=== PATIENT | female | born 1950 | race Caucasian/White ===

== ENCOUNTER 2016-12-06 23:50 | Emergency (ER) | payer MEDICARE, MEDICAID ==
[~2016-12-06] VITALS: Ht 165.1 cm; Wt 72.6 kg
[2016-12-07 00:18] LABS: HEMOGLOBIN 12.1 g/dL (12.2-16.2); LYMPH # 1.3 K/mm3 (0.7-4.5); LYMPH % 27.7 % (10-50.0)
--- NOTE | 2016-12-07 00:27 | Emergency Room Report ---
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 N Clinical Suspician of Infection? N Mental Status: 1 - Regular (Normal Baseline) Sepsis Risk:Low Sepsis Risk Have you (or family members/close friends) recently traveled outside the [place]? N If Yes, where/when: Have you had exposure to infectious disease within the past month? N TB? Other? Specify: Source patient, RN notes reviewed, EMS, detention records, old records Exam Limitations no limitations Cardiac Chest Pain Chest pain indicative of cardiac No Timing/Duration this evening Severity moderate ALLERGIES Coded Allergies: No Known Drug Allergies (Mild, 12/19/15) Home Medications Active Scripts Furosemide (Lasix) 20 MG PO DAILY #30 TAB Prov: 03/27/16 Na Phos,M-B/Na Phos,Di-Ba (Fleet Enema Extra) 230 ML RC PRN PRN constipation #1 Ref 1 Prov: 09/19/15 Reported Medications Potassium Chloride (Klor-Con 10) 10 MEQ PO BID #60 Donepezil HCl (Donepezil 5MG) 15 MG PO DAILY #30 TAB Metoprolol Tartrate 25 MG PO BID #60 TAB Memantine HCl 10 MG PO BID #60 Lamotrigine 50 MG PO BID #60 Gabapentin (Gabapentin 100MG) 100 MG PO BID #60 Loperamide Hcl (Loperamide) 2 MG PO Q6HP PRN STOMACH #30 Lorazepam (Lorazepam 1MG) 1 MG PO Q4HP PRN AGITATION Polyethylene Glycol 3350 (Miralax) 17 GM PO DAILYP PRN CONSTIPATION TRAMADOL HCL (Tramadol) 50 MG PO Q6HP PRN PAIN Simvastatin 10 MG PO DAILY CHOLECALCIFEROL (VITAMIN D3) (Vitamin D3) 2,000 IUNITS PO DAILY Rivaroxaban (Xarelto) 20 MG PO DAILY #30 RANITIDINE HCL (Ranitidine HCl) 150 MG PO BID #60 Metformin HCl (Metformin) 500 MG PO BID #60 Levothyroxine Sodium (Levothyroxine 0.025MG) 0.025 MG PO DAILY #30 Risperidone 1 MG PO QHS #30 TAB DILTIAZEM HCL (Diltiazem ER) 120 MG PO DAILY #30 Risperidone (Risperdal 0.25MG Tab) 0.25 MG PO BID History Medical History General CAD? No Angina: No [place]: No Hypertension? Yes Hyperlipidemia? Yes CHF? No DVT? No PE? No COPD? No Asthma? No Anemia? No GERD? No Gastric ulcers? No GI Bleed? No Hernia? No Thyroid Problems? Yes Hypothyroidism? No CVA? No Seizures? No Diabetes? Yes Insulin Dependent: No Insulin Pump: No Home FSBS? Yes Renal Insuffiency? No End Stage Renal Disease? No UTI? No Stones? No BPH? No GB Disease: No Nephritic Syndrome? No Asplenia? No Hepatitis? No Sickle Cell Disease? No Arthritis? No Migraines? No Cataracts? No Glaucoma? No MRSA? No HIV? No TB? No Anxiety? Yes Depression? Yes Cancer? No More? Yes Additional hx: AFIB, HX OF ENCEPHALOPATHY, HX OF PARANOID SXHIZOPHRENIA Immunization Hx DT/Tetanus Unknown Flu [id number] Pneumonia Refuses Surgical Hx Previous Surgery?N Social History Smoking Hx Smoker: Never Smoker Tobacco: No Type N/A Alcohol Alcohol: No Drugs none Review of Systems All Other Systems Reviewed and Negative Constitutional denies fever Eyes denies drainage ENT denies: ear discharge, epistaxis, throat pain. Respiratory denies cough, denies shortness of breath, denies wheezing Cardiovascular denies chest pain, denies palpitations, denies syncope Gastrointestinal denies abdominal pain, denies diarrhea, denies vomiting Genitourinary denies: dysuria, frequency, hesitancy, hematuria. Musculoskeletal see HPI, denies back pain, denies joint pain, denies joint swelling, denies neck pain, other Skin denies rash Psychiatric/Neurological denies anxiety, denies depressed, denies seizure Physical Exam Vital Signs Vital Signs Date Time Temp Pulse Resp B/P Pulse O2 O2 Flow FiO2 Ox Delivery Rate 12/07 0117 96 18 176/97 97 12/06 2352 98.7 104 18 140/99 97 - WBC >12,000 or <4,000 or 10% bands? 2 or more SIRS Criteria Met? B/P:176/97 MAP:112 Creatinine >2.0? UA output<0.5ml/kg/hr for 2 hrs? Platelet count >100,000? Lactate >2.0mmol/1? INR >1.2 or PTT > than 60 sec? Evidence of Organ Dysfunction? Provider documented clinical suspician of infection? N Sepsis Criteria Count: 1 Sepsis Risk: Low Sepsis Risk General Appearance no apparent distress Eye Exam - bilateral eye PERRL, bilateral eye EOMI Ear, Nose, Throat normal ENT inspection, no evid of tongue biting Neck supple, no bruit Respiratory Status No: respiratory distress. Lung Sounds bilateral: lungs clear. 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 No Results/Orders Laboratory Tests 12/07/16 0115: Urine Color YELLOW, Urine Appearance CLEAR, Urine pH 6.5, Ur Specific [place] 1.015, Urine Protein NEGATIVE, Urine Ketones NEGATIVE, Urine Blood NEGATIVE, Urine Nitrate NEGATIVE, Urine Bilirubin NEGATIVE, Urine Urobilinogen 1.0, Ur Leukocyte Esterase NEGATIVE, Urine WBC OCC, Urine Bacteria TRACE, Urine Mucus OCC, Urine Glucose NEGATIVE 12/07/16 0005: Sodium 143, Potassium 4.1, Chloride 105, Carbon Dioxide 31, BUN 20 H, Creatinine 0.8, Estimated Creat Clear 78, Estimated GFR (MDRD) 72, Glucose 104, Calcium 8.7, Total Bilirubin 0.2, AST 13 L, ALT 14, Alkaline Phosphatase 93, Creatine Kinase 27, CK-MB (CK-2) Rel Index 1.9, CK and CKMB Interp < 0.5, Troponin I 0.02, Total Protein 6.0 L, Albumin 3.3 L, Globulin 2.7, Albumin/ Globulin Ratio 1.2, WBC 4.8, RBC 4.11 L, Hgb 12.1 L, Hct 38.7, MCV 94.1, RDW 13.2, Plt Count 219, MPV 7.4, Gran % 67.5, Gran # 3.2, Lymphocytes % 27.7, Monocytes % 4.7, Eosinophils % 0.1, Basophils % 0.0 L, Lymphocytes # 1.3, Monocytes # 0.2, Eosinophils # 0.0, Basophils # 0.0, PUBS MCHC 31.3 L, MCH 29.4 Current Medication Orders Sig/Nathaniel Start time Last Medication Dose Route Stop Time Status Admin Sodium Chloride 10 ML PRN PRN 12/06 2344 AC IV 12/07 2356 Orders Procedure Date/time Status DIET-NOTHING BY MOUTH 12/07 B Active PELVIS AP ONLY 12/[address] HEAD W/O CONTRAST 12/[address] CERVICAL SPINE W/O CONT. 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 ST/Twave chgs XRAY/CT/US XRAY/CT/US 1 XRAY chest, pelvis XR interpretation by reviewed by me Xray Results no fracture seen XRAY/CT/US 2 CT head, C-spine CT interpretation by discussed w/radiologist Time results known: 0244 CT Results no fracture seen Departure Departure Time of Disposition 024 Disposition DC Home or Self Care(routine) Clinical Impression Primary Impression: Dizziness Secondary Impressions: A-fib Qualifiers: Atrial fibrillation type: chronic Qualified Code: I48.2 - Chronic atrial fibrillation Head contusion Qualifiers: Encounter type: initial encounter Contusion of head detail: unspecified part of head Qualified Code: S00.93XA - Contusion of unspecified part of head, initial encounter Condition STABLE Referrals Adrian May MD (Family) Patient Instructions How to Prevent Falls Additional Instructions resume meds and see pcp for follow up Discharge Counseling Counseled pt/family regarding diagnosis, test results, medications/RX, follow up needs ED Critical Care Critical Care No at 0252
[2016-12-07 01:00] LABS: BUN 20 mg/dL (7-18); GFR (ESTIMATED) 72 ML/MIN (59-)
[2016-12-07 01:24] LABS: URINE BILIRUBIN - DIPSTICK NEGATIVE (NEG); URINE BLOOD NEGATIVE (NEG)
[2016-12-07 03:09] VITALS: BP 176/97
--- NOTE | 2016-12-07 07:45 | RADIOLOGY REPORT PS360 ---
CHEST(2 VIEWS-NOT PORTABLE) COMPARISON: Oral upright chest 03/23/2016 HISTORY: Chest pain after a fall TECHNIQUE: PA and lateral chest FINDINGS: The lung levy are fairly well-expanded and appear clear of infiltrate. There is moderate aortic tortuosity with mild cardiomegaly but is no evidence of failure. There are calcified left hilar nodes. There are mild degenerative changes of the upper thoracic spine. IMPRESSION: Nonacute chest findings
--- NOTE | 2016-12-07 07:46 | RADIOLOGY REPORT PS360 ---
PELVIS AP ONLY COMPARISON: None HISTORY: Leg pain after a fall TECHNIQUE: AP pelvis FINDINGS: The iliac bones and pubic bones appear intact. Both hips are normally articulated with no evidence of fracture. There is mild asymmetrical joint space narrowing of the left hip joint. The SI joints and symphysis pubis appear normal. There is mild disc space narrowing and osteophytic spurring at the L4-5 level. IMPRESSION: Mild osteoarthritis left hip and degenerative disc disease L4-5, pelvis negative for acute fracture
--- NOTE | 2016-12-07 07:48 | RADIOLOGY REPORT PS360 ---
CT HEAD W/O CONTRAST COMPARISON: Noncontrast CT scan of brain 03/23/2016 HISTORY: Patient fell hitting left side of head TECHNIQUE: Multiaxial scans obtained from base skull to the vertex and were performed without IV contrast. FINDINGS: The base of the skull is normal, the mastoids are clear. The ventricular system is normal. There is no ischemic infarct or bleed and there are no extra-axial fluid collections. The sylvian fissures and cortical sulci are mildly prominent. Bony calvarium is intact. IMPRESSION: Findings of mild age-appropriate cortical atrophy no acute intracranial pathology noted, agree the [facility] report.
--- NOTE | 2016-12-07 07:50 | RADIOLOGY REPORT PS360 ---
CT CERVICAL SPINE W/O CONT COMPARISON: None HISTORY: Neck pain after a fall TECHNIQUE: Multiple axial scans of the cervical spine were obtained. Sagittal coronal reformats were evaluated as well. FINDINGS: There is normal curvature and alignment. There is mild generalized osteopenia. There is disc space narrowing and posterior and anterior osteophytic spurring at the C5-6 level. There is mild neural foraminal narrowing on the left side C5-C6 secondary to spurring of the uncinate joints. The prevertebral soft tissues are normal and the odontoid is normal. IMPRESSION: Generalized osteopenia, moderate degenerative disc disease C5-6, no acute pathology noted, agree the [facility] report
--- OUTSIDE RECORDS SUMMARY | 2016-12-14 01:29 | External Medical Summary Rpt | CCD ---
Author Author , DONNIE Organization DONNIE Address Unknown Phone [email or web address] Care Team Providers Care Assurance Sourcing Manager Name Role Phone ABOChaitanya PENALOZA TAR, Unavailable Unavailable ABOU TREMAINE TAR SUSIE MAR, SUSIE MAR Unavailable Unavailable [facility] Unavailable Unavailable MANAGEMENT, [facility] Unavailable Unavailable MANAGEMENT,, [facility], DAVID RUTH, DAVID RUTH Unavailable Unavailable [facility] Unavailable Unavailable [facility], [facility], Unavailable Unavailable [facility] RESENDIZ Unavailable Unavailable YUNIOR NICHOLSON, OLIVIA NICHOLSON Unavailable Unavailable CARLITOS BAKER, Unavailable Unavailable CARLITOS BAKER [facility] Unavailable Unavailable MEDICAL GROUP, [facility] JOSE DE JESUS ROGER Unavailable Unavailable CESIA THOMASKE BEINEKE Unavailable Unavailable BESSON, BESSON Unavailable Unavailable BHUTTA, DUKE J, Unavailable Unavailable BHUTTA, DUKE J [facility] Unavailable Unavailable ASSOC, [facility] JONES ALL, JONES ALL Unavailable Unavailable BROWN CARMINE, BROWN CARMINE Unavailable Unavailable [facility] Unavailable Unavailable SERVICE, [facility] Unavailable Unavailable SERVICE, [facility] DELILAH, ABDIAZIZ S, Unavailable Unavailable DELILAH, ABDIAZIZ S [facility] Unavailable Unavailable SPECIALIS, [facility] Unavailable Unavailable ASSOC, [facility] CHOLERA AUSTIN, CHOLERA Unavailable Unavailable [facility]USTIN [facility] Unavailable Unavailable INC, [facility], Unavailable Unavailable [facility] Unavailable Unavailable [facility], [facility] Unavailable Unavailable [facility], [facility] AGUILAR OSIEL, AGUILAR OSIEL Unavailable Unavailable BARB GRE, BARB Unavailable Unavailable GRE BARB PAT, BARB Unavailable Unavailable PAT CRAGER JAM, CRAGER Unavailable Unavailable JAM HAYDE, HAYDE Unavailable Unavailable HAYDE KENNETH, Unavailable Unavailable HAYDE KENNETH [facility] Unavailable Unavailable ASSOC, [facility] Unavailable Unavailable ASSOC, [facility] Un[facility] Unavailable [facility], [facility] Unavailable Unavailable ANKLE, [facility] SEBASTIÁN RAN, SEBASTIÁN Unavailable Unavailable RAN MAY JENNIFER, MAY JENNIFER Unavailable Unavailable HEAVEN OLVERA, Unavailable Unavailable HEAVEN OLVERA MADELINE AUSTIN, MADELINE AUSTIN Unavailable Unavailable DUKES JENNIFER, DUKES JENNIFER Unavailable Unavailable [facility] Unavailable Unavailable SPECIALI, [facility] SHABBIR RABIA, SHABBIR Unavailable Unavailable RABIA ULI SHEA, Unavailable Unavailable U[facility] SHE[facility] Unavailable Unavailable LLC, [facility] [email or web address] [facility] Unavailable Unavailable LLC, [facility] [email or web address] [facility] Unavailable Unavailable CORPORATI, [facility], [facility] Unavailable Unavailable [facility], [facility] Unavailable Unavailable [facility], [facility] AND Unavailable Unavailable [facility], [facility] Unavailable [facility]available [facility] Unavailable Unavailable TRANSPORTATION SER, [facility] LEIJA STAR, LEIJA STAR Unavailable Unavailable BEACH ELZ, BEACH Unavailable Unavailable ELZ ALEJANDRA BEACH T, Unavailable Unavailable ALEJANDRA BEACH EYAL, EYAL Unavailable Unavailable [facility] Unavailable Unavailable CORPOR[facility], [facility] GREEN MAR, GREEN MAR Unavailable Unavailable [facility], Unavailable Unavailable [facility] GRIMBALL EDW, Unavailable Unavailable [facility] KNIGHT TATUM, KNIGHT TATUM Unavailable Unavailable CARLITOS SUBRAMANIAN, Unavailable Unavailable CARLITOS SUBRAMANIAN [facility] Unavailable Unavailable INC, [facility] Unavailable Unavailable HOSPITAL P, [facility] HAY, RUSTY L, HAY, Unavailable Unavailable RUSTY L GREGORY, GREGORY Unavailable Unavailable GREGORY, GREGORY Unavailable Unavailable HILTY HOL, HILTY HOL Unavailable Unavailable [facility], Unavailable Unavailable [facility] HO[facility]LE[facility] AND, Unavailable Unavailable HOELLEIN AND OKRTNEY, KORTNEY Unavailable Unavailable KORTNEY ELISA, KORTNEY ELISA Unavailable Unavailable [facility] Unavailable Unavailable CARE LL, [facility] LOO IBR, LOO IBR Unavailable Unavailable [facility] Unavailable Unavailable EQUIPMEN, [facility] Unavailable Unavailable [facility], [facility] Unavailable Unavailable EQUIPMENT, [facility] PADILLA MACARIO, PADILLA Unavailable Unavailable MACARIO JICHA GRE, JICHA GRE Unavailable Unavailable FOUNTAIN ONEYDA, FOUNTAIN ONEYDA Unavailable Unavailable [facility] ONEYDA, [facility] ONE[facility]DA Unavailable Unavailable JOYO NOS, JOYO NOS Unavailable Unavailable JOSE, VICENTE M, Unavailable Unavailable VICENTE GARCIA M KARSNER CAR, KARSNER Unavailable Unavailable CAR CONCETTA FISTER CHRIS, Unavailable Unavailable CONCETTA FISTER CHRIS [facility], Unavailable Unavailable [facility] Unavailable Unavailable IMAGING ASS, [facility] CHIN TRENT, CHIN TRENT Unavailable Unavailable CHIN GUL, CHIN GUL Unavailable Unavailable CAMERON BAUDILIO, CAMERON BAUDILIO Unavailable Unavailable CARLOS ENRIQUE CHI, CARLOS ENRIQUE [facility] Unavailable [facility] Un[facility] Unavailable Unavailable HOLDING, [facility] Unavailable Unavailable HOLDINGS, [facility] Unavailable Unavailable HOLDINGS, [facility] Unavailable Unavailable AGENCY, [facility] Unavailable Unavailable [facility]ENCY, [facility] Unavailable Unavailable AGENCY ON AGING, [facility] Unavailable Unavailable [facility] Unavailable Unavailable [facility], [facility] Unavailable Unavailable [facility], [facility] LANGFELS SON, Unavailable Unavailable [facility] SON DAMON JR DWI, DAMON Unavailable Unavailable JR DWI [facility] Unavailable Unavailable SUPPLY, [facility] Unavailable Unavailable SUPPLY INC., [facility] WOOD MCDONALD, Unavailable Unavailable WOOD MCDONALD LUKAT HENRY, LUKAT HENRY Unavailable Unavailable LUKAT HENRY, LUKAT HENRY Unavailable Unavailable [facility] Unavailable Unavailable INC, [facility] Unavailable Unavailable SERVICES, [facility] CASTRO ROCHA, Unavailable Unavailable CASTRO ROCHA, Unavailable Unavailable RALPH JENKINS, Unavailable Unavailable RALPH ALFARO JR CLI, Unavailable Unavailable RAMEY JR CLI RAMEY JR CLI, Unavailable Unavailable [facility]Y [facility] CLI URENA STAR, URENA STAR Unavailable Unavailable URENA STAR, URENA STAR Unavailable Unavailable HARRIS DEN, Unavailable Unavailable STEVEN DEN REBEL AUSTIN, Unavailable Unavailable REBEL AVILA [address] [place] [address], Unavailable Unavailable [facility] MED[facility] FLORIN, MEDROSO Unavailable Unavailable FLORIN [facility] Unavailable Unavailable SERV ALLIGATOR SHEAR OPERATOR R, [facility] SERV ALLIGATOR SHEAR OPERATOR R [facility] Unavailable Unavailable SERV ALLIGATOR SHEAR OPERATOR R, [facility] SERV ALLIGATOR SHEAR OPERATOR R [facility] Unavailable Unavailable INC, [facility] RONALD WOLFE Unavailable Unavailable AIDEN Manuel CHRISTOPHER J [facility] Unavailable Unavailable [facility], [facility] Unavailable Unavailable [facility], [facility] Unavailable Unavailable ASSOC LABORATORY, [facility] Unavailable Unavailable ASSOCIATE, [facility] CRAFT MANAGER [facility] Unavailable Unavailable [facility]OCIATES, [facility], Unavailable Unavailable [facility] NATHALIE HOOK, Unavailable Unavailable NATHALIE HOOK JENNIFER, JOSH Unavailable Unavailable JENNIFER ASHA KWA, ASHA KWA Unavailable Unavailable [facility] Unavailable [facility] [place], [facility] [place], Unavailable Unavailable PLL[facility], [facility] Unavailable Unavailable CARE [facility], [facility] PETTEY JAM, PETTEY Unavailable Unavailable JAM [facility] Unavailable Unavailable [facility] Unavailable Unavailable [facility] & Unavailable Unavailable INTER[facility], [facility] PROUDFOOT GLE, Unavailable Unavailable [facility] QASHOU WILSON, QASHOU Unavailable Unavailable [facility] Unavailable Unavailable [facility], [facility] RASLAU FLA, RASLAU Unavailable Unavailable FLA TAVARES MAY, TAVARES MAY Unavailable Unavailable REKHRAJ, SADAF, Unavailable Unavailable REKHRAJ, SADAF KIMBLE GRE, KIMBLE Unavailable Unavailable GRE ARANA SEA, ARANA Unavailable Unavailable SEA [facility], [facility] Unavailable Unavailable LICO JENIFFER, LICO JENIFFER Unavailable Unavailable [facility] Unavailable Unavailable ENTERPRISES, [facility] ENTERPRISES HUSSEIN COR, [facility] Unavailable Unavailable Unavailable Unavailable PHYSICIA, PHYSICIA FERNANDEZ JAY JAY, FERNANDEZ JAY JAY Unavailable Unavailable FERNANDEZ, KHALED, FERNANDEZ, Unavailable Unavailable KHALED SHARAN WHITING, SHARAN Unavailable Unavailable JOHANNE WHITING, SHARAN Unavailable Unavailable CASTRO MENDEZ, Unavailable Unavailable CASTRO TSANG SCHUDHEISDov BONNER, Unavailable Unavailable SCHUDHEISZ BONNRE SCIFRES ANG, SCIFRES Unavailable Unavailable ANG SCIFRES ANG, SCIFRES Unavailable Unavailable ANG SHI RIGO, SHI Unavailable Unavailable RIGO SHANKS LYN, SHANKS Unavailable Unavailable LYN SKEENS PAUL, SKEENS Unavailable Unavailable PAUL SKEENS, MARYAM L, Unavailable Unavailable SKEENS, MARYAM L [facility], Unavailable Unavailable [facility], Unavailable Unavailable [facility], Unavailable [facility]available [facility], Unavailable Unavailable [facility] Unavailable Unavailable EQUIPME, [facility] Unavailable Unavailable EQUIPME, [facility] Unavailable Unavailable EMERGENCY PHYS, [facility] EMERGENCY PHYS [facility] Unavailable Unavailable PHYSICIAN SERVI, [facility] PHYSICIAN SERVI [facility] & Unavailable Unavailable ORTHOPAEDI, [facility], Unavailable Unavailable [facility] ALE BON, Unavailable Unavailable ALE BON SUPINSKI JENNIFER, Unavailable Unavailable SUPINSKI JENNIFER EARL STA, Unavailable Unavailable EARL STA THANNOLI, BECCA, Unavailable Unavailable THANNOLI, BECCA [facility] Unavailable Unavailable DISORDER, [facility] Unavailable Unavailable [place], [facility] [place] MEI RENATO, MEI RENATO Unavailable Unavailable [facility], Unavailable Unavailable [facility] EMS, [place] Unavailable [facility], [place] Unavailable Unavailable [facility] HOSP [facility], Unavailable Unavailable [facility] Unavailable [facility]available HOSPITAL-HOSPITALIS, [facility]PITAL[facility]OSPITAL[facility] Unavailable Unavailable HOSPITAL-HOSPITALIST, [facility] HOSPITAL-HOSPITALIST [facility] Unavailable Unavailable DEPARTM, [facility] Unavailable Unavailable DEPART, [facility] Unavailable Unavailable DEPARTMENT, [facility] DEPARTMENT [facility], Unavailable Unavailable [facility]; Unavailable Unavailable [facility], [facility]; [facility]; Unavailable Unavailable [facility], [facility]; [facility] Unavailable Unavailable [facility] [address] Unavailable Unavailable BREE IV ALL, Unavailable Unavailable BREE IV ALL VICENTA GIRON, Unavailable Unavailable VICENTA GIRON LAURA D, Unavailable Unavailable LOUIS, BEVERLY D WINKLEY JAM, WINKLEY Unavailable Unavailable JAM WOODROOF D., WOODROOF Unavailable Unavailable D. WOODY JAM, WOODY JAM Unavailable Unavailable WOODY II JAM, WOODY Unavailable Unavailable II JAM AMBERLY, CASTRO R, Unavailable Unavailable CASTRO GAMING R MORGAN MAYNOR, Unavailable Unavailable MORGAN MAYNOR KELLEY KOL, KELLEY Unavailable Unavailable KOL YANICKO JR CARLTON, Unavailable Unavailable YANICKO JR CARLTON YANICKO JR CARLTON, Unavailable Unavailable YANICKO JR CARLTON SHANDA MEN, SHANDA Unavailable Unavailable MEN ZAGUROVSKAYA MAR, Unavailable Unavailable ZAGUROVSKAYA MAR ZIOLKOWSKI RENEE, Unavailable Unavailable ZIOLKOWSKI RENEE Purpose Continuity of Care Document - 03-19-2007 through 2016 Problems Code Diagnosis DOS Provider Status B351 TINEA 08-02-2016 GREGORY UNGUIUM [id number] PAIN IN 08-02-2016 GREGORY RIGHT TOES [id number] PAIN IN 08-02-2016 GREGORY LEFT TOES E119 TYPE 2 06-03-2016 [facility]ETES MEDICAL MELLITUS SUPPLY [email or web address] WITHOUT COMPLICATIO NS I4891 UNSPECIFIED 04-19-2016 [facility] N R9431 ABNORMAL 04-19-2016 [facility] MED[facility] ELECTROCARD SERV IOGRAM [facility] M1711 UNILATERAL 04-16-2016 [facility]STE[facility]AR[facility] TIS RIGHT KNEE M1712 UNILATERAL 04-16-2016 [facility] OSTEOARTHRI [facility] TIS LEFT KNEE L40358 EFFUSION 04-16-2016 [facility] LEFT KNEE [facility] I482 CHRONIC 03-25-2016 [facility] A[facility]IAL [facility], FIBRILLATIO [facility] N R55 SYNCOPE AND 03-25-2016 [facility] COLLAPSE PHYSICIANS, [facility] Z0389 ENCOUNTER 03-25-2016 [facility] SUSPCT DZ & IMAGING ASS COND RULED OUT I959 HYPOTENSION 02-24-2016 [facility] UNSPEC[facility] ASS R51 HEADACHE 02-24-2016 [facility] R079 CHEST PAIN 12-06-2015 [facility] P R8458BP CONTUSION 12-06-2015 [place] [facility] P ENCOUNTER O294RMR FALL SAME 12-06-2015 [facility] ALFONSOL SLIP [facility] TRIP W/O HOSPITAL P SUB STRIK OBJ INIT T51723 UNS PLACE 12-06-2015 [facility] NON [facility] P [facility]ACE OF OCCUR EXT I10 ESSENTIAL 09-19-2015 [facility]IMARY [facility] HYPERTENSIO INC N K319 DISEASE OF 09-19-2015 [facility]OMACH [facility] DUODENUM INC UNSPECIFIED K5900 CONSTIPATIO 09-19-2015 [facility] N [facility] HOS[facility] UNSPECIFIED INC N390 URINARY 09-19-2015 [facility] TRACT [facility] INFECTION INC SITE NOT SPECIFIED R630 ANOREXIA 09-19-2015 [facility] R634 ABNORMAL 09-19-2015 [facility] WEIGHT LOSS MEM HOS[facility] INC N27030 PERSONAL 09-19-2015 [facility] HISTORY OF MEM HOSP NICOTINE INC DEPENDENCE R69 ILLNESS 07-06-2015 [facility] UNSPECIFIED TRANSPORTAT ION SER [id number] DSPL OBL FX 07-06-2015 [place] SHAFT LT MEDICAL FIBULA IMAGING ASS SUBSQT CLOS FX RTN [id number] OT FX 07-06-2015 [facility] UPPER & MEM HOSP LOWER UNS INC FIBULA INIT ENC CLOS FX [id number] OT FX 06-02-2015 [facility] U[facility]ER & HOME LOWER LT MEDICAL FIBULA INIT EQUIPME ENC CLOS FX [id number] DISPL 05-31-2015 [place] SPIRAL FX MEDICAL SHAFT LT IMAGING ASS FIB SUBS CLOS FX RTN [id number] OT FX 05-31-2015 [facility] UPPER & PHYSICIANS LOWER LT GROUP FIB SUBSQT CLOS RTN HEAL O52EBSE UNSPECIFIED 05-17-2015 [facility] FALL PHYSICIANS INITIAL GROUP ENCOUNTER J86509 PAIN IN 05-14-2015 [place] LEFT ANKLE MEDICAL IMAGING ASS N06653 PAIN IN 05-14-2015 [place] LEFT LOWER MEDICAL LEG IMAGING ASS C99438 PAIN IN 05-14-2015 [facility] LEFT FOOT MEDICAL IMAGING ASS M7989 OTHER 05-14-2015 [place] SPECIFIED MEDICAL SOFT TISSUE IMAGING ASS DISORDERS R600 LOCALIZED 05-14-2015 [facility] E[facility]MA [facility] SERVICE E039 HYPOTHYROID 05-08-2015 WO[facility] ISM CHOLERA DO UNSPECIFIED INC I639 CEREBRAL 05-05-2015 [place] INFARCTION MEDICAL UNSPECIFIED IMAGING ASS R4182 ALTERED 05-05-2015 [facility] MENTAL [facility]ICAL STATUS IMAGING ASS UNSPECIFIED G9340 ENCEPHALOPA 04-27-2015 [facility] UNSPECIFIED MEDICAL GROUP M179 OSTEOARTHRI 04-25-2015 [facility] TIS OF KNEE RADIOLOGY ASSOC UNSPECIFIED D69369 PAIN IN 04-25-2015 [facility] LEFT HIP RADIOLOGY ASSOC A60093 SPONDYLOSIS 04-25-2015 [facility] W/O RADIOLOGY MYELOPATH/R ASSOC ADICULOPATH Y LUMB RGN M545 LOW BACK 04-25-2015 [facility] PAIN RADIOLOGY ASSOC L62302 PAIN IN 04-25-2015 [facility] LEFT LEG HEALTH MEDICAL GROUP G9341 METABOLIC 04-23-2015 [facility] ENCEPHALOPA HEALTH THY MEDICAL GROUP I313 PERICARDIAL 04-22-2015 [facility] EFFUSION HEALTH NONINFLAMMA MEDICAL TORY GROUP I340 NONRHEUMATI 04-22-2015 [facility] C MITRAL HEALTH VALVE MEDICAL INSUFFICIEN GROUP CY I361 NONRHEUMATI 04-22-2015 [facility] C TRICUSPID HEALTH VALVE MEDICAL INSUFFICIEN GROUP CY I371 NONRHEUMATI 04-22-2015 [facility] C PULMONARY HEALTH VALVE MEDICAL INSUFFICIEN GROUP CY I6523 OCCLUSION & 04-22-2015 [facility] STENOSIS HEALTH BILATERAL MEDICAL CAROTID GROUP ARTERIES R479 UNSPECIFIED 04-21-2015 [facility] SPEECH RADIOLOGY DISTURBANCE ASSOC S R531 WEAKNESS 04-21-2015 [facility] B73838V UNS FB 04-21-2015 [facility] LARYNX RADIOLOGY CAUSING ASSOC ASPHYXIATIO N INITIAL ENC N40445 CORTICAL 03-18-2015 SCIFRES ANG AGE-RELATED CATARACT BILATERAL H5202 HYPERMETROP 03-18-2015 SCIFRES ANG IA LEFT EYE H5203 HYPERMETROP 03-18-2015 SCIFRES ANG IA BILATERAL E07683 REGULAR 03-18-2015 SCIFRES ANG ASTIGMATISM BILATERAL E559 VITAMIN D 03-17-2015 COMBINED DEFICIENCY PHYSICIANS UNSPECIFIED LA E785 HYPERLIPIDE 03-17-2015 COMBINED NAYANA PHYSICIANS UNSPECIFIED LA 4359 UNSPECIFIED 11-02-2014 [facility] TRANSIENT SERV CEREBRAL FOUNDATION ISCHEMIA 34557 OTHER 11-02-2014 [facility] ALTERATION AMBULANCE OF SERV [place]IG[place] [address] ATRIAL 10-19-2014 [facility]ICAL FIBRILLATIO SERV N FOUNDATION 52137 NONSPECIFIC 10-19-2014 [facility] ABNORMAL SERV ELECTROCARD FOUNDATION IOGRAM 04606 DIAB W/O 10-12-2014 [facility] COMP TYPE [place] II/UNS NOT LLC STATED UNCNTRL 4019 UNSPECIFIED 10-12-2014 [facility]ENTIAL [facility] N 28772 HYPERTONICI 10-12-2014 [facility] TY OF [place] BLADDER [facility] 1101 DERMATOPHYT 09-29-2014 [facility] OSIS OF FOOT & NAIL ANKLE CENT 51885 DIAB 09-29-2014 [facility] W/PERIPH FOOT & CIRC D/O ANKLE CENT TYPE II/UNS NOT UNCNTRL 7295 PAIN IN 09-29-2014 [facility] SOFT FOOT & TISSUES OF ANKLE CENT LIMB 54102 09-24-2014 [facility] TRANSIT ENTERPRISES 7840 HEADACHE 08-29-2014 EMERGENCY COVERAGE CORPORATI 78892 CHEST PAIN 08-29-2014 [facility] UNSPECIFIED HOSPITAL-HO SPITALIS 2724 OTHER AND 08-17-2014 [facility] UNSPECIFIED [place] [facility] HYPERLIPIDE NAYANA 06494 ALTERED 07-17-2014 [facility] MENTAL EMS STATUS 67253 ICI OTH&UNS 07-17-2014 [facility] NATR W/O EMS OPEN ICW UNS STATE CONSC 12387 ACUTE 06-26-2014 [facility] RESPIRATORY [facility] PHYSICIA 9721 POISN 06-26-2014 [facility] GLYCOSIDES& PHYSICIA RX SIMILAR ACTION 496 CHRONIC 06-23-2014 [facility] [place] [facility] RADIOLOGY OBSTRUCTION NEC 51815 OTHER 06-22-2014 [facility] SPECIFIED RADIOLOGY CARDIAC ASSOC DYSRHYTHMIA S 4279 UNSPECIFIED 06-22-2014 [facility] CARDIAC FIRE/EMS DYSRHYTHMIA 5180 PULMONARY 06-20-2014 [facility] COLLAPSE [facility]OLOGY ASSOC 586 UNSPECIFIED 06-19-2014 CARDIO AND RENAL ELECTRO FAILURE SPECIALIS 5119 UNSPECIFIED 06-18-2014 [facility] PLEURAL [facility] EFFUSION ASSOC 31341 DIAB W/O 06-14-2014 KAROLINE KING MENTION CLI COMP TYPE II/UNS TYPE UNCNTRL 4011 ESSENTIAL 06-14-2014 KAROLINE KING HYPERTENSIO CLI N, BENIGN 79415 SINOATRIAL 06-14-2014 [facility] DYSFUNCTION 5849 ACUTE 06-14-2014 KAROLINE KING KIDNEY CLI FAILURE UNSPECIFIED E9421 CARDIOTONIC 06-14-2014 [facility] GLYCOS[place]ES [place] [address] OTHER 06-12-2014 [facility] NONSPECIFIC RADIOLOGY ABNORMAL ASSOC FINDING OF LUNG FIELD 58543 OTHER 06-10-2014 [facility] DISEASES OF RADIOLOGY LUNG NOT ASSOC ELSEWHERE CLASSIFIED V5882 ENCOUNTER 06-10-2014 [facility] FITTING&ADJ RADIOLOGY ASSOC NON-VASCULA R CATHETER NEC 10758 METABOLIC 06-09-2014 [facility] ENCEPHALOPA [facility] THY REGIONAL HOS 4240 MITRAL 06-09-2014 [facility] DISORDERS 4241 AORTIC 06-09-2014 [facility] DISORDERS 4242 TRICUSPID 06-09-2014 [facility] DISORDERS SPEC NONRHEUMATI C 63790 ATRIAL 06-09-2014 [facility] HOS 4299 UNSPECIFIED 06-09-2014 [facility] DISEASE 77195 METHICILLIN 06-09-2014 [facility] RESISTANT UN[facility] PNEUMONIA REGIONAL D/T STAPH HOS AUREUS 22536 OTHER SHOCK 06-09-2014 [facility] MENTION OF REGIONAL TRAUMA HOS 01172 OTHER 06-09-2014 [facility] DYSPNEA AND RADIOLOGY ASSOC RESPIRATORY ABNORMALITI ES 7907 BACTEREMIA 06-09-2014 [facility] REGIONAL HOS 9778 POISONING 06-09-2014 [facility] OTHER SPEC MEDICAL DRUGS&MEDIC INAL SUBSTANCES 9779 POISONING 06-09-2014 [facility] UNSPECIFIED EMS DRUG/MEDICI NAL SUBSTANCE 9899 TOX EFF UNS 06-09-2014 [facility] NONMEDICINA L SRC E9505 LUCERO&SLF-INF 06-09-2014 [facility] LICT POISN MEDICAL UNS RX/MEDICINA L [facility] V5881 FITTING AND 06-09-2014 [facility] ADJUSTMENT RADIOLOGY OF ASSOC VASCULAR CATHETER 250 DIABETES 05-24-2014 [facility] MELLITUS [facility] AREA AGENCY 64515 ATHEROSLERO 05-14-2014 [facility] NATV ART FOOT & EXTREM ANKLE CENT W/INTERMIT CLAUDICAT 81414 MORBID 05-13-2014 [facility] OBESITY CARDIOLOGY 12643 UNSPECIFIED 05-13-2014 [facility] SLEEP CARDIOLOGY APNEA 40036 PRECORDIAL 05-13-2014 [facility] PAIN CARDIOLOGY 83751 HYPERSOMNIA 05-10-2014 THE [facility]G AND SLEEP UNSPECIFIED DISORDER 27479 OTHER SLEEP 05-10-2014 [facility] DISTURBANCE DISORDER S 4589 UNSPECIFIED 04-08-2014 [facility] HYPOTENSION REG HOSPITAL V5869 LONG-TERM 04-08-2014 [facility] (CURRENT) UNION USE OF REG OTHER HOSPITAL MEDICATIONS E9504 LUCERO&SLF-INF 04-07-2014 [facility] OTH PHYS RX&[facility]ICINA L [facility] 87247 SPASM OF 03-15-2014 EMERGENCY MUSCLE COVERAGE CORPORATI 7802 SYNCOPE AND 03-15-2014 [facility] 8242 CLOSED 03-15-2014 [facility] FRACTURE OF IMAGING & LATERAL INTERVENTI MALLEOLUS 23519 UNSPECIFIED 03-15-2014 [facility]; SPRAIN AND MONTICEL STRAIN 920 CONTUSION 03-15-2014 EMERGENCY OF FACE COVERAGE SCALP AND CORPORATI NECK EXCEPT EYE 01388 HEAD 03-15-2014 EMERGENCY INJURY, COVERAGE UNSPECIFIED CORPORATI V714 OBSERVATION 03-15-2014 [facility] FOLLOWING IMAGING & OTHER INTERVENTI ACCIDENT 26267 UNSPECIFIED 03-11-2014 [facility] INFECTION IN CCE & UNS SITE 78638 NAUSEA WITH 03-11-2014 [facility]OMIT[facility] CRAFT MANAGER 15722 VOMITING 03-11-2014 EMERGENCY ALONE COVERAGE CORPORATI 45971 CORONARY 03-02-2014 [facility] CORONARY ARTERY 24372 SHORTNESS 03-02-2014 [facility] BREATH CARDIOLOGY 7140 RHEUMATOID 02-16-2014 [place] [address] MIXED 02-16-2014 PERSONAL INCONTINENC TOUCH HOME E URGE AND CARE OF STRESS 74925 UNSPECIFIED 01-12-2014 [facility] CONSTIPATIO ASSOCIATE N 7881 DYSURIA 01-12-2014 [facility] CRAFT MANAGER 63058 OBSTRUCTIVE 01-10-2014 [facility]; [facility] 93538 HYPOXEMIA 01-10-2014 [facility]; [facility] 41895 UNSPECIFIED 12-10-2013 [facility] TINNITUS 75435 SENSORINEUR 12-10-2013 [facility] AL HEARING LOSS BILATERAL 3899 UNSPECIFIED 12-10-2013 [facility] NO[facility] HEARING AND THROAT LOSS SPECIALI 2449 UNSPECIFIED 11-21-2013 [facility] HYPOTHY[facility]ID [facility] ISM 4139 OTHER AND 11-20-2013 [facility] UNSPECIFIED SERV [facility] 4293 CARDIOMEGAL 11-20-2013 [facility] 4471 STRICTURE 11-20-2013 [facility] ARTERY SERV [facility] 40290 OTHER 11-20-2013 [facility] N PH[facility]ICIAN FATIGUE SERVI 7869 OTH 11-20-2013 [facility] SYMPTOMS SERV INVOLVING FOUNDATION RESPIRATORY SYSTEM&CHES T 58385 OTHER 11-19-2013 [facility] CONVULSIONS EMS 7011 ACQUIRED 11-10-2013 [facility] KERATODERMA FOOT & ANKLE CENT 46017 UNSPECIFIED 11-09-2013 [facility] NOSE OTALGIA AND THROAT SPECIALI 49431 UNSPECIFIED 11-09-2013 [facility] NO[facility] AND THROAT TEMPOROMAND SPECIALI IBULAR JOINT DISORDERS 69891 DIAB 10-27-2013 [facility] W/NEURO FOOT & MANIFESTS ANKLE CENT TYPE II/UNS NOT UNCNTRL V741 SCREENING 08-19-2013 [facility] EXAMINATION CONUNTY FOR HEALTH PULMONARY DEPARTM TUBERCULOSI S 7850 UNSPECIFIED 05-17-2013 [facility] RADIOLOGY TACHYCARDIA ASSOC 4254 OTHER 05-13-2013 [facility] CARDIOMYOPA HILDA 4619 ACUTE 05-01-2013 [facility] SINUSITIS, MEDICAL UNSPECIFIED ASSOCIATE 0088 INTESTINAL 04-24-2013 [facility]FECTION [facility] DUE TO OTHER ORGANISM NEC 94662 UNS 04-24-2013 [facility] GASTRITIS&G EMS ASTRODUODIT IS W/O MENTION HEMORR V5867 LONG-TERM 04-24-2013 [facility] USE OF HOSP INC INSULIN 4658 ACUTE URIS 04-03-2013 [facility] OF OTHER MEDICAL MULTIPLE ASSOCIATE SITES 85592 FEVER 04-03-2013 [facility] UNSPECIFIED CRAFT MANAGER 3804 IMPACTED 04-01-2013 [facility] CERUMEN CRAFT MANAGER 4660 ACUTE 01-01-2013 [facility] BRONCHITIS CRAFT MANAGER 2720 PURE 11-05-2012 [facility] [place] [address] UNSPECIFIED 06-24-2012 [facility] ARTHROPATHY ORTHOPAEDI , LOWER LEG 52809 OSTEOARTHRO 06-13-2012 K[facility] Kamara UNSPEC MEDICAL WHETHER ASSOCIATE GEN/LOC UNSPEC SITE 4550 INTERNAL 03-12-2012 [facility] HEMORRHOIDS HOSP INC WITHOUT MENTION COMP 23582 DIVERTICULO 03-12-2012 [facility] SIS OF HOSP INC COLON 71462 ABDOMINAL 03-12-2012 [facility] PAIN RIGHT LOWER QUADRANT 74697 ABDOMINAL 03-12-2012 [facility] ST[facility] PAIN, LEFT LOWER QUADRANT V7651 SPECIAL 03-12-2012 [facility] SCREENING HOSP INC FOR MALIGNANT NEOPLASMS COLON 38025 PAIN IN 02-18-2012 [facility] 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, 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 7810 ABNORMAL 01-30-2012 [facility] INVOLUNTARY HOSP INC MOVEMENTS V5861 LONG-TERM 12-25-2011 [facility] (CURRENT) MEDICAL USE OF ASSOC LA ANTICOAGULA NTS 7804 DIZZINESS 10-31-2011 [facility] AND MEDICAL GIDDINESS ASSOCIATE 2722 MIXED 08-30-2011 [facility] HYPERLIPIDE [facility]ARDIOLOGY NAYANA 20164 OSTEOARTHRO 08-29-2011 [facility] CALL SIS UNSPEC WHETHER GEN/LOC LOWER LEG 79484 PAIN IN 08-27-2011 [facility] JOINT, [facility] 4919 UNSPECIFIED 07-29-2011 [facility] CHRONIC MEDICAL BRONCHITIS EQUIPMENT 412 OLD 07-23-2011 [facility] MYOCARDIAL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 [address] 4 KO M 31 09 09 UG 1 0 PE MG TE R TA BL ET LO 63 03 03 00 40 14 F 16 MA Ac RA 30 -1 -2 .0 & 88 RT ti ZE 40 8- 6- 00 H 61 IN ve PA [address] 3 EZ M 31 09 09 UG 1 0 YA MG NI RE TA BL ET LO 64 12 12 00 20 20 F 16 MA Ac RA 12 -0 -1 .0 & 70 RT ti ZE 50 3- 8- 00 H 19 IN ve PA [address] 3 EZ M 61 08 08 UG 2 0 YA MG NI RE TA BL ET LO 64 11 12 00 10 3 F 16 No Ac RA 12 -2 -0 .0 & 69 t ti ZE 50 5- 4- 00 H 13 Av ve PA [address] 7 ai M 61 08 08 UG la 2 0 bl MG e TA BL ET Immunization Name Date Rout CVX Reac Dose Comm Prov Is Faci e tion ent ider Refu lity Give sed n IIV3 12-02 141 MART No WOO 5-20 NIKI ICEL VACC 08 , LO INE LASHON MEDI SPLI RE MARJ T ASSO VIRU CIAT S ES 0.5 ML DOSA GE IM USE Results Labs Lab Lab Date Result Refere Interp Status Commen Order Detail nces retati t Range on Urinalysis dipstick W Reflex Microscopic panel in Urine (12-07-2016 01:15) Bacteri TRACE O complet a 017 ed [Presen 01:15 ce] in Urine sedimen t by Light microsc opy Mucus OCC OCC complet [Presen 017 ed ce] in 01:15 Urine sedimen t by Light microsc opy Urinalysis dipstick W Reflex Microscopic panel in Urine (12-07-2016 01:15) Appeara CLEAR CLEAR complet nce of 017 ed Urine 01:15 Bilirub NEGATIV NEG complet in 017 E ed [Presen 01:15 ce] in Urine by Test strip Erythro NEGATIV NEG complet cytes 017 E ed [Presen 01:15 ce] in Urine Color YELLOW YELLOW complet of 017 ed Urine 01:15 Ketones NEGATIV NEG complet 017 E ed [Presen 01:15 ce] in Urine by Automat ed test strip Mucus NEGATIV NEG complet [Presen 017 E ed ce] in 01:15 Urine sedimen t by Light microsc opy Nitrite NEGATIV NEG complet 017 E ed [Presen 01:15 ce] in Urine by Test strip Urobili 1.0 NEG complet nogen 017 ed [Presen 01:15 ce] in Urine by Test strip Procedures Procedure DOS Code Location Performer Comment DEBRIDEME 33781 GREGORY GREGORY NT NAIL 7 ANY METHOD 6/> FOR DIAB A5512 [place] ONLY MX 7 MEDICAL MEDICAL DNSITY SUPPLY SUPPLY INSRT DIR [employer] FORMD PRFAB EA DIAB ONLY A5500 [place] FIT CSTM 7 MEDICAL MEDICAL PREP&SPL SUPPLY SUPPLY SHOE MX 9158 [email or web address] DNSITY INSRT ECG 14956 MALLY KORTNEY ROUTINE 7 MEDICAL ECG SERV W/LEAST FOUNDATIO 12 LDS N I&R ONLY RADIOLOGI 06483 RADIOLOGY MUNCI[place] C 7 EXAMINATI ASSOCIATE ON KNEE [address] [place] [address] [place] HEAD/BRAI 7 MEDICAL N W/O IMAGING CONTRAST ASS MATERIAL ECG 24351 SAUL YEAL ROUTINE 7 PHYSICIAN ECG S, PLLC W/LEAST 12 LDS I&R ONLY FINAL G9638 [place] REPORTS 7 MEDICAL W/O DOC IMAGING 1/MORE ASS DOSE REDUCTION TECH FINAL G9638 [place] REPORTS 6 MEDICAL W/O DOC IMAGING 1/MORE ASS DOSE REDUCTION TECH ECG 59520 MAY VILLALOBOS ROUTINE 6 [facility] W/LEAST P 12 LDS I&[place] [address] [place] HEAD/BRAI 6 MEDICAL N W/O IMAGING CONTRAST ASS MATERIAL RADIOLOGI 75735 [place] MARTHA C 6 MEDICAL EXAMINATI IMAGING ON CHEST ASS SINGLE VIEW FRONTAL BLD GLU A4253 PRETTY PRETTY TEST/REAG 6 HOME HOME T STRIPS MEDICAL MEDICAL HOME BLD EQUIPME EQUIPME GLU MON-50 LANCETS A4259 PRETTY PRETTY PER BOX 6 HOME HOME OF 100 MEDICAL MEDICAL EQUIPME EQUIPME ECG 40649 MAY DAMON KING ROUTINE 6 [facility] W/LEAST P 12 LDS I&R ONLY LANCETS A4259 PRETTY PRETTY PER BOX 6 HOME HOME OF 100 MEDICAL MEDICAL EQUIPME EQUIPME BLD GLU A4253 PRETTY PRETTY TEST/REAG 6 HOME HOME T STRIPS MEDICAL MEDICAL HOME BLD EQUIPME [place]QU[place] GLU MON-50 [place] [address] MAY OLVERA INFUSION 6 [facility] THERAPY/P INC INC ROPHYLAXI S /DX 1ST TO 1 HR RADEX ABD 19107 MODESTO JONES ALL COMPL 6 MEDICAL AQT ABD IMAGING W/S/E/D ASS VIEWS 1 VIEW CH RADEX 87246 MAY OLVERA ANKLE 6 [facility] COMPLETE INC INC MINIMUM 3 VIEWS RADIOLOGI 39166 MODESTO JONES ALL C 6 MEDICAL EXAMINATI IMAGING ON ANKLE ASS 2 VIEWS NONEMERG A0120 FEDERATED FEDERATED TRNSPRT: 6 MINI-BUS TRANSPORT TRANSPORT MTN ATION SER ATION SER AREA/OT SYS WALKING L4386 PRETTY OLSEN BOOT 6 HOME HOME NON-PNEUM MEDICAL MEDICAL ATIC EQUIPME EQUIPME PREFAB CUSTOM FIT CAST Q4038 [facility] SUPPLIES 6 PHYSICIAN PHYSICIAN SHORT LEG S GROUP S GROUP CAST ADULT FIBERGLAS S NONEMERG A0120 FEDERATED FEDERATED TRNSPRT: 6 MINI-BUS TRANSPORT TRANSPORT MTN ATION SER ATION SER AREA/OTH SYS RADEX 17850 MAY OLVERA ANKLE 6 [facility] MEM [facility]OS[facility] COMPLETE INC INC MINIMUM 3 VIEWS BLD GLU A4253 PRETTY PRASADRELL TEST/REAG 6 HOME HOME T STRIPS MEDICAL MEDICAL HOME BLD EQUIPME EQUIPME GLU MON-50 LANCETS A4259 PRETTYGARTH PRASADRELL PER BOX 6 HOME HOME OF 100 MEDICAL MEDICAL EQUIPME EQUIPME CLTX DSTL 80456 [facility] PETTEY FIBULAR 6 PHYSICIAN JOHANNE LINCOLN LAT S GROUP MALLS W/O MANJ RADIOLOGI 73014 [place] C 6 MEDICAL KENNETH EXAMINATI IMAGING ON TIBIA ASS & FIBULA 2 VIEWS RADEX 06521 [place] FOOT 6 MEDICAL KENNETH COMPLETE IMAGING MINIMUM 3 ASS VIEWS RADIOLOGI 60323 [place] C 6 MEDICAL KENNETH EXAMINATI IMAGING ON ANKLE ASS 2 VIEWS GROUND A0425 [facility] MILEAGE 6 AMBULANCE AMBULANCE PER SERVICE SERVICE STATUTE MILE AMBULANCE A0429 [facility] SERVICE 6 AMBULANCE AMBULANCE BLS SERVICE SERVICE EMERGENCY TRANSPORT NONEMERG A0120 FEDERATED FEDERATED TRNSPRT: 6 MINI-BUS TRANSPORT TRANSPORT [facility] SY SBSQ 47991 [place] [address] [facility] [place] CARE/DAY DO INC 25 MINUTES SBSQ 42624 [place] [address] [facility] [facility]/DAY DO INC 35 MINUTES INITIAL 39787 [place] [address] [facility] [place] [facility]/DAY DO INC 70 MINUTES RADIOLOGI 27620 [place] ALL C 6 MEDICAL EXAMINATI IMAGING ON [place] [address] [place] ALL HEAD/BRAI 6 MEDICAL N W/O IMAGING CONTRAST ASS [facility] 62847 DRUZE DELA CRUZ DISCHARGE 6 HEALTH [place] DAY MEDICAL MANAGEMEN GROUP T > 30 MIN NONEMERG A0120 FEDERATED FEDERATED TRNSPRT: 6 MINI-BUS TRANSPORT TRANSPORT [facility] SYS SBSQ 40119 [place] [address] HEALTH CARE/DAY MEDICAL 35 GROUP MINUTES DUP-SCAN 17129 DRUZE SHI XTR VEINS 6 HEALTH [facility] [place] GROUP L/LIMITED STUDY RADEX HIP 15369 [facility] 6 RADIOLOGY [facility] [place] L WITH PELVIS 2-3 VIEWS SBSQ 19122 [place] [address] HEALTH CARE/DAY MEDICAL 35 GROUP MINUTES SBSQ 24766 [place] [address] HEALTH CARE/DAY MEDICAL 25 GROUP MINUTES SBSQ [address] CARE/DAY MEDICAL 15 GROUP MINUTES INITIAL [address]253 [place] [address] HEALTH [facility] CARE/DAY MEDICAL 70 GROUP MINUTES DUPLEX 40082 BONNIE GILLIS SCAN 6 [facility] EXTRACRAN MEDICAL IAL ART GROUP COMPL BI STUDY SBSQ 75211 [place] [address] HEALTH CARE/DAY MEDICAL 35 GROUP MINUTES ECHO 46244 BONNIE GILLIS TTHRC R-T 6 [facility] 2D MEDICAL W/WOM-MOD GROUP E COMPL SPEC&COLR D ECG 15471 [facility] ROUTINE 6 EMERGENCY ECG PHYS PSC W/LEAST 12 LDS I&R ONLY CRITICAL 47818 [facility] CARE 6 EMERGENCY ILL/INJUR PHYS PSC ED PATIENT INIT 30-[address] [place] [address] [facility] HEAD/BRAI 6 RADIOLOGY RADIOLOGY N W/O ASSOC ASSOC CONTRAST MATERIAL MRI BRAIN 43728 [facility] BRAIN 6 RADIOLOGY RADIOLOGY STEM W/O ASSOC ASSOC W/CONTRAS T MATERIAL FOR DIAB A5512 [place] ONLY MX 6 MEDICAL MEDICAL DNSITY SUPPLY SUPPLY INSRT DIR 9158 [email or web address] FORMD PRFAB EA DIAB ONLY A5500 [place] FIT CSTM 6 MEDICAL MEDICAL PREP&SPL SUPPLY 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 DNSITY INSRT OPHTH 75656 SCIFRES SCIFRES MEDICAL 6 ANG ANG XM&EVAL COMPRE NEW PT 1/> VST NONEMERG A0120 FEDERATED FEDERATED TRNSPRT: 6 MINI-BUS TRANSPORT TRANSPORT MTN ATION SER ATION SER AREA/OTH SYS GENERAL 09291 COMBINED COMBINED HEALTH 6 PHYSIC[place] [address] [place] ANGIOGRAP 5 MEDICAL FLA HY HEAD SERV W/CONTRAS FOUNDAT[place] T/[place] [address] [place] ANGIOGRAP 5 MEDICAL FLA HY NECK SERV W/CONTRAS FOUNDATIO T/NONCONT N RAST AMBULANCE A0428 [facility] MER[facility] SERVICE 5 AMBULANCE AMBULANCE BLS SERV ALLIGATOR SHEAR OPERATOR SERV ALLIGATOR SHEAR OPERATOR NONEMERGE R R NCY TRANSPORT ECG 93247 [place] LICO JENIFFER ROUTINE 5 MEDICAL ECG SERV W/LEAST FOUNDATIO 12 LDS N I&R ONLY DEBRIDEME 51852 JUSTINE HARRIS NT NAIL 5 D FOOT & DEN ANY ANKLE METHOD CENT 6/> NONEMERG A0120 [facility] [employer] TRNSPRT: 5 TRANSIT MINI-BUS ENTERPRIS [facility] ES AREA/OTH SYS GROUND A0425 [facility] MILEAGE 5 EMS EMS PER STATUTE MILE ECG 38292 EMERGENCY DUKES JENNIFER ROUTINE 5 COVERAGE ECG W/LEAST CORPORATI 12 LDS I&R ONLY OBSERVATI 77214 [facility] HUSSEIN COR ON/INPATI 5 [facility] S CARE 40 MINUTES AMB A0427 [facility] SERVICE 5 EMS EMS ALS EMERGENCY TRANSPORT LEVEL 1 AMBULANCE A0429 [facility] SERVICE 5 EMS EMS BLS EMERGENCY TRANSPORT GROUND A0425 [facility] MILEAGE 5 EMS EMS PER STATUTE MILE NONEMERG A0120 [employer] [employer] TRNSPRT: 5 [facility]IT [facility] AREA/OT SYS SBSQ [address] 35 PHYSICIA MINUTES SBSQ [address] 35 PHYSICIA MINUTES SBSQ [address] 35 PHYSICIA MINUTES SBSQ [address] 35 PHYSICIA MINUTES SBSQ [address] 35 PHYSICIA MINUTES RADIOLOGI 50231 CNTRL MALLY Tyler 5 RADIOLOGY LD IV ALL EXAMINATI ON CHEST SINGLE VIEW FRONTAL RADIOLOGI 22139 IZABELA Tyler 5 JENNIFER EXAMINATI RADIOLOGY ON CHEST ASSOC SINGLE VIEW FRONTAL GROUND A0425 [facility] MILEAGE 5 FIRE/EMS FIRE/EMS PER STATUTE MILE AMB A0427 [facility]/EMS FIRE/EMS ALS EMERGENCY TRANSPORT LEVEL 1 SBSQ 27342 [facility] 5 AND [place] CARE/DAY ELECTRO 35 SPECIALIS MINUTES RADIOLOGI 04276 IZABELA BAKER YLN C 5 EXAMINATI RADIOLOGY ON CHEST ASSOC SINGLE VIEW FRONTAL SBSQ 64981 [facility] 5 AND [place] CARE/DAY ELECTRO 35 SPECIALIS MINUTES RADIOLOGI 59682 IZABELA BAKER LYN C 5 EXAMINATI RADIOLOGY ON CHEST ASSOC SINGLE VIEW FRONTAL INITIAL 44789 [facility] 5 JR CLI JR CLI CARE/DAY 30 MINUTES INITIAL 19013 [facility] 5 JR CLI JR CLI CARE/DAY 50 MINUTES SBSQ 96722 [facility] 5 HEART CARE/DAY CORPORATI 25 ON MINUTES RADIOLOGI 27331 IZABELA MORENO 5 JENNIFER EXAMINATI RADIOLOGY ON CHEST ASSOC SINGLE VIEW FRONTAL INITIAL 14609 [facility] 5 JR CLI JR CLI CARE/DAY 70 MINUTES SBSQ 59278 [facility] 5 HEART CARE/DAY CORPORATI 25 ON MINUTES SBSQ 90145 [facility] 5 HEART CARE/DAY CORPORATI 25 ON MINUTES RADIOLOGI 75422 IZABELA Tyler 5 JENNIFER EXAMINATI RADIOLOGY ON CHEST ASSOC SINGLE VIEW FRONTAL SBSQ 68484 [facility] 5 HEART CARE/DAY CORPORATI 25 ON MINUTES SBSQ 44031 [facility] 5 HEART CARE/DAY CORPORATI 25 ON MINUTES RADIOLOGI 28748 IZABELA Tyler 5 JENNIFER EXAMINATI RADIOLOGY ON [place] [address] IZABELA CORCORAN HEAD/BRAI 5 E MAYNOR N W/O RADIOLOGY CONTRAST ASSOC MATERIAL RADEX 34806 IZABELA SHEA ABDOMEN 1 5 RABIA RADIOLOGY ANTEROPOS ASSOC TERIOR VIEW RADIOLOGI 92769 [facility] JOSH C 5 JENNIFER EXAMINATI RADIOLOGY ON CHEST ASSOC SINGLE VIEW FRONTAL NONEMERGE A0100 [facility] 5 TRANSIT HEALTH TRANSPORT ENTERPRIS MANAGEMEN ATION; ES T, TAXI GROUND A0425 [facility] MILEAGE 5 [place] [address] IZABELA JOSH RETROPERI 5 JENNIFER TONEAL RADIOLOGY REAL TIME ASSOC W/IMAGE COMPLETE ECHO 98988 [facility] TTH[facility] R-T 5 HEART 2D CORPORATI W/WOM-MOD ON E COMPL SPEC&COLR D INITIAL 75242 [facility] 5 HEART CARE/DAY CORPORATI 70 ON MINUTES AMB A0431 [facility] 5 MEDICAL MEDICAL CONVNTION AIR SRVC TRANSPORT 1 [facility] A0436 [facility] PHI AIR WING AIR 5 MEDICAL MEDICAL MILEAGE PER STATUTE MILE AMB A0427 [facility] SERVICE 5 EMS EMS ALS EMERGENCY TRANSPORT LEVEL 1 [place] 3897 [facility] VENOUS 5 [place] CATHETER D D PLACEMENT REGIONAL REGIONAL WITH HOS HOS GUIDANCE CONT 9672 [facility] INVASIVE 5 [place] MECH VENT D D 96 REGIONAL REGIONAL CONSECUTI HOS HOS VE HRS/MORE INSERTION 9604 [facility] OF 5 [place] ENDOTRACH D D EAL [facility]IONAL REGIONAL HOS HOS NONEMERGE A0100 [facility] 5 TRANSIT HEALTH TRANSPORT ENTERPRIS MANAGEMEN ATION; ES T, TAXI NONEMERGE A0100 [facility] 5 TRANSIT HEALTH TRANSPORT ENTERPRIS MANAGEMEN ATION; ES T, TAXI NONEMERGE A0100 [facility] 5 TRANSIT HEALTH TRANSPORT ENTERPRIS MANAGEMEN ATION; ES T, TAXI NONEMERGE A0100 [facility] 5 TRANSIT HEALTH TRANSPORT ENTERPRIS MANAGEMEN ATION; ES T, TAXI NONEMERGE A0100 [facility] 5 TRANSIT HEALTH TRANSPORT ENTERPRIS MANAGEMEN ATION; ES T, TAXI NONEMERGE A0100 [facility] [place] 5 TRANSIT HEALTH TRANSPORT ENTERPRIS MANAGEMEN ATION; ES T, TAXI NONEMERGE A0100 [facility] 5 TRANSIT HEALTH TRANSPORT ENTERPRIS MANAGEMEN ATION; ES T, TAXI NONEMERGE A0100 [facility] 5 TRANSIT HEALTH TRANSPORT ENTERPRIS MANAGEMEN ATION; ES T, TAXI NONEMERGE A0100 [facility] 5 TRANSIT HEALTH TRANSPORT ENTERPRIS MANAGEMEN ATION; ES T, [facility] S5108 [facility] 5 [facility] D AREA D AREA CARE AGENCY AGENCY CLIENT PER 15 MIN NONEMERGE A0100 [facility] 5 TRANSIT HEALTH TRANSPORT ENTERPRIS MANAGEMEN ATION; ES T, TAXI NONEMERGE A0100 [facility] 5 TRANSIT HEALTH TRANSPORT ENTERPRIS MANAGEMEN ATION; ES T, TAXI NON-INVAS 59073 [facility] [place] TIKA 5 D FOOT & DEN PHYSIOLOG ANKLE IC STUDY CENT EXTREMITY 3 LEVLS XTRNL ECG 91512 [place] [facility] JAY JAY & 48 HR 5 CARDIOLOG RECORD Y SCAN STOR W/R&I NONEMERGE A0100 [facility] 5 TRANSIT HEALTH TRANSPORT ENTERPRIS MANAGEMEN ATION; ES T, TAXI NONEMERGE A0100 [facility] 5 TRANSIT HEALTH TRANSPORT ENTERPRIS MANAGEMEN ATION; ES T, TAXI NONEMERGE A0100 [facility] 5 TRANSIT HEALTH TRANSPORT ENTERPRIS MANAGEMEN ATION; ES T, TAXI NONEMERGE A0100 [facility] 5 TRANSIT HEALTH TRANSPORT ENTERPRIS MANAGEMEN ATION; ES T, [facility] S5108 [facility] 5 [facility] ARE[facility] D AREA CARE AGENCY AGENCY CLIENT PER 15 MIN NONEMERGE A0100 [facility] 5 TRANSIT HEALTH TRANSPORT ENTERPRIS MANAGEMEN ATION; ES T, TAXI NONEMERGE A0100 [facility] 5 TRANSIT HEALTH TRANSPORT ENTERPRIS MANAGEMEN ATION; ES T, TAXI NONEMERGE A0100 [facility] 5 TRANSIT HEALTH TRANSPORT ENTERPRIS MANAGEMEN ATION; ES T, TAXI NONEMERGE A0100 [facility] 5 TRANSIT HEALTH TRANSPORT ENTERPRIS MANAGEMEN ATION; ES T, [facility] HOME CARE S5108 [facility] TRAINING 5 [facility] AREA D AREA CARE AGENCY AGENCY CLIENT PER 15 MIN HOME CARE S5108 [facility] TRAINING 5 [facility] D AREA D AREA CARE AGENCY AGENCY CLIENT PER 15 MIN ECG 80091 [facility] ROUTINE 5 [place] ECG D REG W/LEAST HOSPITAL 12 LDS I&R ONLY ECG 40890 [facility] ROUTINE 5 JACQUIE SEA ECG EMERGENCY W/LEAST PHYS 12 LDS I&R ONLY CRITICAL 94407 [facility] CARE 5 JACQUIE SEA ILL/INJUR EMERGENCY ED PHYS PATIENT INIT 30-74 MIN GROUND A0425 [facility] MILEAGE 5 EMS EMS PER STATUTE MILE NONEMERGE A0100 [facility] 5 TRANSIT HEALTH TRANSPORT ENTERPRIS MANAGEMEN ATION; ES T, TAXI AMB A0427 [facility] SERVICE 5 EMS EMS ALS EMERGENCY TRANSPORT LEVEL 1 NONEMERGE A0100 [facility] 5 TRANSIT HEALTH TRANSPORT ENTERPRIS MANAGEMEN ATION; ES T, TAXI HOME CARE S5108 [facility] TRAINING 5 JUSTINE [facility] AREA D AREA CARE AGENCY AGENCY CLIENT PER 15 MIN NONEMERGE A0100 [facility] 5 TRANSIT HEALTH TRANSPORT ENTERPRIS MANAGEMEN ATION; ES T, TAXI NONEMERGE A0100 [facility] 5 TRANSIT HEALTH TRANSPORT ENTERPRIS MANAGEMEN ATION; ES T, TAXI NONEMERGE A0100 [facility] 5 TRANSIT HEALTH TRANSPORT ENTERPRIS MANAGEMEN ATION; ES T, TAXI NONEMERGE A0100 [facility] 5 TRANSIT HEALTH TRANSPORT ENTERPRIS MANAGEMEN ATION; ES T, TAXI NONEMERGE A0100 [facility] 5 TRANSIT HEALTH TRANSPORT ENTERPRIS MANAGEMEN ATION; ES T, TAXI NONEMERGE A0100 [facility] 5 [facility]ALTH TRANSPORT ENTERPRIS MANAGEMEN ATION; ES T, TAXI NONEMERGE A0100 [facility] 5 TRANS[facility] TRANSPORT ENTERPRIS MANAGEMEN ATION; ES T, [facility] NONEMERGE A0100 [facility] [place] [facility] TRANSPORT ENTERPRIS MANAGEMEN ATION; ES T, [facility]I DEBRIDEME 25200 JUSTINE HARRIS NT NAIL 5 D FOOT & DEN ANY ANKLE METHOD CENT 6/> NONEMERGE A0100 [facility] [place] 5 TRANSIT HEALTH TRANSPORT ENTERPRIS MANAGEMEN ATION; ES T, [facility] HOME CARE S5108 [facility] TRAINING 5 JUSTINE FLETCHER HOME D AREA D AREA CARE AGENCY AGENCY CLIENT PER 15 MIN NONEMERGE A0100 [facility] [place], [facility] 5 TRANSIT HEALTH TRANSPORT ENTERPRIS MANAGEMEN ATION; ES T, TAXI NONEMERGE A0100 [facility] [place], [facility] 5 TRANSIT HEALTH TRANSPORT ENTERPRIS MANAGEMEN ATION; ES T, TAXI ECG 69436 [facility] ROUTINE 5 CARDIOLOG ECG Y W/LEAST 12 LDS W/I&R GROUND A0425 [facility] MILEAGE 5 FIRE/EMS FIRE/EMS PER STATUTE MILE RADIOLOGI 99744 [facility] SHABBIR C 5 RABIA EXAMINATI RADIOLOGY ON CHEST ASSOC SINGLE VIEW FRONTAL AMB A0427 [facility] SERVICE 5 FIRE/EMS FIRE/EMS ALS EMERGENCY TRANSPORT LEVEL 1 AMBULANCE A0429 [facility] SERVICE 5 [place] [address] [facility] SKE[facility] HEAD/BRAI 5 IMAGING & PAUL N W/O CONTRAST INTERVENT MATERIAL I RADEX 18719 [facility] MAY JENNIFER SPINE 5 IMAGING & LUMBOSACR AL INTERVENT MINIMUM 4 I VIEWS RADIOLOGI 52732 [facility] MAY JENNIFER C 5 IMAGING & EXAMINATI ON ANKLE INTERVENT 2 VIEWS I ECG 42046 EMERGENCY EARL ROUTINE 5 COVERAGE STA ECG W/LEAST CORPORATI 12 LDS I&R ONLY GROUND A0425 [facility] MILEAGE 5 EMS EMS PER STATUTE MILE NONEMERGE A0100 [facility] [place], [facility] 5 TRANSIT HEALTH TRANSPORT ENTERPRIS MANAGEMEN ATION; ES T, [facility]I ANKLE L1902 [facility]; DARIAN/TAMMIE BROWN PREFAB OFF-THE-S HELF NONEMERGE A0100 [facility] [place] 5 TRANS[facility] HEALTH TRANSPORT ENTERPRIS MANAGEMEN ATION; ES T, TAXI THER 24967 [facility] PROPH/DX 5 HOSP [facility] NJX IV PUSH SINGLE/1S T SBST/DRUG COMPREHEN 38662 [facility] SIVE 5 HOSP [facility] METABOLIC PANEL BLOOD 57700 [facility] COUNT 5 HOSP [facility] COMPLETE AUTO&AUTO DIFRNTL WBC COLLECTIO 08008 [facility] N VENOUS 5 HOSP [facility] [place] [address] [facility] INFUSION 5 HOSP [facility] HYDRATION INITIAL 31 MIN-1 HOUR INJECTION J2405 [facility] [address] [facility] INC ONDANSETR ON HCL PER 1 MG BLD GLU A4253 [facility] TEST/REAG 5 MEDICAL MEDICAL T STRIPS HOME BLD GLU MON-50 LANCETS A4259 [facility] PER BOX 5 [facility]ICAL [facility]ICAL OF 100 NORMAL A4256 [facility] LOW AND 5 [facility]ICAL [facility]ICAL HIGH CALIBRATO R SOLUTION/ CHIPS NONEMERGE A0100 [facility] 5 [facility] TRANSPORT ENTERPRIS MANAGEMEN ATION; ES T, [facility] HOME CARE S5108 [facility] TRAINING [address] [facility] HOME D AREA D AREA CARE AGENCY AGENCY CLIENT PER 15 MIN NONEMERGE A0100 [facility] 4 [facility] TRANSPORT ENTERPRIS MANAGEMEN ATION; ES T, [facility] ECHO 58619 [facility] [place] [facility] R-T 4 CARDIOLOG 2D Y W/WOM-MOD E COMPL SPEC&COLR D NONEMERGE A0100 [facility] 4 [facility] HEALTH TRANSPORT ENTERPRIS MANAGEMEN ATION; ES T, TAXI NONEMERGE A0100 [facility] [place], [facility] 4 TRANSIT HEALTH TRANSPORT ENTERPRIS MANAGEMEN ATION; ES T, TAXI NONEMERGE A0100 [facility] 4 TRANSIT HEALTH TRANSPORT ENTERPRIS MANAGEMEN ATION; ES T, TAXI NONEMERGE A0100 [facility] 4 TRANSIT HEALTH TRANSPORT ENTERPRIS MANAGEMEN ATION; ES T, TAXI NONEMERGE A0100 [facility] 4 TRANSIT HEALTH TRANSPORT ENTERPRIS MANAGEMEN ATION; ES T, TAXI NONEMERGE A0100 [facility] 4 TR[facility] HEALTH TRANSPORT ENTERPRIS MANAGEMEN ATION; ES T, TAXI DISPBL [id number] PERSONAL PERSONAL LINER/JARED 4 TOUCH TOUCH ELD/GUARD HOME JAIL CARE /PAD/UNDG OF OF RMNT INCONT EA NONEMERGE A0100 [facility] 4 TR[facility] HEALTH TRANSPORT ENTERPRIS MANAGEMEN ATION; ES T, TAXI NONEMERGE A0100 [facility] 4 [facility] HEALTH TRANSPORT ENTERPRIS MANAGEMEN ATION; ES T, [facility] HOME [facility] S[address] AREA D AREA CARE AGENCY AGENCY CLIENT PER 15 MIN NONEMERGE A0100 [facility] 4 TR[facility] HEALTH TRANSPORT ENTERPRIS MANAGEMEN ATION; ES T, TAXI NONEMERGE A0100 [facility] 4 TRANSIT HEALTH TRANSPORT ENTERPRIS MANAGEMEN ATION; ES T, TAXI NONEMERGE A0100 [facility] 4 TRANSIT HEALTH TRANSPORT ENTERPRIS MANAGEMEN ATION; ES T, TAXI NONEMERGE A0100 [facility] 4 TRANSIT HEALTH TRANSPORT ENTERPRIS MANAGEMEN ATION; ES T, TAXI NONEMERGE A0100 [facility] 4 TRANSIT HEALTH TRANSPORT ENTERPRIS MANAGEMEN ATION; ES T, TAXI NONEMERGE A0100 [facility] [place] 4 TR[facility] HEALTH TRANSPORT ENTERPRIS MANAGEMEN ATION; ES T, [facility] S[address] AREA D AREA CARE AGENCY AGENCY CLIENT PER 15 MIN NONEMERGE A0100 [facility] [place] 4 TRANS[facility] HEALTH TRANSPORT ENTERPRIS MANAGEMEN ATION; ES T, TAXI NONEMERGE A0100 [facility] [place], [facility] 4 TRANSIT HEALTH TRANSPORT ENTERPRIS MANAGEMEN ATION; ES T, TAXI NONEMERGE A0100 [facility] [place], [facility] 4 TRANSIT HEALTH TRANSPORT ENTERPRIS MANAGEMEN ATION; ES T, TAXI NONEMERGE A0100 [facility] [place], [facility] 4 TRANSIT HEALTH TRANSPORT ENTERPRIS MANAGEMEN ATION; ES T, TAXI NONEMERGE A0100 [facility] [place], [facility] 4 TRANSIT HEALTH TRANSPORT ENTERPRIS MANAGEMEN ATION; ES T, TAXI NONEMERGE A0100 [facility] [place] 4 TRANS[facility] HEALTH TRANSPORT ENTERPRIS MANAGEMEN ATION; ES T, TAXI NONEMERGE A0100 [facility] [place], [facility] 4 TRANS[facility] HEALTH TRANSPORT ENTERPRIS MANAGEMEN ATION; ES T, TAXI RADEX 00806 [place] 4 O MEDICAL JUAN LYNNA L 2 VIEWS ASSOCIATE NONEMERGE A0100 [facility] [place], [facility] 4 TRANS[facility] HEALTH TRANSPORT ENTERPRIS MANAGEMEN ATION; ES T, [facility] S5108 [facility] 4 [place] [facility] D AREA D AREA CARE AGENCY AGENCY CLIENT PER 15 MIN NONEMERGE A0100 [facility] [place], [facility] 4 TRANS[facility] HEALTH TRANSPORT ENTERPRIS MANAGEMEN ATION; ES T, TAXI DEBRIDEME 05819 JUSTINE HARRIS NT NAIL 4 D FOOT & DEN ANY ANKLE METHOD CENT 6/> NONEMERGE A0100 [facility] [place], [facility] 4 TRANSIT HEALTH TRANSPORT ENTERPRIS MANAGEMEN ATION; ES T, TAXI NONEMERGE A0100 [facility] [place], [facility] 4 TRANSIT HEALTH TRANSPORT ENTERPRIS MANAGEMEN ATION; ES T, TAXI NONEMERGE A0100 [facility] [place], [facility] 4 TRANSIT HEALTH TRANSPORT ENTERPRIS MANAGEMEN ATION; ES T, TAXI NONEMERGE A0100 [facility] [place], [facility] 4 TRANSIT HEALTH TRANSPORT ENTERPRIS MANAGEMEN ATION; ES T, TAXI NONEMERGE A0100 [facility] [place], [facility] 4 TRANSIT HEALTH TRANSPORT ENTERPRIS MANAGEMEN ATION; ES T, TAXI O2 CONC 1 E1390 [facility] 4 [facility] MEDICAL 85%/>02 LLC; LLC; [facility] AT [facility] FLW RATE NONEMERGE A0100 [facility] 4 TRANS[facility] HEALTH TRANSPORT ENTERPRIS MANAGEMEN ATION; ES T, TAXI NONEMERGE A0100 [facility] [place] 4 TRANSIT HEALTH TRANSPORT ENTERPRIS MANAGEMEN ATION; ES T, TAXI NONEMERGE A0100 [facility] 4 TRANSIT HEALTH TRANSPORT ENTERPRIS MANAGEMEN ATION; ES T, [facility] S5108 [facility] [address] [facility] HOME D AREA D AREA CARE AGENCY AGENCY CLIENT PER 15 MIN NONEMERGE A0100 [facility] [place], [facility] 4 TRANSIT HEALTH TRANSPORT ENTERPRIS MANAGEMEN ATION; ES T, TAXI NONEMERGE A0100 [facility] [place], [facility] 4 TRANSIT HEALTH TRANSPORT ENTERPRIS MANAGEMEN ATION; ES T, TAXI NONEMERGE A0100 [facility] [place], [facility] 4 TRANSIT HEALTH TRANSPORT ENTERPRIS MANAGEMEN ATION; ES T, TAXI NONEMERGE A0100 [facility] [place], [facility] 4 TRANSIT HEALTH TRANSPORT ENTERPRIS MANAGEMEN ATION; ES T, TAXI NONEMERGE A0100 [facility] [place], [facility] 4 TRANSIT HEALTH TRANSPORT ENTERPRIS MANAGEMEN ATION; ES T, TAXI NONEMERGE A0100 [facility] [place] 4 TRANSIT HEALTH TRANSPORT ENTERPRIS MANAGEMEN ATION; ES T, TAXI NONEMERGE A0100 [facility] [place], [facility] 4 TRANSIT HEALTH TRANSPORT ENTERPRIS MANAGEMEN ATION; ES T, TAXI NONEMERGE A0100 [facility] [place], [facility] 4 TRANSIT HEALTH TRANSPORT ENTERPRIS MANAGEMEN ATION; ES T, TAXI NONEMERGE A0100 [facility] [place], [facility] 4 TRANSIT HEALTH TRANSPORT ENTERPRIS MANAGEMEN ATION; ES T, TAXI NONEMERGE A0100 [facility] [place], [facility] 4 TRANSIT HEALTH TRANSPORT ENTERPRIS MANAGEMEN ATION; ES T, TAXI NONEMERGE A0100 [facility] [place], [facility] 4 TRANSIT HEALTH TRANSPORT ENTERPRIS MANAGEMEN ATION; ES T, TAXI NONEMERGE A0100 [facility] [place], [facility] 4 TRANSIT HEALTH TRANSPORT ENTERPRIS MANAGEMEN ATION; ES T, [facility] HOME [facility]ARE S5108 [facility] TRAINING [address] [facility] HOME D AREA D AREA CARE AGENCY AGENCY CLIENT PER 15 MIN NONEMERGE A0100 [facility] 4 TR[facility] HEALTH TRANSPORT ENTERPRIS MANAGEMEN ATION; ES T, TAXI NONEMERGE A0100 [facility] [place], [facility] 4 TRANSIT HEALTH TRANSPORT ENTERPRIS MANAGEMEN ATION; ES T, TAXI NONEMERGE A0100 [facility] [place], [facility] 4 TRANSIT HEALTH TRANSPORT ENTERPRIS MANAGEMEN ATION; ES T, TAXI NONEMERGE A0100 [facility] [place], [facility] 4 TRANSIT HEALTH TRANSPORT ENTERPRIS MANAGEMEN ATION; ES T, TAXI NONEMERGE A0100 [facility] [place], [facility] 4 TRANSIT HEALTH TRANSPORT ENTERPRIS MANAGEMEN ATION; ES T, TAXI O2 CONC 1 E1390 [facility] 4 MEDICAL MEDICAL 85%/>02 LLC; [facility]; [facility]C AT [facility] FLW RATE COMPRE [id number] S[place]A FIGUEROA AUDIOMETR 4 Y THRESHOLD EVAL SP RECOGNIJ TYMPANOME 24349 S[place]A DOOLEY HENRY TRY 4 NONEMERGE A0100 [facility] [place], [facility] 4 TRANSIT HEALTH TRANSPORT ENTERPRIS MANAGEMEN ATION; ES T, TAXI NONEMERGE A0100 [facility] [place], [facility] 4 TRANSIT HEALTH TRANSPORT ENTERPRIS MANAGEMEN ATION; ES T, TAXI NONEMERGE A0100 [facility] [place], [facility] 4 TRANSIT HEALTH TRANSPORT ENTERPRIS MANAGEMEN ATION; ES T, TAXI NONEMERGE A0100 [facility] [place], [facility] 4 TRANSIT HEALTH TRANSPORT ENTERPRIS MANAGEMEN ATION; ES T, TAXI REPL LIU A4233 [facility] AR[facility] ALKALINE 4 MEDICAL MEDICAL NOT J CELL MERON BG MON OWND PT BLD GLU A4253 [facility] AR[facility] TEST/REAG 4 MEDICAL MEDICAL T STRIPS HOME BLD GLU MON-50 NORMAL A4256 [facility] AR[facility]IVA LOW AND 4 MEDICAL MEDICAL HIGH CALIBRATO R SOLUTION/ CHIPS LANCETS A4259 ARRIVA ARRIVA PER BOX 4 MEDICAL MEDICAL OF 100 SPRING-PO 10-02-201 A4258 [facility] AR[facility] WERED 4 MEDICAL METAL COATER FOR LANCET EACH NONEMERGE A0100 [facility] [place], [facility] 4 TRANSIT HEALTH TRANSPORT ENTERPRIS MANAGEMEN ATION; ES T, [facility] HOME C[facility] S5108 [facility] 4 [facility] D AREA D AREA CARE AGENCY AGENCY CLIENT PER 15 MIN NONEMERGE A0100 [facility] [place], [facility] 4 TRANSIT HEALTH TRANSPORT ENTERPRIS MANAGEMEN ATION; ES T, TAXI NONEMERGE A0100 [facility] [place], [facility] 4 TRANSIT HEALTH TRANSPORT ENTERPRIS MANAGEMEN ATION; ES T, TAXI NONEMERGE A0100 [facility] [place], [facility] 4 TRANSIT HEALTH TRANSPORT ENTERPRIS MANAGEMEN ATION; ES T, TAXI COMPREHEN 29747 [facility] SIVE 4 O MEDICAL O MEDICAL METABOLIC ASSOC LA ASSOC LA PANEL BLOOD 47618 [facility] COUNT 4 O MEDICAL O MEDICAL COMPLETE ASSOC LA ASSOC LA AUTO&AUTO DIFRNTL WBC COLLECTIO 22392 [facility] N VENOUS 4 O MEDICAL O MEDICAL BLOOD ASSOC LA ASSOC LA VENIPUNCT URE NONEMERGE A0100 [facility] [place], [facility] 4 TRANSIT HEALTH TRANSPORT ENTERPRIS MANAGEMEN ATION; ES T, TAXI NONEMERGE A0100 [facility] [place], [facility] 4 TRANSIT HEALTH TRANSPORT ENTERPRIS MANAGEMEN ATION; ES T, TAXI NONEMERGE A0100 [facility] [place], [facility] 4 TRANSIT HEALTH TRANSPORT ENTERPRIS MANAGEMEN ATION; ES T, TAXI NONEMERGE A0100 [facility] [place], [facility] 4 TRANSIT HEALTH TRANSPORT ENTERPRIS MANAGEMEN ATION; ES T, TAXI OBSERVATI 55468 MALLY MALCOMELLEIN ON CARE 4 MEDICAL AND DISCHARGE SERV FOUNDATIO MANAGEMEN N T ECG 72897 [place] CARLOS ENRIQUE CHI ROUTINE 4 MEDICAL ECG SERV W/LEAST FOUNDATIO 12 LDS N I&R ONLY RADIOLOGI 16141 [place] LAURA C 4 MEDICAL AYA MAR EXAMINATI SERV ON CHEST FOUNDATIO SINGLE N VIEW FRONTAL ECHO 94005 MALLY WOODSON [facility] R-T 4 MEDICAL ALI 2D SERV W/WOM-MOD FOUNDATIO E COMPL N SPEC&COLR D INITIAL 64426 [facility] OBSERV[facility] 4 JACQUIE ON PHYSICIAN CARE/DAY SERVI 70 MINUTES NONEMERGE A0100 [facility] [place] 4 TRANSIT HEALTH TRANSPORT ENTERPRIS MANAGEMEN ATION; ES T, TAXI GROUND A0425 [facility] MILE[facility] [address] [place] [address] PREMIER SUSIE MAR HEAD/BRAI 4 IMAGING & N W/O CONTRAST INTERVENT MATERIAL I AMB A0427 [facility] SERVICE 4 EMS EMS ALS EMERGENCY TRANSPORT LEVEL 1 DISPBL T4535 PERSONAL PERSONAL LINER/JARED 4 TOUCH TOUCH ELD/GUARD HOME JAIL CARE /PAD/UNDG OF OF RMNT INCONT EA NONEMERGE A0100 [facility] [place] 4 TRANSIT HEALTH TRANSPORT ENTERPRIS MANAGEMEN ATION; ES T, TAXI NONEMERGE A0100 [facility] [place], [facility] 4 TRANSIT HEALTH TRANSPORT ENTERPRIS MANAGEMEN ATION; ES T, [facility] HOME [facility] S5108 [facility] 4 [facility] D AREA D AREA CARE AGENCY AGENCY CLIENT PER 15 MIN NONEMERGE A0100 [facility] [place], [facility] 4 TRANSIT HEALTH TRANSPORT ENTERPRIS MANAGEMEN ATION; ES T, TAXI NONEMERGE A0100 [facility] 4 TRANSIT HEALTH TRANSPORT ENTERPRIS MANAGEMEN ATION; ES T, TAXI NONEMERGE A0100 [facility] 4 TRANSIT HEALTH TRANSPORT ENTERPRIS MANAGEMEN ATION; ES T, TAXI NONEMERGE A0100 [facility] 4 TRANSIT HEALTH TRANSPORT ENTERPRIS MANAGEMEN ATION; ES T, TAXI NONEMERGE A0100 [facility] [place] 4 TRANSIT HEALTH TRANSPORT ENTERPRIS MANAGEMEN ATION; ES T, TAXI O2 CONC 1 E1390 [facility] 4 MEDICAL MEDICAL 85%/>02 LLC; LLC; [facility] AT [facility] FLW RATE NONEMERGE A0100 [facility] [place], [facility] 4 TRANSIT HEALTH TRANSPORT ENTERPRIS MANAGEMEN ATION; ES T, TAXI NONEMERGE A0100 [facility] 4 TRANSIT HEALTH TRANSPORT ENTERPRIS MANAGEMEN ATION; ES T, TAXI NONEMERGE A0100 [facility] [place] 4 TRANSIT HEALTH TRANSPORT ENTERPRIS MANAGEMEN ATION; ES T, TAXI NONEMERGE A0100 [facility] [place] 4 TRANSIT HEALTH TRANSPORT ENTERPRIS MANAGEMEN ATION; ES T, TAXI NONEMERGE A0100 [facility] [place], [facility] 4 TRANSIT HEALTH TRANSPORT ENTERPRIS MANAGEMEN ATION; ES T, [facility] HOME CARE S5108 [facility] 4 [facility] D [facility] D AREA CARE AGENCY AGENCY CLIENT PER 15 MIN NONEMERGE A0100 [facility] [place], [facility] 4 TRANSIT HEALTH TRANSPORT ENTERPRIS MANAGEMEN ATION; ES T, TAXI NONEMERGE A0100 [facility] [place] 4 TRANSIT HEALTH TRANSPORT ENTERPRIS MANAGEMEN ATION; ES T, TAXI NONEMERGE A0100 [facility] [place] 4 TRANSIT HEALTH TRANSPORT ENTERPRIS MANAGEMEN ATION; ES T, TAXI NONEMERGE A0100 [facility] [place] 4 TRANSIT HEALTH TRANSPORT ENTERPRIS MANAGEMEN ATION; ES T, TAXI DEBRIDEME 16470 JUSTINE JADWIN NT NAIL 4 D FOOT & DEN ANY ANKLE METHOD CENT 6/> NONEMERGE A0100 [facility] [place] 4 TRANSIT HEALTH TRANSPORT ENTERPRIS MANAGEMEN ATION; ES T, TAXI NONEMERGE A0100 [facility] [place] 4 TRANSIT HEALTH TRANSPORT ENTERPRIS MANAGEMEN ATION; ES T, TAXI NONEMERGE A0100 [facility] [place], [facility] 4 TRANSIT HEALTH TRANSPORT ENTERPRIS MANAGEMEN ATION; ES T, TAXI NONEMERGE A0100 [facility] [place] 4 TRANSIT HEALTH TRANSPORT ENTERPRIS MANAGEMEN ATION; ES T, TAXI NONEMERGE A0100 [facility] [place] 4 TRANSIT HEALTH TRANSPORT ENTERPRIS MANAGEMEN ATION; ES T, TAXI NONEMERGE A0100 [facility] [place] 4 TRANSIT HEALTH TRANSPORT ENTERPRIS MANAGEMEN ATION; ES T, [facility] HOME CARE S5108 [facility] TRAINING [address] [facility] HOME D AREA D AREA CARE AGENCY AGENCY CLIENT PER 15 MIN NONEMERGE A0100 [facility] 4 TRANSIT HEALTH TRANSPORT ENTERPRIS MANAGEMEN ATION; ES T, TAXI NONEMERGE A0100 [facility] 4 TRANSIT HEALTH TRANSPORT ENTERPRIS MANAGEMEN ATION; ES T, TAXI NONEMERGE A0100 [facility] 4 TRANSIT HEALTH TRANSPORT ENTERPRIS MANAGEMEN ATION; ES T, TAXI NONEMERGE A0100 [facility] 4 TRANSIT HEALTH TRANSPORT ENTERPRIS MANAGEMEN ATION; ES T, TAXI NONEMERGE A0100 [facility] 4 TRANSIT HEALTH TRANSPORT ENTERPRIS MANAGEMEN ATION; ES T, TAXI O2 CONC 1 E1390 [facility] 4 MEDICAL MEDICAL 85%/>02 LLC; LLC; [facility] AT [facility] FLW RATE NONEMERGE A0100 [facility] 4 TRANSIT HEALTH TRANSPORT ENTERPRIS MANAGEMEN ATION; ES T, TAXI NONEMERGE A0100 [facility] 4 TRANSIT HEALTH TRANSPORT ENTERPRIS MANAGEMEN ATION; ES T, TAXI NONEMERGE A0100 [facility] 4 TRANSIT HEALTH TRANSPORT ENTERPRIS MANAGEMEN ATION; ES T, TAXI NONEMERGE A0100 [facility] 4 TRANSIT HEALTH TRANSPORT ENTERPRIS MANAGEMEN ATION; ES T, TAXI NONEMERGE A0100 [facility] 4 TRANSIT HEALTH TRANSPORT ENTERPRIS MANAGEMEN ATION; ES T, [facility] HOME CARE S5108 [facility] TRAINING 4 [facility] D AREA CARE AGENCY AGENCY CLIENT PER 15 MIN NONEMERGE A0100 [facility] 4 TRANSIT HEALTH TRANSPORT ENTERPRIS MANAGEMEN ATION; ES T, TAXI NONEMERGE A0100 [facility] 4 TRANSIT HEALTH TRANSPORT ENTERPRIS MANAGEMEN ATION; ES T, TAXI NONEMERGE A0100 [facility] 4 TRANSIT HEALTH TRANSPORT ENTERPRIS MANAGEMEN ATION; ES T, TAXI NONEMERGE A0100 [facility] 4 TRANSIT HEALTH TRANSPORT ENTERPRIS MANAGEMEN ATION; ES T, TAXI NONEMERGE A0100 [facility] 4 TRANSIT HEALTH TRANSPORT ENTERPRIS MANAGEMEN ATION; ES T, TAXI NONEMERGE A0100 [facility] 4 TRANSIT HEALTH TRANSPORT ENTERPRIS MANAGEMEN ATION; ES T, TAXI NONEMERGE A0100 [facility] 4 TRANSIT HEALTH TRANSPORT ENTERPRIS MANAGEMEN ATION; ES T, TAXI NONEMERGE A0100 [facility] 4 TRANSIT HEALTH TRANSPORT ENTERPRIS MANAGEMEN ATION; ES T, TAXI NONEMERGE A0100 [facility] 4 TRANSIT HEALTH TRANSPORT ENTERPRIS MANAGEMEN ATION; ES T, TAXI NONEMERGE A0100 [facility] 4 TRANSIT HEALTH TRANSPORT ENTERPRIS MANAGEMEN ATION; ES T, TAXI NONEMERGE A0100 [facility] [place] 4 TRANSIT HEALTH TRANSPORT ENTERPRIS MANAGEMEN ATION; ES T, [facility] HOME CARE S5108 [facility] 4 [facility] D AREA D AREA CARE AGENCY AGENCY CLIENT PER 15 MIN NONEMERGE A0100 [facility] 4 TRANSIT HEALTH TRANSPORT ENTERPRIS MANAGEMEN ATION; ES T, TAXI NONEMERGE A0100 [facility] [place] 4 TRANSIT HEALTH TRANSPORT ENTERPRIS MANAGEMEN ATION; ES T, TAXI NONEMERGE A0100 [facility] [place] 4 TRANSIT HEALTH TRANSPORT ENTERPRIS MANAGEMEN ATION; ES T, TAXI NONEMERGE A0100 [facility] [place] 4 TRANSIT HEALTH TRANSPORT ENTERPRIS MANAGEMEN ATION; ES T, TAXI NONEMERGE A0100 [facility] [place] 4 TRANSIT HEALTH TRANSPORT ENTERPRIS MANAGEMEN ATION; ES T, TAXI O2 CONC 1 E1390 [facility] 4 MEDICAL MEDICAL 85%/>02 LLC; LLC; [facility]C AT [facility] FLW RATE NONEMERGE A0100 [facility] 4 TRANSIT HEALTH TRANSPORT ENTERPRIS MANAGEMEN ATION; ES T, TAXI NONEMERGE A0100 [facility] 4 TRANSIT HEALTH TRANSPORT ENTERPRIS MANAGEMEN ATION; ES T, TAXI NONEMERGE A0100 [facility] 4 TRANSIT HEALTH TRANSPORT ENTERPRIS MANAGEMEN ATION; ES T, TAXI NONEMERGE A0100 [facility] 4 TRANSIT HEALTH TRANSPORT ENTERPRIS MANAGEMEN ATION; ES T, TAXI NONEMERGE A0100 [facility] [place] 4 TRANSIT HEALTH TRANSPORT ENTERPRIS MANAGEMEN ATION; ES T, [facility] HOME CARE S5108 [facility] 4 [facility] AREA CARE AGENCY AGENCY CLIENT PER 15 MIN DISPBL [id number] PERSONAL PERSONAL LINER/JARED 4 TOUCH TOUCH ELD/GUARD HOME JAIL CARE /PAD/UNDG OF OF RMNT INCONT EA NONEMERGE A0100 [facility] [place] 4 [facility] ENTERPRIS MANAGEMEN ATION; ES T, TAXI NONEMERGE A0100 [facility] [place], [facility] 4 [facility] TRANSPORT ENTERPRIS MANAGEMEN ATION; ES T, TAXI NONEMERGE A0100 [facility] [place], [facility] 4 TR[facility] HEALTH TRANSPORT ENTERPRIS MANAGEMEN ATION; ES T, TAXI NONEMERGE A0100 [facility] 4 [facility] TRANSPORT ENTERPRIS MANAGEMEN ATION; ES T, TAXI NONEMERGE A0100 [facility] 4 [facility] HEALTH TRANSPORT ENTERPRIS MANAGEMEN ATION; ES T, TAXI NONEMERGE A0100 [facility] 4 [facility] HEALTH TRANSPORT ENTERPRIS MANAGEMEN ATION; ES T, TAXI NONEMERGE A0100 [facility] [place], [facility] 4 TR[facility] HEALTH TRANSPORT ENTERPRIS MANAGEMEN ATION; ES T, TAXI NONEMERGE A0100 [facility] [place], [facility] 4 TRANS[facility] HEALTH TRANSPORT ENTERPRIS MANAGEMEN ATION; ES T, TAXI NONEMERGE A0100 [facility] [place], [facility] 4 TR[facility] HEALTH TRANSPORT ENTERPRIS MANAGEMEN ATION; ES T, TAXI NONEMERGE A0100 [facility] [place], [facility] 4 [facility] TRANSPORT ENTERPRIS MANAGEMEN ATION; ES T, [facility] S5108 [facility] TRA[facility] 4 [facility] AREA CARE AGENCY AGENCY CLIENT PER 15 MIN NONEMERGE A0100 [facility] 4 [facility]SP[facility] ENTERPRIS MANAGEMEN ATION; ES T, TAXI SKIN TEST [id number] [facility] SIS DEPARTM DEPARTM INTRADERM AL NONEMERGE A0100 [facility] 4 [facility] ENTERPRIS MANAGEMEN ATION; ES T, TAXI NONEMERGE A0100 [facility] 4 [facility] TRANSPORT ENTERPRIS MANAGEMEN ATION; ES T, TAXI NONEMERGE A0100 [facility] 4 [facility] TRANSPORT ENTERPRIS MANAGEMEN ATION; ES T, TAXI NONEMERGE A0100 [facility] 4 [facility] TRANSPORT ENTERPRIS MANAGEMEN ATION; ES T, TAXI NONEMERGE A0100 [facility] 4 [facility] TRANSPORT ENTERPRIS MANAGEMEN ATION; ES T, TAXI O2 CONC 1 E1390 [facility] 4 MEDICAL MEDICAL 85%/>02 LLC; LLC; CONC AT [facility] FLW RATE NONEMERGE A0100 [facility] 4 [facility]SP[facility] ENTERPRIS MANAGEMEN ATION; ES T, TAXI NONEMERGE A0100 [facility] 4 [facility] HE[facility] TRANSPORT ENTERPRIS MANAGEMEN ATION; ES T, TAXI NONEMERGE A0100 [facility] 4 [facility] TRANSPORT ENTERPRIS MANAGEMEN ATION; ES T, [facility] S5108 [facility] [address] [facility] HOME D AREA D AREA CARE AGENCY AGENCY CLIENT PER 15 MIN NONEMERGE A0100 [facility] 4 [facility]SP[facility] ENTERPRIS MANAGEMEN ATION; ES T, TAXI NONEMERGE A0100 [facility] 4 [facility] TRANSPORT ENTERPRIS MANAGEMEN ATION; ES T, TAXI NONEMERGE A0100 [facility] 4 [facility] TRANSPORT ENTERPRIS MANAGEMEN ATION; ES T, TAXI NONEMERGE A0100 [facility] 4 [facility]SP[facility] ENTERPRIS MANAGEMEN ATION; ES T, TAXI LANCETS A4259 ARRIVA ARRIVA PER BOX 4 MEDICAL MEDICAL OF 100 NORMAL A4256 ARRIVA ARRIVA LOW AND 4 MEDICAL MEDICAL HIGH CALIBRATO R SOLUTION/ CHIPS BLD GLU A4253 ARRIVA ARRIVA TEST/REAG 4 MEDICAL MEDICAL T STRIPS HOME BLD GLU MON-50 NONEMERGE A0100 [facility] [facility]ALTH TRANSPORT ENTERPRIS MANAGEMEN ATION; ES T, TAXI NONEMERGE A0100 [facility] [place] 4 [facility] TRANSPORT ENTERPRIS MANAGEMEN ATION; ES T, TAXI NONEMERGE A0100 [facility] [place], [facility] 4 [facility] HEALTH TRANSPORT ENTERPRIS MANAGEMEN ATION; ES T, TAXI NONEMERGE A0100 [facility], [place] 4 TRANS[facility] HEALTH TRANSPORT ENTERPRIS MANAGEMEN ATION; ES T, TAXI NONEMERGE A0100 [facility] [place], [facility] 4 [facility] HEALTH TRANSPORT ENTERPRIS MANAGEMEN ATION; ES T, TAXI NONEMERGE A0100 [facility] [place], [facility] 4 [facility] TRANSPORT ENTERPRIS MANAGEMEN ATION; ES T, TAXI NONEMERGE A0100 [facility] [place], [facility] 4 [facility] TRANSPORT ENTERPRIS MANAGEMEN ATION; ES T, [facility] HOME CARE S[address] [facility] D AREA CARE AGENCY AGENCY CLIENT PER 15 MIN NONEMERGE A0100 [facility] [place], [facility] 4 [facility] TRANSPORT ENTERPRIS MANAGEMEN ATION; ES T, TAXI NONEMERGE A0100 [facility] [place], [facility] 4 TRANS[facility] HEALTH TRANSPORT ENTERPRIS MANAGEMEN ATION; ES T, TAXI O2 CONC 1 E1390 [facility] 4 MEDICAL MEDICAL 85%/>02 LLC; LLC; [facility] AT [facility] FLW RATE HOME CARE S5108 Checkout10 [facility] 4 [facility] D AREA D AREA CARE AGENCY AGENCY CLIENT PER 15 MIN NONEMERGE A0100 [facility] [place] 4 [facility]ALTH TRANSPORT ENTERPRIS MANAGEMEN ATION; ES T, TAXI NONEMERGE A0100 [facility] [place] 4 TRANS[facility] HEALTH TRANSPORT ENTERPRIS MANAGEMEN ATION; ES T, TAXI NONEMERGE A0100 [facility] [place], [facility] 4 [facility] HEALTH TRANSPORT ENTERPRIS MANAGEMEN ATION; ES T, [facility] S5108 [facility] 4 [facility] AREA CARE AGENCY AGENCY CLIENT PER 15 MIN NONEMERGE A0100 [facility] [place] 4 [facility] HEALTH TRANSPORT ENTERPRIS MANAGEMEN ATION; ES T, TAXI NONEMERGE A0100 [facility] [place] 4 [facility]ANS[facility] HEALTH TRANSPORT ENTERPRIS MANAGEMEN ATION; ES T, TAXI NONEMERGE A0100 [facility] [place] 4 [facility]ANS[facility] HEALTH TRANSPORT ENTERPRIS MANAGEMEN ATION; ES T, TAXI NONEMERGE A0100 [facility] 4 [facility] TRANSPORT ENTERPRIS MANAGEMEN ATION; ES T, TAXI O2 CONC 1 E1390 [facility] 4 MEDICAL MEDICAL 85%/>02 LLC; LLC; [facility] FL[facility] RATE NONEMERGE A0100 [facility] 4 [facility] TRANSPORT ENTERPRIS MANAGEMEN ATION; ES T, TAXI NONEMERGE A0100 [facility] 4 [facility] TRANSPORT ENTERPRIS MANAGEMEN ATION; ES T, TAXI PROTHROMB 46412 [facility] IN TIME 4 O MEDICAL O MEDICAL ASSOC LA ASSOC LA NONEMERGE A0100 [facility] [place] 4 [facility] TRANSPORT ENTERPRIS MANAGEMEN ATION; ES T, TAXI NONEMERGE A0100 [facility] 4 [facility] TRANSPORT ENTERPRIS MANAGEMEN ATION; ES T, [facility] S5108 [facility] 4 [facility] AREA CARE AGENCY AGENCY CLIENT PER [address] [facility] 4 CARDIOLOG CARE/DAY Y 35 MINUTES ECG 98067 CARDIO ABOU ROUTINE 4 AND TREMAINE ECG ELECTRO TAR W/LEAST SPECIALIS 12 LDS I&R ONLY SBSQ 65771 [facility] 4 CARDIOLOG CARE/DAY Y 35 MINUTES ECG 79279 CARDIO ABOU ROUTINE 4 AND TREMAINE ECG ELECTRO TAR W/LEAST SPECIALIS 12 LDS I&R ONLY RADIOLOGI 12138 IZABELA BAKER LYN C EXAM 4 CHEST 2 RADIOLOGY VIEWS ASSOC FRONTAL&L ATERAL NONEMERGE A0100 [facility] 4 [facility] TRANSPORT ENTERPRIS MANAGEMEN ATION; ES T, TAXI NONEMERGE A0100 [facility] 4 [facility] TRANSPORT ENTERPRIS MANAGEMEN ATION; ES T, TAXI NONEMERGE A0100 [facility] [place], [facility] 4 TRANS[facility] HEALTH TRANSPORT ENTERPRIS MANAGEMEN ATION; ES T, TAXI O2 CONC 1 E1390 [facility] 4 MEDICAL MEDICAL 85%/>02 [facility]; [facility]; [facility] AT [facility] PROTHROMB 32212 [facility] IN TIME 4 O MEDICAL O MEDICAL ASSOC LA ASSOC LA NONEMERGE A0100 [facility] [place] 4 TRANS[facility] HEALTH TRANSPORT ENTERPRIS MANAGEMEN ATION; ES T, TAXI NONEMERGE A0100 [facility] [place], [facility] 4 TRANS[facility] HEALTH TRANSPORT ENTERPRIS MANAGEMEN ATION; ES T, [facility] HOME CARE S5108 [facility] TRAINING 4 [facility] D AREA D AREA CARE AGENCY AGENCY CLIENT PER 15 MIN REPL LIU A4233 ARRIVA ARRIVA ALKALINE 4 MEDICAL MEDICAL NOT J CELL MERON BG MON OWND PT PROTHROMB 48193 [facility] IN TIME 4 O MEDICAL O MEDICAL ASSOC LA ASSOC LA NONEMERGE A0100 [facility] [place] 4 TRANS[facility] HEALTH TRANSPORT ENTERPRIS MANAGEMEN ATION; ES T, TAXI SPRING-PO A4258 ARRIVA ARRIVA WERED 4 MEDICAL METAL COATER FOR LANCET EACH BLD GLU A4253 [facility]RIVA ARRIVA TEST/REAG 4 MEDICAL MEDICAL T STRIPS HOME BLD GLU MON-50 NORMAL A4256 ARRIVA ARRIVA LOW AND 4 MEDICAL MEDICAL HIGH CALIBRATO R SOLUTION/ CHIPS LANCETS A4259 ARRIVA ARRIVA PER BOX 4 MEDICAL MEDICAL OF 100 NONEMERGE A0100 [facility] 4 [facility] TRANSPORT ENTERPRIS MANAGEMEN ATION; ES T, TAXI NONEMERGE A0100 [facility] 4 TRANS[facility] HEALTH TRANSPORT ENTERPRIS MANAGEMEN ATION; ES T, TAXI NONEMERGE A0100 [facility] 4 [facility]ALTH TRANSPORT ENTERPRIS MANAGEMEN ATION; ES T, TAXI NONEMERGE A0100 [facility] 4 TRANS[facility] HEALTH TRANSPORT ENTERPRIS MANAGEMEN ATION; ES T, TAXI NONEMERGE A0100 [facility] [place] 4 [facility]ANS[facility]ALTH TRANSPORT ENTERPRIS MANAGEMEN ATION; ES T, TAXI PROTHROMB 05384 [facility] IN TIME 4 [facility]OSP INC HOSP INC COLLECTIO 15227 [facility] N VENOUS 4 HOSP [place] [address] [facility] INFUSION 4 HOSP INC HOSP INC HYDRATION INITIAL 31 MIN-1 HOUR INJECTION [id number] [place] [address] [facility] INC ONDANSETR ON HCL PER 1 MG BLOOD 30842 [facility] COUNT 4 HOSP INC HOSP INC COMPLETE AUTO&[place] [address] [facility] TROPONIN 4 HOSP INC HOSP INC QUANTITAT TIKA CREATINE 87213 [facility] KINASE MB 4 HOSP INC HOSP INC FRACTION ONLY CREATINE 38616 [facility] KINASE 4 HOSP INC HOSP INC TOTAL RADIOLOGI 38334 [facility] C 4 HOSP INC HOSP INC EXAMINATI ON CHEST SINGLE VIEW FRONTAL THROMBOPL 65653 [facility] ASTIN 4 HOSP INC HOSP INC TIME PARTIAL PLASMA/WH OLE BLOOD THER 21011 [facility] PROPH/DX 4 HOSP INC HOSP INC NJX IV PUSH SINGLE/1S T SBST/DRUG URNLS DIP 54087 [facility] 4 HOSP INC HOSP INC STICK/TAB LET RGNT AUTO W/O MICROSCOP Y ECG 26742 [facility] ROUTINE 4 HOSP INC HOSP INC ECG W/LEAST 12 LDS TRCG ONLY W/O I&R COMPREHEN 64193 [facility] SIVE 4 HOSP INC HOSP INC METABOLIC PANEL GROUND A0425 [facility] MILEAGE 4 EMS EMS PER STATUTE MILE AMBULANCE A0429 [facility] SERVICE 4 EMS EMS BLS EMERGENCY TRANSPORT NONEMERGE A0100 [facility] [place], [facility] 4 [facility] TRANSPORT ENTERPRIS MANAGEMEN ATION; ES T, TAXI NONEMERGE A0100 [facility] [place] 4 TRANS[facility] HEALTH TRANSPORT ENTERPRIS MANAGEMEN ATION; ES T, TAXI NONEMERGE A0100 [facility] [place], [facility] 4 TRANS[facility] HEALTH TRANSPORT ENTERPRIS MANAGEMEN ATION; ES T, TAXI NONEMERGE A0100 [facility] [place] 4 TRANS[facility] HEALTH TRANSPORT ENTERPRIS MANAGEMEN ATION; ES T, [facility] HOME CARE S5108 [facility] 4 [facility] AREA D AREA CARE AGENCY AGENCY CLIENT PER 15 MIN O2 CONC 1 E1390 [facility] 4 MEDICAL MEDICAL 85%/>02 LLC; LLC; CONC AT [facility] FLW RATE ECG 58548 [facility] ROUTINE 4 O MEDICAL JUAN ECG W/LEAST ASSOCIATE 12 LDS TRCG ONLY W/O I&R NONEMERGE A0100 [facility] [place] 4 TRANS[facility] HEALTH TRANSPORT ENTERPRIS MANAGEMEN ATION; ES T, TAXI NONEMERGE A0100 [facility] [place] 4 TRANS[facility] HEALTH TRANSPORT ENTERPRIS MANAGEMEN ATION; ES T, TAXI COMPREHEN 35719 [facility] SIVE 4 O MEDICAL O MEDICAL METABOLIC ASSOC LA ASSOC LA PANEL LIPID 34510 [facility] PANEL 4 O MEDICAL O MEDICAL ASSOC LA ASSOC LA COLLECTIO 33956 [facility] N VENOUS 4 O MEDICAL O MEDICAL BLOOD ASSOC LA ASSOC LA VENIPUNCT URE PROTHROMB 72610 [facility] IN TIME 4 O MEDICAL O MEDICAL ASSOC LA ASSOC LA NONEMERGE A0100 [facility] 4 [facility] TRANSPORT ENTERPRIS MANAGEMEN ATION; ES T, [facility] HOME CARE S5108 [facility] TRAINING 4 [facility] D AREA D AREA CARE AGENCY AGENCY CLIENT PER 15 MIN IAADIADOO 31029 [facility] 4 O MEDICAL O MEDICAL STREPTOCO ASSOC LA ASSOC LA CCUS GROUP A IAADIADOO 74839 [facility] 4 O MEDICAL O MEDICAL INFLUENZA ASSOC LA ASSOC LA URNLS DIP 23781 [facility] 4 O MEDICAL O MEDICAL STICK/TAB ASSOC LA ASSOC LA LET RGNT AUTO W/O MICROSCOP Y COLLECTIO 91825 [facility] N VENOUS 4 O MEDICAL O MEDICAL BLOOD ASSOC LA ASSOC LA VENIPUNCT URE BLOOD 96064 [facility] COUNT 4 O MEDICAL O MEDICAL COMPLETE ASSOC LA ASSOC LA AUTO&AUTO DIFRNTL WBC CREATININ 10081 [facility] E OTHER 4 O MEDICAL O MEDICAL SOURCE ASSOC LA ASSOC LA NONEMERGE A0100 [facility] 4 [facility] TRANSPORT ENTERPRIS MANAGEMEN ATION; ES T, TAXI NONEMERGE A0100 [facility] 4 TRANS[facility] HEALTH TRANSPORT ENTERPRIS MANAGEMEN ATION; ES T, TAXI NONEMERGE A0100 [facility] [place] 4 TRANS[facility] HEALTH TRANSPORT ENTERPRIS MANAGEMEN ATION; ES T, TAXI NONEMERGE A0100 [facility] 4 [facility] TRANSPORT ENTERPRIS MANAGEMEN ATION; ES T, [place] [address] [facility] THYROID 4 O MEDICAL O MEDICAL STIMULATI ASSOC LA ASSOC LA NG HORMONE TSH BLOOD 30952 [facility] COUNT 4 O MEDICAL O MEDICAL COMPLETE ASSOC LA ASSOC LA AUTO&AUTO DIFRNTL WBC COLLECTIO 36261 [facility] N VENOUS 4 O MEDICAL O MEDICAL BLOOD ASSOC LA ASSOC LA VENIPUNCT URE PROTHROMB 45019 [facility] IN TIME 4 O MEDICAL O MEDICAL ASSOC LA ASSOC LA COMPREHEN 83450 [facility] [place] 4 O MEDICAL O MEDICAL METABOLIC ASSOC LA ASSOC LA PANEL NONEMERGE A0100 [facility] [place], [facility] 4 [facility]ANS[facility] HE[facility] TRANSPORT ENTERPRIS MANAGEMEN ATION; ES T, TAXI NONEMERGE A0100 [facility] [place], [facility] 4 TRANSIT HEALTH TRANSPORT ENTERPRIS MANAGEMEN ATION; ES T, TAXI NONEMERGE A0100 [facility] [place], [facility] 4 TRANSIT HEALTH TRANSPORT ENTERPRIS MANAGEMEN ATION; ES T, TAXI NONEMERGE A0100 [facility] [place], [facility] 4 TRANSIT HEALTH TRANSPORT ENTERPRIS MANAGEMEN ATION; ES T, [facility] HOME CARE S5108 Checkout10 [facility] 4 [facility] Cl[facility]elyVIB[facility] AREA D AREA CARE AGENCY AGENCY CLIENT PER 15 MIN DISPBL [id number] PERSONAL PERSONAL LINER/JARED 4 TOUCH TOUCH ELD/GUARD HOME JAIL CARE /PAD/UNDG OF OF RMNT INCONT EA NONEMERGE A0100 [facility] [place], [facility] 4 [facility] TRANSPORT ENTERPRIS MANAGEMEN ATION; ES T, TAXI NONEMERGE A0100 [facility] [place], [facility] 4 TRANSIT HEALTH TRANSPORT ENTERPRIS MANAGEMEN ATION; ES T, TAXI NONEMERGE A0100 [facility] [place], [facility] 4 TRANSIT HEALTH TRANSPORT ENTERPRIS MANAGEMEN ATION; ES T, TAXI NONEMERGE A0100 [facility] [place], [facility] 4 TRANSIT HEALTH TRANSPORT ENTERPRIS MANAGEMEN ATION; ES T, TAXI O2 CONC 1 E1390 [facility] 4 MEDICAL MEDICAL 85%/>02 [facility] CONC AT [facility] FLW RATE NONEMERGE A0100 [facility] 4 [facility] TRANSPORT ENTERPRIS MANAGEMEN ATION; ES T, TAXI HOME CARE S5108 [facility] 4 [facility] Health CareWESTERN ARIZONA REGIONAL MEDICAL CENTERGigSocial [facility] AREA AREA CARE AGENCY AGENCY CLIENT PER 15 MIN NONEMERGE A0100 [facility] [place], [facility] 3 TRANS[facility] HEALTH TRANSPORT ENTERPRIS MANAGEMEN ATION; ES T, TAXI NONEMERGE A0100 [facility] [place], [facility] 3 TRANSIT HEALTH TRANSPORT ENTERPRIS MANAGEMEN ATION; ES T, TAXI NONEMERGE A0100 [facility] [place] 3 TRANSIT HEALTH TRANSPORT ENTERPRIS MANAGEMEN ATION; ES T, TAXI NONEMERGE A0100 [facility] [place] 3 TRANSIT HEALTH TRANSPORT ENTERPRIS MANAGEMEN ATION; ES T, TAXI NONEMERGE A0100 [facility] [place], [facility] 3 TRANSIT HEALTH TRANSPORT ENTERPRIS MANAGEMEN ATION; ES T, TAXI NONEMERGE A0100 [facility] [place], [facility] 3 TRANSIT HEALTH TRANSPORT ENTERPRIS MANAGEMEN ATION; ES T, TAXI NONEMERGE A0100 [facility] [place], [facility] 3 TRANSIT HEALTH TRANSPORT ENTERPRIS MANAGEMEN ATION; ES T, TAXI NONEMERGE A0100 [facility] [place], [facility] 3 TRANSIT HEALTH TRANSPORT ENTERPRIS MANAGEMEN ATION; ES T, TAXI NONEMERGE A0100 [facility] [place], [facility] 3 TRANSIT HEALTH TRANSPORT ENTERPRIS MANAGEMEN ATION; ES T, TAXI NONEMERGE A0100 [facility] [place], [facility] 3 TRANSIT HEALTH TRANSPORT ENTERPRIS MANAGEMEN ATION; ES T, [facility] HOME CARE S5108 [facility] 3 [facility] D AREA D AREA CARE AGENCY AGENCY CLIENT PER 15 MIN NONEMERGE A0100 [facility] [place], [facility] 3 TRANSIT HEALTH TRANSPORT ENTERPRIS MANAGEMEN ATION; ES T, TAXI NONEMERGE A0100 [facility] [place], [facility] 3 TRANSIT HEALTH TRANSPORT ENTERPRIS MANAGEMEN ATION; ES T, TAXI NONEMERGE A0100 [facility] [place], [facility] 3 TRANSIT HEALTH TRANSPORT ENTERPRIS MANAGEMEN ATION; ES T, TAXI NONEMERGE A0100 [facility] [place], [facility] 3 TRANSIT HEALTH TRANSPORT ENTERPRIS MANAGEMEN ATION; ES T, TAXI O2 CONC 1 E1390 [facility] 3 MEDICAL MEDICAL 85%/>02 CHIDI MURILLO CONC AT [facility] FLW RATE NONEMERGE A0100 [facility] [place], [facility] 3 TRANSIT HEALTH TRANSPORT ENTERPRIS MANAGEMEN ATION; ES T, TAXI NONEMERGE A0100 [facility] [place], [facility] 3 TRANSIT HEALTH TRANSPORT ENTERPRIS MANAGEMEN ATION; ES T, TAXI NONEMERGE A0100 [facility] [place], [facility] 3 TRANSIT HEALTH TRANSPORT ENTERPRIS MANAGEMEN ATION; ES T, TAXI NONEMERGE A0100 [facility] [place], [facility] 3 TRANSIT HEALTH TRANSPORT ENTERPRIS MANAGEMEN ATION; ES T, TAXI LANCETS A4259 ARRIVA ARRIVA PER BOX 3 MEDICAL MEDICAL OF 100 NORMAL A4256 ARRIVA ARRIVA LOW AND 3 MEDICAL MEDICAL HIGH CALIBRATO R SOLUTION/ CHIPS BLD GLU A4253 ARRIVA ARRIVA TEST/REAG 3 MEDICAL MEDICAL T STRIPS HOME BLD GLU MON-50 NONEMERGE A0100 [facility] [place], [facility] 3 TRANSIT HEALTH TRANSPORT ENTERPRIS MANAGEMEN ATION; ES T, TAXI NONEMERGE A0100 [facility] [place], [facility] 3 TRANSIT HEALTH TRANSPORT ENTERPRIS MANAGEMEN ATION; ES T, TAXI NONEMERGE A0100 [facility] [place], [facility] 3 TRANSIT HEALTH TRANSPORT ENTERPRIS MANAGEMEN ATION; ES T, TAXI NONEMERGE A0100 [facility] [place], [facility] 3 TRANSIT HEALTH TRANSPORT ENTERPRIS MANAGEMEN ATION; ES T, TAXI NONEMERGE A0100 [facility] [place], [facility] 3 TRANSIT HEALTH TRANSPORT ENTERPRIS MANAGEMEN ATION; ES T, TAXI NONEMERGE A0100 [facility] [place], [facility] 3 TRANSIT HEALTH TRANSPORT ENTERPRIS MANAGEMEN ATION; ES T, TAXI NONEMERGE A0100 [facility] [place], [facility] 3 TRANSIT HEALTH TRANSPORT ENTERPRIS MANAGEMEN ATION; ES T, TAXI NONEMERGE A0100 [facility] [place], [facility] 3 TRANSIT HEALTH TRANSPORT ENTERPRIS MANAGEMEN ATION; ES T, [facility] HOME CARE S5108 [facility] [address] [facility] HOME D AREA D AREA CARE AGENCY AGENCY CLIENT PER 15 MIN NONEMERGE A0100 [facility] [place], [facility] 3 TRANSIT HEALTH TRANSPORT ENTERPRIS MANAGEMEN ATION; ES T, TAXI NONEMERGE A0100 [facility] [place], [facility] 3 TRANSIT HEALTH TRANSPORT ENTERPRIS MANAGEMEN ATION; ES T, TAXI NONEMERGE A0100 [facility] [place], [facility] 3 TRANSIT HEALTH TRANSPORT ENTERPRIS MANAGEMEN ATION; ES T, TAXI NONEMERGE A0100 [facility] 3 TRANSIT HEALTH TRANSPORT ENTERPRIS MANAGEMEN ATION; ES T, TAXI O2 CONC 1 E1390 [facility] 3 MEDICAL MEDICAL 85%/>02 CH[facility] SOMEPROSPERET CONC AT [facility] FLW RATE NONEMERGE A0100 [facility] [place], [facility] 3 TRANSIT HEALTH TRANSPORT ENTERPRIS MANAGEMEN ATION; ES T, TAXI NONEMERGE A0100 [facility] 3 TRANSIT HEALTH TRANSPORT ENTERPRIS MANAGEMEN ATION; ES T, TAXI NONEMERGE A0100 [facility] 3 TRANSIT HEALTH TRANSPORT ENTERPRIS MANAGEMEN ATION; ES T, TAXI NONEMERGE A0100 [facility] 3 TRANSIT HEALTH TRANSPORT ENTERPRIS MANAGEMEN ATION; ES T, TAXI NONEMERGE A0100 [facility] [place] 3 TRANSIT HEALTH TRANSPORT ENTERPRIS MANAGEMEN ATION; ES T, [facility] HOME CARE S5108 [facility] 3 [facility] AREA D AREA CARE AGENCY AGENCY CLIENT PER 15 MIN PROTHROMB 82243 [facility] IN TIME 3 O MEDICAL O MEDICAL ASSOC LA ASSOC LA NONEMERGE A0100 [facility] [place], [facility] 3 TRANSIT HEALTH TRANSPORT ENTERPRIS MANAGEMEN ATION; ES T, TAXI NONEMERGE A0100 [facility] [place], [facility] 3 TRANSIT HEALTH TRANSPORT ENTERPRIS MANAGEMEN ATION; ES T, TAXI NONEMERGE A0100 [facility] [place], [facility] 3 TRANSIT HEALTH TRANSPORT ENTERPRIS MANAGEMEN ATION; ES T, TAXI NONEMERGE A0100 [facility] 3 TRANSIT HEALTH TRANSPORT ENTERPRIS MANAGEMEN ATION; ES T, TAXI NONEMERGE A0100 [facility] 3 TRANSIT HEALTH TRANSPORT ENTERPRIS MANAGEMEN ATION; ES T, TAXI NONEMERGE A0100 [facility] 3 TRANSIT HEALTH TRANSPORT ENTERPRIS MANAGEMEN ATION; ES T, TAXI NONEMERGE A0100 [facility] [place] 3 TRANSIT HEALTH TRANSPORT ENTERPRIS MANAGEMEN ATION; ES T, TAXI NONEMERGE A0100 [facility] 3 TRANSIT HEALTH TRANSPORT ENTERPRIS MANAGEMEN ATION; ES T, TAXI PROTHROMB 98801 [facility] IN TIME 3 O MEDICAL O MEDICAL ASSOC LA ASSOC LA BLOOD 83445 [facility]ES COUNT 3 O MEDICAL O MEDICAL COMPLETE ASSOC LA ASSOC LA AUTO&AUTO DIFRNTL WBC COMPREHEN 52194 [facility] SIVE 3 O MEDICAL O MEDICAL METABOLIC ASSOC LA ASSOC LA PANEL COLLECTIO 51745 LONG ALVES N VENOUS 3 O MEDICAL O MEDICAL BLOOD ASSOC LA ASSOC LA VENIPUNCT URE ALBUMIN 76251 LAB GALA LAB GALA URINE 3 DAVID DAVID MICROALBU HOLDINGS [place] [address] LONG ALVES THYROID 3 O MEDICAL O MEDICAL STIMULATI ASSOC LA ASSOC LA NG HORMONE TSH CREATININ 93570 LAB GALA LAB GALA E OTHER 3 DAVID DAVID SOURCE HOLDINGS HOLDINGS HEMOGLOBI 31670 LONG ALVES N 3 O MEDICAL O MEDICAL GLYCOSYLA ASSOC LA ASSOC LA DOTTIE A1C LIPID 09600 LONG GARAY PANEL 3 O MEDICAL O MEDICAL ASSOC LA ASSOC LA NONEMERGE A0100 [facility] 3 [facility] TRANSPORT ENTERPRIS MANAGEMEN ATION; ES T, TAXI NONEMERGE A0100 [facility] [place] 3 [facility]ANS[facility] TRANSPORT ENTERPRIS MANAGEMEN ATION; ES T, TAXI HOME CARE S5108 [facility] 3 [facility] AREA D AREA CARE AGENCY AGENCY CLIENT PER 15 MIN NONEMERGE A0100 [facility] 3 [facility] TRANSPORT ENTERPRIS MANAGEMEN ATION; ES T, TAXI NONEMERGE A0100 [facility] 3 [facility] TRANSPORT ENTERPRIS MANAGEMEN ATION; ES T, TAXI NONEMERGE A0100 [facility] [place] [facility] TRANSPORT ENTERPRIS MANAGEMEN ATION; ES T, TAXI NONEMERGE A0100 [facility] [place] [facility]ALTH TRANSPORT ENTERPRIS MANAGEMEN ATION; ES T, TAXI O2 CONC 1 [id number] [facility] 3 MEDICAL MEDICAL 85%/>02 [facility] FLW RATE NONEMERGE A0100 [facility] [place] 3 [facility] TRANSPORT ENTERPRIS MANAGEMEN ATION; ES T, TAXI NONEMERGE A0100 [facility] [place], [facility] 3 TRANS[facility] HEALTH TRANSPORT ENTERPRIS MANAGEMEN ATION; ES T, TAXI NONEMERGE A0100 [facility] [place], [facility] 3 TRANS[facility] HEALTH TRANSPORT ENTERPRIS MANAGEMEN ATION; ES T, TAXI NONEMERGE A0100 [facility] [place], [facility] 3 TRANS[facility] HEALTH TRANSPORT ENTERPRIS MANAGEMEN ATION; ES T, TAXI NONEMERGE A0100 [facility] [place], [facility] 3 TRANSIT HEALTH TRANSPORT ENTERPRIS MANAGEMEN ATION; ES T, [facility] CARE S5108 [facility] 3 [facility] ARE[facility] CARE AGENCY AGENCY CLIENT PER 15 MIN NONEMERGE A0100 [facility] [place], [facility] 3 [facility]ALTH TRANSPORT ENTERPRIS MANAGEMEN ATION; ES T, TAXI NONEMERGE A0100 [facility] [place], [facility] 3 TRANSIT HEALTH TRANSPORT ENTERPRIS MANAGEMEN ATION; ES T, TAXI NONEMERGE A0100 [facility] [place], [facility] 3 TRANSIT HEALTH TRANSPORT ENTERPRIS MANAGEMEN ATION; ES T, TAXI NONEMERGE A0100 [facility] [place], [facility] 3 TRANSIT HEALTH TRANSPORT ENTERPRIS MANAGEMEN ATION; ES T, TAXI NONEMERGE A0100 [facility] [place], [facility] 3 TRANSIT HEALTH TRANSPORT ENTERPRIS MANAGEMEN ATION; ES T, TAXI NONEMERGE A0100 [facility] [place], [facility] 3 TRANSIT HEALTH TRANSPORT ENTERPRIS MANAGEMEN ATION; ES T, TAXI NONEMERGE A0100 [facility] [place], [facility] 3 TRANSIT HEALTH TRANSPORT ENTERPRIS MANAGEMEN ATION; ES T, TAXI NONEMERGE A0100 [facility] [place], [facility] 3 [facility]SP[facility] ENTERPRIS MANAGEMEN ATION; ES T, TAXI NONEMERGE A0100 [facility] [place], [facility] 3 [facility] TRANSPORT ENTERPRIS MANAGEMEN ATION; ES T, TAXI NONEMERGE A0100 [facility] [place], [facility] 3 [facility] TRANSPORT ENTERPRIS MANAGEMEN ATION; ES T, TAXI HOME CARE S5108 [facility] TRA[facility]ING 3 [facility] AREA D AREA CARE AGENCY AGENCY CLIENT PER 15 MIN NONEMERGE A0100 [facility] 3 [facility]SP[facility] ENTERPRIS MANAGEMEN ATION; ES T, TAXI NONEMERGE A0100 [facility] 3 [facility] TRANSPORT ENTERPRIS MANAGEMEN ATION; ES T, TAXI NONEMERGE A0100 [facility] 3 [facility] TRANSPORT ENTERPRIS MANAGEMEN ATION; ES T, TAXI NONEMERGE A0100 [facility] 3 [facility] TRANSPORT ENTERPRIS MANAGEMEN ATION; ES T, TAXI MISC TX T1999 [employer] ITEMS & 3 [facility] D AREA D AREA RETAIL AGENCY AGENCY PURCHASE NOC O2 CONC 1 E1390 [facility] MEDICAL MEDICAL 85%/>02 SOMERSET SOMERSET CONC AT [facility] PRSC FLW RATE NONEMERGE A0100 [facility] 3 [facility] TRANSPORT ENTERPRIS MANAGEMEN ATION; ES T, TAXI NONEMERGE A0100 [facility] 3 [facility] TRANSPORT ENTERPRIS MANAGEMEN ATION; ES T, TAXI NONEMERGE A0100 [facility] 3 [facility] TRANSPORT ENTERPRIS MANAGEMEN ATION; ES T, TAXI COLLECTIO 04793 [facility] N VENOUS 3 O MEDICAL O MEDICAL BLOOD ASSOC LA ASSOC LA VENIPUNCT URE LIPID 11999 [facility] PANEL 3 O MEDICAL O MEDICAL ASSOC LA ASSOC LA COMPREHEN 46539 [facility] SIVE 3 O MEDICAL O MEDICAL METABOLIC ASSOC LA ASSOC LA PANEL HOME CARE S5108 [facility] TRAINING [facility] ARE[facility] D AREA CARE AGENCY AGENCY CLIENT PER 15 MIN NONEMERGE A0100 [facility] 3 [facility]SP[facility] ENTERPRIS MANAGEMEN ATION; ES T, TAXI NONEMERGE A0100 [facility] 3 [facility]SP[facility] ENTERPRIS MANAGEMEN ATION; ES T, TAXI BLD GLU A4253 [facility] ARRIVA TEST/REAG 3 MEDICAL MEDICAL T STRIPS HOME BLD GLU MON-50 LANCETS A4259 ARRIVA ARRIVA PER BOX 3 MEDICAL MEDICAL OF 100 HOME E0607 ARRIVA ARRIVA BLOOD 3 MEDICAL MEDICAL GLUCOSE MONITOR NONEMERGE A0100 [facility] [place], [facility] 3 [facility]SP[facility] ENTERPRIS MANAGEMEN ATION; ES T, TAXI NONEMERGE A0100 [facility] [place], [facility] 3 [facility] TRANSPORT ENTERPRIS MANAGEMEN ATION; ES T, TAXI NONEMERGE A0100 [facility] 3 [facility] TRANSPORT ENTERPRIS MANAGEMEN ATION; ES T, TAXI NONEMERGE A0100 [facility] [place], [facility] 3 [facility] TRANSPORT ENTERPRIS MANAGEMEN ATION; ES T, TAXI NONEMERGE A0100 [facility] [place], [facility] 3 [facility] TRANSPORT ENTERPRIS MANAGEMEN ATION; ES T, TAXI NONEMERGE A0100 [facility] [place], [facility] 3 [facility]ALTH TRANSPORT ENTERPRIS MANAGEMEN ATION; ES T, TAXI NONEMERGE A0100 [facility] [place], [facility] 3 [facility]ALTH TRANSPORT ENTERPRIS MANAGEMEN ATION; ES T, TAXI NONEMERGE A0100 [facility] [place], [facility] 3 [facility] HEALTH TRANSPORT ENTERPRIS MANAGEMEN ATION; ES T, TAXI NONEMERGE A0100 [facility] [place], [facility] 3 [facility] TRANSPORT ENTERPRIS MANAGEMEN ATION; ES T, TAXI HOME CARE S5108 [facility] 3 [facility] D AREA D AREA CARE AGENCY AGENCY CLIENT PER 15 MIN NONEMERGE A0100 [facility] [place], [facility] 3 [facility] TRANSPORT ENTERPRIS MANAGEMEN ATION; ES T, TAXI NONEMERGE A0100 [facility] [place], [facility] 3 [facility] TRANSPORT ENTERPRIS MANAGEMEN ATION; ES T, TAXI NONEMERGE A0100 [facility] [place], [facility] 3 [facility] TRANSPORT ENTERPRIS MANAGEMEN ATION; ES T, TAXI NONEMERGE A0100 [facility] [place], [facility] 3 [facility] TRANSPORT ENTERPRIS MANAGEMEN ATION; ES T, TAXI NONEMERGE A0100 [facility] [place], [facility] 3 [facility] TRANSPORT ENTERPRIS MANAGEMEN ATION; ES T, TAXI O2 CONC 1 E1390 [facility] [place] 3 MEDICAL MEDICAL 85%/>02 SOMERSET SOMERSET CONC AT [facility] FLW RATE NONEMERGE A0100 [facility] [place], [facility] 3 [facility] TRANSPORT ENTERPRIS MANAGEMEN ATION; ES T, TAXI NONEMERGE A0100 [facility] [place], [facility] 3 [facility] TRANSPORT ENTERPRIS MANAGEMEN ATION; ES T, TAXI NONEMERGE A0100 [facility] [place], [facility] 3 [facility] TRANSPORT ENTERPRIS MANAGEMEN ATION; ES T, TAXI NONEMERGE A0100 [facility] [place], [facility] 3 [facility] TRANSPORT ENTERPRIS MANAGEMEN ATION; ES T, TAXI HOME CARE S5108 [facility] [address] [facility] HOME D AREA D AREA CARE AGENCY AGENCY CLIENT PER 15 MIN NONEMERGE A0100 [facility] [place], [facility] 3 [facility] TRANSPORT ENTERPRIS MANAGEMEN ATION; ES T, TAXI NONEMERGE A0100 [facility] [place], [facility] 3 [facility] TRANSPORT ENTERPRIS MANAGEMEN ATION; ES T, TAXI NONEMERGE A0100 [facility] [place], [facility] 3 [facility] TRANSPORT ENTERPRIS MANAGEMEN ATION; ES T, TAXI NONEMERGE A0100 [facility] [place], [facility] 3 [facility] TRANSPORT ENTERPRIS MANAGEMEN ATION; ES T, TAXI NONEMERGE A0100 [facility] [place], [facility] 3 [facility] TRANSPORT ENTERPRIS MANAGEMEN ATION; ES T, TAXI PROTHROMB 52095 [facility] IN TIME 3 O MEDICAL O MEDICAL ASSOC LA ASSOC LA NONEMERGE A0100 [facility] [place], [facility] 3 [facility] TRANSPORT ENTERPRIS MANAGEMEN ATION; ES T, TAXI NONEMERGE A0100 [facility] [place], [facility] 3 [facility] TRANSPORT ENTERPRIS MANAGEMEN ATION; ES T, TAXI NONEMERGE A0100 [facility] [place], [facility] 3 [facility] TRANSPORT ENTERPRIS MANAGEMEN ATION; ES T, TAXI NONEMERGE A0100 [facility] [place], [facility] 3 [facility] TRANSPORT ENTERPRIS MANAGEMEN ATION; ES T, TAXI PROTHROMB [id number] LONG ALVES IN TIME 3 O MEDICAL O MEDICAL ASSOC LA ASSOC LA NONEMERGE A0100 [facility] 3 [facility]SP[facility] ENTERPRIS MANAGEMEN ATION; ES T, TAXI NONEMERGE A0100 [facility] [place] 3 [facility] TRANSPORT ENTERPRIS MANAGEMEN ATION; ES T, TAXI HOME CARE S5108 [facility] [address] [facility] HOME D AREA D AREA CARE AGENCY AGENCY CLIENT PER 15 MIN NONEMERGE A0100 [facility] 3 [facility]SP[facility] ENTERPRIS MANAGEMEN ATION; ES T, TAXI NONEMERGE A0100 [facility] [place], [facility] 3 [facility] TRANSPORT ENTERPRIS MANAGEMEN ATION; ES T, TAXI LIPID 41213 LONG ALVES PANEL 3 O MEDICAL O MEDICAL ASSOC LA ASSOC LA COMPREHEN 63657 [facility] O MEDICAL O MEDICAL METABOLIC ASSOC LA ASSOC LA PANEL COLLECTIO 12179 [facility] N VENOUS 3 O MEDICAL O MEDICAL BLOOD ASSOC LA ASSOC LA VENIPUNCT URE PROTHROMB 92316 [facility] LONG IN TIME 3 O MEDICAL O MEDICAL ASSOC LA ASSOC LA BLOOD 42586 [facility] COUNT 3 O MEDICAL O MEDICAL COMPLETE ASSOC LA ASSOC LA AUTO&AUTO DIFRNTL WBC HEMOGLOBI 36003 [facility] N 3 O MEDICAL O MEDICAL GLYCOSYLA ASSOC LA ASSOC LA DOTTIE A1C NONEMERGE A0100 [facility] 3 [facility] ENTERPRIS MANAGEMEN ATION; ES T, TAXI NONEMERGE A0100 [facility] 3 [facility]SPORT ENTERPRIS MANAGEMEN ATION; ES T, TAXI O2 CONC 1 E1390 [facility] [place] 3 MEDICAL MEDICAL 85%/>02 SOMERSET SOMERSET CONC AT [facility] PRS FLW RATE NONEMERGE A0100 [facility] 3 [facility] TRANSPORT ENTERPRIS MANAGEMEN ATION; ES T, TAXI NONEMERGE A0100 [facility] 3 [facility] TRANSPORT ENTERPRIS MANAGEMEN ATION; ES T, TAXI NONEMERGE A0100 [facility] 3 [facility] TRANSPORT ENTERPRIS MANAGEMEN ATION; ES T, TAXI HOME CARE S5108 [facility] 3 [facility] AREA AREA CARE AGENCY AGENCY CLIENT PER 15 MIN NONEMERGE A0100 [facility] 3 [facility] TRANSPORT ENTERPRIS MANAGEMEN ATION; ES T, TAXI NONEMERGE A0100 [facility] 3 [facility] TRANSPORT ENTERPRIS MANAGEMEN ATION; ES T, TAXI NONEMERGE A0100 [facility] 3 [facility] TRANSPORT ENTERPRIS MANAGEMEN ATION; ES T, TAXI NONEMERGE A0100 [facility] [place], [facility] 3 [facility] TRANSPORT ENTERPRIS MANAGEMEN ATION; ES T, TAXI NONEMERGE A0100 [facility] 3 [facility] TRANSPORT ENTERPRIS MANAGEMEN ATION; ES T, TAXI NONEMERGE A0100 [facility] 3 [facility] TRANSPORT ENTERPRIS MANAGEMEN ATION; ES T, TAXI NONEMERGE A0100 [facility] 3 [facility] TRANSPORT ENTERPRIS MANAGEMEN ATION; ES T, TAXI NONEMERGE A0100 [facility] [place], [facility] 3 [facility] TRANSPORT ENTERPRIS MANAGEMEN ATION; ES T, TAXI NONEMERGE A0100 [facility] 3 [facility] TRANSPORT ENTERPRIS MANAGEMEN ATION; ES T, TAXI HOME CARE S5108 [facility] 3 [facility] AREA AREA CARE AGENCY AGENCY CLIENT PER 15 MIN NONEMERGE A0100 [facility] 3 [facility]SPORT ENTERPRIS MANAGEMEN ATION; ES T, TAXI NONEMERGE A0100 [facility] [place], [facility] 3 [facility] TRANSPORT ENTERPRIS MANAGEMEN ATION; ES T, TAXI NONEMERGE A0100 [facility] [place], [facility] 3 [facility] TRANSPORT ENTERPRIS MANAGEMEN ATION; ES T, TAXI NONEMERGE A0100 [facility] [place], [facility] 3 [facility] TRANSPORT ENTERPRIS MANAGEMEN ATION; ES T, TAXI O2 CONC 1 E1390 [facility] [place] 3 MEDICAL MEDICAL 85%/>02 SOMERSET SOMERSET CONC AT [facility] FLW RATE NONEMERGE A0100 [facility] [place] 3 TR[facility] HEALTH TRANSPORT ENTERPRIS MANAGEMEN ATION; ES T, TAXI NONEMERGE A0100 [facility] [place] 3 [facility] TRANSPORT ENTERPRIS MANAGEMEN ATION; ES T, TAXI NONEMERGE A0100 [facility] [place] 3 TR[facility] HEALTH TRANSPORT ENTERPRIS MANAGEMEN ATION; ES T, TAXI NONEMERGE A0100 [facility] [place] 3 [facility] TRANSPORT ENTERPRIS MANAGEMEN ATION; ES T, TAXI HOME CARE S5108 [facility] [address] [facility] HOME D AREA D AREA CARE AGENCY AGENCY CLIENT PER 15 MIN NONEMERGE A0100 [facility] [place] 3 [facility]SPORT ENTERPRIS MANAGEMEN ATION; ES T, TAXI NONEMERGE A0100 [facility] [place] 3 [facility] TRANSPORT ENTERPRIS MANAGEMEN ATION; ES T, TAXI NONEMERGE A0100 [facility] [place] 3 [facility] TRANSPORT ENTERPRIS MANAGEMEN ATION; ES T, TAXI DISPBL [id number] PERSONAL PERSONAL LINER/JARED 3 TOUCH TOUCH ELD/GUARD HOME JAIL CARE /PAD/UNDG OF OF RMNT INCONT EA NONEMERGE A0100 [facility] [place], [facility] 3 [facility]SP[facility] ENTERPRIS MANAGEMEN ATION; ES T, TAXI NONEMERGE A0100 [facility] [place] 3 [facility] TRANSPORT ENTERPRIS MANAGEMEN ATION; ES T, TAXI NONEMERGE A0100 [facility] [place] 3 TR[facility] TRANSPORT ENTERPRIS MANAGEMEN ATION; ES T, TAXI NONEMERGE A0100 [facility] [place] 3 [facility] TRANSPORT ENTERPRIS MANAGEMEN ATION; ES T, TAXI NONEMERGE A0100 [facility] [place] 3 TR[facility] HEALTH TRANSPORT ENTERPRIS MANAGEMEN ATION; ES T, TAXI NONEMERGE A0100 [facility] 3 [facility] TRANSPORT ENTERPRIS MANAGEMEN ATION; ES T, TAXI NONEMERGE A0100 [facility] 3 [facility] TRANSPORT ENTERPRIS MANAGEMEN ATION; ES T, TAXI NONEMERGE A0100 [facility] 3 [facility] TRANSPORT ENTERPRIS MANAGEMEN ATION; ES T, TAXI NONEMERGE A0100 [facility] 3 [facility] TRANSPORT ENTERPRIS MANAGEMEN ATION; ES T, TAXI NONEMERGE A0100 [facility] 3 [facility] TRANSPORT ENTERPRIS MANAGEMEN ATION; ES T, TAXI NONEMERGE A0100 [facility] 3 [facility] TRANSPORT ENTERPRIS MANAGEMEN ATION; ES T, TAXI NONEMERGE A0100 [facility] 3 [facility] TRANSPORT ENTERPRIS MANAGEMEN ATION; ES T, TAXI O2 CONC 1 E1390 [facility] 3 MEDICAL MEDICAL 85%/>02 [facility] CONC AT [facility] FLW RATE NONEMERGE A0100 [facility] 3 [facility]SPORT ENTERPRIS MANAGEMEN ATION; ES T, TAXI NONEMERGE A0100 [facility] 3 [facility] TRANSPORT ENTERPRIS MANAGEMEN ATION; ES T, TAXI NONEMERGE A0100 [facility] [place] 3 [facility] TRANSPORT ENTERPRIS MANAGEMEN ATION; ES T, TAXI HOME CARE S5108 [facility] TRAINING 3 [facility] AREA D AREA CARE AGENCY AGENCY CLIENT PER 15 MIN NONEMERGE A0100 [facility] [place], [facility] 3 [facility]SP[facility] ENTERPRIS MANAGEMEN ATION; ES T, TAXI MISC [place] T1999 [facility] ITEMS & 3 [facility] D AREA D AREA RETAIL AGENCY AGENCY PURCHASE NOC NONEMERGE A0100 [facility] 3 [facility] TRANSPORT ENTERPRIS MANAGEMEN ATION; ES T, TAXI NONEMERGE A0100 [facility] 3 [facility] TRANSPORT ENTERPRIS MANAGEMEN ATION; ES T, TAXI NONEMERGE A0100 [facility] 3 [facility] TRANSPORT ENTERPRIS MANAGEMEN ATION; ES T, TAXI NONEMERGE A0100 [facility] 3 [facility]SP[facility] ENTERPRIS MANAGEMEN ATION; ES T, TAXI INJECTION J1040 [facility] 3 MEDICINE JENNIFER METHYLPRE & DNISOLONE ORTHOPAED ACETATE I 80 MG RADIOLOGI 91352 [facility] C EXAM 3 MEDICINE JENNIFER BOTH & KNEES ORTHOPAED STANDING I ANTEROPOS T ARTHROCEN 31272 [facility] TESIS 3 MEDICINE JENNIFER ASPIR&/IN & J MAJOR ORTHOPAED JT/BURSA I W/O US NONEMERGE A0100 [facility] 3 [facility]SP[facility] ENTERPRIS MANAGEMEN ATION; ES T, TAXI NONEMERGE A0100 [facility] [place] 3 [facility] TRANSPORT ENTERPRIS MANAGEMEN ATION; ES T, TAXI NONEMERGE A0100 [facility] [place], [facility] 3 [facility] TRANSPORT ENTERPRIS MANAGEMEN ATION; ES T, TAXI NONEMERGE A0100 [facility] [place], [facility] 3 [facility] TRANSPORT ENTERPRIS MANAGEMEN ATION; ES T, TAXI NONEMERGE A0100 [facility] [place], [facility] 3 [facility] TRANSPORT ENTERPRIS MANAGEMEN ATION; ES T, TAXI HOME CARE S5108 [facility] [address] [facility] HOME D AREA D AREA CARE AGENCY AGENCY CLIENT PER 15 MIN NONEMERGE A0100 [facility] [place], [facility] 3 [facility] TRANSPORT ENTERPRIS MANAGEMEN ATION; ES T, TAXI NONEMERGE A0100 [facility] [place], [facility] 3 [facility] TRANSPORT ENTERPRIS MANAGEMEN ATION; ES T, TAXI PROTHROMB 63883 LONG ALVES IN TIME 3 O MEDICAL O MEDICAL ASSOC LA ASSOC LA NONEMERGE A0100 [facility] [place], [facility] 3 [facility] TRANSPORT ENTERPRIS MANAGEMEN ATION; ES T, TAXI NONEMERGE A0100 [facility] [place], [facility] 3 TR[facility] TRANSPORT ENTERPRIS MANAGEMEN ATION; ES T, TAXI O2 CONC 1 E1390 [facility] 3 MEDICAL MEDICAL 85%/>02 SOMERSET S[facility]ERSET [facility] PRSC FLW RATE NONEMERGE A0100 [facility] 3 [facility] TRANSPORT ENTERPRIS MANAGEMEN ATION; ES T, TAXI NONEMERGE A0100 [facility] 3 TRANS[facility] HEALTH TRANSPORT ENTERPRIS MANAGEMEN ATION; ES T, TAXI NONEMERGE A0100 [facility] [place], [facility] 3 TRANS[facility] HEALTH TRANSPORT ENTERPRIS MANAGEMEN ATION; ES T, TAXI NONEMERGE A0100 [facility] 3 TRANS[facility] HEALTH TRANSPORT ENTERPRIS MANAGEMEN ATION; ES T, TAXI HOME CARE S5108 [facility] 3 [facility] AREA D AREA CARE AGENCY AGENCY CLIENT PER 15 MIN NONEMERGE A0100 [facility] [place], [facility] 3 [facility] TRANSPORT ENTERPRIS MANAGEMEN ATION; ES T, TAXI NONEMERGE A0100 [facility] [place], [facility] 3 TR[facility] TRANSPORT ENTERPRIS MANAGEMEN ATION; ES T, TAXI NONEMERGE A0100 [facility] 3 TRANS[facility] HEALTH TRANSPORT ENTERPRIS MANAGEMEN ATION; ES T, TAXI NONEMERGE A0100 [facility] 3 TRANS[facility] HEALTH TRANSPORT ENTERPRIS MANAGEMEN ATION; ES T, TAXI NONEMERGE A0100 [facility] 3 TRANS[facility] HEALTH TRANSPORT ENTERPRIS MANAGEMEN ATION; ES T, TAXI NONEMERGE A0100 [facility] [place], [facility] 3 TRANS[facility] HEALTH TRANSPORT ENTERPRIS MANAGEMEN ATION; ES T, TAXI NONEMERGE A0100 [facility] 3 TRANS[facility] HEALTH TRANSPORT ENTERPRIS MANAGEMEN ATION; ES T, TAXI NONEMERGE A0100 [facility] [place], [facility] 3 TRANS[facility] HEALTH TRANSPORT ENTERPRIS MANAGEMEN ATION; ES T, TAXI NONEMERGE A0100 [facility] [place], [facility] 3 TRANS[facility] HEALTH TRANSPORT ENTERPRIS MANAGEMEN ATION; ES T, TAXI HOME CARE S5108 [facility] 3 [facility] AREA D AREA CARE AGENCY AGENCY CLIENT PER 15 MIN DEBRIDEME [id number] JUSTINE HARRIS NT NAIL 3 D FOOT & DEN ANY ANKLE METHOD CENT 6/> NONEMERGE A0100 [facility] [place], [facility] 3 [facility] TRANSPORT ENTERPRIS MANAGEMEN ATION; ES T, TAXI NONEMERGE A0100 [facility] 3 TR[facility] HEALTH TRANSPORT ENTERPRIS MANAGEMEN ATION; ES T, TAXI NONEMERGE A0100 [facility] [place] 3 TRANS[facility] HE[facility] TRANSPORT ENTERPRIS MANAGEMEN ATION; ES T, TAXI PHRM Q0513 F & H F & H DISPENSIN 3 DRUG DRUG G FEE INHALATIO N RX; PER 30 DAYS ALBUTEROL J7613 F & H F & H INHAL 3 DRUG DRUG NON-CP PROD THRU DME U DOSE 1 MG O2 CONC 1 E1390 [facility] 3 MEDICAL MEDICAL 85%/>02 SOMERSET SOMERSET CONC AT [facility] PRS FLW RATE NONEMERGE A0100 [facility] [place], [facility] 3 TRANS[facility] HE[facility] TRANSPORT ENTERPRIS MANAGEMEN ATION; ES T, TAXI NONEMERGE A0100 [facility] [place], [facility] 3 TRANS[facility]ALTH TRANSPORT ENTERPRIS MANAGEMEN ATION; ES T, TAXI LIPOPROTE [id number] [facility] IN BLOOD 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 HOME D AREA D AREA CARE AGENCY AGENCY CLIENT PER 15 MIN NONEMERGE A0100 [facility], [place], [facility] 3 TRANSIT HEALTH TRANSPORT ENTERPRIS MANAGEMEN ATION; ES T, TAXI NONEMERGE A0100 [facility] [place], [facility] 3 TRANSIT HEALTH TRANSPORT ENTERPRIS MANAGEMEN ATION; ES T, TAXI NONEMERGE A0100 [facility] [place], [facility] 3 TRANSIT HEALTH TRANSPORT ENTERPRIS MANAGEMEN ATION; ES T, TAXI NONEMERGE A0100 [facility] 3 TRANSIT HEALTH TRANSPORT ENTERPRIS MANAGEMEN ATION; ES T, TAXI NONEMERGE A0100 [facility] 3 TR[facility] HEALTH TRANSPORT ENTERPRIS MANAGEMEN ATION; ES T, [facility] S5108 [facility] 3 [facility] AREA D AREA CARE AGENCY AGENCY CLIENT PER 15 MIN NONEMERGE A0100 [facility] 3 [facility] TRANSPORT ENTERPRIS MANAGEMEN ATION; ES T, T[place]I NONEMERGE A0100 [facility] TR[facility] HEALTH TRANSPORT ENTERPRIS MANAGEMEN ATION; ES T, TAXI NONEMERGE A0100 [facility] 3 [facility] HEALTH TRANSPORT ENTERPRIS MANAGEMEN ATION; ES T, TAXI NONEMERGE A0100 [facility] 3 TR[facility] HEALTH TRANSPORT ENTERPRIS MANAGEMEN ATION; ES T, TAXI O2 CONC 1 [id number] [facility] 3 MEDICAL MEDICAL 85%/>02 [place] S[facility] CONC AT [facility] FLW RATE NONEMERGE A0100 [facility] 3 [facility] HEALTH TRANSPORT ENTERPRIS MANAGEMEN ATION; ES T, TAXI NONEMERGE A0100 [facility] 3 [facility] TRANSPORT ENTERPRIS MANAGEMEN ATION; ES T, [facility] S5108 [facility] 3 [facility] AREA D AREA CARE AGENCY AGENCY CLIENT PER 15 MIN NONEMERGE A0100 [facility] 3 [facility] TRANSPORT ENTERPRIS MANAGEMEN ATION; ES T, TAXI NONEMERGE A0100 [facility] 3 [facility] HEALTH TRANSPORT ENTERPRIS MANAGEMEN ATION; ES T, TAXI NONEMERGE A0100 [facility] 3 [facility] HEALTH TRANSPORT ENTERPRIS MANAGEMEN ATION; ES T, TAXI NONEMERGE A0100 [facility] 3 [facility] TRANSPORT ENTERPRIS MANAGEMEN ATION; ES T, TAXI MISC [place] T1999 [facility] ITEMS & 3 [facility] D AREA D AREA RETAIL AGENCY AGENCY PURCHASE NOC NONEMERGE A0100 [facility] [place] 3 TRANS[facility] HEALTH TRANSPORT ENTERPRIS MANAGEMEN ATION; ES T, TAXI NONEMERGE A0100 [facility] [place] 3 TRANSIT HEALTH TRANSPORT ENTERPRIS MANAGEMEN ATION; ES T, [facility] S5108 [facility] 3 [facility] D AREA D AREA CARE AGENCY AGENCY CLIENT PER 15 MIN NONEMERGE A0100 [facility] [place] 3 TRANSIT HEALTH TRANSPORT ENTERPRIS MANAGEMEN ATION; ES T, TAXI NONEMERGE A0100 [facility] [place] 3 TRANSIT HEALTH TRANSPORT ENTERPRIS MANAGEMEN ATION; ES T, TAXI NONEMERGE A0100 [facility] [place] 3 TRANSIT HEALTH TRANSPORT ENTERPRIS MANAGEMEN ATION; ES T, TAXI PHRM Q0513 F & H F & H DISPENSIN 3 DRUG DRUG G FEE INHALATIO N RX; PER 30 DAYS ALBUTEROL J7613 F & H F & H INHAL 3 DRUG DRUG NON-CP PROD THRU DME U DOSE 1 MG NONEMERGE A0100 [facility] [place] 3 TRANSIT HEALTH TRANSPORT ENTERPRIS MANAGEMEN ATION; ES T, TAXI COLONOSCO 00115 AYANNA URENA STAR PY FLX DX 3 W/COLLJ SPEC WHEN PFRMD COLLECTIO 47910 [employer] N VENOUS 3 HOSP INC HOSP INC BLOOD VENIPUNCT URE PROTHROMB 63836 BALJIT CO BALJIT AR IN TIME 3 HOSP INC HOSP INC O2 CONC 1 E1390 [facility] [place] [facility] MEDICAL MEDICAL 85%/>02 [facility] CONC AT [employer] PRSC FLW RATE COLOREC G0121 BALJIT AR BALJIT CO CANCR 3 HOSP INC HOSP INC SCR; COLNSCPY NOT MEET HI RISK INJECTION J2250 [facility] BALJIT CO 3 HOSP INC HOSP INC MIDAZOLAM HCL PER 1 MG NONEMERGE A0100 [facility] [place] 3 TRANSIT HEALTH TRANSPORT ENTERPRIS MANAGEMEN ATION; ES T, TAXI SBSQ 54596 [facility] 3 CARDIOLOG CARE/DAY Y 25 MINUTES RADIOLOGI 04152 IZABELA CORCORAN C 3 E MAYNOR EXAMINATI RADIOLOGY ON CHEST ASSOC SINGLE VIEW FRONTAL ECG 45570 PRIETO ALBERT ROUTINE 3 EMERGENCY I RENEE ECG SERVICES W/LEAST 12 LDS I&R ONLY MYOCARDIA 39667 [facility] L SPECT 3 CARDIOLOG MULTIPLE Y STUDIES INITIAL 80306 CARMITA LEIJA STAR OBSERVATI 3 MEDICAL ON GROUP CARE/DAY [place] [address] [facility] 3 CARDIOLOG CARE/DAY Y 50 MINUTES HOME CARE S5108 Checkout10 [facility] 3 eSolar AREA D AREA CARE AGENCY AGENCY CLIENT PER 15 MIN GROUND A0425 [facility] MILEAGE 3 EMS EMS PER STATUTE MILE AMB A0427 [facility] SERVICE 3 EMS EMS ALS EMERGENCY TRANSPORT LEVEL 1 NONEMERGE A0100 [facility] 2 TRANSIT HEALTH TRANSPORT ENTERPRIS MANAGEMEN ATION; ES T, TAXI NONEMERGE A0100 [facility] 2 TRANSIT HEALTH TRANSPORT ENTERPRIS MANAGEMEN ATION; ES T, TAXI NONEMERGE A0100 [facility] 2 TRANSIT HEALTH TRANSPORT ENTERPRIS MANAGEMEN ATION; ES T, TAXI NONEMERGE A0100 [facility] 2 TRANSIT HEALTH TRANSPORT ENTERPRIS MANAGEMEN ATION; ES T, TAXI NONEMERGE A0100 [facility] 2 TRANSIT HEALTH TRANSPORT ENTERPRIS MANAGEMEN ATION; ES T, TAXI NONEMERGE A0100 [facility] 2 TRANSIT HEALTH TRANSPORT ENTERPRIS MANAGEMEN ATION; ES T, TAXI HOME CARE S5108 [employer] [facility] 2 [employer] AREA D AREA CARE AGENCY AGENCY CLIENT PER 15 MIN NONEMERGE A0100 [facility] 2 TRANSIT HEALTH TRANSPORT ENTERPRIS MANAGEMEN ATION; ES T, TAXI NONEMERGE A0100 [facility] 2 TRANSIT HEALTH TRANSPORT ENTERPRIS MANAGEMEN ATION; ES T, TAXI NONEMERGE A0100 [facility] 2 TRANSIT HEALTH TRANSPORT ENTERPRIS MANAGEMEN ATION; ES T, TAXI O2 CONC 1 E1390 [facility] 2 MEDICAL MEDICAL 85%/>02 [facility] CON[facility] AT [facility] FLW RATE NONEMERGE A0100 [facility] 2 TRANSIT HEALTH TRANSPORT ENTERPRIS MANAGEMEN ATION; ES T, TAXI NONEMERGE A0100 [facility] 2 TRANSIT HEALTH TRANSPORT ENTERPRIS MANAGEMEN ATION; ES T, TAXI NONEMERGE A0100 [facility] 2 TRANSIT HEALTH TRANSPORT ENTERPRIS MANAGEMEN ATION; ES T, TAXI HOME CARE S5108 [facility] 2 [facility] AREA D AREA CARE AGENCY AGENCY CLIENT PER 15 MIN NONEMERGE A0100 [facility] [place] 2 TRANSIT HEALTH TRANSPORT ENTERPRIS MANAGEMEN ATION; ES T, TAXI NONEMERGE A0100 [facility] 2 TRANSIT HEALTH TRANSPORT ENTERPRIS MANAGEMEN ATION; ES T, TAXI NONEMERGE A0100 [facility] 2 [facility] HEALTH TRANSPORT ENTERPRIS MANAGEMEN [place]ION; [place], [place] [address] BLA[facility] CO BALJIT CO HEAD/BRAI 2 HOSP INC HOSP INC N W/O CONTRAST MATERIAL NONEMERGE A0100 [facility] 2 TRANS[facility] HEALTH TRANSPORT ENTERPRIS MANAGEMEN ATION; ES T, TAXI COLLECTIO 29718 [facility] N VENOUS 2 O MEDICAL O MEDICAL BLOOD ASSOC LA ASSOC LA VENIPUNCT URE PROTHROMB 16179 [facility] O MEDICAL O MEDICAL ASSOC LA ASSOC LA BLOOD 09962 LONG ALVES COUNT 2 O MEDICAL O MEDICAL COMPLETE ASSOC LA ASSOC LA AUTO&AUTO DIFRNTL WBC COMPREHEN 45440 [facility] SIVE 2 O MEDICAL O MEDICAL METABOLIC ASSOC LA ASSOC LA PANEL NONEMERGE A0100 [facility] 2 TRANSIT HEALTH TRANSPORT ENTERPRIS MANAGEMEN ATION; ES T, TAXI NONEMERGE A0100 [facility] 2 TRANSIT HEALTH TRANSPORT ENTERPRIS MANAGEMEN ATION; ES T, TAXI NONEMERGE A0100 [facility] 2 TRANSIT HEALTH TRANSPORT ENTERPRIS MANAGEMEN ATION; ES T, TAXI HOME CARE S5108 [place] [address] [facility] CARE AGENCY AGENCY CLIENT PER 15 MIN NONEMERGE A0100 [facility] [place], [facility] 2 TRANSIT HEALTH TRANSPORT ENTERPRIS MANAGEMEN ATION; ES T, TAXI NONEMERGE A0100 [facility] 2 TRANSIT HEALTH TRANSPORT ENTERPRIS MANAGEMEN ATION; ES T, TAXI NONEMERGE A0100 [facility] 2 TRANSIT HEALTH TRANSPORT ENTERPRIS MANAGEMEN ATION; ES T, TAXI NONEMERGE A0100 [facility] [place], [facility] 2 TRANSIT HEALTH TRANSPORT ENTERPRIS MANAGEMEN ATION; ES T, TAXI NONEMERGE A0100 [facility] [place], [facility] 2 TRANSIT HEALTH TRANSPORT ENTERPRIS MANAGEMEN ATION; ES T, TAXI O2 CONC 1 E1390 [facility] 2 MEDICAL MEDICAL 85%/>02 [facility] CONC AT [facility] FLW RATE NONEMERGE A0100 [facility] 2 TRANSIT HEALTH TRANSPORT ENTERPRIS MANAGEMEN ATION; ES T, TAXI NONEMERGE A0100 [facility] [place], [facility] 2 TRANSIT HEALTH TRANSPORT ENTERPRIS MANAGEMEN ATION; ES T, TAXI NONEMERGE A0100 [facility] [place], [facility] 2 TRANSIT HEALTH TRANSPORT ENTERPRIS MANAGEMEN ATION; ES T, TAXI PHRM Q0513 F & H F & H DISPENSIN 2 DRUG DRUG G FEE INHALATIO N RX; PER 30 DAYS ALBUTEROL J7613 F & H F & H INHAL 2 DRUG DRUG NON-CP PROD THRU DME U DOSE 1 MG NONEMERGE A0100 [facility] [place], [facility] 2 TRANSIT HEALTH TRANSPORT ENTERPRIS MANAGEMEN ATION; ES T, TAXI NONEMERGE A0100 [facility] [place], [facility] 2 TRANSIT HEALTH TRANSPORT ENTERPRIS MANAGEMEN ATION; ES T, T[place] HOME CARE S5108 [facility] 2 [facility] AREA D AREA CARE AGENCY AGENCY CLIENT PER 15 MIN NONEMERGE A0100 [facility] 2 TRANSIT HEALTH TRANSPORT ENTERPRIS MANAGEMEN ATION; ES T, TAXI NONEMERGE A0100 [facility] [place], [facility] 2 TRANSIT HEALTH TRANSPORT ENTERPRIS MANAGEMEN ATION; ES T, TAXI NONEMERGE A0100 [facility] [place], [facility] 2 TRANSIT HEALTH TRANSPORT ENTERPRIS MANAGEMEN ATION; ES T, TAXI NONEMERGE A0100 [facility] [place], [facility] 2 TRANSIT HEALTH TRANSPORT ENTERPRIS MANAGEMEN ATION; ES T, TAXI DEBRIDEME 49491 [facility] NA[facility] 2 D FOOT & DEN ANY ANKLE METHOD CENT / NONEMERGE A0100 [facility] [place], [facility] 2 TRANSIT HEALTH TRANSPORT ENTERPRIS MANAGEMEN ATION; ES T, TAXI NONEMERGE A0100 [facility] [place], [facility] 2 TRANSIT HEALTH TRANSPORT ENTERPRIS MANAGEMEN ATION; ES T, TAXI COLLECTIO 50091 LONG ALVES N VENOUS 2 O MEDICAL O MEDICAL BLOOD ASSOC LA ASSOC LA VENIPUNCT URE PROTHROMB 22508 LONG ALVES IN TIME 2 O MEDICAL O MEDICAL ASSOC LA ASSOC LA LIPID 46773 LONG ALVES PANEL 2 O MEDICAL O MEDICAL ASSOC LA ASSOC LA COMPREHEN 62704 LONG ALVES SIVE 2 O MEDICAL O MEDICAL METABOLIC ASSOC LA ASSOC LA PANEL NONEMERGE A0100 [facility] [place], [facility] 2 TRANSIT HEALTH TRANSPORT ENTERPRIS MANAGEMEN ATION; ES T, TAXI NONEMERGE A0100 [facility] [place], [facility] 2 TRANSIT HEALTH TRANSPORT ENTERPRIS MANAGEMEN ATION; ES T, TAXI NONEMERGE A0100 [facility] [place], [facility] 2 TRANSIT HEALTH TRANSPORT ENTERPRIS MANAGEMEN ATION; ES T, TAXI NONEMERGE A0100 [facility] [place], [facility] 2 TRANSIT HEALTH TRANSPORT ENTERPRIS MANAGEMEN ATION; ES T, [place] HOME CARE S5108 [facility] 2 [facility] AREA D AREA CARE AGENCY AGENCY CLIENT PER 15 MIN NONEMERGE A0100 [facility] [place], [facility] 2 TRANSIT HEALTH TRANSPORT ENTERPRIS MANAGEMEN ATION; ES T, TAXI NONEMERGE A0100 [facility] 2 TRANSIT HEALTH TRANSPORT ENTERPRIS MANAGEMEN ATION; ES T, TAXI NONEMERGE A0100 [facility] [place], [facility] 2 TRANSIT HEALTH TRANSPORT ENTERPRIS MANAGEMEN ATION; ES T, T[place]I O2 CONC 1 E1390 [facility] [place] 2 MEDICAL MEDICAL 85%/>02 [facility] CONC AT [facility] FLW RATE PROTHROMB 15654 LONG [facility] IN TIME 2 O MEDICAL O MEDICAL ASSOC LA ASSOC LA NONEMERGE A0100 [facility] [place], [facility] 2 TRANSIT HEALTH TRANSPORT ENTERPRIS MANAGEMEN ATION; ES T, TAXI NONEMERGE A0100 [facility] [place], [facility] 2 TRANSIT HEALTH TRANSPORT ENTERPRIS MANAGEMEN ATION; ES T, TAXI NONEMERGE A0100 [facility] [place] 2 TRANSIT HEALTH TRANSPORT ENTERPRIS MANAGEMEN ATION; ES T, [place] HOME CARE S[address] AREA D AREA CARE AGENCY AGENCY CLIENT PER 15 MIN PROTHROMB 53301 [facility] IN TIME 2 O MEDICAL O MEDICAL ASSOC LA ASSOC LA NONEMERGE A0100 [facility] [place] 2 TRANSIT HEALTH TRANSPORT ENTERPRIS MANAGEMEN ATION; ES T, TAXI NONEMERGE A0100 [facility] [place], [facility] 2 TRANSIT HEALTH TRANSPORT ENTERPRIS MANAGEMEN ATION; ES T, TAXI PHRM Q0513 F & H F & H DISPENSIN 2 DRUG DRUG G FEE INHALATIO N RX; PER 30 DAYS ALBUTEROL J7613 F & H F & H INHAL 2 DRUG DRUG NON-CP PROD THRU DME U DOSE 1 MG NONEMERGE A0100 [facility] [place], [facility] 2 TRANSIT HEALTH TRANSPORT ENTERPRIS MANAGEMEN ATION; ES T, TAXI NONEMERGE A0100 [facility] [place], [facility] 2 TRANSIT HEALTH TRANSPORT ENTERPRIS MANAGEMEN ATION; ES T, TAXI NONEMERGE A0100 [facility] [place], [facility] 2 TRANSIT HEALTH TRANSPORT ENTERPRIS MANAGEMEN ATION; ES T, T[place]I NON-INVAS 60461 JOELMANNYISABEL STEVEN TIKA 2 D FOOT & DEN PHYSIOLOG ANKLE IC STUDY CENT EXTREMITY 3 LEVLS NONEMERGE A0100 [facility] 2 TRANSIT HEALTH TRANSPORT ENTERPRIS MANAGEMEN ATION; ES T, T[place]I NONEMERGE A0100 [facility] 2 TRANSIT HEALTH TRANSPORT ENTERPRIS MANAGEMEN ATION; ES T, [place] HOME CARE S5108 [facility] TRAINING 2 [facility] AGENCY AGENCY CLIENT PER 15 MIN NONEMERGE A0100 [facility] 2 TRANSIT HEALTH TRANSPORT ENTERPRIS MANAGEMEN ATION; ES T, TAXI NONEMERGE A0100 [facility] 2 TRANSIT HEALTH TRANSPORT ENTERPRIS MANAGEMEN ATION; ES T, TAXI NONEMERGE A0100 [facility] [place], [facility] 2 TRANSIT HEALTH TRANSPORT ENTERPRIS MANAGEMEN ATION; ES T, T[place]I O2 CONC 1 E1390 [facility] [place] 2 MEDICAL MEDICAL 85%/>02 [facility] CONC AT [facility] FLW RATE NONEMERGE A0100 [facility] 2 TRANSIT HEALTH TRANSPORT ENTERPRIS MANAGEMEN ATION; ES T, T[place]I NORMAL A4256 LIB[employer] LIBERTY LOW AND 2 MEDICAL MEDICAL HIGH SUPPLY SUPPLY [employer] R SOLUTION/ CHIPS LANCETS A4259 LIBERTY LIBERTY PER BOX 2 MEDICAL MEDICAL OF 100 SUPPLY SUPPLY [employer] BLD GLU A4253 LIBERTY LIBERTY TEST/REAG 2 MEDICAL MEDICAL T STRIPS SUPPLY SUPPLY HOME [employer] GLU MON-50 NONEMERGE A0100 [facility] 2 TRANS[facility] HEALTH TRANSPORT ENTERPRIS MANAGEMEN ATION; ES T, T[place]I NONEMERGE A0100 [facility] 2 TRANSIT HEALTH TRANSPORT ENTERPRIS MANAGEMEN ATION; ES T, TAXI NONEMERGE A0100 [facility] 2 TRANSIT HEALTH TRANSPORT ENTERPRIS MANAGEMEN ATION; ES T, T[place] HOME CARE S5108 [facility] TRA[facility] 2 [facility] AGENCY AGENCY CLIENT PER 15 MIN NONEMERGE A0100 [facility] 2 TRANSIT HEALTH TRANSPORT ENTERPRIS MANAGEMEN ATION; ES T, TAXI NONEMERGE A0100 [facility] 2 TRANSIT HEALTH TRANSPORT ENTERPRIS MANAGEMEN ATION; ES T, TAXI NONEMERGE A0100 [facility] [place], [facility] 2 TRANSIT HEALTH TRANSPORT ENTERPRIS MANAGEMEN ATION; ES T, TAXI NONEMERGE A0100 [facility] 2 TRANSIT HEALTH TRANSPORT ENTERPRIS MANAGEMEN ATION; ES T, TAXI NONEMERGE A0100 [facility] [place], [facility] 2 TRANSIT HEALTH TRANSPORT ENTERPRIS MANAGEMEN ATION; ES T, T[place]I PROTHROMB 16233 LONG ALVES IN TIME 2 O MEDICAL O MEDICAL ASSOC LA ASSOC LA NONEMERGE A0100 [facility] [place], [facility] 2 TRANSIT HEALTH TRANSPORT ENTERPRIS MANAGEMEN ATION; ES T, TAXI NONEMERGE A0100 [facility] [place], [facility] 2 TRANSIT HEALTH TRANSPORT ENTERPRIS MANAGEMEN ATION; ES T, TAXI NONEMERGE A0100 [facility] [place], [facility] 2 TRANSIT HEALTH TRANSPORT ENTERPRIS MANAGEMEN ATION; ES T, TAXI NONEMERGE A0100 [facility] [place], [facility] 2 TRANSIT HEALTH TRANSPORT ENTERPRIS MANAGEMEN ATION; ES T, [place] HOME CARE S[address] AREA D AREA CARE AGENCY AGENCY CLIENT PER 15 MIN PROTHROMB 96919 LONG ALVES IN TIME 2 O MEDICAL O MEDICAL ASSOC LA ASSOC LA NONEMERGE A0100 [facility] [place], [facility] 2 TRANSIT HEALTH TRANSPORT ENTERPRIS MANAGEMEN ATION; ES T, TAXI NONEMERGE A0100 [facility] [place], [facility] 2 TRANSIT HEALTH TRANSPORT ENTERPRIS MANAGEMEN ATION; ES T, TAXI NONEMERGE A0100 [facility] [place], [facility] 2 TRANSIT HEALTH TRANSPORT ENTERPRIS MANAGEMEN ATION; ES T, [place] O2 CONC 1 E1390 [facility] MEDICAL MEDICAL 85%/>02 [facility] CONC AT [facility] FLW RATE NONEMERGE A0100 [facility] [place], [facility] 2 TRANSIT HEALTH TRANSPORT ENTERPRIS MANAGEMEN ATION; ES T, TAXI NONEMERGE A0100 [facility] 2 TRANSIT HEALTH TRANSPORT ENTERPRIS MANAGEMEN ATION; ES T, TAXI NONEMERGE A0100 [facility] 2 TRANSIT HEALTH TRANSPORT ENTERPRIS MANAGEMEN ATION; ES T, [place] HOME CARE S[address] AREA CARE AGENCY AGENCY CLIENT PER 15 MIN ECG 52260 CHIDI CARDENASMAY ROUTINE 2 CARDIOLOG CARDIOLOG ECG Y Y W/LEAST 12 LDS W/I&R NONEMERGE A0100 [facility] 2 TRANS[facility] HEALTH TRANSPORT ENTERPRIS MANAGEMEN ATION; ES T, TAXI NONEMERGE A0100 [facility] 2 TRANSIT HEALTH TRANSPORT ENTERPRIS MANAGEMEN ATION; ES T, TAXI NONEMERGE A0100 [facility] 2 TRANSIT HEALTH TRANSPORT ENTERPRIS MANAGEMEN ATION; ES T, TAXI NONEMERGE A0100 [facility] 2 TRANSIT HEALTH TRANSPORT ENTERPRIS MANAGEMEN ATION; ES T, TAXI NONEMERGE A0100 [facility] 2 TRANSIT HEALTH TRANSPORT ENTERPRIS MANAGEMEN ATION; ES T, TAXI PROTHROMB 08912 [facility] IN TIME 2 O MEDICAL O MEDICAL ASSOC LA ASSOC LA NONEMERGE A0100 [facility] 2 TRANS[facility] HEALTH TRANSPORT ENTERPRIS MANAGEMEN ATION; ES T, TAXI NONEMERGE A0100 [facility] 2 TRANSIT HEALTH TRANSPORT ENTERPRIS MANAGEMEN ATION; ES T, TAXI ECHO 55859 CHIDI KIMBALLA TTHRC R-T 2 CARDIOLOG 2D Y W/WOM-MOD E COMPL SPEC&COLR D HOME CARE S5108 [facility] 2 [facility] AREA CARE AGENCY AGENCY CLIENT PER 15 MIN NONEMERGE A0100 [facility] [place], [facility] 2 TRANSIT HEALTH TRANSPORT ENTERPRIS MANAGEMEN ATION; ES T, TAXI NONEMERGE A0100 [facility] 2 TRANSIT HEALTH TRANSPORT ENTERPRIS MANAGEMEN ATION; ES T, TAXI NONEMERGE A0100 [facility] 2 TRANSIT HEALTH TRANSPORT ENTERPRIS MANAGEMEN ATION; ES T, TAXI NONEMERGE A0100 [facility] 2 TRANSIT HEALTH TRANSPORT ENTERPRIS MANAGEMEN ATION; ES T, T[place]I O2 CONC 1 E1390 [facility] [place] 2 MEDICAL MEDICAL 85%/>02 [facility] CONC AT [facility] FLW RATE NONEMERGE A0100 [facility] 2 TRANSIT HEALTH TRANSPORT ENTERPRIS MANAGEMEN ATION; ES T, TAXI NONEMERGE A0100 [facility] 2 TRANSIT HEALTH TRANSPORT ENTERPRIS MANAGEMEN ATION; ES T, [place] HOME CARE S5108 [facility] TRAINING 2 [facility] HOME D AREA D AREA CARE AGENCY AGENCY CLIENT PER 15 MIN MYOCARDIA 67510 ARGENISET FERNANDEZ JAY JAY L SPECT 2 CARDIOLOG MULTIPLE Y STUDIES INJECTION J1245 CHIDI FERNANDEZ JAY JAY 2 CARDIOLOG DIPYRIDAM Y OLE PER 10 MG TECHNETIU A9500 ARGENISSHERIDAN FERNANDEZ JAY JAY M TC-99M 2 CARDIOLOG SESTAMIBI Y DX PER STUDY DOSE NONEMERGE A0100 [facility] 2 [facility] ENTERPRIS MANAGEMEN ATION; ES T, TAXI ECG 30991 CHIDI SLATERH JAY JAY ROUTINE 2 CARDIOLOG ECG Y W/LEAST 12 LDS W/I&R INJECTION J1100 ESSIE CALL 2 DEXAMETHO SONE SODIUM PHOSPHATE 1 MG ARTHROCEN 43150 ESSIE CALL TESIS 2 ASPIR&/IN J MAJOR JT/BURSA W/O US NONEMERGE A0100 [facility] 2 [facility] TRANSPORT ENTERPRIS MANAGEMEN ATION; ES T, TAXI NONEMERGE A0100 [facility] 2 TRANSIT HEALTH TRANSPORT ENTERPRIS MANAGEMEN ATION; ES T, TAXI NONEMERGE A0100 [facility] 2 TRANS[facility] HEALTH TRANSPORT ENTERPRIS MANAGEMEN ATION; ES T, [place] [address] [facility] JT LOWER 2 RABIA EXTREM RADIOLOGY W/O ASSOC CONTRAST MATRL NONEMERGE A0100 [facility] 2 [facility] TRANSPORT ENTERPRIS MANAGEMEN ATION; ES T, TAXI NONEMERGE A0100 [facility] 2 TRANSIT HEALTH TRANSPORT ENTERPRIS MANAGEMEN ATION; ES T, TAXI NONEMERGE A0100 [facility] [place] 2 TRANSIT HEALTH TRANSPORT ENTERPRIS MANAGEMEN ATION; ES T, TAXI PROTHROMB 09711 LONG ALVES IN TIME 2 O MEDICAL O MEDICAL ASSOC LA ASSOC LA HOME CARE S5108 [facility] TRAINING 2 [facility] D AREA D AREA CARE AGENCY AGENCY CLIENT PER 15 MIN NONEMERGE A0100 [facility] 2 TRANSIT HEALTH TRANSPORT ENTERPRIS MANAGEMEN ATION; ES T, TAXI NONEMERGE A0100 [facility] 2 TRANSIT HEALTH TRANSPORT ENTERPRIS MANAGEMEN ATION; ES T, TAXI NONEMERGE A0100 [facility] 2 TRANSIT HEALTH TRANSPORT ENTERPRIS MANAGEMEN ATION; ES T, TAXI PROTHROMB 15880 LONG ALVES IN TIME 2 O MEDICAL O MEDICAL ASSOC LA ASSOC LA DISPBL T4535 PERSONAL PERSONAL LINER/JARED 2 TOUCH TOUCH ELD/GUARD HOME JAIL CARE /PAD/UNDG OF OF RMNT INCONT EA O2 CONC 1 E1390 [facility] [place] [facility] MEDICAL MEDICAL 85%/>02 [facility] CONC AT [facility] [place] [address] [facility] TROPONIN 2 [facility] QUANTITAT D D T[facility]A [facility] CREATINE 42835 [facility] KINASE 2 [facility] TOTAL D D [facility] CREATINE 21672 [facility] KINASE MB 2 [facility] FRACTION D D ONLY [facility] RADIOLOGI 44090 [facility] C 2 [facility] EXAMINATI D D ON CHEST [facility] SINGLE HOS HOS VIEW FRONTAL COLLECTIO 39353 [facility] N VENOUS 2 [facility] BLOOD D D VENIPUNCT REG[facility]AL [facility] URE HOS HOS PROTHROMB 44578 [facility] IN TIME 2 [facility] D D [facility] BLOOD 70258 [facility] COUNT 2 [facility] [place] COMPLETE D D AUTO&AUTO REGIONAL REG[facility]AL DIFRNTL HOS HOS WBC GROUND A0425 [facility] MILEAGE 2 EMS EMS PER STATUTE MILE ECG [id number] [facility] ROUTINE 2 [facility] ECG D D W/LEAST REGIONAL REGIONAL 12 LDS HOS HOS TRCG ONLY W/O I&R THER 32459 [facility] PROPH/DX 2 [facility] NJX IV D D PUSH REGIONAL REGIONAL SINGLE/1S HOS HOS T SBST/DRUG ECG 05832 [facility] ROUTINE 2 EMERGENCY KOL ECG SERVICES W/LEAST 12 LDS I&R ONLY COMPREHEN 72042 [facility] SIVE 2 [place] METABOLIC D D PANEL [facility] AMB A0427 [facility] SERVICE 2 EMS EMS ALS EMERGENCY TRANSPORT LEVEL 1 NONEMERGE A0100 [facility] NCY 2 TRANSIT HEALTH TRANSPORT ENTERPRIS MANAGEMEN ATION; ES T, TAXI PROTHROMB [id number] [facility] IN TIME 2 O MEDICAL O MEDICAL ASSOC LA ASSOC LA HOME CARE S5108 [facility] TRAINING 2 [facility] HOME D AREA D AREA CARE AGENCY AGENCY CLIENT PER 15 MIN HOME CARE S5108 [facility] TRAINING 2 [facility] HOME D AREA D AREA CARE AGENCY AGENCY CLIENT PER 15 MIN NONEMERGE A0100 [facility] NCY 2 [facility] HEALTH TRANSPORT ENTERPRIS MANAGEMEN ATION; ES T, TAXI NONEMERGE A0100 [facility] NCY 2 [facility] TRANSPORT ENTERPRIS MANAGEMEN ATION; ES T, TAXI NEBULIZER [id number] [facility] ERAZO WITH 2 MEDICAL MEDICAL COMPRESSO EQUIPMENT EQUIPMENT R GROUND A0425 [facility] MILEAGE 2 EMS EMS PER STATUTE MILE NONEMERG A0120 RURAL RURAL TRNSPRT: 2 TRANSIT TRANSIT MINI-BUS ENTERPRIS ENTERPRIS MTN ES ES AREA/OTH SYS AMBULANCE A0429 [facility] SERVICE 2 EMS EMS BLS EMERGENCY TRANSPORT STRAPPING 36512 PRIETO KIMBLE KNEE 2 EMERGENCY GRE SERVICES RADIOLOGI 08096 [facility] C EXAM 2 [facility] KNEE D D COMPLETE REGIONAL REGIONAL 4/MORE HOS HOS VIEWS RADEX 44309 [facility] FOREARM 2 2 [facility] VIEWS D D REGIONAL REGIONAL HOS HOS THROMBOPL 60460 [facility] ASTIN 2 HOSP INC HOSP INC TIME PARTIAL PLASMA/WH OLE BLOOD RADIOLOGI 08562 [facility] C 2 HOSP INC HOSP INC EXAMINATI ON CHEST SINGLE VIEW FRONTAL CREATINE 92424 [facility] KINASE MB 2 HOSP INC HOSP INC FRACTION ONLY CREATINE 78991 [facility] KINASE 2 HOSP INC HOSP INC TOTAL NATRIURET 49267 [facility] IC [facility] [place] [address] [facility] TROPONIN 2 HOSP INC HOSP INC QUANTITAT TIKA BLOOD 12361 [facility] COUNT 2 HOSP INC HOSP INC COMPLETE AUTO&AUTO DIFRNTL WBC PROTHROMB 46182 [facility] IN TIME 2 HOSP INC HOSP INC COLLECTIO 33349 [facility] N VENOUS 2 HOSP INC HOSP INC BLOOD VENIPUNCT URE GROUND A0425 [facility] MILEAGE 2 EMS EMS PER STATUTE MILE COMPREHEN 82631 [facility] SIVE 2 HOSP INC HOSP INC METABOLIC PANEL ECG 05994 [facility] ROUTINE 2 COVERAGE LYN ECG W/LEAST CORPORATI 12 LDS I&R ONLY ECG 28516 [facility] ROUTINE 2 HOSP INC HOSP INC ECG W/LEAST 12 LDS TRCG ONLY W/O I&R NONINVASI 67910 [facility] VE 2 HOSP INC HOSP INC EAR/PULSE OXIMETRY SINGLE DETER AMB [id number] [facility] SERVICE 2 EMS EMS ALS EMERGENCY TRANSPORT LEVEL 1 HOME CARE S5108 [facility] TRAINING 2 [facility] [place] D AREA D AREA CARE AGENCY AGENCY CLIENT PER 15 MIN SBSQ 85154 [facility] 2 MEDICAL CARE/DAY GROUP 15 [facility] MINUTES SBSQ 60845 [facility] 2 MEDICAL SCO CARE/DAY GROUP 15 [facility] MINUTES SBSQ 22932 [facility] 2 MEDICAL CARE/DAY GROUP 25 [facility] SBSQ 56161 [facility] 2 MEDICAL CARE/DAY GROUP 25 [facility] MINUTES ARTHROCEN 94581 MICHELLE MARTINEZ TESIS 2 JR CARL[facility] VINCENT ASPIR&/IN J MAJOR JT/BURSA W/O US RADIOLOGI 08276 IZABELA VEGA C 2 D. EXAMINATI RADIOLOGY ON KNEE ASSOC 1/2 VIEWS RADIOLOGI 00382 MICHELLE MARTINEZ C EXAM 2 JR CARLTON VINCENT KNEE COMPLETE 4/MORE VIEWS O2 CONC 1 E1390 [facility] DEL PORT 2 MEDICAL MEDICAL 85%/>02 LLC LLC [facility] FLW RATE SBSQ 74861 [facility] 2 MEDICAL SCO CARE/DAY GROUP 25 [facility] MINUTES RADIOLOGI 98222 IZABELA Tyler EXAM 2 KNEE RADIOLOGY COMPLETE ASSOC 4/MORE VIEWS INITIAL 40945 [facility] 2 MEDICAL EDW CARE/DAY [facility] 41873 LONG ALFARO C 2 O MEDICAL JUAN EXAMINATI ON KNEE ASSOCIATE 1/2 VIEWS PROTHROMB 91021 LONG ALVES IN TIME 2 O MEDICAL O MEDICAL ASSOC LA ASSOC LA NONEMERGE A0100 [facility] 2 TRANSIT HEALTH TRANSPORT ENTERPRIS MANAGEMEN ATION; ES T, TAXI NONEMERGE A0100 [facility] 2 TRANSIT HEALTH TRANSPORT ENTERPRIS MANAGEMEN ATION; ES T, TAXI PROTHROMB 66500 JARR[facility]ZEL LONG IN TIME 2 O MEDICAL O MEDICAL ASSOC LA ASSOC LA HOME CARE S5108 [facility] TRAINING 2 [facility] F[facility] HOME D AREA D AREA CARE AGENCY AGENCY CLIENT PER 15 MIN NONEMERGE A0100 [facility] 2 [facility]ANSIT HEALTH TRANSPORT ENTERPRIS MANAGEMEN ATION; ES T, TAXI SKIN TEST 41734 [facility] 2 CONUNTY CONUNTY [facility] SIS DEPARTM DEPARTM INTRADERM AL NONEMERGE A0100 [facility] 2 TRANSIT HEALTH TRANSPORT ENTERPRIS MANAGEMEN ATION; ES T, TAXI NONEMERGE A0100 [facility] TR[facility] HEALTH TRANSPORT ENTERPRIS MANAGEMEN ATION; ES T, TAXI NEBULIZER E0570 [facility] WITH 2 MEDICAL MEDICAL COMPRESSO EQUIPMENT EQUIPMENT R NONEMERGE A0100 [facility] 2 TRANSIT HEALTH TRANSPORT ENTERPRIS MANAGEMEN ATION; ES T, TAXI LIPID 95503 LONG [facility] PANEL 2 O MEDICAL O MEDICAL ASSOC LA ASSOC LA COMPREHEN 31900 [facility] O MEDICAL O MEDICAL METABOLIC ASSOC LA ASSOC LA PANEL PROTHROMB 09286 LONG ALVES IN TIME 2 O MEDICAL O MEDICAL ASSOC LA ASSOC LA BLOOD 85521 [facility] COUNT 2 O MEDICAL O MEDICAL COMPLETE ASSOC LA ASSOC LA AUTO&AUTO DIFRNTL WBC COLLECTIO 18014 [facility] N VENOUS 2 O MEDICAL O MEDICAL BLOOD ASSOC LA ASSOC LA VENIPUNCT URE HEMOGLOBI 52917 [facility] N 2 O MEDICAL O MEDICAL GLYCOSYLA ASSOC [place] [address] [facility] TH[facility] O MEDICAL O MEDICAL STIMULATI ASSOC LA ASSOC LA NG HORMONE TSH NONEMERGE A0100 [facility] 2 TRANSIT HEALTH TRANSPORT ENTERPRIS MANAGEMEN ATION; ES T, TAXI NONEMERGE A0100 [facility] 2 TRANSIT HEALTH TRANSPORT ENTERPRIS MANAGEMEN ATION; ES T, TAXI NONEMERGE A0100 [facility] 2 TRANSIT HEALTH TRANSPORT ENTERPRIS MANAGEMEN ATION; ES T, TAXI NONEMERGE A0100 [facility] 2 TRANSIT HEALTH TRANSPORT ENTERPRIS MANAGEMEN ATION; ES T, TAXI HOME CARE S5108 [facility] TRAINING 2 [facility] D AREA D AREA CARE AGENCY AGENCY CLIENT PER 15 MIN PROTHROMB 91481 [facility] IN TIME 2 O MEDICAL O MEDICAL ASSOC LA ASSOC LA NONEMERGE A0100 [facility] 2 TRANSIT HEALTH TRANSPORT ENTERPRIS MANAGEMEN ATION; ES T, TAXI NONEMERGE A0100 [facility] 2 TRANSIT HEALTH TRANSPORT ENTERPRIS MANAGEMEN ATION; ES T, TAXI O2 CONC 1 E1390 [facility] [place] 2 MEDICAL MEDICAL 85%/>02 [facility] LLC [facility] FLW RATE PROTHROMB 26774 [facility] IN TIME 2 O MEDICAL O MEDICAL ASSOC LA ASSOC LA NONEMERGE A0100 [facility] 2 TRANSIT HEALTH TRANSPORT ENTERPRIS MANAGEMEN ATION; ES T, TAXI NONEMERGE A0100 [facility] 2 TRANSIT HEALTH TRANSPORT ENTERPRIS MANAGEMEN ATION; ES T, TAXI HOME CARE S5108 [facility] 2 [facility] D AREA D AREA CARE AGENCY AGENCY CLIENT PER 15 MIN NONEMERGE A0100 [facility] 2 TRANSIT HEALTH TRANSPORT ENTERPRIS MANAGEMEN ATION; ES T, TAXI NONEMERGE A0100 [facility] 2 TRANSIT HEALTH TRANSPORT ENTERPRIS MANAGEMEN ATION; ES T, TAXI NONEMERGE A0100 [facility] 2 TRANSIT HEALTH TRANSPORT ENTERPRIS MANAGEMEN ATION; ES T, TAXI NEBULIZER E0570 [facility] WITH 2 MEDICAL MEDICAL COMPRESSO EQUIPMENT [facility]QU[facility] 57317 [place] [facility] DISCHARGE 2 MEDICAL [facility] MANAGEMEN [place] T 30 MIN/< SBSQ 22318 [facility] 2 CARDIOLOG CARE/DAY Y 25 MINUTES DUPLEX 34498 IZABELA WOOLDRIDG SCAN 2 E [facility] EXTRACRAN RADIOLOGY IAL ART ASSOC COMPL BI STUDY MRI BRAIN 03773 IZABELA SHABBIR BRAIN 2 RABIA STEM W/O RADIOLOGY CONTRAST ASSOC MATERIAL INITIAL 57022 [facility] 2 MEDICAL EDW CARE/DAY GROUP 50 [place] MINUTES MYOCARDIA 09565 [facility] L SPECT 2 CARDIOLOG MULTIPLE Y STUDIES GROUND A0425 [facility] MILEAGE 2 EMS EMS PER STATUTE MILE ECHO 30221 [facility] TTHRC R-T 2 CARDIOLOG 2D Y W/WOM-MOD E COMPL SPEC&COLR D INITIAL 99187 [facility] 2 CARDIOLOG CARE/DAY Y 70 MINUTES AMB A0427 [facility] SERVICE 2 EMS EMS ALS EMERGENCY TRANSPORT LEVEL 1 COMPREHEN 37258 [facility] SIVE 2 HOSP INC HOSP INC METABOLIC PANEL ECG 58386 EMERG[facility] SHANKS ROUTINE 2 COVERAGE LYN ECG W/LEAST CORPORATI 12 LDS I&R ONLY NONINVASI 42200 [facility] VE 2 HOSP INC HOSP INC EAR/PULSE OXIMETRY SINGLE DETER ECG 63441 [facility] ROUTINE 2 HOSP INC HOSP INC ECG W/LEAST 12 LDS TRCG ONLY W/O I&R THERAPEUT 30991 [facility] IC 2 HOSP INC HOSP INC INJECTION IV PUSH EACH NEW DRUG THER 81163 [facility] PROPH/DX 2 HOSP INC HOSP INC NJX IV PUSH SINGLE/1S T SBST/DRUG INJECTION J2270 [facility] MORPHINE 2 HOSP INC HOSP INC SULFATE UP TO 10 MG RADIOLOGI 01518 [facility] C 2 HOSP INC HOSP INC EXAMINATI ON CHEST SINGLE VIEW FRONTAL THROMBOPL 47039 [facility] ASTIN 2 HOSP INC HOSP INC TIME PARTIAL PLASMA/[place] [address] [facility] TROPONIN 2 HOSP INC HOSP INC QUANTITAT TIKA CREATINE 18024 [facility] KINASE 2 HOSP INC HOSP INC TOTAL CREATINE 37835 [facility] KINASE MB 2 HOSP INC HOSP INC FRACTION ONLY COLLECTIO 18884 [facility] N VENOUS 2 HOSP INC HOSP INC BLOOD VENIPUNCT URE BLOOD 73499 [facility] COUNT 2 HOSP INC HOSP INC COMPLETE AUTO&AUTO DIFRNTL WBC PROTHROMB 36667 [facility] IN TIME 2 HOSP INC HOSP INC NONEMERGE A0100 [facility] 2 TRANSIT HEALTH TRANSPORT ENTERPRIS MANAGEMEN ATION; ES T, TAXI NONEMERGE A0100 [facility] 2 TRANSIT HEALTH TRANSPORT ENTERPRIS MANAGEMEN ATION; ES T, TAXI NONEMERGE A0100 [facility] 2 TRANSIT HEALTH TRANSPORT ENTERPRIS MANAGEMEN ATION; ES T, TAXI HOME CARE S5108 [facility] 2 [facility] D AREA D AREA CARE AGENCY AGENCY CLIENT PER 15 MIN NONEMERGE A0100 [facility] 2 TRANSIT HEALTH TRANSPORT ENTERPRIS MANAGEMEN ATION; ES T, TAXI NONEMERGE A0100 [facility] [place] 2 TRANSIT HEALTH TRANSPORT ENTERPRIS MANAGEMEN ATION; ES T, TAXI NONEMERGE A0100 [facility] 2 TRANSIT HEALTH TRANSPORT ENTERPRIS MANAGEMEN ATION; ES T, TAXI PROTHROMB 75141 [facility] IN TIME 2 O MEDICAL O MEDICAL ASSOC LA ASSOC LA O2 CONC 1 E1390 [facility] 2 MEDICAL MEDICAL 85%/>02 [facility] FLW RATE NONEMERGE A0100 [facility] 2 TRANSIT HEALTH TRANSPORT ENTERPRIS MANAGEMEN ATION; ES T, TAXI NONEMERGE A0100 [facility] 2 TRANSIT HEALTH TRANSPORT ENTERPRIS MANAGEMEN ATION; ES T, TAXI NONEMERGE A0100 [facility] 2 TRANSIT HEALTH TRANSPORT ENTERPRIS MANAGEMEN ATION; ES T, TAXI PROTHROMB 03043 LONG ALVES IN TIME 2 O MEDICAL O MEDICAL ASSOC LA ASSOC LA NONEMERGE A0100 [facility] 2 TRANSIT HEALTH TRANSPORT ENTERPRIS MANAGEMEN ATION; ES T, TAXI NONEMERGE A0100 [facility]URAL [facility] 2 TRANSIT HEALTH TRANSPORT ENTERPRIS MANAGEMEN ATION; ES T, TAXI HOME CARE S5108 [facility] TRAINING 2 [facility] D AREA D AREA CARE AGENCY AGENCY CLIENT PER 15 MIN NONEMERGE A0100 [facility] 2 TRANSIT TRANSIT TRANSPORT ENTERPRIS ENTERPRIS ATION; ES ES TAXI NEBULIZER E0570 [facility] WITH 2 MEDICAL MEDICAL COMPRESSO EQUIPMENT EQUIPMENT R PROTHROMB 85918 [facility] IN TIME 2 O MEDICAL O MEDICAL ASSOC LA ASSOC LA NONEMERGE A0100 [facility] 2 TRANSIT TRANSIT TRANSPORT ENTERPRIS ENTERPRIS ATION; ES ES TAXI NONEMERGE A0100 [facility] 2 TRANSIT TRANSIT TRANSPORT ENTERPRIS ENTERPRIS ATION; ES ES TAXI NONEMERGE A0100 [facility] 2 TRANSIT TRANSIT TRANSPORT ENTERPRIS ENTERPRIS ATION; ES ES TAXI NONEMERGE A0100 [facility] 2 TRANSIT TRANSIT TRANSPORT ENTERPRIS ENTERPRIS ATION; ES ES TAXI SPRING-PO A4258 [facility] WERED 2 MEDICAL METAL COATER SUPPLY SUPPLY FOR LANCET EACH BLD GLU A4253 [facility] TEST/REAG 2 MEDICAL MEDICAL T STRIPS SUPPLY SUPPLY HOME BLD GLU MON-50 LANCETS A4259 [facility] PER BOX 2 MEDICAL MEDICAL OF 100 SUPPLY SUPPLY NONEMERGE A0100 [facility] 2 TRANSIT TRANSIT TRANSPORT ENTERPRIS ENTERPRIS ATION; ES ES TAXI INCONTINE T4541 PERSONAL PERSONAL NCE 2 TOUCH TOUCH PRODUCT HOME JAIL CARE DISPOSABL OF OF E UNDPAD LARGE EA DISPBL T4535 PERSONAL PERSONAL LINER/JARED 2 TOUCH TOUCH ELD/GUARD HOME JAIL CARE /PAD/UNDG OF OF RMNT INCONT EA HOME CARE S5108 [facility] TRAINING [address] [facility] HOME D AREA D AREA CARE AGENCY AGENCY CLIENT PER 15 MIN NONEMERGE A0100 [facility] 2 TRANSIT TRANSIT TRANSPORT ENTERPRIS ENTERPRIS ATION; ES ES TAXI NONEMERGE A0100 [facility] 2 TRANSIT TRANSIT TRANSPORT ENTERPRIS ENTERPRIS ATION; ES ES TAXI NONEMERGE A0100 [facility] 2 TRANSIT TRANSIT TRANSPORT ENTERPRIS ENTERPRIS ATION; ES ES TAXI O2 CONC 1 E1390 [facility] 2 MEDICAL MEDICAL 85%/>02 [facility] FLW RATE NONEMERGE A0100 [facility] 2 TRANSIT TRANSIT TRANSPORT ENTERPRIS ENTERPRIS ATION; ES ES TAXI NONEMERGE A0100 [facility] 2 TRANSIT TRANSIT TRANSPORT ENTERPRIS ENTERPRIS ATION; ES ES TAXI NONEMERGE A0100 [facility] 2 TRANSIT TRANSIT TRANSPORT ENTERPRIS ENTERPRIS ATION; ES ES TAXI HOME CARE S5108 [facility] TRAINING 2 [facility] AREA D AREA CARE AGENCY AGENCY CLIENT PER 15 MIN NONEMERGE A0100 [facility] 2 TRANSIT TRANSIT TRANSPORT ENTERPRIS ENTERPRIS ATION; ES ES TAXI NONEMERGE A0100 [facility] 2 TRANSIT TRANSIT TRANSPORT ENTERPRIS ENTERPRIS ATION; ES ES TAXI LIPID 01845 [facility] PANEL 2 O MEDICAL O MEDICAL ASSOC LA ASSOC LA COMPREHEN 90809 [facility] SIVE 2 O MEDICAL O MEDICAL METABOLIC ASSOC LA ASSOC LA PANEL HEMOGLOBI 50082 [facility] N 2 O MEDICAL O MEDICAL GLYCOSYLA ASSOC LA ASSOC LA DOTTIE A1C CREATININ 71422 LAB GALA LAB GALA E OTHER 2 AMERIC 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 [address] [facility] THYROID 2 O MEDICAL O MEDICAL STIMULATI ASSOC LA ASSOC LA NG HORMONE TSH ALBUMIN 49668 LAB GALA LAB GALA URINE 2 AMERIC AMERIC MICROALBU HOLDING HOLDING MIN QUANTIATI VE COLLECTIO 30692 [facility] N VENOUS 2 O MEDICAL O MEDICAL BLOOD ASSOC LA ASSOC LA VENIPUNCT URE PROTHROMB 77670 LONG [facility]ES IN TIME 2 O MEDICAL O MEDICAL ASSOC LA ASSOC LA BLOOD 48691 LONG [facility]ES COUNT 2 O MEDICAL O MEDICAL COMPLETE ASSOC LA ASSOC LA AUTO&AUTO DIFRNTL WBC NONEMERGE A0100 [facility] 2 TRANSIT TRANSIT TRANSPORT ENTERPRIS ENTERPRIS ATION; ES ES TAXI NONEMERGE A0100 [facility] 2 TRANSIT TRANSIT TRANSPORT ENTERPRIS ENTERPRIS ATION; ES ES TAXI NONEMERGE A0100 [facility] 2 TRANSIT TRANSIT TRANSPORT ENTERPRIS ENTERPRIS ATION; ES ES TAXI NONEMERGE A0100 [facility] 2 TRANSIT TRANSIT TRANSPORT ENTERPRIS ENTERPRIS ATION; ES ES TAXI NONEMERGE A0100 [facility] 2 TRANSIT TRANSIT TRANSPORT ENTERPRIS ENTERPRIS ATION; ES ES TAXI NONEMERGE A0100 [facility] 2 TRANSIT TRANSIT TRANSPORT ENTERPRIS ENTERPRIS ATION; ES ES TAXI HOME CARE S5108 [facility] [address] [facility] HOME D AREA D AREA CARE AGENCY AGENCY CLIENT PER 15 MIN NONEMERGE A0100 [facility] 2 TRANSIT TRANSIT TRANSPORT ENTERPRIS ENTERPRIS ATION; ES ES TAXI NONEMERGE A0100 [facility] 2 TRANSIT TRANSIT TRANSPORT ENTERPRIS ENTERPRIS ATION; ES ES TAXI O2 CONC 1 E1390 [facility] MEDICAL MEDICAL 85%/>02 [facility] FLW RATE NONEMERGE A0100 [facility] 2 TRANSIT TRANSIT TRANSPORT ENTERPRIS ENTERPRIS ATION; ES ES TAXI NONEMERGE A0100 [facility] 2 TRANSIT TRANSIT TRANSPORT ENTERPRIS ENTERPRIS ATION; ES ES TAXI NONEMERGE A0100 [facility] 2 TRANSIT TRANSIT TRANSPORT ENTERPRIS ENTERPRIS ATION; ES ES TAXI HOME CARE S5108 [facility] 2 [facility] D AREA D AREA CARE AGENCY AGENCY CLIENT PER 15 MIN NONEMERGE A0100 [facility] 1 TRANSIT HEALTH TRANSPORT ENTERPRIS MANAGEMEN ATION; ES T TAXI NONEMERGE A0100 [facility] TRANSIT HEALTH TRANSPORT ENTERPRIS MANAGEMEN ATION; ES T TAXI NONEMERGE A0100 [facility] 1 TRANSIT HEALTH TRANSPORT ENTERPRIS MANAGEMEN ATION; ES T TAXI NONEMERGE A0100 [facility] 1 TRANSIT HEALTH TRANSPORT ENTERPRIS MANAGEMEN ATION; ES T TAXI NEBULIZER E0570 [facility] WITH 1 MEDICAL MEDICAL COMPRESSO EQUIPMENT EQUIPMENT R NONEMERGE A0100 [facility] 1 TRANSIT HEALTH TRANSPORT ENTERPRIS MANAGEMEN ATION; ES T TAXI NONEMERGE A0100 [facility] 1 TRANSIT HEALTH TRANSPORT ENTERPRIS MANAGEMEN ATION; ES T TAXI NONEMERGE A0100 [facility] 1 TRANSIT HEALTH TRANSPORT ENTERPRIS MANAGEMEN ATION; ES T TAXI NONEMERGE A0100 [facility] 1 TRANSIT HEALTH TRANSPORT ENTERPRIS MANAGEMEN ATION; ES T T[facility]I HOME CARE S5108 [facility] 1 [facility] D AREA D AREA CARE AGENCY AGENCY CLIENT PER 15 MIN NONEMERGE A0100 [facility] 1 TRANSIT HEALTH TRANSPORT ENTERPRIS MANAGEMEN ATION; ES T TAXI NONEMERGE A0100 [facility] 1 TRANSIT HEALTH TRANSPORT ENTERPRIS MANAGEMEN ATION; ES T TAXI NONEMERGE A0100 [facility] 1 TRANSIT HEALTH TRANSPORT ENTERPRIS MANAGEMEN ATION; ES T TAXI NONEMERGE A0100 [facility] 1 TRANSIT HEALTH TRANSPORT ENTERPRIS MANAGEMEN ATION; ES T TAXI O2 CONC 1 E1390 [facility] MEDICAL MEDICAL 85%/>02 [facility] FLW RATE NONEMERGE A0100 [facility] 1 TRANSIT HEALTH TRANSPORT ENTERPRIS MANAGEMEN ATION; ES T TAXI NONEMERGE A0100 [facility] 1 TRANSIT HEALTH TRANSPORT ENTERPRIS MANAGEMEN ATION; ES T TAXI NONEMERGE A0100 [facility] 1 TRANSIT HEALTH TRANSPORT ENTERPRIS MANAGEMEN ATION; ES T T[facility]I HOME CARE S5108 [facility] TRAINING 1 [facility] D AREA D AREA CARE AGENCY AGENCY CLIENT PER 15 MIN NONEMERGE A0100 [facility] 1 TRANSIT HEALTH TRANSPORT ENTERPRIS MANAGEMEN ATION; ES T TAXI NONEMERGE A0100 [facility] 1 TRANSIT HEALTH TRANSPORT ENTERPRIS MANAGEMEN ATION; ES T TAXI HOME CARE S5108 [facility] TRAINING 1 [facility] D AREA D AREA CARE AGENCY AGENCY CLIENT PER 15 MIN PROTHROMB 31487 LONG ALVES IN TIME 1 O MEDICAL O MEDICAL ASSOC LA ASSOC LA REPL LIU A4235 [facility] LITHIUM 1 MEDICAL MEDICAL MED NECES SUPPLY SUPPLY MERON BG MON OWN PT EA LANCETS A4259 [facility] PER BOX 1 MEDICAL MEDICAL OF 100 SUPPLY SUPPLY NORMAL A4256 [facility] LOW AND 1 MEDICAL MEDICAL HIGH SUPPLY SUPPLY CALIBRATO R SOLUTION/ CHIPS BLD GLU A4253 [facility] TEST/REAG 1 MEDICAL MEDICAL T STRIPS SUPPLY SUPPLY HOME BLD GLU MON-50 NEBULIZER E0570 [facility] WITH 1 MEDICAL MEDICAL COMPRESSO EQUIPMENT EQUIPMENT R HOME CARE S5108 [facility] TRAINING 1 [facility] D AREA D AREA CARE AGENCY AGENCY CLIENT PER 15 MIN HOME CARE S5108 [facility] TRAINING 1 [facility] D AREA D AREA CARE AGENCY AGENCY CLIENT PER 15 MIN HOME CARE S5108 [facility] TRAINING 1 [facility] D AREA D AREA CARE AGENCY AGENCY CLIENT PER 15 MIN NONEMERGE A0100 [facility] 1 TRANSIT HEALTH TRANSPORT ENTERPRIS MANAGEMEN ATION; ES T TAXI HOME CARE S5108 [facility] TRAINING 1 [facility] D AREA D AREA CARE AGENCY AGENCY CLIENT PER 15 MIN HOME CARE S5108 [facility] TRAINING 1 [facility] D AREA D AREA CARE AGENCY AGENCY CLIENT PER 15 MIN NONEMERGE A0100 [facility] 1 TRANSIT HEALTH TRANSPORT ENTERPRIS MANAGEMEN ATION; ES T TAXI NONEMERGE A0100 [facility] 1 TRANSIT HEALTH TRANSPORT ENTERPRIS MANAGEMEN ATION; ES T TAXI HOME CARE S5108 [facility] 1 [facility] D AREA D AREA CARE AGENCY AGENCY CLIENT PER 15 MIN PR[address]HROMB [id number] [place] [address] IN TIME 1 O MEDICAL O MEDICAL ASSOC LA ASSOC LA HOME CARE S5108 [facility] 1 [facility] D AREA D AREA CARE AGENCY AGENCY CLIENT PER 15 MIN NONEMERGE A0100 [facility] 1 TRANSIT HEALTH TRANSPORT ENTERPRIS MANAGEMEN ATION; ES T TAXI NONEMERGE A0100 [facility] 1 TRANSIT HEALTH TRANSPORT ENTERPRIS MANAGEMEN ATION; ES T TAXI NONEMERGE A0100 [facility] 1 TRANSIT HEALTH TRANSPORT ENTERPRIS MANAGEMEN ATION; ES T TAXI HOME CARE S5108 [facility] 1 [facility] D AREA D AREA CARE AGENCY AGENCY CLIENT PER 15 MIN PROTHROMB 36225 [facility] IN TIME 1 O MEDICAL O MEDICAL ASSOC LA ASSOC LA HOME CARE S5108 [facility] 1 [facility] D AREA D AREA CARE AGENCY AGENCY CLIENT PER 15 MIN HOME CARE S5108 [facility] 1 [facility] D AREA D AREA CARE AGENCY AGENCY CLIENT PER 15 MIN HOME CARE S5108 [facility] 1 [facility] D AREA D AREA CARE AGENCY AGENCY CLIENT PER 15 MIN HOME CARE S5108 [facility] 1 [facility] D AREA D AREA CARE AGENCY AGENCY CLIENT PER 15 MIN HOME CARE S5108 [facility] 1 [facility] D AREA D AREA CARE AGENCY AGENCY CLIENT PER 15 MIN HOME CARE S5108 [facility] 1 [facility] D AREA D AREA CARE AGENCY AGENCY CLIENT PER 15 MIN PROTHROMB 24141 [facility] IN TIME 1 O MEDICAL O MEDICAL ASSOC LA ASSOC LA NONEMERGE A0100 [facility] 1 TRANSIT HEALTH TRANSPORT ENTERPRIS MANAGEMEN ATION; ES T TAXI HOME CARE S5108 [facility] TRA[facility] 1 [facility] D AREA D AREA CARE AGENCY AGENCY CLIENT PER 15 MIN OBSERVATI 18941 [place] MADELINE [place] ON CARE 1 MEDICAL DISCHARGE SERV FOUNDATIO MANAGEMEN T ECG 62686 MALLY SHEETS ELISA ROUTINE 1 MEDICAL ECG SERV W/LEAST FOUNDATIO 12 LDS I&R ONLY ELECTROEN 00453 MALLY CHIN GUL CEPHALOGR 1 MEDICAL AM W/REC SERV AWAKE&[place] [address] MALLY ASTUDILLO HEAD/BRAI 1 MEDICAL N W/[place] [address] IZABELA KEYIDG HEAD/BRAI 1 E MAYNOR N W/O RADIOLOGY CONTRAST ASSOC MATERIAL RADIOLOGI 56428 IZABELA LYN C 1 EXAMINATI RADIOLOGY ON CHEST ASSOC SINGLE VIEW FRONTAL INSJ TEMP 79361 [facility] NDWELLG 1 HOSP INC HOSP INC 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 SIMPLE ECG 96680 EMERGENCY ARANA ROUTINE 1 COVERAGE SEA ECG W/LEAST CORPORATI 12 LDS I&R ONLY SBSQ 71825 [facility] 1 MEDICAL CARE/DAY SERV 25 FOUNDATIO MINUTES NONINVASI 64103 [facility] VE 1 HOSP INC HOSP INC EAR/PULSE OXIMETRY SINGLE DETER INITIAL 43426 [facility] 1 MEDICAL CARE/DAY SERV 70 FOUNDATIO MINUTES MRA NECK 05885 [facility] ASHA KWA W/O 1 MEDICAL CONTRST SERV MATERIAL FOUNDATIO MRI BRAIN 91424 [facility] ASHA KWA BRAIN 1 MEDICAL STEM W/O SERV CONTRAST FOUNDATIO MATERIAL MRA HEAD 51289 MALLY ASHA KWA W/O 1 MEDICAL CONTRST SERV MATERIAL FOUNDATIO THROMBOPL 63846 [facility] ASTIN 1 HOSP INC HOSP INC TIME PARTIAL PLASMA/[place] [address] [facility] HEAD/BRAI 1 HOSP INC HOSP INC N W/O CONTRAST MATERIAL INSJ TEMP 40203 [facility] NDWELLG 1 HOSP INC HOSP INC 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 SIMPLE COLLECTIO 34449 [facility] N VENOUS 1 HOSP INC HOSP INC BLOOD VENIPUNCT URE INJECTION J1885 [facility] 1 HOSP INC HOSP INC KETOROLAC TROMETHAM INE PER 15 MG PROTHROMB 55698 [facility] IN TIME 1 HOSP INC HOSP INC BLOOD 31888 [facility] COUNT 1 HOSP INC HOSP INC COMPLETE AUTO&AUTO DIFRNTL WBC NONINVASI 27955 [facility] VE [address] [facility] HOSP INC EAR/PULSE OXIMETRY SINGLE DETER COMPREHEN 59304 [facility] SIVE 1 HOSP INC HOSP INC METABOLIC PANEL THER 34683 [facility] PROPH/DX [address] [facility] H[facility] INC NJX IV PUSH SINGLE/1S T SBST/DRUG URNLS DIP 20795 [facility] [address] [facility] HOSP INC STICK/TAB LET RGNT AUTO W/O MICROSCOP Y HOME CARE S5108 [facility] 1 [facility] D AREA D AREA CARE AGENCY AGENCY CLIENT PER 15 MIN GROUND A0425 [facility] MILEAGE 1 EMS EMS PER STATUTE MILE NONEMERGE A0100 [facility] [place] 1 TRANSIT HEALTH TRANSPORT ENTERPRIS MANAGEMEN ATION; ES T TAXI DRUG SCR [id number] [facility] NOT 1 HOSP INC HOSP INC CHROMATOG RAPHIC; ANY NUMBER PT ENC AMB [id number] [facility] SERVICE 1 EMS EMS ALS EMERGENCY TRANSPORT LEVEL 1 NONEMERGE A0100 [facility] [place] 1 TRANSIT HEALTH TRANSPORT ENTERPRIS MANAGEMEN ATION; ES T TAXI NONEMERGE A0100 [facility] [place], [facility] 1 [facility]ANS[facility] HEALTH TRANSPORT ENTERPRIS MANAGEMEN ATION; ES T TAXI NONEMERGE A0100 [facility] 1 [facility] TRANSPORT ENTERPRIS MANAGEMEN ATION; ES T TAXI HOME CARE S5108 [facility] TRAINING 1 [facility] D AREA CARE AGENCY AGENCY CLIENT PER 15 MIN HOME CARE S5108 [facility] TRAINING 1 [facility] D AREA CARE AGENCY AGENCY CLIENT PER 15 MIN HOME CARE S5108 [facility] TRAINING 1 [facility] D AREA CARE AGENCY AGENCY CLIENT PER 15 MIN HOME CARE S5108 [facility] TRAINING 1 [facility] D AREA CARE AGENCY AGENCY CLIENT PER 15 MIN PROTHROMB 28247 [facility] IN TIME 1 O MEDICAL O MEDICAL ASSOC LA ASSOC LA NONEMERGE A0100 [facility] UTY 1 [facility] TRANSPORT ENTERPRIS MANAGEMEN ATION; ES T TAXI HOME CARE S5108 [facility] TRAINING 1 [facility] D AREA D AREA CARE AGENCY AGENCY CLIENT PER 15 MIN HOME CARE S5108 [facility] TRAINING 1 [facility] D AREA D AREA CARE AGENCY AGENCY CLIENT PER 15 MIN NEBULIZER E0570 [facility]O ERAZO WITH 1 MEDICAL MEDICAL COMPRESSO EQUIPMENT EQUIPMENT R PROTHROMB 30056 [facility] IN TIME 1 O MEDICAL O MEDICAL ASSOC LA ASSOC LA HOME CARE S5108 [facility] TRAINING 1 [facility] D AREA D AREA CARE AGENCY AGENCY CLIENT PER 15 MIN NONEMERGE A0100 [facility] NCY 1 [facility]SP[facility] ENTERPRIS MANAGEMEN ATION; ES T [facility] HOME CARE S5108 [facility] TRAINING 1 [facility] D AREA D AREA CARE AGENCY AGENCY CLIENT PER 15 MIN NONEMERGE A0100 [facility] NCY 1 [facility] TRANSP[facility] ENTERPRIS MANAGEMEN ATION; ES T TAXI NONEMERGE A0100 [facility] NCY 1 [facility] TRANSPORT ENTERPRIS MANAGEMEN ATION; ES T T[facility]I HOME CARE S5108 [facility] TRAINING 1 [facility] D AREA D AREA CARE AGENCY AGENCY CLIENT PER 15 MIN NONEMERGE A0100 [facility] NCY 1 [facility] TRANSP[facility] ENTERPRIS MANAGEMEN ATION; ES T TAXI NONEMERGE A0100 [facility] NCY 1 [facility] TRANSP[facility] ENTERPRIS MANAGEMEN ATION; ES T [facility] HOME CARE S5108 [facility] TRAINING 1 [facility] AREA D AREA CARE AGENCY AGENCY CLIENT PER 15 MIN NONEMERGE A0100 [facility] UTY 1 [facility] TRANSP[facility] ENTERPRIS MANAGEMEN ATION; ES T T[facility]I HOME CARE S5108 [facility] TRAINING 1 [facility] D AREA D AREA CARE AGENCY AGENCY CLIENT PER 15 MIN NONEMERGE A0100 [facility] NCY 1 [facility] TRANSP[facility] ENTERPRIS MANAGEMEN ATION; ES T TAXI HOME CARE S5108 [facility] TRAINING 1 [facility] AREA D AREA CARE AGENCY AGENCY CLIENT PER 15 MIN HOME CARE S5108 [facility] AGENCY AGENCY CLIENT PER 15 MIN NONEMERGE A0100 [facility] NCY 1 [facility] TRANSPORT ENTERPRIS MANAGEMEN ATION; ES T TAXI NONEMERGE A0100 [facility] NCY 1 [facility] TRANSP[facility] ENTERPRIS MANAGEMEN ATION; ES T TAXI NONEMERGE A0100 [facility] UTY 1 [facility] TRANSP[facility] ENTERPRIS MANAGEMEN ATION; ES T [facility]I HOME CARE S5108 [facility] TRAINING 1 [facility] AREA D AREA CARE AGENCY AGENCY CLIENT PER 15 MIN NONEMERGE A0100 [facility] NCY 1 [facility] TRANSP[facility] ENTERPRIS MANAGEMEN ATION; ES T TAXI NONEMERGE A0100 [facility] NCY 1 [facility] TRANSP[facility] ENTERPRIS MANAGEMEN ATION; ES T [facility] HOME CARE S5108 [facility] TRAINING 1 [facility] AREA D AREA CARE AGENCY AGENCY CLIENT PER 15 MIN NONEMERGE A0100 [facility] UTY 1 [facility] TRANSPORT ENTERPRIS MANAGEMEN ATION; ES T TAXI NONEMERGE A0100 [facility] UTY 1 [facility] TRANSPORT ENTERPRIS MANAGEMEN ATION; ES T [facility]I HOME CARE S5108 [facility] TRAINING 1 [facility] AREA CARE AGENCY AGENCY CLIENT PER 15 MIN NEBULIZER E0570 CASTRO ERAZO WITH 1 MEDICAL MEDICAL COMPRESSO EQUIPMENT EQUIPMENT R NONEMERGE A0100 [facility] NCY 1 [facility]SP[facility] ENTERPRIS MANAGEMEN ATION; ES T TAXI HOME CARE S5108 [facility] TRAINING 1 [facility] AREA D AREA CARE AGENCY AGENCY CLIENT PER 15 MIN NONEMERGE A0100 [facility] NCY 1 [facility] TRANSPORT ENTERPRIS MANAGEMEN ATION; ES T TAXI NONEMERGE A0100 [facility] NCY 1 [facility] TRANSP[facility] ENTERPRIS MANAGEMEN ATION; ES T TAXI NONEMERGE A0100 [facility] NCY 1 [facility] TRANSPORT ENTERPRIS MANAGEMEN ATION; ES T TAXI HOME CARE S5108 [facility] TRAINING 1 [facility] D AREA CARE AGENCY AGENCY CLIENT PER 15 MIN CONTINUOU E0601 [facility] S 1 [facility] AIRWAY PRESSURE DEVICE HOME CARE S5108 [facility] TRAINING 1 [facility] AREA CARE AGENCY AGENCY CLIENT PER 15 MIN NONEMERGE A0100 [facility] NCY 1 [facility]SP[facility] ENTERPRIS MANAGEMEN ATION; ES T TAXI NONEMERGE A0100 [facility] NCY 1 [facility] TRANSP[facility] ENTERPRIS MANAGEMEN ATION; ES T TAXI LIPID 78465 [facility] PANEL 1 O MEDICAL O [facility] LA COMPREHEN 74779 [facility] SIVE 1 O MEDICAL O MEDICAL METABOLIC ASSOC LA ASSOC LA PANEL PROTHROMB 29591 [facility] IN TIME 1 O MEDICAL O MED[facility]OC LA BLOOD 78203 [facility] COUNT 1 O MEDICAL O MEDICAL COMPLETE ASSOC LA ASSOC LA AUTO&AUTO DIFRNTL WBC COLLECTIO 02065 [facility] N VENOUS 1 O MEDICAL O MEDICAL BLOOD ASSOC LA ASSOC LA VENIPUNCT URE HEMOGLOBI 39530 [facility] N 1 O MEDICAL O MEDICAL GLYCOSYLA ASSOC [place] [address] [facility] THYROID 1 O MEDICAL O MEDICAL STIMULATI ASSOC LA ASSOC LA NG HORMONE TSH HOME CARE S5108 [facility] TRAINING 1 [facility] D AREA D AREA CARE AGENCY AGENCY CLIENT PER 15 MIN NONEMERGE A0100 [facility] NCY 1 [facility]SP[facility] ENTERPRIS MANAGEMEN ATION; ES T TAXI MISC TX T1999 [facility] ITEMS & 1 [facility] SPL D AREA D AREA RETAIL AGENCY AGENCY PURCHASE NOC HOME CARE S5108 [facility] TRAINING 1 [facility] D AREA D AREA CARE AGENCY AGENCY CLIENT PER 15 MIN NONEMERGE A0100 [facility] NCY 1 [facility]SP[facility] ENTERPRIS MANAGEMEN ATION; ES T TAXI NONEMERGE A0100 [facility] NCY 1 [facility]SP[facility] ENTERPRIS MANAGEMEN ATION; ES T TAXI HOME CARE S5108 [facility] TRAINING 1 [facility] D AREA D AREA CARE AGENCY AGENCY CLIENT PER 15 MIN NONEMERGE A0100 [facility] NCY 1 [facility]SP[facility] ENTERPRIS MANAGEMEN ATION; ES T TAXI HOME CARE S5108 [facility] TRAINING 1 [facility] D AREA D AREA CARE AGENCY AGENCY CLIENT PER 15 MIN HOME CARE S5108 [facility] TRAINING 1 [facility] D AREA D AREA CARE AGENCY AGENCY CLIENT PER 15 MIN NONEMERGE A0100 [facility] NCY 1 [facility] TRANSPORT ENTERPRIS MANAGEMEN ATION; ES T TAXI NONEMERGE A0100 [facility] NCY 1 [facility] TRANSP[facility] ENTERPRIS MANAGEMEN ATION; ES T TAXI HOME CARE S5108 [facility] TRAINING 1 [facility] D AREA D AREA CARE AGENCY AGENCY CLIENT PER 15 MIN HOME CARE S5108 [facility] TRAINING 1 [facility] D AREA D AREA CARE AGENCY AGENCY CLIENT PER 15 MIN NONEMERGE A0100 [facility] NCY 1 [facility]SP[facility] ENTERPRIS MANAGEMEN ATION; ES T TAXI HOME CARE S5108 [facility] TRAINING 1 [facility] AREA D AREA CARE AGENCY AGENCY CLIENT PER 15 MIN HOME CARE S5108 [facility] TRAINING 1 [facility] AREA D AREA CARE AGENCY AGENCY CLIENT PER 15 MIN NONEMERGE A0100 [facility] NCY 1 [facility] TRANSPORT ENTERPRIS MANAGEMEN ATION; ES T TAXI NONEMERGE A0100 [facility] NCY 1 [facility] TRANSP[facility] ENTERPRIS MANAGEMEN ATION; ES T TAXI NEBULIZER E0570 CASTRO ERAZO WITH 1 MEDICAL MEDICAL COMPRESSO EQUIPMEN EQUIPMEN R COMPUTER- 92714 [facility] AIDED 1 HOSP INC HOSP INC DETECTION SCREENING MAMMOGRAP HY NONEMERGE A0100 [facility] NCY 1 [facility]SP[facility] ENTERPRIS MANAGEMEN ATION; ES T TAXI HOME CARE S5108 [facility] TRAINING 1 [facility] AREA D AREA CARE AGENCY AGENCY CLIENT PER 15 MIN SCREENING [id number] [facility] CO 1 HOSP INC HOSP INC MAMMOGRAP HY KARLA INCL CAD WHEN PERFORMD HOME CARE S5108 [facility] TRAINING 1 [facility] AREA D AREA CARE AGENCY AGENCY CLIENT PER 15 MIN NONEMERGE A0100 [facility] NCY 1 [facility]SPORT ENTERPRIS MANAGEMEN ATION; ES T TAXI NONEMERGE A0100 [facility] UTY 1 [facility] TRANSPORT ENTERPRIS MANAGEMEN ATION; ES T TAXI CONTINUOU E0601 [facility] S 1 MEDICAL MEDICAL POSITIVE [facility] AIRWAY PRESSURE DEVICE PROTHROMB 39102 [facility] IN TIME 1 O MEDICAL O MEDICAL ASSOC LA ASSOC LA HOME CARE S5108 [facility] TRAINING 1 [facility] D AREA D AREA CARE AGENCY AGENCY CLIENT PER 15 MIN NONEMERGE A0100 [facility] NCY 1 [facility] TRANSPORT ENTERPRIS MANAGEMEN ATION; ES T TAXI NONEMERGE A0100 [facility] NCY 1 [facility] TRANSPORT ENTERPRIS MANAGEMEN ATION; ES T TAXI HOME CARE S5108 [facility] TRAINING 1 [facility] D AREA D AREA CARE AGENCY AGENCY CLIENT PER 15 MIN NONEMERGE A0100 [facility] NCY 1 [facility] TRANSPORT ENTERPRIS MANAGEMEN ATION; ES T TAXI NONEMERGE A0100 [facility] NCY 1 [facility] TRANSPORT ENTERPRIS MANAGEMEN ATION; ES T TAXI HOME CARE S5108 [facility] TRAINING 1 [facility] D AREA D AREA CARE AGENCY AGENCY CLIENT PER 15 MIN HOME CARE S5108 [facility] TRAINING 1 [place] [facility] D AREA D AREA CARE AGENCY AGENCY CLIENT PER 15 MIN NONEMERGE A0100 [facility] NCY 1 [facility] TRANSPORT ENTERPRIS MANAGEMEN ATION; ES T TAXI NONEMERGE A0100 [facility] NCY 1 [facility] TRANSPORT ENTERPRIS MANAGEMEN ATION; ES T TAXI HOME CARE S5108 [facility] TRAINING 1 [facility] D AREA D AREA CARE AGENCY AGENCY CLIENT PER 15 MIN NONEMERGE A0100 [facility] NCY 1 [facility] TRANSPORT ENTERPRIS MANAGEMEN ATION; ES T TAXI HOME CARE S5108 [facility] TRAINING 1 [facility] D AREA D AREA CARE AGENCY AGENCY CLIENT PER 15 MIN INJECTION J2270 [facility] MORPHINE 1 [facility]OSP INC HOSP INC SULFATE UP TO 10 MG NONINVASI 18039 [facility] AR [facility] VE 1 [facility]OSP INC HOSP INC EAR/PULSE OXIMETRY SINGLE DETER PROTHROMB 81417 [facility] IN TIME 1 [facility]P INC [facility]P INC BLOOD 30943 [facility] COUNT 1 [facility]P INC HOSP INC COMPLETE AUTO&AUTO DIFRNTL WBC COLLECTIO 93356 [facility] N VENOUS 1 HOSP INC HOSP INC BLOOD VENIPUNCT URE CREATINE 58261 [facility] KINASE 1 HOSP INC HOSP INC TOTAL BASIC 04548 [facility] METABOLIC 1 HOSP INC HOSP INC PANEL CALCIUM TOTAL OBSERVATI 17603 [facility] HUSSEIN COR ON CARE 1 [facility] S MANAGEMEN T CREATINE 98593 [facility] KINASE MB 1 [place] [address] [facility] TROPONIN 1 [facility] [address] [facility] TROPONIN 1 HOSP INC HOSP INC QUANTITAT TIKA IRON 74183 [facility] BINDING 1 HOSP INC HOSP INC CAPACITY NATRIURET 84784 [facility] IC 1 [place] [address] [facility] IRON 1 HOSP INC HOSP INC CREATINE 76150 [facility] KINASE MB 1 [place] [address] [facility] THYROID 1 HOSP INC HOSP INC STIMULATI NG HORMONE TSH RADIOLOGI 75880 [facility] C 1 HOSP INC HOSP INC EXAMINATI [place] [address] [facility] THYROXINE 1 HOSP INC HOSP INC TOTAL CREATINE 91544 [facility] KINASE 1 HOSP INC HOSP INC TOTAL COLLECTIO 15464 [facility] N VENOUS 1 HOSP INC HOSP INC BLOOD VENIPUNCT URE BLOOD 61771 [facility] COUNT 1 HOSP INC HOSP INC COMPLETE AUTO&AUTO DIFRNTL WBC PROTHROMB 16817 [facility] IN TIME 1 HOSP INC HOSP INC ECG 65260 [facility] [place] ROUTINE 1 COVERAGE ELZ ECG W/LEAST CORPORATI 12 LDS I&R ONLY NONINVASI 17875 [facility] VE 1 HOSP INC HOSP INC EAR/PULSE OXIMETRY SINGLE DETER COMPREHEN 46202 [facility] SIVE 1 HOSP INC HOSP INC METABOLIC PANEL INJECTION J2270 [facility] MORPHINE 1 HOSP INC HOSP INC SULFATE UP TO 10 MG ECG 61721 [facility] ROUTINE 1 HOSP INC HOSP INC ECG W/LEAST 12 LDS TRCG ONLY W/O I&R GROUND A0425 [facility] MILEAGE 1 EMS EMS PER STATUTE MILE AMB A0427 [facility] SERVICE 1 EMS EMS ALS EMERGENCY TRANSPORT LEVEL 1 HOME CARE S5108 [facility] TRAINING 1 [facility] D AREA CARE AGENCY AGENCY CLIENT PER 15 MIN INCONTINE T4541 PERSONAL PERSONAL NCE 1 TOUCH TOUCH PRODUCT HOME JAIL CARE DISPOSABL OF OF E UNDPAD LARGE EA DISPBL T4535 PERSONAL PERSONAL LINER/JARED 1 TOUCH TOUCH ELD/GUARD HOME JAIL CARE /PAD/UNDG OF OF RMNT INCONT EA NONEMERGE A0100 [facility] 1 [facility] ENTERPRIS MANAGEMEN ATION; ES T TAXI NEBULIZER E0570 CASTRO ERAZO WITH 1 MEDICAL MEDICAL COMPRESSO EQUIPMEN EQUIPMEN R NONEMERGE A0100 [facility] NCY 1 [facility] ENTERPRIS MANAGEMEN ATION; ES T TAXI CT LUMBAR 23781 [facility] [employer] SPINE 1 D. W/O RADIOLOGY CONTRAST ASSOC MATERIAL 3D 23830 [employer] RENDERING 1 D. W/INTERP RADIOLOGY & ASSOC POSTPROCE SS SUPERVISI ON HOME CARE S5108 [facility] TRAINING [address] [facility] HOME D AREA D AREA CARE AGENCY AGENCY CLIENT PER 15 MIN HOME CARE S5108 [facility] TRAINING [address] [facility] HOME D AREA D AREA CARE AGENCY AGENCY CLIENT PER 15 MIN GROUND A0425 [facility] MILEAGE 1 EMS EMS PER STATUTE MILE AMBULANCE A0429 [facility] SERVICE 1 EMS EMS BLS EMERGENCY TRANSPORT CONTINUOU E0601 [facility] S 1 [facility] AIRWAY PRESSURE DEVICE FULL FACE A7030 [facility] MASK 1 [facility] W/POS ARWAY PRESS DEVICE EA FILTER A7038 [facility] DISPBL 1 [facility] W/POS ARWAY PRESSURE DEVICE FILTER A7039 [facility] NON 1 [facility]ICAL MEDICAL DISPBL LLC LLC USED W/POS ARWAY PRESS DEVICE NONINVASI 81768 [facility] CO VE 1 HOSP INC HOSP INC EAR/PULSE OXIMETRY SINGLE DETER FACE MASK A7031 [facility] 1 [facility] INTERFACE [facility] LLC REPLCMT FULL FACE MASK EA HUMDIFIR E0562 [facility] HEATED 1 [facility] W/POS ARWAY PRESSURE DEVICE HEADGEAR A7035 [facility] USED 1 MEDICAL MEDICAL W/POSITIV LLC LLC E AIRWAY PRESSURE DEVICE TUBING A7037 [facility] USED WITH 1 [facility] AIRWAY PRESSURE DEVICE HOME CARE S5108 [facility] TRAINING 1 [facility] D AREA CARE AGENCY AGENCY CLIENT PER 15 MIN HOME CARE S5108 [facility] TRAINING 1 [facility] D AREA D AREA CARE AGENCY AGENCY CLIENT PER 15 MIN NONEMERGE A0100 [facility] NCY 1 [facility] ENTERPRIS MANAGEMEN ATION; ES T TAXI NONEMERGE A0100 [facility] NCY 1 [facility]SP[facility] ENTERPRIS MANAGEMEN ATION; ES T TAXI NONEMERGE A0100 [facility] UTY 1 [facility]SP[facility] ENTERPRIS MANAGEMEN ATION; ES T TAXI HOME CARE S5108 [facility] TRAINING 1 [facility] HOME D AREA D AREA CARE AGENCY AGENCY CLIENT PER 15 MIN NONINVASI 09993 [facility] CO VE 1 HOSP INC HOSP INC EAR/PULSE OXIMETRY SINGLE DETER RADEX 52058 [facility] SPINE 1 HOSP INC HOSP INC LUMBOSACR AL MINIMUM 4 VIEWS NONEMERGE A0100 [facility]TY 1 [facility] ENTERPRIS MANAGEMEN ATION; ES T TAXI HOME CARE S5108 [facility] TRAINING 1 [facility] D AREA D AREA CARE AGENCY AGENCY CLIENT PER 15 MIN NONEMERGE A0100 [facility] UTY 1 [facility] ENTERPRIS MANAGEMEN ATION; ES T TAXI NONEMERGE A0100 [facility] NCY 1 [facility]SP[facility] ENTERPRIS MANAGEMEN ATION; ES T TAXI HOME CARE S5108 [facility] TRAINING 1 [facility] D AREA D AREA CARE AGENCY AGENCY CLIENT PER 15 MIN NONEMERGE A0100 [facility] NCY 1 [facility]SP[facility] ENTERPRIS MANAGEMEN ATION; ES T TAXI HOME CARE S5108 [facility] TRAINING 1 [facility] AREA CARE AGENCY AGENCY CLIENT PER 15 MIN NONINVASI 17015 [facility] VE 1 HOSP INC HOSP INC EAR/PULSE OXIMETRY SINGLE DETER ECG 21828 [facility] ROUTINE 1 HOSP INC HOSP INC ECG W/LEAST 12 LDS TRCG ONLY W/O I&R INJ J2930 [facility] METHYLPRD 1 HOSP INC HOSP INC NISOLONE SODIUM SUCCNAT TO 125 MG OBSERVATI 88310 [facility] HUSSEIN COR ON CARE 1 [facility] S MANAGEMEN T COLLECTIO 63483 [facility] N VENOUS 1 HOSP INC HOSP INC BLOOD VENIPUNCT URE PROTHROMB 48661 [facility] IN TIME 1 HOSP INC HOSP INC BLOOD 97751 [facility] COUNT 1 [facility]OSP INC HOSP INC COMPLETE AUTOMATED PROTHROMB 46488 [facility] IN TIME 1 HOSP INC HOSP INC COLLECTIO 37111 [facility] N VENOUS 1 HOSP INC HOSP INC BLOOD VENIPUNCT URE BASIC 45223 [facility] METABOLIC 1 HOSP INC HOSP INC PANEL CALCIUM TOTAL CREATINE 47728 [facility] KELLY ESTESNE CO KINASE 1 HOSP INC HOSP INC TOTAL CREATINE 88398 [facility] KINASE MB 1 [facility] [place] [address] [facility] TROPONIN 1 HOSP INC HOSP INC QUANTITAT TIKA INJECTION J2270 [facility] MORPHINE 1 HOSP INC HOSP INC SULFATE UP TO 10 MG INJ J2930 [facility] METHYLPRD 1 HOSP INC HOSP INC NISOLONE SODIUM SUCCNAT TO 125 MG NONINVASI 57581 [facility] CO VE [address] [facility] HOSP INC EAR/PULSE OXIMETRY SINGLE DETER PRESSURIZ 37610 [facility] ED/NONPRE 1 HOSP [facility] SSURIZED INHALATIO N TREATMENT INITIAL 05785 [facility] HUSSEIN COR OBSERVATI 1 HOSPITAL- ON HOSPITALI CARE/DAY S 50 MINUTES CULTURE 25765 [facility] CO BACTERIAL [address] [facility] HOSP INC BLOOD AEROBIC W/ID ISOLATES ARTERIAL 04732 [facility] PUNCTURE [address] [facility] HOSP INC WITHDRAWA L BLOOD DX NONINVASI 74482 [facility] CO VE 1 [facility] EAR/PULSE OXIMETRY SINGLE DETER THERAPEUT 03942 [facility] IC 1 HOSP [facility] INJECTION IV PUSH EACH NEW DRUG INJ J2930 [facility] CO METHYLPRD 1 [facility] NISOLONE SODIUM SUCCNAT TO 125 MG ECG 38910 [facility] BALJIT CO ROUTINE 1 [facility] ECG W/LEAST 12 LDS TRCG ONLY W/O I&R THER 62571 [facility] PROPH/DX 1 [facility] NJX IV PUSH SINGLE/1S T SBST/DRUG DEMO&/SUKHDEV 53785 [facility] L OF PT 1 [facility] UTILIZ AERSL GEN/NEB/I NHLR/[place] [address] [facility] TROPONIN [address] [facility] HOSP INC QUANTITAT TIKA CREATINE 66636 [facility] KINASE MB [address] [facility] HOSP INC FRACTION ONLY CREATINE 66814 [facility] KINASE [address] [facility] HOSP INC TOTAL BLOOD 02966 [facility] GASES ANY [address] [facility] HOSP INC COMBINATI ON PH PCO2 PO2 CO2 HCO3 THROMBOPL 42783 [facility] ASTIN [address] [facility] HOSP INC TIME PARTIAL PLASMA/WH OLE BLOOD RADIOLOGI 16798 [facility] JENNIFER C 1 IMAGING & EXAMINATI ON CHEST INTERVENT SINGLE I VIEW FRONTAL BASIC 55631 [facility] METABOLIC 1 HOSP INC HOSP INC PANEL CALCIUM TOTAL INJECTION J1885 [facility] [address] [facility] HOSP INC KETOROLAC TROMETHAM INE PER 15 MG PROTHROMB 77466 [facility] IN TIME 1 HOSP INC HOSP INC BLOOD 40863 [facility] COUNT 1 HOSP INC HOSP INC COMPLETE AUTO&AUTO DIFRNTL WBC COLLECTIO 01465 [facility] N VENOUS 1 HOSP [facility] BLOOD VENIPUNCT URE HOME CARE S5108 [employer] TRA[facility]ING 1 [facility] [employer] D AREA D AREA CARE AGENCY AGENCY CLIENT PER 15 MIN NONEMERGE A0100 [facility] UTY 1 [facility] ENTERPRIS MANAGEMEN ATION; ES T TAXI NONEMERGE A0100 [facility] NCY 1 [facility]SP[facility] ENTERPRIS MANAGEMEN ATION; ES T TAXI HOME CARE S5108 [facility] TRAINING 1 [facility] [employer] D AREA D AREA CARE AGENCY AGENCY CLIENT PER 15 MIN NONEMERGE A0100 [facility]Y 1 [facility] ENTERPRIS MANAGEMEN ATION; ES T TAXI BLD GLU A4253 [facility] LIBERTY TEST/REAG 1 MEDICAL MEDICAL T STRIPS SUPPLY SUPPLY HOME BLD GLU MON-50 LANCETS A4259 LIBERTY LIBERTY PER BOX 1 MEDICAL MEDICAL OF 100 SUPPLY SUPPLY NONEMERGE A0100 [facility] UTY 1 [facility] TRANSPORT ENTERPRIS MANAGEMEN ATION; ES T [facility] S5108 [facility] TRAIN[facility] 1 [facility] [employer] D AREA D AREA CARE AGENCY AGENCY CLIENT PER 15 MIN ALBUTEROL [id number] F&H DRUGS F&H DRUGS INHAL 1 INC INC NON-CP PROD THRU DME U DOSE 1 MG RADIOLOGI 50379 LONG Tyler EXAM 1 O MEDICAL BON CHEST 2 VIEWS ASSOCIATE FRONTAL&L ATERAL NONEMERGE A0100 [facility] NCY 1 [facility] TRANSPORT ENTERPRIS MANAGEMEN ATION; ES T TAXI PHRM Q0513 F&H DRUGS F&H DRUGS DISPENSIN 1 INC INC G FEE INHALATIO N RX; PER 30 DAYS ADMN SET A7003 CASTRO ERAZO SM VOL 1 MEDICAL MEDICAL NONFILTR EQUIPMEN EQUIPMEN PNEUMAT NEBULIZR DISPBL NEBULIZER E0570 CASTRO ERAZO WITH 1 MEDICAL MEDICAL COMPRESSO EQUIPMEN EQUIPMEN R NONEMERGE A0100 [facility] [place] [facility] TRANSPORT ENTERPRIS MANAGEMEN ATION; ES T [facility] S5108 [facility] TRAINING 1 [facility] AREA D AREA CARE AGENCY AGENCY CLIENT PER 15 MIN NONEMERGE A0100 [facility] [place] [facility] TR[facility]ALTH TRANSPORT ENTERPRIS MANAGEMEN ATION; ES T TAXI NONEMERGE A0100 [facility] [place] 1 TRANSIT HEALTH TRANSPORT ENTERPRIS MANAGEMEN ATION; ES T [facility] S5108 [facility] TRAINING 1 [facility] AREA D AREA CARE AGENCY AGENCY CLIENT PER 15 MIN NONEMERGE A0100 [facility] UTY 1 TRANS[facility] HEALTH TRANSPORT ENTERPRIS MANAGEMEN ATION; ES T TAXI NONEMERGE A0100 [facility] [place] 1 TRANS[facility] HEALTH TRANSPORT ENTERPRIS MANAGEMEN ATION; ES T [facility] S5108 [facility] TRAIN[facility] 1 [facility] ARE[facility] D AREA CARE AGENCY AGENCY CLIENT PER 15 MIN SLEEP STD 12238 OSIEL AGUILAR AGUILAR OSIEL AIRFLOW 1 MD HRT CONSULTIN RATE&O2 G SRV SAT EFFORT UNATT NONEMERGE A0100 [facility] 1 [facility] TRANSPORT ENTERPRIS MANAGEMEN ATION; ES T TAXI NONEMERGE A0100 [facility] [place] 1 TR[facility]ALTH TRANSPORT ENTERPRIS MANAGEMEN ATION; ES T [facility] S5108 [facility] TRAINING 1 [facility] ARE[facility] D AREA CARE AGENCY AGENCY CLIENT PER 15 MIN HOME CARE S5108 [facility] TRAINING 1 [facility] AREA D AREA CARE AGENCY AGENCY CLIENT PER 15 MIN NONEMERGE A0100 [facility] [place] [facility] TRANSPORT ENTERPRIS MANAGEMEN ATION; ES T TAXI NONEMERGE A0100 [facility] 1 [facility] TRANSPORT ENTERPRIS MANAGEMEN ATION; ES T [facility] S5108 [facility] AREA D AREA CARE AGENCY AGENCY CLIENT PER 15 MIN NONEMERGE A0100 [facility] 1 [facility] TRANSPORT ENTERPRIS MANAGEMEN ATION; ES T T[facility]I NONEMERGE A0100 [facility] 1 [facility] TRANSPORT ENTERPRIS MANAGEMEN ATION; ES T [facility] S5108 [facility] TRAINING 1 [facility] AREA D AREA CARE AGENCY AGENCY CLIENT PER 15 MIN DAY CARE S5100 [facility] SERVICES 1 ADULT ADULT ADULT; HEALTH HEALTH PER 15 CARE LL CARE LL MINUTES HOME CARE S5108 [facility] TRAINING 1 [facility] [facility] D AREA D AREA CARE AGENCY AGENCY CLIENT PER 15 MIN NONEMERGE A0100 [facility] 1 [facility]SP[facility] ENTERPRIS MANAGEMEN ATION; ES T TAXI NONEMERGE A0100 [facility] UTY 1 [facility]SP[facility] ENTERPRIS MANAGEMEN ATION; ES T TAXI HOME CARE S5108 [facility] TRAINING 1 [facility] HOME D AREA D AREA CARE AGENCY AGENCY CLIENT PER 15 MIN NONEMERGE A0100 [facility] UTY 1 [facility] TRANSPORT ENTERPRIS MANAGEMEN ATION; ES T TAXI HOME CARE S5108 [facility] TRAINING 1 [facility] HOME D AREA D AREA CARE AGENCY AGENCY CLIENT PER 15 MIN NONEMERGE A0100 [facility] 1 [facility] TRANSPORT ENTERPRIS MANAGEMEN ATION; ES T TAXI HOME CARE S5108 [facility] TRAINING 1 [facility] D AREA D AREA CARE AGENCY AGENCY CLIENT PER 15 MIN NONEMERGE A0100 [facility] 1 [facility] TRANSPORT ENTERPRIS MANAGEMEN ATION; ES T TAXI NONEMERGE A0100 [facility] 1 [facility] TRANSPORT ENTERPRIS MANAGEMEN ATION; ES T TAXI NONEMERGE A0100 [facility] 1 [facility] TRANSPORT ENTERPRIS MANAGEMEN ATION; ES T TAXI DIAB ONLY A5500 [facility] FIT CSTM 1 D FOOT D FOOT PREP&SPL AND ANKLE AND ANKLE SHOE MX DNSITY INSRT FOR DIAB A5512 [facility] CUM[facility] ONLY MX 1 D FOOT D FOOT DNSITY AND ANKLE AND ANKLE INSRT DIR FORMD PRFAB EA HOME CARE S5108 [facility] TRAINING 1 [facility] AREA D AREA CARE AGENCY AGENCY CLIENT PER 15 MIN HOME CARE S5108 [facility] TRAINING 1 [facility] B[facility] AREA D AREA CARE AGENCY AGENCY CLIENT PER 15 MIN NONEMERGE A0100 [facility] 1 [facility] TRANSPORT ENTERPRIS MANAGEMEN ATION; ES T TAXI NONEMERGE A0100 [facility] 1 [facility] TRANSPORT ENTERPRIS MANAGEMEN ATION; ES T TAXI HOME CARE S5108 [facility] TRAINING 1 JOELBERLAN [facility] AREA D AREA CARE AGENCY AGENCY CLIENT PER 15 MIN NONEMERGE A0100 [facility] 1 [facility] TRANSPORT ENTERPRIS MANAGEMEN ATION; ES T TAXI NONEMERGE A0100 [facility] 1 [facility] TRANSPORT ENTERPRIS MANAGEMEN ATION; ES T TAXI HOME CARE S5108 [facility] TRAINING 1 [facility] AREA D AREA CARE AGENCY AGENCY CLIENT PER 15 MIN NONEMERGE A0100 [facility] 1 [facility] TRANSPORT ENTERPRIS MANAGEMEN ATION; ES T TAXI NONEMERGE A0100 [facility] 1 [facility] TRANSPORT ENTERPRIS MANAGEMEN ATION; ES T TAXI HOME CARE S5108 [facility] TRAINING 1 [facility] AREA D AREA CARE AGENCY AGENCY CLIENT PER 15 MIN NONEMERGE A0100 [facility] 1 [facility] TRANSPORT ENTERPRIS MANAGEMEN ATION; ES T TAXI NONEMERGE A0100 [facility] 1 [facility] TRANSPORT ENTERPRIS MANAGEMEN ATION; ES T TAXI HOME CARE S5108 [facility] TRAINING 1 [facility] AREA D AREA CARE AGENCY AGENCY CLIENT PER 15 MIN HOME CARE S5108 [facility] TRAINING 1 [facility] HOME D AREA D AREA CARE AGENCY AGENCY CLIENT PER 15 MIN NONEMERGE A0100 [facility] 1 [facility] TRANSPORT ENTERPRIS MANAGEMEN ATION; ES T TAXI NONEMERGE A0100 [facility] 1 [facility] TRANSPORT ENTERPRIS MANAGEMEN ATION; ES T TAXI HOME CARE S5108 [facility] TRAINING 1 [facility] HOME D AREA D AREA CARE AGENCY AGENCY CLIENT PER 15 MIN HOME CARE S5108 [facility] TRAINING 1 [facility] HOME D AREA D AREA CARE AGENCY AGENCY CLIENT PER 15 MIN NONEMERGE A0100 [facility] 1 [facility] TRANSPORT ENTERPRIS MANAGEMEN ATION; ES T TAXI HOME CARE S5108 [facility] TRAINING 1 JOELBERLAN [facility] D AREA D AREA CARE AGENCY AGENCY CLIENT PER 15 MIN ECG 85611 [facility] ROUTINE 1 [facility] H[facility]P INC ECG W/LEAST 12 LDS TRCG ONLY W/O I&R NONINVASI 82865 [facility] VE 1 [facility]P [facility] EAR/PULSE OXIMETRY SINGLE DETER COMPREHEN 66130 [facility] AR SIVE 1 [facility]OSP INC [facility]P INC METABOLIC PANEL PROTHROMB 33296 [facility] [place] IN TIME 1 [facility]OSP INC [facility]OSP INC COLLECTIO 14018 [facility] N VENOUS 1 HOSP INC HOSP INC BLOOD VENIPUNCT URE BLOOD 94593 [facility] COUNT 1 HOSP INC HOSP INC COMPLETE AUTO&AUTO DIFRNTL WBC RADIOLOGI 59103 [place] [facility] EXAM 1 IMAGING & PAUL CHEST 2 VIEWS INTERVENT FRONTAL&L I ATERAL THROMBOPL 31291 [facility] ASTIN 1 [facility] TIME PARTIAL PLASMA/WH OLE BLOOD CREATINE 30098 [facility] KINASE 1 [facility] TOTAL CREATINE 24858 [facility] KINASE MB 1 [place] [address] [place] [facility] TROPONIN 1 HOSP INC HOSP INC QUANTITAT TIKA NONEMERGE A0100 [facility] 1 [facility] TRANSPORT ENTERPRIS MANAGEMEN ATION; ES T TAXI NONEMERGE A0100 [facility] 1 [facility] TRANSPORT ENTERPRIS MANAGEMEN ATION; ES T TAXI HOME CARE S5108 [facility] TRAINING 1 [facility] D AREA D AREA CARE AGENCY AGENCY CLIENT PER 15 MIN NONEMERGE A0100 [facility] 1 [facility] TRANSPORT ENTERPRIS MANAGEMEN ATION; ES T TAXI NONEMERGE A0100 [facility] 1 [facility] TRANSPORT ENTERPRIS MANAGEMEN ATION; ES T TAXI HOME CARE S5108 [facility] TRAINING 1 [facility] D AREA D AREA CARE AGENCY AGENCY CLIENT PER 15 MIN NONEMERGE A0100 [facility] 1 [facility] TRANSPORT ENTERPRIS MANAGEMEN ATION; ES T TAXI NONEMERGE A0100 [facility] 1 [facility] TRANSPORT ENTERPRIS MANAGEMEN ATION; ES T TAXI HOME CARE S5108 [facility] TRAINING 1 [facility] D AREA D AREA CARE AGENCY AGENCY CLIENT PER 15 MIN HOME CARE S5108 [facility] TRA[facility]ING 1 [facility] HOME D AREA D AREA CARE AGENCY AGENCY CLIENT PER 15 MIN NONEMERGE A0100 [facility] 1 [facility] TRANSPORT ENTERPRIS MANAGEMEN ATION; ES T TAXI NONEMERGE A0100 [facility] 1 [facility] TRANSPORT ENTERPRIS MANAGEMEN ATION; ES T TAXI NONEMERGE A0100 [facility] 1 [facility] TRANSPORT ENTERPRIS MANAGEMEN ATION; ES T TAXI HOME CARE S5108 [facility] TRAINING 1 [facility] D AREA D AREA CARE AGENCY AGENCY CLIENT PER 15 MIN LIPID 62585 [facility] PANEL 1 O MEDICAL O MEDICAL ASSOC LA ASSOC LA PROTHROMB 21112 [facility] IN TIME 1 O MEDICAL O MEDICAL ASSOC LA ASSOC LA COMPREHEN 73838 [facility] SIVE 1 O MEDICAL O MEDICAL MET[place] [address] [facility] THYROID 1 O MEDICAL O MEDICAL STIMULATI ASSOC LA ASSOC LA NG HORMONE TSH HEMOGLOBI 52628 [facility] N 1 O MEDICAL O MEDICAL GLYCOSYLA ASSOC LA ASSOC LA DOTTIE A1C RADEX 99375 [facility] ANGELINA SPINE 1 O MEDICAL JUAN CERVICAL 2 OR 3 ASSOCIATE VIEWS BLOOD 26758 [facility] COUNT 1 O MEDICAL O MEDICAL COMPLETE ASSOC LA ASSOC LA AUTO&AUTO DIFRNTL WBC COLLECTIO 17427 [facility] N VENOUS 1 O MEDICAL O MEDICAL BLOOD ASSOC LA ASSOC LA VENIPUNCT URE NONEMERGE A0100 [facility] 1 [facility] TRANSPORT ENTERPRIS MANAGEMEN ATION; ES T TAXI NONEMERGE A0100 [facility] TRANSPORT ENTERPRIS MANAGEMEN ATION; ES T TAXI HOME CARE S5108 [facility] TRAINING 1 [facility] HOME D AREA D AREA CARE AGENCY AGENCY CLIENT PER 15 MIN HOME CARE S5108 [facility] TRA[facility]ING 1 [facility] HOME D AREA D AREA CARE AGENCY AGENCY CLIENT PER 15 MIN NONEMERGE A0100 [facility] 1 [facility] TRANSPORT ENTERPRIS MANAGEMEN ATION; ES T TAXI HOME CARE S5108 [facility] TRAINING 1 [facility] D AREA D AREA CARE AGENCY AGENCY CLIENT PER 15 MIN NONEMERGE A0100 [facility] TRANSPORT ENTERPRIS MANAGEMEN ATION; ES T TAXI NONEMERGE A0100 [facility] 1 [facility] TRANSPORT ENTERPRIS MANAGEMEN ATION; ES T TAXI HOME CARE S5108 [facility] TRAINING 1 [facility] D AREA D AREA CARE AGENCY AGENCY CLIENT PER 15 MIN NONEMERGE A0100 [facility] 1 [facility] TRANSPORT ENTERPRIS MANAGEMEN ATION; ES T TAXI NONEMERGE A0100 [facility] TRANSPORT ENTERPRIS MANAGEMEN ATION; ES T TAXI BLD GLU A4253 [facility] TEST/REAG 1 MEDICAL MEDICAL T STRIPS SUPPLY SUPPLY HOME BLD GLU MON-50 HOME CARE S5108 [facility] TRAINING 1 [facility] HOME D AREA D AREA CARE AGENCY AGENCY CLIENT PER 15 MIN LANCETS A4259 [facility] PER BOX 1 MEDICAL MEDICAL OF 100 SUPPLY SUPPLY NORMAL A4256 [facility] LOW AND 1 MEDICAL MEDICAL HIGH SUPPLY SUPPLY CALIBRATO R SOLUTION/ CHIPS SPRING-PO A4258 [facility] WERED 1 MEDICAL METAL COATER SUPPLY SUPPLY FOR LANCET EACH DISPBL T4535 PERSONAL PERSONAL LINER/JARED 1 TOUCH TOUCH ELD/GUARD HOME JAIL CARE /PAD/UNDG OF OF RMNT INCONT EA INCONTINE T4541 PERSONAL PERSONAL NCE 1 TOUCH TOUCH PRODUCT HOME JAIL CARE DISPOSABL OF OF E UNDPAD LARGE EA NONEMERGE A0100 [facility] 1 [facility] TRANSPORT ENTERPRIS MANAGEMEN ATION; ES T TAXI NONEMERGE A0100 [facility] 1 [facility] TRANSPORT ENTERPRIS MANAGEMEN ATION; ES T TAXI HOME CARE S5108 [facility] TRAINING 1 [facility] HOME D AREA D AREA CARE AGENCY AGENCY CLIENT PER 15 MIN HOME CARE S5108 [facility] TRAINING 1 [facility] HOME D AREA D AREA CARE AGENCY AGENCY CLIENT PER 15 MIN HOME CARE S5108 [facility] TRAINING 1 [facility] HOME D AREA D AREA CARE AGENCY AGENCY CLIENT PER 15 MIN HOME CARE S5108 [facility] TRAINING 1 [facility]UM[facility] HOME D AREA D AREA CARE AGENCY AGENCY CLIENT PER 15 MIN SKIN TEST 78698 BALJIT SMILEY 1 OSIEL CARTAGENA [facility] SIS DEPARTM DEPARTM INTRADERM AL HOME CARE S5108 [facility] TRAINING 1 [place] HOME D AREA D AREA CARE AGENCY AGENCY CLIENT PER 15 MIN HOME CARE S5108 [facility] TRAINING 1 [facility] HOME D AREA D AREA CARE AGENCY AGENCY CLIENT PER 15 MIN HOME CARE S5108 [facility] TRAINING 1 C[facility] HOME D AREA D AREA CARE AGENCY AGENCY CLIENT PER 15 MIN HOME CARE S5108 [facility] TRAINING 1 [place] HOME D AREA D AREA CARE AGENCY AGENCY CLIENT PER 15 MIN HOME CARE S5108 [facility] TRAINING 1 [facility]UM[facility] HOME D AREA D AREA CARE AGENCY AGENCY CLIENT PER 15 MIN HOME CARE S5108 [facility] TRAINING 1 [facility]UM[facility] HOME D AREA D AREA CARE AGENCY AGENCY CLIENT PER 15 MIN HOME CARE S5108 [facility] TRAINING 1 CUM[facility] HOME D AREA D AREA CARE AGENCY AGENCY CLIENT PER 15 MIN HOME CARE S5108 [facility] TRAINING 1 CUM[facility] HOME D AREA D AREA CARE AGENCY AGENCY CLIENT PER 15 MIN HOME CARE S5108 [facility] TRAINING 1 [place] HOME D AREA D AREA CARE AGENCY AGENCY CLIENT PER 15 MIN PROTHROMB 32298 [facility] IN TIME 1 O MEDICAL O MEDICAL ASSOC LA ASSOC LA HOME CARE S5108 [facility] TRAINING 1 [place] HOME D AREA D AREA CARE AGENCY AGENCY CLIENT PER 15 MIN NONEMERGE A0100 [facility] TRANSPORT ENTERPRIS MANAGEMEN ATION; ES T TAXI NONEMERGE A0100 [facility] TRANSPORT ENTERPRIS MANAGEMEN ATION; ES T TAXI NONEMERGE A0100 [facility] [place] 1 [facility]ANS[facility] HEALTH TRANSPORT ENTERPRIS MANAGEMEN ATION; ES T TAXI NONEMERGE A0100 [facility] [place] 1 [facility] TRANSPORT ENTERPRIS MANAGEMEN ATION; ES T TAXI HOME CARE S5108 [facility] TRAINING 1 [place] HOME D AREA D AREA CARE AGENCY AGENCY CLIENT PER 15 MIN BLOOD 58171 [facility] CO COUNT 1 HOSP INC HOSP INC COMPLETE AUTO&AUTO DIFRNTL WBC COLLECTIO 17895 [facility] N VENOUS 1 HOSP INC H[place] [address] [facility] LIPASE [address] PELVIS 97298 [facility] 1 HOSP INC HOSP INC W/[place] [address] [facility] OL[facility] JENNIFER ABDOMEN & 1 IMAGING & PELVIS W/CONTRAS INTERVENT T I MATERIAL RADEX 05973 [facility] JENNIFER ABDOMEN 1 1 IMAGING & [place] [address] [facility] AMYLASE 1 HOSP INC HOSP INC RADEX 55262 [facility] ABDOMEN 1 HOSP INC HOSP INC COMPL W/DCBTS&/ [place] [address] [facility] ABDOMEN 1 HOSP INC HOSP INC W/CONTRAS T MATERIAL NONINVASI 38641 [facility] VE 1 HOSP INC HOSP INC EAR/PULSE OXIMETRY SINGLE DETER COMPREHEN 68444 [facility] SIVE 1 HOSP INC HOSP INC METABOLIC PANEL URNLS DIP 65911 [facility] 1 HOSP INC HOSP INC STICK/TAB LET RGNT AUTO W/O MICROSCOP Y ECG 46022 [facility] ROUTINE 1 HOSP INC HOSP INC ECG W/LEAST 12 LDS TRCG ONLY W/O I&R AMBULANCE A0429 [facility] SERVICE 1 EMS EMS BLS EMERGENCY TRANSPORT GROUND A0425 [facility] MILEAGE 1 EMS EMS PER STATUTE MILE NONEMERGE A0100 [facility] TRANSPORT ENTERPRIS MANAGEMEN ATION; ES T TAXI HOME CARE S5108 [facility] TRAINING 1 [facility] AREA D AREA CARE AGENCY AGENCY CLIENT PER 15 MIN HOME CARE S5108 [facility] 1 [facility] CARE AGENCY AGENCY CLIENT PER 15 MIN NONEMERGE A0100 [facility] 1 [facility] TRANSPORT ENTERPRIS MANAGEMEN ATION; ES T TAXI NONEMERGE A0100 [facility] TRANSPORT ENTERPRIS MANAGEMEN ATION; ES T TAXI NONEMERGE A0100 [facility] TRANSPORT ENTERPRIS MANAGEMEN ATION; ES T TAXI HOME CARE S5108 [facility] 1 [facility] HOME D AREA D AREA CARE AGENCY AGENCY CLIENT PER 15 MIN HOME CARE S5108 [facility] TRA[facility]ING 1 [place] HOME D AREA D AREA CARE AGENCY AGENCY CLIENT PER 15 MIN HOME CARE S5108 [facility] TRAINING 1 [place] HOME D AREA D AREA CARE AGENCY AGENCY CLIENT PER 15 MIN NONEMERGE A0100 [facility] 1 [facility] TRANSPORT ENTERPRIS MANAGEMEN ATION; ES T TAXI HOME CARE S5108 [facility] TRA[facility] 1 [place] HOME D AREA D AREA CARE AGENCY AGENCY CLIENT PER 15 MIN HOME CARE S5108 [facility] TRAINING 1 [place] [facility] HOME D AREA D AREA CARE AGENCY AGENCY CLIENT PER 15 MIN HOME CARE S5108 [facility] TRAINING 1 [place] HOME D AREA D AREA CARE AGENCY AGENCY CLIENT PER 15 MIN NONEMERGE A0100 [facility] 1 [facility] TRANSPORT ENTERPRIS MANAGEMEN ATION; ES T TAXI NONEMERGE A0100 [facility] 1 [facility] TRANSPORT ENTERPRIS MANAGEMEN ATION; ES T TAXI HOME CARE S5108 [facility] TRAINING 1 [place] D AREA D AREA CARE AGENCY AGENCY CLIENT PER 15 MIN NONEMERGE A0100 [facility] 1 [facility] TRANSPORT ENTERPRIS MANAGEMEN ATION; ES T TAXI NONEMERGE A0100 [facility] 1 [facility] TRANSPORT ENTERPRIS MANAGEMEN ATION; ES T TAXI HOME CARE S5108 [facility] TRAINING 1 [place] HOME D AREA D AREA CARE AGENCY AGENCY CLIENT PER 15 MIN NONEMERGE A0100 [facility] 1 [facility] TRANSPORT ENTERPRIS MANAGEMEN ATION; ES T TAXI NONEMERGE A0100 [facility] 0 [facility] TRANSPORT ENTERPRIS MANAGEMEN ATION; ES T TAXI HOME CARE S5108 [facility] 0 [facility] HOME D AREA D AREA CARE AGENCY AGENCY CLIENT PER 15 MIN LIPID 58497 [facility] PANEL 0 O MEDICAL O MEDICAL ASSOC LA ASSOC LA COLLECTIO 05693 [facility] N VENOUS 0 O MEDICAL O MEDICAL BLOOD ASSOC LA ASSOC LA VENIPUNCT URE PROTHROMB 80303 [facility] O MEDICAL O MEDICAL ASSOC LA ASSOC LA NONEMERGE A0100 [facility] 0 [facility] TRANSPORT ENTERPRIS MANAGEMEN ATION; ES T TAXI NONEMERGE A0100 [facility] 0 [facility] TRANSPORT ENTERPRIS MANAGEMEN ATION; ES T TAXI HOME CARE S5108 [facility] TRAINING 0 [facility] D AREA D AREA CARE AGENCY AGENCY CLIENT PER 15 MIN HOME CARE S5108 [facility] TRAINING 0 [facility] D AREA D AREA CARE AGENCY AGENCY CLIENT PER 15 MIN HOME CARE S5108 [facility] TRAINING 0 [facility] D AREA D AREA CARE AGENCY AGENCY CLIENT PER 15 MIN NONEMERGE A0100 [facility] 0 [facility] TRANSPORT ENTERPRIS MANAGEMEN ATION; ES T TAXI NONEMERGE A0100 [facility] 0 [facility] TRANSPORT ENTERPRIS MANAGEMEN ATION; ES T TAXI NONEMERGE A0100 [facility] 0 [facility] TRANSPORT ENTERPRIS MANAGEMEN ATION; ES T TAXI PROTHROMB 92075 [facility] O MEDICAL O MEDICAL ASSOC LA ASSOC LA BLOOD 09231 [facility] COUNT 0 O MEDICAL O MEDICAL COMPLETE ASSOC LA ASSOC LA AUTO&AUTO DIFRNTL WBC COLLECTIO 72719 [facility] N VENOUS 0 O MEDICAL O MEDICAL BLOOD ASSOC LA ASSOC LA VENIPUNCT URE HEMOGLOBI 16244 [facility] N 0 O MEDICAL O MEDICAL GLYCOSYLA ASSOC LA ASSOC LA DOTTIE A1C COMPREHEN 05313 [facility] SIVE 0 O MEDICAL O MEDICAL METABOLIC ASSOC LA ASSOC LA PANEL NONEMERGE A0100 [facility] 0 [facility] TRANSPORT ENTERPRIS MANAGEMEN ATION; ES T TAXI HOME CARE S5108 [facility] 0 [facility] D AREA D AREA CARE AGENCY AGENCY CLIENT PER 15 MIN NONEMERGE A0100 [facility] 0 [facility] TRANSPORT ENTERPRIS MANAGEMEN ATION; ES T TAXI HOME CARE S5108 [facility] 0 [facility] [place] [facility] AREA CARE AGENCY AGENCY CLIENT PER 15 MIN NONEMERGE A0100 [facility] 0 [facility] TRANSPORT ENTERPRIS MANAGEMEN ATION; ES T TAXI NONEMERGE A0100 [facility] 0 [facility] TRANSPORT ENTERPRIS MANAGEMEN ATION; ES T TAXI NONEMERGE A0100 [facility] 0 [facility] TRANSPORT ENTERPRIS MANAGEMEN ATION; ES T TAXI NONEMERGE A0100 [facility] 0 [facility] TRANSPORT ENTERPRIS MANAGEMEN ATION; ES T TAXI NONEMERGE A0100 [facility] 0 [facility] TRANSPORT ENTERPRIS MANAGEMEN ATION; ES T TAXI HOME CARE S5108 [facility] 0 [facility] [place] [facility] D AREA CARE AGENCY AGENCY CLIENT PER 15 MIN NONEMERGE A0100 [facility] 0 [facility] TRANSPORT ENTERPRIS MANAGEMEN ATION; ES T TAXI NONEMERGE A0100 [facility] 0 [facility] TRANSPORT ENTERPRIS MANAGEMEN ATION; ES T TAXI HOME CARE S5108 [facility] 0 [facility] [place] [facility] D AREA CARE AGENCY AGENCY CLIENT PER 15 MIN NONEMERGE A0100 [facility] 0 [facility] TRANSPORT ENTERPRIS MANAGEMEN ATION; ES T TAXI NONEMERGE A0100 [facility] 0 [facility] TRANSPORT ENTERPRIS MANAGEMEN ATION; ES T TAXI HOME CARE S5108 [facility] 0 [facility] AREA D AREA CARE AGENCY AGENCY CLIENT PER 15 MIN NONEMERGE A0100 [facility] 0 [facility] TRANSPORT ENTERPRIS MANAGEMEN ATION; ES T TAXI NONEMERGE A0100 [facility] 0 [facility] TRANSPORT ENTERPRIS MANAGEMEN ATION; ES T TAXI HOME CARE S5108 [facility] TRAINING 0 [facility] HOME AREA D AREA CARE AGENCY AGENCY CLIENT PER 15 MIN HOME CARE S5108 [facility] TRAINING 0 [facility] AREA D AREA CARE AGENCY AGENCY CLIENT PER 15 MIN HOME CARE S5108 [facility] TRAINING 0 [facility] AREA D AREA CARE AGENCY AGENCY CLIENT PER 15 MIN HOME CARE S5108 [facility] TRAINING 0 [facility] B[facility] AREA D AREA CARE AGENCY AGENCY CLIENT PER 15 MIN NONEMERGE A0100 [facility] 0 [facility] TRANSPORT ENTERPRIS MANAGEMEN ATION; ES T TAXI NONEMERGE A0100 [facility] 0 [facility] TRANSPORT ENTERPRIS MANAGEMEN ATION; ES T TAXI HOME CARE S5108 [facility] TRAINING 0 [facility] AREA D AREA CARE AGENCY AGENCY CLIENT PER 15 MIN INCONTINE T4541 PERSONAL PERSONAL NCE 0 TOUCH TOUCH PRODUCT HOME JAIL CARE DISPOSABL OF OF E UNDPAD LARGE EA DISPBL T4535 PERSONAL PERSONAL LINER/JARED 0 TOUCH TOUCH ELD/GUARD HOME JAIL CARE /PAD/UNDG OF OF RMNT INCONT EA NONEMERGE A0100 [facility] 0 [facility] TRANSPORT ENTERPRIS MANAGEMEN ATION; ES T TAXI NONEMERGE A0100 [facility] 0 [facility] TRANSPORT ENTERPRIS MANAGEMEN ATION; ES T TAXI HOME CARE S5108 [facility] TRAINING 0 [facility] D AREA CARE AGENCY AGENCY CLIENT PER 15 MIN HOME CARE S5108 [facility] TRAINING 0 [facility] D AREA CARE AGENCY AGENCY CLIENT PER 15 MIN NONEMERGE A0100 [facility] 0 [facility] ENTERPRIS MANAGEMEN ATION; ES T T[place]I NONEMERGE A0100 [facility] 0 [facility]SP[facility] ENTERPRIS MANAGEMEN ATION; ES T T[place]I NONEMERGE A0100 [facility] 0 [facility] ENTERPRIS MANAGEMEN ATION; ES T [facility] CARE S5108 [facility] TRAINING 0 [facility] D AREA D AREA CARE AGENCY AGENCY CLIENT PER 15 MIN HOSPITAL [id number] [facility] DISCHAR[facility] 0 D [facility] MANAGEMEN PHYSICIA T 30 MIN/< SBSQ 66966 [facility] 0 D [facility] 25 PHYSICIA MINUTES CV STRS 28350 BARB BARB TST 0 PAT PAT XERS&/OR RX CONT ECG W/O I&R NONINVASI [id number] [facility] VE 0 [facility]P INC HOSP INC EAR/PULSE OXIMETRY SINGLE DETER GROUND [id number] [facility] MILEAGE 0 EMS EMS PER STATUTE MILE OBSERVATI [id number] [facility] LANGFEL[facility] ON/INPATI 0 [facility] S CARE 55 MINUTES COLLECTIO 57431 [facility] N VENOUS 0 [facility]OSP INC [facility] INC BLOOD VENIPUNCT URE BASIC 31034 [facility] METABOLIC 0 [facility]OSP INC [facility]OSP INC PANEL CALCIUM TOTAL DUPLEX 28919 [facility] SCAN 0 [facility]OSP INC HOSP INC EXTRACRAN IAL ART COMPL BI STUDY BLOOD 87153 [facility] COUNT 0 [facility]OSP INC [facility]OSP INC COMPLETE AUTO&AUTO DIFRNTL WBC PROTHROMB 72921 [facility] IN TIME 0 HOSP INC HOSP INC CREATINE 67597 [facility] KINASE MB 0 [facility] [address] [facility] THYROID 0 HOSP INC HOSP INC STIMULATI NG HORMONE TSH CREATINE 65675 [facility] KINASE [place] [address] [facility] TROPONIN 0 HOSP INC HOSP INC QUANTITAT TIKA INITIAL 48780 [facility] 0 D [facility] 70 PHYSICIA MINUTES AMB A0427 [facility] SERVICE 0 EMS EMS ALS EMERGENCY TRANSPORT LEVEL 1 NONEMERGE A0100 [facility] 0 [facility] ENTERPRIS MANAG[place] [address] [facility] TROPONIN 0 HOSP INC HOSP INC QUANTITAT TIKA CREATINE 40260 [facility] KINASE 0 HOSP INC HOSP INC TOTAL CREATINE 75872 [facility] KINASE MB 0 HOSP INC HOSP INC FRACTION ONLY THROMBOPL 82892 [facility] ASTIN 0 HOSP INC HOSP INC TIME PARTIAL PLASMA/WH OLE BLOOD RADIOLOGI 19796 [facility] C EXAM 0 HOSP INC HOSP INC CHEST 2 VIEWS FRONTAL&[place] [address] [facility] HEAD/BRAI 0 HOSP INC HOSP INC N W/O CONTRAST MATERIAL PROTHROMB 48152 [facility] IN TIME 0 HOSP INC HOSP INC ECG 00480 EMERG[facility] MAR ROUTINE 0 COVERAGE ECG W/LEAST CORPORATI 12 LDS I&R ONLY BLOOD 62026 [facility] COUNT 0 [facility]OSP INC HOSP INC COMPLETE AUTO&AUTO DIFRNTL WBC CRITICAL 41548 [facility] MAR CARE 0 COVERAGE ILL/INJUR ED CORPORATI PATIENT INIT 30-74 MIN COLLECTIO 50299 [facility] N VENOUS 0 [facility] H[facility]P INC BLOOD VENIPUNCT URE COMPREHEN [id number] [facility] SIVE 0 HOSP INC H[facility]P INC METABOLIC PANEL NONINVASI 97523 [facility] VE 0 HOSP INC H[facility] INC EAR/PULSE OXIMETRY SINGLE DETER ECHO [id number] [facility] TTHRC R-T 0 HOSP INC [facility] 2D W/WOM-MOD E COMPL SPEC&COLR D ECG 07781 [facility] ROUTINE 0 HOSP INC HOSP INC ECG W/LEAST 12 LDS TRCG ONLY W/O I&R THER 62683 [facility] PROPH/DX 0 HOSP INC HOSP INC NJX IV PUSH SINGLE/1S T SBST/DRUG NONEMERGE A0100 [facility] TRANSPORT ENTERPRIS MANAGEMEN ATION; ES T [facility] S5108 [facility] TRAINING 0 [facility] AGENCY AGENCY CLIENT PER 15 MIN NONEMERGE A0100 [facility] 0 [facility] TRANSPORT ENTERPRIS MANAGEMEN ATION; ES T [facility] NONEMERGE A0100 [facility] 0 [facility] TRANSPORT ENTERPRIS MANAGEMEN ATION; ES T [facility] S5108 [facility] TRAINING 0 [facility] AGENCY AGENCY CLIENT PER 15 MIN HOME CARE S5108 [facility] TRAINING 0 [facility] CARE AGENCY AGENCY CLIENT PER 15 MIN NONEMERGE A0100 [facility] 0 [facility] TRANSPORT ENTERPRIS MANAGEMEN ATION; ES T [facility] NONEMERGE A0100 [facility] 0 [facility] TRANSPORT ENTERPRIS MANAGEMEN ATION; ES T [facility] NONEMERGE A0100 [facility] 0 [facility] TRANSPORT ENTERPRIS MANAGEMEN ATION; ES T [facility] S5108 [facility] TRAINING 0 [facility] AGENCY AGENCY CLIENT PER 15 MIN HOME CARE S5108 [facility] TRAINING 0 [facility] CARE AGENCY AGENCY CLIENT PER 15 MIN HOME CARE S5108 [facility] TRAINING 0 [facility]A CARE AGENCY AGENCY CLIENT PER 15 MIN HOME CARE S5108 [facility] TRAINING 0 [facility] CARE AGENCY AGENCY CLIENT PER 15 MIN NONEMERGE A0100 [facility] 0 [facility] TRANSPORT ENTERPRIS MANAGEMEN ATION; ES T [facility] NONEMERGE A0100 [facility] 0 [facility] TRANSPORT ENTERPRIS MANAGEMEN ATION; ES T [facility] NONEMERGE A0100 [facility] 0 [facility] TRANSPORT ENTERPRIS MANAGEMEN ATION; ES T [facility] S5108 [facility] TRAINING 0 [facility] AGENCY AGENCY CLIENT PER 15 MIN PROTHROMB 81041 [facility] ALVES IN TIME 0 O MEDICAL O MEDICAL ASSOC LA ASSOC LA NONEMERGE A0100 [facility] 0 [facility] TRANSPORT ENTERPRIS MANAGEMEN ATION; ES T [facility] S5108 [facility] TRAINING 0 [facility] CARE AGENCY AGENCY CLIENT PER 15 MIN NONEMERGE A0100 [facility] 0 [facility] TRANSPORT ENTERPRIS MANAGEMEN ATION; ES T [facility] NONEMERGE A0100 [facility] 0 [facility] TRANSPORT ENTERPRIS MANAGEMEN ATION; ES T [facility] S5108 [facility] TRAINING 0 [facility] CARE AGENCY AGENCY CLIENT PER 15 MIN NONEMERGE A0100 [facility] 0 [facility] TRANSPORT ENTERPRIS MANAGEMEN ATION; ES T [facility] NONEMERGE A0100 [facility] 0 [facility] TRANSPORT ENTERPRIS MANAGEMEN ATION; ES T [facility] S5108 [facility] WLILAMS TRAINING 0 [facility] CARE AGENCY AGENCY CLIENT PER 15 MIN HOME CARE S5108 [facility] TRAINING 0 [facility] CARE AGENCY AGENCY CLIENT PER 15 MIN NONEMERGE A0100 [facility] 0 [facility] TRANSPORT ENTERPRIS MANAGEMEN ATION; ES T [facility] NONEMERGE A0100 [facility] 0 [facility] TRANSPORT ENTERPRIS MANAGEMEN ATION; ES T [facility] S5108 [facility] TRAINING 0 [facility] CARE AGENCY AGENCY CLIENT PER 15 MIN NONEMERGE A0100 [facility] 0 [facility] TRANSPORT ENTERPRIS MANAGEMEN ATION; ES T [facility] NONEMERGE A0100 [facility] 0 [facility] TRANSPORT ENTERPRIS MANAGEMEN ATION; ES T [facility] S5108 [facility] TRAINING 0 [facility] CARE AGENCY AGENCY CLIENT PER 15 MIN NONEMERGE A0100 [facility] 0 [facility] TRANSPORT ENTERPRIS MANAGEMEN ATION; ES T [facility] NONEMERGE A0100 [facility] 0 [facility] TRANSPORT ENTERPRIS MANAGEMEN ATION; ES T [facility] S5108 [facility] WILL[facility] TRAINING 0 [facility] CARE AGENCY AGENCY CLIENT PER 15 MIN NONEMERGE A0100 [facility] 0 [facility] TRANSPORT ENTERPRIS MANAGEMEN ATION; ES T [facility] NONEMERGE A0100 [facility] 0 [facility] TRANSPORT ENTERPRIS MANAGEMEN ATION; ES T [facility] S5108 [facility] WILL[facility] TRAINING 0 [facility] CARE AGENCY AGENCY CLIENT PER 15 MIN NONEMERGE A0100 [facility] 0 [facility] TRANSPORT ENTERPRIS MANAGEMEN ATION; ES T [facility] NONEMERGE A0100 [facility] 0 [facility] TRANSPORT ENTERPRIS MANAGEMEN ATION; ES T [facility] NONEMERGE A0100 [facility] 0 [facility] TRANSPORT ENTERPRIS MANAGEMEN ATION; ES T [facility] S5108 [facility] TRAINING 0 [facility] CARE AGENCY AGENCY CLIENT PER 15 MIN NONEMERGE A0100 [facility] 0 [facility] TRANSPORT ENTERPRIS MANAGEMEN ATION; ES T [facility] NONEMERGE A0100 [facility] 0 [facility] TRANSPORT ENTERPRIS MANAGEMEN ATION; ES T [facility] S5108 [facility] TRAINING 0 [facility] CARE AGENCY AGENCY CLIENT PER 15 MIN HOME CARE S5108 [facility] TRAINING 0 [facility] CARE AGENCY AGENCY CLIENT PER 15 MIN NONEMERGE A0100 [facility] 0 [facility] TRANSPORT ENTERPRIS MANAGEMEN ATION; ES T [facility] S5108 [facility] TRAINING 0 [facility] CARE AGENCY AGENCY CLIENT PER 15 MIN NONEMERGE A0100 [facility] 0 [facility] TRANSPORT ENTERPRIS MANAGEMEN ATION; ES T [facility] PHYSICAL 20700 [facility] THERAPY 0 O PT SERV EVALUATIO N THERAPEUT 84646 [facility] IC PX 1/> 0 O PT SERV AREAS EACH 15 MIN EXERCISES APPL 06000 [facility] MODALITY 0 O PT SERV 1/> AREAS TRACTION MECHANICA L APPL 04755 [facility] MODALITY 0 O PT SERV 1/> AREAS ULTRASOUN D EA 15 MIN PROTHROMB 49809 LONG ALVES IN TIME 0 O MEDICAL O MEDICAL ASSOC LA ASSOC LA NONEMERGE A0100 [facility] 0 [facility] TRANSPORT ENTERPRIS MANAGEMEN ATION; ES T [facility] S5108 [facility] TRAINING 0 [facility] CARE AGENCY AGENCY CLIENT PER 15 MIN PROTHROMB [id number] [facility] IN TIME 0 HOSP INC HOSP INC COMPREHEN 86452 [facility] SIVE 0 HOSP INC HOSP INC METABOLIC PANEL URNLS DIP 65476 [facility] 0 HOSP INC HOSP INC STICK/TAB LET RGNT AUTO W/O MICROSCOP Y ECG [id number] [facility] ROUTINE 0 HOSP INC HOSP INC ECG W/LEAST 12 LDS TRCG ONLY W/O I&R AMBULANCE [id number] [facility] SERVICE 0 EMS EMS BLS EMERGENCY TRANSPORT GROUND A0425 [facility] MILEAGE 0 [place] [address] [facility] TROPONIN 0 HOSP INC HOSP INC QUANTITAT TIKA CREATINE 21254 [facility] KINASE MB 0 HOSP INC HOSP INC FRACTION ONLY RADIOLOGI 63033 [facility] C EXAM 0 HOSP INC HOSP INC CHEST 2 VIEWS FRONTAL&L ATERAL THROMBOPL 95749 [facility] ASTIN 0 HOSP INC HOSP INC TIME PARTIAL PLASMA/WH OLE BLOOD CREATINE 70665 [facility] KINASE 0 HOSP INC HOSP INC TOTAL BLOOD 89670 [facility] COUNT 0 HOSP INC HOSP INC COMPLETE AUTO&AUTO DIFRNTL WBC COLLECTIO 61275 [facility] N VENOUS 0 HOSP INC HOSP INC BLOOD VENIPUNCT URE ECG 58541 [facility] ROUTINE 0 COVERAGE ECG W/LEAST CORPORATI 12 LDS I&R ONLY NORMAL [id number] [facility] LOW AND 0 MEDICAL MEDICAL HIGH SUPPLY SUPPLY CALIBRATO R SOLUTION/ CHIPS LANCETS A4259 [facility] PER BOX 0 MEDICAL MEDICAL OF 100 SUPPLY SUPPLY BLD GLU A4253 [facility] TEST/REAG 0 MEDICAL MEDICAL T STRIPS SUPPLY SUPPLY HOME BLD GLU MON-50 SPRING-PO A4258 [facility] WERED 0 MEDICAL METAL COATER SUPPLY SUPPLY FOR LANCET EACH HOME CARE S5108 [facility] TRAINING 0 [facility] CARE AGENCY AGENCY CLIENT PER 15 MIN NONEMERGE A0100 [facility] 0 [facility] TRANSPORT ENTERPRIS MANAGEMEN ATION; ES T [facility] NONEMERGE A0100 [facility] 0 [facility] TRANSPORT ENTERPRIS MANAGEMEN ATION; ES T [facility] S5108 [facility] TRAINING 0 [facility] AREA CARE AGENCY AGENCY CLIENT PER 15 MIN NONEMERGE A0100 [facility] 0 [facility] TRANSPORT ENTERPRIS MANAGEMEN ATION; ES T [facility] NONEMERGE A0100 [facility] 0 [facility] TRANSPORT ENTERPRIS MANAGEMEN ATION; ES T [facility] S5108 [facility] TRAINING 0 [facility] AREA CARE AGENCY AGENCY CLIENT PER 15 MIN HOME CARE S5108 [facility] TRAINING 0 [facility] D AREA CARE AGENCY AGENCY CLIENT PER 15 MIN NONEMERGE A0100 [facility] 0 [facility] TRANSPORT ENTERPRIS MANAGEMEN ATION; ES T [facility] NONEMERGE A0100 [facility] 0 [facility] TRANSPORT ENTERPRIS MANAGEMEN ATION; ES T [facility] NONEMERGE A0100 [facility] 0 [facility] TRANSPORT ENTERPRIS MANAGEMEN ATION; ES T [facility] NONEMERGE A0100 [facility] 0 [facility] TRANSPORT ENTERPRIS MANAGEMEN ATION; ES T [facility] S5108 [facility] TRAINING 0 [facility] CARE AGENCY AGENCY CLIENT PER 15 MIN HOME CARE S5108 [facility] TRAINING 0 [facility] AREA CARE AGENCY AGENCY CLIENT PER 15 MIN NONEMERGE A0100 [facility] 0 [facility] TRANSPORT ENTERPRIS MANAGEMEN ATION; ES T [facility] NONEMERGE A0100 [facility] 0 [facility] TRANSPORT ENTERPRIS MANAGEMEN ATION; ES T [facility] S5108 [facility] TRAINING 0 [facility] CARE AGENCY AGENCY CLIENT PER 15 MIN NONEMERGE A0100 [facility] 0 [facility] TRANSPORT ENTERPRIS MANAGEMEN ATION; ES T [facility] S5108 [facility] TRAINING 0 [facility] CARE AGENCY ON AGENCY ON CLIENT AGING AGING PER 15 MIN HOME CARE S5108 [facility] TRAINING 0 [facility] D AREA CARE AGENCY ON AGENCY ON CLIENT AGING AGING PER 15 MIN NONEMERGE A0100 [facility] 0 [facility] TRANSPORT ENTERPRIS MANAGEMEN ATION; ES T [facility] NONEMERGE A0100 [facility] 0 [facility] TRANSPORT ENTERPRIS MANAGEMEN ATION; ES T [facility] NONEMERGE A0100 [facility] 0 [facility] TRANSPORT ENTERPRIS MANAGEMEN ATION; ES T [facility] S5108 [facility] TRAINING 0 [facility] CARE AGENCY ON AGENCY ON CLIENT AGING AGING PER 15 MIN HOME CARE S5108 [facility] TRAINING 0 [facility] D AREA CARE AGENCY ON AGENCY ON CLIENT AGING AGING PER 15 MIN NONEMERGE A0100 [facility] 0 [facility] TRANSPORT ENTERPRIS MANAGEMEN ATION; ES T [facility] NONEMERGE A0100 [facility] 0 [facility] TRANSPORT ENTERPRIS MANAGEMEN ATION; ES T [facility] S5108 [facility] TRAINING 0 [facility] [place] [facility] D AREA CARE AGENCY ON AGENCY ON CLIENT AGING AGING PER 15 MIN NONEMERGE A0100 [facility] 0 [facility] TRANSPORT ENTERPRIS MANAGEMEN ATION; ES T [facility] S5108 [facility] TRAINING 0 [facility] CARE AGENCY ON AGENCY ON CLIENT AGING AGING PER 15 MIN NONEMERGE A0100 [facility] 0 [facility] TRANSPORT ENTERPRIS MANAGEMEN ATION; ES T [facility] PROTHROMB 99430 [facility] ALVES IN TIME 0 O MEDICAL O MEDICAL ASSOC LA ASSOC LA COLLECTIO 30553 [facility] N VENOUS 0 O MEDICAL O MEDICAL BLOOD ASSOC LA ASSOC LA VENIPUNCT URE BLOOD 02177 [facility] COUNT 0 O MEDICAL O MEDICAL COMPLETE ASSOC LA ASSOC LA AUTO&AUTO DIFRNTL WBC HEMOGLOBI 52693 [facility] AL[facility] N 0 O MEDICAL O MEDICAL GLYCOSYLA ASSOC LA ASSOC LA DOTTIE A1C COMPREHEN 79169 [facility] SIVE 0 O MEDICAL O MEDICAL METABOLIC ASSOC LA ASSOC LA PANEL NONEMERGE A0100 [facility] 0 [facility] TRANSPORT ENTERPRIS MANAGEMEN ATION; ES T [facility] S5108 [facility] TRAINING 0 [facility] CARE AGENCY ON AGENCY ON CLIENT AGING AGING PER 15 MIN SEAT E0156 [facility] [facility] ATT[facility]MEN 0 DRUG #1 DRUG #1 T WALKER NONEMERGE A0100 [facility] 0 [facility] TRANSPORT ENTERPRIS MANAGEMEN ATION; ES T [facility] WALKER E0143 [facility] FOLDING 0 DRUG #1 DRUG #1 WHEELED ADJUSTABL E/FIXED HEIGHT NONEMERGE A0100 [facility] 0 [facility] TRANSPORT ENTERPRIS MANAGEMEN ATION; ES T [facility] S5108 [facility] TRAINING 0 [facility] CARE AGENCY ON AGENCY ON CLIENT AGING AGING PER 15 MIN MISC TX T1999 [facility]AMS ITEMS & 0 [facility] SPL D AREA D AREA RETAIL AGENCY ON AGENCY ON PURCHASE AGING AGING NOC NONEMERGE A0100 [facility] 0 [facility] TRANSPORT ENTERPRIS MANAGEMEN ATION; ES T [facility] NONEMERGE A0100 [facility] 0 [facility] TRANSPORT ENTERPRIS MANAGEMEN ATION; ES T [facility] NONEMERGE A0100 [facility] 0 [facility] TRANSPORT ENTERPRIS MANAGEMEN ATION; ES T [facility] S5108 [facility] TRAINING 0 [facility] AREA CARE AGENCY ON AGENCY ON CLIENT AGING AGING PER 15 MIN NONEMERGE A0100 [facility] 0 [facility] TRANSPORT ENTERPRIS MANAGEMEN ATION; ES T [facility] NONEMERGE A0100 [facility] 0 [facility] TRANSPORT ENTERPRIS MANAGEMEN ATION; ES T [facility] S5108 [facility] WILL[facility] TRAINING 0 [facility] [place] D AREA D AREA CARE AGENCY ON AGENCY ON CLIENT AGING AGING PER 15 MIN NONEMERGE A0100 [facility] 0 [facility] TRANSPORT ENTERPRIS MANAGEMEN ATION; ES T [facility] S5108 [facility] TRAINING 0 [facility] AREA CARE AGENCY ON AGENCY ON CLIENT AGING AGING PER 15 MIN HOME CARE S5108 [facility]ARE AGENCY ON AGENCY ON CLIENT AGING AGING PER 15 MIN NONEMERGE A0100 [facility] 0 [facility] TRANSPORT ENTERPRIS MANAGEMEN ATION; ES T [facility] NONEMERGE A0100 [facility] 0 [facility] TRANSPORT ENTERPRIS MANAGEMEN ATION; ES T [facility] NONEMERGE A0100 [facility] 0 [facility] TRANSPORT ENTERPRIS MANAGEMEN ATION; ES T [facility] S5108 [facility] TRAINING 0 [facility] AREA D AREA CARE AGENCY ON AGENCY ON CLIENT AGING AGING PER 15 MIN NONEMERGE A0100 [facility] 0 [facility] TRANSPORT ENTERPRIS MANAGEMEN ATION; ES T [facility] NONEMERGE A0100 [facility] 0 [facility] TRANSPORT ENTERPRIS MANAGEMEN ATION; ES T [facility] NONEMERGE A0100 [facility] 0 [facility] TRANSPORT ENTERPRIS MANAGEMEN ATION; ES T [facility] S5108 [facility] TRAINING 0 [facility]A CARE AGENCY ON AGENCY ON CLIENT AGING AGING PER 15 MIN NONEMERGE A0100 [facility] 0 [facility] TRANSPORT ENTERPRIS MANAGEMEN ATION; ES T [facility] NONEMERGE A0100 [facility] 0 [facility] TRANSPORT ENTERPRIS MANAGEMEN ATION; ES T [facility] S5108 [facility] TRAINING 0 [facility] AREA CARE AGENCY ON AGENCY ON CLIENT AGING AGING PER 15 MIN HOME CARE S5108 [facility] TRAINING 0 [facility] D AREA CARE AGENCY ON AGENCY ON CLIENT AGING AGING PER 15 MIN HOME CARE S5108 [facility] TRAINING 0 [facility] AREA CARE AGENCY ON AGENCY ON CLIENT AGING AGING PER 15 MIN AMB [id number] [facility]ICE 0 EMS EMS ALS EMERGENCY TRANSPORT LEVEL 1 NONEMERGE A0100 [facility] 0 [facility] TRANSPORT ENTERPRIS MANAGEMEN ATION; ES T [facility] ECG 37182 [facility] ROUTINE 0 [facility]P INC HOSP INC ECG W/LEAST 12 LDS TRCG ONLY W/O I&R COMPREHEN 28506 [facility] SIVE 0 [facility]P INC H[facility]P INC METABOLIC PANEL NONINVASI 51701 [facility] VE 0 [facility] INC [facility]P INC EAR/PULSE OXIMETRY SINGLE DETER PROTHROMB 97180 [facility] IN TIME 0 [facility]OSP INC HOSP INC GROUND A0425 [facility] MILEAGE 0 EMS EMS PER STATUTE MILE THROMBOPL 59707 [facility] ASTIN 0 [facility]OSP INC HOSP INC TIME PARTIAL PLASMA/WH OLE BLOOD [facility]I 30114 [facility] & PAUL EXAMINATI ON CHEST INTERVENT SINGLE I VIEW FRONTAL CREATINE 68123 [facility] KINASE MB 0 HOSP INC HOSP INC FRACTION ONLY CREATINE 67456 [facility] KINASE 0 [place] [address] [facility] TROPONIN 0 HOSP INC HOSP INC QUANTITAT TIKA BLOOD 33421 [facility] COUNT 0 HOSP INC HOSP INC COMPLETE AUTO&AUTO DIFRNTL WBC COLLECTIO 77634 [facility] N VENOUS 0 HOSP INC HOSP INC BLOOD VENIPUNCT URE RADIOLOGI 95149 [place] SKEENS C 0 IMAGING & PAUL EXAMINATI ON KNEE INTERVENT 1/2 VIEWS I RADIOLOGI 05008 [facility] C EXAM [address] [facility] HOSP INC KNEE COMPLETE 4/MORE VIEWS NONINVASI 19175 [facility] VE 0 HOSP INC HOSP INC EAR/PULSE OXIMETRY SINGLE DETER NONEMERGE A0100 [facility] 0 [facility] TRANSPORT ENTERPRIS MANAGEMEN ATION; ES T [facility] NONEMERGE A0100 [facility] 0 [facility] TRANSPORT ENTERPRIS MANAGEMEN ATION; ES T [facility] HOME CARE S5108 [facility] TRAINING 0 [facility] AREA CARE AGENCY ON AGENCY ON CLIENT AGING AGING PER 15 MIN HOME CARE S5108 [facility] TRAINING 0 [facility] D AREA CARE AGENCY ON AGENCY ON CLIENT AGING AGING PER 15 MIN NONEMERGE A0100 [facility] 0 [facility] TRANSPORT ENTERPRIS MANAGEMEN ATION; ES T [facility] HOME C[facility] S5108 [facility] TRAINING 0 [facility] D AREA CARE AGENCY ON AGENCY ON CLIENT AGING AGING PER 15 MIN NONEMERGE A0100 [facility] 0 [facility] TRANSPORT ENTERPRIS MANAGEMEN ATION; ES T [facility] NONEMERGE A0100 [facility] 0 [facility] TRANSPORT ENTERPRIS MANAGEMEN ATION; ES T [facility] HOME CARE S5108 [facility] TRAINING 0 [facility] D AREA CARE AGENCY ON AGENCY ON CLIENT AGING AGING PER 15 MIN NONEMERGE A0100 [facility] 0 [facility] TRANSPORT ENTERPRIS MANAGEMEN ATION; ES T [facility] HOME C[facility] S5108 [facility] TRAINING 0 [facility] AREA D AREA CARE AGENCY ON AGENCY ON CLIENT AGING AGING PER 15 MIN NONEMERGE A0100 [facility] 0 [facility] TRANSPORT ENTERPRIS MANAGEMEN ATION; ES T [facility] NONEMERGE A0100 [facility] 0 [facility] TRANSPORT ENTERPRIS MANAGEMEN ATION; ES T [facility] HOME CARE S5108 [facility] TRAINING 0 [facility] AREA D AREA CARE AGENCY ON AGENCY ON CLIENT AGING AGING PER 15 MIN NONEMERGE A0100 [facility] 0 [facility] TRANSPORT ENTERPRIS MANAGEMEN ATION; ES T [facility] HOME CARE S5108 [facility] TRAINING 0 [facility] AREA D AREA CARE AGENCY ON AGENCY ON CLIENT AGING AGING PER 15 MIN NONEMERGE A0100 [facility] 0 [facility] TRANSPORT ENTERPRIS MANAGEMEN ATION; ES T [facility] NONEMERGE A0100 [facility] 0 [facility] TRANSPORT ENTERPRIS MANAGEMEN ATION; ES T [facility] HOME CARE S5108 [facility] TRAINING 0 [facility] AREA D AREA CARE AGENCY ON AGENCY ON CLIENT AGING AGING PER 15 MIN NONEMERGE A0100 [facility] 0 [facility] TRANSPORT ENTERPRIS MANAGEMEN ATION; ES T [facility] NONEMERGE A0100 [facility] 0 [facility] TRANSPORT ENTERPRIS MANAGEMEN ATION; ES T [facility] HOME CARE S5108 [facility] TRAINING 0 [facility] AREA D AREA CARE AGENCY ON AGENCY ON CLIENT AGING AGING PER 15 MIN BLD GLU A4253 [facility] TEST/REAG 0 MEDICAL MEDICAL T STRIPS SUPPLY SUPPLY HOME BLD GLU MON-50 NORMAL A4256 [facility] LOW AND 0 MEDICAL MEDICAL HIGH SUPPLY SUPPLY CALIBRATO R SOLUTION/ CHIPS LANCETS A4259 [facility] PER BOX 0 MEDICAL MEDICAL OF 100 SUPPLY SUPPLY NONEMERGE A0100 [facility]Y 0 [facility] TRANSPORT ENTERPRIS MANAGEMEN ATION; ES T [facility] HOME CARE S5108 [facility] 0 [facility] ARE[facility] D AREA CARE AGENCY ON AGENCY ON CLIENT AGING AGING PER 15 MIN NONEMERGE A0100 [facility]Y 0 [facility] TRANSPORT ENTERPRIS MANAGEMEN ATION; ES T [facility] NONEMERGE A0100 [facility] 0 [facility] TRANSPORT ENTERPRIS MANAGEMEN ATION; ES T [facility] HOME C[facility] S5108 [facility] 0 [facility] ARE[facility] D AREA CARE AGENCY ON AGENCY ON CLIENT AGING AGING PER 15 MIN HOME CARE S5108 [facility] 0 [facility] D AREA CARE AGENCY ON AGENCY ON CLIENT AGING AGING PER 15 MIN NONEMERGE A0100 [facility] 0 [facility] TRANSPORT ENTERPRIS MANAGEMEN ATION; ES T TAXI NONEMERGE A0100 [facility] 0 [facility] ENTERPRIS MANAGEMEN ATION; ES T TAXI HOME CARE [id number] [facility] TRAINING 0 [facility] AREA CARE AGENCY ON AGENCY ON CLIENT AGING AGING PER 15 MIN NONEMERGE A0100 [facility] NC[facility] 0 [facility]SP[facility] ENTERPRIS MANAGEMEN ATION; ES T TAXI NONEMERGE A0100 [facility] NC[facility] 0 [facility] TRANSP[facility] ENTERPRIS MANAGEMEN ATION; ES T TAXI HOME CARE S5108 [facility] W[facility] TRAINING 0 [facility]ALL[facility] AREA CARE AGENCY ON AGENCY ON CLIENT AGING AGING PER 15 MIN HOME CARE S5108 [facility] TRAINING 0 [facility] D AREA CARE AGENCY ON AGENCY ON CLIENT AGING AGING PER 15 MIN NONEMERGE A0100 [facility] NC[facility] 0 [facility]SP[facility] ENTERPRIS MANAGEMEN ATION; ES T TAXI BLOOD [id number] [facility] COUNT 0 O MEDICAL O MEDICAL COMPLETE ASSOC 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 DIFRNTL Y Y WBC COLLECTIO 32726 [facility] N VENOUS 0 O MEDICAL O MEDICAL BLOOD ASSOC ASSOC 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 URE Y Y RADIOLOGI [id number] Jayson NEWMAN EXAM 0 IMAGING & MARYAM L CHEST 2 VIEWS INTERVENT FRONTAL&L ION PLLC ATERAL COMPREHEN 39081 LONG ALVES SIVE 0 O MEDICAL 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 Y Y PROTHROMB 64897 LONG ALVES IN TIME 0 O MEDICAL O 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 ECG 47447 WOOMASSIMO ANGELINA, ROUTINE 0 O MEDICAL YANIRE ECG W/LEAST ASSOCIATE 12 LDS S TRCG ONLY W/O I&R NONEMERGE A0100 [facility] 0 [facility]SP[facility] ENTERPRIS MANAGEMEN ATION; ES T [facility] HOME CARE S5108 WILLAMS WILLAMS TRAINING 0 [facility] AREA D AREA CARE AGENCY ON AGENCY ON CLIENT AGING AGING PER 15 MIN HOME CARE S5108 WILLAMS WILLAMS TRAINING 0 [facility] [place] [facility] D [facility] CARE AGENCY ON AGENCY ON CLIENT AGING AGING PER 15 MIN NONEMERGE A0100 [facility] 0 [facility]SP[facility] ENTERPRIS MANAGEMEN ATION; ES T TAXI NONEMERGE A0100 [facility] 0 [facility] TRANSP[facility] ENTERPRIS MANAGEMEN ATION; ES T TAXI PROTHROMB 69255 LONG ALVES IN TIME 0 O MEDICAL O 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 RADIOLOGI 53437 Jayson RIZO EXAM 0 IMAGING & HEAVEN B CHEST 2 VIEWS INTERVENT FRONTAL&L ION PLLC ATERAL NONEMERGE A0100 [facility] NCY 0 [facility] TRANSP[facility] ENTERPRIS MANAGEMEN ATION; ES T TAXI NONEMERGE A0100 [facility] 0 [facility] TRANSPORT ENTERPRIS MANAGEMEN ATION; ES T [facility] C[facility] S5108 WILLAMS WILLAMS TRAINING 0 [facility] D AREA D AREA CARE AGENCY ON AGENCY ON CLIENT AGING AGING PER 15 MIN NONEMERGE A0100 [facility] 0 [facility]SP[facility] ENTERPRIS MANAGEMEN ATION; ES T TAXI NONEMERGE A0100 [facility] 0 [facility] TRANSP[facility] ENTERPRIS MANAGEMEN ATION; ES T [facility] HOME CARE S5108 WILLAMS WILLAMS TRAINING 0 [facility] D AREA D AREA CARE AGENCY ON AGENCY ON CLIENT AGING AGING PER 15 MIN NONEMERGE A0100 [facility] ENTERPRIS MANAGEMEN ATION; ES T TAXI NONEMERGE A0100 [facility] 0 [facility] ENTERPRIS MANAGEMEN ATION; ES T TAXI NONEMERGE A0100 [facility] 0 [facility] ENTERPRIS MANAGEMEN ATION; ES T [facility] HOME CARE S5108 [facility] TRAINING 0 [facility] D AREA D AREA CARE AGENCY ON AGENCY ON CLIENT AGING AGING PER 15 MIN NONEMERGE A0100 [facility] 0 [facility] TRAN[facility] ENTERPRIS MANAGEMEN ATION; ES T TAXI NONEMERGE A0100 [facility] 0 [facility] TRAN[facility] ENTERPRIS MANAGEMEN ATION; ES T [facility] S5108 [facility] TRAINING 0 [facility] D AREA D AREA CARE AGENCY ON AGENCY ON CLIENT AGING AGING PER 15 MIN HOME CARE S5108 [facility] TRAINING 0 [facility] D AREA D AREA CARE AGENCY ON AGENCY ON CLIENT AGING AGING PER 15 MIN HOME CARE S5108 [facility] TRAINING 0 [facility] D AREA D AREA CARE AGENCY ON AGENCY ON CLIENT AGING AGING PER 15 MIN HOME CARE S5108 [facility] TRAINING 0 [facility] D AREA D AREA CARE AGENCY ON AGENCY ON CLIENT AGING AGING PER 15 MIN HOME CARE S5108 [facility] TRAINING 0 [facility] D AREA D AREA CARE AGENCY ON AGENCY ON CLIENT AGING AGING PER 15 MIN HOME CARE S5108 [facility] TRAINING 0 [facility] D AREA D AREA CARE AGENCY ON AGENCY ON CLIENT AGING AGING PER 15 MIN HOME CARE S5108 [facility] TRAINING 0 [facility] D AREA D AREA CARE AGENCY ON AGENCY ON CLIENT AGING AGING PER 15 MIN HOME CARE S5108 [facility] TRAINING 0 [facility] D AREA D AREA CARE AGENCY ON AGENCY ON CLIENT AGING AGING PER 15 MIN HOME CARE S5108 [facility] TRAINING 0 [facility] D AREA D AREA CARE AGENCY ON AGENCY ON CLIENT AGING AGING PER 15 MIN HOME CARE S5108 [facility] TRAINING 0 [facility] D AREA D AREA CARE AGENCY ON AGENCY ON CLIENT AGING AGING PER 15 MIN HOME CARE S5108 [facility] TRAINING 0 [facility] D AREA D AREA CARE AGENCY ON AGENCY ON CLIENT AGING AGING PER 15 MIN HOME CARE S5108 [facility] WARD TRAINING 0 [facility] AREA D AREA CARE AGENCY ON AGENCY ON CLIENT AGING AGING PER 15 MIN DEBRIDEME 37336 [facility]YS HOOK, NT NAIL 0 NATHALIE ZELAYA ANY METHOD / HOME CARE S5108 [facility] TRAINING 0 [facility] HOME AREA D AREA CARE AGENCY ON AGENCY ON CLIENT AGING AGING PER 15 MIN HOME CARE S5108 [facility] TRAINING 0 [facility] HOME AREA D AREA CARE AGENCY ON AGENCY ON CLIENT AGING AGING PER 15 MIN HOME CARE S5108 [facility] TRAINING 0 [facility] AREA D AREA CARE AGENCY ON AGENCY ON CLIENT AGING AGING PER 15 MIN HOME CARE S5108 [facility] TRAINING 0 [facility] HOME AREA D AREA CARE AGENCY ON AGENCY ON CLIENT AGING AGING PER 15 MIN HOME CARE S5108 [facility] TRAINING 0 [facility] HOME AREA D AREA CARE AGENCY ON AGENCY ON CLIENT AGING AGING PER 15 MIN HOME CARE S5108 [facility] TRAINING 0 [facility] HOME D AREA D AREA CARE AGENCY ON AGENCY ON CLIENT AGING AGING PER 15 MIN HOME CARE S5108 [facility] TRAINING 0 [facility] HOME D AREA D AREA CARE AGENCY ON AGENCY ON CLIENT AGING AGING PER 15 MIN HEMOGLOBI 71303 [facility] N 0 O MEDICAL O MEDICAL GLYCOSYLA ASSOC ASSOC DOTTIE A1C 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 Y Y ALBUMIN 88057 [facility] URINE 0 AMERIC AMERIC MICROALBU HOLDING HOLDING MIN QUANTIATI VE CREATININ 65591 [facility] E OTHER 0 AMERIC 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 PROTHROMB 04774 [facility] IN TIME 0 O MEDICAL O 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 BLOOD 10015 [facility] COUNT 0 O MEDICAL O MEDICAL COMPLETE ASSOC 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 DIFRNTL Y Y WBC COLLECTIO 86066 [facility] N VENOUS 0 O MEDICAL O MEDICAL BLOOD ASSOC ASSOC 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 URE Y Y COMPREHEN 23697 [facility] SIVE 0 O MEDICAL 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 Y Y LIPID 23407 [facility] PANEL 0 O MEDICAL O 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 HOME CARE S5108 [facility] TRAINING 0 [facility] HOME D AREA AREA [facility] AGENCY ON AGENCY ON CLIENT AGING AGING PER 15 MIN HOME CARE S5108 [facility] TRAINING 0 [facility] AREA [facility] AGENCY ON AGENCY ON CLIENT AGING AGING PER 15 MIN [id number] [facility] WERED 0 MEDICAL METAL COATER SUPPLY SUPPLY FOR LANCET EACH LANCETS A4259 [facility] PER BOX 0 [facility] MEDICAL OF 100 SUPPLY SUPPLY NORMAL A4256 [facility] LOW AND 0 MEDICAL MEDICAL HIGH SUPPLY SUPPLY CALIBRATO R SOLUTION/ CHIPS BLD GLU A4253 [facility]ERTY TEST/REAG 0 MEDICAL MEDICAL T STRIPS SUPPLY SUPPLY HOME BLD GLU MON-50 HOME CARE S5108 [facility] TRAINING 0 [facility] ARE[facility] AGENCY ON AGENCY ON CLIENT AGING AGING PER 15 MIN HOME CARE S5108 [facility] TRAINING 0 [facility] HOME D [facility] AGENCY ON AGENCY ON CLIENT AGING AGING PER 15 MIN HOME CARE S5108 [facility] TRAINING 0 [facility] AGENCY ON AGENCY ON CLIENT AGING AGING PER 15 MIN FOR DIAB A5513 [facility] ONLY MX 0 D FOOT D FOOT DNSITY AND ANKLE AND ANKLE INSRT CSTM MOLD CSTM EA DIAB ONLY A5500 [facility] FIT CSTM 0 D FOOT D FOOT PREP&SPL AND ANKLE AND ANKLE SHOE MX DNSITY INSRT HOME CARE S5108 [facility] TRAINING 0 [facility] D AREA D AREA CARE AGENCY ON AGENCY ON CLIENT AGING AGING PER 15 MIN URNLS DIP 27767 [facility]ES 0 O MEDICAL O MEDICAL STICK/TAB ASSOC ASSOC LET 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 AUTO W/O Y Y MICROSCOP Y CREATININ 66153 [facility] E OTHER 0 O MEDICAL O MEDICAL SOURCE ASSOC 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 HOME CARE S5108 [facility] TRAINING 0 [facility] AREA D AREA CARE AGENCY ON AGENCY ON CLIENT AGING AGING PER 15 MIN HOME CARE S5108 [facility] TRAINING 0 [facility] D AREA D AREA CARE AGENCY ON AGENCY ON CLIENT AGING AGING PER 15 MIN HOME CARE S5108 [facility] TRAINING 0 [facility] D AREA D AREA CARE AGENCY ON AGENCY ON CLIENT AGING AGING PER 15 MIN HOME CARE S5108 [facility] TRAINING 0 [facility] D AREA D AREA CARE AGENCY ON AGENCY ON CLIENT AGING AGING PER 15 MIN HOME CARE S5108 [facility] TRAINING 0 [facility] D AREA D AREA CARE AGENCY ON AGENCY ON CLIENT AGING AGING PER 15 MIN HOME CARE S5108 [facility] TRAINING 0 [facility] D AREA D AREA CARE AGENCY ON AGENCY ON CLIENT AGING AGING PER 15 MIN RADIOLOGI 47664 [facility] C EXAM 0 HOSP INC HOSP INC KNEE COMPLETE 4/MORE VIEWS RADEX 47372 [facility] SPINE 0 IMAGING & PAUL LUMBOSACR AL 2/3 INTERVENT VIEWS I RADEX 91536 [facility] RIBS 0 IMAGING & PAUL UNILATERA L 2 VIEWS INTERVENT I THROMBOPL 58296 [facility] ASTIN 0 HOSP INC HOSP INC TIME PARTIAL PLASMA/WH OLE BLOOD RADIOLOGI 74609 [facility] C 0 IMAGING & PAUL EXAMINATI ON KNEE 3 INTERVENT VIEWS I RADEX 81128 [facility] CO RIBS UNI 0 HOSP INC HOSP INC W/POSTERO AN[place] [address] [place] [address] [facility] HEAD/BRAI 0 IMAGING & PAUL N W/O CONTRAST INTERVENT MATERIAL I COLLECTIO 92384 [facility] N VENOUS 0 [facility]P [facility] BLOOD VENIPUNCT [facility] IN[facility] J1885 [facility] KETOROLAC TROMETHAM INE PER 15 MG NONINVASI 85059 [facility] VE 0 HOSP INC H[facility]P INC EAR/PULSE OXIMETRY SINGLE DETER PROTHROMB 25870 [facility] IN TIME 0 HOSP INC HOSP INC THERAPEUT 89268 [facility] IC 0 HOSP INC HOSP INC PROPHYLAC TIC/DX INJECTION SUBQ/IM GROUND A0425 [facility] MILEAGE 0 EMS EMS PER STATUTE MILE AMBULANCE A0429 [facility] SERVICE 0 EMS EMS BLS EMERGENCY TRANSPORT HOME CARE S5108 [facility] TRAINING 0 [facility] D AREA D AREA CARE AGENCY ON AGENCY ON CLIENT AGING AGING PER 15 MIN HOME CARE S5108 [facility] TRAINING 0 [facility] D AREA D AREA CARE AGENCY ON AGENCY ON CLIENT AGING AGING PER 15 MIN HOME CARE S5108 [facility] TRAINING 0 [facility] D AREA D AREA CARE AGENCY ON AGENCY ON CLIENT AGING AGING PER 15 MIN HOME CARE S5108 [facility] TRAINING 0 [facility] D AREA D AREA CARE AGENCY ON AGENCY ON CLIENT AGING AGING PER 15 MIN DEBRIDEME 72551 [facility]OOK, ABHAY NAIL 0 NATHALIE CRUZ METHOD 6/> HOME CARE S5108 [facility] TRAINING 0 [facility] D AREA D AREA CARE AGENCY ON AGENCY ON CLIENT AGING AGING PER 15 MIN HOME CARE S5108 [facility] TRAINING 0 [facility] D AREA D AREA CARE AGENCY ON AGENCY ON CLIENT AGING AGING PER 15 MIN HOME CARE S5108 [facility] TRAINING 0 [facility] D AREA D AREA CARE AGENCY ON AGENCY ON CLIENT AGING AGING PER 15 MIN HOME CARE S5108 [facility] TRAINING 0 [facility] D AREA D AREA CARE AGENCY ON AGENCY ON CLIENT AGING AGING PER 15 MIN HOME CARE S5108 [facility] TRAINING 0 [facility] HOME D [facility] D AREA CARE AGENCY ON AGENCY ON CLIENT AGING AGING PER 15 MIN HOME CARE S5108 [facility] TRAINING 0 [facility] [place] D AREA D AREA CARE AGENCY ON AGENCY ON CLIENT AGING AGING PER 15 MIN HOME CARE S5108 [facility] TRAINING 9 [facility] [place] D AREA D AREA CARE AGENCY ON AGENCY ON CLIENT AGING AGING PER 15 MIN HOME CARE S5108 [facility] TRAINING 9 [facility] [place] [facility] D AREA CARE AGENCY ON AGENCY ON CLIENT AGING AGING PER 15 MIN HOME CARE S5108 [facility] TRAINING 9 [facility] [place] [facility] D AREA CARE AGENCY ON AGENCY ON CLIENT AGING AGING PER 15 MIN HOME CARE S5108 [facility] TRAINING 9 [facility] [place] [facility] D AREA CARE AGENCY ON AGENCY ON CLIENT AGING AGING PER 15 MIN HOME CARE S5108 [facility] TRAINING 9 [facility] ARE[facility] D AREA CARE AGENCY ON AGENCY ON CLIENT AGING AGING PER 15 MIN HOME CARE S5108 [facility] TRAINING 9 [facility] D AREA CARE AGENCY ON AGENCY ON CLIENT AGING AGING PER 15 MIN HOME CARE S5108 [facility] TRAINING 9 [facility] D AREA CARE AGENCY ON AGENCY ON CLIENT AGING AGING PER 15 MIN MISC TX T1999 [facility]AMS ITEMS & 9 [facility] D AREA D AREA RETAIL AGENCY ON AGENCY ON PURCHASE AGING AGING NOC HOME CARE S5108 [facility] TRAINING 9 [facility] HOME AREA D AREA CARE AGENCY ON AGENCY ON CLIENT AGING AGING PER 15 MIN BLD GLU A4253 [facility] TEST/REAG 9 MEDICAL MEDICAL T STRIPS SUPPLY SUPPLY HOME BLD GLU MON-50 LANCETS A4259 [facility] PER BOX 9 MEDICAL MEDICAL OF 100 SUPPLY SUPPLY HOME CARE S5108 [facility] TRAINING 9 [facility] D AREA D AREA CARE AGENCY ON AGENCY ON CLIENT AGING AGING PER 15 MIN HOME CARE S5108 [facility] TRAINING 9 [facility] D AREA D AREA CARE AGENCY ON AGENCY ON CLIENT AGING AGING PER 15 MIN DETERMINA 29173 SHARAN TSANG TION 9 [facility] S5108 [facility] TRAINING 9 [facility] HOME D AREA D AREA CARE AGENCY ON AGENCY ON CLIENT AGING AGING PER 15 MIN HOME CARE S5108 [facility] TRAINING 9 [facility] HOME D AREA D AREA CARE AGENCY ON AGENCY ON CLIENT AGING AGING PER 15 MIN HOME CARE S5108 [facility] TRAINING 9 [facility] HOME D AREA D AREA CARE AGENCY ON AGENCY ON CLIENT AGING AGING PER 15 MIN HOME CARE S5108 [facility] TRAINING 9 [facility] HOME D AREA D AREA CARE AGENCY ON AGENCY ON CLIENT AGING AGING PER 15 MIN HOME CARE S5108 [facility] TRAINING 9 [facility] HOME D AREA D AREA CARE AGENCY ON AGENCY ON CLIENT AGING AGING PER 15 MIN HOME CARE S5108 [facility] TRAINING 9 [facility] HOME D AREA D AREA CARE AGENCY ON AGENCY ON CLIENT AGING AGING PER 15 MIN HOME CARE S5108 [facility] TRAINING 9 [facility] HOME D AREA D AREA CARE AGENCY ON AGENCY ON CLIENT AGING AGING PER 15 MIN HOME CARE S5108 [facility] TRAINING 9 [facility] HOME D AREA D AREA CARE AGENCY ON AGENCY ON CLIENT AGING AGING PER 15 MIN ECG 11209 [facility]NA 9 CARDIOLOG WOOD Jones ECG Y PSC W/LEAST 12 LDS W/I&R HOME CARE S5108 WILALMS WILL[facility] TRAINING 9 [facility] HOME D AREA D AREA CARE AGENCY ON AGENCY ON CLIENT AGING AGING PER 15 MIN HOME CARE S5108 [facility] TRAINING 9 [facility] HOME D AREA D AREA CARE AGENCY ON AGENCY ON CLIENT AGING AGING PER 15 MIN HOME CARE S5108 [facility] TRAINING 9 [facility] D AREA D AREA CARE AGENCY ON AGENCY ON CLIENT AGING AGING PER 15 MIN PROTHROMB 32300 [facility] IN TIME 9 O MEDICAL O 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 LIPID 61470 [facility] O MEDICAL O 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 COLLECTIO 67358 [facility] N VENOUS 9 O MEDICAL O MEDICAL BLOOD ASSOC ASSOC 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 URE Y Y COMPREHEN 78225 [facility] SIVE 9 O MEDICAL 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 Y Y HEMOGLOBI 52393 [facility] N 9 O MEDICAL O MEDICAL GLYCOSYLA ASSOC ASSOC DOTTIE A1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 [address] [facility] THYROID 9 O MEDICAL O MEDICAL STIMULATI ASSOC ASSOC NG 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 HORMONE Y Y TSH BLOOD 32831 [facility] COUNT 9 O MEDICAL O MEDICAL COMPLETE ASSOC 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 DIFRNTL Y Y WBC HOME CARE S5108 [facility] TRAINING 9 [facility] HOME D AREA D AREA CARE AGENCY ON AGENCY ON CLIENT AGING AGING PER 15 MIN HOME CARE S5108 [facility] TRAINING 9 [facility] HOME D AREA D AREA CARE AGENCY ON AGENCY ON CLIENT AGING AGING PER 15 MIN HOME CARE S5108 [facility] TRAINING 9 [facility] HOME D AREA D AREA CARE AGENCY ON AGENCY ON CLIENT AGING AGING PER 15 MIN HOME CARE S5108 [facility] TRAINING 9 [facility] D AREA D AREA CARE AGENCY ON AGENCY ON CLIENT AGING AGING PER 15 MIN HOME CARE S5108 [facility] TRAINING 9 [facility] D AREA D AREA CARE AGENCY ON AGENCY ON CLIENT AGING AGING PER 15 MIN HOME CARE S5108 [facility] WILLAMS TRAINING 9 [facility] HOME D AREA D AREA CARE AGENCY ON AGENCY ON CLIENT AGING AGING PER 15 MIN HOME CARE S5108 [facility] TRAINING 9 [facility] D AREA D AREA CARE AGENCY ON AGENCY ON CLIENT AGING AGING PER 15 MIN HOME CARE S5108 [facility] TRAINING 9 [facility] D AREA D AREA CARE AGENCY ON AGENCY ON CLIENT AGING AGING PER 15 MIN COMPREHEN 00352 [facility] SIVE 9 HOSP INC HOSP INC METABOLIC PANEL LIPID 04545 [facility] PANEL 9 HOSP INC HOSP INC HEMOGLOBI 14172 [facility] N 9 HOSP INC HOSP INC GLYCOSYLA DOTTIE A1C BLOOD 53235 [facility] COUNT 9 HOSP INC HOSP INC COMPLETE AUTO&AUTO DIFRNTL WBC PROTHROMB 64835 [facility] IN TIME 9 O MEDICAL O 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 PROTHROMB 87044 [facility] IN TIME 9 O MEDICAL O 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 ANK FT L1971 [facility] ORTHOTIC 9 D FOOT D FOOT PLSTC/OTH AND ANKLE AND ANKLE MATL W/ANK JNT PREFAB [facility] A4258 [facility] WERED 9 MEDICAL METAL COATER SUPPLY SUPPLY FOR LANCET EACH LANCETS A4259 [facility] PER BOX 9 MEDICAL MEDICAL OF 100 SUPPLY SUPPLY BLD GLU A4253 [facility] TEST/REAG 9 MEDICAL MEDICAL T STRIPS SUPPLY SUPPLY HOME BLD GLU MON-50 PROTHROMB 40954 [facility] IN TIME 9 O MEDICAL O 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 COLLECTIO 39992 [facility] N VENOUS 9 O MEDICAL O MEDICAL BLOOD ASSOC ASSOC 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 URE Y Y BLOOD 58986 [facility] COUNT 9 HOSP INC HOSP INC COMPLETE AUTO&AUTO DIFRNTL WBC COLLECTIO 65146 [facility] N VENOUS 9 HOSP INC HOSP INC BLOOD VENIPUNCT URE COMPREHEN 83308 [facility] SIVE 9 HOSP INC HOSP INC METABOLIC PANEL THROMBOPL 57788 [facility] ASTIN 9 HOSP INC HOSP INC TIME PARTIAL PLASMA/WH OLE BLOOD RADIOLOGI 11169 Jayson RIZO 9 IMAGING & HEAVEN Mckeon EXAMINATI ON CHEST INTERVENT [place] [address] [facility] TROPONIN 9 HOSP INC HOSP INC QUANTITAT TIKA CREATINE 19200 [facility] KINASE MB 9 HOSP INC HOSP INC FRACTION ONLY CREATINE 93261 [facility] KINASE 9 HOSP INC HOSP INC TOTAL PROTHROMB 81660 [facility] IN TIME 9 HOSP INC HOSP INC NONINVASI 24129 [facility] VE 9 HOSP INC HOSP INC EAR/PULSE OXIMETRY SINGLE DETER INJECTION J2060 [facility] 9 HOSP INC HOSP INC LORAZEPAM 2 MG ECG 79265 [facility] ROUTINE 9 HOSP INC HOSP INC ECG W/LEAST 12 LDS TRCG ONLY W/O I&R THER 56545 [facility] PROPH/DX 9 HOSP INC HOSP INC NJX IV PUSH SINGLE/1S T SBST/DRUG GROUND A0425 [facility] MILEAGE 9 EMS EMS PER STATUTE MILE AMB A0427 [facility] SERVICE 9 EMS EMS ALS EMERGENCY TRANSPORT LEVEL 1 COMPREHEN 89098 [facility] SIVE 9 O MEDICAL 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 Y Y PROTHROMB 16084 [facility] IN TIME 9 O MEDICAL O 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 HEMOGLOBI 68625 [facility] N 9 O MEDICAL O MEDICAL GLYCOSYLA ASSOC ASSOC DOTTIE A1C 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 Y Y COLLECTIO 87253 [facility] N VENOUS 9 O MEDICAL O MEDICAL BLOOD ASSOC ASSOC 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 URE Y Y DUP-SCAN 80001 IZABEL[facility] BAKER XTR VEINS 9 CARLITOS Cage COMPLETE RADIOLOGY ASSOC BILATERAL STUDY DUP-SCAN 22647 [facility] XTR VEINS 9 [facility] JUSTINE Jones D [facility] STUDY ECG 26200 [facility] ROUTINE 9 HOSP INC HOSP INC ECG W/LEAST 12 LDS TRCG ONLY W/O I&R GROUND A0425 [facility] MILEAGE 9 EMS EMS PER STATUTE MILE AMBULANCE A0429 [facility] SERVICE 9 EMS EMS [place] [address] [facility] TROPONIN 9 HOSP INC HOSP INC QUANTITAT TIKA CREATINE 51897 [facility] KINASE 9 HOSP INC HOSP INC TOTAL CREATINE 08698 [facility] KINASE MB 9 HOSP INC HOSP INC FRACTION ONLY RADEX 36495 [facility] SPINE 9 IMAGING & HEAVEN B CERVICAL 4 OR 5 INTERVENT VIEWS ION PLLC RADEX 90234 [facility] SPINE 9 HOSP INC HOSP INC CERVICAL [address] [place] [address] [facility] HEAD/BRAI 9 HOSP INC HOSP INC N W/O CONTRAST MATERIAL THROMBOPL 59829 [facility] ASTIN 9 HOSP INC HOSP INC TIME PARTIAL PLASMA/WH OLE BLOOD COLLECTIO 35380 [facility] N VENOUS 9 HOSP INC HOSP INC BLOOD VENIPUNCT URE PROTHROMB 28842 [facility] IN TIME 9 HOSP INC HOSP INC COMPREHEN 25395 [facility] SIVE 9 HOSP INC HOSP INC METABOLIC PANEL BLOOD 82461 [facility] COUNT 9 HOSP INC HOSP INC COMPLETE AUTOMATED COLLECTIO 29990 [facility] N VENOUS 9 O MEDICAL O MEDICAL BLOOD ASSOC ASSOC 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 URE Y Y PROTHROMB 27380 [facility] IN TIME 9 O MEDICAL O 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 DEBRIDEME 79984 [facility], NT NAIL 9 NATHALIE ZELAYA ANY METHOD 6/> BLD GLU A4253 [facility] TEST/REAG 9 MEDICAL MEDICAL T STRIPS SUPPLY SUPPLY HOME BLD GLU MON-50 LANCETS A4259 [facility] PER BOX 9 MEDICAL MEDICAL OF 100 SUPPLY SUPPLY NON-INVAS 60102 [facility] IVE 9 NATHALIE ZELAYA PHYSIOLOG IC STUDY EXTREMITY 3 LEVLS DEBRIDEME 04566 [facility] NT NAIL 9 NATHALIE ZELAYA ANY METHOD 6/> SKIN TEST 38704 DHS/CO BALJIT 9 [facility] ACCT DEPARTMEN INTRADERM T AL ADD LW L2820 [facility] EXT ORTH 9 D FOOT D FOOT SFT AND ANKLE AND ANKLE INTERFCE MOLD BELW KNEE ADD LOW L2330 [facility] EXT LACER 9 D FOOT D FOOT MOLD PT AND ANKLE AND ANKLE MDL C[employer] ORTHOTIC ONLY ANK FT L1940 [facility] ORTHOTIC 9 D FOOT D FOOT PLASTIC/O AND ANKLE AND ANKLE TH MATERIAL CUSTOM YANELI PROTHROMB 82410 [facility] IN TIME 9 O MEDICAL O 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 COLLECTIO 17611 [facility] N VENOUS 9 O MEDICAL O MEDICAL BLOOD ASSOC ASSOC 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 URE Y Y COLLECTIO 00849 [facility] N VENOUS 9 O MEDICAL O MEDICAL BLOOD ASSOC ASSOC 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 URE Y Y BLOOD 14662 [facility] COUNT 9 O MEDICAL O MEDICAL COMPLETE ASSOC 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 DIFRNTL Y Y WBC COMPREHEN 12582 [facility] SIVE 9 O MEDICAL 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 Y Y PROTHROMB 82202 [facility] IN TIME 9 O MEDICAL O 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 ECG [id number] [facility], ROUTINE 9 O MEDICAL YANIRE ECG W/LEAST ASSOCIATE 12 LDS S TRCG ONLY W/O I&R PROTHROMB 34264 [facility] O MEDICAL O 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 COLLECTIO 48863 [facility] N VENOUS 9 O MEDICAL O MEDICAL BLOOD ASSOC ASSOC 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 URE Y Y COMPREHEN 69947 [facility] SIVE 9 O MEDICAL 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 Y Y BLOOD 40455 [facility] COUNT 9 O MEDICAL O MEDICAL COMPLETE ASSOC 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 DIFRNTL Y Y WBC LANCETS A4259 [facility] PER BOX 9 MEDICAL MEDICAL OF 100 SUPPLY SUPPLY BLD GLU A4253 [facility] TEST/REAG 9 MEDICAL MEDICAL T STRIPS SUPPLY SUPPLY HOME BLD GLU MON-50 NORMAL A4256 [facility] LOW AND 9 MEDICAL MEDICAL HIGH SUPPLY SUPPLY CALIBRATO R SOLUTION/ [place] SPRING-PO A4258 [facility] WERED 9 MEDICAL METAL COATER SUPPLY SUPPLY FOR LANCET EACH DEBRIDEME 60975 A[facility] WOLFE, NT NAIL 9 ESA ESA ANY ER J ER J METHOD 6/> COLLECTIO 44589 [facility] N VENOUS 9 O MEDICAL O MEDICAL BLOOD ASSOC ASSOC 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 URE Y Y COMPREHEN 47085 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 Y Y PROTHROMB 57586 [facility] O MEDICAL O 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 LIPID 93863 [facility] PANEL 9 O MEDICAL O 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 KNEE L1810 [facility] 9 [facility] ELASTIC INC INC JOINTS PREFAB CUSTOM FIT LUMB-SACR L0631 [facility] AL ORTHOS 9 [facility] SAGIT INC INC CNTRL RIGID A&P PREFAB ANKLE L1902 [facility] ORTH 9 [facility] ANKLE INC INC GAUNT/[place] [address] ASSOCIATE DELILAH, SURG 9 D ABDIAZIZ S PATHOLOGY PATHOLOGI [facility] ROSCOPIC EXAM PROTHROMB 81375 ENRIQUE ENRIQUE IN TIME 9 CO [facility] INC ECG 49245 ENRIQUE ENRIQUE ROUTINE [address] [facility] W/LEAST INC INC 12 LDS TRCG ONLY W/O I&R INJECTION [id number] [facility] 9 [facility] HCL PER INC INC 1 MG COMPREHEN 08042 [facility] SIVE [address] [facility] PANEL INC INC HYSTEROSC 32644 [facility] OPY BX [address] [facility] UM&/POLYP INC INC C W/WO D&C BLOOD 33624 [facility] COUNT 9 [facility] AUTO&AUTO INC INC DIFRNTL WBC ANES 95611 [facility] [place], HYSTEROSC 9 ANESTHESI BEVERLY D OPY&/HYST A PC EROSALPIN GOGRAPHY W/BX INJECTION [id number] [facility] 9 [facility] [address] [facility] INC INC TROMETHAM INE PER 15 MG INJECTION J2405 [facility] 9 [facility] PER 1 MG RADIOLOGI 47612 [facility] C EXAM 9 CO AR CHEST [address] [facility] VIEWS INC INC FRONTAL&L ATERAL GONADOTRO 28859 [facility] PIN 9 [facility] INC INC QUALITATI VE CREATINE 53351 [facility] KINASE 8 O MEDICAL O MEDICAL TOTAL ASSOC 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 BLOOD 45907 [facility] COUNT 8 O MEDICAL O MEDICAL COMPLETE ASSOC 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 DIFRNTL Y Y WBC COLLECTIO 87840 [facility] N VENOUS 8 O MEDICAL O MEDICAL BLOOD ASSOC ASSOC 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 URE Y Y COMPREHEN 22570 [facility] S[facility] O MEDICAL 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 Y Y PROTHROMB 13691 [facility] IN TIME 8 O MEDICAL O 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 SCREENING 24323 [place] [facility], 8 IMAGING & MARYAM L MAMMOGRAP HY INTERVENT BILATERAL ION PLLC US PELVIC 01455 [facility], 8 IMAGING & MARYAM L NONOBSTET LUIS INTERVENT REAL-TIME ION PLLC IMAGE COMPLETE PROTHROMB 29264 [facility] IN TIME 8 O MEDICAL O 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 COLLECTIO 45845 [facility] N VENOUS 8 O MEDICAL O MEDICAL BLOOD ASSOC ASSOC 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 URE Y Y BLOOD 33670 [facility] COUNT 8 O MEDICAL O MEDICAL COMPLETE ASSOC 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 DIFRNTL Y Y WBC BASIC 73620 [facility] METABOLIC 8 O MEDICAL O MEDICAL PANEL ASSOC ASSOC CALCIUM 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 TOTAL Y Y STRAPPING 82348 AIDEN WOLFE UNNA 8 [place] [address] [facility], HEAD/BRAI 8 IMAGING & MARYAM L N W/O CONTRAST INTERVENT MATERIAL ION PLLC RADIOLOGI 34356 [facility] C 8 HOSP INC HOSP INC EXAMINATI [place] [address] [facility] TROPONIN 8 HOSP INC HOSP INC QUANTITAT TIKA CREATINE 58654 [facility] KINASE MB 8 HOSP INC HOSP INC FRACTION ONLY CREATINE 58875 [facility] KINASE 8 HOSP INC HOSP INC TOTAL BLOOD 92152 [facility] COUNT 8 HOSP INC HOSP INC COMPLETE AUTO&AUTO DIFRNTL WBC COLLECTIO 42772 [facility] N VENOUS 8 HOSP INC HOSP INC BLOOD VENIPUNCT URE COMPREHEN 04206 [facility] SIVE 8 HOSP INC HOSP INC METABOLIC PANEL ECG 92163 [facility] ROUTINE 8 HOSP INC HOSP INC ECG W/LEAST 12 LDS TRCG ONLY W/O I&R GROUND A0425 [facility] MILEAGE 8 EMS EMS PER STATUTE MILE AMB A0427 [facility] SERVICE 8 EMS EMS ALS EMERGENCY TRANSPORT LEVEL 1 GROUND A0425 [facility] MILEAGE 8 EMS EMS PER STATUTE MILE AMBULANCE A0429 [facility] SERVICE 8 EMS [place] [address] [facility], HEAD/BRAI 8 IMAGING & MARYAM L N W/O CONTRAST INTERVENT MATERIAL ION PLLC RADIOLOGI 57794 [facility], C EXAM 8 IMAGING & MARYAM L CHEST 2 VIEWS INTERVENT FRONTAL&L ION PLLC ATERAL CREATINE 50721 [facility] KINASE MB 8 HOSP [place] [address] [facility] TROPONIN 8 HOSP INC HOSP INC QUANTITAT TIKA BLOOD 20751 [facility] COUNT 8 HOSP INC HOSP INC COMPLETE AUTO&AUTO DIFRNTL WBC BASIC 73876 [facility] METABOLIC 8 HOSP INC HOSP INC PANEL CALCIUM TOTAL CREATINE 200 50129 [facility] KINASE 8 HOSP INC HOSP INC TOTAL NONINVASI 10-200 31252 [facility] VE 8 HOSP INC HOSP INC EAR/PULSE OXIMETRY SINGLE DETER COMPREHEN 10-200 04500 [facility] SIVE 8 HOSP INC HOSP INC METABOLIC PANEL NONINVASI 10--200 22933 [facility] VE 8 HOSP INC HOSP INC EAR/PULSE OXIMETRY SINGLE DETER PROTHROMB 12-28-200 90785 [facility] IN TIME 8 HOSP INC HOSP INC ECG 200 26012 [facility] ROUTINE 8 HOSP INC HOSP INC ECG W/LEAST 12 LDS TRCG ONLY W/O I&R GROUND A0425 [facility] MILEAGE 8 EMS EMS PER STATUTE MILE CREATINE 200 52432 [facility] KINASE 8 HOSP INC HOSP INC TOTAL BLOOD 200 24400 [facility] COUNT 8 HOSP INC HOSP INC COMPLETE AUTO&[place] [address] [facility] TROPONIN 8 HOSP INC HOSP INC QUANTITAT TIKA CREATINE 200 33854 [facility] KINASE MB 8 HOSP INC HOSP INC FRACTION ONLY RADIOLOGI 10-27-200 55887 Jayson NEWMAN 8 IMAGING & MARYAM Boyd EXAMINATI ON CHEST INTERVENT SINGLE ION PLLC VIEW FRONTAL AMB A0427 [facility] SERVICE 8 EMS EMS ALS EMERGENCY TRANSPORT LEVEL 1 COLLECTIO 42098 [facility] N VENOUS 8 O MEDICAL O MEDICAL BLOOD ASSOC ASSOC 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 URE Y Y IIV3 12165 [facility], VACCINE 8 O MEDICAL YANIRE SPLIT VIRUS 0.5 ASSOCIATE ML S DOSAGE IM USE ADMINISTR G0008 [facility], ATION OF 8 O MEDICAL YANIRE INFLUENZA VIRUS ASSOCIATE VACCINE S PROTHROMB 85507 [facility] IN TIME 8 O MEDICAL O 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 DEBRIDEME 21527 AIDEN WOLFE, NT NAIL 8 ESA ESA ANY ER J ER J METHOD 6/> ECG 37327 CH[facility]I FERNANDEZ, ROUTINE 8 CARDIOLOG KHALED ECG Y W/LEAST 12 LDS W/I&R CTA ABDL 69494 IZABELA BAKER, AORTA&BI 8 CARLITOS Cage ILIOFEM RADIOLOGY W/CONTRAS ASSOC T&[place] [address] [facility] ANGIOGRAP 8 [facility] JUSTINE HY LOWER D D [facility] DUPLEX 13956 IZABELA SHABBIR, SCAN 8 ULI Cage EXTRACRAN RADIOLOGY IAL ART ASSOC COMPL BI STUDY PROGRAMME 65960 Robert TURPIN STIMJ & 8 D CLINIC V[facility] Cage PACG PLLC AFTER IV DRUG NFS COMPRE 49469 VALENTINE TURPIN 8 D [facility] Cage YSIOLOGIC PLLC ARRHYTHMI A INDUCTION GROUND A0425 [facility] MILEAGE 8 EMS EMS PER STATUTE MILE LEFT 3722 [facility] HEART 8 JUSTINE FLETCHER CARDIAC D D CATHETERI [facility] CORONARY 8856 [facility] ARTERIOGR 8 [facility] APHY D D [facility] [place] 3726 [facility] STIMULATI 8 JUSTINE FLETCHER ON&RECORD D D ING [facility] ANGIOCARD 8853 [facility] IOGRAPHY 8 JUSTINE FLETCHER OF LEFT D D HEART [facility] H[facility]PITAL S AMB A0427 [facility] SERVICE 8 EMS EMS ALS EMERGENCY TRANSPORT LEVEL 1 SBSQ 35011 [facility] 8 D [facility] J 15 PHYSICIAN MINUTES S SBSQ 17367 [facility] 8 D [facility] J 15 PHYSICIAN MINUTES S L HRT 40173 JOELNO GARCIA CATHETERI 8 D [facility]INIC [facility] Cage ZATION PLL[place] [address] JUSTINE GARCIA C-CATHJ 8 D [facility]IC [facility] Cage F/SLCTV C PLLC ANGRPH I SI&R 14286 JOELNO GARCIA, F/NJX PX 8 D [facility]IC [facility] M DURING PLLC C-CATHJ VENTR&/AT R ANGRPH I SI&R 68905 JUSTINE GARCIA, F/NJX PX 8 D [facility] Cage DURING PLLC C-CATHJ PULM&/OR SELECT INJECTION 53996 JUSTINE GARCIA CARDIAC 8 D [facility]INIC V[facility] Cage CATHJ L PLLC VENTR/L ATR ANGIOGRAP H SBSQ 12505 [facility] D [facility] Cage CARE/DAY PLLC 25 MINUTES CREATINE 29124 [facility] KINASE 8 HOSP INC HOSP INC TOTAL BLOOD 10502 [facility] COUNT 8 HOSP INC HOSP INC COMPLETE AUTO&AUTO DIFRNTL WBC COLLECTIO 24789 [facility] N VENOUS 8 HOSP INC HOSP INC BLOOD VENIPUNCT URE RADIOLOGI 61847 [facility] C 8 HOSP INC HOSP INC EXAMINATI [place] [address] IZABELA ROCHA HEAD/BRAI 8 CASTRO N W/O RADIOLOGY CONTRAST ASSOC MATERIAL CREATINE 49495 [facility] KINASE MB 8 HOSP [place] [address] [facility] TROPONIN [address] [facility] HOSP INC QUANTITAT TIKA GROUND A0425 [facility] MILEAGE 8 EMS EMS PER STATUTE MILE INITIAL 41824 [facility] 8 D [facility] J 50 PHYSICIAN MINUTES S ECG 09971 [facility] ROUTINE 8 HOSP INC HOSP INC ECG W/LEAST 12 LDS TRCG ONLY W/O I&R INITIAL 42595 JUSTINE GARCIA, INPATIENT 8 D [facility]INIC V[facility]E Cage CONSULT PLLC NEW/ESTAB PT 80 MIN NONINVASI 25584 [facility] VE 8 HOSP INC HOSP INC EAR/PULSE OXIMETRY SINGLE DETER COMPREHEN 95195 [facility] SIVE [address] [facility] HOSP INC METABOLIC PANEL AMB A0427 [facility] SERVICE 8 EMS EMS ALS EMERGENCY TRANSPORT LEVEL 1 N-INVAS 16240 [facility]I FERNANDEZ PHYSIOLOG 8 CARDIOLOG KHALED IC STD Y LXTR ART COMPL BI DUP-SCAN 35860 [facility] XTR VEINS 8 HOSP INC HOSP INC UNILATERA L/LIMITED STUDY RADEX 20610 [facility] SUBRAMANIAN, ELBOW 2 8 [facility] RADEX 83486 [facility]AR[facility], HAND 8 O MEDICAL YANIRE MINIMUM 3 VIEWS ASSOCIATE S ECG 85309 CH[facility]I FERNANDEZ, ROUTINE 8 CARDIOLOG KHALED ECG Y W/LEAST 12 LDS W/I&R PROTHROMB 73087 [facility] ALVES IN TIME 8 O MEDICAL O 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 ECG 55901 BEMENTSHERIDAN FERNANDEZ, ROUTINE 8 CARDIOLOG KHALED ECG Y W/LEAST 12 LDS W/I&R BASIC 63893 [facility] METABOLIC 8 HOSP INC HOSP INC PANEL CALCIUM TOTAL COLLECTIO 44728 [facility] N VENOUS 8 HOSP INC HOSP INC BLOOD VENIPUNCT URE BLOOD 78692 [facility] COUNT 8 HOSP INC HOSP INC COMPLETE AUTO&[place] [address] [facility] TROPONIN 8 HOSP INC HOSP INC QUANTITAT TIKA CREATINE 24614 [facility] KINASE MB 8 HOSP INC HOSP INC FRACTION ONLY CREATINE 03694 [facility] KINASE 8 HOSP INC HOSP INC TOTAL CREATINE 96981 [facility] KINASE 8 HOSP INC HOSP INC TOTAL CREATINE 03658 [facility] KINASE MB 8 HOSP [place] [address] [facility] TROPONIN 8 HOSP INC HOSP INC QUANTITAT TIKA BLOOD 57889 [facility] COUNT 8 HOSP INC HOSP INC COMPLETE AUTO&AUTO DIFRNTL WBC RADIOLOGI 29307 [facility] C 8 HOSPITAL- HOSPITAL- EXAMINATI HOSPITALI HOSPITALI ON CHEST [facility] [place] COLLECTIO 86840 [facility] N VENOUS 8 HOSP INC HOSP INC BLOOD VENIPUNCT URE PROTHROMB 54367 [facility] IN TIME 8 HOSP INC HOSP INC COMPREHEN 82794 [facility] SIVE 8 HOSP INC HOSP INC METABOLIC PANEL ECG 36409 [facility] ROUTINE 8 HOSP INC HOSP INC ECG W/LEAST 12 LDS TRCG ONLY W/O I&R GROUND A0425 [facility] MILEAGE 8 EMS EMS PER STATUTE MILE AMB A0427 [facility] SERVICE 8 EMS EMS ALS EMERGENCY TRANSPORT LEVEL 1 ECG 00691 MORTE[facility] PRO, ROUTINE 8 ECG BECCA BECCA W/LEAST 12 LDS TRCG ONLY W/O I&R SKIN TEST 09827 [facility] [address] [facility] SIS BANK ACCT DEPARTMEN INTRADERM T AL ECG 79511 [facility] ROUTINE 8 CARDIOLOG CARDIOLOG ECG Y Y W/LEAST 12 LDS W/I&R ECG 69641 [facility], ROUTINE 8 CARDIOLOG KHALED ECG Y W/LEAST 12 LDS W/I&R HOSPITAL 96991 RAJ ANTHONY, DISCHARGE 8 SADAF SADAF DAY MANAGEMEN T 30 MIN/< COMPRE 28990 [facility] [place] [address] MEDICAL MEDICAL YSIOLOGIC SPEC [place]C [place] ARRHYTHMI A INDUCTION INITIAL 27895 THE [facility] [place] [address] MEDICAL MEDICAL CARE/DAY SPEC OF SPEC OF 50 [place] MINUTES INTRA-TATIANNA 99563 THE THE TRIC&/ATR MEDICAL MEDICAL IAL MAPG SPEC OF SPEC OF [place] W/CATH MA COMPRE 41205 THE THE ELECTROPH MEDICAL MEDICAL YSIOL XM SPEC OF SPEC OF W/LEFT [place] ATRIAL PACNG/REC ICAR CATH 11130 THE [address] MEDICAL ARRHYTGNI SPEC OF SPEC OF C FOC [place] SUPVENTR TCHYCAR SBSQ 08779 [facility] 8 CARDIOLOG KHALED CARE/DAY Y 25 MINUTES GROUND A0425 [facility] MILEAGE 8 FIRE/EMS FIRE/EMS PER STATUTE MILE AMB A0427 [facility] SERVICE 8 FIRE/EMS FIRE/EMS ALS EMERGENCY TRANSPORT LEVEL 1 SBSQ 28051 [facility] 8 CARDIOLOG CARDIOLOG CARE/DAY Y Y 25 MINUTES SBSQ 18464 [facility] 8 CARDIOLOG CARDIOLOG CARE/DAY Y Y 25 MINUTES SBSQ 44375 [facility] 8 CARDIOLOG CARDIOLOG CARE/DAY Y Y 25 MINUTES ANES 12819 [facility] 8 D D ELEC ANESTHESI ANESTHESI CONVERSIO A ASSOC A ASSOC N ARRHYTHMI CARDIOVER 83876 [facility] TIERRA 8 CARDIOLOG CARDIOLOG ELECTIVE Y Y ARRHYTHMI A EXTERNAL INITIAL 19338 [facility] INPATIENT 8 FAMILY FAMILY CONSULT CARE CARE NEW/ESTAB PT 55 MIN SBSQ 89432 [facility] 8 CARDIOLOG CARDIOLOG CARE/DAY Y Y 25 MINUTES SBSQ 01520 [facility] 8 CARDIOLOG CARDIOLOG CARE/DAY Y Y 25 MINUTES ANES 56213 [facility] 8 D D ELEC ANESTHESI ANESTHESI CONVERSIO A ASSOC A ASSOC N ARRHYTHMI INITIAL 80113 [facility] INPATIENT 8 CARDIOLOG CARDIOLOG CONSULT Y Y NEW/ESTAB PT 80 MIN CARDIOVER 70937 [facility] TIERRA 8 CARDIOLOG CARDIOLOG ELECTIVE Y Y ARRHYTHMI A EXTERNAL ECG 74677 [facility] ROUTINE 8 CARDIOLOG CARDIOLOG ECG Y Y W/LEAST 12 LDS W/I&R Encounters Encounter Start End Date Code Location Performer Type Date DOMICIL/R 70180 [facility] EST HOME 7 7 NEW PT VISIT MOD SEVER 30 MIN EMERGENCY 96570 [facility] DEPT 7 7 PHYSICIAN VISIT S, PLLC HIGH SEVERITY& THREAT FUN [facility]OSP[facility] MAY - 6 6 [facility] - 6 6 [facility] MAY - 6 6 [facility] DOM/R-MERON 51525 PAUL ELDER E E/M EST 5 5 [facility] SIGNIF NEW PROB 60 MINUTES EMERGENCY 23400 EMERGENCY [facility] JENNIFER DEPT 5 5 [facility] VISIT HIGH CORPORATI SEVERITY& THREAT FUN DOM/R-MERON 10603 PAUL ELDER E E/M EST 5 5 [facility] SIGNIF NEW PROB 60 MINUTES [facility] - 5 5 [facility] INPATIENT D [facility] OFFICE 50042 CH[facility]I GOYAL OUTPATIEN 5 5 CARDIOLOG T VISIT Y 25 MINUTES OFFICE 97243 [facility] OUTPATIEN 5 5 AND SLEEP Z BONNER T NEW 30 DISORDER MINUTES OFFICE 82808 [facility]PATIEN 5 5 O MEDICAL T VISIT 15 ASSOCIATE MINUTES CLINIC, [facility] 5 5 O MEDICAL HEALTH ASSOCIATE CLINIC, [facility] 5 5 O MEDICAL HEALTH ASSOCIATE OFFICE 30098 [facility]PATI[facility] 5 5 O MEDICAL T VISIT 15 ASSOCIATE MINUTES OFFICE 27536 [facility] KIMBALLA OUTPATIEN 5 5 CARDIOLOG T VISIT Y 25 MINUTES OFFICE 99330 [facility] GOYAL OUTPATIEN 5 5 CARDIOLOG T VISIT Y 25 MINUTES EMERGENCY 22652 [facility] MEDROSO DEPT 5 5 JACQUIE FLORIN VISIT EMERGENCY HIGH PHYS SEVERITY& THREAT FUNCJ EMERGENCY 99335 EMERGENCY EARL 5 [address] [facility] DEPARTMEN T VISIT CORPORATI HIGH/URGE NT SEVERITY CRITICAL [facility] ACCESS [address] [facility]PITAL EMERGENCY 25446 EMERGENCY [place] II 5 5 [facility] JAM DEPARTMEN T VISIT CORPORATI HIGH/URGE NT SEVERITY OFFICE 24971 [facility] 5 5 O MEDICAL T VISIT 15 ASSOCIATE MINUTES EMERGENCY 57376 [facility] [address] [facility] DEPARTMEN T VISIT MODERATE SEVERITY HOME PERSONAL HEALTH, 4 4 [facility] OUTPATIEN HOME CARE T OF OFFICE 12490 [facility] 4 4 O MEDICAL T VISIT 15 ASSOCIATE MINUTES CLINIC, [facility] 4 4 O MEDICAL HEALTH ASSOCIATE OFFICE 74814 [facility] OUTPATI[facility] 4 4 O MEDICAL T VISIT 15 ASSOCIATE MINUTES CLINIC, [facility] 4 4 O MEDICAL HEALTH ASSOCIATE OFFICE 65464 EAR NOSE SEBASTIÁN OUTPATIEN 4 4 AND RAN T VISIT THROAT 15 SPECIALI MINUTES OFFICE 57240 LONG BRIONESPATIEN 4 4 O MEDICAL T VISIT 15 ASSOCIATE MINUTES CLINIC, [facility] 4 4 O MEDICAL HEALTH ASSOCIATE EMERGENCY 37031 EMERGENCY [place] II 4 4 [facility] V[facility] COR[facility]ATI HIGH/URGE NT SEVERITY HOME PERSONAL HEALTH, 4 4 TOUCH OUTPATIEN HOME CARE T OF OFFICE 18099 [facility] HARRIS OUTPATIEN 4 4 D FOOT & DEN T VISIT ANKLE 15 CENT MINUTES OFFICE 89724 EAR NOSE SEBASTIÁN OUTPATIEN 4 4 AND RAN T NEW 30 THROAT MINUTES SPECIALI CLINIC, [facility] 4 4 O MEDICAL HEALTH ASSOCIATE OFFICE 12458 [facility] BRIONESPATIEN 4 4 O MEDICAL T VISIT 15 ASSOCIATE MINUTES HOME PERSONAL HEALTH, 4 4 TOUCH OUTPATIEN HOME CARE T OF OFFICE 75427 BALJIT SMILEY OUTPATIEN 4 4 CONUNTY CONUNTY T VISIT 5 HEALTH HEALTH MINUTES DEPARTM DEPARTM OFFICE 46632 [facility] 4 4 CONUNTY CONUNTY T VISIT HEALTH HEALTH 10 DEPARTM DEPARTM MINUTES OFFICE 69793 [facility] GOYAL OUTPATIEN 4 4 CARDIOLOG T VISIT Y 25 MINUTES OFFICE 56636 [facility] BRIONESPATIEN 4 4 O MEDICAL T VISIT 15 ASSOCIATE MINUTES CLINIC, [facility] 4 4 O MEDICAL HEALTH ASSOCIATE OFFICE 87990 [facility]PAT[facility] 4 4 O MEDICAL T VISIT 15 ASSOCIATE MINUTES CLINIC, [facility] 4 4 O MEDICAL HEALTH ASSOCIATE OFFICE 14986 [facility] GOYAL OUTPATIEN 4 4 CARDIOLOG T VISIT Y 15 MINUTES OFFICE 92432 [facility] 4 4 O MEDICAL T VISIT 15 ASSOCIATE MINUTES [facility] 4 O MEDICAL HEALTH ASSOCIATE EMERGENCY 80287 [facility] [address] [facility] DEPARTMEN T VISIT HIGH/URGE NT SEVERITY CRITICAL [facility] ACCESS [address] [facility] OFFICE 30449 [facility] OUTPATIEN 4 4 O MEDICAL T VISIT 15 ASSOCIATE MINUTES CLINIC, [facility] 4 4 O MEDICAL HEALTH ASSOCIATE CLINIC, [facility] 4 4 O MEDICAL HEALTH ASSOCIATE OFFICE 95945 [facility]PATI[facility] 4 4 O MEDICAL T VISIT 15 ASSOCIATE MINUTES OFFICE 90423 [facility] OUTPATIEN 4 4 O MEDICAL T VISIT 15 ASSOCIATE MINUTES CLINIC, [facility] 4 4 O MEDICAL HEALTH ASSOCIATE CLINIC, [facility] 4 4 O MEDICAL HEALTH ASSOCIATE OFFICE 85113 [facility] OUTPATIEN 4 4 O MEDICAL T VISIT 15 ASSOCIATE MINUTES HOME PERSONAL HEALTH, 4 4 TOUCH OUTPATIEN HOME CARE T OF CLINIC, [facility] 3 3 O MEDICAL HEALTH ASSOCIATE OFFICE 56283 [facility] OUTPATIEN 3 3 O MEDICAL T VISIT 15 ASSOCIATE MINUTES CLINIC, [facility] RURAL 3 3 O MEDICAL HEALTH ASSOCIATE OFFICE 85209 [facility] OUTPATIEN 3 3 O MEDICAL T VISIT 15 ASSOCIATE MINUTES OFFICE 48608 RONALDPROSPERET JIM GOYAL OUTPATIEN 3 3 CARDIOLOG T VISIT Y 15 MINUTES OFFICE 42770 [facility] OUTPATIEN 3 3 O MEDICAL T VISIT 15 ASSOCIATE MINUTES CLINIC, [facility] 3 3 O MEDICAL HEALTH ASSOCIATE HOME PERSONAL HEALTH, 3 3 TOUCH OUTPATIEN HOME CARE T OF OFFICE 51864 SPORTS SUPINSKI OUTPATIEN 3 3 MEDICINE JENNIFER T VISIT & 10 ORTHOPAED MINUTES I CLINIC, [facility] 3 3 O MEDICAL HEALTH ASSOCIATE OFFICE 85656 JARRODLL OUTPATIEN 3 3 O MEDICAL T VISIT 15 ASSOCIATE MINUTES OFFICE 85050 RONALDRSET OUTPATIEN 3 3 CARDIOLOG T VISIT Y 15 MINUTES CRITICAL [facility] ACCESS 3 3 [facility] EMERGENCY 46448 PRIETO ALBERT DEPT 3 3 EMERGENCY I RENEE VISIT SERVICES HIGH SEVERITY& THREAT FUN CLINIC, [facility] 2 2 O MEDICAL HEALTH ASSOCIATE OFFICE 83633 WOOCHEIKHLL OUTPATIEN 2 2 O MEDICAL T VISIT 15 ASSOCIATE MINUTES OFFICE 38908 AYANNA GRAVES OUTPATIEN 2 2 T NEW 45 MINUTES CRITICAL [facility] ACCESS 2 2 [facility] CL[facility], [facility] 2 2 O MEDICAL HEALTH ASSOCIATE OFFICE 86731 MONTICELL OUTPATIEN 2 2 O MEDICAL T VISIT 15 ASSOCIATE MINUTES OFFICE 84746 RONALDRSET OUTPATIEN 2 2 CARDIOLOG T VISIT Y 15 MINUTES CLINIC, [facility] 2 2 O MEDICAL HEALTH ASSOCIATE OFFICE 19774 WOOCHEIKHLL OUTPATIEN 2 2 O MEDICAL T VISIT 15 ASSOCIATE MINUTES CLINIC, [facility] 2 2 O MEDICAL HEALTH ASSOCIATE OFFICE 51787 [facility] 2 2 O MEDICAL T VISIT 15 ASSOCIATE MINUTES OFFICE 14374 [facility] O MEDICAL T VISIT 15 ASSOCIATE MINUTES CLINIC, [facility] 2 2 O MEDICAL HEALTH ASSOCIATE OFFICE 99956 CHIDI GOYAL OUTPATIEN 2 2 CARDIOLOG T VISIT Y 15 MINUTES OFFICE 33228 ARGENISET OUTPATIEN 2 2 CARDIOLOG T VISIT Y 15 MINUTES OFFICE 86121 ESSIE CALL OUTPATIEN 2 2 T VISIT 15 MINUTES [facility] - 2 2 [facility] OFFICE 35359 [facility] OUTPATIEN 2 2 O MEDICAL T VISIT 15 ASSOCIATE MINUTES CLINIC, [facility] 2 2 O MEDICAL HEALTH ASSOCIATE OFFICE 02286 ESSIE CALL OUTPATIEN 2 2 T NEW 30 MINUTES CLINIC, [facility] 2 2 O MEDICAL HEALTH ASSOCIATE [facility] O MEDICAL T VISIT 15 ASSOCIATE MINUTES HOME PERSONAL HEALTH, 2 2 TOUCH OUTPATIEN HOME CARE T OF EMERGENCY 31230 PRIETO KELLEY DEPT 2 2 EMERGENCY KOL VISIT SERVICES HIGH SEVERITY& THREAT [facility] - 2 2 [place] OUTPATIEN D T REGIONAL HOS EMERGENCY 36325 [facility] 2 2 [place] DEPARTMEN D T VISIT REGIONAL HIGH/URGE HOS NT SEVERITY CLINIC, [facility] 2 2 O MEDICAL HEALTH ASSOCIATE OFFICE 13502 [facility] OUTPATIEN 2 2 O MEDICAL T VISIT 15 ASSOCIATE MINUTES [facility] - 2 2 [place] OUTPATIEN D T REGIONAL HOS EMERGENCY 52418 [facility] 2 2 [place] DEPARTMEN D T VISIT REGIONAL HIGH/URGE HOS NT SEVERITY EMERGENCY 68318 PRIETO KIMBLE 2 2 EMERGENCY GRE DEPARTMEN SERVICES T VISIT MODERATE SEVERITY EMERGENCY 03339 EMERGENCY SHANKS DEPT 2 2 COVERAGE LYN VISIT HIGH CORPORATI SEVERITY& THREAT FUNCJ CRITICAL [place] ACCESS [address] [facility] EMERGENCY 34737 [place] [facility] 2 2 HOSP INC DEPARTMEN T VISIT HIGH/URGE NT SEVERITY CLINIC, [facility] 2 2 O MEDICAL HEALTH ASSOCIATE OFFICE 24659 [facility] BRIONESPATIEN 2 2 O MEDICAL T VISIT 15 ASSOCIATE MINUTES OFFICE 70993 BALJIT SMILEY OUTPATIEN 2 2 CONUNTY CONUNTY T VISIT 5 HEALTH HEALTH MINUTES DEPARTM DEPARTM OFFICE 74406 BALJIT BALJIT OUTPATIEN 2 2 CONUNTY CONUNTY T VISIT HEALTH HEALTH 10 DEPARTM DEPART MINUTES [facility]IC, [facility] 2 2 O MED[facility]OCIATE [facility] 2 O MEDICAL T VISIT 10 ASSOCIATE MINUTES OFFICE 19343 [facility] 2 O MEDICAL T VISIT 25 ASSOCIATE MINUTES CLINIC, [facility] 2 2 O MEDICAL HEALTH ASSOCIATE CLINIC, [facility] 2 2 O MEDICAL HEALTH ASSOCIATE OFFICE 95252 [facility] OUTPATIEN 2 2 O MEDICAL T VISIT 15 ASSOCIATE MINUTES OFFICE 84054 SHARAN TSANG OUTPATIEN 2 2 JAM JAM T VISIT 15 MINUTES EMERGENCY 37019 EMERGENCY SHANKS DEPT 2 2 COVERAGE LYN VISIT HIGH CORPORATI SEVERITY& THREAT FUNCJ EMERGENCY 41738 [facility] 2 2 HOSP INC DEPARTMEN T VISIT HIGH/URGE NT SEVERITY CRITICAL [facility] CO ACCESS 2 2 HOSP INC HOSPITAL OFFICE 88278 [facility] ANSELMOPATIEN 2 2 O MEDICAL T VISIT 15 ASSOCIATE MINUTES CLINIC, [facility] 2 2 O MEDICAL HEALTH ASSOCIATE CLINIC, [facility] 2 2 O MEDICAL HEALTH ASSOCIATE OFFICE 97692 [facility] OUTPATIEN 2 2 O MEDICAL T VISIT 15 ASSOCIATE MINUTES OFFICE 71658 [facility] OUTPATIEN 2 2 O MEDICAL T VISIT 15 ASSOCIATE MINUTES CLINIC, [facility] 2 2 O MEDICAL HEALTH ASSOCIATE HOME PERSONAL HEALTH, 2 2 TOUCH OUTPATIEN HOME CARE T OF OFFICE 41390 [facility] ANSELMOPATIEN 2 2 O MEDICAL T VISIT 15 ASSOCIATE MINUTES CLINIC, [facility] 2 2 O MEDICAL HEALTH ASSOCIATE OFFICE 87092 [facility] OUTPATIEN 2 2 O MEDICAL T VISIT 10 ASSOCIATE MINUTES CLINIC, [facility] 2 2 O MEDICAL HEALTH ASSOCIATE CLINIC, [facility] 1 1 O MEDICAL HEALTH ASSOCIATE OFFICE 42633 [facility] OUTPATIEN 1 1 O MEDICAL T VISIT 15 ASSOCIATE MINUTES OFFICE 76742 MALLY HYLTON OUTPATIEN 1 1 MEDICAL FISTER T VISIT SERV CHRIS 40 FOUNDATIO MINUTES OFFICE 75130 [facility] ALFARO OUTPATIEN 1 1 O MEDICAL JUAN T VISIT 15 ASSOCIATE MINUTES OFFICE 98650 [facility] BRIONSEPATIEN 1 1 O MEDICAL T VISIT 15 ASSOCIATE MINUTES CLINIC, [facility] 1 1 O MEDICAL HEALTH ASSOCIATE OFFICE 53446 [facility] 1 O MEDICAL T VISIT 15 ASSOCIATE MINUTES CLINIC, [facility] 1 1 O MEDICAL HEALTH ASSOCIATE OFFICE 60530 [facility] [facility] OUTPATIEN 1 1 O MEDICAL T VISIT 15 ASSOCIATE MINUTES CLINIC, [facility] 1 1 O MEDICAL HEALTH ASSOCIATE OFFICE [id number] [facility] OUTPATIEN 1 1 O MEDICAL T VISIT 15 ASSOCIATE MINUTES CLINIC, [facility] 1 1 O MEDICAL HEALTH ASSOCIATE AMBULATOR [facility] Y SURGERY 1 1 HOSP INC CENTER EMERGENCY 11050 [facility] DEPT 1 1 HOSP INC VISIT HIGH SEVERITY& THREAT FUNCJ EMERGENCY 06248 EMERGENCY ARANA 1 1 COVERAGE SEA DEPARTMEN T VISIT CORPORATI HIGH/URGE NT SEVERITY HOSPITAL UNIVERSIT - 1 1 Y INPATIENT HOSPITAL EMERGENCY 32301 EMERGENCY [facility] DEPT 1 1 COVERAGE VISIT HIGH CORPORATI SEVERITY& THREAT FUNCJ CRITICAL [facility] ACCESS [address] [facility] EMERGENCY 85083 [facility] 1 1 HOSP INC DEPARTMEN T VISIT MODERATE SEVERITY OFFICE 94662 [facility] OUTPATIEN 1 1 O MEDICAL T VISIT 15 ASSOCIATE MINUTES CLINIC, [facility] 1 1 O MEDICAL HEALTH ASSOCIATE OFFICE 71239 [facility] O MEDICAL T VISIT 15 ASSOCIATE MINUTES CLINIC, [facility] 1 1 O MEDICAL HEALTH ASSOCIATE CLINIC, [facility] 1 1 O MEDICAL HEALTH ASSOCIATE OFFICE 50585 [facility] 1 1 O MEDICAL T VISIT 15 ASSOCIATE MINUTES OFFICE 37136 [facility] 1 1 O MEDICAL T VISIT 15 ASSOCIATE MINUTES CLINIC, [facility] RURAL 1 1 O MEDICAL HEALTH ASSOCIATE CRITICAL [place] ACCESS [address] [facility] OFFICE 55716 [facility]PATI[facility] 1 1 O MEDICAL T VISIT 15 ASSOCIATE MINUTES CLINIC, [facility] 1 1 O MEDICAL HEALTH ASSOCIATE OFFICE 10435 [facility] 1 1 O MEDICAL T VISIT 15 ASSOCIATE MINUTES CLINIC, [facility] 1 1 O MEDICAL HEALTH ASSOCIATE EMERGENCY 25495 [facility] [address] [facility] DEPARTMEN T VISIT HIGH/URGE NT SEVERITY EMERGENCY 27779 [facility] [place] DEPT 1 1 COVERAGE ELZ VISIT HIGH CORPORATI SEVERITY& THREAT FUNCJ CRITICAL [facility] ACCESS [address] [facility] HOME PERSONAL HEALTH, 1 1 [facility] OUTPATIEN HOME CARE T OF OFFICE 73601 [facility] OUTPATI[facility] 1 1 O MEDICAL T VISIT 15 ASSOCIATE MINUTES CLINIC, [facility] 1 1 O MEDICAL HEALTH ASSOCIATE EMERGENCY 69762 EMERGENCY KN[place] TAT[facility] 1 1 COVERAGE DEPARTMEN T VISIT CORPORATI MODERATE SEVERITY CRITICAL [facility] ACCESS [address] [facility] EMERGENCY 38708 [facility] 1 1 HOSP INC DEPARTMEN T VISIT MODERATE SEVERITY EMERGENCY 50886 EMERGENCY [place] JAM 1 1 COVERAGE DEPARTMEN T VISIT CORPORATI HIGH/URGE NT SEVERITY CRITICAL [facility] ACCESS [address] [facility] CRITICAL [facility] ACCESS [address] [facility] EMERGENCY 45130 [facility] 1 1 HOSP INC DEPARTMEN T VISIT MODERATE SEVERITY EMERGENCY 56370 EMERGENCY KNIGHT TATUM 1 1 COVERAGE DEPARTMEN T VISIT CORPORATI HIGH/URGE NT SEVERITY CLINIC, [facility] 1 1 O MEDICAL HEALTH ASSOCIATE OFFICE 31700 [facility] OUTPATIEN 1 1 O MEDICAL T VISIT 15 ASSOCIATE MINUTES EMERGENCY 34825 EMERGENCY [facility] DEPT 1 1 COVERAGE VISIT HIGH CORPORATI SEVERITY& THREAT FUNCJ CRITICAL [facility] ACCESS [address] [facility] EMERGENCY 41467 [facility] [address] [facility] DEPARTMEN T VISIT MODERATE SEVERITY CLINIC, [facility] 1 1 O MEDICAL HEALTH ASSOCIATE OFFICE 16849 [facility] OUTPATIEN 1 1 O MEDICAL T VISIT 15 ASSOCIATE MINUTES CLINIC, [facility] 1 1 O MEDICAL HEALTH ASSOCIATE OFFICE 64121 [facility] 1 O MEDICAL T VISIT 15 ASSOCIATE MINUTES HOME PERSONAL HEALTH, 1 1 TOUCH OUTPATIEN HOME CARE T OF OFFICE 09270 [facility] 1 CONUNTY CONUNTY T VISIT 5 HEALTH HEALTH MINUTES DEPARTM DEPARTM OFFICE 36197 [facility] CONUNTY CONUNTY T VISIT HEALTH HEALTH 10 DEPARTM DEPARTM MINUTES CLINIC, [facility] 1 1 O MEDICAL HEALTH ASSOCIATE OFFICE 94335 [facility] 1 1 O MEDICAL T VISIT 15 ASSOCIATE MINUTES CRITICAL [facility] ACCESS [address] [facility] EMERGENCY 08614 EMERGENCY [place] 1 1 COVERAGE GLE DEPARTMEN T VISIT CORPORATI HIGH/URGE NT SEVERITY CLINIC, [facility] 0 0 O MEDICAL HEALTH ASSOCIATE OFFICE 17774 [facility] OUTPATIEN 0 0 O MEDICAL T VISIT 15 ASSOCIATE MINUTES OFFICE 83110 [facility] 0 0 O MEDICAL T VISIT 15 ASSOCIATE MINUTES CLINIC, [facility] RURAL 0 0 O MEDICAL HEALTH ASSOCIATE OFFICE 77438 [facility] OUTPATIEN 0 0 O MEDICAL T VISIT 15 ASSOCIATE MINUTES CLINIC, [facility] RURAL 0 0 O MEDICAL HEALTH ASSOCIATE HOME PERSONAL HEALTH, 0 0 TOUCH OUTPATIEN HOME CARE T [facility] WARD - 0 0 [facility] D REGIONAL HOS CRITICAL [facility] ACCESS [address] [facility] EMERGENCY 13507 [facility] 0 0 HOSP INC DEPARTMEN T VISIT HIGH/URGE NT SEVERITY OFFICE 09404 [facility] 0 0 O MEDICAL T VISIT 15 ASSOCIATE MINUTES CLINIC, [facility] RURAL 0 0 O MEDICAL HEALTH ASSOCIATE OFFICE 21365 [facility] OUTPATIEN 0 0 O MEDICAL T VISIT 15 ASSOCIATE MINUTES CLINIC, [facility] RURAL 0 0 O MEDICAL HEALTH ASSOCIATE EMERGENCY 30698 [facility] 0 0 HOSP INC DEPARTMEN T VISIT HIGH/URGE NT SEVERITY EMERGENCY 66388 EMERGENCY [facility] JENNIFER DEPT 0 0 COVERAGE VISIT HIGH CORPORATI SEVERITY& THREAT FUNCJ CRITICAL [facility] ACCESS [address] [facility] CLINIC, [facility] RURAL 0 0 O MEDICAL HEALTH ASSOCIATE OFFICE 77190 [facility] 0 0 O MEDICAL T VISIT 15 ASSOCIATE MINUTES CRITICAL [facility] ACCESS [address] [facility] EMERGENCY 50767 [facility] 0 0 HOSP INC DEPARTMEN T VISIT MODERATE SEVERITY EMERGENCY 42938 [facility] 0 0 HOSP INC DEPARTMEN T VISIT LIMITED/M INOR PROB CRITICAL [place] ACCESS [address] [facility] OFFICE 80027 [facility] OUTPATIEN 0 0 O MEDICAL T VISIT 15 ASSOCIATE MINUTES S CLINIC, [facility] RURAL 0 0 O MEDICAL HEALTH ASSOCIATE S OFFICE 98737 [facility] OUTPATIEN 0 0 O MEDICAL T VISIT 15 ASSOCIATE MINUTES S CLINIC, [facility] RURAL 0 0 O MEDICAL HEALTH ASSOCIATE S CLINIC, [facility] RURAL 0 0 O MEDICAL HEALTH ASSOCIATE S OFFICE 94719 [facility] T VISIT 15 ASSOCIATE MINUTES S CLINIC, [facility] 0 0 O MEDICAL HEALTH ASSOCIATE S EMERGENCY 99142 EMERGENCY [facility] 0 0 COVERAGE DEPARTMEN T VISIT CORPORATI HIGH/URGE NT SEVERITY CRITICAL [facility] ACCESS [address] [facility] EMERGENCY 32611 [place] [address] [facility] DEPARTMEN T VISIT MODERATE SEVERITY OFFICE 92863 SH[facility] TSANG OUTPATIEN 0 0 CASTRO Ibrahim T VISIT 15 MINUTES OFFICE 28157 [facility] TS[facility] OUTPATIEN 9 9 CASTRO Ibrahim T VISIT 25 MINUTES OFFICE 48444 DAVEY HANNA 9 9 CARDIOLOG WOOD Jones T VISIT Y PSC 15 MINUTES CLINIC, [facility] 9 9 O MEDICAL HEALTH ASSOCIATE S OFFICE 17482 [facility] 9 9 O MEDICAL T VISIT 15 ASSOCIATE MINUTES HOSPITAL [facility] - OTHER 9 9 HOSP INC OFFICE 02048 DAVEY WANG 9 9 O MEDICAL YANIRE T VISIT 15 ASSOCIATE MINUTES S EMERGENCY 83287 [facility] [place] 9 9 HOSP INC DEPARTMEN T VISIT HIGH/URGE NT SEVERITY EMERGENCY 24692 [facility] [place], DEPT 9 9 COVERAGE ELZER T VISIT HIGH CORPORATI SEVERITY& ON INC THREAT FUNCJ CRITICAL [facility] [place] ACCESS [address] [facility] CRITICAL [place] ACCESS [address] [facility] OFFICE 15820 DAVEY WANG 9 9 O MEDICAL YANIRE T VISIT 15 ASSOCIATE MINUTES S [facility] 9 9 O MEDICAL HEALTH ASSOCIATE S HOSPITAL [facility] - 9 9 JUSTINE BRIONESPATILAURA D T LONG [facility] CRITICAL [facility] ACCESS [address] [facility] EMERGENCY 40403 EMERGENCY [place], DEPT 9 9 COVERAGE CASTRO R VISIT HIGH CORPORATI SEVERITY& ON INC THREAT FUNJ EMERGENCY 07881 [facility] 9 9 HOSP INC DEPARTMEN T VISIT LOW/MODER SEVERITY CLINIC, [facility] 9 9 O MEDICAL HEALTH ASSOCIATE S OFFICE 03707 DAVEY WANG 9 9 O MEDICAL YANIRE T VISIT 15 ASSOCIATE MINUTES S OFFICE 79413 [facility] 9 9 NATHALIE NATHALIE T VISIT 10 MINUTES OFFICE 78215 [facility] 9 9 HEALTH CONUNTY T VISIT 5 [facility] MINUTES BANK ACCT DEPARTMEN T OFFICE 45313 [facility] 9 9 HEALTH CONUNTY T VISIT [facility] 10 BANK ACCT DEPARTMEN MINUTES T OFFICE 20939 DAVEY WANG 9 9 O MEDICAL YANIRE T VISIT 15 ASSOCIATE MINUTES S OFFICE 93349 DAVEY WANG 9 9 O MEDICAL YANIRE T VISIT 15 ASSOCIATE MINUTES S OFFICE 15143 CHIDI FERNANDEZDAVEY 9 9 CARDIOLOG THEO T VISIT Y 15 MINUTES OFFICE 87063 AIDEN WOLFE OUTPATIEN 9 9 ESAESTELA SEE T VISIT ER J ER J 10 MINUTES HOSPITAL ENRIQUE - 9 9 CO OUTPATIEN HOSPITAL T INC OFFICE 03639 LUPILLO [facility]SE[facility] OUTPATIEN 9 9 RUSTY OJEDA L T VISIT 15 MINUTES OFFICE 64835 DAVEY WANG 8 8 O MEDICAL YANIRE T VISIT 15 ASSOCIATE MINUTES HOSPITAL [facility] - OTHER [address] [facility] CRITICAL [facility] ACCESS [address] [facility] OFFICE 86258 LUPILLO WESLEY OUTPATIEN 8 8 RUSTY L RUSTY L T NEW 45 MINUTES CRITICAL [facility] ACCESS [address] [facility] OFFICE 21223 SHARAN TSANG OUTPATIEN 8 8 CASTRO Ibrahim T VISIT 25 MINUTES CRITICAL [facility] ACCESS [address] [facility] EMERGENCY 67974 [facility] [address] [facility] DEPARTMEN T VISIT MODERATE SEVERITY OFFICE 11300 DAVEY WANG 8 8 O MEDICAL YANIRE T VISIT 15 ASSOCIATE MINUTES S EMERGENCY 27231 [facility] [address] [facility] DEPARTMEN T VISIT HIGH/URGE NT SEVERITY EMERGENCY 95607 EMERGENCY [place], DEPT 8 8 MATIAS Pruitt VISIT HIGH CORPORATI SEVERITY& ON INC THREAT FUNCJ CRITICAL [facility] ACCESS [address] [facility] OFFICE 11790 DAVEY WANG 8 8 O MEDICAL YANIRE T VISIT 15 ASSOCIATE MINUTES [facility]OSPITAL [facility] - 8 8 [facility] EM[facility] 61175 [facility] DEPT 8 8 HOSP INC VISIT [facility]IGH SEVERITY& [facility] CRITICAL [facility] ACCESS [address] [facility] OFFICE 87667 [facility] 8 8 O MEDICAL T VISIT 15 ASSOCIATE MINUTES S [facility] 8 8 O MEDICAL HEALTH ASSOCIATE S [facility] 8 8 O MEDICAL HEALTH ASSOCIATE S OFFICE 67536 [facility] 8 8 O MEDICAL T VISIT 15 ASSOCIATE MINUTES S OFFICE 31894 SHARAN TSANG OUTPATIEN 8 8 CASTRO H CASTRO H T VISIT 15 MINUTES OFFICE 74163 D[facility] WANG 8 8 O MEDICAL YANIRE T VISIT 15 ASSOCIATE MINUTES S OFFICE 02724 DAVEY PERDUE 8 8 CARDIOLOG KHALED T VISIT Y 15 MINUTES OFFICE 91000 [facility] 8 8 NATHALIE ZELAYA T VISIT 10 MINUTES OFFICE 78154 DAVEY PERDUE 8 8 CARDIOLOG KHALED T VISIT Y 15 MINUTES EMERGENCY 82574 [facility] 8 8 HOSP INC DEPARTMEN T VISIT HIGH/URGE NT SEVERITY CRITICAL [facility] ACCESS [address] [facility] OFFICE 50817 DAVEY WANG 8 8 O MEDICAL YANIRE T VISIT 15 ASSOCIATE MINUTES S OFFICE 74051 [facility] OUTPATIEN 8 8 HEALTH CONUNTY T VISIT 5 [facility] MINUTES BANK ACCT DEPARTMEN T OFFICE 57820 [facility] OUTPATIEN 8 8 HEALTH CONUNTY T VISIT [facility] 10 BANK ACCT DEPARTMEN MINUTES T OFFICE 20336 DAVEY PERDUE 8 8 CARDIOLOG KHALED T VISIT Y 15 MINUTES OFFICE 04696 [facility] 8 8 NATHALIE ZELAYA T VISIT 10 MINUTES OFFICE 58365 [facility] 8 8 CARDIOLOG CARDIOLOG T VISIT Y Y 15 MINUTES
--- OUTSIDE RECORDS SUMMARY | 2016-12-14 01:29 | External Medical Summary Rpt | CCD ---
Author Author , DONNIE Organization DONNIE Address Unknown Phone [email or web address] Care Team Providers Care Dredging Inspector Name Role Phone ABOChaitanya PENALOZA TAR, Unavailable Unavailable ABOU TREMAINE TAR SUSIE MAR, SUSIE MAR Unavailable Unavailable [facility] Unavailable Unavailable MANAGEMENT, [facility] Unavailable Unavailable MANAGEMENT,, [facility], DAVID RUTH, DAVID RUTH Unavailable [facility]available [facility] Unavailable Unavailable [facility], [facility], Unavailable Unavailable [facility] RESENDIZ Unavailable Unavailable YUNIOR NICHOLSON, OLIVIA NICHOLSON Unavailable Unavailable CARLITOS BAKER, Unavailable Unavailable CARLITOS BAKER [facility] Unavailable Unavailable MED[facility] GROUP, [facility] JOSE DE JESUS ROGER Unavailable Unavailable CESIA THOMASKE BEINEKE Unavailable Unavailable BESSON, BESSON Unavailable Unavailable BHUTTA, DUKE J, Unavailable Unavailable BHUTTA, DUKE J [facility] Unavailable Unavailable [facility]OC, [facility] JONES ALL, JONES ALL Unavailable Unavailable BROWN CARMINE, [facility] Unavailable Unavailable [facility] Unavailable Unavailable SERVICE, [facility] Unavailable Unavailable SERVICE, [facility] DELILAH, ABDIAZIZ S, Unavailable Unavailable DELILAH, ABDIAZIZ S [facility] Unavailable Unavailable SPECIALIS, [facility] Unavailable Unavailable ASSOC, [facility] CHOLERA AUSTIN, CHOLERA Unavailable Unavailable [facility] Unavailable Unavailable INC, [facility] [place] [facility], Unavailable Unavailable [...] [facility] Unavailable Unavailable LLC, [facility] Unavailable Unavailable LLC, [facility] Unavailable Unavailable CORPORATI, [facility]ER[facility]OVERAGE [...] Unavailable CARLITOS SUBRAMANIAN, Unavailable Unavailable CARLITOS SUBRAMANIAN [facility] Unavailable Unavailable INC, [facility] Unavailable Unavailable HOSPITAL P, [facility] HAY, RUSTY L, HAY, Unavailable Unavailable RUSTY L GREGORY, GREGORY Unavailable Unavailable GREGORY, GREGORY Unavailable Unavailable [facility], [facility] Unavailable Unavailable [facility], Unavailable Unavailable [facility], Unavailable Unavailable [facility] AND KORTNEY, KORTNEY Unavailable Unavailable KORTNEY ELISA, KORTNEY ELISA Unavailable Unavailable [facility] Unavailable Unavailable [facility]ARE [facility], [facility] LOO IBR, LOO IBR Unavailable Unavailable [facility] Unavailable Unavailable EQUIPMEN, [facility] Unavailable Unavailable EQUIPMENT, [facility] Unavailable Unavailable EQUIPMENT, [facility] PADILLA MACARIO, PADILLA Unavailable Unavailable MACARIO JICHA GRE, JICHA GRE Unavailable Unavailable [facility] ONE[facility]DA, FOUNATIN ONEYDA Unavailable Unavailable [facility] ONE[facility], [facility] Unavailable Unavailable JOYO NOS, JOYO NOS Unavailable Unavailable JOSE, VICENTE M, Unavailable Unavailable VICENTE GARCIA M KARSNER CAR, KARSNER Unavailable Unavailable CAR CONCETTA FISTER CHRIS, Unavailable Unavailable CONCETTA FISTER CHRIS [facility], Unavailable Unavailable [facility] Unavailable Unavailable IMAGING [facility], [facility] CHIN TRENT, CHIN TRENT [...] Unavailable Unavailable HOLDINGS, [facility] Unavailable Unavailable AGENCY, [facility] Unavailable Unavailable AGENCY, [facility] Unavailable Unavailable AGENCY ON AGING, [facility] Unavailable Unavailable [facility] Unavailable Unavailable [facility], [facility] Unavailable Unavailable [facility], [facility] LANGFELS SON, Unavailable Unavailable [facility] DAMON JR DWI, DAMON Unavailable Unavailable JR DWI [facility] Unavailable Unavailable SUPPLY, [facility] Unavailable Unavailable [facility] WOOD MCDONALD, Unavailable Unavailable WOOD MCDONALD LUKAT HENRY, LUKAT HENRY Unavailable Unavailable LUKAT HENRY, LUKAT HENRY Unavailable Unavailable [facility] Unavailable Unavailable INC, [facility] Unavailable Unavailable SERVICES, [facility] CASTRO ROCHA, Unavailable Unavailable CASTRO ROCHA, Unavailable Unavailable RALPH JENKINS, Unavailable Unavailable RALPH ALFARO [facility], Unavailable Unavailable RAMEY JR CLI RAMEY JR [facility], Unavailable Unavailable [facility]AMEY [facility] CLI URENA STAR, URENA STAR Unavailable Unavailable URENA STAR, URENA STAR Unavailable Unavailable HARRIS DEN, Unavailable Unavailable STEVEN DEN REBEL AUSTIN, Unavailable Unavailable REBEL AVILA [address] [place] [address], Unavailable Unavailable [facility]U [facility] MEDROSO FLORIN, MEDROSO Unavailable Unavailable FLORIN [facility] Unavailable Unavailable SERV H[facility]PITAL RECEPTIONIST R, [facility] Unavailable Unavailable [facility] RECEPTIONIST [facility], [facility]CEPTION[facility] Unavailable Unavailable INC, [facility] RONALD WOLFE Unavailable Unavailable AIDEN Manuel CHRISTOPHER J [facility] Unavailable Unavailable [facility]OC LA, [facility] Unavailable Unavailable [facility], [facility] Unavailable Unavailable ASSOC LABORATORY, [facility] Unavailable Unavailable ASSOCIATE[facility] ROAST[facility] Unavailable Unavailable ASSOCIATES, [facility], Unavailable Unavailable [facility] NATHALIE HOOK, Unavailable Unavailable NATHALIE [...] Unavailable [facility] Unavailable Unavailable [facility], [facility] RASLAU FLA, RASLAU Unavailable Unavailable FLA TAVARES MAY, TAVARES MAY Unavailable Unavailable REKHRAJ, SADAF, Unavailable Unavailable REKHRAJ, SADAF KIMBLE GRE, KIMBLE Unavailable Unavailable GRE ARANA SEA, ARANA Unavailable Unavailable SEA [facility], [facility] Unavailable Unavailable LICO JENIFFER, LICO JENIFFER Unavailable Unavailable [facility] Unavailable Unavailable ENTERPRISES, [facility], [facility] Unavailable Unavailable [facility] Unavailable Unavailable PHYSICIA, [facility] FERNANDEZ JAY JAY, FERNANDEZ JAY JAY Unavailable Unavailable FERNANDEZ, KHALED, FERNANDEZ, Unavailable Unavailable KHALED SHARAN WHITING, SHARAN Unavailable Unavailable JOHANNE WHITING, SHARAN Unavailable Unavailable CASTRO MENDEZ, Unavailable Unavailable CASTRO TSANG SCHUDHEISDov BONNER, Unavailable Unavailable SCHUDHEISZ BONNER SCIFRES ANG, SCIFRES Unavailable Unavailable ANG SCIFRES [...] Unavailable Unavailable EQUIPME, [facility] Unavailable Unavailable EMERGENCY PHYS, [facility] EMERGENCY PHYS [facility] Unavailable Unavailable PHYSICIAN SERVI, [facility] PHYSICIAN SERVI [facility] & Unavailable Unavailable [...] [place] MEI RENATO, MEI RENATO Unavailable Unavailable [facility], Unavailable Unavailable [facility] [place] [facility] [place] Unavailable Unavailable [facility] H[facility]P [facility], Unavailable Unavailable [facility] H[facility]P [facility] Unavailable Unavailable HOSPITAL-HOSPITALIS, [facility] HOSPITAL-HOSPITALIS [facility] Unavailable Unavailable HOSPITAL-HOSPITALIST, [facility] HOSPITAL-HOSPITALIST [facility] Unavailable Unavailable DEPARTM, [facility] Unavailable Unavailable DEPART, [facility] Unavailable Unavailable DEPARTMENT, [facility] DEPARTMENT [facility], Unavailable Unavailable [facility]; Unavailable Unavailable MONTICEL, [facility]; [facility]; Unavailable Unavailable [facility]ONT[facility]EL, [facility]; [facility] Unavailable Unavailable [facility], [facility] [address] Unavailable Unavailable BREE IV ALL, [...] Provider Status B351 TINEA 08-02-2016 GREGORY UNGUIUM [id number] PAIN IN 08-02-2016 GREGORY RIGHT TOES [id number] PAIN IN 08-02-2016 GREGORY LEFT TOES E119 TYPE 2 06-03-2016 [facility]ETES MEDICAL MELLITUS SUPPLY [facility] WITHOUT COMPLICATIO NS I4891 UNSPECIFIED 04-19-2016 [facility] ATRIAL SERV FIBRILLATIO FOUNDATION N R9431 ABNORMAL 04-19-2016 [facility] MEDICAL ELECTROCARD SERV IOGRAM [facility] M1711 UNILATERAL 04-16-2016 [facility] OSTEOARTHRI [facility] TIS RIGHT KNEE M1712 UNILATERAL 04-16-2016 [facility] OSTEOARTHRI [facility] TIS LEFT KNEE [id number] EFFUSION 04-16-2016 RADI[facility] LEFT KNEE [facility] I482 CHRONIC 03-25-2016 [facility] ATRIAL PHYSICIANS, FIBRILLATIO [facility] N R55 SYNCOPE AND 03-25-2016 [facility] COLLAPSE PHYSICIANS, [facility] Z0389 ENCOUNTER 03-25-2016 [facility] MEDICAL SUSPCT DZ & IMAGING ASS COND RULED OUT I959 HYPOTENSION 02-24-2016 [facility] UNSPEC[facility] IM[facility] ASS R51 HEADACHE 02-24-2016 [facility] R079 CHEST PAIN 12-06-2015 [facility] P [id number] CONTUSION 12-06-2015 [facility] P ENCOUNTER I746MGB FALL SAME 12-06-2015 [facility] ALFONSOL SLIP [facility] TRIP W[facility]O HOSPITAL P SUB STRIK OBJ INIT H18609 UNS PLACE 12-06-2015 [facility] P PLACE OF OCCUR EXT I10 ESSENTIAL 09-19-2015 [facility] PRIMARY [facility] HYPERTENSIO INC N K319 DISEASE OF 09-19-2015 [facility] STOMACH AND [facility] DUODENUM INC UNSPECIFIED K5900 CONSTIPATIO 09-19-2015 [facility] N MEM HOS[facility] UNSPECIFIED INC N390 URINARY 09-19-2015 [facility] TRACT [facility]OS[facility] INFECTION INC SITE NOT SPECIFIED R630 ANOREXIA 09-19-2015 [facility] R634 ABNORMAL 09-19-2015 [facility] WEIGHT LOSS MEM HOS[facility] INC E79547 PERSONAL 09-19-2015 [facility] HISTORY OF MEM HOSP NICOTINE INC DEPENDENCE R69 ILLNESS 07-06-2015 [facility] UNSPECIFIED TRANSPORTAT ION SER [id number] DSPL OBL FX 07-06-2015 [place] SHAFT LT MEDICAL FIBULA IMAGING ASS SUBSQT CLOS FX RTN [id number] OT FX 07-06-2015 [facility] UPPER & MEM HOSP LOWER UNS INC FIBULA INIT ENC CLOS FX [id number] OT FX 06-02-2015 [facility] UPPER & HOME LOWER LT MEDICAL FIBULA INIT EQUIPME ENC CLOS FX [id number] DISPL 05-31-2015 [place] SPIRAL FX MEDICAL SHAFT LT IMAGING ASS FIB SUBS CLOS FX RTN [id number] OT FX 05-31-2015 [facility] LOWER LT GROUP FIB SUBSQT CLOS RTN HEAL [id number] UNSPECIFIED 05-17-2015 [facility] FALL PHYSICIANS INITIAL GROUP ENCOUNTER O92864 PAIN IN 05-14-2015 [place] LEFT ANKLE MEDICAL IMAGING ASS H74004 PAIN IN 05-14-2015 [place] LEFT LOWER MEDICAL LEG IMAGING ASS U90184 PAIN IN 05-14-2015 [place] LEFT FOOT MEDICAL IMAGING ASS M7989 OTHER 05-14-2015 [place] SPECIFIED MEDICAL SOFT TISSUE IMAGING ASS DISORDERS R600 LOCALIZED 05-14-2015 [facility] EDEMA AMB[facility]ANCE SERVICE E039 HYPOTHYROID 05-08-2015 WO[facility] ISM CHOLERA DO UNSPECIFIED INC I639 CEREBRAL 05-05-2015 [place] INFARCTION MEDICAL UNSPECIFIED IMAGING ASS R4182 ALTERED 05-05-2015 [place] MENTAL MEDICAL STATUS IMAGING ASS UNSPECIFIED G9340 ENCEPHALOPA 04-27-2015 [facility]IENTAL ORTHODOX [facility] UNSPECIFIED MEDICAL GROUP M179 OSTEOARTHRI 04-25-2015 [facility] TIS OF KNEE RADIOLOGY ASSOC UNSPECIFIED P07862 PAIN IN 04-25-2015 [facility] LEFT HIP RADIOLOGY ASSOC U43156 SPONDYLOSIS 04-25-2015 [facility] W/O RADIOLOGY MYELOPATH/R ASSOC ADICULOPATH Y LUMB RGN M545 LOW BACK 04-25-2015 [facility] PAIN RADIOLOGY ASSOC J93354 PAIN IN 04-25-2015 [facility] ORTHODOX LEFT LEG HEALTH MEDICAL GROUP G9341 METABOLIC 04-23-2015 [facility]IENT[facility] ORTHODOX ENCEPHALOPA HEALTH THY MEDICAL GROUP I313 PERICARDIAL 04-22-2015 [facility] OR[facility]ODOX EFFUSION HEALTH NONINFLAMMA MEDICAL TORY GROUP I340 NONRHEUMATI 04-22-2015 [facility]IENTAL ORTHODOX C MITRAL HEALTH VALVE MEDICAL INSUFFICIEN GROUP CY I361 NONRHEUMATI 04-22-2015 [facility]IENT[facility] ORTHODOX C TRICUSPID HEALTH VALVE MEDICAL INSUFFICIEN GROUP CY I371 NONRHEUMATI 04-22-2015 [facility] ORTHODOX C PULMONARY HEALTH VALVE MEDICAL INSUFFICIEN GROUP CY I6523 OCCLUSION & 04-22-2015 ORIENTAL ORTHODOX [facility] BILATERAL MEDICAL CAROTID GROUP ARTERIES R479 UNSPECIFIED 04-21-2015 [facility] SPEECH RADIOLOGY DISTURBANCE ASSOC S R531 WEAKNESS 04-21-2015 [facility] [id number] UNS FB 04-21-2015 [facility] LARYNX RADIOLOGY CAUSING ASSOC ASPHYXIATIO N INITIAL ENC C27972 CORTICAL 03-18-2015 SCIFRES ANG AGE-RELATED CATARACT BILATERAL H5202 HYPERMETROP 03-18-2015 SCIFRES ANG IA LEFT EYE H5203 HYPERMETROP 03-18-2015 SCIFRES ANG IA BILATERAL O06406 REGULAR 03-18-2015 SCIFRES ANG ASTIGMATISM BILATERAL E559 VITAMIN D 03-17-2015 COMBINED DEFICIENCY PHYSICIANS UNSPECIFIED [place] E785 HYPERLIPIDE 03-17-2015 COMBINED NAYANA PHYSICIANS UNSPECIFIED [place] 4359 UNSPECIFIED 11-02-2014 [facility]ICAL TRANSIENT SERV CEREBRAL FOUNDATION ISCHEMIA 13370 OTHER 11-02-2014 [facility] ALTERATION AMBULANCE OF [place] [address] ATRIAL 10-19-2014 [facility] MEDICAL FIBRILLATIO SERV N FOUNDATION 67669 NONSPECIFIC 10-19-2014 [facility] MEDICAL ABNORMAL SERV ELECTROCARD FOUNDATION IOGRAM 75462 DIAB W/O 10-12-2014 [facility] COMP TYPE [place] II/UNS NOT LLC STATED UNCNTRL 4019 UNSPECIFIED 10-12-2014 [facility] ESSENTIAL [facility] HYPERTENSIO LLC N 78370 HYPERTONICI 10-12-2014 [facility] TY OF [place] BLADDER [facility] 1101 DERMATOPHYT 09-29-2014 [facility] OSIS OF FOOT & NAIL ANKLE CENT 11963 DIAB 09-29-2014 [facility] W/PERIPH FOOT & CIRC D/O ANKLE CENT TYPE II/UNS NOT UNCNTRL 7295 PAIN IN 09-29-2014 [facility] SOFT FOOT & TISSUES OF ANKLE CENT LIMB 99426 09-24-2014 [facility] ENTERPRISES 7840 HEADACHE 08-29-2014 EMERGENCY COVERAGE CORPORATI 07982 CHEST PAIN 08-29-2014 [facility] UNSPECIFIED HOSPITAL-HO SPITALIS 2724 OTHER AND 08-17-2014 MD2U UNSPECIFIED [place] LLC HYPERLIPIDE NAYANA 55527 ALTERED 07-17-2014 [facility] MENTAL EMS STATUS 50432 ICI OTH&UNS 07-17-2014 [facility] NATR W/O EMS OPEN ICW UNS STATE CONSC 63291 ACUTE 06-26-2014 [facility] RESPIRATORY [facility] PHYSICIA 9721 POISN 06-26-2014 [facility] GLYCOSIDES& PHYSICIA RX SIMILAR ACTION 496 CHRONIC 06-23-2014 [facility] [place] [facility] RADIOLOGY OBSTRUCTION NEC 31914 OTHER 06-22-2014 [facility] SPECIFIED RADIOLOGY CARDIAC ASSOC DYSRHYTHMIA S 4279 UNSPECIFIED 06-22-2014 [facility] CARDIAC FIRE/EMS DYSRHYTHMIA 5180 PULMONARY 06-20-2014 [facility] COLLAPSE RADIOLOGY ASSOC 586 UNSPECIFIED 06-19-2014 CARDIO AND RENAL ELECTRO FAILURE SPECIALIS 5119 UNSPECIFIED 06-18-2014 [facility] PLEURAL [facility] EFFUSION ASSOC 09990 DIAB W/O 06-14-2014 KAROLINE KING MENTION CLI COMP TYPE II/UNS TYPE UNCNTRL 4011 ESSENTIAL 06-14-2014 KAROLINE KING HYPERTENSIO CLI N, BENIGN 65188 SINOATRIAL 06-14-2014 [facility] DYSFUNCTION 5849 ACUTE 06-14-2014 KAROLINE KING KIDNEY CLI FAILURE UNSPECIFIED E9421 CARDIOTONIC 06-14-2014 [facility] [place] [address] OTHER 06-12-2014 [facility] NONSPECIFIC RADIOLOGY ABNORMAL ASSOC FINDING OF LUNG FIELD 17087 OTHER 06-10-2014 [facility] DISEASES OF RADIOLOGY LUNG NOT ASSOC ELSEWHERE CLASSIFIED V5882 ENCOUNTER 06-10-2014 [facility] FITTING&ADJ RADIOLOGY ASSOC NON-VASCULA R CATHETER NEC 28926 METABOLIC 06-09-2014 [facility] ENCEPHALOPA [facility] THY [facility]IONAL HOS 4240 MITRAL 06-09-2014 [facility] DISORDERS 4241 AORTIC 06-09-2014 [facility] DISORDERS 4242 TRICUSPID 06-09-2014 [facility] DISORDERS SPEC NONRHEUMATI C 35160 ATRIAL 06-09-2014 [facility] HOS 4299 UNSPECIFIED 06-09-2014 [facility] DISEASE 24378 METHICILLIN 06-09-2014 [facility] RESISTANT [facility] PNEUMONIA REGIONAL D/T STAPH HOS AUREUS 49770 OTHER SHOCK 06-09-2014 [facility] MENTION OF REGIONAL TRAUMA HOS 31016 OTHER 06-09-2014 [facility] DYSPNEA AND RADIOLOGY ASSOC RESPIRATORY ABNORMALITI ES 7907 BACTEREMIA 06-09-2014 [facility] REGIONAL HOS 9778 POISONING 06-09-2014 [facility] OTHER SPEC MEDICAL DRUGS&MEDIC INAL SUBSTANCES 9779 POISONING 06-09-2014 [facility] UNSPECIFIED EMS DRUG/MEDICI NAL SUBSTANCE 9899 TOX EFF UNS 06-09-2014 [facility] NONMEDICINA L SRC E9505 LUCERO&SLF-INF 06-09-2014 [facility] LICT POISN MEDICAL UNS RX/MEDICINA L [facility] V5881 FITTING AND 06-09-2014 [facility] ADJUSTMENT RADIOLOGY OF ASSOC VASCULAR CATHETER 250 DIABETES 05-24-2014 [facility] MELLITUS [facility] AREA AGENCY 97625 ATHEROSLERO 05-14-2014 [facility] NATV ART FOOT & EXTREM ANKLE CENT W/INTERMIT CLAUDICAT 97651 MORBID 05-13-2014 [facility] OBESITY CARDIOLOGY 76606 UNSPECIFIED 05-13-2014 [facility] SLEEP CARDIOLOGY APNEA 96922 PRECORDIAL 05-13-2014 [facility] PAIN CARDIOLOGY 53667 HYPERSOMNIA 05-10-2014 THE LUNG AND SLEEP UNSPECIFIED DISORDER 19092 OTHER SLEEP 05-10-2014 THE LUNG AND SLEEP DISTURBANCE DISORDER S 4589 UNSPECIFIED 04-08-2014 [facility] HYPOTENSION REG HOSPITAL V5869 LONG-TERM 04-08-2014 [facility] (CURRENT) [facility] USE OF REG OTHER HOSPITAL MEDICATIONS E9504 LUCERO&SLF-INF 04-07-2014 [facility] LICT POISN N EMERGENCY OTH PHYS RX&MEDICINA L [facility] 84373 SPASM OF 03-15-2014 EMERGENCY MUSCLE COVERAGE CORPORATI 7802 SYNCOPE AND 03-15-2014 [facility] COLLAPSE EMS 8242 CLOSED 03-15-2014 [facility] FRACTURE OF IMAGING & LATERAL INTERVENTI MALLEOLUS 89819 UNSPECIFIED 03-15-2014 [facility] SITE OF MEDICAL ANKLE LLC; SPRAIN AND MONTICEL STRAIN 920 CONTUSION 03-15-2014 EMERGENCY OF FACE COVERAGE SCALP AND CORPORATI NECK EXCEPT EYE 11900 HEAD 03-15-2014 EMERGENCY INJURY, COVERAGE UNSPECIFIED CORPORATI V714 OBSERVATION 03-15-2014 [facility] FOLLOWING IMAGING & OTHER INTERVENTI ACCIDENT 21693 UNSPECIFIED 03-11-2014 [facility] MENDOZA VIRAL HOSP INC INFECTION IN CCE & UNS SITE 89821 NAUSEA WITH 03-11-2014 [place] VOMITING ROASTERMAN 75443 VOMITING 03-11-2014 EMERGENCY ALONE COVERAGE CORPORATI 38189 CORONARY 03-02-2014 [facility] ATHEROSCLER CARDIOLOGY [place] CORONARY ARTERY 76306 SHORTNESS 03-02-2014 [facility] OF BREATH CARDIOLOGY 7140 RHEUMATOID 02-16-2014 [place] [address] MIXED 02-16-2014 PERSONAL INCONTINENC TOUCH HOME E URGE AND CARE OF STRESS 79130 UNSPECIFIED 01-12-2014 [place] MEDICAL CONSTIPATIO ASSOCIATE N 7881 DYSURIA 01-12-2014 [place] ROASTERMAN 57717 OBSTRUCTIVE 01-10-2014 [facility] SLEEP MEDICAL [facility] LLC; [facility] 69334 HYPOXEMIA 01-10-2014 [facility]; [facility] 96683 UNSPECIFIED 12-10-2013 [facility] HENRY TINNITUS 74027 SENSORINEUR 12-10-2013 LUKAT HENRY AL HEARING LOSS BILATERAL 3899 UNSPECIFIED 12-10-2013 EAR NOSE HEARING AND THROAT LOSS SPECIALI 2449 UNSPECIFIED 11-21-2013 [place] [facility] HYPOTHYROID FOUNDATION ISM 4139 OTHER AND 11-20-2013 [facility] MEDICAL UNSPECIFIED SERV ANGINA FOUNDATION [place] 4293 CARDIOMEGAL 11-20-2013 [place] [facility] Y SERV [facility] 4471 STRICTURE 11-20-2013 [place] [facility] OF ARTERY SERV FOUNDATION 47835 OTHER 11-20-2013 [facility] MALAISE AND N PHYSICIAN FATIGUE SERVI 7869 OTH 11-20-2013 [place] [facility] SYMPTOMS SERV INVOLVING FOUNDATION RESPIRATORY SYSTEM&CHES T 87892 OTHER 11-19-2013 [facility] MENDOZA CONVULSIONS EMS 7011 ACQUIRED 11-10-2013 [facility] KERATODERMA FOOT & ANKLE CENT 55771 UNSPECIFIED 11-09-2013 EAR NOSE OTALGIA AND THROAT SPECIALI 88045 UNSPECIFIED 11-09-2013 EAR NOSE AND THROAT TEMPOROMAND SPECIALI IBULAR JOINT DISORDERS 35704 DIAB 10-27-2013 [facility] W/NEURO FOOT & MANIFESTS ANKLE CENT TYPE II/UNS NOT UNCNTRL V741 SCREENING 08-19-2013 [place] EXAMINATION CONUNTY FOR HEALTH PULMONARY DEPARTM TUBERCULOSI S 7850 UNSPECIFIED 05-17-2013 [facility] RADIOLOGY TACHYCARDIA ASSOC 4254 OTHER 05-13-2013 [facility] PRIMARY CARDIOLOGY CARDIOMYOPA HILDA 4619 ACUTE 05-01-2013 KATHERYN SINUSITIS, MEDICAL UNSPECIFIED ASSOCIATE 0088 INTESTINAL 04-24-2013 [facility] INFECTION HOSP INC DUE TO OTHER ORGANISM NEC 91363 UNS 04-24-2013 [facility] GASTRITIS&G EMS ASTRODUODIT IS W/O MENTION HEMORR V5867 LONG-TERM 04-24-2013 [facility] USE OF HOSP INC INSULIN 4658 ACUTE URIS 04-03-2013 KATHERYN OF OTHER MEDICAL MULTIPLE ASSOCIATE SITES 22753 FEVER 04-03-2013 KATHERYN UNSPECIFIED RO[place] 3804 IMPACTED 04-01-2013 KATHERYN CERUMEN [facility] 4660 ACUTE 01-01-2013 KATHERYN BRONCHITIS RO[facility]ERMAN 2720 PURE 11-05-2012 KATHERY[place] [address] UNSPECIFIED 06-24-2012 [facility] MEDICINE & ARTHROPATHY ORTHOPAEDI , LOWER LEG 27693 OSTEOARTHRO 06-13-2012 KATHERYN Kamara UNSPEC MEDICAL WHETHER ASSOCIATE GEN/LOC UNSPEC SITE 4550 INTERNAL 03-12-2012 [facility] HEMORRHOIDS HOSP INC WITHOUT MENTION COMP 80881 DIVERTICULO 03-12-2012 [facility] SIS OF HOSP INC COLON 93518 ABDOMINAL 03-12-2012 [facility] STAR PAIN RIGHT LOWER QUADRANT 24759 ABDOMINAL 03-12-2012 [facility] STAR PAIN, LEFT LOWER QUADRANT V7651 SPECIAL 03-12-2012 [facility] SCREENING HOSP INC FOR MALIGNANT NEOPLASMS COLON 00324 PAIN IN 02-18-2012 KATHERYN JOINT, SITE ROASTERMAN UNSPECIFIED 7810 ABNORMAL 01-30-2012 [facility] INVOLUNTARY HOSP INC MOVEMENTS V5861 LONG-TERM 12-25-2011 [facility] (CURRENT) MEDICAL USE OF ASSOC [place] ANTICOAGULA NTS 7804 DIZZINESS 10-31-2011 K[facility]N AND MEDICAL GIDDINESS ASSOCIATE 2722 MIXED 08-30-2011 [facility]PERL[facility]IOLOG[facility] NAYANA 97952 OSTEOARTHRO 08-29-2011 [facility] CALL SIS UNSPEC WHETHER GEN/LOC LOWER LEG 97510 PAIN IN 08-27-2011 [facility], [facility] 4919 UNSPECIFIED 07-29-2011 [facility] CHRONIC MEDICAL BRONCHITIS EQUIPMENT 412 OLD 07-23-2011 [facility] MYOCARDIAL [facility] 45907 EFFUSION OF 07-23-2011 [facility] JOINT [facility]OC 9130 ELB 07-23-2011 [facility] FORARM&WRST [facility] ABRASION/FR HOS ICION BURN W/O INF 9160 HIP THI 07-23-2011 [facility] LEG&ANK [facility] ABRASION/FR REGIONAL ICION BURN HOS W/O INF 9190 ABRASION/FR 07-23-2011 [facility] ICION BURN EMERGENCY OTH MX&UNS SERVICES SITE W/O INF 79814 CONTUSION 07-23-2011 [facility] OF FOREARM [facility] 72477 CONTUSION 07-23-2011 [facility] OF KNEE EMERGENCY SERVICES E8859 FALL FROM 07-23-2011 [facility] OTHER EMERGENCY SLIPPING SERVICES TRIPPING OR STUMBLING E8888 OTHER FALL 07-23-2011 [facility] EMS V1254 PERSONAL HX 07-23-2011 [facility] TIA & CI [facility] W/O REGIONAL RESIDUAL HOS DEFICITS 75343 ASTHMA, 07-21-2011 [facility] UNSPECIFIED HOSP INC , UNSPECIFIED STATUS 53077 OTHER CHEST 07-21-2011 [facility] PAIN EMS V5883 ENCOUNTER 07-21-2011 [facility] FOR HOSP INC THERAPEUTIC DRUG MONITORING 2869 OTHER AND 07-15-2011 [place] UNSPECIFIED MEDICAL GROUP COAGULATION [place] DEFECTS 45269 PRIMARY 07-12-2011 MICHELLE KING LOCALIZED [place] OSTEOARTHRO SIS LOWER LEG 4779 ALLERGIC 06-14-2011 [facility] RHINITIS MEDICAL CAUSE ASSOCIATE UNSPECIFIED 4610 ACUTE 06-07-2011 [facility] MAXILLARY MEDICAL SINUSITIS ASSOCIATE 37362 OTHER 06-04-2011 SHARAN WHITING MUCOPURULEN T CONJUNCTIVI TIS 2727 LIPIDOSES 05-28-2011 [facility] 7820 DISTURBANCE 05-28-2011 [facility] RADIOLOGY SENSATION ASSOC 1330 SCABIES 03-06-2011 KATHERYN ROASTERMAN 4378 OTHER 02-07-2011 [place] [facility] [place]-DEFINED SERV FOUNDATIO CEREBROVASC ULAR DISEASE 6829 CELLULITIS 01-30-2011 KATH[facility]N AND ABSCESS MEDICAL OF ASSOCIATE UNSPECIFIED SITE 52791 TRANSIENT 12-26-2010 [place] [facility] ALTERATION SERV OF FOUNDATIO AWARENESS 25628 OTHER 12-23-2010 [place] [facility] CONDITIONS SERV OF BRAIN FOUNDATIO 4371 OTH 12-23-2010 [place] [facility] GENERALIZED SERV ISCHEMIC FOUNDATIO CEREBROVASC ULAR DISEASE 5990 URINARY 12-23-2010 [facility] INFECTION SITE NOT SPECIFIED 436 ACUTE BUT 12-22-2010 [facility] ILL-DEFINED EMS CEREBROVASC ULAR DISEASE 45208 FACIAL 12-22-2010 [facility] WEAKNESS HOSP INC V7612 OTHER 09-26-2010 [facility] SCREENING HOSP INC MAMMOGRAM 2859 UNSPECIFIED 09-04-2010 [facility] ANEMIA HOSP INC 33479 DISPLCMT 08-23-2010 [facility] LUMBAR RADIOLOGY INTERVERT ASSOC DISC W/O MYELOPATHY 7245 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-2010 [place] BACK[facility]HE ROASTERMAN 7242 LUMBAGO 08-21-2010 [facility] HOSP INC 12767 CONTUSION 08-15-2010 [facility] OF BACK HOSP INC E8889 UNSPECIFIED 08-15-2010 [facility] FALL HOSP INC 96763 OBSTRUCTIVE 08-07-2010 [facility] CHRONIC [facility] BRONCHITIS SPITALIS WITH EXACERBATIO N 486 PNEUMONIA, 08-06-2010 EMERGENCY ORGANISM [facility] UNSPECIFIED CORPORATI 74300 WHEEZING 08-06-2010 [facility] CORPORATI 7862 COUGH 07-28-2010 [facility] & INTERVENTI 7231 CERVICALGIA 05-18-2010 [place] ROASTERMAN 5718 OTHER 03-28-2010 [facility] CHRONIC IMAGING & NONALCOHOLI INTERVENTI C LIVER DISEASE 5968 OTHER 03-28-2010 [facility] SPECIFIED IMAGING & DISORDERS INTERVENTI OF BLADDER 27315 NAUSEA 03-28-2010 [facility] ALONE EMS 58819 ABDOMINAL 03-28-2010 [facility] PAIN, HOSP INC UNSPECIFIED SITE 4111 INTERMEDIAT 12-30-2009 [facility] CORONARY [place] [facility] 44061 UNSPECIFIED 12-30-2009 [facility] CEREBRAL IMAGING & ARTERY INTERVENTI OCCLUSION W/INFARCT 05058 OTH 12-30-2009 [facility] ETAL SX SPITALIS REFERABLE LIM[place] OTH 7851 PALPITATION 12-29-2009 [facility] S HOSP INC 04190 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 [place] 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 82897 ABDOMINAL 11-06-2009 [facility] PAIN, HOSP INC GENERALIZED 490 BRONCHITIS 07-18-2009 [facility] NOT IMAGING & SPECIFIED INTERVENTIO ACUTE OR N PLLC CHRONIC 4439 UNSPECIFIED 06-02-2009 [facility] PERIPHERAL NATHALIE VASCULAR DISEASE 8449 SPRAIN&STRA 04-11-2009 [facility] IN OF HOSP INC UNSPECIFIED SITE OF KNEE&LEG 8472 LUMBAR 04-11-2009 [facility] SPRAIN AND HOSP INC STRAIN 96438 HORDEOLUM 03-08-2009 SH[facility]AN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 TAXI NONEMERGE A0100 [facility] 4 TRANS[facility] HEALTH TRANSPORT ENTERPRIS MANAGEMEN ATION; [...] 10-02-201 A4258 ARRIVA ARRIVA 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 NONEMERGE A0100 [facility] 4 TR[facility] HE[facility] TRANSPORT ENTERPRIS MANAGEMEN ATION; ES T, [facility]I HOME CARE S5108 [facility] 4 [facility] D AREA D AREA CARE AGENCY AGENCY CLIENT PER 15 MIN NONEMERGE A0100 [facility] 4 TRANS[facility] HEALTH TRANSPORT ENTERPRIS MANAGEMEN ATION; ES T, TAXI NONEMERGE A0100 [facility] 4 TRANS[facility] HEALTH TRANSPORT ENTERPRIS MANAGEMEN ATION; ES T, TAXI NONEMERGE A0100 [facility] 4 TRANS[facility] HEALTH TRANSPORT ENTERPRIS MANAGEMEN ATION; ES T, TAXI COMPREHEN 11125 [facility] SIVE 4 O MEDICAL O MEDICAL METABOLIC ASSOC LA ASSOC LA PANEL BLOOD 72054 [facility] COUNT 4 O MEDICAL O MEDICAL COMPLETE ASSOC LA ASSOC LA AUTO&AUTO DIFRNTL WBC COLLECTIO 73795 [facility] N VENOUS 4 O MEDICAL O MEDICAL BLOOD ASSOC LA ASSOC LA VENIPUNCT URE NONEMERGE A0100 [facility] 4 [facility] HE[facility] TRANSPORT ENTERPRIS MANAGEMEN ATION; ES T, TAXI NONEMERGE A0100 [facility] 4 TRANSIT HEALTH TRANSPORT ENTERPRIS MANAGEMEN ATION; ES T, TAXI NONEMERGE A0100 [facility] 4 TRANSIT HEALTH TRANSPORT ENTERPRIS MANAGEMEN ATION; ES T, TAXI NONEMERGE A0100 [facility] 4 TRANS[facility] HEALTH TRANSPORT ENTERPRIS MANAGEMEN ATION; ES T, TAXI OBSERVATI 27289 MALLY MALCOMELLEIN ON CARE 4 MEDICAL AND DISCHARGE SERV FOUNDATIO MANAGEMEN N [place] ECG [address] [place] CARLOS ENRIQUE CHI ROUTINE 4 MEDICAL ECG SERV W/LEAST FOUNDATIO 12 LDS N I&R ONLY RADIOLOGI 11811 [place] LAURA C 4 MEDICAL AYA MAR EXAMINATI SERV ON CHEST FOUNDATIO SINGLE N VIEW FRONTAL ECHO 32635 MALLY [facility] R-T 4 MEDICAL ALI 2D SERV W/WOM-MOD FOUNDATIO E COMPL N SPEC&COLR D INITIAL 78392 [facility] OBSERVATI 4 JACQUIE ON PHYSICIAN CARE/DAY SERVI 70 MINUTES NONEMERGE A0100 [facility] 4 [facility] TRANSPORT ENTERPRIS MANAGEMEN ATION; ES T, TAXI GROUND A0425 [facility] MILEAGE [address] [place] [address] PREMIER SUSIE MAR HEAD/BRAI 4 IMAGING & N W/O CONTRAST INTERVENT MATERIAL I AMB A0427 [facility] SERVICE 4 EMS EMS ALS EMERGENCY TRANSPORT LEVEL 1 DISPBL T4535 PERSONAL PERSONAL LINER/JARED 4 TOUCH TOUCH ELD/GUARD HOME SHELTER CARE /PAD/UNDG OF OF RMNT INCONT EA NONEMERGE A0100 [facility] 4 [facility] HE[facility] TRANSPORT ENTERPRIS MANAGEMEN ATION; ES T, TAXI NONEMERGE A0100 [facility] 4 TRANS[facility] HEALTH TRANSPORT ENTERPRIS MANAGEMEN ATION; ES T, T[facility]I HOME CARE S5108 [facility] 4 [facility] D AREA D AREA CARE AGENCY AGENCY CLIENT PER 15 MIN NONEMERGE A0100 [facility] 4 TRANS[facility] HEALTH TRANSPORT ENTERPRIS MANAGEMEN ATION; ES T, TAXI NONEMERGE A0100 [facility] 4 TRANSIT HEALTH TRANSPORT ENTERPRIS MANAGEMEN ATION; ES T, TAXI NONEMERGE A0100 [facility] 4 TRANSIT HEALTH TRANSPORT ENTERPRIS MANAGEMEN ATION; ES T, TAXI NONEMERGE A0100 [facility] 4 TRANSIT HEALTH TRANSPORT ENTERPRIS MANAGEMEN ATION; ES T, TAXI NONEMERGE A0100 [facility] 4 TRANSIT HEALTH TRANSPORT ENTERPRIS MANAGEMEN ATION; ES T, TAXI O2 CONC 1 E1390 [facility] 4 MEDICAL MEDICAL 85%/>02 LLC; LLC; [facility] AT [facility] FLW RATE NONEMERGE A0100 [facility] 4 TRANSIT HEALTH TRANSPORT ENTERPRIS MANAGEMEN ATION; ES T, TAXI NONEMERGE A0100 [facility] 4 TRANSIT HEALTH TRANSPORT ENTERPRIS MANAGEMEN ATION; ES T, TAXI NONEMERGE A0100 [facility] 4 TRANSIT HEALTH TRANSPORT ENTERPRIS MANAGEMEN ATION; ES T, TAXI NONEMERGE A0100 [facility] 4 TRANSIT HEALTH TRANSPORT ENTERPRIS MANAGEMEN ATION; ES T, TAXI NONEMERGE A0100 [facility] 4 TRANSIT HEALTH TRANSPORT ENTERPRIS MANAGEMEN ATION; ES T, TAXI HOME CARE S5108 [facility] 4 [facility] D AREA D AREA CARE AGENCY AGENCY CLIENT PER 15 MIN NONEMERGE A0100 [facility] 4 TRANSIT HEALTH TRANSPORT ENTERPRIS MANAGEMEN ATION; ES T, TAXI NONEMERGE A0100 [facility] 4 TRANSIT HEALTH TRANSPORT ENTERPRIS MANAGEMEN ATION; ES T, TAXI NONEMERGE A0100 [facility] 4 TRANSIT HEALTH TRANSPORT ENTERPRIS MANAGEMEN ATION; ES T, TAXI NONEMERGE A0100 [facility] 4 TRANSIT HEALTH TRANSPORT ENTERPRIS MANAGEMEN ATION; ES T, TAXI DEBRIDEME 93385 [facility] [place] NT NAIL 4 D FOOT & DEN ANY ANKLE METHOD CENT 6/> NONEMERGE A0100 [facility] 4 TRANS[facility] HEALTH TRANSPORT ENTERPRIS MANAGEMEN ATION; ES T, TAXI NONEMERGE A0100 [facility] 4 TRANSIT HEALTH TRANSPORT ENTERPRIS MANAGEMEN ATION; ES T, TAXI NONEMERGE A0100 [facility] 4 TRANSIT HEALTH TRANSPORT ENTERPRIS MANAGEMEN ATION; ES T, TAXI NONEMERGE A0100 [facility] 4 TRANSIT HEALTH TRANSPORT ENTERPRIS MANAGEMEN ATION; ES T, TAXI NONEMERGE A0100 [facility] 4 TRANSIT HEALTH TRANSPORT ENTERPRIS MANAGEMEN ATION; ES T, TAXI NONEMERGE A0100 [facility] 4 TRANSIT HEALTH TRANSPORT ENTERPRIS MANAGEMEN ATION; ES T, TAXI HOME CARE S5108 [facility] TRAINING 4 [facility]NOTE 3] HOME D AREA D AREA CARE AGENCY AGENCY CLIENT PER 15 MIN NONEMERGE A0100 [facility] 4 [facility] TRANSPORT ENTERPRIS MANAGEMEN ATION; ES T, TAXI NONEMERGE A0100 [facility] 4 TRANSIT HEALTH TRANSPORT ENTERPRIS MANAGEMEN ATION; ES T, TAXI NONEMERGE A0100 [facility] 4 TRANSIT HEALTH TRANSPORT ENTERPRIS MANAGEMEN ATION; ES T, TAXI NONEMERGE A0100 [facility] 4 TRANSIT HEALTH TRANSPORT ENTERPRIS MANAGEMEN ATION; ES T, TAXI NONEMERGE A0100 [facility] 4 TRANSIT HEALTH TRANSPORT ENTERPRIS MANAGEMEN ATION; ES T, TAXI O2 CONC 1 E1390 [facility] 4 MEDICAL MEDICAL 85%/>02 LLC; LLC; [facility] AT [facility] FLW RATE NONEMERGE A0100 [facility] 4 TRANS[facility] HEALTH TRANSPORT ENTERPRIS MANAGEMEN ATION; ES T, TAXI NONEMERGE A0100 [facility] 4 TRANSIT HEALTH TRANSPORT ENTERPRIS MANAGEMEN ATION; ES T, TAXI NONEMERGE A0100 [facility] 4 TRANSIT HEALTH TRANSPORT ENTERPRIS MANAGEMEN ATION; ES T, TAXI NONEMERGE A0100 [facility] 4 TRANSIT HEALTH TRANSPORT ENTERPRIS MANAGEMEN ATION; ES T, TAXI NONEMERGE A0100 [facility] 4 TRANSIT HEALTH TRANSPORT ENTERPRIS MANAGEMEN ATION; ES T, TAXI HOME CARE S5108 [facility] TRAINING 4 [facility]A D AREA CARE AGENCY AGENCY CLIENT PER 15 MIN NONEMERGE A0100 [facility] 4 [facility]ANS[facility] HEALTH TRANSPORT ENTERPRIS MANAGEMEN ATION; ES T, TAXI NONEMERGE A0100 [facility] 4 TRANSIT HEALTH TRANSPORT ENTERPRIS MANAGEMEN ATION; ES T, TAXI NONEMERGE A0100 [facility] 4 TRANSIT HEALTH TRANSPORT ENTERPRIS MANAGEMEN ATION; ES T, TAXI NONEMERGE A0100 [facility] 4 TRANSIT HEALTH TRANSPORT ENTERPRIS MANAGEMEN ATION; ES T, TAXI NONEMERGE A0100 [facility] 4 TRANSIT HEALTH TRANSPORT ENTERPRIS MANAGEMEN ATION; ES T, TAXI NONEMERGE A0100 [facility] 4 TRANSIT HEALTH TRANSPORT ENTERPRIS MANAGEMEN ATION; ES T, TAXI NONEMERGE A0100 [facility] 4 TRANSIT HEALTH TRANSPORT ENTERPRIS MANAGEMEN ATION; ES T, TAXI NONEMERGE A0100 [facility] 4 TRANSIT HEALTH TRANSPORT ENTERPRIS MANAGEMEN ATION; ES T, TAXI NONEMERGE A0100 [facility] 4 TRANSIT HEALTH TRANSPORT ENTERPRIS MANAGEMEN ATION; ES T, TAXI NONEMERGE A0100 [facility] 4 TRANSIT HEALTH TRANSPORT ENTERPRIS MANAGEMEN ATION; ES T, TAXI NONEMERGE A0100 [facility] 4 TRANSIT HEALTH TRANSPORT ENTERPRIS MANAGEMEN ATION; ES T, TAXI HOME CARE S5108 [facility] 4 [facility] D AREA D AREA CARE AGENCY AGENCY CLIENT PER 15 MIN NONEMERGE A0100 [facility] 4 TRANS[facility] HEALTH TRANSPORT ENTERPRIS MANAGEMEN ATION; ES T, TAXI NONEMERGE A0100 [facility] 4 TRANSIT HEALTH TRANSPORT ENTERPRIS MANAGEMEN ATION; ES T, TAXI NONEMERGE A0100 [facility] 4 TRANSIT HEALTH TRANSPORT ENTERPRIS MANAGEMEN ATION; ES T, TAXI NONEMERGE A0100 [facility] 4 TRANSIT HEALTH TRANSPORT ENTERPRIS MANAGEMEN ATION; ES T, TAXI NONEMERGE A0100 [facility] 4 TRANSIT HEALTH TRANSPORT ENTERPRIS MANAGEMEN ATION; ES T, TAXI O2 CONC 1 E1390 [facility] 4 MEDICAL MEDICAL 85%/>02 LLC; LLC; [facility] AT [facility] FLW RATE NONEMERGE A0100 [facility] 4 TRANSIT HEALTH TRANSPORT ENTERPRIS MANAGEMEN ATION; ES T, TAXI NONEMERGE A0100 [facility] 4 TRANSIT HEALTH TRANSPORT ENTERPRIS MANAGEMEN ATION; ES T, TAXI NONEMERGE A0100 [facility] 4 TRANSIT HEALTH TRANSPORT ENTERPRIS MANAGEMEN ATION; ES T, TAXI NONEMERGE A0100 [facility] 4 TRANSIT HEALTH TRANSPORT ENTERPRIS MANAGEMEN ATION; ES T, TAXI NONEMERGE A0100 [facility] 4 TRANSIT HEALTH TRANSPORT ENTERPRIS MANAGEMEN ATION; ES T, TAXI HOME CARE S5108 [facility] 4 [facility] AREA CARE AGENCY AGENCY CLIENT PER 15 MIN DISPBL T4535 PERSONAL PERSONAL LINER/JARED 4 TOUCH TOUCH ELD/GUARD HOME SHELTER CARE /PAD/UNDG OF OF RMNT INCONT EA NONEMERGE A0100 [facility] 4 [facility]ANS[facility] HE[facility] TRANSPORT ENTERPRIS MANAGEMEN ATION; ES T, TAXI NONEMERGE A0100 [facility] 4 TRANSIT HEALTH TRANSPORT ENTERPRIS MANAGEMEN ATION; ES T, TAXI NONEMERGE A0100 [facility] 4 TRANSIT HEALTH TRANSPORT ENTERPRIS MANAGEMEN ATION; ES T, TAXI NONEMERGE A0100 [facility] 4 TRANSIT HEALTH TRANSPORT ENTERPRIS MANAGEMEN ATION; ES T, TAXI NONEMERGE A0100 [facility] 4 TRANSIT HEALTH TRANSPORT ENTERPRIS MANAGEMEN ATION; ES T, TAXI NONEMERGE A0100 [facility] 4 TRANSIT HEALTH TRANSPORT ENTERPRIS MANAGEMEN ATION; ES T, TAXI NONEMERGE A0100 [facility] 4 TRANSIT HEALTH TRANSPORT ENTERPRIS MANAGEMEN ATION; ES T, TAXI NONEMERGE A0100 [facility] 4 TRANSIT HEALTH TRANSPORT ENTERPRIS MANAGEMEN ATION; ES T, TAXI NONEMERGE A0100 [facility] 4 TRANSIT HEALTH TRANSPORT ENTERPRIS MANAGEMEN ATION; ES T, TAXI NONEMERGE A0100 [facility] 4 TRANSIT HEALTH TRANSPORT ENTERPRIS MANAGEMEN ATION; ES T, TAXI HOME CARE S5108 [facility] TRAINING 4 [facility] AREA CARE AGENCY AGENCY CLIENT PER 15 MIN NONEMERGE A0100 [facility] 4 [facility] TRANSPORT ENTERPRIS MANAGEMEN ATION; ES T, TAXI SKIN TEST 15417 [facility] SIS DEPARTM DEPARTM INTRADERM AL NONEMERGE A0100 [facility] 4 [facility] TRANSPORT ENTERPRIS MANAGEMEN ATION; ES T, TAXI NONEMERGE A0100 [facility] 4 TRANSIT HEALTH TRANSPORT ENTERPRIS MANAGEMEN ATION; ES T, TAXI NONEMERGE A0100 [facility] 4 TRANSIT HEALTH TRANSPORT ENTERPRIS MANAGEMEN ATION; ES T, TAXI NONEMERGE A0100 [facility] 4 TRANSIT HEALTH TRANSPORT ENTERPRIS MANAGEMEN ATION; ES T, TAXI NONEMERGE A0100 [facility] 4 TRANSIT HEALTH TRANSPORT ENTERPRIS MANAGEMEN ATION; ES T, TAXI O2 CONC 1 E1390 [facility] 4 MEDICAL MEDICAL 85%/>02 LLC; LLC; [facility] AT [facility] FLW RATE NONEMERGE A0100 [facility] 4 TRANS[facility] HEALTH TRANSPORT ENTERPRIS MANAGEMEN ATION; ES T, TAXI NONEMERGE A0100 [facility] 4 TRANSIT HEALTH TRANSPORT ENTERPRIS MANAGEMEN ATION; ES T, TAXI NONEMERGE A0100 [facility] 4 TRANSIT HEALTH TRANSPORT ENTERPRIS MANAGEMEN ATION; ES T, TAXI HOME CARE S5108 [facility] 4 [facility]NOTE 3] HOME D AREA D AREA CARE AGENCY AGENCY CLIENT PER 15 MIN NONEMERGE A0100 [facility] 4 [facility] HE[facility] TRANSPORT ENTERPRIS MANAGEMEN ATION; ES T, TAXI NONEMERGE A0100 [facility] 4 TRANS[facility] HEALTH TRANSPORT ENTERPRIS MANAGEMEN ATION; ES T, TAXI NONEMERGE A0100 [facility] 4 TRANSIT HEALTH TRANSPORT ENTERPRIS MANAGEMEN ATION; ES T, TAXI NONEMERGE A0100 [facility] 4 TRANSIT HEALTH TRANSPORT ENTERPRIS MANAGEMEN ATION; ES T, TAXI LANCETS A4259 ARRIVA ARRIVA PER BOX 4 MEDICAL MEDICAL OF 100 NORMAL A4256 ARRIVA ARRIVA LOW AND 4 MEDICAL MEDICAL HIGH CALIBRATO R SOLUTION/ CHIPS BLD GLU A4253 ARRIVA ARRIVA TEST/REAG 4 MEDICAL MEDICAL T STRIPS HOME BLD GLU MON-50 NONEMERGE A0100 [facility] 4 [facility]ALTH TRANSPORT ENTERPRIS MANAGEMEN ATION; ES T, TAXI NONEMERGE A0100 [facility] 4 TRANSIT HEALTH TRANSPORT ENTERPRIS MANAGEMEN ATION; ES T, TAXI NONEMERGE A0100 [facility] 4 TRANSIT HEALTH TRANSPORT ENTERPRIS MANAGEMEN ATION; ES T, TAXI NONEMERGE A0100 [facility] 4 TRANSIT HEALTH TRANSPORT ENTERPRIS MANAGEMEN ATION; ES T, TAXI NONEMERGE A0100 [facility] 4 TRANSIT HEALTH TRANSPORT ENTERPRIS MANAGEMEN ATION; ES T, TAXI NONEMERGE A0100 [facility] 4 TRANSIT HEALTH TRANSPORT ENTERPRIS MANAGEMEN ATION; ES T, TAXI NONEMERGE A0100 [facility] 4 TRANSIT HEALTH TRANSPORT ENTERPRIS MANAGEMEN ATION; ES T, TAXI HOME CARE S5108 [address] [facility] AREA CARE AGENCY AGENCY CLIENT PER 15 MIN NONEMERGE A0100 [facility] 4 TRANS[facility] HEALTH TRANSPORT ENTERPRIS MANAGEMEN ATION; ES T, TAXI NONEMERGE A0100 [facility] 4 TRANSIT HEALTH TRANSPORT ENTERPRIS MANAGEMEN ATION; ES T, TAXI O2 CONC 1 E1390 [facility] 4 MEDICAL MEDICAL 85%/>02 LLC; LLC; CONC AT [facility] FLW RATE HOME CARE S5108 Talento al Aula [facility] 4 [facility] D AREA D AREA CARE AGENCY AGENCY CLIENT PER 15 MIN NONEMERGE A0100 [facility] 4 TRANSIT HEALTH TRANSPORT ENTERPRIS MANAGEMEN ATION; ES T, TAXI NONEMERGE A0100 [facility] 4 TRANSIT HEALTH TRANSPORT ENTERPRIS MANAGEMEN ATION; ES T, TAXI NONEMERGE A0100 [facility] 4 TRANSIT HEALTH TRANSPORT ENTERPRIS MANAGEMEN ATION; ES T, [facility] HOME CARE S5108 [facility] 4 [facility] AREA CARE AGENCY AGENCY CLIENT PER 15 MIN NONEMERGE A0100 [facility] 4 TRANSIT HEALTH TRANSPORT ENTERPRIS MANAGEMEN ATION; ES T, TAXI NONEMERGE A0100 [facility] 4 TRANSIT HEALTH TRANSPORT ENTERPRIS MANAGEMEN ATION; ES T, TAXI NONEMERGE A0100 [facility] 4 TRANSIT HEALTH TRANSPORT ENTERPRIS MANAGEMEN ATION; ES T, TAXI NONEMERGE A0100 [facility] 4 TRANSIT HEALTH TRANSPORT ENTERPRIS MANAGEMEN ATION; ES T, TAXI O2 CONC 1 E1390 [facility] 4 MEDICAL MEDICAL 85%/>02 LLC; LLC; CONC AT [facility] FLW RATE NONEMERGE A0100 [facility] 4 TRANSIT HEALTH TRANSPORT ENTERPRIS MANAGEMEN ATION; ES T, TAXI NONEMERGE A0100 [facility] 4 TRANSIT HEALTH TRANSPORT ENTERPRIS MANAGEMEN ATION; ES T, TAXI PROTHROMB 70341 [facility] IN TIME 4 O MEDICAL O MEDICAL ASSOC LA ASSOC LA NONEMERGE A0100 [facility] 4 TRANSIT HEALTH TRANSPORT ENTERPRIS MANAGEMEN ATION; ES T, TAXI NONEMERGE A0100 [facility] 4 TRANSIT HEALTH TRANSPORT ENTERPRIS MANAGEMEN ATION; ES T, [facility] HOME CARE S5108 [facility] 4 [facility] AREA CARE AGENCY AGENCY CLIENT PER 15 MIN SBSQ 31362 [facility] 4 CARDIOLOG CARE/DAY Y 35 MINUTES ECG 15282 CARDIO ABOU ROUTINE 4 AND TREMAINE ECG ELECTRO TAR W/LEAST SPECIALIS 12 LDS I&R ONLY SBSQ [id number] [facility] 4 CARDIOLOG CARE/DAY Y 35 MINUTES ECG 04100 CARDIO ABOU ROUTINE 4 AND TREMAINE ECG ELECTRO TAR W/LEAST SPECIALIS 12 LDS I&R ONLY RADIOLOGI 90016 [facility] C EXAM 4 CHEST 2 RADIOLOGY VIEWS ASSOC FRONTAL&L ATERAL NONEMERGE A0100 [facility] 4 TRANSIT HEALTH TRANSPORT ENTERPRIS MANAGEMEN ATION; ES T, TAXI NONEMERGE A0100 [facility] 4 TRANSIT HEALTH TRANSPORT ENTERPRIS MANAGEMEN ATION; ES T, TAXI NONEMERGE A0100 [facility] 4 [facility] TRANSPORT ENTERPRIS MANAGEMEN ATION; ES T, TAXI O2 CONC 1 E1390 [facility] 4 MEDICAL MEDICAL 85%/>02 [facility]; [facility]; CONC AT [facility] FLW RATE PROTHROMB 49492 [facility] IN TIME 4 O MEDICAL O MEDICAL ASSOC LA ASSOC LA NONEMERGE A0100 [facility] 4 [facility] HE[facility] TRANSPORT ENTERPRIS MANAGEMEN ATION; ES T, TAXI NONEMERGE A0100 [facility] 4 TRANS[facility] HEALTH TRANSPORT ENTERPRIS MANAGEMEN ATION; ES T, TAXI HOME CARE S5108 [facility] TRAINING 4 [facility] D AREA D AREA CARE AGENCY AGENCY CLIENT PER 15 MIN REPL LIU A4233 ARRIVA ARRIVA ALKALINE 4 MEDICAL MEDICAL NOT J CELL MERON BG MON OWND PT PROTHROMB 16085 [facility] IN TIME 4 O MEDICAL O MEDICAL ASSOC LA ASSOC LA NONEMERGE A0100 [facility] 4 [facility] TRANSPORT ENTERPRIS MANAGEMEN ATION; ES T, TAXI SPRING-PO A4258 ARRIVA ARRIVA 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 A4253 ARRIVA ARRIVA TEST/REAG 4 MEDICAL MEDICAL T STRIPS HOME BLD GLU MON-50 NORMAL A4256 ARRIVA ARRIVA LOW AND 4 MEDICAL MEDICAL HIGH CALIBRATO R SOLUTION/ CHIPS LANCETS A4259 ARRIVA ARRIVA PER BOX 4 MEDICAL MEDICAL OF 100 NONEMERGE A0100 [facility] 4 [facility] TRANSP[facility] ENTERPRIS MANAGEMEN ATION; ES T, TAXI NONEMERGE A0100 [facility] 4 [facility] HE[facility] TRANSPORT ENTERPRIS MANAGEMEN ATION; ES T, TAXI NONEMERGE A0100 [facility] 4 [facility] TRANSPORT ENTERPRIS MANAGEMEN ATION; ES T, TAXI NONEMERGE A0100 [facility] 4 [facility] TRANSPORT ENTERPRIS MANAGEMEN ATION; ES T, TAXI NONEMERGE A0100 [facility] 4 [facility] TRANSPORT ENTERPRIS MANAGEMEN ATION; ES T, TAXI PROTHROMB 86046 [facility] IN TIME 4 [facility] COLLECTIO 55573 [facility] N VENOUS 4 HOSP [place] [address] [facility] INFUSION 4 [facility]P INC H[facility]P INC HYDRATION INITIAL 31 MIN-1 HOUR INJECTION [id number] [place] [address] [facility] INC ONDANSETR ON HCL PER 1 MG BLOOD 10592 [facility] COUNT 4 [facility]P INC COMPLETE AUTO&[place] [address] [facility] TROPONIN 4 HOSP INC HOSP INC QUANTITAT TIKA CREATINE 44737 [facility] KINASE MB 4 HOSP INC [facility]P [facility] FRACTION ONLY CREATINE 01750 [facility] KINASE 4 HOSP INC HOSP INC TOTAL RADIOLOGI 51057 [facility] C 4 HOSP INC HOSP INC EXAMINATI ON CHEST SINGLE VIEW FRONTAL THROMBOPL 55282 [facility] ASTIN 4 HOSP INC HOSP INC TIME PARTIAL PLASMA/WH OLE BLOOD THER 02472 [facility] PROPH/DX 4 HOSP INC HOSP INC NJX IV PUSH SINGLE/1S T SBST/DRUG URNLS DIP 27176 [facility] 4 HOSP INC HOSP INC STICK/TAB LET RGNT AUTO W/O MICROSCOP Y ECG 12333 [facility] ROUTINE 4 HOSP INC HOSP INC ECG W/LEAST 12 LDS TRCG ONLY W/O I&R COMPREHEN 38008 [facility] SIVE 4 HOSP INC HOSP INC METABOLIC PANEL GROUND A0425 [facility] MILEAGE 4 EMS EMS PER STATUTE MILE AMBULANCE A0429 [facility] SERVICE 4 EMS EMS BLS EMERGENCY TRANSPORT NONEMERGE A0100 [facility] 4 [facility] TRANSPORT ENTERPRIS MANAGEMEN ATION; ES T, TAXI NONEMERGE A0100 [facility] 4 TRANS[facility] HEALTH TRANSPORT ENTERPRIS MANAGEMEN ATION; ES T, TAXI NONEMERGE A0100 [facility] 4 TRANS[facility] HEALTH TRANSPORT ENTERPRIS MANAGEMEN ATION; ES T, TAXI NONEMERGE A0100 [facility] 4 TR[facility] TRANSPORT ENTERPRIS MANAGEMEN ATION; ES T, T[facility]I HOME CARE S5108 [facility] 4 [facility] AREA D AREA CARE AGENCY AGENCY CLIENT PER 15 MIN O2 CONC 1 E1390 [facility] 4 MEDICAL MEDICAL 85%/>02 LLC; LLC; CONC AT [facility] FLW RATE ECG 77161 [facility] ROUTINE 4 O MEDICAL JUAN ECG W/LEAST ASSOCIATE 12 LDS TRCG ONLY W/O I&R NONEMERGE A0100 [facility] 4 [facility] TRANSPORT ENTERPRIS MANAGEMEN ATION; ES T, TAXI NONEMERGE A0100 [facility] 4 [facility] TRANSPORT ENTERPRIS MANAGEMEN ATION; ES T, TAXI COMPREHEN 15864 [facility] SIVE 4 O MEDICAL O MEDICAL METABOLIC ASSOC LA ASSOC LA PANEL LIPID 92850 [facility] PANEL 4 O MEDICAL O MEDICAL ASSOC LA ASSOC LA COLLECTIO 46848 [facility] N VENOUS 4 O MEDICAL O MEDICAL BLOOD ASSOC LA ASSOC LA VENIPUNCT URE PROTHROMB 48924 [facility] IN TIME 4 O MEDICAL O MEDICAL ASSOC LA ASSOC LA NONEMERGE A0100 [facility] 4 [facility] TRANSPORT ENTERPRIS MANAGEMEN ATION; ES T, TAXI HOME CARE S5108 [facility] TRAINING 4 [facility] D AREA D AREA CARE AGENCY AGENCY CLIENT PER 15 MIN IAADIADOO 02058 [facility] 4 O MEDICAL O MEDICAL STREPTOCO ASSOC LA ASSOC LA CCUS GROUP A IAADIADOO 53277 [facility] 4 O MEDICAL O MEDICAL INFLUENZA ASSOC LA ASSOC LA URNLS DIP 24115 [facility] 4 O MEDICAL O MEDICAL STICK/TAB ASSOC LA ASSOC LA LET RGNT AUTO W/O MICROSCOP Y COLLECTIO 85419 [facility] N VENOUS 4 O MEDICAL O MEDICAL BLOOD ASSOC LA ASSOC LA VENIPUNCT URE BLOOD 29036 [facility] COUNT 4 O MEDICAL O MEDICAL COMPLETE ASSOC LA ASSOC LA AUTO&AUTO DIFRNTL WBC CREATININ 93196 [facility] E OTHER 4 O MEDICAL O MEDICAL SOURCE ASSOC LA ASSOC LA NONEMERGE A0100 [facility] 4 [facility] TRANSPORT ENTERPRIS MANAGEMEN ATION; ES T, TAXI NONEMERGE A0100 [facility] 4 [facility] TRANSPORT ENTERPRIS MANAGEMEN ATION; ES T, TAXI NONEMERGE A0100 [facility] 4 TRANS[facility] HEALTH TRANSPORT ENTERPRIS MANAGEMEN ATION; ES T, TAXI NONEMERGE A0100 [facility] 4 [facility]SPORT ENTERPRIS MANAGEMEN [place]ION; ES [place], [place] [address] [facility] THYROID 4 O MEDICAL O MEDICAL STIMULATI ASSOC LA ASSOC LA NG HORMONE TSH BLOOD 63599 [facility] COUNT 4 O MEDICAL O MEDICAL COMPLETE ASSOC LA ASSOC LA AUTO&AUTO DIFRNTL WBC COLLECTIO 72154 [facility] N VENOUS 4 O MEDICAL O MEDICAL BLOOD ASSOC LA ASSOC LA VENIPUNCT URE PROTHROMB 74237 [facility] IN TIME 4 O MEDICAL O MEDICAL ASSOC LA ASSOC LA COMPREHEN 41863 [facility] 4 O MEDICAL O MEDICAL METABOLIC ASSOC LA ASSOC LA PANEL NONEMERGE A0100 [facility] 4 TRANS[facility] HEALTH TRANSPORT ENTERPRIS MANAGEMEN ATION; ES T, TAXI NONEMERGE A0100 [facility] 4 TRANS[facility] HEALTH TRANSPORT ENTERPRIS MANAGEMEN ATION; ES T, TAXI NONEMERGE A0100 [facility] 4 TRANSIT HEALTH TRANSPORT ENTERPRIS MANAGEMEN ATION; ES T, TAXI NONEMERGE A0100 [facility] 4 TRANS[facility] HEALTH TRANSPORT ENTERPRIS MANAGEMEN ATION; ES T, TAXI HOME CARE S5108 Talento al Aula [facility] 4 [facility] ARE[facility] D AREA CARE AGENCY AGENCY CLIENT PER 15 MIN DISPBL T4535 PERSONAL PERSONAL LINER/JARED 4 TOUCH TOUCH ELD/GUARD HOME SHELTER CARE /PAD/UNDG OF OF RMNT INCONT EA NONEMERGE A0100 [facility] 4 TRANS[facility] HEALTH TRANSPORT ENTERPRIS MANAGEMEN ATION; ES T, TAXI NONEMERGE A0100 [facility] 4 TRANS[facility] HEALTH TRANSPORT ENTERPRIS MANAGEMEN ATION; ES T, TAXI NONEMERGE A0100 [facility] 4 TRANSIT HEALTH TRANSPORT ENTERPRIS MANAGEMEN ATION; ES T, TAXI NONEMERGE A0100 [facility] 4 TRANS[facility] HEALTH TRANSPORT ENTERPRIS MANAGEMEN ATION; ES T, TAXI O2 CONC 1 E1390 [facility] 4 MEDICAL MEDICAL 85%/>02 [facility] CONC AT [facility] FLW RATE NONEMERGE A0100 [facility] 4 TRANS[facility] HEALTH TRANSPORT ENTERPRIS MANAGEMEN ATION; ES T, TAXI HOME CARE S5108 [facility] 4 [facility] AREA AREA CARE AGENCY AGENCY CLIENT PER 15 MIN NONEMERGE A0100 [facility] 3 TRANS[facility] HE[facility] TRANSPORT ENTERPRIS MANAGEMEN ATION; ES T, TAXI NONEMERGE A0100 [facility] 3 TRANSIT HEALTH TRANSPORT ENTERPRIS MANAGEMEN ATION; ES T, TAXI NONEMERGE A0100 [facility] 3 TRANS[facility] HEALTH TRANSPORT ENTERPRIS MANAGEMEN ATION; ES T, TAXI NONEMERGE A0100 [facility] 3 TRANS[facility] HEALTH TRANSPORT ENTERPRIS MANAGEMEN ATION; ES T, TAXI NONEMERGE A0100 [facility] 3 TRANSIT HEALTH TRANSPORT ENTERPRIS MANAGEMEN ATION; ES T, TAXI NONEMERGE A0100 [facility] 3 TRANSIT HEALTH TRANSPORT ENTERPRIS MANAGEMEN ATION; ES T, TAXI NONEMERGE A0100 [facility] 3 TRANSIT HEALTH TRANSPORT ENTERPRIS MANAGEMEN ATION; ES T, TAXI NONEMERGE A0100 [facility] 3 TRANSIT HEALTH TRANSPORT ENTERPRIS MANAGEMEN ATION; ES T, TAXI NONEMERGE A0100 [facility] 3 TRANSIT HEALTH TRANSPORT ENTERPRIS MANAGEMEN ATION; ES T, TAXI NONEMERGE A0100 [facility] 3 TRANSIT HEALTH TRANSPORT ENTERPRIS MANAGEMEN ATION; ES T, TAXI HOME CARE S5108 [facility] 3 [facility] HOME D AREA D AREA CARE AGENCY AGENCY CLIENT PER 15 MIN NONEMERGE A0100 [facility] 3 TRANS[facility] HEALTH TRANSPORT ENTERPRIS MANAGEMEN ATION; ES T, TAXI NONEMERGE A0100 [facility] 3 TRANSIT HEALTH TRANSPORT ENTERPRIS MANAGEMEN ATION; ES T, TAXI NONEMERGE A0100 [facility] 3 TRANSIT HEALTH TRANSPORT ENTERPRIS MANAGEMEN ATION; ES T, TAXI NONEMERGE A0100 [facility] 3 TRANSIT HEALTH TRANSPORT ENTERPRIS MANAGEMEN ATION; ES T, TAXI O2 CONC 1 E1390 [facility] 3 MEDICAL MEDICAL 85%/>02 [facility] MURILLO CONC AT [facility] FLW RATE NONEMERGE A0100 [facility] 3 TRANS[facility] HEALTH TRANSPORT ENTERPRIS MANAGEMEN ATION; ES T, TAXI NONEMERGE A0100 [facility] 3 TRANSIT HEALTH TRANSPORT ENTERPRIS MANAGEMEN ATION; ES T, TAXI NONEMERGE A0100 [facility] 3 TRANSIT HEALTH TRANSPORT ENTERPRIS MANAGEMEN ATION; ES T, TAXI NONEMERGE A0100 [facility] 3 TRANS[facility] HEALTH TRANSPORT ENTERPRIS MANAGEMEN ATION; ES T, TAXI LANCETS A4259 ARRIVA ARRIVA PER BOX 3 MEDICAL MEDICAL OF 100 NORMAL A4256 ARRIVA ARRIVA LOW AND 3 MEDICAL MEDICAL HIGH CALIBRATO R SOLUTION/ CHIPS BLD GLU A4253 ARRIVA ARRIVA TEST/REAG 3 MEDICAL MEDICAL T STRIPS HOME BLD GLU MON-50 NONEMERGE A0100 [facility] 3 TRANS[facility] HEALTH TRANSPORT ENTERPRIS MANAGEMEN ATION; ES T, TAXI NONEMERGE A0100 [facility] 3 TRANSIT HEALTH TRANSPORT ENTERPRIS MANAGEMEN ATION; ES T, TAXI NONEMERGE A0100 [facility] 3 TRANSIT HEALTH TRANSPORT ENTERPRIS MANAGEMEN ATION; ES T, TAXI NONEMERGE A0100 [facility] 3 TRANSIT HEALTH TRANSPORT ENTERPRIS MANAGEMEN ATION; ES T, TAXI NONEMERGE A0100 [facility] 3 TRANSIT HEALTH TRANSPORT ENTERPRIS MANAGEMEN ATION; ES T, TAXI NONEMERGE A0100 [facility] 3 TRANSIT HEALTH TRANSPORT ENTERPRIS MANAGEMEN ATION; ES T, TAXI NONEMERGE A0100 [facility] 3 TRANSIT HEALTH TRANSPORT ENTERPRIS MANAGEMEN ATION; ES T, TAXI NONEMERGE A0100 [facility] 3 TRANS[facility] HEALTH TRANSPORT ENTERPRIS MANAGEMEN ATION; ES T, T[facility]I HOME CARE S5108 [facility] 3 [facility]] HOME D AREA D AREA CARE AGENCY AGENCY CLIENT PER 15 MIN NONEMERGE A0100 [facility] 3 TR[facility] HE[facility] TRANSPORT ENTERPRIS MANAGEMEN ATION; ES T, TAXI NONEMERGE A0100 [facility] 3 TRANS[facility] HEALTH TRANSPORT ENTERPRIS MANAGEMEN ATION; ES T, TAXI NONEMERGE A0100 [facility] 3 TRANS[facility] HEALTH TRANSPORT ENTERPRIS MANAGEMEN ATION; ES T, TAXI NONEMERGE A0100 [facility] 3 [facility] TRANSPORT ENTERPRIS MANAGEMEN ATION; ES T, TAXI O2 CONC 1 E1390 [facility] 3 MEDICAL MEDICAL 85%/>02 [facility] SOMEPROSPERET CONC AT [facility] FLW RATE NONEMERGE A0100 [facility] 3 [facility] TRANSPORT ENTERPRIS MANAGEMEN ATION; ES T, TAXI NONEMERGE A0100 [facility] 3 TRANS[facility] HEALTH TRANSPORT ENTERPRIS MANAGEMEN ATION; ES T, TAXI NONEMERGE A0100 [facility] 3 [facility]ANS[facility] HEALTH TRANSPORT ENTERPRIS MANAGEMEN ATION; ES T, TAXI NONEMERGE A0100 [facility] 3 TRANS[facility] HEALTH TRANSPORT ENTERPRIS MANAGEMEN ATION; ES T, TAXI NONEMERGE A0100 [facility] 3 [facility] TRANSPORT ENTERPRIS MANAGEMEN ATION; ES T, T[facility]I HOME CARE S5108 [facility] 3 [facility] AREA D AREA CARE AGENCY AGENCY CLIENT PER 15 MIN PROTHROMB 12292 [facility] IN TIME 3 O MEDICAL O MEDICAL ASSOC LA ASSOC LA NONEMERGE A0100 [facility] 3 [facility]ANS[facility] HE[facility] TRANSPORT ENTERPRIS MANAGEMEN ATION; ES T, TAXI NONEMERGE A0100 [facility] 3 TRANS[facility] HEALTH TRANSPORT ENTERPRIS MANAGEMEN ATION; ES T, TAXI NONEMERGE A0100 [facility] 3 TRANSIT HEALTH TRANSPORT ENTERPRIS MANAGEMEN ATION; ES T, TAXI NONEMERGE A0100 [facility] 3 TRANS[facility] HEALTH TRANSPORT ENTERPRIS MANAGEMEN ATION; ES T, TAXI NONEMERGE A0100 [facility] 3 TRANS[facility] HEALTH TRANSPORT ENTERPRIS MANAGEMEN ATION; ES T, TAXI NONEMERGE A0100 [facility] 3 TRANS[facility] HE[facility] TRANSPORT ENTERPRIS MANAGEMEN ATION; ES T, TAXI NONEMERGE A0100 [facility] 3 TRANS[facility] HEALTH TRANSPORT ENTERPRIS MANAGEMEN ATION; ES T, TAXI NONEMERGE A0100 [facility] 3 [facility] TRANSPORT ENTERPRIS MANAGEMEN ATION; ES T, TAXI PROTHROMB 60595 [facility] IN TIME 3 O MEDICAL O MEDICAL ASSOC LA ASSOC LA BLOOD 88912 [facility] COUNT 3 O MEDICAL O MEDICAL COMPLETE ASSOC LA ASSOC LA AUTO&AUTO DIFRNTL WBC COMPREHEN 29607 [facility] SIVE 3 O MEDICAL O MEDICAL METABOLIC ASSOC LA ASSOC LA PANEL COLLECTIO 21119 [facility] N VENOUS 3 O MEDICAL O MEDICAL BLOOD ASSOC LA ASSOC LA VENIPUNCT URE ALBUMIN 58183 [facility] LAB GALA URINE 3 DAVID DAVID MICROALBU [place] [address] [facility] THYROID 3 O MEDICAL O MEDICAL STIMULATI ASSOC LA ASSOC LA NG HORMONE TSH CREATININ 94109 [facility] LAB GALA E OTHER 3 DAVID DAVID SOURCE [facility] HOLDINGS HEMOGLOBI 10655 [facility] N 3 O MEDICAL O MEDICAL GLYCOSYLA ASSOC LA ASSOC LA DOTTIE A1C LIPID 84351 [facility] PANEL 3 O MEDICAL O MEDICAL ASSOC LA ASSOC LA NONEMERGE A0100 [facility] 3 [facility] ENTERPRIS MANAGEMEN ATION; ES T, TAXI NONEMERGE A0100 [facility] 3 [facility] TRANSPORT ENTERPRIS MANAGEMEN ATION; ES T, TAXI HOME CARE S5108 [facility] 3 [facility] AREA D AREA CARE AGENCY AGENCY CLIENT PER 15 MIN NONEMERGE A0100 [facility] 3 [facility]SP[facility] ENTERPRIS MANAGEMEN ATION; ES T, TAXI NONEMERGE A0100 [facility] 3 [facility] TRANSPORT ENTERPRIS MANAGEMEN ATION; ES T, TAXI NONEMERGE A0100 [facility] 3 TRANS[facility] HEALTH TRANSPORT ENTERPRIS MANAGEMEN ATION; ES T, TAXI NONEMERGE A0100 [facility] 3 [facility] TRANSPORT ENTERPRIS MANAGEMEN ATION; ES T, TAXI O2 CONC 1 E1390 [facility] 3 MEDICAL MEDICAL 85%/>02 [facility] BORGES AT [facility] FLW RATE NONEMERGE A0100 [facility] 3 [facility] TRANSPORT ENTERPRIS MANAGEMEN ATION; ES T, TAXI NONEMERGE A0100 [facility] 3 TRANS[facility] HEALTH TRANSPORT ENTERPRIS MANAGEMEN ATION; ES T, TAXI NONEMERGE A0100 [facility] 3 TRANS[facility] HEALTH TRANSPORT ENTERPRIS MANAGEMEN ATION; ES T, TAXI NONEMERGE A0100 [facility] 3 TRANS[facility] HEALTH TRANSPORT ENTERPRIS MANAGEMEN ATION; ES T, TAXI NONEMERGE A0100 [facility] 3 [facility] TRANSPORT ENTERPRIS MANAGEMEN ATION; ES T, TAXI HOME CARE S5108 [facility] 3 [facility] D AREA D AREA CARE AGENCY AGENCY CLIENT PER 15 MIN NONEMERGE A0100 [facility] 3 [facility] TRANSPORT ENTERPRIS MANAGEMEN ATION; ES T, TAXI NONEMERGE A0100 [facility] 3 TRANS[facility] HEALTH TRANSPORT ENTERPRIS MANAGEMEN ATION; ES T, TAXI NONEMERGE A0100 [facility] 3 TRANS[facility] HEALTH TRANSPORT ENTERPRIS MANAGEMEN ATION; ES T, TAXI NONEMERGE A0100 [facility] 3 TRANS[facility] HEALTH TRANSPORT ENTERPRIS MANAGEMEN ATION; ES T, TAXI NONEMERGE A0100 [facility] 3 TRANS[facility] HEALTH TRANSPORT ENTERPRIS MANAGEMEN ATION; ES T, TAXI NONEMERGE A0100 [facility] 3 TRANS[facility] HEALTH TRANSPORT ENTERPRIS MANAGEMEN ATION; ES T, TAXI NONEMERGE A0100 [facility] 3 TRANS[facility] HEALTH TRANSPORT ENTERPRIS MANAGEMEN ATION; ES T, TAXI NONEMERGE A0100 [facility] 3 TRANS[facility] HE[facility] TRANSPORT ENTERPRIS MANAGEMEN ATION; ES T, TAXI NONEMERGE A0100 [facility] 3 TRANS[facility] HEALTH TRANSPORT ENTERPRIS MANAGEMEN ATION; ES T, TAXI NONEMERGE A0100 [facility] 3 [facility] TRANSPORT ENTERPRIS MANAGEMEN ATION; ES T, TAXI HOME CARE S5108 [facility] 3 [facility] AREA D AREA CARE AGENCY AGENCY CLIENT PER 15 MIN NONEMERGE A0100 [facility] 3 [facility]SP[facility] ENTERPRIS MANAGEMEN ATION; ES T, TAXI NONEMERGE A0100 [facility] 3 [facility] TRANSPORT ENTERPRIS MANAGEMEN ATION; ES T, TAXI NONEMERGE A0100 [facility] 3 [facility] TRANSPORT ENTERPRIS MANAGEMEN ATION; ES T, TAXI NONEMERGE A0100 [facility] 3 [facility] TRANSPORT ENTERPRIS MANAGEMEN ATION; ES T, TAXI MISC [place] T1999 Talento al Aula ITEMS & 3 [facility] D AREA D AREA RETAIL AGENCY AGENCY PURCHASE NOC O2 CONC 1 E1390 [facility] MEDICAL MEDICAL 85%/>02 [facility] CONC AT [facility] PRSC FLW RATE NONEMERGE A0100 [facility] 3 [facility]SP[facility] ENTERPRIS MANAGEMEN ATION; ES T, TAXI NONEMERGE A0100 [facility] 3 [facility] TRANSPORT ENTERPRIS MANAGEMEN ATION; ES T, TAXI NONEMERGE A0100 [facility] 3 [facility] TRANSP[facility] ENTERPRIS MANAGEMEN ATION; ES T, TAXI COLLECTIO 59698 [facility] N VENOUS 3 O MEDICAL O MEDICAL BLOOD ASSOC LA ASSOC LA VENIPUNCT URE LIPID 97017 [facility] PANEL 3 O MEDICAL O MEDICAL ASSOC LA ASSOC LA COMPREHEN 35422 [facility] SIVE 3 O MEDICAL O MEDICAL METABOLIC ASSOC LA ASSOC LA PANEL HOME CARE S5108 [facility] ARE[facility] D AREA CARE AGENCY AGENCY CLIENT PER 15 MIN NONEMERGE A0100 [facility] 3 [facility] TRANSPORT ENTERPRIS MANAGEMEN ATION; ES T, TAXI NONEMERGE A0100 [facility] 3 [facility] TRANSPORT ENTERPRIS MANAGEMEN ATION; ES T, TAXI BLD GLU A4253 ARRIVA ARRIVA TEST/REAG 3 MEDICAL MEDICAL T STRIPS HOME BLD GLU MON-50 LANCETS A4259 ARRIVA ARRIVA PER BOX 3 MEDICAL MEDICAL OF 100 HOME E0607 ARR[facility]A ARRIVA BLOOD 3 MEDICAL MEDICAL GLUCOSE MONITOR NONEMERGE A0100 [facility] 3 [facility] TRANSP[facility] ENTERPRIS MANAGEMEN ATION; ES T, TAXI NONEMERGE A0100 [facility] 3 TRANS[facility] HEALTH TRANSPORT ENTERPRIS MANAGEMEN ATION; ES T, TAXI NONEMERGE A0100 [facility] 3 TRANSIT HEALTH TRANSPORT ENTERPRIS MANAGEMEN ATION; ES T, TAXI NONEMERGE A0100 [facility] 3 TRANS[facility] HEALTH TRANSPORT ENTERPRIS MANAGEMEN ATION; ES T, TAXI NONEMERGE A0100 [facility] 3 TRANS[facility] HEALTH TRANSPORT ENTERPRIS MANAGEMEN ATION; ES T, TAXI NONEMERGE A0100 [facility] 3 TRANS[facility] HEALTH TRANSPORT ENTERPRIS MANAGEMEN ATION; ES T, TAXI NONEMERGE A0100 [facility] 3 TRANS[facility] HEALTH TRANSPORT ENTERPRIS MANAGEMEN ATION; ES T, TAXI NONEMERGE A0100 [facility] 3 TRANSIT HEALTH TRANSPORT ENTERPRIS MANAGEMEN ATION; ES T, TAXI NONEMERGE A0100 [facility] 3 TR[facility] TRANSPORT ENTERPRIS MANAGEMEN ATION; ES T, TAXI HOME CARE S5108 [facility] 3 [facility] D AREA D AREA CARE AGENCY AGENCY CLIENT PER 15 MIN NONEMERGE A0100 [facility] 3 [facility] TRANSPORT ENTERPRIS MANAGEMEN ATION; ES T, [facility] NONEMERGE A0100 [facility] 3 [facility] TRANSPORT ENTERPRIS MANAGEMEN ATION; ES T, [place] NONEMERGE A0100 [facility] 3 [facility] TRANSPORT ENTERPRIS MANAGEMEN ATION; ES T, [place] NONEMERGE A0100 [facility] 3 [facility] TRANSPORT ENTERPRIS MANAGEMEN ATION; ES T, [place] NONEMERGE A0100 [facility] 3 [facility] TRANSPORT ENTERPRIS MANAGEMEN ATION; ES T, [facility] O2 CONC 1 [id number] [facility] MEDICAL MEDICAL 85%/>02 [facility] AT [facility] FLW RATE NONEMERGE A0100 [facility] 3 [facility] TRANSPORT ENTERPRIS MANAGEMEN ATION; ES T, [place] NONEMERGE A0100 [facility] 3 [facility] TRANSPORT ENTERPRIS MANAGEMEN ATION; ES T, [place] NONEMERGE A0100 [facility] 3 [facility] TRANSPORT ENTERPRIS MANAGEMEN ATION; ES T, [place] NONEMERGE A0100 [facility] 3 [facility] TRANSPORT ENTERPRIS MANAGEMEN ATION; ES T, [facility] S5108 [facility] 3 [facility] [place]NOTE 3] HOME D AREA D AREA CARE AGENCY AGENCY CLIENT PER 15 MIN NONEMERGE A0100 [facility] 3 [facility] TRANSPORT ENTERPRIS MANAGEMEN ATION; ES T, [place] NONEMERGE A0100 [facility] 3 [facility] TRANSPORT ENTERPRIS MANAGEMEN ATION; ES T, [place] NONEMERGE A0100 [facility] 3 [facility] TRANSPORT ENTERPRIS MANAGEMEN ATION; ES T, [place] NONEMERGE A0100 [facility] 3 [facility] TRANSPORT ENTERPRIS MANAGEMEN ATION; ES T, [place] NONEMERGE A0100 [facility] 3 [facility] TRANSPORT ENTERPRIS MANAGEMEN ATION; ES T, [facility] PROTHROMB [id number] [facility] IN TIME 3 O MEDICAL O MEDICAL ASSOC LA ASSOC LA NONEMERGE A0100 [facility] 3 [facility] TRANSPORT ENTERPRIS MANAGEMEN ATION; ES T, [place] NONEMERGE A0100 [facility] 3 [facility] TRANSPORT ENTERPRIS MANAGEMEN ATION; ES T, [place] NONEMERGE A0100 [facility] 3 [facility] TRANSPORT ENTERPRIS MANAGEMEN ATION; ES T, [place] NONEMERGE A0100 [facility] 3 [facility] TRANSPORT ENTERPRIS MANAGEMEN ATION; ES T, [facility] PROTHROMB [id number] [facility] IN TIME 3 O MEDICAL O [facility]ICAL [facility] LA ASSOC LA NONEMERGE A0100 [facility]SP[facility] ENTERPRIS MANAGEMEN ATION; ES T, [facility] NONEMERGE A0100 [facility] 3 [facility] TRANSPORT ENTERPRIS MANAGEMEN ATION; ES T, [facility] S5108 [facility] 3 [facility] [place]NOTE 3] HOME D AREA D AREA CARE AGENCY AGENCY CLIENT PER 15 MIN NONEMERGE A0100 [facility] 3 [facility]SPORT ENTERPRIS MANAGEMEN ATION; ES T, [facility] NONEMERGE A0100 [facility] 3 [facility] TRANSPORT ENTERPRIS MANAGEMEN ATION; ES T, [facility] LIPID 13898 [facility] PANEL 3 O MEDICAL O [facility]EN [id number] [facility] O MED[facility] O MEDICAL METABOLIC ASSOC [facility] PANEL COLLECTIO 56779 [facility] VENOUS 3 O MEDICAL O MEDICAL BLOOD ASSOC LA ASSOC LA VENIPUNCT URE PROTHROMB [id number] [facility] IN TIME 3 O MEDICAL O MEDICAL [facility]OC [facility] LA BLOOD 41387 [facility] COUNT 3 O MEDICAL O MEDICAL COMPLETE ASSOC LA ASSOC LA AUTO&AUTO DIFRNTL WBC HEMOGLOBI 41900 [facility] N 3 O MEDICAL O MEDICAL GLYCOSYLA ASSOC LA ASSOC LA DOTTIE A1C NONEMERGE A0100 [facility] 3 [facility] ENTERPRIS MANAGEMEN ATION; ES T, TAXI NONEMERGE A0100 [facility] MANAGEMEN ATION; ES T, TAXI O2 CONC 1 E1390 [facility] 3 MEDICAL MEDICAL 85%/>02 [facility] CONC AT [facility] PRS FLW RATE NONEMERGE A0100 [facility] 3 [facility]PR[facility] MANAGEMEN ATION; ES T, TAXI NONEMERGE A0100 [facility] 3 [facility]TERPR[facility] MANAGEMEN ATION; ES T, TAXI NONEMERGE A0100 [facility] 3 [facility]TERPR[facility] MANAGEMEN ATION; ES T, TAXI HOME CARE S5108 [facility] 3 [facility] AREA AREA CARE AGENCY AGENCY CLIENT PER 15 MIN NONEMERGE A0100 [facility] 3 [facility]PR[facility] MANAGEMEN ATION; ES T, TAXI NONEMERGE A0100 [facility] 3 [facility]TERPR[facility] MANAGEMEN ATION; ES T, TAXI NONEMERGE A0100 [facility] 3 [facility]PR[facility] MANAGEMEN ATION; ES T, TAXI NONEMERGE A0100 [facility] 3 [facility] ENTERPRIS MANAGEMEN ATION; ES T, TAXI NONEMERGE A0100 [facility] 3 [facility] ENTERPRIS MANAGEMEN ATION; ES T, TAXI NONEMERGE A0100 [facility] 3 [facility] ENTERPR[facility] MANAGEMEN ATION; ES T, TAXI NONEMERGE A0100 [facility] 3 [facility]TERPRIS MANAGEMEN ATION; ES T, TAXI NONEMERGE A0100 [facility] 3 [facility] ENTERPRIS MANAGEMEN ATION; ES T, TAXI NONEMERGE A0100 [facility] 3 [facility]PR[facility] MANAGEMEN ATION; ES T, TAXI HOME CARE S5108 [facility] 3 [facility] AREA AREA CARE AGENCY AGENCY CLIENT PER 15 MIN NONEMERGE A0100 [facility] 3 [facility]TERPR[facility] MANAGEMEN ATION; ES T, TAXI NONEMERGE A0100 [facility] 3 [facility]TERPR[facility] MANAGEMEN ATION; ES T, TAXI NONEMERGE A0100 [facility] 3 [facility]TERPRIS MANAGEMEN ATION; ES T, TAXI NONEMERGE A0100 [facility] 3 [facility]PR[facility] MANAGEMEN ATION; ES T, TAXI O2 CONC 1 E1390 [facility] 3 MEDICAL MEDICAL 85%/>02 [facility] S[facility]ET CONC AT [facility] FLW RATE NONEMERGE A0100 [facility] 3 [facility] ENTERPRIS MANAGEMEN ATION; ES T, TAXI NONEMERGE A0100 [facility] 3 [facility]TERPRIS MANAGEMEN ATION; ES T, TAXI NONEMERGE A0100 [facility] 3 [facility]TERPRIS MANAGEMEN ATION; ES T, TAXI NONEMERGE A0100 [facility] 3 [facility]PR[facility] MANAGEMEN ATION; ES T, TAXI HOME CARE S5108 [facility] 3 [facility]NOTE [facility]] HOME D AREA D AREA CARE AGENCY AGENCY CLIENT PER 15 MIN NONEMERGE A0100 [facility] 3 [facility]PR[facility] MANAGEMEN ATION; ES T, TAXI NONEMERGE A0100 [facility] 3 [facility]PR[facility] MANAGEMEN ATION; ES T, TAXI NONEMERGE A0100 [facility] 3 [facility] MANAGEMEN ATION; ES T, TAXI DISPBL [id number] 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 LINER/JARED 3 TOUCH TOUCH ELD/GUARD HOME SHELTER CARE /PAD/UNDG OF OF RMNT INCONT EA NONEMERGE A0100 [facility] 3 [facility] MANAGEMEN ATION; ES T, TAXI NONEMERGE A0100 [facility] 3 [facility]TERPR[facility] MANAGEMEN ATION; ES T, TAXI NONEMERGE A0100 [facility] 3 [facility]TERPR[facility] MANAGEMEN ATION; ES T, TAXI NONEMERGE A0100 [facility] 3 [facility]TERPR[facility] MANAGEMEN ATION; ES T, TAXI NONEMERGE A0100 [facility] 3 [facility]TERPR[facility] MANAGEMEN ATION; ES T, TAXI NONEMERGE A0100 [facility] 3 [facility] ENTERPRIS MANAGEMEN ATION; ES T, TAXI NONEMERGE A0100 [facility] 3 [facility]TERPR[facility] MANAGEMEN ATION; ES T, TAXI NONEMERGE A0100 [facility] 3 [facility] ENTERPRIS MANAGEMEN ATION; ES T, TAXI NONEMERGE A0100 [facility] 3 [facility]TERPRIS MANAGEMEN ATION; ES T, TAXI NONEMERGE A0100 [facility] 3 [facility]TERPR[facility] MANAGEMEN ATION; ES T, TAXI NONEMERGE A0100 [facility] 3 [facility]TERPRIS MANAGEMEN ATION; ES T, TAXI NONEMERGE A0100 [facility] 3 [facility]PR[facility] MANAGEMEN ATION; ES T, TAXI O2 CONC 1 E1390 [facility] 3 MEDICAL MEDICAL 85%/>02 [facility] CONC AT [facility] FLW RATE NONEMERGE A0100 [facility] 3 [facility] MANAGEMEN ATION; ES T, TAXI NONEMERGE A0100 [facility] 3 [facility]PR[facility] MANAGEMEN ATION; ES T, TAXI NONEMERGE A0100 [facility] 3 [facility]PR[facility] MANAGEMEN ATION; ES T, TAXI HOME CARE S5108 [facility] TRAINING 3 [facility] D AREA CARE AGENCY AGENCY CLIENT PER 15 MIN NONEMERGE A0100 [facility] 3 [facility] MANAGEMEN ATION; ES T, TAXI MISC [place] T1999 [facility] ITEMS & 3 [facility] D AREA D AREA RETAIL AGENCY AGENCY PURCHASE NOC NONEMERGE A0100 [facility] 3 [facility] MANAGEMEN ATION; ES T, TAXI NONEMERGE A0100 [facility] 3 [facility]PR[facility] MANAGEMEN ATION; ES T, TAXI NONEMERGE A0100 [facility] 3 [facility] MANAGEMEN ATION; ES T, TAXI NONEMERGE A0100 [facility] MANAGEMEN ATION; ES T, TAXI INJECTION J1040 [facility] 3 MEDICINE JENNIFER METHYLPRE & DNISOLONE ORTHOPAED ACETATE I 80 MG RADIOLOGI 18907 [facility] C EXAM 3 MEDICINE JENNIFER BOTH & KNEES ORTHOPAED STANDING I ANTEROPOS T ARTHROCEN 37939 [facility] TESIS 3 MEDICINE JENNIFER ASPIR&/IN & J MAJOR ORTHOPAED JT/BURSA I W/O US NONEMERGE A0100 [facility] 3 [facility] MANAGEMEN ATION; ES T, TAXI NONEMERGE A0100 [facility] 3 [facility]PR[facility] MANAGEMEN ATION; ES T, TAXI NONEMERGE A0100 [facility] 3 [facility]PR[facility] MANAGEMEN ATION; ES T, TAXI NONEMERGE A0100 [facility] 3 [facility]PR[facility] MANAGEMEN ATION; ES T, TAXI NONEMERGE A0100 [facility] 3 [facility] MANAGEMEN ATION; ES T, TAXI HOME CARE S5108 [facility] 3 [facility]NOTE 3] HOME D AREA D AREA CARE AGENCY AGENCY CLIENT PER 15 MIN NONEMERGE A0100 [facility] 3 [facility] MANAGEMEN ATION; ES T, TAXI NONEMERGE A0100 [facility] 3 [facility] MANAGEMEN ATION; ES T, TAXI PROTHROMB 45709 LONG ALVES IN TIME 3 O MEDICAL O MEDICAL ASSOC LA ASSOC LA NONEMERGE A0100 [facility] 3 [facility]PR[facility] MANAGEMEN ATION; ES T, TAXI NONEMERGE A0100 [facility] 3 [facility] MANAGEMEN ATION; ES T, TAXI O2 CONC 1 E1390 [facility] 3 MEDICAL MEDICAL 85%/>02 [facility] S[facility] CONC AT [facility] PRSC FLW RATE NONEMERGE A0100 [facility] 3 [facility]PR[facility] MANAGEMEN ATION; ES T, TAXI NONEMERGE A0100 [facility] 3 [facility]TERPRIS MANAGEMEN ATION; ES T, TAXI NONEMERGE A0100 [facility] 3 [facility]TERPR[facility] MANAGEMEN ATION; ES T, TAXI NONEMERGE A0100 [facility] 3 [facility]PR[facility] MANAGEMEN ATION; ES T, TAXI HOME CARE S5108 [facility] 3 [facility] ARE[facility] D AREA CARE AGENCY AGENCY CLIENT PER 15 MIN NONEMERGE A0100 [facility] 3 [facility]TERPR[facility] MANAGEMEN ATION; ES T, TAXI NONEMERGE A0100 [facility] 3 [facility]TERPRIS MANAGEMEN ATION; ES T, TAXI NONEMERGE A0100 [facility] 3 [facility] ENTERPRIS MANAGEMEN ATION; ES T, TAXI NONEMERGE A0100 [facility] 3 [facility] ENTERPRIS MANAGEMEN ATION; ES T, TAXI NONEMERGE A0100 [facility] 3 [facility]TERPRIS MANAGEMEN ATION; ES T, TAXI NONEMERGE A0100 [facility] 3 [facility] ENTERPRIS MANAGEMEN ATION; ES T, TAXI NONEMERGE A0100 [facility] 3 [facility]TERPRIS MANAGEMEN ATION; ES T, TAXI NONEMERGE A0100 [facility] 3 [facility]TERPR[facility] MANAGEMEN ATION; ES T, TAXI NONEMERGE A0100 [facility] 3 [facility]TERPR[facility] MANAGEMEN ATION; ES T, TAXI HOME CARE S5108 [facility] 3 [facility] ARE[facility] D AREA CARE AGENCY AGENCY CLIENT PER 15 MIN DEBRIDEME 16336 JUSTINE HARRIS NT NAIL 3 D FOOT & DEN ANY ANKLE METHOD CENT 6/> NONEMERGE A0100 [facility] 3 [facility] MANAGEMEN ATION; ES T, TAXI NONEMERGE A0100 [facility] 3 [facility]PR[facility] MANAGEMEN ATION; ES T, TAXI NONEMERGE A0100 [facility] 3 [facility]PR[facility] MANAGEMEN ATION; [...] MEDICAL MEDICAL 85%/>02 S[facility] S[facility]ET CONC AT [facility] PRS FLW RATE NONEMERGE A0100 [facility] 3 [facility] MANAGEMEN ATION; ES T, TAXI NONEMERGE A0100 [facility] 3 [facility] MANAGEMEN ATION; ES T, TAXI LIPOPROTE 14635 [facility] IN BLOOD 3 [employer]IC [employer] NUMBERS & SUBCLASSE S COLLECTIO 33822 [facility] N VENOUS 3 O MEDICAL O MEDICAL BLOOD ASSOC LA ASSOC LA VENIPUNCT URE LIPID 21020 [facility] PANEL 3 [employer] NONEMERGE A0100 [facility] 3 [facility] MANAGEMEN ATION; ES T, TAXI NONEMERGE A0100 [facility] 3 [facility]PR[facility] MANAGEMEN ATION; ES T, TAXI HOME CARE S5108 [facility] TRAINING 3 [facility]NOTE 3] HOME D AREA D AREA CARE AGENCY AGENCY CLIENT PER 15 MIN NONEMERGE A0100 [facility] 3 [facility] MANAGEMEN ATION; ES T, TAXI NONEMERGE A0100 [facility] 3 [facility]TERPR[facility] MANAGEMEN ATION; ES T, TAXI NONEMERGE A0100 [facility] 3 [facility]TERPR[facility] MANAGEMEN ATION; ES T, TAXI NONEMERGE A0100 [facility] 3 [facility] ENTERPRIS MANAGEMEN ATION; ES T, TAXI NONEMERGE A0100 [facility] 3 [facility] ENTERPRIS MANAGEMEN ATION; ES T, TAXI HOME CARE S5108 [facility] 3 [facility] AREA D AREA CARE AGENCY AGENCY CLIENT PER 15 MIN NONEMERGE A0100 [facility] 3 [facility]PR[facility] MANAGEMEN ATION; ES T, TAXI NONEMERGE A0100 [facility] 3 [facility] ENTERPRIS MANAGEMEN ATION; ES T, TAXI NONEMERGE A0100 [facility] 3 [facility] ENTERPRIS MANAGEMEN ATION; ES T, TAXI NONEMERGE A0100 [facility] 3 [facility]TERPR[facility] MANAGEMEN ATION; ES T, TAXI O2 CONC 1 E1390 [facility] 3 MEDICAL MEDICAL 85%/>02 S[facility] S[facility]ET CONC AT [facility] FLW RATE NONEMERGE A0100 [facility] 3 [facility]TERPRIS MANAGEMEN ATION; ES T, TAXI NONEMERGE A0100 [facility] 3 [facility] ENTERPRIS MANAGEMEN ATION; ES T, TAXI HOME CARE S5108 [facility] 3 [facility] AREA D AREA CARE AGENCY AGENCY CLIENT PER 15 MIN NONEMERGE A0100 [facility] 3 [facility]TERPRIS MANAGEMEN ATION; ES T, TAXI NONEMERGE A0100 [facility] 3 [facility] ENTERPRIS MANAGEMEN ATION; ES T, TAXI NONEMERGE A0100 [facility] 3 [facility] ENTERPRIS MANAGEMEN ATION; ES T, TAXI NONEMERGE A0100 [facility] 3 [facility]PR[facility] MANAGEMEN ATION; ES T, TAXI MISC [place] T1999 [facility] ITEMS & 3 [facility] D AREA D AREA RETAIL AGENCY AGENCY PURCHASE NOC NONEMERGE A0100 [facility] 3 [facility]TERPR[facility] MANAGEMEN ATION; ES T, TAXI NONEMERGE A0100 [facility] 3 [facility]TERPRIS MANAGEMEN ATION; ES T, TAXI HOME CARE S5108 [facility] 3 [facility] D AREA D AREA CARE AGENCY AGENCY CLIENT PER 15 MIN NONEMERGE A0100 [facility] 3 [facility]TERPRIS MANAGEMEN ATION; ES T, TAXI NONEMERGE A0100 [facility] 3 [facility]TERPRIS MANAGEMEN ATION; ES T, TAXI NONEMERGE A0100 [facility] 3 [facility] MANAGEMEN ATION; ES T, TAXI PHRM Q0513 F & H F & H DISPENSIN 3 DRUG DRUG G FEE INHALATIO N RX; PER 30 DAYS ALBUTEROL J7613 F & H F & H INHAL 3 DRUG DRUG NON-CP PROD THRU DME U DOSE 1 MG NONEMERGE A0100 [facility] 3 [facility] MANAGEMEN ATION; ES T, TAXI COLONOSCO 16995 AYANNA URENA STAR PY FLX DX 3 W/COLLJ SPEC WHEN PFRMD COLLECTIO 64442 [facility] N VENOUS 3 HOSP INC HOSP INC BLOOD VENIPUNCT URE PROTHROMB 34586 [facility] BALJIT MO IN TIME 3 HOSP INC HOSP INC O2 CONC 1 E1390 [facility] 3 MEDICAL MEDICAL 85%/>02 [facility] CONC AT [employer] PRSC FLW RATE COLOREC G0121 [facility] BALJ[facility] CO CANCR 3 HOSP INC HOSP INC SCR; COLNSCPY NOT MEET HI RISK INJECTION J2250 [facility] BALJIT CO 3 HOSP INC HOSP INC MIDAZOLAM HCL PER 1 MG NONEMERGE A0100 [facility] 3 [facility] MANAGEMEN ATION; ES T, TAXI SBSQ 40566 [facility] 3 CARDIOLOG CARE/DAY Y 25 MINUTES RADIOLOGI 45391 IZABELA CORCORAN C 3 E MAYNOR EXAMINATI RADIOLOGY ON CHEST ASSOC SINGLE VIEW FRONTAL ECG 17316 PRIETO ALBERT ROUTINE 3 EMERGENCY I RENEE ECG SERVICES W/LEAST 12 LDS I&R ONLY MYOCARDIA 92531 [facility] L SPECT 3 CARDIOLOG MULTIPLE Y STUDIES INITIAL 06583 CARMITA LEIJA STAR OBSERVATI 3 MEDICAL ON GROUP CARE/DAY [place] 50 MINUTES INITIAL 40419 [facility] 3 CARDIOLOG CARE/DAY Y 50 MINUTES HOME CARE S5108 [facility] 3 [employer] AREA D AREA CARE AGENCY AGENCY CLIENT PER 15 MIN GROUND A0425 [facility] MILEAGE 3 EMS EMS PER STATUTE MILE AMB A0427 [facility] SERVICE 3 EMS EMS ALS EMERGENCY TRANSPORT LEVEL 1 NONEMERGE A0100 [facility] 2 [facility] MANAGEMEN ATION; ES T, TAXI NONEMERGE A0100 [facility] 2 [facility] ENTERPRIS MANAGEMEN ATION; ES T, TAXI NONEMERGE A0100 [facility] 2 [facility] ENTERPR[facility] MANAGEMEN ATION; ES T, TAXI NONEMERGE A0100 [facility] 2 [facility] ENTERPR[facility] MANAGEMEN ATION; ES T, TAXI NONEMERGE A0100 [facility] 2 [facility]TERPR[facility] MANAGEMEN ATION; ES T, TAXI NONEMERGE A0100 [facility] 2 [facility]TERPR[facility] MANAGEMEN ATION; ES T, TAXI HOME CARE S5108 [facility] TRAIN[facility] 2 [employer] AREA D AREA CARE AGENCY AGENCY CLIENT PER 15 MIN NONEMERGE A0100 [facility] 2 [facility]TERPR[facility] MANAGEMEN ATION; ES T, TAXI NONEMERGE A0100 [facility] 2 [facility]TERPRIS MANAGEMEN ATION; ES T, TAXI NONEMERGE A0100 [facility] 2 [facility]TERPR[facility] MANAGEMEN ATION; ES T, TAXI O2 CONC 1 E1390 [facility] 2 MEDICAL MEDICAL 85%/>02 [facility] CONC AT [facility] FLW RATE NONEMERGE A0100 [facility] 2 [facility]TERPR[facility] MANAGEMEN ATION; ES T, TAXI NONEMERGE A0100 [facility] 2 [facility] ENTERPRIS MANAGEMEN ATION; ES T, TAXI NONEMERGE A0100 [facility] 2 [facility]TERPRIS MANAGEMEN ATION; ES T, TAXI HOME CARE S5108 [facility] 2 [facility] AREA D AREA CARE AGENCY AGENCY CLIENT PER 15 MIN NONEMERGE A0100 [facility] 2 [facility]PR[facility] MANAGEMEN ATION; ES T, TAXI NONEMERGE A0100 [facility] 2 [facility] ENTERPRIS MANAGEMEN ATION; ES T, TAXI NONEMERGE A0100 [facility] 2 [facility] MANAGEMEN [place]; [place], [place] [address] [facility] HEAD/BRAI 2 HOSP INC HOSP INC N W/O CONTRAST MATERIAL NONEMERGE A0100 [facility] 2 [facility] MANAGEMEN ATION; ES T, TAXI COLLECTIO 12521 [facility] N VENOUS 2 O MEDICAL O MEDICAL BLOOD ASSOC LA ASSOC LA VENIPUNCT URE PROTHROMB 07738 [facility] O MEDICAL O MEDICAL ASSOC LA ASSOC LA BLOOD 49824 LONG ALVES COUNT 2 O MEDICAL O MEDICAL COMPLETE ASSOC LA ASSOC LA AUTO&AUTO DIFRNTL WBC COMPREHEN 24446 [facility] SIVE 2 O MEDICAL O MEDICAL METABOLIC ASSOC LA ASSOC LA PANEL NONEMERGE A0100 [facility] 2 [facility]PR[facility] MANAGEMEN ATION; ES T, TAXI NONEMERGE A0100 [facility] 2 [facility]SP[facility] ENTERPRIS MANAGEMEN ATION; ES T, TAXI NONEMERGE A0100 [facility] 2 [facility] ENTERPRIS MANAGEMEN ATION; ES T, TAXI HOME CARE S5108 [place] [address] [facility] CARE AGENCY AGENCY CLIENT PER 15 MIN NONEMERGE A0100 [facility] 2 [facility]TERPRIS MANAGEMEN ATION; ES T, TAXI NONEMERGE A0100 [facility] 2 [facility]SP[facility] ENTERPRIS MANAGEMEN ATION; ES T, TAXI NONEMERGE A0100 [facility] 2 [facility]SP[facility] ENTERPRIS MANAGEMEN ATION; ES T, TAXI NONEMERGE A0100 [facility] 2 [facility]SP[facility] ENTERPRIS MANAGEMEN ATION; ES T, TAXI NONEMERGE A0100 [facility] 2 [facility] ENTERPRIS MANAGEMEN ATION; ES T, TAXI O2 CONC 1 E1390 [facility] 2 MEDICAL MEDICAL 85%/>02 [facility] CONC AT [facility] FLW RATE NONEMERGE A0100 [facility] 2 [facility]SP[facility] ENTERPRIS MANAGEMEN ATION; ES T, TAXI NONEMERGE A0100 [facility] 2 [facility]SP[facility] ENTERPRIS MANAGEMEN ATION; ES T, TAXI NONEMERGE A0100 [facility] 2 [facility] ENTERPRIS MANAGEMEN ATION; ES T, TAXI PHRM Q0513 F & H F & H DISPENSIN 2 DRUG DRUG G FEE INHALATIO N RX; PER 30 DAYS ALBUTEROL J7613 F & H F & H INHAL 2 DRUG DRUG NON-CP PROD THRU DME U DOSE 1 MG NONEMERGE A0100 [facility] 2 [facility]PR[facility] MANAGEMEN ATION; ES T, TAXI NONEMERGE A0100 [facility] 2 [facility]SP[facility] ENTERPRIS MANAGEMEN ATION; ES T, TAXI HOME CARE S5108 [facility] 2 [facility] ARE[facility] D AREA CARE AGENCY AGENCY CLIENT PER 15 MIN NONEMERGE A0100 [facility] 2 [facility]SP[facility] ENTERPRIS MANAGEMEN ATION; ES T, TAXI NONEMERGE A0100 [facility] 2 [facility]SP[facility] ENTERPRIS MANAGEMEN ATION; ES T, T[place]I NONEMERGE A0100 [facility] 2 [facility] TRANSPORT ENTERPRIS MANAGEMEN ATION; ES T, TAXI NONEMERGE A0100 [facility] 2 [facility] TRANSPORT ENTERPRIS MANAGEMEN ATION; ES T, TAXI DEBRIDEME 11203 [facility] [place] NT NAIL 2 D FOOT & DEN ANY ANKLE METHOD CENT / NONEMERGE A0100 [facility] 2 [facility]SP[facility] ENTERPRIS MANAGEMEN ATION; ES T, TAXI NONEMERGE A0100 [facility] 2 [facility] TRANSPORT ENTERPRIS MANAGEMEN ATION; ES T, TAXI COLLECTIO 80112 [facility] N VENOUS 2 O MEDICAL O MEDICAL BLOOD ASSOC LA ASSOC LA VENIPUNCT URE PROTHROMB 76243 [facility] IN TIME 2 O MEDICAL O MEDICAL ASSOC LA ASSOC LA LIPID 34036 [facility]ES PANEL 2 O MEDICAL O MEDICAL ASSOC LA ASSOC LA COMPREHEN 64005 [facility]ES SIVE 2 O MEDICAL O MEDICAL METABOLIC ASSOC LA ASSOC LA PANEL NONEMERGE A0100 [facility] 2 [facility] TRANSP[facility] ENTERPRIS MANAGEMEN ATION; ES T, TAXI NONEMERGE A0100 [facility] 2 [facility] TRANSPORT ENTERPRIS MANAGEMEN ATION; ES T, TAXI NONEMERGE A0100 [facility] 2 [facility] TRANSPORT ENTERPRIS MANAGEMEN ATION; ES T, TAXI NONEMERGE A0100 [facility] 2 [facility] TRANSPORT ENTERPRIS MANAGEMEN ATION; ES T, T[place] HOME CARE [id number] [facility] 2 [facility] AREA D AREA CARE AGENCY AGENCY CLIENT PER 15 MIN NONEMERGE A0100 [facility] 2 TR[facility] TRANSPORT ENTERPRIS MANAGEMEN ATION; ES T, TAXI NONEMERGE A0100 [facility] 2 TRANS[facility] HEALTH TRANSPORT ENTERPRIS MANAGEMEN ATION; ES T, TAXI NONEMERGE A0100 [facility] 2 [facility] TRANSPORT ENTERPRIS MANAGEMEN ATION; ES T, TAXI O2 CONC 1 [id number] [facility] 2 MEDICAL MEDICAL 85%/>02 [facility] CONC AT [facility] FLW RATE PROTHROMB 51418 [facility] IN TIME 2 O MEDICAL O MEDICAL ASSOC LA ASSOC LA NONEMERGE A0100 [facility] 2 [facility] TRANSPORT ENTERPRIS MANAGEMEN ATION; ES T, T[place]I NONEMERGE A0100 [facility] 2 TRANS[facility] TRANSPORT ENTERPRIS MANAGEMEN ATION; ES T, TAXI NONEMERGE A0100 [facility] 2 TRANS[facility] HEALTH TRANSPORT ENTERPRIS MANAGEMEN ATION; ES T, [place] HOME CARE [id number] AREA D AREA CARE AGENCY AGENCY CLIENT PER 15 MIN PROTHROMB [id number] [facility] IN TIME 2 O MEDICAL O MEDICAL ASSOC LA ASSOC LA NONEMERGE A0100 [facility] 2 [facility] TRANSPORT ENTERPRIS MANAGEMEN ATION; ES T, TAXI NONEMERGE A0100 [facility] 2 [facility] TRANSPORT ENTERPRIS MANAGEMEN ATION; ES T, TAXI PHRM Q0513 [facility] & H F & H DISPENSIN 2 DRUG DRUG G FEE INHALATIO N RX; PER 30 DAYS ALBUTEROL [id number] F & H F & H INHAL 2 DRUG DRUG NON-CP PROD THRU DME U DOSE 1 MG NONEMERGE A0100 [facility] 2 [facility]SP[facility] ENTERPRIS MANAGEMEN ATION; ES T, TAXI NONEMERGE A0100 [facility] 2 [facility] TRANSPORT ENTERPRIS MANAGEMEN ATION; ES T, TAXI NONEMERGE A0100 [facility] 2 [facility] TRANSPORT ENTERPRIS MANAGEMEN ATION; ES T, TAXI NON-INVAS 14921 [facility]EV[facility] 2 D FOOT & DEN PHYSIOLOG ANKLE IC STUDY CENT EXTREMITY 3 LEVLS NONEMERGE A0100 [facility] 2 [facility]SP[facility] ENTERPRIS MANAGEMEN ATION; ES T, TAXI NONEMERGE A0100 [facility] 2 TRANS[facility] HE[facility] TRANSPORT ENTERPRIS MANAGEMEN ATION; ES T, [place] HOME CARE S5108 [facility] TRAINING 2 [facility] [facility]IENT PER 15 MIN NONEMERGE A0100 [facility] 2 [facility] TRANSPORT ENTERPRIS MANAGEMEN ATION; ES T, TAXI NONEMERGE A0100 [facility] TRANSPORT ENTERPRIS MANAGEMEN ATION; ES T, TAXI NONEMERGE A0100 [facility] TRANSPORT ENTERPRIS MANAGEMEN ATION; ES T, TAXI O2 CONC 1 E1390 [facility] [place] 2 MEDICAL MEDICAL 85%/>02 [facility] CONC AT [facility] FLW RATE NONEMERGE A0100 [facility] 2 [facility] HEALTH TRANSPORT ENTERPRIS MANAGEMEN ATION; ES T, TAXI NORMAL A4256 [facility] LIBERTY LOW AND 2 MEDICAL MEDICAL HIGH SUPPLY SUPPL[employer] R SOLUTION/ CHIPS LANCETS A4259 LIBERTY LIBERTY PER BOX 2 MEDICAL MEDICAL OF 100 SUPPLY SUPPLY [employer] BLD GLU A4253 [facility] LIBERTY TEST/REAG 2 MEDICAL MEDICAL T STRIPS SUPPLY SUPPLY HOME [employer] GLU MON-50 NONEMERGE A0100 [facility] 2 [facility] TRANSPORT ENTERPRIS MANAGEMEN ATION; ES T, TAXI NONEMERGE A0100 [facility] HEALTH TRANSPORT ENTERPRIS MANAGEMEN ATION; ES T, TAXI NONEMERGE A0100 [facility] 2 [facility] HEALTH TRANSPORT ENTERPRIS MANAGEMEN ATION; ES T, TAXI HOME CARE S5108 [facility] TRAINING 2 [facility] AGENCY AGENCY CLIENT PER 15 MIN NONEMERGE A0100 [facility] 2 TR[facility] HEALTH TRANSPORT ENTERPRIS MANAGEMEN ATION; ES T, TAXI NONEMERGE A0100 [facility] 2 TRANS[facility] HEALTH TRANSPORT ENTERPRIS MANAGEMEN ATION; ES T, TAXI NONEMERGE A0100 [facility] TRANS[facility] HEALTH TRANSPORT ENTERPRIS MANAGEMEN ATION; ES T, TAXI NONEMERGE A0100 [facility] 2 TRANSIT HEALTH TRANSPORT ENTERPRIS MANAGEMEN ATION; ES T, TAXI NONEMERGE A0100 [facility] TRANSPORT ENTERPRIS MANAGEMEN ATION; ES T, TAXI PROTHROMB 61459 LONG ALVES IN TIME 2 O MEDICAL O MEDICAL ASSOC LA ASSOC LA NONEMERGE A0100 [facility] TRANSPORT ENTERPRIS MANAGEMEN ATION; ES T, TAXI NONEMERGE A0100 [facility] 2 TRANS[facility] HEALTH TRANSPORT ENTERPRIS MANAGEMEN ATION; ES T, TAXI NONEMERGE A0100 [facility] 2 TRANSIT HEALTH TRANSPORT ENTERPRIS MANAGEMEN ATION; ES T, TAXI NONEMERGE A0100 [facility] 2 [facility] HEALTH TRANSPORT ENTERPRIS MANAGEMEN ATION; ES T, TAXI HOME CARE S[address] AREA D AREA CARE AGENCY AGENCY CLIENT PER 15 MIN PROTHROMB 12020 LONG ALVES IN TIME 2 O MEDICAL O MEDICAL ASSOC LA ASSOC LA NONEMERGE A0100 [facility] 2 TR[facility] HEALTH TRANSPORT ENTERPRIS MANAGEMEN ATION; ES T, TAXI NONEMERGE A0100 [facility] 2 TRANSIT HEALTH TRANSPORT ENTERPRIS MANAGEMEN ATION; ES T, TAXI NONEMERGE A0100 [facility] 2 TR[facility] HEALTH TRANSPORT ENTERPRIS MANAGEMEN ATION; ES T, TAXI O2 CONC 1 E1390 [facility] [place] 2 MEDICAL MEDICAL 85%/>02 [facility] LLC CONC AT [facility] FLW RATE NONEMERGE A0100 [facility] 2 [facility] HEALTH TRANSPORT ENTERPRIS MANAGEMEN ATION; ES T, TAXI NONEMERGE A0100 [facility] 2 TRANS[facility] HEALTH TRANSPORT ENTERPRIS MANAGEMEN ATION; ES T, TAXI NONEMERGE A0100 [facility] 2 TRANS[facility] HEALTH TRANSPORT ENTERPRIS MANAGEMEN ATION; ES T, TAXI HOME CARE S[address] AREA CARE AGENCY AGENCY CLIENT PER 15 MIN ECG 26997 CHIDI CARDENASMAY ROUTINE 2 CARDIOLOG CARDIOLOG ECG Y Y W/LEAST 12 LDS W/I&R NONEMERGE A0100 [facility] 2 [facility] TRANSPORT ENTERPRIS MANAGEMEN ATION; ES T, TAXI NONEMERGE A0100 [facility] 2 TR[facility] HEALTH TRANSPORT ENTERPRIS MANAGEMEN ATION; ES T, TAXI NONEMERGE A0100 [facility] 2 TRANS[facility] HEALTH TRANSPORT ENTERPRIS MANAGEMEN ATION; ES T, TAXI NONEMERGE A0100 [facility] 2 [facility] HEALTH TRANSPORT ENTERPRIS MANAGEMEN ATION; ES T, TAXI NONEMERGE A0100 [facility] 2 [facility] TRANSPORT ENTERPRIS MANAGEMEN ATION; ES T, TAXI PROTHROMB 92064 [facility] IN TIME 2 O MEDICAL O MEDICAL ASSOC LA ASSOC LA NONEMERGE A0100 [facility] 2 [facility] HEALTH TRANSPORT ENTERPRIS MANAGEMEN ATION; ES T, TAXI NONEMERGE A0100 [facility] 2 TRANSIT HEALTH TRANSPORT ENTERPRIS MANAGEMEN ATION; ES T, TAXI ECHO 87773 CHIDI KIMBALLA TTHRC R-T 2 CARDIOLOG 2D Y W/WOM-MOD E COMPL SPEC&COLR D HOME CARE S5108 [facility] 2 [facility] AREA CARE AGENCY AGENCY CLIENT PER 15 MIN NONEMERGE A0100 [facility] 2 TR[facility] HEALTH TRANSPORT ENTERPRIS MANAGEMEN ATION; ES T, TAXI NONEMERGE A0100 [facility] 2 TRANSIT HEALTH TRANSPORT ENTERPRIS MANAGEMEN ATION; ES T, TAXI NONEMERGE A0100 [facility] 2 TRANS[facility] HEALTH TRANSPORT ENTERPRIS MANAGEMEN ATION; ES T, TAXI NONEMERGE A0100 [facility] 2 [facility] HEALTH TRANSPORT ENTERPRIS MANAGEMEN ATION; ES T, TAXI O2 CONC 1 E1390 [facility] [place] 2 MEDICAL MEDICAL 85%/>02 [facility] CONC AT [facility] FLW RATE NONEMERGE A0100 [facility] 2 [facility]ALTH TRANSPORT ENTERPRIS MANAGEMEN ATION; ES T, TAXI NONEMERGE A0100 [facility] 2 TRANSIT HEALTH TRANSPORT ENTERPRIS MANAGEMEN ATION; ES T, TAXI HOME CARE S5108 [facility] TRAINING 2 [facility] HOME D AREA D AREA CARE AGENCY AGENCY CLIENT PER 15 MIN MYOCARDIA 14533 ARGENISET FERNANDEZ JAY JAY L SPECT 2 CARDIOLOG MULTIPLE Y STUDIES INJECTION J1245 CHIDI FERNNADEZ JAY JAY 2 CARDIOLOG DIPYRIDAM Y OLE PER 10 MG TECHNETIU A9500 ARGENISSHERIDAN FERNANDEZ JAY JAY M TC-99M 2 CARDIOLOG SESTAMIBI Y DX PER STUDY DOSE NONEMERGE A0100 [facility] 2 [facility] TRANSPORT ENTERPRIS MANAGEMEN ATION; ES T, TAXI ECG 80633 CHIDI SLATERH JAY JAY ROUTINE 2 CARDIOLOG ECG Y W/LEAST 12 LDS W/I&R INJECTION J1100 ESSIE CALL 2 DEXAMETHO SONE SODIUM PHOSPHATE 1 MG ARTHROCEN 69204 ESSIE CALL TESIS 2 ASPIR&/IN J MAJOR JT/BURSA W/O US NONEMERGE A0100 [facility] 2 [facility] TRANSPORT ENTERPRIS MANAGEMEN ATION; ES T, TAXI NONEMERGE A0100 [facility] 2 [facility]ALTH TRANSPORT ENTERPRIS MANAGEMEN ATION; ES T, TAXI NONEMERGE A0100 [facility] 2 [facility] TRANSPORT ENTERPRIS MANAGEMEN ATION; ES T, T[place] 9[address]46 [facility] SHAB[facility]IR JT LOWER 2 RABIA EXTREM RADIOLOGY W/O ASSOC CONTRAST MATRL NONEMERGE A0100 [facility] 2 [facility] TRANSPORT ENTERPRIS MANAGEMEN ATION; ES T, TAXI NONEMERGE A0100 [facility] 2 TRANSIT HEALTH TRANSPORT ENTERPRIS MANAGEMEN ATION; ES T, TAXI NONEMERGE A0100 [facility] 2 TRANSIT HEALTH TRANSPORT ENTERPRIS MANAGEMEN ATION; ES T, TAXI PROTHROMB 93406 LONG ALVES IN TIME 2 O MEDICAL O MEDICAL ASSOC LA ASSOC LA HOME CARE S5108 [facility] TRAINING 2 [facility] D AREA D AREA CARE AGENCY AGENCY CLIENT PER 15 MIN NONEMERGE A0100 [facility] 2 TRANS[facility] HEALTH TRANSPORT ENTERPRIS MANAGEMEN ATION; ES T, TAXI NONEMERGE A0100 [facility] 2 TRANSIT HEALTH TRANSPORT ENTERPRIS MANAGEMEN ATION; ES T, TAXI NONEMERGE A0100 [facility] 2 TRANSIT HEALTH TRANSPORT ENTERPRIS MANAGEMEN ATION; ES T, TAXI PROTHROMB 15027 LONG ALVES IN TIME 2 O MEDICAL O MEDICAL ASSOC LA ASSOC LA DISPBL T4535 PERSONAL PERSONAL LINER/JARED 2 TOUCH TOUCH ELD/GUARD HOME SHELTER CARE /PAD/UNDG OF OF RMNT INCONT EA O2 CONC 1 E1390 [facility] [place] 2 MEDICAL MEDICAL 85%/>02 [facility] CONC AT [facility] [place] [address] [facility] TROPONIN 2 [place] QUANTITAT D D [facility] CREATINE 08079 [facility] KINASE 2 [place] TOTAL D D [facility] CREATINE 00108 [facility] KINASE MB 2 [place] FRACTION D D ONLY [facility] RADIOLOGI 00859 [facility] C 2 [place] EXAMINATI D D ON CHEST [facility] SINGLE HOS HOS VIEW FRONTAL COLLECTIO 13945 [facility] N VENOUS 2 [place] BLOOD D D VENIPUNCT [facility] URE HOS HOS PROTHROMB 79974 [facility] IN TIME 2 [place] D D [facility] BLOOD 53915 [facility] WILLAMS COUNT 2 [place] COMPLETE D D AUTO&AUTO REG[facility]AL [facility] DIFRNTL HOS HOS WBC GROUND A0425 [facility] MILEAGE 2 EMS EMS PER STATUTE MILE ECG 99786 [facility] ROUTINE 2 [place] ECG D D W/LEAST REGIONAL REGIONAL 12 LDS HOS HOS TRCG ONLY W/O I&R THER 06145 [facility] PROPH/DX 2 [place] NJX IV D D PUSH REGIONAL REGIONAL SINGLE/1S HOS HOS T SBST/DRUG ECG 81025 PRIETO KELLEY ROUTINE 2 EMERGENCY KOL ECG SERVICES W/LEAST 12 LDS I&R ONLY COMPREHEN 26266 [facility] SIVE 2 [place] METABOLIC D D PANEL [facility] AMB A0427 [facility] SERVICE 2 EMS EMS ALS EMERGENCY TRANSPORT LEVEL 1 NONEMERGE A0100 [facility] 2 [facility] TRANSPORT ENTERPRIS MANAGEMEN ATION; ES T, TAXI PROTHROMB 81362 [facility] IN TIME 2 O MEDICAL O MEDICAL ASSOC LA ASSOC LA HOME CARE S5108 [facility] TRAINING 2 [place] HOME D AREA D AREA CARE AGENCY AGENCY CLIENT PER 15 MIN HOME CARE S5108 [facility] TRAINING 2 [place] HOME D AREA D AREA CARE AGENCY AGENCY CLIENT PER 15 MIN NONEMERGE A0100 [facility] 2 [facility]ALTH TRANSPORT ENTERPRIS MANAGEMEN ATION; ES T, TAXI NONEMERGE A0100 [facility] 2 [facility]ANS[facility]ALTH TRANSPORT ENTERPRIS MANAGEMEN ATION; ES T, TAXI NEBULIZER E0570 [facility] ERAZO WITH 2 MEDICAL MEDICAL COMPRESSO EQUIPMENT EQUIPMENT R GROUND A0425 [facility] MILEAGE 2 EMS EMS PER STATUTE MILE NONEMERG A0120 RURAL [facility]URAL TRNSPRT: 2 TRANSIT TRANSIT MINI-BUS ENTERPRIS ENTERPRIS MTN ES ES AREA/OTH SYS AMBULANCE A0429 [facility] SERVICE 2 EMS EMS BLS EMERGENCY TRANSPORT STRAPPING 24158 PRIETO KIMBLE KNEE 2 EMERGENCY GRE SERVICES RADIOLOGI 18142 [facility] C EXAM 2 [place] KNEE D D COMPLETE REGIONAL REGIONAL 4/MORE HOS HOS VIEWS RADEX 19243 [facility] FOREARM 2 2 [place] VIEWS D D REGIONAL REGIONAL HOS HOS THROMBOPL 31202 [facility] ASTIN 2 HOSP INC HOSP INC TIME PARTIAL PLASMA/WH OLE BLOOD RADIOLOGI 68350 [facility] C 2 HOSP INC HOSP INC EXAMINATI ON CHEST SINGLE VIEW FRONTAL CREATINE 22384 [facility] KINASE MB 2 HOSP INC HOSP INC FRACTION ONLY CREATINE 50024 [facility] KINASE 2 HOSP INC HOSP INC TOTAL NATRIURET 75595 [facility] IC 2 [place] [address] [facility] TROPONIN 2 HOSP INC HOSP INC QUANTITAT TIKA BLOOD 43159 [facility] COUNT 2 HOSP INC HOSP INC COMPLETE AUTO&AUTO DIFRNTL WBC PROTHROMB 05947 [facility] IN TIME 2 HOSP INC HOSP INC COLLECTIO 62521 [facility] N VENOUS 2 HOSP INC HOSP INC BLOOD VENIPUNCT URE GROUND A0425 [facility] MILEAGE 2 EMS EMS PER STATUTE MILE COMPREHEN 24297 [facility] SIVE 2 HOSP INC HOSP INC METABOLIC PANEL ECG 70480 EMERGENCY SHANKS ROUTINE 2 COVERAGE LYN ECG W/LEAST CORPORATI 12 LDS I&R ONLY ECG 93083 [facility] ROUTINE 2 HOSP INC HOSP INC ECG W/LEAST 12 LDS TRCG ONLY W/O I&R NONINVASI 35186 [facility] VE 2 HOSP INC HOSP INC EAR/PULSE OXIMETRY SINGLE DETER AMB A0427 [facility] SERVICE 2 EMS EMS ALS EMERGENCY TRANSPORT LEVEL 1 HOME CARE S5108 [facility] TRAINING 2 JUSTINE FLETCHER HANA D AREA D AREA CARE AGENCY AGENCY CLIENT PER 15 MIN SBSQ 99006 [facility] 2 MEDICAL CARE/DAY GROUP 15 [facility] MINUTES SBSQ [address]15 [facility] 2 MEDICAL SCO CARE/DAY GROUP 15 [facility] MINUTES SBSQ 80757 [facility] 2 MEDICAL [facility]ARE/DAY GROUP 25 [facility] SBSQ 30761 [facility] 2 MEDICAL CARE/DAY GROUP 25 [facility] MINUTES ARTHROCEN 81776 MICHELLE MARTINEZ TESIS 2 JR [facility] ASPIR&/IN J MAJOR JT/BURSA W/O US RADIOLOGI 18990 IZABELA VEGA C 2 D. EXAMINATI RADIOLOGY ON KNEE ASSOC 1/2 VIEWS RADIOLOGI 57052 MICHELLE MARTINEZ C EXAM 2 JR [facility] KNEE COMPLETE 4/MORE VIEWS O2 CONC 1 E1390 [facility] [place] 2 MEDICAL MEDICAL 85%/>02 LLC LLC CONC AT [facility] FLW RATE [facility]BSQ [address]16 [facility] 2 MEDICAL SCO CARE/DAY GROUP 25 [facility] MINUTES RADIOLOGI 56636 IZABELA Tyler EXAM 2 KNEE RADIOLOGY COMPLETE ASSOC 4/MORE VIEWS INITIAL 86061 [facility] 2 MEDICAL EDW CARE/DAY GROUP [facility] RADIOLOGI 30726 LONG ALFARO C 2 O MEDICAL JUAN EXAMINATI ON KNEE ASSOCIATE 1/2 VIEWS PROTHROMB 88113 LONG ALVES IN TIME 2 O MEDICAL O MEDICAL ASSOC LA ASSOC LA NONEMERGE A0100 [facility] 2 [facility] TRANSPORT ENTERPRIS MANAGEMEN ATION; ES T, TAXI NONEMERGE A0100 [facility] 2 TRANS[facility] HEALTH TRANSPORT ENTERPRIS MANAGEMEN ATION; ES T, TAXI PROTHROMB 40230 [facility] LONG IN TIME 2 O MEDICAL O MEDICAL ASSOC LA ASSOC LA HOME CARE S5108 [facility] TRAINING 2 JUSTINE FLETCHER HOME D AREA D AREA CARE AGENCY AGENCY CLIENT PER 15 MIN NONEMERGE A0100 [facility] 2 [facility] TRANSPORT ENTERPRIS MANAGEMEN ATION; ES T, TAXI SKIN TEST 27208 [facility] S[facility] 2 CONUNTY CONUNTY [facility] SIS DEPARTM DEPARTM INTRADERM AL NONEMERGE A0100 [facility] 2 [facility] HEALTH TRANSPORT ENTERPRIS MANAGEMEN ATION; ES T, TAXI NONEMERGE A0100 [facility] TRANSIT HEALTH TRANSPORT ENTERPRIS MANAGEMEN ATION; ES T, TAXI NEBULIZER E0570 [facility] ERAZO WITH 2 MEDICAL MEDICAL COMPRESSO EQUIPMENT EQUIPMENT R NONEMERGE A0100 [facility] 2 TRANSIT HEALTH TRANSPORT ENTERPRIS MANAGEMEN ATION; ES T, TAXI LIPID 73113 [facility] PANEL 2 O MEDICAL O MEDICAL ASSOC LA ASSOC LA COMPREHEN 77222 [facility] 2 O MEDICAL O MEDICAL METABOLIC ASSOC LA ASSOC LA PANEL PROTHROMB 80972 LONG ALVES IN TIME 2 O MEDICAL O MEDICAL ASSOC LA ASSOC LA BLOOD 56865 [facility] COUNT 2 O MEDICAL O MEDICAL COMPLETE ASSOC LA ASSOC LA AUTO&AUTO DIFRNTL WBC COLLECTIO 98490 [facility] N VENOUS 2 O MEDICAL O MEDICAL BLOOD ASSOC LA ASSOC LA VENIPUNCT URE HEMOGLOBI 24199 [facility] N 2 O MEDICAL O MEDICAL GLYCOSYLA ASSOC [place] [address] [facility] TH[facility]RO[facility] 2 O MEDICAL O MEDICAL STIMULATI ASSOC LA ASSOC LA NG HORMONE TSH NONEMERGE A0100 [facility] 2 [facility] TRANSPORT ENTERPRIS MANAGEMEN ATION; ES T, TAXI NONEMERGE A0100 [facility] 2 TRANSIT HEALTH TRANSPORT ENTERPRIS MANAGEMEN ATION; ES T, TAXI NONEMERGE A0100 [facility] 2 TRANSIT HEALTH TRANSPORT ENTERPRIS MANAGEMEN ATION; ES T, TAXI NONEMERGE A0100 [facility] 2 TRANSIT HEALTH TRANSPORT ENTERPRIS MANAGEMEN ATION; ES T, TAXI HOME CARE S5108 [facility] TRAINING 2 [facility] D AREA D AREA CARE AGENCY AGENCY CLIENT PER 15 MIN PROTHROMB 34068 [facility] IN TIME 2 O MEDICAL O MEDICAL ASSOC LA ASSOC LA NONEMERGE A0100 [facility] 2 TRANSIT HEALTH TRANSPORT ENTERPRIS MANAGEMEN ATION; ES T, TAXI NONEMERGE A0100 [facility] 2 TRANSIT HEALTH TRANSPORT ENTERPRIS MANAGEMEN ATION; ES T, TAXI O2 CONC 1 E1390 [facility] [place] 2 MEDICAL MEDICAL 85%/>02 [facility] CONC AT [facility] FLW RATE PROTHROMB 72075 [facility] IN TIME 2 O MEDICAL O MEDICAL ASSOC LA ASSOC LA NONEMERGE A0100 [facility] 2 TRANSIT HEALTH TRANSPORT ENTERPRIS MANAGEMEN ATION; ES T, TAXI NONEMERGE A0100 [facility] 2 TRANSIT HEALTH TRANSPORT ENTERPRIS MANAGEMEN ATION; ES T, TAXI HOME CARE S5108 [facility] 2 [facility] D AREA D AREA CARE AGENCY AGENCY CLIENT PER 15 MIN NONEMERGE A0100 [facility] 2 TRANS[facility] HEALTH TRANSPORT ENTERPRIS MANAGEMEN ATION; ES T, TAXI NONEMERGE A0100 [facility] 2 TRANSIT HEALTH TRANSPORT ENTERPRIS MANAGEMEN ATION; ES T, TAXI NONEMERGE A0100 [facility] 2 TRANSIT HEALTH TRANSPORT ENTERPRIS MANAGEMEN ATION; ES T, TAXI NEBULIZER E0570 [facility] WITH 2 MEDICAL MEDICAL COMPRESSO EQUIPMENT [facility]QU[facility]MENT [facility] 88[address] [place] [facility] DISCHARGE 2 MEDICAL [facility] MANAGEMEN [place] T 30 MIN/< SBSQ 14813 [facility] 2 CARDIOLOG CARE/DAY Y 25 MINUTES DUPLEX 12572 IZABELA WOOLDRIDG SCAN 2 E [facility] EXTRACRAN RADIOLOGY IAL ART ASSOC COMPL BI STUDY MRI BRAIN 87982 IZABELA SHABBIR BRAIN 2 RABIA STEM W/O RADIOLOGY CONTRAST ASSOC MATERIAL INITIAL 71677 [facility] 2 MEDICAL EDW CARE/DAY GROUP 50 [place] MINUTES MYOCARDIA 61762 [facility] L SPECT 2 CARDIOLOG MULTIPLE Y STUDIES GROUND A0425 [facility] MILEAGE 2 EMS EMS PER STATUTE MILE ECHO 85780 [facility] TTHRC R-T 2 CARDIOLOG 2D Y W/WOM-MOD E COMPL SPEC&COLR D INITIAL 67063 [facility] 2 CARDIOLOG CARE/DAY Y 70 MINUTES AMB A0427 [facility] SERVICE 2 EMS EMS ALS EMERGENCY TRANSPORT LEVEL 1 COMPREHEN 32087 [facility] SIVE 2 HOSP INC HOSP INC METABOLIC PANEL ECG 03394 EMERG[facility] SHANKS ROUTINE 2 COVERAGE LYN ECG W/LEAST CORPORATI 12 LDS I&R ONLY NONINVASI 56859 [facility] VE 2 HOSP INC HOSP INC EAR/PULSE OXIMETRY SINGLE DETER ECG 84196 [facility] ROUTINE 2 HOSP INC HOSP INC ECG W/LEAST 12 LDS TRCG ONLY W/O I&R THERAPEUT 78368 [facility] IC 2 HOSP INC HOSP INC INJECTION IV PUSH EACH NEW DRUG THER 94354 [facility] PROPH/DX 2 HOSP INC HOSP INC NJX IV PUSH SINGLE/1S T SBST/DRUG INJECTION J2270 [facility] MORPHINE 2 HOSP INC HOSP INC SULFATE UP TO 10 MG RADIOLOGI 21043 [facility] C 2 HOSP INC HOSP INC EXAMINATI ON CHEST SINGLE VIEW FRONTAL THROMBOPL 40541 [facility] ASTIN 2 HOSP INC HOSP INC TIME PARTIAL PLASMA/[place] [address] [facility] TROPONIN 2 HOSP INC HOSP INC QUANTITAT TIKA CREATINE 95430 [facility] KINASE 2 HOSP INC HOSP INC TOTAL CREATINE 76898 [facility] KINASE MB 2 HOSP INC HOSP INC FRACTION ONLY COLLECTIO 91271 [facility] N VENOUS 2 HOSP INC HOSP INC BLOOD VENIPUNCT URE BLOOD 59851 [facility] COUNT 2 HOSP INC HOSP INC COMPLETE AUTO&AUTO DIFRNTL WBC PROTHROMB 50938 [facility] IN TIME 2 HOSP INC HOSP INC NONEMERGE A0100 [facility] 2 TRANSIT HEALTH TRANSPORT ENTERPRIS MANAGEMEN ATION; ES T, TAXI NONEMERGE A0100 [facility] TRANSIT HEALTH TRANSPORT ENTERPRIS MANAGEMEN ATION; ES T, TAXI NONEMERGE A0100 [facility] 2 TRANSIT HEALTH TRANSPORT ENTERPRIS MANAGEMEN ATION; ES T, TAXI HOME CARE S5108 [facility] 2 [facility] D AREA D AREA CARE AGENCY AGENCY CLIENT PER 15 MIN NONEMERGE A0100 [facility] 2 TRANSIT HEALTH TRANSPORT ENTERPRIS MANAGEMEN ATION; ES T, TAXI NONEMERGE A0100 [facility] TRANSIT HEALTH TRANSPORT ENTERPRIS MANAGEMEN ATION; ES T, T[facility]I NONEMERGE A0100 [facility] 2 TRANSIT HEALTH TRANSPORT ENTERPRIS MANAGEMEN ATION; ES T, T[facility]I PROTHROMB [id number] [facility] IN TIME 2 O MEDICAL O MEDICAL ASSOC LA ASSOC LA O2 CONC 1 E1390 [facility] MEDICAL MEDICAL 85%/>[facility] [employer] [facility] CONC AT [facility] FLW RATE NONEMERGE A0100 [facility] 2 TRANSIT HEALTH TRANSPORT ENTERPRIS MANAGEMEN ATION; ES T, TAXI NONEMERGE A0100 [facility] 2 TRANSIT HEALTH TRANSPORT ENTERPRIS MANAGEMEN ATION; ES T, TAXI NONEMERGE A0100 [facility] 2 TRANSIT HEALTH TRANSPORT ENTERPRIS MANAGEMEN ATION; ES T, T[facility]I PROTHROMB 12726 [facility] IN TIME 2 O MEDICAL O MEDICAL ASSOC LA ASSOC LA NONEMERGE A0100 [facility] 2 TRANSIT HEALTH TRANSPORT ENTERPRIS MANAGEMEN ATION; ES T, TAXI NONEMERGE A0100 [facility] 2 TRANSIT HEALTH TRANSPORT ENTERPRIS MANAGEMEN ATION; ES T, [facility] S5108 [facility] TRAINING 2 [facility] D AREA D AREA CARE AGENCY AGENCY CLIENT PER 15 MIN NONEMERGE A0100 [facility] 2 TRANSIT TRANSIT TRANSPORT ENTERPRIS ENTERPRIS ATION; ES ES TAXI NEBULIZER E0570 [facility] WITH 2 MEDICAL MEDICAL COMPRESSO EQUIPMENT EQUIPMENT R PROTHROMB 12891 LONG ALVES IN TIME 2 O MEDICAL O MEDICAL ASSOC LA ASSOC LA NONEMERGE A0100 [facility] TRANSIT TRANSIT TRANSPORT ENTERPRIS ENTERPRIS ATION; ES ES TAXI NONEMERGE A0100 [facility] 2 TRANSIT TRANSIT TRANSPORT ENTERPRIS ENTERPRIS ATION; ES ES TAXI NONEMERGE A0100 [facility] 2 TRANSIT TRANSIT TRANSPORT ENTERPRIS ENTERPRIS ATION; ES ES TAXI NONEMERGE A0100 [facility]URAL [facility] 2 TRANSIT TRANSIT TRANSPORT ENTERPRIS ENTERPRIS ATION; ES ES TAXI SPRING-PO A4258 [facility] 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 SUPPLY FOR LANCET EACH BLD GLU A4253 [facility] TEST/REAG 2 MEDICAL MEDICAL T STRIPS SUPPLY SUPPLY HOME BLD GLU MON-50 LANCETS A4259 [facility] PER BOX 2 MEDICAL MEDICAL OF 100 SUPPLY SUPPLY NONEMERGE A0100 [facility] 2 TRANSIT TRANSIT TRANSPORT ENTERPRIS ENTERPRIS ATION; ES ES TAXI INCONTINE T4541 PERSONAL PERSONAL NCE 2 TOUCH TOUCH PRODUCT HOME SHELTER CARE DISPOSABL OF OF E UNDPAD LARGE EA DISPBL T4535 PERSONAL PERSONAL LINER/JARED 2 TOUCH TOUCH ELD/GUARD HOME SHELTER CARE /PAD/UNDG OF OF RMNT INCONT EA HOME CARE S5108 [facility] TRAINING 2 [facility][NOTE 3] HOME D AREA D AREA CARE AGENCY AGENCY CLIENT PER 15 MIN NONEMERGE A0100 [facility] 2 TRANSIT TRANSIT TRANSPORT ENTERPRIS ENTERPRIS ATION; ES ES TAXI NONEMERGE A0100 [facility] 2 TRANSIT TRANSIT TRANSPORT ENTERPRIS ENTERPRIS ATION; ES ES TAXI NONEMERGE A0100 [facility] 2 TRANSIT TRANSIT TRANSPORT ENTERPRIS ENTERPRIS ATION; ES ES TAXI O2 CONC 1 E1390 [facility] MEDICAL MEDICAL 85%/>[facility] [employer] CONC AT [facility] FLW RATE NONEMERGE A0100 [facility] 2 TRANSIT TRANSIT TRANSPORT ENTERPRIS ENTERPRIS ATION; ES ES TAXI NONEMERGE A0100 [facility] 2 TRANSIT TRANSIT TRANSPORT ENTERPRIS ENTERPRIS ATION; ES ES TAXI NONEMERGE A0100 [facility] 2 TRANSIT TRANSIT TRANSPORT ENTERPRIS ENTERPRIS ATION; ES ES [facility] S5108 [facility] TRAINING 2 [facility] HOME D AREA D AREA CARE AGENCY AGENCY CLIENT PER 15 MIN NONEMERGE A0100 [facility] 2 TRANSIT TRANSIT TRANSPORT ENTERPRIS ENTERPRIS ATION; ES ES TAXI NONEMERGE A0100 [facility] OKY 2 TRANSIT TRANSIT TRANSPORT ENTERPRIS ENTERPRIS ATION; ES ES TAXI LIPID 99831 [facility] PANEL 2 O MEDICAL O MEDICAL [facility]OC [facility] ASSOC LA COMPREHEN 60128 [facility] SIVE 2 O MEDICAL O MEDICAL METABOLIC ASSOC LA ASSOC LA PANEL HEMOGLOBI 49818 [facility] N 2 O MEDICAL O MEDICAL GLYCOSYLA ASSOC LA ASSOC LA DOTTIE A1C CREATININ 84525 LAB GALA LAB GALA E OTHER 2 [employer] 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 [address] [facility] THYROID 2 O MEDICAL O MEDICAL STIMULATI ASSOC LA ASSOC LA NG HORMONE TSH ALBUMIN 47519 LAB GALA LAB GALA URINE 2 AMERIC AMERIC MICROALBU HOLDING HOLDING MIN QUANTIATI VE COLLECTIO 46669 [facility]AY N VENOUS 2 O MEDICAL O MEDICAL BLOOD ASSOC LA ASSOC LA VENIPUNCT URE PROTHROMB 25114 [facility]ES IN TIME 2 O MEDICAL O MEDICAL ASSOC LA ASSOC LA BLOOD 10038 [facility] COUNT 2 O MEDICAL O MEDICAL COMPLETE ASSOC LA ASSOC LA AUTO&AUTO DIFRNTL WBC NONEMERGE A0100 [facility] OKY 2 TRANSIT TRANSIT TRANSPORT ENTERPRIS ENTERPRIS ATION; ES ES TAXI NONEMERGE A0100 [facility] OKY 2 TRANSIT TRANSIT TRANSPORT ENTERPRIS ENTERPRIS ATION; ES ES TAXI NONEMERGE A0100 [facility] OKY 2 TRANSIT TRANSIT TRANSPORT ENTERPRIS ENTERPRIS ATION; ES ES TAXI NONEMERGE A0100 [facility] OKY 2 TRANSIT TRANSIT TRANSPORT ENTERPRIS ENTERPRIS ATION; ES ES TAXI NONEMERGE A0100 [facility] OKY 2 TRANSIT TRANSIT TRANSPORT ENTERPRIS ENTERPRIS ATION; ES ES TAXI NONEMERGE A0100 [facility] OKY 2 TRANSIT TRANSIT TRANSPORT ENTERPRIS ENTERPRIS ATION; ES ES TAXI HOME CARE S5108 [facility] 2 [facility] HOME D AREA D AREA CARE AGENCY AGENCY CLIENT PER 15 MIN NONEMERGE A0100 [facility] OKY 2 TRANSIT TRANSIT TRANSPORT ENTERPRIS ENTERPRIS ATION; ES ES TAXI NONEMERGE A0100 [facility] OKY 2 TRANSIT TRANSIT TRANSPORT ENTERPRIS ENTERPRIS ATION; ES ES TAXI O2 CONC 1 E1390 [facility] MEDICAL MEDICAL 85%/>02 [facility] AT [facility] FLW RATE NONEMERGE A0100 [facility] OKY 2 TRANSIT TRANSIT TRANSPORT ENTERPRIS ENTERPRIS ATION; ES ES TAXI NONEMERGE A0100 [facility] OKY 2 TRANSIT TRANSIT TRANSPORT ENTERPRIS ENTERPRIS ATION; ES ES TAXI NONEMERGE A0100 RURAL RURAL [facility] 2 TRANSIT TRANSIT TRANSPORT ENTERPRIS ENTERPRIS ATION; ES ES TAXI HOME CARE S5108 [facility] 2 [facility] D AREA D AREA CARE AGENCY AGENCY CLIENT PER 15 MIN NONEMERGE A0100 [facility]GL[facility] OKY 1 TRANSIT HEALTH TRANSPORT ENTERPRIS MANAGEMEN ATION; ES T TAXI NONEMERGE A0100 [facility] TR[facility] HEALTH TRANSPORT ENTERPRIS MANAGEMEN ATION; ES T TAXI NONEMERGE A0100 [facility] 1 [facility] HEALTH TRANSPORT ENTERPRIS MANAGEMEN ATION; ES T TAXI NONEMERGE A0100 [facility] 1 [facility] HEALTH TRANSPORT ENTERPRIS MANAGEMEN ATION; ES T TAXI NEBULIZER E0570 [facility] ERA[facility] WITH 1 MEDICAL MEDICAL COMPRESSO EQUIPMENT EQUIPMENT R NONEMERGE A0100 [facility] 1 [facility] HEALTH TRANSPORT ENTERPRIS MANAGEMEN ATION; ES T TAXI NONEMERGE A0100 [facility] 1 [facility] HEALTH TRANSPORT ENTERPRIS MANAGEMEN ATION; ES T TAXI NONEMERGE A0100 [facility] 1 [facility]ANS[facility] HEALTH TRANSPORT ENTERPRIS MANAGEMEN ATION; ES T TAXI NONEMERGE A0100 [facility] 1 [facility] HEALTH TRANSPORT ENTERPRIS MANAGEMEN ATION; ES T [facility]I HOME CARE S5108 [facility] 1 [facility] D AREA D AREA CARE AGENCY AGENCY CLIENT PER 15 MIN NONEMERGE A0100 [facility] 1 [facility] HEALTH TRANSPORT ENTERPRIS MANAGEMEN ATION; ES T TAXI NONEMERGE A0100 [facility] OK[facility] 1 TRANSIT HEALTH TRANSPORT ENTERPRIS MANAGEMEN ATION; ES T TAXI NONEMERGE A0100 [facility] 1 TRANS[facility] HEALTH TRANSPORT ENTERPRIS MANAGEMEN ATION; ES T TAXI NONEMERGE A0100 [facility] OKY 1 TRANSIT HEALTH TRANSPORT ENTERPRIS MANAGEMEN ATION; ES T TAXI O2 CONC 1 E1390 [facility] MEDICAL MEDICAL 85%/>[facility] CONC AT [facility] FLW RATE NONEMERGE A0100 [facility] NCY 1 TRANSIT HEALTH TRANSPORT ENTERPRIS MANAGEMEN ATION; ES T TAXI NONEMERGE A0100 [facility] 1 TRANSIT HEALTH TRANSPORT ENTERPRIS MANAGEMEN ATION; ES T TAXI NONEMERGE A0100 [facility] 1 TRANSIT HEALTH TRANSPORT ENTERPRIS MANAGEMEN ATION; ES T T[facility]I HOME CARE S5108 [facility] TRAINING 1 [facility] D AREA D AREA CARE AGENCY AGENCY CLIENT PER 15 MIN NONEMERGE A0100 [facility] 1 TRANSIT HEALTH TRANSPORT ENTERPRIS MANAGEMEN ATION; ES T TAXI NONEMERGE A0100 [facility] 1 TRANSIT HEALTH TRANSPORT ENTERPRIS MANAGEMEN ATION; ES T TAXI HOME CARE S5108 [facility] TRAINING 1 [facility] D AREA D AREA CARE AGENCY AGENCY CLIENT PER 15 MIN PROTHROMB 99898 LONG ALVES IN TIME 1 O MEDICAL [...] COMPRESSO EQUIPMENT EQUIPMENT R HOME CARE S5108 [facility] TRAINING 1 [place] D AREA D AREA CARE AGENCY AGENCY CLIENT PER 15 MIN HOME CARE S5108 [facility] TRAINING 1 [place] D AREA D AREA CARE AGENCY AGENCY CLIENT PER 15 MIN HOME CARE S5108 [facility] TRAINING 1 [place] D AREA D AREA CARE AGENCY AGENCY CLIENT PER 15 MIN NONEMERGE A0100 [facility] 1 TRANSIT HEALTH TRANSPORT ENTERPRIS MANAGEMEN ATION; ES T TAXI HOME CARE S5108 [facility] TRAINING 1 [place] D AREA D AREA CARE AGENCY AGENCY CLIENT PER 15 MIN HOME CARE S5108 [facility] TRAINING 1 [place] [facility] D AREA D AREA CARE AGENCY AGENCY CLIENT PER 15 MIN NONEMERGE A0100 [facility] 1 TRANSIT HEALTH TRANSPORT ENTERPRIS MANAGEMEN ATION; ES T TAXI NONEMERGE A0100 [facility] 1 TRANSIT HEALTH TRANSPORT ENTERPRIS MANAGEMEN ATION; ES T TAXI HOME CARE S5108 [facility] TRAINING 1 [facility] D AREA D AREA CARE AGENCY AGENCY CLIENT PER 15 MIN PROTHROMB [id number] [place] [address] IN TIME 1 O MEDICAL O MEDICAL ASSOC LA ASSOC LA HOME CARE S5108 [facility] TRAINING 1 [place] D AREA D AREA CARE AGENCY AGENCY CLIENT PER 15 MIN NONEMERGE A0100 [facility] 1 TRANSIT HEALTH TRANSPORT ENTERPRIS MANAGEMEN ATION; ES T TAXI NONEMERGE A0100 [facility] TRANSIT HEALTH TRANSPORT ENTERPRIS MANAGEMEN ATION; ES T TAXI NONEMERGE A0100 [facility] 1 TRANSIT HEALTH TRANSPORT ENTERPRIS MANAGEMEN ATION; ES T TAXI HOME CARE S5108 [facility] TRAINING 1 [place] D AREA D AREA CARE AGENCY AGENCY CLIENT PER 15 MIN PROTHROMB 82750 [facility] IN TIME 1 O MEDICAL O MEDICAL [...] AGENCY AGENCY CLIENT PER 15 MIN PROTHROMB 06845 [facility] IN TIME 1 O MEDICAL O MEDICAL ASSOC LA ASSOC LA NONEMERGE A0100 [facility] 1 TRANSIT HEALTH TRANSPORT ENTERPRIS MANAGEMEN ATION; ES T TAXI HOME CARE S5108 [facility] TRAINING 1 [facility] HOME D AREA D AREA CARE AGENCY AGENCY CLIENT PER 15 MIN OBSERVATI 40910 [place] MADELINE [place] ON CARE 1 MEDICAL DISCHARGE SERV FOUNDATIO MANAGEMEN T ECG 99327 MALLY SHEETS ELISA ROUTINE 1 MEDICAL ECG SERV W/LEAST FOUNDATIO 12 LDS I&R ONLY ELECTROEN 91609 MALLY CHIN GUL CEPHALOGR 1 MEDICAL AM W/REC SERV AWAKE&[place] [address] MALLY ASTUDILLO HEAD/BRAI 1 MEDICAL N W/[place] [address] IZABELA KEYIDG HEAD/BRAI 1 E MAYNOR N W/O RADIOLOGY CONTRAST ASSOC MATERIAL RADIOLOGI 59141 IZABELA LYN C 1 EXAMINATI RADIOLOGY ON CHEST ASSOC SINGLE VIEW FRONTAL INSJ TEMP 90553 [facility] NDWELLG 1 HOSP INC HOSP INC 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 SIMPLE ECG 65930 EMERGENCY ARANA ROUTINE 1 COVERAGE SEA ECG W/LEAST CORPORATI 12 LDS I&R ONLY SBSQ 51011 [facility] 1 MEDICAL CARE/DAY SERV 25 FOUNDATIO MINUTES NONINVASI 63090 [facility] VE 1 HOSP INC HOSP INC EAR/PULSE OXIMETRY SINGLE DETER INITIAL 50713 [facility] 1 MEDICAL CARE/DAY SERV 70 FOUNDATIO MINUTES MRA NECK 51865 SD ASHA KWA W/O 1 MEDICAL CONTRST SERV MATERIAL FOUNDATIO MRI BRAIN 00845 SD ASHA KWA BRAIN 1 MEDICAL STEM W/O SERV CONTRAST FOUNDATIO MATERIAL MRA HEAD 77949 MALLY ASHA KWA W/O 1 MEDICAL CONTRST SERV MATERIAL FOUNDATIO THROMBOPL 60065 [facility] ASTIN 1 HOSP INC HOSP INC TIME PARTIAL PLASMA/[place] [address] [facility] HEAD/BRAI 1 HOSP INC HOSP INC N W/O CONTRAST MATERIAL INSJ TEMP 20024 [facility] NDWELLG 1 HOSP INC HOSP INC 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 SIMPLE COLLECTIO 81424 [facility] N VENOUS 1 HOSP INC HOSP INC BLOOD VENIPUNCT URE INJECTION J1885 [facility] 1 HOSP INC HOSP INC KETOROLAC TROMETHAM INE PER 15 MG PROTHROMB 20893 [facility] IN TIME 1 HOSP INC HOSP INC BLOOD 95363 [facility] COUNT 1 HOSP INC HOSP INC COMPLETE AUTO&AUTO DIFRNTL WBC NONINVASI 18824 [facility] VE 1 HOSP [facility] HOSP INC EAR/PULSE OXIMETRY SINGLE DETER COMPREHEN 40041 [facility] SIVE 1 HOSP INC HOSP INC METABOLIC PANEL THER 97102 [facility] PROPH/DX 1 HOSP [facility] HOSP INC NJX IV PUSH SINGLE/1S T SBST/DRUG URNLS DIP 65179 [facility] 1 HOSP [facility] HOSP INC STICK/TAB LET RGNT AUTO W/O MICROSCOP Y HOME CARE S5108 [facility] 1 [facility] D AREA D AREA CARE AGENCY AGENCY CLIENT PER 15 MIN GROUND A0425 [facility] MILEAGE 1 EMS EMS PER STATUTE MILE NONEMERGE A0100 [facility] HE[facility] TRANSPORT ENTERPRIS MANAGEMEN ATION; ES T TAXI DRUG SCR [id number] [facility] NOT 1 HOSP INC HOSP INC CHROMATOG RAPHIC; ANY NUMBER PT ENC AMB A0427 [facility] SERVICE 1 EMS EMS ALS EMERGENCY TRANSPORT LEVEL 1 NONEMERGE A0100 [facility] HEALTH TRANSPORT ENTERPRIS MANAGEMEN ATION; ES T TAXI NONEMERGE A0100 [facility] TRANS[facility] HEALTH TRANSPORT ENTERPRIS MANAGEMEN ATION; ES T TAXI NONEMERGE A0100 [facility] 1 TRANSIT HEALTH TRANSPORT ENTERPRIS MANAGEMEN ATION; ES T TAXI HOME CARE S5108 [facility] TRAINING 1 [facility] D AREA D AREA CARE AGENCY AGENCY CLIENT PER 15 MIN HOME CARE S5108 [facility] TRAINING 1 [place] [facility] D AREA D AREA CARE AGENCY AGENCY CLIENT PER 15 MIN HOME CARE S5108 [facility] TRAINING 1 [place] D AREA D AREA CARE AGENCY AGENCY CLIENT PER 15 MIN HOME CARE S5108 [facility] TRAINING 1 [place] [place] D AREA D AREA CARE AGENCY AGENCY CLIENT PER 15 MIN PROTHROMB 25490 [facility] IN TIME 1 O MEDICAL O MEDICAL ASSOC LA ASSOC LA NONEMERGE A0100 [facility] 1 TRANSIT HEALTH TRANSPORT ENTERPRIS MANAGEMEN ATION; ES T TAXI HOME CARE S5108 [facility] TRAINING 1 [place] [place] D AREA D AREA CARE AGENCY AGENCY CLIENT PER 15 MIN HOME CARE S5108 [facility] TRAINING 1 [place] [place] D AREA D AREA CARE AGENCY AGENCY CLIENT PER 15 MIN NEBULIZER E0570 CA[facility] ERAZO WITH 1 MEDICAL MEDICAL COMPRESSO EQUIPMENT EQUIPMENT R PROTHROMB 46443 [facility] IN TIME 1 O MEDICAL O MEDICAL ASSOC LA ASSOC LA HOME CARE S5108 [facility] TRAINING 1 [place] D AREA D AREA CARE AGENCY AGENCY CLIENT PER 15 MIN NONEMERGE A0100 [facility] 1 TRANSIT HEALTH TRANSPORT ENTERPRIS MANAGEMEN ATION; ES T TAXI HOME CARE S5108 [facility] TRAINING 1 [facility] D AREA D AREA CARE AGENCY AGENCY CLIENT PER 15 MIN NONEMERGE A0100 [facility] 1 TRANSIT HEALTH TRANSPORT ENTERPRIS MANAGEMEN ATION; ES T TAXI NONEMERGE A0100 [facility] 1 TRANSIT HEALTH TRANSPORT ENTERPRIS MANAGEMEN ATION; ES T TAXI HOME CARE S5108 [facility] TRAINING 1 [facility] D AREA D AREA CARE AGENCY AGENCY CLIENT PER 15 MIN NONEMERGE A0100 [facility] 1 TRANSIT HEALTH TRANSPORT ENTERPRIS MANAGEMEN ATION; ES T TAXI NONEMERGE A0100 [facility] 1 TRANSIT HEALTH TRANSPORT ENTERPRIS MANAGEMEN ATION; ES T TAXI HOME CARE S5108 [facility] TRAINING 1 [facility] AREA D AREA CARE AGENCY AGENCY CLIENT PER 15 MIN NONEMERGE A0100 [facility] 1 TRANSIT HEALTH TRANSPORT ENTERPRIS MANAGEMEN ATION; ES T TAXI HOME CARE S5108 [facility] TRAINING 1 [facility] D AREA D AREA CARE AGENCY AGENCY CLIENT PER 15 MIN NONEMERGE A0100 [facility] 1 TRANSIT HEALTH TRANSPORT ENTERPRIS MANAGEMEN ATION; ES T TAXI HOME CARE S5108 [facility] TRAINING 1 [facility] AREA D AREA CARE AGENCY AGENCY CLIENT PER 15 MIN HOME CARE S5108 [facility] TRA[facility] AREA D AREA CARE AGENCY AGENCY CLIENT PER 15 MIN NONEMERGE A0100 [facility] 1 TRANSIT HEALTH TRANSPORT ENTERPRIS MANAGEMEN ATION; ES T TAXI NONEMERGE A0100 [facility] 1 TRANSIT HEALTH TRANSPORT ENTERPRIS MANAGEMEN ATION; ES T TAXI NONEMERGE A0100 [facility] 1 TRANSIT HEALTH TRANSPORT ENTERPRIS MANAGEMEN ATION; ES T TAXI HOME CARE S5108 [facility] TRAINING 1 [facility] AREA D AREA CARE AGENCY AGENCY CLIENT PER 15 MIN NONEMERGE A0100 [facility] 1 TRANSIT HEALTH TRANSPORT ENTERPRIS MANAGEMEN ATION; ES T TAXI NONEMERGE A0100 [facility] 1 TRANSIT HEALTH TRANSPORT ENTERPRIS MANAGEMEN ATION; ES T TAXI HOME CARE S5108 [facility] TRAINING 1 [facility] AREA D AREA CARE AGENCY AGENCY CLIENT PER 15 MIN NONEMERGE A0100 [facility] 1 TRANSIT HEALTH TRANSPORT ENTERPRIS MANAGEMEN ATION; ES T TAXI NONEMERGE A0100 [facility] 1 TRANSIT HEALTH TRANSPORT ENTERPRIS MANAGEMEN ATION; ES T TAXI HOME CARE S5108 [facility] TRAINING 1 [facility] AREA AREA CARE AGENCY AGENCY CLIENT PER 15 MIN NEBULIZER E0570 CASTRO ERAZO WITH 1 MEDICAL MEDICAL COMPRESSO EQUIPMENT EQUIPMENT R NONEMERGE A0100 [facility] 1 TRANSIT HEALTH TRANSPORT ENTERPRIS MANAGEMEN ATION; ES T TAXI HOME CARE S5108 [facility] TRAINING [address] [facility] AREA D AREA CARE AGENCY AGENCY CLIENT PER 15 MIN NONEMERGE A0100 [facility] 1 TRANSIT HEALTH TRANSPORT ENTERPRIS MANAGEMEN ATION; ES T TAXI NONEMERGE A0100 [facility] 1 TRANSIT HEALTH TRANSPORT ENTERPRIS MANAGEMEN ATION; ES T TAXI NONEMERGE A0100 [facility] 1 TRANSIT HEALTH TRANSPORT ENTERPRIS MANAGEMEN ATION; ES T TAXI HOME CARE S5108 [facility] TRAINING 1 [facility] AREA D AREA CARE AGENCY AGENCY CLIENT PER 15 MIN CONTINUOU E0601 [facility] S 1 MEDICAL MEDICAL [facility] LLC AIRWAY PRESSURE DEVICE HOME CARE S5108 [facility] TRAINING 1 [facility] AREA CARE AGENCY AGENCY CLIENT PER 15 MIN NONEMERGE A0100 [facility] 1 TRANSIT HEALTH TRANSPORT ENTERPRIS MANAGEMEN ATION; ES T TAXI NONEMERGE A0100 [facility] 1 TRANSIT HEALTH TRANSPORT ENTERPRIS MANAGEMEN ATION; ES T TAXI LIPID 08026 [facility] PANEL 1 O MEDICAL O MEDICAL ASSOC LA ASSOC LA COMPREHEN 29923 [facility] SIVE 1 O MEDICAL O MEDICAL METABOLIC ASSOC LA ASSOC LA PANEL PROTHROMB 48163 [facility] IN TIME 1 O MEDICAL O MEDICAL ASSOC LA ASSOC LA BLOOD 40406 [facility] COUNT 1 O MEDICAL O MEDICAL COMPLETE ASSOC LA ASSOC LA AUTO&AUTO DIFRNTL WBC COLLECTIO 36002 [facility] N VENOUS 1 O MEDICAL O MEDICAL BLOOD ASSOC LA ASSOC LA VENIPUNCT URE HEMOGLOBI 50855 [facility] N 1 O MEDICAL O MEDICAL GLYCOSYLA ASSOC [place] [address] [facility] THYROID 1 O MEDICAL O MEDICAL STIMULATI ASSOC LA ASSOC LA NG HORMONE TSH HOME CARE S5108 [facility] TRAINING 1 [place] D AREA D AREA CARE AGENCY AGENCY CLIENT PER 15 MIN NONEMERGE A0100 [facility] 1 TRANSIT HEALTH TRANSPORT ENTERPRIS MANAGEMEN ATION; ES T TAXI MISC TX T1999 [facility] ITEMS & 1 [place] [place] S[facility] D AREA D AREA RETAIL AGENCY AGENCY PURCHASE NOC HOME CARE S5108 [facility] TRAINING 1 [place] D AREA D AREA CARE AGENCY AGENCY CLIENT PER 15 MIN NONEMERGE A0100 [facility] 1 TRANSIT HEALTH TRANSPORT ENTERPRIS MANAGEMEN ATION; ES T TAXI NONEMERGE A0100 [facility] 1 TRANSIT HEALTH TRANSPORT ENTERPRIS MANAGEMEN ATION; ES T TAXI HOME CARE S5108 [facility] TRAINING 1 [facility] D AREA D AREA CARE AGENCY AGENCY CLIENT PER 15 MIN NONEMERGE A0100 [facility] 1 TRANSIT HEALTH TRANSPORT ENTERPRIS MANAGEMEN ATION; ES T TAXI HOME CARE S5108 [facility] TRAINING 1 [place] D AREA D AREA CARE AGENCY AGENCY CLIENT PER 15 MIN HOME CARE S5108 [facility] TRAINING 1 [place] D AREA D AREA CARE AGENCY AGENCY CLIENT PER 15 MIN NONEMERGE A0100 [facility] 1 TRANSIT HEALTH TRANSPORT ENTERPRIS MANAGEMEN ATION; ES T TAXI NONEMERGE A0100 [facility] 1 TRANSIT HEALTH TRANSPORT ENTERPRIS MANAGEMEN ATION; ES T TAXI HOME CARE S5108 [facility] TRAINING 1 [place] D AREA D AREA CARE AGENCY AGENCY CLIENT PER 15 MIN HOME CARE S5108 [facility] TRAINING 1 [place] D AREA D AREA CARE AGENCY AGENCY CLIENT PER 15 MIN NONEMERGE A0100 [facility] 1 TRANSIT HEALTH TRANSPORT ENTERPRIS MANAGEMEN ATION; ES T TAXI HOME CARE S5108 [facility] TRAINING 1 [facility] AREA D AREA CARE AGENCY AGENCY CLIENT PER 15 MIN HOME CARE S5108 [facility] TRAINING 1 [facility] AREA D AREA CARE AGENCY AGENCY CLIENT PER 15 MIN NONEMERGE A0100 [facility] 1 TRANSIT HEALTH TRANSPORT ENTERPRIS MANAGEMEN ATION; ES T TAXI NONEMERGE A0100 [facility] 1 TRANSIT HEALTH TRANSPORT ENTERPRIS MANAGEMEN ATION; ES T TAXI NEBULIZER E0570 [facility] ERAZO WITH 1 MEDICAL MEDICAL COMPRESSO EQUIPMEN EQUIPMEN R COMPUTER- 07294 [facility] AIDED 1 HOSP INC HOSP INC DETECTION SCREENING MAMMOGRAP HY NONEMERGE A0100 [facility] 1 TRANSIT HEALTH TRANSPORT ENTERPRIS MANAGEMEN ATION; ES T TAXI HOME CARE S5108 [facility] TRAINING 1 [facility] AREA D AREA CARE AGENCY AGENCY CLIENT PER 15 MIN SCREENING [id number] [facility] 1 HOSP INC HOSP INC MAMMOGRAP HY KARLA INCL CAD WHEN PERFORMD HOME CARE S5108 [facility] TRAINING 1 [facility] AREA D AREA CARE AGENCY AGENCY CLIENT PER 15 MIN NONEMERGE A0100 [facility] 1 TRANSIT HEALTH TRANSPORT ENTERPRIS MANAGEMEN ATION; ES T TAXI NONEMERGE A0100 [facility] 1 TRANSIT HEALTH TRANSPORT ENTERPRIS MANAGEMEN ATION; ES T TAXI CONTINUOU E0601 [facility] S 1 MEDICAL MEDICAL POSITIVE [facility] AIRWAY PRESSURE DEVICE PROTHROMB 26442 [facility] IN TIME 1 O MEDICAL O MEDICAL ASSOC LA ASSOC LA HOME CARE S5108 [facility] TRAINING 1 [facility] D AREA D AREA CARE AGENCY AGENCY CLIENT PER 15 MIN NONEMERGE A0100 [facility] 1 TRANSIT HEALTH TRANSPORT ENTERPRIS MANAGEMEN ATION; ES T TAXI NONEMERGE A0100 [facility] 1 TRANSIT HEALTH TRANSPORT ENTERPRIS MANAGEMEN ATION; ES T TAXI HOME CARE S5108 [facility] TRAINING 1 [place] D AREA D AREA CARE AGENCY AGENCY CLIENT PER 15 MIN NONEMERGE A0100 [facility] 1 TRANSIT HEALTH TRANSPORT ENTERPRIS MANAGEMEN ATION; ES T TAXI NONEMERGE A0100 [facility] 1 TRANSIT HEALTH TRANSPORT ENTERPRIS MANAGEMEN ATION; ES T TAXI HOME CARE S5108 [facility] TRAINING 1 [place] D AREA D AREA CARE AGENCY AGENCY CLIENT PER 15 MIN HOME CARE S5108 [facility] TRAINING 1 [place] D AREA D AREA CARE AGENCY AGENCY CLIENT PER 15 MIN NONEMERGE A0100 [facility] 1 TRANSIT HEALTH TRANSPORT ENTERPRIS MANAGEMEN ATION; ES T TAXI NONEMERGE A0100 [facility] 1 TRANSIT HEALTH TRANSPORT ENTERPRIS MANAGEMEN ATION; ES T TAXI HOME CARE S5108 [facility] TRAINING 1 [facility] D AREA D AREA CARE AGENCY AGENCY CLIENT PER 15 MIN NONEMERGE A0100 [facility] ENGLISH NCY 1 [facility] ENTERPRIS MANAGEMEN ATION; ES T [facility] S5108 [facility] 1 [facility] D AREA D AREA CARE AGENCY AGENCY CLIENT PER 15 MIN INJECTION [id number] [facility] MORPHINE [facility] SULFATE UP TO 10 MG NONINVASI 01393 [facility] VE [facility] EAR/PULSE OXIMETRY SINGLE DETER PROTHROMB 35748 [facility] IN TIME 1 [facility] BLOOD 34032 [facility] COUNT 1 [facility] COMPLETE AUTO&AUTO DIFRNTL WBC COLLECTIO 83043 [facility] N VENOUS 1 [facility] BLOOD VENIPUNCT URE CREATINE 15873 [facility] KINASE 1 [facility] TOTAL BASIC 09530 [facility] METABOLIC 1 [facility] PANEL CALCIUM TOTAL OBSERVATI 90301 [facility] HUSSEIN COR ON CARE 1 [facility]- [facility]CHARGE [facility]ITAL[facility] S MANAGEMEN T CREATINE 95132 [facility] KINASE MB 1 [facility] [place] [address] [facility] TROPONIN 1 [facility] [place] [address] [facility] TROPONIN 1 HOSP INC HOSP INC QUANTITAT [place]IK[place] IRON 59396 [facility] BINDING 1 [facility] CAPACITY NATRIURET 11412 [facility] IC 1 [place] [address] [facility] IRON 1 [facility] CREATINE 28650 [facility] KINASE MB 1 [facility] [place] [address] [facility] THYROID 1 [facility] H[facility] STIMULATI NG HORMONE TSH RADIOLOGI 35952 [facility] C 1 [facility] HOSP INC EXAMINATI [place] [address] [facility] THYROXINE 1 [facility] TOTAL CREATINE 19704 [facility] KINASE 1 [facility] TOTAL COLLECTIO 29995 [facility] N VENOUS 1 [facility] BLOOD VENIPUNCT URE BLOOD 35841 [facility] COUNT 1 [facility] COMPLETE AUTO&AUTO DIFRNTL WBC PROTHROMB 46343 [facility] IN TIME 1 [facility] INC HOSP INC ECG 91446 [facility] [place] ROUTINE 1 [place] ELZ ECG W/LEAST CORPORATI 12 LDS I&R ONLY NONINVASI 36878 [facility] VE 1 [facility] EAR/PULSE OXIMETRY SINGLE DETER COMPREHEN 34439 [facility] SIVE 1 [facility] INC METABOLIC PANEL INJECTION J2270 [facility] MORPHINE 1 HOSP INC H[facility] INC SULFATE UP TO 10 MG ECG [id number] [facility] ROUTINE 1 HOSP INC HOSP INC ECG W/LEAST 12 LDS TRCG ONLY W/O I&R GROUND A0425 [facility] MILEAGE 1 EMS EMS PER STATUTE MILE AMB A0427 [facility] SERVICE 1 EMS EMS ALS EMERGENCY TRANSPORT LEVEL 1 HOME CARE S5108 [facility] TRAINING 1 [facility] AREA CARE AGENCY AGENCY CLIENT PER 15 MIN INCONTINE T4541 PERSONAL PERSONAL NCE 1 TOUCH TOUCH PRODUCT HOME SHELTER CARE DISPOSABL OF OF E UNDPAD LARGE EA DISPBL T4535 PERSONAL PERSONAL LINER/JARED 1 TOUCH TOUCH ELD/GUARD HOME SHELTER CARE /PAD/UNDG OF OF RMNT INCONT EA NONEMERGE A0100 [facility] 1 [facility] ENTERPRIS MANAGEMEN ATION; ES T TAXI NEBULIZER E0570 [facility]STRO ERAZO WITH 1 MEDICAL MEDICAL COMPRESSO EQUIPMEN EQUIPMEN R NONEMERGE A0100 [facility] NCY 1 [facility] ENTERPRIS MANAGEMEN ATION; ES T TAXI CT LUMBAR 69284 [facility] [employer] SPINE 1 D. W/O RADIOLOGY CONTRAST ASSOC MATERIAL 3D 02260 [facility] [employer] RENDERING 1 D. W/INTERP RADIOLOGY & ASSOC POSTPROCE SS SUPERVISI ON HOME CARE S5108 [facility] TRAINING 1 [facility]NOTE 3] HOME D AREA D AREA CARE AGENCY AGENCY CLIENT PER 15 MIN HOME CARE S5108 [facility] TRAINING 1 [facility]NOTE 3] HOME D AREA D AREA CARE AGENCY AGENCY CLIENT PER 15 MIN GROUND A0425 [facility] MILEAGE 1 EMS EMS PER STATUTE MILE AMBULANCE A0429 [facility] SERVICE 1 EMS EMS BLS EMERGENCY TRANSPORT [...] LLC USED W/POS ARWAY PRESS DEVICE NONINVASI 80603 [facility] CO VE 1 HOSP INC HOSP INC [...] CARE S5108 [facility] TRAINING 1 [place] Ind[facility] HOME D AREA D AREA CARE AGENCY AGENCY CLIENT PER 15 MIN HOME CARE S5108 [facility] TRAINING 1 [place] [facility] HOME D AREA D AREA CARE AGENCY AGENCY CLIENT PER 15 MIN NONEMERGE A0100 [facility] NCY 1 [facility] ENTERPRIS MANAGEMEN ATION; ES T TAXI NONEMERGE A0100 [facility] NCY 1 [facility] ENTERPRIS MANAGEMEN ATION; ES T TAXI NONEMERGE A0100 [facility] OKY 1 [facility] ENTERPRIS MANAGEMEN ATION; ES T TAXI HOME CARE S5108 [facility] TRAINING 1 [place] HOME D AREA D AREA CARE AGENCY AGENCY CLIENT PER 15 MIN NONINVASI 21687 [facility] CO VE 1 HOSP INC HOSP INC EAR/PULSE OXIMETRY SINGLE DETER RADEX 20665 [facility] SPINE 1 HOSP INC HOSP INC LUMBOSACR AL MINIMUM 4 VIEWS NONEMERGE A0100 [facility] OKY 1 [facility] ENTERPRIS MANAGEMEN ATION; ES T TAXI HOME CARE S5108 [facility] TRAINING 1 [place] [facility] HOME D AREA D AREA CARE AGENCY AGENCY CLIENT PER 15 MIN NONEMERGE A0100 [facility] OKY 1 [facility] ENTERPRIS MANAGEMEN ATION; ES T TAXI NONEMERGE A0100 [facility] NCY 1 [facility] ENTERPRIS MANAGEMEN ATION; ES T TAXI HOME CARE S5108 [facility] TRAINING 1 JOELBERISABEL [facility] HOME D AREA D AREA CARE AGENCY AGENCY CLIENT PER 15 MIN NONEMERGE A0100 [facility] ENGL[facility] NCY 1 [facility] ENTERPRIS MANAGEMEN ATION; ES T TAXI HOME CARE S5108 [facility] TRAINING 1 JOELBERISABEL [facility] HOME D AREA D AREA CARE AGENCY AGENCY CLIENT PER 15 MIN NONINVASI 92010 [facility] VE 1 [facility]P INC [facility]P INC EAR/PULSE OXIMETRY SINGLE DETER ECG 85635 [facility] ROUTINE 1 [facility] INC HOSP INC ECG W/LEAST 12 LDS TRCG ONLY W/O I&R INJ J2930 [facility] METHYLPRD 1 HOSP INC HOSP INC NISOLONE SODIUM SUCCNAT TO 125 MG OBSERVATI 80932 [facility] MENDOZA HUSSEIN COR ON CARE 1 [facility]ITAL[facility] S MANAGEMEN T COLLECTIO 10816 [facility] N VENOUS 1 HOSP INC HOSP INC BLOOD VENIPUNCT URE PROTHROMB 48553 [facility] IN TIME 1 [facility]OSP INC [facility]OSP INC BLOOD 14770 [facility] COUNT 1 [facility]P INC [facility]OSP INC COMPLETE AUTOMATED PROTHROMB 88196 [facility] IN TIME 1 [facility]P INC [facility]OSP INC COLLECTIO 34207 [facility] N VENOUS 1 [facility]OSP INC HOSP INC BLOOD VENIPUNCT URE BASIC 81551 [facility] METABOLIC 1 [facility]OSP INC [facility]OSP INC PANEL CALCIUM TOTAL CREATINE 71707 [facility] KELLY ESTESNE CO KINASE 1 HOSP INC HOSP INC TOTAL CREATINE 12306 [facility] KINASE MB 1 [facility] [place] [address] [facility] TROPONIN 1 HOSP INC HOSP INC QUANTITAT TIKA INJECTION J2270 [facility] MORPHINE 1 HOSP INC HOSP INC SULFATE UP TO 10 MG INJ J2930 [facility] METHYLPRD 1 HOSP INC HOSP INC NISOLONE SODIUM SUCCNAT TO 125 MG NONINVASI 64899 [facility] CO VE 1 HOSP [facility] HOSP INC EAR/PULSE OXIMETRY SINGLE DETER PRESSURIZ 40452 [facility] ED/NONPRE 1 HOSP [facility] SSURIZED INHALATIO N TREATMENT INITIAL 45316 [facility] HUSSEIN COR OBSERVATI 1 HOSPITAL- ON HOSPITALI CARE/DAY S 50 MINUTES CULTURE 49821 [facility] CO BACTERIAL 1 HOSP [facility] HOSP INC BLOOD AEROBIC W/ID ISOLATES ARTERIAL 43202 [facility] CO PUNCTURE 1 HOSP [facility] HOSP INC WITHDRAWA L BLOOD DX NONINVASI 22346 [facility] CO VE 1 [facility] EAR/PULSE OXIMETRY SINGLE DETER THERAPEUT 39454 [facility] IC 1 [facility] INJECTION IV PUSH EACH NEW DRUG INJ J2930 [facility] CO METHYLPRD 1 [facility] NISOLONE SODIUM SUCCNAT TO 125 MG ECG 72969 [facility] BALJIT CO ROUTINE 1 [facility] ECG W/LEAST 12 LDS TRCG ONLY W/O I&R THER 56128 [facility] CO PROPH/DX 1 [facility] NJX IV PUSH SINGLE/1S T SBST/DRUG DEMO&/SUKHDVE 97719 [facility] CO L OF PT 1 [facility] UTILIZ AERSL GEN/NEB/I NHLR/[place] [address] [facility] TROPONIN 1 HOSP [facility] HOSP INC QUANTITAT TIKA CREATINE 45247 [facility] KINASE MB 1 HOSP [facility] HOSP INC FRACTION ONLY CREATINE 40562 [facility] KINASE 1 HOSP [facility] HOSP INC TOTAL BLOOD 67362 [facility] GASES ANY 1 HOSP [facility] HOSP INC COMBINATI ON PH PCO2 PO2 CO2 HCO3 THROMBOPL 17868 [facility] ASTIN 1 HOSP [facility] HOSP INC TIME PARTIAL PLASMA/WH OLE BLOOD RADIOLOGI 68619 PREMIER MAY JENNIFER C 1 IMAGING & EXAMINATI ON CHEST INTERVENT SINGLE I VIEW FRONTAL BASIC 15272 [facility] METABOLIC 1 HOSP INC HOSP INC PANEL CALCIUM TOTAL INJECTION J1885 [facility] 1 HOSP [facility] HOSP INC KETOROLAC TROMETHAM INE PER 15 MG PROTHROMB 26934 [facility] IN TIME 1 HOSP INC HOSP INC BLOOD 27957 [facility] COUNT 1 HOSP INC HOSP INC COMPLETE AUTO&AUTO DIFRNTL WBC COLLECTIO 85108 [facility] N VENOUS 1 HOSP [facility] BLOOD VENIPUNCT URE HOME CARE S5108 [facility] TRAINING 1 [facility] Fast Asset D AREA D AREA CARE AGENCY AGENCY CLIENT PER 15 MIN NONEMERGE A0100 [facility] OKY 1 [facility] ENTERPRIS MANAGEMEN ATION; ES T TAXI NONEMERGE A0100 [facility] NCY 1 [facility] ENTERPRIS MANAGEMEN ATION; ES T TAXI HOME CARE S5108 [facility] TRAINING 1 [facility] [employer] D AREA D AREA CARE AGENCY AGENCY CLIENT PER 15 MIN NONEMERGE A0100 [facility] NCY 1 [facility] ENTERPRIS MANAGEMEN ATION; ES T TAXI BLD GLU A4253 LIBERTY LIBERTY TEST/REAG 1 MEDICAL MEDICAL T STRIPS SUPPLY SUPPLY HOME BLD GLU MON-50 LANCETS A4259 LIBERTY LIBERTY PER BOX 1 MEDICAL MEDICAL OF 100 SUPPLY SUPPLY NONEMERGE A0100 [facility] OKY 1 [facility] ENTERPRIS MANAGEMEN ATION; ES T TAXI HOME CARE S5108 [facility] TRAINING 1 [facility] [employer] D AREA D AREA CARE AGENCY AGENCY CLIENT PER 15 MIN ALBUTEROL J7613 F&H DRUGS F&H DRUGS INHAL 1 INC INC NON-CP PROD THRU DME U DOSE 1 MG RADIOLOGI 31618 LONG Tyler EXAM 1 O MEDICAL BON CHEST 2 VIEWS ASSOCIATE FRONTAL&L ATERAL NONEMERGE A0100 [facility] NCY 1 [facility] ENTERPRIS MANAGEMEN ATION; ES T TAXI PHRM Q0513 F&H DRUGS F&H DRUGS DISPENSIN 1 INC INC G FEE INHALATIO N RX; PER 30 DAYS ADMN SET A7003 CASTRO ERAZO SM VOL 1 MEDICAL MEDICAL NONFILTR EQUIPMEN EQUIPMEN PNEUMAT NEBULIZR DISPBL NEBULIZER E0570 CASTRO ERAZO WITH 1 MEDICAL MEDICAL COMPRESSO EQUIPMEN EQUIPMEN R NONEMERGE A0100 [facility] ENTERPRIS MANAGEMEN ATION; ES T TAXI HOME CARE S5108 [facility] TRAINING 1 [facility] AREA D AREA CARE AGENCY AGENCY CLIENT PER 15 MIN NONEMERGE A0100 [facility] ENTERPRIS MANAGEMEN ATION; ES T TAXI NONEMERGE A0100 [facility] ENTERPRIS MANAGEMEN ATION; ES T TAXI HOME CARE S5108 [facility] TRAINING 1 [facility] AREA D AREA CARE AGENCY AGENCY CLIENT PER 15 MIN NONEMERGE A0100 [facility] OKY 1 [facility]SP[facility] ENTERPRIS MANAGEMEN ATION; ES T TAXI NONEMERGE A0100 [facility] ENTERPRIS MANAGEMEN ATION; ES T TAXI HOME CARE S5108 [facility] TRAINING 1 [facility] AREA CARE AGENCY AGENCY CLIENT PER 15 MIN SLEEP STD 81179 OSIEL AGUILAR AGUILAR OSIEL AIRFLOW 1 MD HRT CONSULTIN RATE&O2 G SRV SAT EFFORT UNATT NONEMERGE A0100 [facility] OKY 1 [facility] ENTERPRIS MANAGEMEN ATION; ES T TAXI NONEMERGE A0100 [facility] ENTERPRIS MANAGEMEN ATION; ES T TAXI HOME CARE S5108 [facility] TRAINING 1 [facility] AREA CARE AGENCY AGENCY CLIENT PER 15 MIN HOME CARE S5108 [facility] TRAINING 1 [facility] AREA D AREA CARE AGENCY AGENCY CLIENT PER 15 MIN NONEMERGE A0100 [facility]SP[facility] ENTERPRIS MANAGEMEN ATION; ES T TAXI NONEMERGE A0100 [facility] NCY 1 [facility] ENTERPRIS MANAGEMEN ATION; ES T TAXI HOME CARE S5108 [facility] TRAINING 1 [place] [facility] HOME D AREA D AREA CARE AGENCY AGENCY CLIENT PER 15 MIN NONEMERGE A0100 [facility] OKY 1 [facility] ENTERPRIS MANAGEMEN ATION; ES T TAXI NONEMERGE A0100 [facility] OKY 1 [facility]SP[facility] ENTERPRIS MANAGEMEN ATION; ES T TAXI HOME CARE S5108 [facility] TRAINING 1 [place] [facility] HOME D AREA D AREA CARE AGENCY AGENCY CLIENT PER 15 MIN DAY CARE S5100 [facility] 1 ADULT ADULT ADULT; HEALTH HEALTH PER 15 CARE LL CARE LL MINUTES HOME CARE S5108 [facility] TRAINING 1 [place] [facility] HOME D AREA D AREA CARE AGENCY AGENCY CLIENT PER 15 MIN NONEMERGE A0100 [facility] NCY 1 [facility] ENTERPRIS MANAGEMEN ATION; ES T TAXI NONEMERGE A0100 [facility] [facility] 1 [facility] ENTERPRIS MANAGEMEN ATION; ES T TAXI HOME CARE S5108 [facility] TRAINING 1 [place] [facility] HOME D AREA D AREA CARE AGENCY AGENCY CLIENT PER 15 MIN NONEMERGE A0100 [facility] OKY 1 [facility] ENTERPRIS MANAGEMEN ATION; ES T TAXI HOME CARE S5108 [facility] TRAINING 1 [place] [facility] HOME D AREA D AREA CARE AGENCY AGENCY CLIENT PER 15 MIN NONEMERGE A0100 [facility] NCY 1 [facility] ENTERPRIS MANAGEMEN ATION; ES T TAXI HOME CARE S5108 [facility] TRAINING 1 [place] [facility] HOME D AREA D AREA CARE AGENCY AGENCY CLIENT PER 15 MIN NONEMERGE A0100 [facility] NCY 1 [facility] ENTERPRIS MANAGEMEN ATION; ES T TAXI NONEMERGE A0100 [facility] NC[facility] 1 [facility] ENTERPRIS MANAGEMEN ATION; ES T TAXI NONEMERGE A0100 [facility] 1 [facility] ENTERPRIS MANAGEMEN ATION; ES T TAXI DIAB ONLY A5500 [facility] JOEL[facility] FIT [facility] 1 D FOOT D FOOT PREP&SPL AND ANKLE AND ANKLE SHOE MX DNSITY INSRT FOR DIAB A5512 [place] ONLY MX 1 D FOOT D FOOT DNSITY AND ANKLE AND ANKLE INSRT DIR FORMD PRFAB EA HOME CARE S5108 [facility] TRAINING 1 [place] [facility] AREA D AREA CARE AGENCY AGENCY CLIENT PER 15 MIN HOME CARE S5108 [facility] TRAINING 1 [facility] [facility] AREA D AREA CARE AGENCY AGENCY CLIENT PER 15 MIN NONEMERGE A0100 [facility] NCY 1 [facility] ENTERPRIS MANAGEMEN ATION; ES T TAXI NONEMERGE A0100 [facility] NC[facility] 1 [facility] ENTERPRIS MANAGEMEN ATION; ES T TAXI HOME CARE S5108 [facility] TRAINING 1 JOELBERLAN [facility] AREA D AREA CARE AGENCY AGENCY CLIENT PER 15 MIN NONEMERGE A0100 [facility] NCY 1 [facility] ENTERPRIS MANAGEMEN ATION; ES T TAXI NONEMERGE A0100 [facility] 1 [facility] ENTERPRIS MANAGEMEN ATION; ES T TAXI HOME CARE S5108 [facility] TRAINING 1 [place] [facility] AREA D AREA CARE AGENCY AGENCY CLIENT PER 15 MIN NONEMERGE A0100 [facility] NCY 1 [facility] ENTERPRIS MANAGEMEN ATION; ES T TAXI NONEMERGE A0100 [facility] NCY 1 [facility] ENTERPRIS MANAGEMEN ATION; ES T TAXI HOME CARE S5108 [facility] TRAINING 1 [place] [facility] AREA D AREA CARE AGENCY AGENCY CLIENT PER 15 MIN NONEMERGE A0100 [facility] NCY 1 [facility] ENTERPRIS MANAGEMEN ATION; ES T TAXI NONEMERGE A0100 [facility] NC[facility] 1 [facility] ENTERPRIS MANAGEMEN ATION; ES T TAXI HOME CARE S5108 [facility] TRAINING 1 [place] [facility] AREA D AREA CARE AGENCY AGENCY CLIENT PER 15 MIN HOME CARE S5108 [facility] TRAINING 1 [place] [facility] HOME D AREA D AREA CARE AGENCY AGENCY CLIENT PER 15 MIN NONEMERGE A0100 [facility] NCY 1 [facility] ENTERPRIS MANAGEMEN ATION; ES T TAXI NONEMERGE A0100 [facility] NCY 1 [facility] ENTERPRIS MANAGEMEN ATION; ES T TAXI HOME CARE S5108 [facility] TRAINING 1 [place] [facility] HOME D AREA D AREA CARE AGENCY AGENCY CLIENT PER 15 MIN HOME CARE S5108 [facility] TRAINING 1 [place] HOME D AREA D AREA CARE AGENCY AGENCY CLIENT PER 15 MIN NONEMERGE A0100 [facility] NCY 1 [facility] ENTERPRIS MANAGEMEN ATION; ES T TAXI HOME CARE S5108 [facility] TRAINING 1 JOELBERLAN [facility] HOME D AREA D AREA CARE AGENCY AGENCY CLIENT PER 15 MIN ECG 09087 [facility] CO ROUTINE 1 HOSP INC HOSP INC ECG W/LEAST 12 LDS TRCG ONLY W/O I&R NONINVASI 83265 [facility] BALJIT CO VE 1 HOSP INC HOSP INC EAR/PULSE OXIMETRY SINGLE DETER COMPREHEN 69538 [facility] BALJIT MO SIVE 1 HOSP INC HOSP INC METABOLIC PANEL PROTHROMB 04721 [facility] MENDOZA IN TIME 1 HOSP INC HOSP INC COLLECTIO 96558 [facility] N VENOUS 1 HOSP INC HOSP INC BLOOD VENIPUNCT URE BLOOD 14697 [facility] COUNT 1 HOSP INC HOSP INC COMPLETE AUTO&AUTO DIFRNTL WBC RADIOLOGI 76707 [facility] SKEEN C EXAM 1 IMAGING & PAUL CHEST 2 VIEWS INTERVENT FRONTAL&L I ATERAL THROMBOPL 68266 [facility] ASTIN 1 HOSP INC HOSP INC TIME PARTIAL PLASMA/WH OLE BLOOD CREATINE 55997 [facility] S[facility] CO KINASE 1 HOSP INC HOSP INC TOTAL CREATINE 02941 [facility] BALJIT CO KINASE MB 1 HOSP [place] [address] [place] [facility] TROPONIN 1 HOSP INC HOSP INC QUANTITAT TIKA NONEMERGE A0100 [facility] 1 [facility] ENTERPRIS MANAGEMEN ATION; ES T TAXI NONEMERGE A0100 [facility] 1 [facility] ENTERPRIS MANAGEMEN ATION; ES T TAXI HOME CARE S5108 [facility] TRAINING 1 [place] [facility] HOME D AREA D AREA CARE AGENCY AGENCY CLIENT PER 15 MIN NONEMERGE A0100 [facility] 1 [facility] ENTERPRIS MANAGEMEN ATION; ES T TAXI NONEMERGE A0100 [facility] 1 [facility] ENTERPRIS MANAGEMEN ATION; ES T TAXI HOME CARE S5108 [facility] TRAINING 1 [place] [facility] HOME D AREA D AREA CARE AGENCY AGENCY CLIENT PER 15 MIN NONEMERGE A0100 [facility]Y 1 [facility] ENTERPRIS MANAGEMEN ATION; ES T TAXI NONEMERGE A0100 [facility] OKY 1 [facility] ENTERPRIS MANAGEMEN ATION; ES T TAXI HOME CARE S5108 [facility] TRAINING 1 [place] [facility] HOME D AREA D AREA CARE AGENCY AGENCY CLIENT PER 15 MIN HOME CARE S5108 [facility] TRAINING 1 [place] HOME D AREA D AREA CARE AGENCY AGENCY CLIENT PER 15 MIN NONEMERGE A0100 [facility] NCY 1 [facility] ENTERPRIS MANAGEMEN ATION; ES T TAXI NONEMERGE A0100 [facility] 1 [facility] ENTERPRIS MANAGEMEN ATION; ES T TAXI NONEMERGE A0100 [facility] 1 [facility]SP[facility] ENTERPRIS MANAGEMEN ATION; ES T TAXI HOME CARE S5108 [facility] TRAINING 1 [place] [facility] HOME D AREA D AREA CARE AGENCY AGENCY CLIENT PER 15 MIN LIPID 33764 [facility] PANEL 1 O MEDICAL O MEDICAL ASSOC LA ASSOC LA PROTHROMB 69397 [facility] IN TIME 1 O MEDICAL O MEDICAL ASSOC LA ASSOC LA COMPREHEN 60335 [facility] SIVE 1 O MEDICAL O MEDICAL METABOL[place] [address] [facility] THYROID 1 O MEDICAL O MEDICAL STIMULATI ASSOC LA ASSOC LA NG HORMONE TSH HEMOGLOBI 84690 [facility] N 1 O MEDICAL O MEDICAL GLYCOSYLA ASSOC LA ASSOC LA DOTTIE A1C RADEX 96338 [facility] SPINE 1 O MEDICAL JUAN CERVICAL 2 OR 3 ASSOCIATE VIEWS BLOOD 31227 [facility] COUNT 1 O MEDICAL O MEDICAL COMPLETE ASSOC LA ASSOC LA AUTO&AUTO DIFRNTL WBC COLLECTIO 19500 [facility] N VENOUS 1 O MEDICAL O MEDICAL BLOOD ASSOC LA ASSOC LA VENIPUNCT URE NONEMERGE A0100 [facility] 1 [facility] ENTERPRIS MANAGEMEN ATION; ES T TAXI NONEMERGE A0100 [facility] TRANSPORT ENTERPRIS MANAGEMEN ATION; ES T TAXI HOME CARE S5108 [facility] TRAINING 1 [place] [facility] D AREA D AREA CARE AGENCY AGENCY CLIENT PER 15 MIN HOME CARE S5108 [facility] TRAINING 1 [place] HOME D AREA D AREA CARE AGENCY AGENCY CLIENT PER 15 MIN NONEMERGE A0100 [facility] 1 [facility] ENTERPRIS MANAGEMEN ATION; ES T TAXI HOME CARE S5108 [facility] TRAINING 1 [place] [facility] HOME D AREA D AREA CARE AGENCY AGENCY CLIENT PER 15 MIN NONEMERGE A0100 [facility] TRANSP[facility] ENTERPRIS MANAGEMEN ATION; ES T TAXI NONEMERGE A0100 [facility] 1 [facility] ENTERPRIS MANAGEMEN ATION; ES T TAXI HOME CARE S5108 [facility] TRAINING 1 [place] [facility] HOME D AREA D AREA CARE AGENCY AGENCY CLIENT PER 15 MIN NONEMERGE A0100 [facility] 1 [facility] ENTERPRIS MANAGEMEN ATION; ES T TAXI NONEMERGE A0100 [facility]SP[facility] ENTERPRIS MANAGEMEN ATION; [...] SPRING-PO A4258 LIBERTY LIBERTY WERED 1 MEDICAL MACHINE PIE MAKER SUPPLY SUPPLY FOR LANCET EACH DISPBL T4535 PERSONAL PERSONAL LINER/JARED 1 TOUCH TOUCH ELD/GUARD HOME SHELTER CARE /PAD/UNDG OF OF RMNT INCONT EA INCONTINE T4541 PERSONAL PERSONAL NCE 1 TOUCH TOUCH PRODUCT HOME SHELTER CARE DISPOSABL OF OF E UNDPAD LARGE EA NONEMERGE A0100 [facility] 1 [facility] ENTERPRIS MANAGEMEN ATION; ES T TAXI NONEMERGE A0100 [facility] 1 [facility] ENTERPRIS MANAGEMEN ATION; ES T TAXI HOME CARE S5108 [facility] TRAINING 1 [place] [facility] HOME D AREA D AREA CARE AGENCY AGENCY CLIENT PER 15 MIN HOME CARE S5108 [facility] TRAINING 1 [place] HOME D AREA D AREA CARE AGENCY AGENCY CLIENT PER 15 MIN HOME CARE S5108 [facility] TRAINING 1 [place] HOME D AREA D AREA CARE AGENCY AGENCY CLIENT PER 15 MIN HOME CARE S5108 [facility] TRAINING 1 [place] HOME D AREA D AREA CARE AGENCY AGENCY CLIENT PER 15 MIN SKIN TEST [id number] BALJIT SMILEY 1 OSIEL CARTAGENA [facility] SIS DEPARTM DEPARTM INTRADERM AL HOME CARE [id number] [facility] TRAINING 1 [facility] D ARE[facility] D AREA CARE AGENCY AGENCY CLIENT PER 15 MIN HOME CARE S5108 [facility] TRAINING 1 [facility] D AREA D AREA CARE AGENCY AGENCY CLIENT PER 15 MIN HOME CARE S5108 [facility] TRAINING 1 [facility] D AREA D AREA CARE AGENCY AGENCY CLIENT PER 15 MIN HOME CARE S5108 [facility] TRAINING 1 [facility] D AREA D AREA CARE AGENCY AGENCY CLIENT PER 15 MIN HOME CARE S5108 [facility] TRAINING 1 [facility] D AREA D AREA CARE AGENCY AGENCY CLIENT PER 15 MIN HOME CARE S5108 [facility] TRAINING 1 [facility] D AREA D AREA CARE AGENCY AGENCY CLIENT PER 15 MIN HOME CARE S5108 [facility] TRAINING 1 [facility] D AREA D AREA CARE AGENCY AGENCY CLIENT PER 15 MIN HOME CARE S5108 [facility] TRAINING 1 [facility] D [facility] D AREA CARE AGENCY AGENCY CLIENT PER 15 MIN HOME CARE S5108 [facility] TRAINING 1 [facility] D [facility] D AREA CARE AGENCY AGENCY CLIENT PER 15 MIN PROTHROMB [id number] [facility] IN TIME 1 O MEDICAL O MEDICAL ASSOC LA ASSOC LA HOME CARE S5108 [facility] TRAINING 1 [facility] D AREA D AREA CARE AGENCY AGENCY CLIENT PER 15 MIN [facility]EMERGE A0100 [facility] ENTERPRIS MANAGEMEN ATION; ES T TAXI NONEMERGE A0100 [facility] TRANSP[facility] ENTERPRIS MANAGEMEN ATION; ES T TAXI NONEMERGE A0100 [facility] TRANSPORT ENTERPRIS MANAGEMEN ATION; ES T TAXI NONEMERGE A0100 [facility] 1 [facility]ANS[facility] HEALTH TRANSPORT ENTERPRIS MANAGEMEN ATION; ES T TAXI HOME CARE [id number] [facility] TRAINING 1 [facility] D AREA D AREA CARE AGENCY AGENCY CLIENT PER 15 MIN BLOOD 34410 [facility] CO COUNT 1 [facility] COMPLETE AUTO&AUTO DIFRNTL WBC COLLECTIO 13745 [facility] N VENOUS 1 [facility] [place] [address] [facility] LIPASE [address] PELVIS [id number] [facility] 1 [facility] HOSP INC W/[place] [address] [facility]ENN[facility] ABDOMEN & 1 IMAGING & PELVIS W/CONTRAS INTERVENT T I MATERIAL RADEX 17038 [facility] JENNIFER ABDOMEN 1 1 IMAGING & [place] [id number] [facility] AMYLASE 1 HOSP INC HOSP INC RADEX 69580 [facility] ABDOMEN 1 [facility]P INC H[facility]P INC COMPL W/DCBTS&/ [place] [address] [facility] ABDOMEN 1 HOSP INC HOSP INC W/CONTRAS T MATERIAL NONINVASI 93757 [facility] VE 1 HOSP INC H[facility] INC EAR/PULSE OXIMETRY SINGLE DETER COMPREHEN 93618 [facility] SIVE 1 [facility] METABOLIC PANEL URNLS DIP 74990 [facility] 1 HOSP INC H[facility]P [facility] STICK/TAB LET RGNT AUTO W/O MICROSCOP Y ECG [id number] [facility] [facility] ROUTINE 1 HOSP INC HOSP INC ECG W/LEAST 12 LDS TRCG ONLY W/O I&R AMBULANCE [id number] [facility] SERVICE 1 EMS EMS BLS EMERGENCY TRANSPORT GROUND [id number] [facility] MILEAGE 1 EMS EMS PER STATUTE MILE NONEMERGE A0100 [facility] EN[facility]PR[facility] MANAGEMEN ATION; ES T [facility] S5108 [facility] TRA[facility] 1 [facility] CARE AGENCY AGENCY CLIENT PER 15 MIN HOME CARE S5108 [facility] CARE AGENCY AGENCY CLIENT PER 15 MIN NONEMERGE A0100 [facility] 1 [facility]SP[facility] ENTERPRIS MANAGEMEN ATION; ES T [facility] NONEMERGE A0100 [facility] TRANSP[facility] ENTERPRIS MANAGEMEN ATION; ES T [facility] NONEMERGE A0100 [facility]SP[facility] ENTERPRIS MANAGEMEN ATION; ES T [facility] S5108 [facility] TRAINING 1 [facility] AGENCY AGENCY CLIENT PER 15 MIN HOME CARE S5108 [facility] TRAINING 1 [facility] CARE AGENCY AGENCY CLIENT PER 15 MIN HOME CARE S5108 [facility] TRAINING 1 [facility] CARE AGENCY AGENCY CLIENT PER 15 MIN NONEMERGE A0100 [facility] 1 [facility] TRANSP[facility] ENTERPRIS MANAGEMEN ATION; ES T [facility] S5108 [facility] TRAINING 1 [facility] CARE AGENCY AGENCY CLIENT PER 15 MIN HOME CARE S5108 [facility] TRAINING 1 [facility] AREA CARE AGENCY AGENCY CLIENT PER 15 MIN HOME CARE S5108 [facility] TRAINING 1 [facility] AREA CARE AGENCY AGENCY CLIENT PER 15 MIN NONEMERGE A0100 [facility] 1 [facility] TRANSPORT ENTERPRIS MANAGEMEN ATION; ES T [facility]I NONEMERGE A0100 [facility] 1 [facility] TRANSPORT ENTERPRIS MANAGEMEN ATION; ES T [facility] S5108 [facility] TRAINING 1 [facility] CARE AGENCY AGENCY CLIENT PER 15 MIN NONEMERGE A0100 [facility] 1 [facility]SP[facility] ENTERPRIS MANAGEMEN ATION; ES T [facility] NONEMERGE A0100 [facility] 1 [facility]SPORT ENTERPRIS MANAGEMEN ATION; ES T [facility] S5108 [facility] TRAINING 1 [facility] CARE AGENCY AGENCY CLIENT PER 15 MIN NONEMERGE A0100 [facility] 1 [facility]SPORT ENTERPRIS MANAGEMEN ATION; ES T [facility]I NONEMERGE A0100 [facility] 0 [facility] TRANSPORT ENTERPRIS MANAGEMEN ATION; ES T [facility] S5108 [facility] TRAINING 0 [facility] CARE AGENCY AGENCY CLIENT PER 15 MIN LIPID 69461 [facility] PANEL 0 O MEDICAL O MED[facility] ASSOC LA ASSOC LA COLLECTIO 74141 [facility] N VENOUS 0 O MEDICAL O MEDICAL BLOOD ASSOC LA ASSOC LA VENIPUNCT URE PROTHROMB 76299 [facility] O MEDICAL O MEDICAL ASSOC LA ASSOC LA NONEMERGE A0100 [facility] 0 [facility]SP[facility] ENTERPRIS MANAGEMEN ATION; ES T [facility] NONEMERGE A0100 [facility] 0 [facility]SP[facility] ENTERPRIS MANAGEMEN ATION; [facility] S5108 [facility] TRAINING 0 [facility] AREA CARE AGENCY AGENCY CLIENT PER 15 MIN HOME CARE S5108 [facility] TRAINING 0 [facility] D AREA CARE AGENCY AGENCY CLIENT PER 15 MIN HOME CARE S5108 [facility] TRAINING 0 [facility] D AREA CARE AGENCY AGENCY CLIENT PER 15 MIN NONEMERGE A0100 [facility] 0 [facility]SP[facility] ENTERPRIS MANAGEMEN ATION; ES T [facility]I NONEMERGE A0100 [facility] 0 [facility] TRANSPORT ENTERPRIS MANAGEMEN ATION; ES T [facility]I NONEMERGE A0100 [facility] 0 [facility]SP[facility] ENTERPRIS MANAGEMEN ATION; ES T [facility] PROTHROMB 08104 [facility] O [facility] LA BLOOD 92111 [facility] COUNT 0 O MEDICAL O MEDICAL COMPLETE ASSOC LA ASSOC LA AUTO&AUTO DIFRNTL WBC COLLECTIO 74259 [facility] N VENOUS 0 O MEDICAL O MEDICAL BLOOD ASSOC LA ASSOC LA VENIPUNCT URE HEMOGLOBI 10954 [facility] N 0 O MEDICAL O MEDICAL GLYCOSYLA ASSOC LA ASSOC LA DOTTIE A1C COMPREHEN 80730 [facility] SIVE 0 O MEDICAL O MEDICAL METABOLIC ASSOC LA ASSOC LA PANEL NONEMERGE A0100 [facility] 0 [facility]SP[facility] ENTERPRIS MANAGEMEN ATION; ES [facility] S5108 [facility] TRAINING 0 [facility] ARE[facility] CARE AGENCY AGENCY CLIENT PER 15 MIN NONEMERGE A0100 [facility] 0 [facility]SP[facility] ENTERPRIS MANAGEMEN ATION; ES T [facility] S5108 [facility] TRAINING 0 [facility] D AREA CARE AGENCY AGENCY CLIENT PER 15 MIN NONEMERGE A0100 [facility] 0 [facility]SP[facility] ENTERPRIS MANAGEMEN ATION; ES T [facility]I NONEMERGE A0100 [facility] 0 [facility]SP[facility] ENTERPRIS MANAGEMEN ATION; ES T [facility]I NONEMERGE A0100 [facility] 0 [facility] TRANSPORT ENTERPRIS MANAGEMEN ATION; ES T [facility]I NONEMERGE A0100 [facility] 0 [facility] TRANSPORT ENTERPRIS MANAGEMEN ATION; ES T TAXI NONEMERGE A0100 [facility] 0 [facility]SP[facility] ENTERPRIS MANAGEMEN ATION; [facility] S5108 [facility] TRAINING 0 [facility] D AREA CARE AGENCY AGENCY CLIENT PER 15 MIN NONEMERGE A0100 [facility] 0 [facility]SPORT ENTERPRIS MANAGEMEN ATION; ES T [facility] NONEMERGE A0100 [facility] 0 [facility]SP[facility] ENTERPRIS MANAGEMEN ATION; ES [facility] S5108 [facility] TRAINING 0 [facility]A D AREA CARE AGENCY AGENCY CLIENT PER 15 MIN NONEMERGE A0100 [facility] 0 [facility]SP[facility] ENTERPRIS MANAGEMEN ATION; ES T [facility]I NONEMERGE A0100 [facility] 0 [facility]SP[facility] ENTERPRIS MANAGEMEN ATION; ES [facility] S5108 [facility] TRAINING 0 [facility] D AREA CARE AGENCY AGENCY CLIENT PER 15 MIN NONEMERGE A0100 [facility] 0 [facility]SP[facility] ENTERPRIS MANAGEMEN ATION; ES T [facility]I NONEMERGE A0100 [facility] 0 [facility]SP[facility] ENTERPRIS MANAGEMEN ATION; ES T [facility] S5108 [facility] TRAINING 0 [facility] ARE[facility] D AREA CARE AGENCY AGENCY CLIENT PER 15 MIN HOME CARE S5108 [facility] TRAINING 0 [facility] AREA D AREA CARE AGENCY AGENCY CLIENT PER 15 MIN HOME CARE S5108 [facility] TRAINING 0 [facility] AREA D AREA CARE AGENCY AGENC[facility] CLIENT PER 15 MIN HOME CARE S5108 [facility] TRAINING 0 [facility] AREA D AREA CARE AGENCY AGENCY CLIENT PER 15 MIN NONEMERGE A0100 [facility] 0 [facility]SP[facility] ENTERPRIS MANAGEMEN ATION; ES T [facility] NONEMERGE A0100 [facility] 0 [facility] TRANSPORT ENTERPRIS MANAGEMEN ATION; [facility] S5108 [facility] TRAINING 0 [facility] AREA D AREA CARE AGENCY AGENCY CLIENT PER 15 MIN INCONTINE T4541 PERSONAL PERSONAL NCE 0 TOUCH TOUCH PRODUCT HOME SHELTER CARE DISPOSABL OF OF E UNDPAD LARGE EA DISPBL [id number] PERSONAL PERSONAL LINER/JARED 0 TOUCH TOUCH ELD/GUARD HOME SHELTER CARE /PAD/UNDG OF OF RMNT INCONT EA NONEMERGE A0100 [facility]SP[facility] ENTERPRIS MANAGEMEN ATION; ES T [facility]AXI NONEMERGE A0100 [facility] TRANSPORT ENTERPRIS MANAGEMEN ATION; ES T [facility] S5108 [facility] TRAINING 0 [facility] D AREA CARE AGENCY AGENCY CLIENT PER 15 MIN HOME CARE S5108 [facility] TRAINING 0 [facility] D AREA D AREA CARE AGENCY AGENCY CLIENT PER 15 MIN NONEMERGE A0100 [facility] 0 [facility]SPORT ENTERPRIS MANAGEMEN ATION; ES T TAXI NONEMERGE A0100 [facility] 0 [facility] TRANSPORT ENTERPRIS MANAGEMEN ATION; ES T [facility]I NONEMERGE A0100 [facility] 0 [facility]SPORT ENTERPRIS MANAGEMEN ATION; ES T [facility] S5108 [facility] TRAINING 0 [facility] D AREA D AREA CARE AGENCY AGENCY CLIENT PER 15 MIN HOSPITAL [facility] DISCHAR[facility] 0 D [facility] MANAGEMEN PHYSICIA T 30 MIN/< SBSQ 25625 [facility] 0 D [facility] 25 PHYSICIA MINUTES CV STRS 10097 BARB BARB TST 0 PAT PAT XERS&/OR RX CONT ECG W/O I&R NONINVASI 42607 [facility] VE 0 HOSP INC HOSP INC EAR/PULSE OXIMETRY SINGLE DETER GROUND A0425 [facility] MILEAGE 0 EMS EMS PER STATUTE MILE OBSERVATI 43150 [facility] LANGFELS ON/INPATI 0 [facility] S CARE 55 MINUTES COLLECTIO 83818 [facility] N VENOUS 0 HOSP INC HOSP INC BLOOD VENIPUNCT URE BASIC 49370 [facility] METABOLIC 0 HOSP INC HOSP INC PANEL CALCIUM TOTAL DUPLEX 30868 [facility] SCAN 0 HOSP INC HOSP INC EXTRACRAN IAL ART COMPL BI STUDY BLOOD 90568 [facility] COUNT 0 HOSP INC HOSP INC COMPLETE AUTO&AUTO DIFRNTL WBC PROTHROMB 52944 [facility] IN TIME 0 HOSP INC HOSP INC CREATINE 24909 [facility] KINASE MB 0 [facility] [place] [address] [facility] THYROID 0 HOSP INC HOSP INC STIMULATI NG HORMONE TSH CREATINE 97808 [facility] KINASE 0 [place] [address] [facility] TROPONIN 0 HOSP INC HOSP INC QUANTITAT TIKA INITIAL 62592 [facility] 0 D [facility] 70 PHYSICIA MINUTES AMB A0427 [facility] SERVICE 0 EMS EMS ALS EMERGENCY TRANSPORT LEVEL 1 NONEMERGE A0100 [facility] ENTERPRIS [place]NA[place]; [place] [address] [facility] TROPONIN 0 HOSP INC HOSP INC QUANTITAT TIKA CREATINE 34726 [facility] KINASE 0 HOSP INC HOSP INC TOTAL CREATINE 31510 [facility] K[place]ASE MB 0 HOSP INC HOSP INC FRACTION ONLY THROMBOPL 43627 [facility] ASTIN 0 HOSP INC HOSP INC TIME PARTIAL PLASMA/WH OLE BLOOD RADIOLOGI 88504 [facility] C EXAM 0 HOSP INC HOSP INC CHEST 2 VIEWS FRONTAL&[place] [address] [facility] HEAD/BRAI 0 HOSP INC HOSP INC N W/O CONTRAST MATERIAL PROTHROMB 09315 [facility] IN TIME 0 HOSP INC HOSP INC ECG 91934 [facility] ROUTINE 0 [facility]OVER[facility] ECG W/LEAST CORPORATI 12 LDS I&R ONLY BLOOD 79346 [facility] COUNT 0 HOSP INC HOSP INC COMPLETE AUTO&AUTO DIFRNTL WBC CRITICAL 72261 [facility] CARE 0 COVERAGE ILL/INJUR ED CORPORATI PATIENT INIT 30-74 MIN COLLECTIO 04098 [facility] N VENOUS 0 HOSP INC HOSP INC BLOOD VENIPUNCT URE COMPREHEN 00763 [facility] SIVE 0 HOSP INC HOSP INC METABOLIC PANEL NONINVASI 71546 [facility] VE 0 HOSP INC HOSP INC EAR/PULSE OXIMETRY SINGLE DETER ECHO 91410 [facility] TTHRC R-T 0 HOSP INC HOSP INC 2D W/WOM-MOD E COMPL SPEC&COLR D ECG 59549 [facility] ROUTINE 0 HOSP INC HOSP INC ECG W/LEAST 12 LDS TRCG ONLY W/O I&R THER 02607 [facility] PROPH/DX 0 HOSP INC HOSP INC NJX IV PUSH SINGLE/1S T SBST/DRUG NONEMERGE A0100 [facility] ENTERPRIS MANAGEMEN ATION; ES T [facility] S5108 [facility] TRAINING 0 [facility] D AREA CARE AGENCY AGENCY CLIENT PER 15 MIN NONEMERGE A0100 [facility] 0 [facility]SP[facility] ENTERPRIS MANAGEMEN ATION; ES T [facility] NONEMERGE A0100 [facility] 0 [facility]SP[facility] ENTERPRIS MANAGEMEN ATION; ES T [facility] S5108 [facility] TRAINING 0 [facility] D AREA CARE AGENCY AGENCY CLIENT PER 15 MIN HOME CARE S5108 [facility] TRAINING 0 [facility] D AREA CARE AGENCY AGENCY CLIENT PER 15 MIN NONEMERGE A0100 [facility] 0 [facility] ENTERPRIS MANAGEMEN ATION; ES T [facility]I NONEMERGE A0100 [facility] 0 [facility]SP[facility] ENTERPRIS MANAGEMEN ATION; ES T [facility]I NONEMERGE A0100 [facility] 0 [facility]SP[facility] ENTERPRIS MANAGEMEN ATION; ES T [facility] S5108 [facility] TRAINING 0 [facility] D AREA CARE AGENCY AGENCY CLIENT PER 15 MIN HOME CARE S5108 [facility] TRAINING 0 [facility] D AREA CARE AGENCY AGENCY CLIENT PER 15 MIN HOME CARE S5108 [facility] TRAINING 0 [facility] D AREA CARE AGENCY AGENCY CLIENT PER 15 MIN HOME CARE S5108 [facility] TRAINING 0 [facility] D AREA CARE AGENCY AGENCY CLIENT PER 15 MIN NONEMERGE A0100 [facility] 0 [facility]SP[facility] ENTERPRIS MANAGEMEN ATION; ES T [facility]I NONEMERGE A0100 [facility] 0 [facility]SP[facility] ENTERPRIS MANAGEMEN ATION; ES T [facility]I NONEMERGE A0100 [facility] 0 [facility]SP[facility] ENTERPRIS MANAGEMEN ATION; ES T [facility] S5108 [facility] TRAINING 0 [facility] AREA CARE AGENCY AGENCY CLIENT PER 15 MIN PROTHROMB 82159 [facility] IN TIME 0 O MEDICAL O MEDICAL ASSOC LA ASSOC LA NONEMERGE A0100 [facility] 0 [facility] ENTERPRIS MANAGEMEN ATION; ES T [facility] S5108 [facility] TRAINING 0 [facility] AREA CARE AGENCY AGENCY CLIENT PER 15 MIN NONEMERGE A0100 [facility] 0 [facility]SP[facility] ENTERPRIS MANAGEMEN ATION; ES T [facility]I NONEMERGE A0100 [facility] 0 [facility]SP[facility] ENTERPRIS MANAGEMEN ATION; ES T [facility] S5108 [facility] TRAINING 0 [facility] D AREA CARE AGENCY AGENCY CLIENT PER 15 MIN NONEMERGE A0100 [facility] 0 [facility]SP[facility] ENTERPRIS MANAGEMEN ATION; ES T [facility]I NONEMERGE A0100 [facility] 0 [facility]SP[facility] ENTERPRIS MANAGEMEN ATION; ES T [facility] S5108 [facility] TRAINING 0 [facility] AREA CARE AGENCY AGENCY CLIENT PER 15 MIN HOME CARE S5108 [facility] TRAINING 0 [facility] D AREA CARE AGENCY AGENCY CLIENT PER 15 MIN NONEMERGE A0100 [facility] 0 [facility] ENTERPRIS MANAGEMEN ATION; ES T [facility]I NONEMERGE A0100 [facility] 0 [facility]SP[facility] ENTERPRIS MANAGEMEN ATION; ES T [facility] S5108 [facility] TRAINING 0 [facility] D AREA CARE AGENCY AGENCY CLIENT PER 15 MIN NONEMERGE A0100 [facility] 0 [facility]SP[facility] ENTERPRIS MANAGEMEN ATION; ES T [facility]I NONEMERGE A0100 [facility] 0 [facility]SP[facility] ENTERPRIS MANAGEMEN ATION; ES T [facility] S5108 [facility] TRAINING 0 [facility] D AREA CARE AGENCY AGENCY CLIENT PER 15 MIN NONEMERGE A0100 [facility] 0 [facility]SP[facility] ENTERPRIS MANAGEMEN ATION; ES T [facility]I NONEMERGE A0100 [facility] 0 [facility]SP[facility] ENTERPRIS MANAGEMEN ATION; ES T [facility] S5108 [facility] TRAINING 0 [facility] D AREA CARE AGENCY AGENCY CLIENT PER 15 MIN NONEMERGE A0100 [facility] 0 [facility]SP[facility] ENTERPRIS MANAGEMEN ATION; ES T [facility]I NONEMERGE A0100 [facility] 0 [facility]SP[facility] ENTERPRIS MANAGEMEN ATION; ES T [facility] S5108 [facility] TRAINING 0 [facility] D AREA CARE AGENCY AGENCY CLIENT PER 15 MIN NONEMERGE A0100 [facility] 0 [facility]SP[facility] ENTERPRIS MANAGEMEN ATION; ES T TAXI NONEMERGE A0100 [facility] 0 [facility] TRANSPORT ENTERPRIS MANAGEMEN ATION; ES T TAXI NONEMERGE A0100 [facility] 0 [facility]SPORT ENTERPRIS MANAGEMEN ATION; ES T [facility] S5108 [facility] TRAINING 0 [facility] AREA CARE AGENCY AGENCY CLIENT PER 15 MIN NONEMERGE A0100 [facility] 0 [facility]SP[facility] ENTERPRIS MANAGEMEN ATION; ES T TAXI NONEMERGE A0100 [facility] 0 [facility]SP[facility] ENTERPRIS MANAGEMEN ATION; ES T [facility] S5108 [facility] TRAINING 0 [facility] D AREA CARE AGENCY AGENCY CLIENT PER 15 MIN HOME CARE S5108 [facility] TRAINING 0 [facility] D AREA CARE AGENCY AGENCY CLIENT PER 15 MIN NONEMERGE A0100 [facility] 0 [facility]SP[facility] ENTERPRIS MANAGEMEN ATION; ES T [facility] S5108 [facility] TRAINING 0 [facility] D AREA CARE AGENCY AGENCY CLIENT PER 15 MIN NONEMERGE A0100 [facility] 0 [facility] ENTERPRIS MANAGEMEN ATION; ES T [facility] PHYSICAL 07956 [facility] THERAPY 0 O PT SERV EVALUATIO N THERAPEUT 39714 [facility] IC PX 1/> 0 O PT SERV AREAS EACH 15 MIN EXERCISES APPL 61961 [facility] MODALITY 0 O PT SERV 1/> AREAS TRACTION MECHANICA L APPL 66326 [facility] MODALITY 0 O PT SERV 1/> AREAS ULTRASOUN D EA 15 MIN PROTHROMB 30145 LONG [facility]VES IN TIME 0 O MEDICAL O MEDICAL ASSOC LA ASSOC LA NONEMERGE A0100 [facility] 0 [facility] ENTERPRIS MANAGEMEN ATION; ES T [facility] S5108 [facility] TRAINING 0 [facility] D AREA CARE AGENCY AGENCY CLIENT PER 15 MIN PROTHROMB 23729 [facility] IN TIME 0 HOSP INC HOSP INC COMPREHEN 13596 [facility] SIVE 0 HOSP INC HOSP INC METABOLIC PANEL URNLS DIP 35434 [facility] 0 HOSP INC HOSP INC STICK/TAB LET RGNT AUTO W/O MICROSCOP Y ECG 63321 [facility] ROUTINE 0 HOSP INC HOSP INC ECG W/LEAST 12 LDS TRCG ONLY W/O I&R AMBULANCE A0429 [facility] SERVICE 0 EMS EMS BLS EMERGENCY TRANSPORT GROUND A0425 [facility] MILEAGE 0 EMS [place] [address] [facility] TROPONIN 0 HOSP INC HOSP INC QUANTITAT TIKA CREATINE 87309 [facility] KINASE MB 0 HOSP INC HOSP INC FRACTION ONLY RADIOLOGI 42578 [facility] C EXAM 0 HOSP INC HOSP INC CHEST 2 VIEWS FRONTAL&L ATERAL THROMBOPL 79930 [facility] ASTIN 0 HOSP INC HOSP INC TIME PARTIAL PLASMA/WH OLE BLOOD CREATINE 83891 [facility] KINASE 0 HOSP INC HOSP INC TOTAL BLOOD 08512 [facility] COUNT 0 HOSP INC HOSP INC COMPLETE AUTO&AUTO DIFRNTL WBC COLLECTIO 30683 [facility] N VENOUS 0 HOSP INC HOSP INC BLOOD VENIPUNCT URE ECG 20754 EMERG[facility] JENNIFER ROUTINE 0 COVERAGE ECG [...] SPRING-PO A4258 [facility] WERED 0 MEDICAL MACHINE PIE MAKER SUPPLY SUPPLY FOR LANCET EACH HOME CARE S5108 [facility] TRAINING 0 [facility] D AREA CARE AGENCY AGENCY CLIENT PER 15 MIN NONEMERGE A0100 [facility] 0 [facility]SP[facility] ENTERPRIS MANAGEMEN ATION; ES T [facility] NONEMERGE A0100 [facility] 0 [facility]SP[facility] ENTERPRIS MANAGEMEN ATION; ES T [facility] S5108 [facility] TRAINING 0 [facility] D AREA CARE AGENCY AGENCY CLIENT PER 15 MIN NONEMERGE A0100 [facility] 0 [facility] TRANSPORT ENTERPRIS MANAGEMEN ATION; ES T [facility]I NONEMERGE A0100 [facility] 0 [facility] TRANSPORT ENTERPRIS MANAGEMEN ATION; ES T [facility] S5108 [facility] TRAINING 0 [facility] D AREA CARE AGENCY AGENCY CLIENT PER 15 MIN HOME CARE S5108 [facility] TRAINING 0 [facility] D AREA CARE AGENCY AGENCY CLIENT PER 15 MIN NONEMERGE A0100 [facility] 0 [facility]SP[facility] ENTERPRIS MANAGEMEN ATION; ES T [facility] NONEMERGE A0100 [facility] 0 [facility] TRANSPORT ENTERPRIS MANAGEMEN ATION; ES T [facility] NONEMERGE A0100 [facility] 0 [facility] TRANSPORT ENTERPRIS MANAGEMEN ATION; ES T [place] NONEMERGE A0100 [facility] NC[facility] 0 TRANS[facility] HEALTH TRANSPORT ENTERPRIS MANAGEMEN ATION; ES T [facility] [id number] [facility] 0 [facility] D AREA CARE AGENCY AGENCY CLIENT PER 15 MIN HOME CARE S5108 WILLAMS WILLAMS TRAINING 0 [facility] D AREA CARE AGENCY AGENCY CLIENT PER 15 MIN NONEMERGE A0100 [facility] NCY 0 TRANS[facility] HEALTH TRANSPORT ENTERPRIS MANAGEMEN ATION; ES T [place] NONEMERGE A0100 [facility] EN[facility] NCY 0 TRANS[facility] HEALTH TRANSPORT ENTERPRIS MANAGEMEN ATION; ES T [facility] S5108 WILL[facility] WILLAMS TRAINING 0 [facility] D AREA CARE AGENCY AGENCY CLIENT PER 15 MIN NONEMERGE A0100 [facility] ENGL[facility] NCY 0 TRANS[facility] HEALTH TRANSPORT ENTERPRIS MANAGEMEN ATION; ES T [facility] S5108 IWLLAMS WILLAMS TRAINING 0 [facility] D AREA CARE AGENCY ON AGENCY ON CLIENT AGING AGING PER 15 MIN HOME CARE S5108 WILLAMS WILLAMS TRAINING 0 [facility] D AREA D AREA CARE AGENCY ON AGENCY ON CLIENT AGING AGING PER 15 MIN NONEMERGE A0100 [facility] NCY 0 TRANS[facility] HEALTH TRANSPORT ENTERPRIS MANAGEMEN ATION; ES T [place] NONEMERGE A0100 [facility] NCY 0 TRANS[facility] HEALTH TRANSPORT ENTERPRIS MANAGEMEN ATION; ES T [place] NONEMERGE A0100 [facility] NC[facility] 0 TRANS[facility] HEALTH TRANSPORT ENTERPRIS MANAGEMEN [...] AGING PER 15 MIN NONEMERGE A0100 [facility] NCY 0 TRANS[facility] HEALTH TRANSPORT ENTERPRIS MANAGEMEN ATION; ES T [place] NONEMERGE A0100 [facility] NCY 0 TRANS[facility] HEALTH TRANSPORT ENTERPRIS MANAGEMEN ATION; ES T [facility] S5108 WILLAMS WILLAMS TRAINING 0 [facility] HANA D AREA D AREA CARE AGENCY ON AGENCY ON CLIENT AGING AGING PER 15 MIN NONEMERGE A0100 [facility] NCY 0 TR[facility] TRANSPORT ENTERPRIS MANAGEMEN ATION; ES T [facility] S5108 WILLAMS WILLAMS TRAINING 0 [facility] D AREA CARE AGENCY ON AGENCY ON CLIENT AGING AGING PER 15 MIN NONEMERGE A0100 [facility] EN[facility] NCY 0 [facility] TRANSPORT ENTERPRIS MANAGEMEN ATION; ES T [facility] PROTHROMB [id number] LONG ALVES IN TIME 0 O MEDICAL O MEDICAL ASSOC LA ASSOC LA COLLECTIO [id number] LONG ALVES N VENOUS 0 O MEDICAL O MEDICAL BLOOD ASSOC LA ASSOC LA VENIPUNCT URE BLOOD 92332 LONG ALVES COUNT 0 O MEDICAL O MEDICAL COMPLETE ASSOC LA ASSOC LA AUTO&AUTO DIFRNTL WBC HEMOGLOBI [id number] LONG ALVES N 0 O MEDICAL O MEDICAL GLYCOSYLA ASSOC LA ASSOC LA DOTTIE A1C COMPREHEN [id number] LONG ALVES SIVE 0 O MEDICAL O MEDICAL METABOLIC ASSOC LA ASSOC LA PANEL NONEMERGE A0100 [facility] NCY 0 [facility] TRANSPORT ENTERPRIS MANAGEMEN ATION; ES T [facility] S5108 WILLAMS WILLAMS TRAINING 0 [facility] D AREA D AREA CARE AGENCY ON AGENCY ON CLIENT AGING AGING PER 15 MIN SEAT [id number] [place] ATTACHMEN 0 DRUG #1 DRUG #1 T WALKER NONEMERGE A0100 [facility] ENGL[place] NCY 0 [facility] TRANSPORT ENTERPRIS MANAGEMEN ATION; ES T [place] WALKER [id number] [place] FOLDING 0 DRUG #1 DRUG #1 WHEELED ADJUSTABL E/FIXED HEIGHT NONEMERGE A0100 [facility] EN[facility] NCY 0 [facility] TRANSPORT ENTERPRIS MANAGEMEN ATION; ES T [facility] S5108 WILLAMS WILLAMS TRAINING 0 [facility] D AREA D AREA CARE AGENCY ON AGENCY ON CLIENT AGING AGING PER 15 MIN MISC TX [id number] WILLAMS WILLAMS ITEMS & 0 [facility] SPL D AREA D AREA RETAIL AGENCY ON AGENCY ON PURCHASE AGING AGING NOC NONEMERGE A0100 [facility] EN[facility] NCY 0 [facility] ENTERPRIS MANAGEMEN ATION; ES T TAXI NONEMERGE A0100 [facility] NCY 0 [facility] ENTERPRIS MANAGEMEN ATION; ES T TAXI NONEMERGE A0100 [facility] ENGL[facility] NCY 0 [facility] ENTERPRIS MANAGEMEN ATION; ES T TAXI HOME CARE S5108 [facility] TRAINING 0 [facility] AREA D AREA CARE AGENCY ON AGENCY ON CLIENT AGING AGING PER 15 MIN NONEMERGE A0100 [facility] ENGL[facility] NCY 0 [facility] ENTERPRIS MANAGEMEN ATION; ES T TAXI NONEMERGE A0100 [facility] ENGL[facility] NCY 0 [facility] ENTERPRIS MANAGEMEN ATION; ES T [facility] HOME CARE S5108 [facility] WILLAMS TRAINING 0 [facility] D AREA D AREA CARE AGENCY ON AGENCY ON CLIENT AGING AGING PER 15 MIN NONEMERGE A0100 [place] ENGLISH NCY 0 [facility] ENTERPRIS MANAGEMEN ATION; ES T [facility] HOME CARE S5108 [facility] WILL[facility] TRAINING 0 [facility] D AREA CARE AGENCY ON AGENCY ON CLIENT AGING AGING PER 15 MIN HOME CARE S5108 [facility] TRA[facility] 0 [facility] AGENCY ON AGENCY ON CLIENT AGING AGING PER 15 MIN NONEMERGE A0100 [facility] ENGLISH NCY 0 [facility] ENTERPRIS MANAGEMEN ATION; ES T TAXI NONEMERGE A0100 [place] ENGLISH NCY 0 [facility] ENTERPRIS MANAGEMEN ATION; ES T TAXI NONEMERGE A0100 [place] ENGL[facility] NCY 0 [facility] ENTERPRIS MANAGEMEN ATION; ES T [facility] HOME CARE S5108 WILL[facility] WILLAMS TRAINING 0 [facility] AREA D AREA CARE AGENCY ON AGENCY ON CLIENT AGING AGING PER 15 MIN NONEMERGE A0100 [place] ENGLISH NCY 0 [facility] ENTERPRIS MANAGEMEN ATION; ES T TAXI NONEMERGE A0100 [place] ENGLISH NCY 0 [facility] ENTERPRIS MANAGEMEN ATION; ES T TAXI NONEMERGE A0100 [place] ENGL[facility] NCY 0 [facility] ENTERPRIS MANAGEMEN ATION; ES T [facility] HOME CARE S5108 [facility] WILLAMS TRAINING 0 [facility] AREA D AREA CARE AGENCY ON AGENCY ON CLIENT AGING AGING PER 15 MIN NONEMERGE A0100 [place] ENGLISH NCY 0 [facility] ENTERPRIS MANAGEMEN ATION; ES T TAXI NONEMERGE A0100 [place] ENGL[place] NCY 0 [facility] ENTERPRIS MANAGEMEN [...] PER 15 MIN AMB [id number] [facility] SERVICE 0 EMS EMS ALS EMERGENCY TRANSPORT LEVEL 1 NONEMERGE A0100 [place] ENGLISH NCY 0 [facility] ENTERPRIS MANAGEMEN ATION; ES T TAXI ECG 83839 [facility] ROUTINE 0 [facility] INC HOSP INC ECG W/LEAST 12 LDS TRCG ONLY W/O I&R COMPREHEN 63020 [facility] SIVE 0 [facility] INC [facility]OSP INC METABOLIC PANEL NONINVASI 86094 [facility] VE 0 [facility] EAR/PULSE OXIMETRY SINGLE DETER PROTHROMB 08481 [facility] IN TIME 0 [facility]P INC HOSP INC GROUND A0425 [facility] MILEAGE 0 EMS EMS PER STATUTE MILE THROMBOPL 68864 [facility] ASTIN 0 HOSP INC HOSP INC TIME PARTIAL PLASMA/WH OLE BLOOD RADIOLOGI 42744 [facility] & PAUL EXAMINATI ON CHEST INTERVENT SINGLE I VIEW FRONTAL CREATINE 60255 [facility] KINASE MB 0 HOSP INC HOSP INC FRACTION ONLY CREATINE 19082 [facility] KINASE 0 [place] [address] [facility] TROPONIN 0 HOSP INC HOSP INC QUANTITAT TIKA BLOOD 19665 [facility] COUNT 0 HOSP INC HOSP INC COMPLETE AUTO&AUTO DIFRNTL WBC COLLECTIO 55787 [facility] N VENOUS 0 HOSP INC HOSP INC BLOOD VENIPUNCT URE RADIOLOGI 65581 [facility] C 0 IMAGING & PAUL EXAMINATI ON KNEE INTERVENT 1/2 VIEWS I RADIOLOGI 67206 [facility] C EXAM 0 HOSP [facility] HOSP INC KNEE COMPLETE 4/MORE VIEWS NONINVASI 95388 [facility] VE 0 HOSP INC HOSP INC EAR/PULSE OXIMETRY SINGLE DETER NONEMERGE A0100 [facility] NCY 0 [facility] ENTERPRIS MANAGEMEN ATION; ES T TAXI NONEMERGE A0100 [place] ENGLISH NCY 0 [facility] ENTERPRIS MANAGEMEN [...] AGING PER 15 MIN NONEMERGE A0100 [place] ENGLISH NCY 0 [facility] ENTERPRIS MANAGEMEN ATION; ES T [facility] C[facility] S5108 WILL[facility] WILLAMS TRAINING 0 [facility] AREA D AREA CARE AGENCY ON AGENCY ON CLIENT AGING AGING PER 15 MIN NONEMERGE A0100 [place] ENGLISH NCY 0 [facility] ENTERPRIS MANAGEMEN ATION; ES T TAXI NONEMERGE A0100 [place] ENGLISH NCY 0 [facility] ENTERPRIS MANAGEMEN ATION; ES T [facility] HOME CARE S5108 [facility] WILLAMS TRAINING 0 [facility] D AREA D AREA CARE AGENCY ON AGENCY ON CLIENT AGING AGING PER 15 MIN NONEMERGE A0100 [place] ENGL[place] NCY 0 [facility] ENTERPRIS MANAGEMEN ATION; ES T T[facility]I HOME CARE S5108 WILLAMS WILLAMS TRAINING 0 [facility] AREA D AREA CARE AGENCY ON AGENCY ON CLIENT AGING AGING PER 15 MIN NONEMERGE A0100 [place] ENGLISH NCY 0 [facility] ENTERPRIS MANAGEMEN ATION; ES T TAXI NONEMERGE A0100 [place] ENGL[place] NCY 0 [facility] ENTERPRIS MANAGEMEN ATION; ES T [facility] HOME CARE S5108 [facility] TRAINING 0 [facility] AREA D AREA CARE AGENCY ON AGENCY ON CLIENT AGING AGING PER 15 MIN NONEMERGE A0100 [place] ENGLISH NCY 0 [facility] ENTERPRIS MANAGEMEN ATION; ES T [facility] HOME CARE S5108 [facility] TRAINING 0 [facility] AREA D AREA CARE AGENCY ON AGENCY ON CLIENT AGING AGING PER 15 MIN NONEMERGE A0100 [place] ENGLISH NCY 0 [facility] ENTERPRIS MANAGEMEN ATION; ES T TAXI NONEMERGE A0100 [place] ENGLISH NCY 0 [facility] ENTERPRIS MANAGEMEN ATION; ES T TAXI HOME CARE S5108 WILL[facility] WILLAMS TRAINING 0 [facility] AREA D AREA CARE AGENCY ON AGENCY ON CLIENT AGING AGING PER 15 MIN NONEMERGE A0100 [place] ENGLISH NCY 0 [facility] ENTERPRIS MANAGEMEN ATION; ES T TAXI NONEMERGE A0100 [place] NCY 0 [facility] ENTERPRIS MANAGEMEN ATION; ES T TAXI HOME CARE S5108 [facility] TRAINING 0 [facility] AREA D AREA CARE AGENCY ON AGENCY ON CLIENT AGING AGING PER 15 MIN BLD GLU A4253 [facility] TEST/REAG 0 MEDICAL MEDICAL T STRIPS SUPPLY SUPPLY HOME BLD GLU MON-50 NORMAL A4256 [facility] LOW AND 0 MEDICAL MEDICAL HIGH SUPPLY SUPPLY CALIBRATO R SOLUTION/ CHIPS LANCETS A4259 [facility] PER BOX 0 MEDICAL MEDICAL OF 100 SUPPLY SUPPLY NONEMERGE A0100 [place] ENGLISH NCY 0 [facility] ENTERPRIS MANAGEMEN ATION; ES T TAXI HOME CARE S5108 [facility] TRAINING 0 [facility] AREA D AREA CARE AGENCY ON AGENCY ON CLIENT AGING AGING PER 15 MIN NONEMERGE A0100 [place] ENGLISH NCY 0 [facility] ENTERPRIS MANAGEMEN ATION; ES T TAXI NONEMERGE A0100 [place] ENGLISH NCY 0 [facility] ENTERPRIS MANAGEMEN ATION; ES T TAXI HOME CARE S5108 [facility] TRAINING 0 [facility] AREA D AREA CARE AGENCY ON AGENCY ON CLIENT AGING AGING PER 15 MIN HOME CARE S5108 [facility] TRAINING 0 [facility] AREA D AREA CARE AGENCY ON AGENCY ON CLIENT AGING AGING PER 15 MIN NONEMERGE A0100 [place] ENGLISH NCY 0 [facility] ENTERPRIS MANAGEMEN ATION; ES T TAXI NONEMERGE A0100 [place] ENGLISH NCY 0 [facility] ENTERPRIS MANAGEMEN ATION; ES T TAXI HOME CARE S5108 [facility] TRAINING 0 [facility] AREA D AREA CARE AGENCY ON AGENCY ON CLIENT AGING AGING PER 15 MIN NONEMERGE A0100 [place] ENGLISH NCY 0 [facility] ENTERPRIS MANAGEMEN ATION; ES T TAXI NONEMERGE A0100 [place] ENGLISH NCY 0 [facility] ENTERPRIS MANAGEMEN ATION; ES T TAXI HOME CARE S5108 [facility] TRAINING 0 [facility] AREA D AREA CARE AGENCY ON AGENCY ON CLIENT AGING AGING PER 15 MIN HOME CARE S5108 [facility] TRAINING 0 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 Y PROTHROMB 42459 [facility] IN TIME 0 O MEDICAL O 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 ECG 64234 WOOMASSIMO ANGELINA, ROUTINE 0 O MEDICAL YANIRE ECG W/LEAST ASSOCIATE 12 LDS S TRCG ONLY W/O I&R NONEMERGE A0100 [facility] ENGLISH NCY 0 [facility] ENTERPRIS MANAGEMEN ATION; ES T TAXI HOME CARE S5108 WILLAMS WILLAMS TRAINING 0 Ind[facility] HOME D AREA D AREA CARE AGENCY ON AGENCY ON CLIENT AGING AGING PER 15 MIN HOME CARE S5108 [facility]AMS WILLAMS TRAINING 0 [facility]epend[facility]LAN [facility] D AREA D AREA CARE AGENCY ON AGENCY ON CLIENT AGING AGING PER 15 MIN NONEMERGE A0100 [place] ENGLISH NCY 0 [facility] ENTERPRIS MANAGEMEN ATION; ES T TAXI NONEMERGE A0100 [place] ENGLISH NCY 0 [facility] ENTERPRIS MANAGEMEN ATION; ES T TAXI PROTHROMB 98530 [facility] IN TIME 0 O MEDICAL O 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 RADIOLOGI 09427 Jayson RIZO EXAM 0 IMAGING & HEAVEN B CHEST 2 VIEWS INTERVENT FRONTAL&L ION PLLC ATERAL NONEMERGE A0100 [facility] ENGLISH NCY 0 [facility] ENTERPRIS MANAGEMEN ATION; ES T TAXI NONEMERGE A0100 [place] NCY 0 [facility]SP[facility] ENTERPRIS MANAGEMEN ATION; ES T TAXI HOME CARE S5108 [facility] WILLAMS TRAINING 0 [facility] D AREA D AREA CARE AGENCY ON AGENCY ON CLIENT AGING AGING PER 15 MIN NONEMERGE A0100 [place]GL[place] NCY 0 [facility] ENTERPRIS MANAGEMEN ATION; ES T TAXI NONEMERGE A0100 [place] NCY 0 [facility]SP[facility] ENTERPRIS MANAGEMEN ATION; ES T TAXI HOME CARE S5108 [facility] WILLAMS TRAINING 0 [facility] AREA D AREA CARE AGENCY ON AGENCY ON CLIENT AGING AGING PER 15 MIN NONEMERGE A0100 [place] ENGLISH NCY 0 [facility]SP[facility] ENTERPRIS MANAGEMEN ATION; ES T TAXI NONEMERGE A0100 [place] NCY 0 [facility]SP[facility] ENTERPRIS MANAGEMEN ATION; ES T TAXI NONEMERGE A0100 [place] [place]GL[facility] NCY 0 [facility]SP[facility] ENTERPRIS MANAGEMEN ATION; ES T TAXI HOME CARE S5108 [facility] WILLAMS TRAINING 0 [facility] AREA D AREA CARE AGENCY ON AGENCY ON CLIENT AGING AGING PER 15 MIN NONEMERGE A0100 [place] ENGLISH NCY 0 [facility]SP[facility] ENTERPRIS MANAGEMEN ATION; ES T TAXI NONEMERGE A0100 [place] ENGLISH NCY 0 [facility]SP[facility] ENTERPRIS MANAGEMEN [...] PER 15 MIN HOME CARE S5108 [facility] TRAINING 0 [facility] AREA D AREA CARE AGENCY ON AGENCY ON CLIENT AGING AGING PER 15 MIN DEBRIDEME 30086 MILADYS HOOK, NT NAIL 0 NATHALIE ZELAYA ANY METHOD / HOME CARE S5108 [facility] TRAINING 0 [facility] AREA D AREA CARE AGENCY ON AGENCY ON CLIENT AGING AGING PER 15 MIN HOME CARE S5108 [facility] TRAINING 0 [facility] AREA D AREA CARE AGENCY ON AGENCY ON CLIENT AGING AGING PER 15 MIN HOME CARE S5108 [facility] TRAINING 0 [facility] AREA D AREA CARE AGENCY ON AGENCY ON CLIENT AGING AGING PER 15 MIN HOME CARE S5108 [facility] TRAINING 0 [facility] AREA D AREA CARE AGENCY ON AGENCY ON CLIENT AGING AGING PER 15 MIN HOME CARE S5108 [facility] TRAINING 0 [facility] AREA D AREA CARE AGENCY ON AGENCY ON CLIENT AGING AGING PER 15 MIN HOME CARE S5108 [facility] TRAINING 0 [facility] D AREA D AREA CARE AGENCY ON AGENCY ON CLIENT AGING AGING PER 15 MIN HOME CARE S5108 [facility] TRAINING 0 [facility] D AREA D AREA CARE AGENCY ON AGENCY ON CLIENT AGING AGING PER 15 MIN HEMOGLOBI 39611 [facility] N 0 O MEDICAL O MEDICAL GLYCOSYLA ASSOC ASSOC DOTTIE 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 Y Y ALBUMIN 53890 [facility] URINE 0 AMERIC AMERIC MICROALBU HOLDING HOLDING MIN QUANTIATI VE CREATININ 97417 [facility] E OTHER 0 AMERIC 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 PROTHROMB 39455 [facility] IN TIME 0 O MEDICAL O 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 BLOOD 28502 [facility] COUNT 0 O MEDICAL O MEDICAL COMPLETE ASSOC 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 DIFRNTL Y Y WBC COLLECTIO 15057 [facility] N VENOUS 0 O MEDICAL O MEDICAL BLOOD ASSOC ASSOC 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 URE Y Y COMPREHEN 93438 [facility] SIVE 0 O MEDICAL 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 Y Y LIPID 60971 [facility] PANEL 0 O MEDICAL O 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 HOME CARE S5108 [facility] TRAINING 0 [place] HOME D AREA AREA [facility] AGENCY ON AGENCY ON CLIENT AGING AGING PER 15 MIN HOME CARE S5108 [facility] TRAINING 0 [place]UM[facility] [facility]UM[facility]AN [facility] AREA [facility] AGENCY ON AGENCY ON CLIENT AGING AGING PER 15 MIN A4258 [facility] WERED 0 MEDICAL MACHINE PIE MAKER SUPPLY SUPPLY FOR LANCET EACH LANCETS A4259 [facility]ERTY PER BOX 0 MEDICAL MEDICAL OF 100 SUPPLY SUPPLY NORMAL A4256 [facility] LOW AND 0 MEDICAL MEDICAL HIGH SUPPLY SUPPLY CALIBRATO R SOLUTION/ CHIPS BLD GLU A4253 [facility]ERTY TEST/REAG 0 MEDICAL MEDICAL T STRIPS SUPPLY SUPPLY HOME BLD GLU MON-50 HOME CARE S5108 [facility] TRAINING 0 [facility] AGENCY ON AGENCY ON CLIENT AGING AGING PER 15 MIN HOME CARE S5108 [facility] TRAINING 0 [facility] D [facility] ARE[facility] AGENCY ON AGENCY ON CLIENT AGING AGING PER 15 MIN HOME CARE S5108 [facility] TRAINING 0 [facility] AGENCY ON AGENCY ON CLIENT AGING [...] AGING AGING PER 15 MIN URNLS DIP 69713 [facility] 0 O MEDICAL O MEDICAL STICK/TAB ASSOC ASSOC LET 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 AUTO W/O Y Y MICROSCOP Y CREATININ 54203 [facility] E OTHER 0 O MEDICAL [...] CLIENT AGING AGING PER 15 MIN RADIOLOGI 99886 [facility] C EXAM 0 HOSP INC HOSP INC KNEE COMPLETE 4/MORE VIEWS RADEX 14928 [facility] SPINE 0 IMAGING & PAUL LUMBOSACR AL 2/3 INTERVENT VIEWS I RADEX 38617 [facility] RIBS 0 IMAGING & PAUL UNILATERA L 2 VIEWS INTERVENT I THROMBOPL 53112 [facility] ASTIN 0 HOSP INC HOSP INC TIME PARTIAL PLASMA/WH OLE BLOOD RADIOLOGI 05899 [facility] C 0 IMAGING & PAUL EXAMINATI ON KNEE 3 INTERVENT VIEWS I RADEX 84380 [facility] RIBS UNI 0 HOSP INC HOSP INC W/POSTERO AN[place] MINIM[address] [place] [address] [facility] HEAD/BRAI 0 IMAGING & PAUL N W/O CONTRAST INTERVENT MATERIAL I COLLECTIO 85450 [facility] N VENOUS 0 HOSP INC HOSP INC BLOOD VENIPUNCT URE INJECTION J1885 [facility] HOSP INC KETOROLAC TROMETHAM INE PER 15 MG NONINVASI 21778 [facility] VE 0 HOSP INC HOSP INC EAR/PULSE OXIMETRY SINGLE DETER PROTHROMB 61388 [facility] IN TIME 0 HOSP INC HOSP INC THERAPEUT 58072 [facility] IC 0 HOSP INC HOSP INC PROPHYLAC TIC/DX INJECTION SUBQ/IM GROUND A0425 [facility] MILEAGE 0 EMS EMS PER STATUTE MILE AMBULANCE A0429 [facility] SERVICE 0 EMS EMS BLS EMERGENCY TRANSPORT [...] CLIENT AGING AGING PER 15 MIN DEBRIDEME 00780 MILADYS HOOK, ABHAY NAIL 0 NATHALIE CRUZ [...] WILLAMS TRAINING 0 [facility] HOME D [facility] D AREA CARE AGENCY ON AGENCY ON CLIENT AGING AGING PER 15 MIN HOME CARE S5108 [facility] TRAINING 0 [place] [facility] D AREA D AREA CARE AGENCY ON AGENCY ON CLIENT AGING AGING PER 15 MIN HOME CARE S5108 [facility] WILLAMS TRAINING 9 [place] [facility] D AREA D AREA CARE AGENCY ON AGENCY ON CLIENT AGING AGING PER 15 MIN HOME CARE S5108 [facility] WILL[facility] TRAINING 9 [place] [facility] D AREA CARE AGENCY ON AGENCY ON CLIENT AGING AGING PER 15 MIN HOME CARE S5108 [facility]AMS WILLAMS TRAINING 9 [place] [facility] D AREA CARE AGENCY ON AGENCY ON CLIENT AGING AGING PER 15 MIN HOME CARE S5108 [facility]AMS WILLAMS TRAINING 9 [place] D [facility] D AREA CARE AGENCY ON AGENCY ON CLIENT AGING AGING PER 15 MIN HOME CARE S5108 WILLAMS WILLAMS TRAINING 9 [place] [facility] AREA D AREA CARE AGENCY ON AGENCY ON CLIENT AGING AGING PER 15 MIN HOME CARE S5108 [facility] WILLAMS TRAINING 9 [place] [facility] D AREA CARE AGENCY ON AGENCY ON CLIENT AGING AGING PER 15 MIN HOME CARE S5108 WILLAMS WILLAMS TRAINING 9 [place] [facility] D AREA CARE AGENCY ON AGENCY ON CLIENT AGING AGING PER 15 MIN MISC [place] T1999 WILLAMS WILLAMS ITEMS & 9 CUM[facility]LAN [facility]UM[facility] D AREA D AREA RETAIL AGENCY [...] CLIENT AGING AGING PER 15 MIN DETERMINA 33957 SHARAN TSANG TION 9 [facility] S5108 WILLAMS WILLAMS TRAINING 9 [...] CLIENT AGING AGING PER 15 MIN ECG 49547 SKY HANNA 9 CARDIOLOG WOOD Jones ECG Y PSC W/LEAST 12 LDS W/I&R HOME CARE S5108 WILLAMS WILLAMS TRAINING 9 [...] CLIENT AGING AGING PER 15 MIN [facility]B 76055 [facility] 9 O MEDICAL O 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 LIPID 73113 [facility] 9 O MEDICAL O 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 COLLECTIO 21552 [facility] N VENOUS 9 O MEDICAL O MEDICAL BLOOD ASSOC ASSOC 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 URE Y Y COMPREHEN 90379 [facility] SIVE 9 O MEDICAL 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 Y Y HEMOGLOBI 87305 [facility] N 9 O MEDICAL O MEDICAL GLYCOSYLA ASSOC ASSOC DOTTIE A1C 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 [address] [facility] THYROID 9 O MEDICAL O MEDICAL STIMULATI ASSOC ASSOC NG 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 HORMONE Y Y TSH BLOOD 79523 [facility] COUNT 9 O MEDICAL O MEDICAL COMPLETE [...] CLIENT AGING AGING PER 15 MIN COMPREHEN 27255 [facility] SIVE 9 HOSP INC HOSP INC METABOLIC PANEL LIPID 47133 [facility] PANEL 9 HOSP INC HOSP INC HEMOGLOBI 30986 [facility] N 9 HOSP INC HOSP INC GLYCOSYLA DOTTIE A1C BLOOD 46471 [facility] COUNT 9 HOSP INC HOSP INC COMPLETE AUTO&AUTO DIFRNTL WBC PROTHROMB 74079 [facility] IN TIME 9 O MEDICAL O 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 PROTHROMB 71552 [facility] AL[facility] IN TIME 9 O MEDICAL O 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 ANK FT L1971 [facility] 9 D FOOT D FOOT PLSTC/OTH AND ANKLE AND ANKLE MATL W/ANK JNT PREFAB [facility] A4258 [facility] WERED 9 MEDICAL MACHINE PIE MAKER SUPPLY SUPPLY FOR LANCET EACH LANCETS A4259 [facility] PER BOX 9 MEDICAL MEDICAL OF 100 SUPPLY SUPPLY BLD GLU A4253 [facility] TEST/REAG 9 MEDICAL MEDICAL T STRIPS SUPPLY SUPPLY HOME BLD GLU MON-50 PROTHROMB 75144 [facility] IN TIME 9 O MEDICAL O 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 COLLECTIO 05598 [facility] N VENOUS 9 O MEDICAL O MEDICAL BLOOD ASSOC ASSOC 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 URE Y Y BLOOD 03303 [facility] COUNT 9 HOSP INC HOSP INC COMPLETE AUTO&AUTO DIFRNTL WBC COLLECTIO 13996 [facility] N VENOUS 9 HOSP INC HOSP INC BLOOD VENIPUNCT URE COMPREHEN 14262 [facility] SIVE 9 HOSP INC HOSP INC METABOLIC PANEL THROMBOPL 44860 [facility] ASTIN 9 HOSP INC HOSP INC TIME PARTIAL PLASMA/WH OLE BLOOD RADIOLOGI 81904 Jayson RIZO 9 IMAGING & HEAVEN Mckeon EXAMINATI ON CHEST INTERVENT SING[place] [address] [facility] TROPONIN 9 HOSP INC HOSP INC QUANTITAT TIKA CREATINE 60221 [facility] KINASE MB 9 HOSP INC HOSP [facility] FRACTION ONLY CREATINE 01835 [facility] KINASE 9 HOSP INC H[facility]P [facility] TOTAL PROTHROMB 34717 [facility] IN TIME 9 HOSP INC HOSP INC NONINVASI 85137 [facility] VE 9 HOSP INC HOSP INC EAR/PULSE OXIMETRY SINGLE DETER INJECTION [id number] [facility] 9 HOSP INC HOSP INC LORAZEPAM 2 MG ECG 54863 [facility] ROUTINE 9 HOSP INC HOSP INC ECG W/LEAST 12 LDS TRCG ONLY W/O I&R THER 83249 [facility] PROPH/DX 9 HOSP INC HOSP INC NJX IV PUSH SINGLE/1S T SBST/DRUG GROUND A0425 [facility] MILEAGE 9 EMS EMS PER STATUTE MILE AMB A0427 [facility] SERVICE 9 EMS EMS ALS EMERGENCY TRANSPORT LEVEL 1 COMPREHEN [id number] [facility] SIVE 9 O MEDICAL 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 Y Y PROTHROMB 55064 [facility] IN TIME 9 O MEDICAL O 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 HEMOGLOBI 03962 [facility] N 9 O MEDICAL O MEDICAL GLYCOSYLA ASSOC ASSOC DOTTIE A1C 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 Y Y COLLECTIO 26455 [facility] N VENOUS 9 O MEDICAL O MEDICAL BLOOD ASSOC ASSOC 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 URE Y Y DUP-SCAN 75671 [facility] XTR VEINS 9 [facility] BILATERAL STUDY DUP-SCAN 03374 [facility] XTR VEINS 9 [facility] [place] JUSTINE Jones D [facility] STUDY ECG 09012 [facility] ROUTINE 9 HOSP INC HOSP INC ECG W/LEAST 12 LDS TRCG ONLY W/O I&R GROUND A0425 [facility] MILEAGE 9 EMS EMS PER STATUTE MILE AMBULANCE A0429 [facility] SERVICE 9 EMS [place] [address] [facility] TROPONIN 9 HOSP INC HOSP INC QUANTITAT TIAK CREATINE 37143 [facility] KINASE 9 HOSP INC HOSP INC TOTAL CREATINE 18273 [facility] KINASE MB 9 HOSP INC HOSP INC FRACTION ONLY RADEX 42053 [facility] SPINE 9 IMAGING & HEAVEN B CERVICAL 4 OR 5 INTERVENT VIEWS ION PLLC RADEX 13974 [facility] SPINE 9 [facility]P INC HOSP INC CERVICAL [address] [place] [address] [facility] HEAD/BRAI 9 HOSP INC HOSP INC N W/O CONTRAST MATERIAL THROMBOPL 40841 [facility] ASTIN 9 HOSP INC HOSP INC TIME PARTIAL PLASMA/WH OLE BLOOD COLLECTIO 21513 [facility] N VENOUS 9 HOSP INC HOSP INC BLOOD VENIPUNCT URE PROTHROMB 97067 [facility] IN TIME 9 HOSP INC HOSP INC COMPREHEN 88575 [facility] SIVE 9 HOSP INC HOSP INC METABOLIC PANEL BLOOD 16450 [facility] COUNT 9 HOSP INC HOSP INC COMPLETE AUTOMATED COLLECTIO 00677 [facility] N VENOUS 9 O MEDICAL O MEDICAL BLOOD ASSOC ASSOC 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 URE Y Y PROTHROMB 67184 [facility] IN TIME 9 O MEDICAL O 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 DEBRIDEME 41290 [facility], NT NAIL 9 NATHALIE ZELAYA ANY METHOD 6/> BLD GLU A4253 [facility] TEST/REAG 9 MEDICAL MEDICAL T STRIPS SUPPLY SUPPLY HOME BLD GLU MON-50 LANCETS A4259 [facility] PER BOX 9 MEDICAL MEDICAL OF 100 SUPPLY SUPPLY NON-INVAS 80642 [facility] IVE 9 NATHALIE ZELAYA PHYSIOLOG IC STUDY EXTREMITY 3 LEVLS DEBRIDEME 22520 [facility] NT NAIL 9 NATHALIE ZELAYA ANY METHOD 6/> SKIN TEST 95695 DHS/CO BALJIT 9 [facility] ACCT DEPARTMEN INTRADERM T AL ADD LW [...] AND ANKLE TH MATERIAL CUSTOM YANELI PROTHROMB 94637 [facility] IN TIME 9 O MEDICAL O 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 COLLECTIO 75475 [facility] VENOUS 9 O MEDICAL O MEDICAL BLOOD ASSOC ASSOC 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 URE Y Y COLLECTIO 76418 [facility] N VENOUS 9 O MEDICAL O MEDICAL BLOOD ASSOC ASSOC 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 URE Y Y BLOOD 67638 [facility] COUNT 9 O MEDICAL O MEDICAL COMPLETE ASSOC 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 DIFRNTL Y Y WBC COMPREHEN 38644 [facility] SIVE 9 O MEDICAL 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 Y Y PROTHROMB 79653 [facility] IN TIME 9 O MEDICAL O 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 ECG 56617 [facility], ROUTINE 9 O MEDICAL YANIRE ECG W/LEAST ASSOCIATE 12 LDS S TRCG ONLY W/O I&R PROTHROMB 83648 [facility] 9 O MEDICAL O 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 COLLECTIO 65094 [facility] N VENOUS 9 O MEDICAL O MEDICAL BLOOD ASSOC ASSOC 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 URE Y Y COMPREHEN 13548 [facility] SIVE 9 O MEDICAL 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 Y Y BLOOD 43392 [facility] COUNT 9 O MEDICAL O MEDICAL COMPLETE [...] SPRING-PO A4258 [facility] WERED 9 MEDICAL MACHINE PIE MAKER SUPPLY SUPPLY FOR LANCET EACH DEBRIDEME 51913 AIDEN WOLFE, NT NAIL 9 ESA ESA ANY ER J ER J METHOD 6/> COLLECTIO 05287 [facility] N VENOUS 9 O MEDICAL O MEDICAL BLOOD ASSOC ASSOC 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 URE Y Y COMPREHEN 22407 [facility] 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 Y Y PROTHROMB 09697 [facility] TIME 9 O MEDICAL O 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 LIPID 64021 [facility] PANEL 9 O MEDICAL O 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 KNEE L1810 [facility] ELASTIC [facility] INC JOINTS PREFAB CUSTOM FIT LUMB-SACR L0631 [facility] AL ORTHOS 9 [facility] SAGIT INC INC CNTRL RIGID A&P PREFAB ANKLE L1902 [facility] ORTH 9 [facility] ANKLE INC INC GAUNT/[place] [address] ASSOCIATE DELILAH, SURG 9 D ABDIAZIZ S PATHOLOGY PATHOLOGI [facility] ROSCOPIC EXAM PROTHROMB 66636 ENRIQUE ENRIQUE IN TIME 9 [facility] INC ECG 42840 ENRIQUE ENRIQUE ROUTINE 9 MO CO ECG [facility] W/LEAST INC INC 12 LDS TRCG ONLY W/O I&R INJECTION J2250 [facility] 9 [facility] HCL PER INC INC 1 MG COMPREHEN 74748 [facility] SIVE 9 CO MO METABOLIC [facility] PANEL INC INC HYSTEROSC 46581 [facility] OPY BX 9 CO MO ENDOMETRI [facility] UM&/POLYP INC INC C W/WO D&C BLOOD 85161 [facility] COUNT 9 [facility] AUTO&AUTO INC INC DIFRNTL WBC ANES 72113 [facility] [place], HYSTEROSC 9 ANESTHESI BEVERLY D OPY&/HYST A PC EROSALPIN GOGRAPHY W/BX INJECTION J1885 [facility] 9 [facility] KETOROLAC [facility] INC INC TROMETHAM INE PER 15 MG INJECTION J2405 [facility] 9 [facility] INC PER 1 MG RADIOLOGI 14899 [facility] C EXAM 9 CO MO CHEST 2 [facility] VIEWS INC INC FRONTAL&L ATERAL GONADOTRO 02287 [facility] PIN 9 [facility] INC INC QUALITATI VE CREATINE 07534 [facility] KINASE 8 O MEDICAL O MEDICAL TOTAL ASSOC 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 BLOOD 01197 [facility] COUNT 8 O MEDICAL O MEDICAL COMPLETE ASSOC 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 DIFRNTL Y Y WBC COLLECTIO 29033 [facility] N VENOUS 8 O MEDICAL O MEDICAL BLOOD ASSOC ASSOC 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 URE Y Y COMPREHEN 66235 [facility] O MEDICAL 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 Y Y PROTHROMB 45922 [facility] IN TIME 8 O MEDICAL O 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 SCREENING 90925 [facility], 8 IMAGING & MARYAM L MAMMOGRAP HY INTERVENT BILATERAL ION PLLC US PELVIC 46513 [facility], 8 IMAGING & MARYAM L NONOBSTET LUIS INTERVENT REAL-TIME ION PLLC IMAGE COMPLETE PROTHROMB 54856 [facility] IN TIME 8 O MEDICAL O 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 COLLECTIO 67401 [facility] N VENOUS 8 O MEDICAL O MEDICAL BLOOD ASSOC ASSOC 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 URE Y Y BLOOD 99738 [facility] COUNT 8 O MEDICAL O MEDICAL COMPLETE ASSOC 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 DIFRNTL Y Y WBC BASIC 91583 [facility] METABOLIC 8 O MEDICAL O MEDICAL PANEL ASSOC ASSOC CALCIUM 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 TOTAL Y Y STRAPPING 38510 AIDEN WOLFE UNNA [address] [place] [address] [facility], HEAD/BRAI 8 IMAGING & MARYAM L N W/O CONTRAST INTERVENT MATERIAL ION PLLC RADIOLOGI 75136 [facility] C 8 HOSP INC HOSP INC EXAMINATI [place] [address] [facility] TROPONIN 8 HOSP INC HOSP INC QUANTITAT TIKA CREATINE 56561 [facility] KINASE MB 8 HOSP INC HOSP INC FRACTION ONLY CREATINE 89012 [facility] KINASE 8 HOSP INC HOSP INC TOTAL BLOOD 57080 [facility] COUNT 8 HOSP INC HOSP INC COMPLETE AUTO&AUTO DIFRNTL WBC COLLECTIO 82922 [facility] N VENOUS 8 HOSP INC HOSP INC BLOOD VENIPUNCT URE COMPREHEN 95398 [facility] SIVE 8 HOSP INC HOSP INC METABOLIC PANEL ECG 93636 [facility] ROUTINE 8 HOSP INC HOSP INC ECG W/LEAST 12 LDS TRCG ONLY W/O I&R GROUND A0425 [facility] MILEAGE 8 EMS EMS PER STATUTE MILE AMB A0427 [facility] SERVICE 8 EMS EMS ALS EMERGENCY TRANSPORT LEVEL 1 GROUND A0425 [facility] MILEAGE 8 EMS EMS PER STATUTE MILE AMBULANCE A0429 [facility] SERVICE 8 EMS [place] [address] [facility], HEAD/BRAI 8 IMAGING & MARYAM L N W/O CONTRAST INTERVENT MATERIAL ION PLLC RADIOLOGI 79863 [facility], C EXAM 8 IMAGING & MARYAM L CHEST 2 VIEWS INTERVENT FRONTAL&L ION PLLC ATERAL CREATINE 67731 [facility] KINASE MB 8 HOSP [place] [address] [facility] TROPONIN 8 HOSP INC HOSP INC QUANTITAT TIKA BLOOD 83977 [facility] COUNT 8 HOSP INC HOSP INC COMPLETE AUTO&AUTO DIFRNTL WBC BASIC 67649 [facility] METABOLIC 8 HOSP INC HOSP INC PANEL CALCIUM TOTAL CREATINE 200 40562 [facility] KINASE 8 HOSP INC HOSP INC TOTAL NONINVASI 10-200 68482 [facility] VE 8 HOSP INC HOSP INC EAR/PULSE OXIMETRY SINGLE DETER COMPREHEN 10-200 98463 [facility] SIVE 8 HOSP INC HOSP INC METABOLIC PANEL NONINVASI 10--200 50695 [facility] VE 8 HOSP INC HOSP INC EAR/PULSE OXIMETRY SINGLE DETER PROTHROMB 12-28-200 65974 [facility] IN TIME 8 HOSP INC HOSP INC ECG 200 31127 [facility] ROUTINE 8 HOSP INC HOSP INC ECG W/LEAST 12 LDS TRCG ONLY W/O I&R GROUND A0425 [facility] MILEAGE 8 EMS EMS PER STATUTE MILE CREATINE 200 40991 [facility] KINASE 8 HOSP INC HOSP INC TOTAL BLOOD 200 38459 [facility] COUNT 8 HOSP INC HOSP INC COMPLETE AUTO&[place] [address] [facility] TROPONIN 8 HOSP INC HOSP INC QUANTITAT TIKA CREATINE 200 52058 [facility] KINASE MB 8 HOSP INC HOSP INC FRACTION ONLY RADIOLOGI 10-27-200 84555 Jayson NEWMAN 8 IMAGING & MARYAM Boyd EXAMINATI ON CHEST INTERVENT SINGLE ION PLLC VIEW FRONTAL AMB A0427 [facility] SERVICE 8 EMS EMS ALS EMERGENCY TRANSPORT LEVEL 1 COLLECTIO 00495 [facility] N VENOUS 8 O MEDICAL O MEDICAL BLOOD ASSOC ASSOC 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 URE Y Y IIV3 66427 [facility], VACCINE 8 O MEDICAL YANIRE SPLIT VIRUS 0.5 ASSOCIATE ML S DOSAGE IM USE ADMINISTR G0008 [facility], ATION OF 8 O MEDICAL YANIRE INFLUENZA VIRUS ASSOCIATE VACCINE S PROTHROMB 83781 [facility] IN TIME 8 O MEDICAL O 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 DEBRIDEME 52239 AIDEN WOLFE, NT NAIL 8 ESA ESA ANY ER J ER J METHOD 6/> ECG 12445 [facility] FERNANDEZ, ROUTINE 8 CARDIOLOG KHALED ECG Y W/LEAST 12 LDS W/I&R CTA ABDL 28323 IZABELA BAKER, AORTA&BI 8 CARLITOS Cage ILIOFEM RADIOLOGY W/CONTRAS ASSOC T&[place] [address] [facility] ANGIOGRAP 8 [facility] [place] JUSTINE HY LOWER D D EXTREMITY [facility] DUPLEX 12076 IZABELA SHABBIR, SCAN 8 ULI Cage EXTRACRAN RADIOLOGY IAL ART ASSOC COMPL BI STUDY PROGRAMME 92680 Robert TURPIN STIMJ & 8 D CLINIC VICENTE Cage PACG PLLC AFTER IV DRUG NFS COMPRE 78911 VALENTINE TURPIN 8 D CLINIC [facility] Cage YSIOLOGIC PLLC ARRHYTHMI A INDUCTION GROUND A0425 [facility] MILEAGE 8 EMS EMS PER STATUTE MILE LEFT 3722 [facility] HEART 8 JUSTINE FLETCHER CARDIAC D D CATHETERI [facility] CORONARY 8856 [facility] ARTERIOGR 8 [facility] JUSTINE APHY D D USING TWO [facility] [place] 3726 [facility] STIMULATI 8 JUSTINE FLETCHER ON&RECORD D D ING [facility] ANGIOCARD 8853 [facility] IOGRAPHY 8 JUSTINE FLETCHER OF LEFT D D HEART [facility] S AMB A0427 [facility] SERVICE 8 EMS EMS ALS EMERGENCY TRANSPORT LEVEL 1 SBSQ 60142 [facility] 8 D [facility] J 15 PHYSICIAN MINUTES S SBSQ 93118 [facility] 8 D [facility] J 15 PHYSICIAN MINUTES S L HRT [address] JOELNO GARCIA CATHETERI 8 D CLINIC VIC[facility]E Cage ZATION [place] [address] JUSTINE GARCIA C-CATHJ 8 D CLINIC VICENTE Cage F/SLCTV C PLLC ANGRPH I SI&R 16521 JOELNO GARCIA, F/NJX PX 8 D CLINIC V[facility]ENTE M DURING PLLC C-CATHJ VENTR&/AT R ANGRPH I SI&R 15324 JUSTINE GARCIA, F/NJX PX 8 D [facility]INIC [facility] Cage DURING PLLC C-CATHJ PULM&/OR SELECT INJECTION 12123 JUSTINE GARCIA CARDIAC 8 D CLINIC VICENTE Cage CATHJ L PLLC VENTR/L ATR ANGIOGRAP H SBSQ 66374 [facility] 8 D CLINIC VICENTE Cage CARE/DAY PLLC 25 MINUTES CREATINE 73479 [facility] KINASE 8 HOSP INC HOSP INC TOTAL BLOOD 54025 [facility] COUNT 8 HOSP INC HOSP INC COMPLETE AUTO&AUTO DIFRNTL WBC COLLECTIO 38775 [facility] N VENOUS 8 HOSP INC HOSP INC BLOOD VENIPUNCT URE RADIOLOGI 51140 [facility] C 8 HOSP INC HOSP INC EXAMINAT[place] [address] IZABELA ROCHA HEAD/BRAI 8 CASTRO N W/O RADIOLOGY CONTRAST ASSOC MATERIAL CREATINE 75958 [facility] KINASE MB 8 HOSP [place] [address] [facility] TROPONIN 8 HOSP [facility] HOSP INC QUANTITAT TIKA GROUND A0425 [facility] MILEAGE 8 EMS EMS PER STATUTE MILE INITIAL 74828 [facility] 8 D [facility] J 50 PHYSICIAN MINUTES S ECG 74846 [facility] ROUTINE 8 HOSP INC HOSP INC ECG W/LEAST 12 LDS TRCG ONLY W/O I&R INITIAL 52960 JUST[facility] GARCIA, INPATIENT 8 D CLINIC VICENTE Cage CONSULT PLLC NEW/ESTAB PT 80 MIN NONINVASI 39800 [facility] VE 8 HOSP INC HOSP INC EAR/PULSE OXIMETRY SINGLE DETER COMPREHEN 26613 [facility] SIVE 8 HOSP [facility] HOSP INC METABOLIC PANEL AMB A0427 [facility] SERVICE 8 EMS EMS ALS EMERGENCY TRANSPORT LEVEL 1 N-INVAS 37760 [facility] FERNANDEZ PHYSIOLOG 8 CARDIOLOG KHALED IC STD Y LXTR ART COMPL BI DUP-SCAN 25156 [facility] XTR VEINS 8 HOSP INC HOSP INC UNILATERA L/LIMITED STUDY RADEX 19905 [facility] SUBRAMANIAN, ELBOW 2 8 [facility] RADEX 22759 LONG ALFARO, HAND 8 O MEDICAL YANIRE MINIMUM 3 VIEWS ASSOCIATE S ECG 23689 [facility] FERNANDEZ, ROUTINE 8 CARDIOLOG KHALED ECG Y W/LEAST 12 LDS W/I&R PROTHROMB 04200 [facility] IN TIME 8 O MEDICAL O 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 ECG 98317 SIEPERSHERIDAN FERNANDEZ, ROUTINE 8 CARDIOLOG KHALED ECG Y W/LEAST 12 LDS W/I&R BASIC 72487 [facility] METABOLIC 8 HOSP INC HOSP INC PANEL CALCIUM TOTAL COLLECTIO 76286 [facility] N VENOUS 8 HOSP INC HOSP INC BLOOD VENIPUNCT URE BLOOD 37991 [facility] COUNT 8 HOSP INC HOSP INC COMPLETE AUTO&[place] [address] [facility] TROPONIN 8 HOSP INC HOSP INC QUANTITAT TIKA CREATINE 76231 [facility] KINASE MB 8 HOSP INC HOSP INC FRACTION ONLY CREATINE 41786 [facility] KINASE 8 HOSP INC HOSP INC TOTAL CREATINE 98833 [facility] KINASE 8 HOSP INC HOSP INC TOTAL CREATINE 29701 [facility] KINASE MB 8 HOSP [place] [address] [facility] TROPONIN 8 HOSP INC HOSP INC QUANTITAT TIKA BLOOD 87385 [facility] COUNT 8 HOSP INC HOSP INC COMPLETE AUTO&AUTO DIFRNTL WBC RADIOLOGI 13822 [facility] C 8 HOSPITAL- HOSPITAL- EXAMINATI HOSPITALI HOSPITALI ON CHEST [facility] [place] COLLECTIO 78274 [facility] N VENOUS 8 HOSP INC HOSP INC BLOOD VENIPUNCT URE PROTHROMB 18385 [facility] IN TIME 8 HOSP INC HOSP INC COMPREHEN 27088 [facility] SIVE 8 HOSP INC HOSP INC METABOLIC PANEL ECG 32752 [facility] ROUTINE 8 HOSP INC HOSP INC ECG W/LEAST 12 LDS TRCG ONLY W/O I&R GROUND A0425 [facility] MILEAGE 8 EMS EMS PER STATUTE MILE AMB A0427 [facility] SERVICE 8 EMS EMS ALS EMERGENCY TRANSPORT LEVEL 1 ECG 93754 [facility], ROUTINE 8 ECG BECCA BECCA W/LEAST 12 LDS TRCG ONLY W/O I&R SKIN TEST 14495 [facility] [address] [facility]ALTH CONUNTY TUBER[facility] SIS BANK ACCT DEPARTMEN [place]TRADERM [place] ECG 13622 [facility] ROUTINE 8 CARDIOLOG CARDIOLOG ECG Y Y W/LEAST 12 LDS W/I&R ECG 89273 [facility], ROUTINE 8 CARDIOLOG KHALED ECG Y W/LEAST 12 LDS W/I&R HOSPITAL 46151 RAJ ANTHONY, DISCHARGE 8 SADAF SADAF DAY MANAGEMEN T 30 MIN/< COMPRE 09160 [facility] [place] [address] MEDICAL MEDICAL YSIOLOGIC SPEC [place] ARRHYTHMI A INDUCTION INITIAL 02075 [facility] [place] [address] MEDICAL MEDICAL CARE/DAY SPEC OF SPEC OF 50 [place] MINUTES INTRA-TATIANNA 99479 THE THE TRIC&/ATR MEDICAL MEDICAL IAL MAPG SPEC OF SPEC OF [place] W/CATH MA COMPRE 75449 THE THE ELECTROPH MEDICAL MEDICAL YSIOL XM SPEC OF SPEC OF W/LEFT [place] ATRIAL PACNG/REC ICAR CATH 0[address]32 THE [address] MEDICAL ARRHYTGNI SPEC OF SPEC OF C FOC [place] SUPVENTR TCHYCAR SBSQ 12835 [facility] 8 CARDIOLOG KHALED CARE/DAY Y 25 MINUTES GROUND A0425 [facility] MILEAGE 8 FIRE/EMS FIRE/EMS PER STATUTE MILE AMB A0427 [facility] SERVICE 8 FIRE/EMS FIRE/EMS ALS EMERGENCY TRANSPORT LEVEL 1 SBSQ 52075 [facility] 8 CARDIOLOG CARDIOLOG CARE/DAY Y Y 25 MINUTES SBSQ 55410 [facility] 8 CARDIOLOG CARDIOLOG CARE/DAY Y Y 25 MINUTES SBSQ 44795 [facility] 8 CARDIOLOG CARDIOLOG CARE/DAY Y Y 25 MINUTES ANES 47047 [facility] 8 D D ELEC ANESTHESI ANESTHESI CONVERSIO A ASSOC A ASSOC N ARRHYTHMI CARDIOVER 72898 [facility] TIERRA 8 CARDIOLOG CARDIOLOG ELECTIVE Y Y ARRHYTHMI A EXTERNAL INITIAL 30447 [facility] INPATIENT 8 FAMILY FAMILY CONSULT CARE CARE NEW/ESTAB PT 55 MIN SBSQ 31132 [facility] 8 CARDIOLOG CARDIOLOG CARE/DAY Y Y 25 MINUTES SBSQ 30314 [facility] 8 CARDIOLOG CARDIOLOG CARE/DAY Y Y 25 MINUTES ANES 87841 [facility] S[facility] 8 D D ELEC ANESTHESI ANESTHESI CONVERSIO A ASSOC A ASSOC N ARRHYTHMI INITIAL 20402 [facility] INPATIENT 8 CARDIOLOG CARDIOLOG CONSULT Y Y NEW/ESTAB PT 80 MIN CARDIOVER 15781 [facility] TIERRA 8 CARDIOLOG CARDIOLOG ELECTIVE Y Y ARRHYTHMI A EXTERNAL ECG 67512 [facility] ROUTINE 8 CARDIOLOG CARDIOLOG ECG Y Y W/LEAST 12 LDS W/I&R Encounters Encounter Start End Date Code Location Performer Type Date DOMICIL/R 99322 [facility] EST HOME 7 7 NEW PT VISIT MOD SEVER 30 MIN EMERGENCY 97421 [facility] DEPT 7 7 PHYSICIAN VISIT S, PLLC HIGH SEVERITY& THREAT FUN [facility] MAY - 6 6 [facility] 6 [facility] DOM/R-MERON 28601 PAUL ELDER E E/M EST 5 5 [facility] SIGNIF NEW PROB 60 MINUTES EMERGENCY 40299 EMERGENCY DUKES JENNIFER DEPT 5 5 [place] VISIT HIGH CORPORATI SEVERITY& THREAT FUN DOM/R-MERON 22944 PAUL ELDER E E/M EST 5 5 [facility] SIGNIF NEW PROB 60 MINUTES [facility] - 5 5 [facility] INPATIENT D [facility] OFFICE 14604 [facility]I GOYAL OUTPATIEN 5 5 CARDIOLOG T VISIT Y 25 MINUTES OFFICE 30000 [facility] OUTPATIEN 5 5 AND SLEEP Z BONNER T NEW 30 DISORDER MINUTES OFFICE 80447 [facility] OUTPATIEN 5 5 O MEDICAL T VISIT 15 ASSOCIATE MINUTES CLINIC, [facility] 5 5 O MEDICAL HEALTH ASSOCIATE CLINIC, [facility] 5 5 O MEDICAL HEALTH ASSOCIATE OFFICE 42011 [facility] OUTPATI[facility] 5 5 O MEDICAL T VISIT 15 ASSOCIATE MINUTES OFFICE 59276 [facility] KIMBALLA OUTPATIEN 5 5 CARDIOLOG T VISIT Y 25 MINUTES OFFICE 72525 [facility] GOYAL OUTPATIEN 5 5 CARDIOLOG T VISIT Y 25 MINUTES EMERGENCY 93015 [facility] MEDROSO DEPT 5 5 JACQUIE FLORIN VISIT EMERGENCY HIGH PHYS SEVERITY& THREAT FUNCJ EMERGENCY 88378 EMERGENCY EARL [address] [place] DEPARTMEN T VISIT CORPORATI HIGH/URGE NT SEVERITY CRITICAL [facility] ACCESS 5 5 HOSP [facility] HOSPITAL EMERGENCY 19272 EMERGENCY WOODY II 5 5 [place] JAM DEPARTMEN T VISIT CORPORATI HIGH/URGE NT SEVERITY OFFICE 00989 [facility] 5 5 O MEDICAL T VISIT 15 ASSOCIATE MINUTES EMERGENCY 65816 [facility] 5 5 HOSP [facility] DEPARTMEN T VISIT MODERATE SEVERITY HOME PERSONAL HEALTH, 4 4 [facility] OUTPATIEN HOME CARE T OF OFFICE 42597 [facility]PATI[facility] 4 4 O MEDICAL T VISIT 15 ASSOCIATE MINUTES CLINIC, [facility] 4 4 O MEDICAL HEALTH ASSOCIATE OFFICE 78069 [facility] OUTPATI[facility] 4 4 O MEDICAL T VISIT 15 ASSOCIATE MINUTES CLINIC, [facility] 4 4 O MEDICAL HEALTH ASSOCIATE OFFICE 71143 EAR NOSE SEBASTIÁN OUTPATIEN 4 4 AND RAN T VISIT THROAT 15 SPECIALI MINUTES OFFICE 48721 LONG BRIONESPATIEN 4 4 O MEDICAL T VISIT 15 ASSOCIATE MINUTES CLINIC, [facility] 4 4 O MEDICAL HEALTH ASSOCIATE EMERGENCY 14949 EMERGENCY [place] II 4 4 [facility] T VISIT CORPORATI HIGH/URGE NT SEVERITY HOME PERSONAL HEALTH, 4 4 TOUCH OUTPATIEN HOME CARE T OF OFFICE 41576 JUSTINE HARRIS OUTPATIEN 4 4 D FOOT & DEN T VISIT ANKLE 15 CENT MINUTES OFFICE 47095 EAR NOSE SEBASTIÁN OUTPATIEN 4 4 AND RAN T NEW 30 THROAT MINUTES SPECIALI CLINIC, [facility] 4 4 O MEDICAL HEALTH ASSOCIATE OFFICE 87908 [facility] BRIONESPATIEN 4 4 O MEDICAL T VISIT 15 ASSOCIATE MINUTES HOME PERSONAL HEALTH, 4 4 TOUCH OUTPATIEN HOME CARE T OF OFFICE 38808 BALJIT SMILEY OUTPATIEN 4 4 CONUNTY CONUNTY T VISIT 5 HEALTH HEALTH MINUTES DEPARTM DEPARTM OFFICE 60899 [facility] OUTPATIEN 4 4 CONUNTY CONUNTY T VISIT HEALTH HEALTH 10 DEPARTM DEPARTM MINUTES OFFICE 81594 CHIDI GOYAL OUTPATIEN 4 4 CARDIOLOG T VISIT Y 25 MINUTES OFFICE 64552 [facility] BRIONESPATIEN 4 4 O MEDICAL T VISIT 15 ASSOCIATE MINUTES CLINIC, [facility] 4 4 O MEDICAL HEALTH ASSOCIATE OFFICE 59242 [facility] OUTPATIEN 4 4 O MEDICAL T VISIT 15 ASSOCIATE MINUTES CLINIC, [facility] 4 4 O MEDICAL HEALTH ASSOCIATE OFFICE 61981 CHIDI GOYAL OUTPATIEN 4 4 CARDIOLOG T VISIT Y 15 MINUTES OFFICE 65228 [facility] OUTPATIEN 4 4 O MEDICAL T VISIT 15 ASSOCIATE MINUTES CLINIC, [facility] 4 4 O MEDICAL HEALTH ASSOCIATE EMERGENCY 34292 [facility] 4 4 HOSP [facility] DEPARTMEN T VISIT HIGH/URGE NT SEVERITY CRITICAL [facility] ACCESS 4 4 HOSP [facility] HOSPITAL OFFICE 72880 [facility] OUTPATIEN 4 4 O MEDICAL T VISIT 15 ASSOCIATE MINUTES CLINIC, [facility] 4 4 O MEDICAL HEALTH ASSOCIATE CLINIC, [facility] 4 4 O MEDICAL HEALTH ASSOCIATE OFFICE 00750 [facility] OUTPATIEN 4 4 O MEDICAL T VISIT 15 ASSOCIATE MINUTES OFFICE 30212 JARRODLL OUTPATIEN 4 4 O MEDICAL T VISIT 15 ASSOCIATE MINUTES CLINIC, [facility] 4 4 O MEDICAL HEALTH ASSOCIATE CLINIC, [facility] 4 4 O MEDICAL HEALTH ASSOCIATE OFFICE 14289 [facility] OUTPATIEN 4 4 O MEDICAL T VISIT 15 ASSOCIATE MINUTES HOME PERSONAL HEALTH, 4 4 TOUCH OUTPATIEN HOME CARE T OF CLINIC, [facility] 3 3 O MEDICAL HEALTH ASSOCIATE OFFICE 56900 [facility] OUTPATIEN 3 3 O MEDICAL T VISIT 15 ASSOCIATE MINUTES CLINIC, [facility] 3 3 O MEDICAL HEALTH ASSOCIATE OFFICE 20917 [facility] OUTPATI[facility] 3 3 O MEDICAL T VISIT 15 ASSOCIATE MINUTES OFFICE 76106 RONALDPROSPERET JIM GOYAL OUTPATIEN 3 3 CARDIOLOG T VISIT Y 15 MINUTES OFFICE 49821 JARR[facility] OUTPATIEN 3 3 O MEDICAL T VISIT 15 ASSOCIATE MINUTES CLINIC, [facility] 3 3 O MEDICAL HEALTH ASSOCIATE HOME PERSONAL HEALTH, 3 3 TOUCH OUTPATIEN HOME CARE T OF OFFICE 18813 SPORTS SUPINSKI OUTPATIEN 3 3 MEDICINE JENNIFER T VISIT & 10 ORTHOPAED MINUTES I CLINIC, [facility] 3 3 O MEDICAL HEALTH ASSOCIATE OFFICE 49998 JARR[facility] OUTPATIEN 3 3 O MEDICAL T VISIT 15 ASSOCIATE MINUTES OFFICE 76604 RONALDRSET OUTPATIEN 3 3 CARDIOLOG T VISIT Y 15 MINUTES CRITICAL [facility] ACCESS 3 3 [facility] EMERGENCY 21888 PRIETO ALBERT DEPT 3 3 EMERGENCY I RENEE VISIT SERVICES HIGH SEVERITY& THREAT FUN CLINIC, [facility] 2 2 O MEDICAL HEALTH ASSOCIATE OFFICE 86721 WOOCHEIKHLL OUTPATIEN 2 2 O MEDICAL T VISIT 15 ASSOCIATE MINUTES OFFICE 60452 AYANNA GRAVES OUTPATIEN 2 2 T NEW 45 MINUTES CRITICAL [facility] ACCESS 2 2 [facility] CLINIC, [facility] 2 2 O MEDICAL HEALTH ASSOCIATE OFFICE 22902 MONTICELL OUTPATIEN 2 2 O MEDICAL T VISIT 15 ASSOCIATE MINUTES OFFICE 57513 RONALDRSET OUTPATIEN 2 2 CARDIOLOG T VISIT Y 15 MINUTES CLINIC, [facility] 2 2 O MEDICAL HEALTH ASSOCIATE OFFICE 95162 WOOCHE[facility]KHLL OUTPATIEN 2 2 O MEDICAL T VISIT 15 ASSOCIATE MINUTES CLINIC, [facility] 2 2 O MEDICAL HEALTH ASSOCIATE OFFICE 64646 [facility] 2 2 O MEDICAL T VISIT 15 ASSOCIATE MIN[facility]ES [facility] 85600 [facility] V[facility] 15 ASSOCIATE MINUTES CLIN[facility], [facility] 2 2 O MEDICAL HEALTH ASSOCIATE OFFICE 39856 CHIDI GOYAL OUTPATIEN 2 2 CARDIOLOG T VISIT Y 15 MINUTES OFFICE 33102 ARGENISET OUTPATIEN 2 2 CARDIOLOG T VISIT Y 15 MINUTES OFFICE 16341 ESSIE CALL OUTPATIEN 2 2 T VISIT 15 MINUTES [facility]OSP[facility] - 2 2 [facility] OUTPATIEN D T [facility] OFFICE 61578 [facility] 2 2 O MEDICAL T VISIT 15 ASSOCIATE MINUTES CLINIC, [facility] 2 2 O MEDICAL HEALTH ASSOCIATE OFFICE 54686 ESSIE CALL OUTPATIEN 2 2 T NEW 30 MINUTES CLINIC, [facility] 2 2 O MEDICAL HEALTH ASSOCIATE [facility] 97191 [facility] O MEDICAL T VISIT 15 ASSOCIATE MINUTES HOME PERSONAL HEALTH, 2 2 TOUCH OUTPATIEN HOME CARE T OF EMERGENCY 18733 PRIETO KELLEY DEPT 2 2 EMERGENCY KOL VISIT SERVICES HIGH SEVERITY& THREAT [facility] - 2 2 [place] OUTPATIEN D T REGIONAL HOS EMERGENCY 44099 [facility] 2 2 [place] DEPARTMEN D T VISIT REGIONAL HIGH/URGE HOS NT SEVERITY CLINIC, [facility] 2 2 O MEDICAL HEALTH ASSOCIATE OFFICE 34518 [facility] 2 2 O MEDICAL T VISIT 15 ASSOCIATE MINUTES [facility]OSP[facility] - 2 2 [place] OUTPATIEN D T REGIONAL HOS EMERGENCY 97578 [facility] 2 2 [place] DEPARTMEN D T VISIT REGIONAL HIGH/URGE HOS NT SEVERITY EMERGENCY 14751 PRIETO KIMBLE 2 2 EMERGENCY GRE DEPARTMEN SERVICES T VISIT MODERATE SEVERITY EMERGENCY 62611 EMERGENCY SHANKS DEPT 2 2 COVERAGE LYN VISIT HIGH CORPORATI SEVERITY& THREAT [facility]J [facility] [place] ACCESS 2 2 HOSP [facility]PITAL EMERGENCY 99068 [place] 2 2 HOSP INC DEPARTMEN T VISIT HIGH/URGE NT SEVERITY CLINIC, [facility] 2 2 O MEDICAL HEALTH ASSOCIATE OFFICE 60329 [facility] BRIONESPATIEN 2 2 O MEDICAL T VISIT 15 ASSOCIATE MINUTES OFFICE 35975 BALJIT SMILEY OUTPATIEN 2 2 CONUNTY CONUNTY T VISIT 5 HEALTH HEALTH MINUTES DEPARTM DEPARTM OFFICE 00120 BALJIT BALJIT OUTPATIEN 2 2 CONUNTY CONUNTY T VISIT HEALTH HEALTH 10 DEPARTM DEPART MINUTES CLINIC, [facility] 2 2 O MEDICAL HEALTH ASSOCIATE OFFICE 57356 [facility] OUTPATIEN 2 2 O MEDICAL T VISIT 10 ASSOCIATE MINUTES OFFICE 27308 [facility] OUTPATIEN 2 2 O MEDICAL T VISIT 25 ASSOCIATE MINUTES CLINIC, [facility] 2 2 O MEDICAL HEALTH ASSOCIATE CLINIC, [facility] 2 2 O MEDICAL HEALTH ASSOCIATE OFFICE 67979 [facility] OUTPATIEN 2 2 O MEDICAL T VISIT 15 ASSOCIATE MINUTES OFFICE 30867 SHARAN TSANG OUTPATIEN 2 2 JAM JAM T VISIT 15 MINUTES EMERGENCY 71879 EMERGENCY SHANKS DEPT 2 2 COVERAGE LYN VISIT HIGH CORPORATI SEVERITY& THREAT FUNCJ EMERGENCY 57040 [facility] 2 2 HOSP INC DEPARTMEN T VISIT HIGH/URGE NT SEVERITY CRITICAL [facility] ACCESS 2 2 HOSP INC HOSPITAL OFFICE 75496 [facility] ANSELMOPATIEN 2 2 O MEDICAL T VISIT 15 ASSOCIATE MINUTES CLINIC, [facility] 2 2 O MEDICAL HEALTH ASSOCIATE CLINIC, [facility] 2 2 O MEDICAL HEALTH ASSOCIATE OFFICE 58562 [facility] OUTPATIEN 2 2 O MEDICAL T VISIT 15 ASSOCIATE MINUTES OFFICE 23137 [facility] OUTPATIEN 2 2 O MEDICAL T VISIT 15 ASSOCIATE MINUTES CLINIC, [facility] 2 2 O MEDICAL HEALTH ASSOCIATE HOME PERSONAL HEALTH, 2 2 TOUCH OUTPATIEN HOME CARE T OF OFFICE 94114 [facility] ANSELMOPATIEN 2 2 O MEDICAL T VISIT 15 ASSOCIATE MINUTES CLINIC, [facility] 2 2 O MEDICAL HEALTH ASSOCIATE OFFICE 73240 [facility] OUTPATIEN 2 2 O MEDICAL T VISIT 10 ASSOCIATE MINUTES CLINIC, [facility] 2 2 O MEDICAL HEALTH ASSOCIATE CLINIC, [facility] 1 1 O MEDICAL HEALTH ASSOCIATE OFFICE 09243 [facility] OUTPATIEN 1 1 O MEDICAL T VISIT 15 ASSOCIATE MINUTES OFFICE 91786 MALLY HYLTON OUTPATIEN 1 1 MEDICAL FISTER T VISIT SERV CHRIS 40 FOUNDATIO MINUTES OFFICE 83116 LONG ALFARO OUTPATIEN 1 1 O MEDICAL JUAN T VISIT 15 ASSOCIATE MINUTES OFFICE 02214 [facility] BRIONESPATIEN 1 1 O MEDICAL T VISIT 15 ASSOCIATE MINUTES CLINIC, [facility] 1 1 O MEDICAL HEALTH ASSOCIATE OFFICE 84738 [facility] OUTPATI[facility] 1 1 O MEDICAL T VISIT 15 ASSOCIATE MINUTES CLINIC, [facility] 1 1 O MEDICAL HEALTH ASSOCIATE OFFICE 82495 [facility] 1 1 O MEDICAL T VISIT 15 ASSOCIATE MINUTES CLINIC, [facility] 1 1 O MEDICAL HEALTH ASSOCIATE OFFICE 05879 [facility] 1 1 O MEDICAL T VISIT 15 ASSOCIATE MINUTES CLINIC, [facility] 1 1 O MEDICAL HEALTH ASSOCIATE AMBULATOR [facility] Y SURGERY 1 1 HOSP INC CENTER EMERGENCY 84113 [facility] DEPT 1 1 HOSP INC VISIT HIGH SEVERITY& THREAT FUNCJ EMERGENCY 96507 EMERGENCY ARANA 1 1 COVERAGE SEA DEPARTMEN T VISIT CORPORATI HIGH/URGE NT SEVERITY HOSPITAL [facility] - 1 1 Y INPATIENT HOSPITAL EMERGENCY 92950 EMERGENCY [facility] DEPT 1 1 COVERAGE VISIT HIGH CORPORATI SEVERITY& THREAT FUNCJ CRITICAL [facility] ACCESS 1 1 HOSP [facility] HOSPITAL EMERGENCY 75203 [facility] 1 1 HOSP INC DEPARTMEN T VISIT MODERATE SEVERITY OFFICE 98139 [facility] 1 1 O MEDICAL T VISIT 15 ASSOCIATE MINUTES CLINIC, [facility] 1 1 O MED[facility] HEALTH [facility]OCIATE [facility] 73545 [facility] O MEDICAL T VISIT 15 ASSOCIATE MINUTES CLINIC, [facility] 1 1 O MEDICAL HEALTH ASSOCIATE CLINIC, [facility] 1 1 O MEDICAL HEALTH ASSOCIATE OFFICE 53939 [facility] 1 1 O MEDICAL T VISIT 15 ASSOCIATE MINUTES OFFICE 52210 WOOICELL OUTPATIEN 1 1 O MEDICAL T VISIT 15 ASSOCIATE MINUTES CLINIC, [facility] 1 1 O MEDICAL HEALTH ASSOCIATE CRITICAL [facility] [place] ACCESS 1 1 HOSP [facility] HOSPITAL OFFICE 23799 WOOICELL OUTPATIEN 1 1 O MEDICAL T VISIT 15 ASSOCIATE MINUTES CLINIC, [facility] 1 1 O MEDICAL HEALTH ASSOCIATE OFFICE 93295 WOOICELL OUTPATIEN 1 1 O MEDICAL T VISIT 15 ASSOCIATE MINUTES CLINIC, [facility] 1 1 O MEDICAL HEALTH ASSOCIATE EMERGENCY 93327 [facility] 1 1 HOSP [facility] DEPARTMEN T VISIT HIGH/URGE NT SEVERITY EMERGENCY 26935 [facility] [place] DEPT 1 1 COVERAGE ELZ VISIT HIGH CORPORATI SEVERITY& THREAT FUNCJ CRITICAL [facility] ACCESS 1 1 [facility] H[facility] HOME PERSONAL HEALTH, 1 1 TOUCH OUTPATIEN HOME CARE T OF OFFICE 07264 JARRODLL OUTPATIEN 1 1 O MEDICAL T VISIT 15 ASSOCIATE MINUTES CLINIC, [facility] 1 1 O MEDICAL HEALTH ASSOCIATE EMERGENCY 56339 EMERGENCY KNIGHT TATUM 1 1 COVERAGE DEPARTMEN T VISIT CORPORATI MODERATE SEVERITY CRITICAL [facility] ACCESS 1 1 HOSP [facility]OSPITAL EMERGENCY 60743 [facility] 1 1 HOSP INC DEPARTMEN T VISIT MODERATE SEVERITY EMERGENCY 66658 EMERGENCY [place] JAM 1 1 COVERAGE DEPARTMEN T VISIT CORPORATI HIGH/URGE NT SEVERITY CRITICAL [facility] ACCESS 1 1 HOSP [facility] CRITICAL [facility] ACCESS 1 1 HOSP [facility] HOSPITAL EMERGENCY 18137 [facility] 1 1 HOSP INC DEPARTMEN T VISIT MODERATE SEVERITY EMERGENCY 13115 EMERGENCY KNIGHT TATUM 1 1 COVERAGE DEPARTMEN T VISIT CORPORATI HIGH/URGE NT SEVERITY CLINIC, [facility] 1 1 O MEDICAL HEALTH ASSOCIATE OFFICE 37508 [facility] OUTPATIEN 1 1 O MEDICAL T VISIT 15 ASSOCIATE MINUTES EMERGENCY 09681 EMERGENCY HUSSEIN COR DEPT 1 1 COVERAGE VISIT HIGH CORPORATI SEVERITY& THREAT FUNCJ CRITICAL [facility] ACCESS 1 1 HOSP [facility] HOSPITAL EMERGENCY 44796 [facility] 1 1 HOSP [facility] DEPARTMEN T VISIT MODERATE SEVERITY CLINIC[facility] 1 1 O MEDICAL HEALTH ASSOCIATE OFFICE 41766 [facility] OUTPATIEN 1 1 O MEDICAL T VISIT 15 ASSOCIATE MINUTES CLINIC, [facility] 1 1 O MEDICAL HEALTH ASSOCIATE OFFICE 23649 [facility] OUTPATI[facility] 1 1 O MEDICAL T VISIT 15 ASSOCIATE MINUTES HOME PERSONAL HEALTH, 1 1 TOUCH OUTPATIEN HOME CARE T [facility] OFFICE 30698 [facility] CONUNTY CONUNTY T VISIT 5 HEALTH HEALTH MINUTES DEPARTM DEPARTM OFFICE 34515 [facility] CONUNTY CONUNTY T VISIT HEALTH HEALTH 10 DEPARTM DEPARTM MINUTES CLINIC, [facility] 1 1 O MEDICAL HEALTH ASSOCIATE OFFICE 78376 [facility] MONETTM[facility] OUTPATIEN 1 1 O MEDICAL T VISIT 15 ASSOCIATE MINUTES CRITICAL [facility] ACCESS 1 1 HOSP [facility] HOSPITAL EMERGENCY 52626 EMERGENCY [place] 1 1 COVERAGE GLE DEPARTMEN T VISIT CORPORATI HIGH/URGE NT SEVERITY CLINIC, [facility] 0 0 O MEDICAL HEALTH ASSOCIATE OFFICE 53593 JARRODLL OUTPATIEN 0 0 O MEDICAL T VISIT 15 ASSOCIATE MINUTES OFFICE 97474 [facility] MONETTC[facility] OUTPATIEN 0 0 O MEDICAL T VISIT 15 ASSOCIATE MINUTES CLINIC, [facility] 0 0 O MEDICAL HEALTH ASSOCIATE OFFICE 22134 [facility] OUTPATIEN 0 0 O MEDICAL T VISIT 15 ASSOCIATE MINUTES CLINIC, [facility] 0 0 O MEDICAL HEALTH ASSOCIATE HOME PERSONAL HEALTH, 0 0 TOUCH OUTPATIEN HOME CARE T [facility] TABOR - 0 0 [facility] D REGIONAL HOS CRITICAL [facility] ACCESS 0 0 HOSP [facility] HOSPITAL EMERGENCY 58431 [facility] 0 0 HOSP INC DEPARTMEN T VISIT HIGH/URGE NT SEVERITY OFFICE 02260 [facility] OUTPATIEN 0 0 O MEDICAL T VISIT 15 ASSOCIATE MINUTES CL[facility], [facility] 0 0 O MEDICAL HEALTH ASSOCIATE OFFICE 25159 [facility] OUTPATIEN 0 0 O MEDICAL T VISIT 15 ASSOCIATE MINUTES CLINIC, [facility] 0 0 O MEDICAL HEALTH ASSOCIATE EMERGENCY 55905 [facility] 0 0 HOSP INC DEPARTMEN T VISIT HIGH/URGE NT SEVERITY EMERGENCY 64892 EMERGENCY DUKES JENNIFER DEPT 0 0 COVERAGE VISIT HIGH CORPORATI SEVERITY& THREAT FUNCJ CRITICAL [facility] ACCESS 0 0 HOSP [facility] CL[facility]IC, [facility] 0 0 O MEDICAL HEALTH ASSOCIATE OFFICE 59995 [facility] OUTPATIEN 0 0 O MEDICAL T VISIT 15 ASSOCIATE MINUTES CRITICAL [facility] ACCESS 0 0 HOSP [facility]PITAL EMERGENCY 05702 [facility] 0 0 HOSP INC DEPARTMEN T VISIT MODERATE SEVERITY EMERGENCY 17868 [facility] 0 0 HOSP INC DEPARTMEN T VISIT LIMITED/M INOR PROB CRITICAL [place] [facility] ACCESS 0 0 [facility] OFFICE 87626 [facility] 0 0 O MEDICAL T VISIT 15 ASSOCIATE MINUTES S CLINIC, [facility] 0 0 O MEDICAL HEALTH ASSOCIATE S OFFICE 89072 [facility] 0 0 O MEDICAL T VISIT 15 ASSOCIATE MINUTES S CLINIC[facility] 0 0 O MEDICAL HEALTH ASSOCIATE S CL[facility], [facility] 0 0 O MEDICAL HEALTH ASSOCIATE S OFFICE [facility]01 [facility] O MEDICAL T VISIT 15 ASSOCIATE MINUTES S CLINIC, [facility] 0 0 O MEDICAL HEALTH ASSOCIATE S EMERGENCY 83187 EMERGENCY HUSSEIN COR 0 0 COVERAGE DEPARTMEN T VISIT CORPORATI HIGH/URGE NT SEVERITY CRITICAL [facility] ACCESS 0 0 HOSP [facility]OSPITAL EMERGENCY 30470 [facility] 0 0 HOSP [facility] DEPARTMEN T VISIT MODERATE SEVERITY OFFICE 33959 SHARAN TSANG OUTPATIEN 0 0 CASTRO Ibrahim T VISIT 15 MINUTES OFFICE 25997 SHARAN TSANG OUTPATIEN 9 9 CASTRO Ibrahim T VISIT 25 MINUTES OFFICE 32528 DAVEY HANNA 9 9 CARDIOLOG WOOD Jones T VISIT Y PSC 15 MINUTES CLINIC, [facility] 9 9 O MEDICAL HEALTH ASSOCIATE S OFFICE 30401 [facility] MARISCAL 9 9 O MEDICAL T VISIT 15 ASSOCIATE MINUTES HOSPITAL [facility] - OTHER 9 9 HOSP INC OFFICE 89131 DAVEY WANG 9 9 O MEDICAL YANIRE T VISIT 15 ASSOCIATE MINUTES S EMERGENCY 56642 [place] 9 9 HOSP INC DEPARTMEN T VISIT HIGH/URGE NT SEVERITY EMERGENCY 06275 EMER[facility] [place], DEPT 9 9 COVERAGE ELZER T VISIT HIGH CORPORATI SEVERITY& ON INC THREAT FUNCJ CRITICAL [facility] [place] ACCESS 9 9 HOSP [facility] CRITICAL [facility] [place] ACCESS 9 9 HOSP [facility] OFFICE 19400 DAVEY WANG 9 9 O MEDICAL YANIRE T VISIT 15 ASSOCIATE MINUTES S [facility] 9 9 O MEDICAL HEALTH ASSOCIATE S [facility] - 9 9 JUSTINE BRIONESPATILAURA D T [facility] CRITICAL [place] ACCESS 9 9 HOSP [facility]OSPITAL EMERGENCY 82323 EMERGENCY [place], DEPT 9 9 COVERAGE CASTRO R VISIT HIGH CORPORATI SEVERITY& ON INC THREAT FUNJ EMERGENCY 57264 [place] 9 9 HOSP INC DEPARTMEN T VISIT LOW/MODER SEVERITY CLINIC, [facility] 9 9 O MEDICAL HEALTH ASSOCIATE S OFFICE 55223 DAVEY WANG 9 9 O MEDICAL YANIRE T VISIT 15 ASSOCIATE MINUTES S OFFICE 29454 [facility] OUTPATIEN 9 9 NATHALIE NATHALIE T VISIT 10 MINUTES OFFICE 80513 [facility] MARISCAL 9 9 HEALTH CONUNTY T VISIT 5 [facility] MIN[facility]ES BANK ACCT DEPARTMEN T OFFICE 30533 [facility] MARISC[facility] 9 9 HEALTH CONUNTY T VISIT [facility] 10 BANK ACCT DEPARTMEN MINUTES T OFFICE 26644 DAVEY WANG 9 9 O MEDICAL YANIRE T VISIT 15 ASSOCIATE MINUTES S OFFICE 26554 DAVEY WANG 9 9 O MEDICAL YANIRE T VISIT 15 ASSOCIATE MINUTES S OFFICE 32805 CHIDI FERNANDEZDAVEY 9 9 CARDIOLOG THEO T VISIT Y 15 MINUTES OFFICE 08951 AIDEN WOLFE OUTPATIEN 9 9 ESAESTELA SEE T VISIT ER J ER J 10 MINUTES HOSPITAL ENRIQUE - 9 9 CO OUTPATIEN HOSPITAL T INC OFFICE 30175 LUPILLO WESLEY OUTPATIEN 9 9 RUSTY OJEDA L T VISIT 15 MINUTES OFFICE 84194 DAVEY WANG 8 8 O MEDICAL YANIRE T VISIT 15 ASSOCIATE MINUTES HOSPITAL [facility] - OTHER 8 8 HOSP [facility] CRITICAL [facility] ACCESS 8 8 HOSP [facility] OFFICE 70673 LUPILLO WESLEY OUTPATIEN 8 8 RUSTY L RUSTY L T NEW 45 MINUTES CRITICAL [facility] ACCESS 8 8 HOSP [facility] OFFICE 35364 SHARAN TSANG OUTPATIEN 8 8 CASTRO Ibrahim T VISIT 25 MINUTES CRITICAL [facility] ACCESS 8 8 HOSP [facility] EMERGENCY 71854 [facility] 8 8 HOSP [facility] DEPARTMEN T VISIT MODERATE SEVERITY OFFICE 58107 DAVEY WANG 8 8 O MEDICAL YANIRE T VISIT 15 ASSOCIATE MINUTES S EMERGENCY 58470 [facility] 8 8 HOSP [facility] DEPARTMEN T VISIT HIGH/URGE NT SEVERITY EMERGENCY 42009 EMERGENCY [place], DEPT 8 8 MATIAS Pruitt VISIT HIGH CORPORATI SEVERITY& ON INC THREAT FUNCJ CRITICAL [facility] ACCESS 8 8 HOSP [facility]OSPITAL OFFICE 06223 DAVEY WANG 8 8 O MEDICAL YANIRE T VISIT 15 ASSOCIATE MINUTES HOSPITAL TABOR - 8 8 [facility] EMERGENCY 90196 [facility] DEPT 8 8 HOSP INC VISIT HIGH SEVERITY& THREAT [facility] HOSPITAL TABOR - 8 8 [facility] INPATIENT [facility] CRITICAL [facility] ACCESS 8 8 HOSP [facility]OSPITAL OFFICE 46834 [facility] 8 8 O MEDICAL T VISIT 15 ASSOCIATE MINUTES S [facility] 8 8 O MEDICAL HEALTH ASSOCIATE S [facility] 8 8 O MEDICAL HEALTH ASSOCIATE S OFFICE 55847 [facility] 8 8 O MEDICAL T VISIT 15 ASSOCIATE MINUTES S OFFICE 88631 SHARAN TSANG OUTPATIEN 8 8 CASTRO H CASTRO H T VISIT 15 MINUTES OFFICE 84613 DAVEY WANG 8 8 O MEDICAL YANIRE T VISIT 15 ASSOCIATE MINUTES S OFFICE 18984 DAVEY PERDUE 8 8 CARDIOLOG KHALED T VISIT Y 15 MINUTES OFFICE 15818 [facility] 8 8 NATHALIE ZELAYA T VISIT 10 MINUTES OFFICE 08969 DAVEY PERDUE 8 8 CARDIOLOG KHALED T VISIT Y 15 MINUTES EMERGENCY 78398 [facility] 8 8 HOSP INC DEPARTMEN T VISIT HIGH/URGE NT SEVERITY CRITICAL [facility] ACCESS 8 8 HOSP [facility]OSPITAL OFFICE 60081 DAVEY WANG 8 8 O MEDICAL YANIRE T VISIT 15 ASSOCIATE MINUTES S OFFICE 62966 DHS/[facility] OUTPATIEN 8 8 HEALTH CONUNTY T VISIT 5 [facility] MINUTES BANK ACCT DEPARTMEN T OFFICE 78482 DHS/CO [facility] OUTPATIEN 8 8 HEALTH CONUNTY T VISIT [facility] 10 BANK ACCT DEPARTMEN MINUTES T OFFICE 44399 DAVEY PERDUE 8 8 CARDIOLOG KHALED T VISIT Y 15 MINUTES OFFICE 98162 [facility] 8 8 NATHALIE ZELAYA T VISIT 10 MINUTES OFFICE 38615 [facility] MARISCAL 8 8 CARDIOLOG CARDIOLOG T VISIT Y Y 15 MINUTES
--- OUTSIDE RECORDS SUMMARY | 2016-12-14 01:57 | External Medical Summary Rpt | CCD ---
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 NONEMERGE A0100 [facility] 4 TRANS[facility] HEALTH TRANSPORT ENTERPRIS MANAGEMEN ATION; ES T, TAXI NONEMERGE A0100 [facility] 4 TRANS[facility] HEALTH TRANSPORT ENTERPRIS MANAGEMEN ATION; ES T, TAXI NONEMERGE A0100 [facility] 4 TRANSIT HEALTH TRANSPORT ENTERPRIS MANAGEMEN ATION; ES T, TAXI NONEMERGE A0100 [facility] 4 TRANSIT HEALTH TRANSPORT ENTERPRIS MANAGEMEN ATION; ES T, TAXI NONEMERGE A0100 [facility] 4 TRANS[facility] HEALTH TRANSPORT ENTERPRIS MANAGEMEN ATION; ES T, TAXI NONEMERGE A0100 [facility] 4 TRANSIT HEALTH TRANSPORT ENTERPRIS MANAGEMEN ATION; ES T, TAXI NONEMERGE A0100 [facility] 4 TRANSIT HEALTH TRANSPORT ENTERPRIS MANAGEMEN ATION; ES T, TAXI NONEMERGE A0100 [facility] 4 TRANSIT HEALTH TRANSPORT ENTERPRIS MANAGEMEN ATION; ES T, TAXI NONEMERGE A0100 [facility] 4 [facility] TRANSPORT ENTERPRIS MANAGEMEN ATION; ES T, T[facility]I HOME CARE S5108 [facility] [address] [facility] AREA D AREA CARE AGENCY AGENCY CLIENT PER 15 MIN NONEMERGE A0100 [facility] 4 [facility] TRANSPORT ENTERPRIS MANAGEMEN ATION; ES T, TAXI NONEMERGE A0100 [facility] 4 TRANS[facility] HEALTH TRANSPORT ENTERPRIS MANAGEMEN ATION; ES T, TAXI NONEMERGE A0100 [facility] 4 [facility]ANS[facility] TRANSPORT ENTERPRIS MANAGEMEN ATION; ES T, TAXI NONEMERGE A0100 [facility] 4 TRANS[facility]ALTH TRANSPORT ENTERPRIS MANAGEMEN ATION; ES T, TAXI NONEMERGE A0100 [facility] 4 [facility]ALTH TRANSPORT ENTERPRIS MANAGEMEN ATION; ES T, TAXI O2 CONC 1 E1390 [facility] 4 MEDICAL MEDICAL 85%/>02 [facility]; [facility]; [facility] AT [facility] FLW RATE COMPRE 52373 [place] FIGUEROA AUDIOMETR 4 Y THRESHOLD EVAL SP RECOGNIJ TYMPANOME 01991 [place] DOOLEY HENRY TRY 4 NONEMERGE A0100 [facility] 4 [facility] TRANSPORT ENTERPRIS MANAGEMEN ATION; ES T, TAXI NONEMERGE A0100 [facility] 4 TRANS[facility] HEALTH TRANSPORT ENTERPRIS MANAGEMEN ATION; ES T, TAXI NONEMERGE A0100 [facility] 4 TRANS[facility] HEALTH TRANSPORT ENTERPRIS MANAGEMEN ATION; ES T, TAXI NONEMERGE A0100 [facility] 4 [facility]ALTH TRANSPORT ENTERPRIS MANAGEMEN ATION; ES T, TAXI BLD GLU A4253 ARRIVA ARRIVA TEST/REAG 4 MEDICAL MEDICAL T STRIPS HOME BLD GLU MON-50 NORMAL A4256 ARRIVA ARRIVA LOW AND 4 MEDICAL MEDICAL HIGH CALIBRATO R SOLUTION/ CHIPS REPL LIU A4233 ARRIVA ARRIVA ALKALINE 4 MEDICAL MEDICAL NOT J CELL MERON BG MON OWND PT LANCETS A4259 ARRIVA ARRIVA PER BOX 4 MEDICAL MEDICAL OF 100 SPRING-PO A4258 ARRIVA ARRIVA WERED 4 MEDICAL MACHINE WHITENER FOR LANCET EACH NONEMERGE A0100 [facility] 4 [facility] TRANSPORT ENTERPRIS MANAGEMEN ATION; ES T, TAXI HOME CARE S5108 [facility] TRAINING [address] [facility] D AREA D AREA CARE AGENCY AGENCY CLIENT PER 15 MIN NONEMERGE A0100 [facility] 4 [facility] TRANSPORT ENTERPRIS MANAGEMEN ATION; ES T, TAXI NONEMERGE A0100 [facility] 4 TRANS[facility] HEALTH TRANSPORT ENTERPRIS MANAGEMEN ATION; ES T, TAXI NONEMERGE A0100 [facility] 4 [facility]ALTH TRANSPORT ENTERPRIS MANAGEMEN ATION; ES T, TAXI COMPREHEN 61173 [facility] SIVE 4 O MEDICAL O MEDICAL METABOLIC ASSOC LA ASSOC LA PANEL BLOOD 53232 [facility] COUNT 4 O MEDICAL O MEDICAL COMPLETE ASSOC LA ASSOC LA AUTO&AUTO DIFRNTL WBC COLLECTIO 45801 [facility] N VENOUS 4 O MEDICAL O MEDICAL BLOOD ASSOC LA ASSOC LA VENIPUNCT URE NONEMERGE A0100 [facility] 4 TRANSIT HEALTH TRANSPORT ENTERPRIS MANAGEMEN ATION; ES T, TAXI NONEMERGE A0100 [facility] 4 TRANS[facility] HEALTH TRANSPORT ENTERPRIS MANAGEMEN ATION; ES T, TAXI NONEMERGE A0100 [facility] 4 TRANSIT HEALTH TRANSPORT ENTERPRIS MANAGEMEN ATION; ES T, TAXI NONEMERGE A0100 [facility] 4 TRANS[facility] HEALTH TRANSPORT ENTERPRIS MANAGEMEN ATION; ES T, TAXI OBSERVATI 43043 MALLY AMEZQUITA ON CARE 4 MEDICAL AND DISCHARGE SERV FOUNDATIO MANAGEMEN N T INITIAL 42330 [facility] OBSERVATI 4 JACQUIE ON PHYSICIAN CARE/DAY SERVI 70 MINUTES ECHO 89786 MALLY WOODSON TTHRC R-T 4 MEDICAL ALI 2D SERV W/WOM-MOD FOUNDATIO E COMPL N SPEC&COLR D ECG 04371 MALLY MONACO CHI ROUTINE 4 MEDICAL ECG SERV W/LEAST FOUNDATIO 12 LDS N I&R ONLY RADIOLOGI 48780 [place] [facility] C 4 MEDICAL AYA MAR EXAMINATI SERV ON CHEST [place] [address] [facility] SUSIE MAR HEAD/BRAI 4 IMAGING & N W/O CONTRAST INTERVENT MATERIAL I AMB A0427 [facility] SERVICE 4 EMS EMS ALS EMERGENCY TRANSPORT LEVEL 1 NONEMERGE A0100 [facility] 4 [facility] TRANSPORT ENTERPRIS MANAGEMEN ATION; ES T, TAXI GROUND A0425 [facility] MILEAGE 4 EMS EMS PER STATUTE MILE NONEMERGE A0100 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 4 [facility] TRANSPORT ENTERPRIS MANAGEMEN ATION; ES T, TAXI HOME CARE S5108 [facility] 4 [facility] D AREA D AREA CARE AGENCY AGENCY CLIENT PER 15 MIN NONEMERGE A0100 [facility] 4 TRANS[facility] HEALTH TRANSPORT ENTERPRIS MANAGEMEN ATION; ES T, TAXI NONEMERGE A0100 [facility] 4 TRANSIT HEALTH TRANSPORT ENTERPRIS MANAGEMEN ATION; ES T, TAXI NONEMERGE A0100 [facility] 4 TRANSIT HEALTH TRANSPORT ENTERPRIS MANAGEMEN ATION; ES T, TAXI NONEMERGE A0100 [facility] 4 TRANSIT HEALTH TRANSPORT ENTERPRIS MANAGEMEN ATION; ES T, TAXI NONEMERGE A0100 [facility] 4 TRANSIT HEALTH TRANSPORT ENTERPRIS MANAGEMEN ATION; ES T, TAXI O2 CONC 1 E1390 [facility] 4 MEDICAL MEDICAL 85%/>02 [facility]; [facility]; CONC AT [facility] FLW RATE NONEMERGE A0100 [facility] 4 TRANSIT HEALTH TRANSPORT ENTERPRIS MANAGEMEN ATION; ES T, TAXI NONEMERGE A0100 [facility] 4 TRANSIT HEALTH TRANSPORT ENTERPRIS MANAGEMEN ATION; ES T, TAXI NONEMERGE A0100 [facility] 4 TRANSIT HEALTH TRANSPORT ENTERPRIS MANAGEMEN ATION; ES T, TAXI NONEMERGE A0100 [facility] 4 TRANSIT HEALTH TRANSPORT ENTERPRIS MANAGEMEN ATION; ES T, TAXI NONEMERGE A0100 [facility] 4 TRANSIT HEALTH TRANSPORT ENTERPRIS MANAGEMEN ATION; ES T, TAXI HOME CARE S5108 [facility] 4 [facility] D AREA D AREA CARE AGENCY AGENCY CLIENT PER 15 MIN NONEMERGE A0100 [facility] 4 [facility] HEALTH TRANSPORT ENTERPRIS MANAGEMEN ATION; ES T, TAXI NONEMERGE A0100 [facility] 4 TRANSIT HEALTH TRANSPORT ENTERPRIS MANAGEMEN ATION; ES T, TAXI NONEMERGE A0100 [facility] 4 TRANSIT HEALTH TRANSPORT ENTERPRIS MANAGEMEN ATION; ES T, TAXI NONEMERGE A0100 [facility] 4 TRANSIT HEALTH TRANSPORT ENTERPRIS MANAGEMEN ATION; ES T, TAXI DEBRIDEME 56658 [facility] NAIL 4 D FOOT & DEN ANY ANKLE METHOD CENT 6/> NONEMERGE A0100 [facility] 4 [facility]ANS[facility] HEALTH TRANSPORT ENTERPRIS MANAGEMEN ATION; ES T, TAXI NONEMERGE A0100 [facility] 4 TRANSIT HEALTH TRANSPORT ENTERPRIS MANAGEMEN ATION; ES T, TAXI NONEMERGE A0100 [facility] 4 TRANSIT HEALTH TRANSPORT ENTERPRIS MANAGEMEN ATION; ES T, TAXI NONEMERGE A0100 [facility] 4 TRANSIT HEALTH TRANSPORT ENTERPRIS MANAGEMEN ATION; ES T, TAXI NONEMERGE A0100 [facility] 4 TRANSIT HEALTH TRANSPORT ENTERPRIS MANAGEMEN ATION; ES T, TAXI NONEMERGE A0100 [facility] 4 TRANS[facility] HEALTH TRANSPORT ENTERPRIS MANAGEMEN ATION; ES T, TAXI HOME CARE S5108 [facility] [address] [facility] AREA AREA CARE AGENCY AGENCY CLIENT PER 15 MIN NONEMERGE A0100 [facility] 4 TRANSIT HEALTH TRANSPORT ENTERPRIS MANAGEMEN ATION; ES T, TAXI NONEMERGE A0100 [facility] 4 TRANSIT HEALTH TRANSPORT ENTERPRIS MANAGEMEN ATION; ES T, TAXI NONEMERGE A0100 [facility] 4 TRANSIT HEALTH TRANSPORT ENTERPRIS MANAGEMEN ATION; ES T, TAXI NONEMERGE A0100 [facility] 4 TRANSIT HEALTH TRANSPORT ENTERPRIS MANAGEMEN ATION; ES T, TAXI NONEMERGE A0100 [facility] 4 TRANSIT HEALTH TRANSPORT ENTERPRIS MANAGEMEN ATION; ES T, TAXI O2 CONC 1 E1390 [facility] 4 MEDICAL MEDICAL 85%/>02 LLC; LLC; CON[facility] AT [facility] FLW RATE NONEMERGE A0100 [facility] 4 TRANS[facility] HEALTH TRANSPORT ENTERPRIS MANAGEMEN ATION; ES T, TAXI NONEMERGE A0100 [facility] 4 TRANSIT HEALTH TRANSPORT ENTERPRIS MANAGEMEN ATION; ES T, TAXI NONEMERGE A0100 [facility] 4 TRANSIT HEALTH TRANSPORT ENTERPRIS MANAGEMEN ATION; ES T, TAXI NONEMERGE A0100 [facility] 4 TRANSIT HEALTH TRANSPORT ENTERPRIS MANAGEMEN ATION; ES T, TAXI NONEMERGE A0100 [facility] 4 TRANS[facility] HEALTH TRANSPORT ENTERPRIS MANAGEMEN ATION; ES T, TAXI HOME CARE S5108 [facility] TRAINING [address] [facility] AREA AREA CARE AGENCY AGENCY CLIENT PER 15 MIN NONEMERGE A0100 [facility] 4 TRANSIT HEALTH TRANSPORT ENTERPRIS MANAGEMEN ATION; ES T, TAXI NONEMERGE A0100 [facility] 4 TRANSIT HEALTH TRANSPORT ENTERPRIS MANAGEMEN ATION; ES T, TAXI NONEMERGE A0100 [facility] 4 TRANSIT HEALTH TRANSPORT ENTERPRIS MANAGEMEN ATION; ES T, TAXI NONEMERGE A0100 [facility] 4 TRANSIT HEALTH TRANSPORT ENTERPRIS MANAGEMEN ATION; ES T, TAXI NONEMERGE A0100 [facility] 4 TRANSIT HEALTH TRANSPORT ENTERPRIS MANAGEMEN ATION; ES T, TAXI NONEMERGE A0100 [facility] 4 TRANSIT HEALTH TRANSPORT ENTERPRIS MANAGEMEN ATION; ES T, TAXI NONEMERGE A0100 [facility] 4 TRANSIT HEALTH TRANSPORT ENTERPRIS MANAGEMEN ATION; ES T, TAXI NONEMERGE A0100 [facility] 4 TRANSIT HEALTH TRANSPORT ENTERPRIS MANAGEMEN ATION; ES T, TAXI NONEMERGE A0100 [facility] 4 TRANSIT HEALTH TRANSPORT ENTERPRIS MANAGEMEN ATION; ES T, TAXI NONEMERGE A0100 [facility] 4 TRANSIT HEALTH TRANSPORT ENTERPRIS MANAGEMEN ATION; ES T, TAXI NONEMERGE A0100 [facility] 4 TRANSIT HEALTH TRANSPORT ENTERPRIS MANAGEMEN ATION; ES T, TAXI HOME CARE S5108 [facility] [address] [facility] AREA D AREA CARE AGENCY AGENCY CLIENT PER 15 MIN NONEMERGE A0100 [facility] 4 [facility] HEALTH TRANSPORT ENTERPRIS MANAGEMEN ATION; ES T, TAXI NONEMERGE A0100 [facility] 4 TRANSIT HEALTH TRANSPORT ENTERPRIS MANAGEMEN ATION; ES T, TAXI NONEMERGE A0100 [facility] 4 TRANSIT HEALTH TRANSPORT ENTERPRIS MANAGEMEN ATION; ES T, TAXI NONEMERGE A0100 [facility] 4 TRANSIT HEALTH TRANSPORT ENTERPRIS MANAGEMEN ATION; ES T, TAXI NONEMERGE A0100 [facility] 4 TRANSIT HEALTH TRANSPORT ENTERPRIS MANAGEMEN ATION; ES T, TAXI NONEMERGE A0100 [facility] 4 TRANSIT HEALTH TRANSPORT ENTERPRIS MANAGEMEN ATION; ES T, TAXI O2 CONC 1 E1390 [facility] 4 MEDICAL MEDICAL 85%/>02 LLC; LLC; [facility] FLW RATE NONEMERGE A0100 [facility] 4 TRANSIT HEALTH TRANSPORT ENTERPRIS MANAGEMEN ATION; ES T, TAXI NONEMERGE A0100 [facility] 4 TRANSIT HEALTH TRANSPORT ENTERPRIS MANAGEMEN ATION; ES T, TAXI NONEMERGE A0100 [facility] 4 TRANSIT HEALTH TRANSPORT ENTERPRIS MANAGEMEN ATION; ES T, TAXI NONEMERGE A0100 [facility] 4 TRANSIT HEALTH TRANSPORT ENTERPRIS MANAGEMEN ATION; ES T, TAXI HOME CARE S5108 [facility] 4 [facility] HOME D AREA D AREA CARE AGENCY AGENCY CLIENT PER 15 MIN NONEMERGE A0100 [facility]IAN FLY 4 TRANSIT HEALTH TRANSPORT ENTERPRIS MANAGEMEN ATION; ES T, TAXI DISPBL T4535 PERSONAL PERSONAL LINER/JARED 4 TOUCH TOUCH ELD/GUARD HOME LONGTERM CARE /PAD/UNDG OF OF RMNT INCONT EA NONEMERGE A0100 [facility] 4 TRANS[facility] HEALTH TRANSPORT ENTERPRIS MANAGEMEN ATION; ES T, TAXI NONEMERGE A0100 [facility] 4 TRANSIT HEALTH TRANSPORT ENTERPRIS MANAGEMEN ATION; ES T, TAXI NONEMERGE A0100 [facility] 4 TRANSIT HEALTH TRANSPORT ENTERPRIS MANAGEMEN ATION; ES T, TAXI NONEMERGE A0100 [facility] 4 TRANSIT HEALTH TRANSPORT ENTERPRIS MANAGEMEN ATION; ES T, TAXI NONEMERGE A0100 [facility] 4 TRANSIT HEALTH TRANSPORT ENTERPRIS MANAGEMEN ATION; ES T, TAXI NONEMERGE A0100 [facility] 4 TRANSIT HEALTH TRANSPORT ENTERPRIS MANAGEMEN ATION; ES T, TAXI NONEMERGE A0100 [facility] 4 TRANSIT HEALTH TRANSPORT ENTERPRIS MANAGEMEN ATION; ES T, TAXI NONEMERGE A0100 [facility] 4 TRANSIT HEALTH TRANSPORT ENTERPRIS MANAGEMEN ATION; ES T, TAXI NONEMERGE A0100 [facility] 4 TRANSIT HEALTH TRANSPORT ENTERPRIS MANAGEMEN ATION; ES T, TAXI HOME CARE S5108 [employer] [facility] 4 [employer] HOME D AREA D AREA CARE AGENCY AGENCY CLIENT PER 15 MIN NONEMERGE A0100 [facility] 4 [facility] TRANSPORT ENTERPRIS MANAGEMEN ATION; ES T, TAXI SKIN TEST 15204 [facility], [facility] 4 [facility] SIS DEPARTM DEPARTM INTRADERM AL NONEMERGE A0100 [facility] 4 [facility] TRANSPORT ENTERPRIS MANAGEMEN ATION; ES T, [facility] NONEMERGE A0100 [facility] 4 [facility] TRANSPORT ENTERPRIS MANAGEMEN ATION; ES T, [facility] NONEMERGE A0100 [facility] 4 TRANS[facility] HEALTH TRANSPORT ENTERPRIS MANAGEMEN ATION; ES T, [facility] NONEMERGE A0100 [facility] 4 TRANS[facility] HEALTH TRANSPORT ENTERPRIS MANAGEMEN ATION; ES T, [facility]I NONEMERGE A0100 [facility] 4 TRANSIT HEALTH TRANSPORT ENTERPRIS MANAGEMEN ATION; ES T, [facility] O2 CONC 1 E1390 [facility] 4 MEDICAL MEDICAL 85%/>02 LLC; LLC; [facility] AT [facility] FLW RATE NONEMERGE A0100 [facility] 4 TRANSIT HEALTH TRANSPORT ENTERPRIS MANAGEMEN ATION; ES T, [facility] NONEMERGE A0100 [facility] 4 TR[facility]ALTH TRANSPORT ENTERPRIS MANAGEMEN ATION; ES T, [facility] NONEMERGE A0100 [facility] 4 TRANS[facility] HEALTH TRANSPORT ENTERPRIS MANAGEMEN ATION; ES T, [facility] S5108 [employer] TRA[facility] 4 [facility] D AREA D AREA CARE AGENCY AGENCY CLIENT PER 15 MIN NONEMERGE A0100 [facility] 4 TR[facility] TRANSPORT ENTERPRIS MANAGEMEN ATION; ES T, [facility] NONEMERGE A0100 [facility] 4 TRANS[facility]ALTH TRANSPORT ENTERPRIS MANAGEMEN ATION; ES T, [facility] NONEMERGE A0100 [facility] 4 TRANS[facility]ALTH TRANSPORT ENTERPRIS MANAGEMEN ATION; ES T, [facility] NONEMERGE A0100 [facility] 4 [facility] TRANSPORT ENTERPRIS MANAGEMEN ATION; ES T, [facility] LANCETS A4259 ARRIVA ARRIVA PER BOX 4 MEDICAL MEDICAL OF 100 NORMAL A4256 ARRIVA ARRIVA LOW AND 4 MEDICAL MEDICAL HIGH CALIBRATO R SOLUTION/ CHIPS BLD GLU A4253 ARRIVA ARRIVA TEST/REAG 4 MEDICAL MEDICAL T STRIPS HOME BLD GLU MON-50 NONEMERGE A0100 [facility] 4 [facility] TRANSPORT ENTERPRIS MANAGEMEN ATION; ES T, [facility]AXI NONEMERGE A0100 [facility] TR[facility] TRANSPORT ENTERPRIS MANAGEMEN ATION; ES T, [facility]AXI NONEMERGE A0100 [facility] 4 [facility] TRANSPORT ENTERPRIS MANAGEMEN ATION; ES T, TAXI NONEMERGE A0100 [facility] 4 TR[facility] TRANSPORT ENTERPRIS MANAGEMEN ATION; ES T, TAXI NONEMERGE A0100 [facility] 4 TRANS[facility] HEALTH TRANSPORT ENTERPRIS MANAGEMEN ATION; ES T, TAXI NONEMERGE A0100 [facility] 4 TR[facility] TRANSPORT ENTERPRIS MANAGEMEN ATION; ES T, [facility]AXI NONEMERGE A0100 [facility] 4 TRANS[facility]ALTH TRANSPORT ENTERPRIS MANAGEMEN ATION; ES T, [facility] S5108 [facility] 4 [facility] D AREA D AREA CARE AGENCY AGENCY CLIENT PER 15 MIN NONEMERGE A0100 [facility] 4 [facility] TRANSPORT ENTERPRIS MANAGEMEN ATION; ES T, [facility]I NONEMERGE A0100 [facility] 4 TRANS[facility] HEALTH TRANSPORT ENTERPRIS MANAGEMEN ATION; ES T, [facility] O2 CONC 1 E1390 [facility] 4 [facility] MEDICAL 85%/>02 [facility]; LLC; CONC AT [facility] FLW RATE NONEMERGE A0100 [facility] 4 [facility] TRANSPORT ENTERPRIS MANAGEMEN ATION; ES T, [facility] S5108 [facility] 4 [facility] AREA CARE AGENCY AGENCY CLIENT PER 15 MIN NONEMERGE A0100 [facility] 4 [facility] TRANSPORT ENTERPRIS MANAGEMEN ATION; ES T, [facility]AXI NONEMERGE A0100 [facility] 4 [facility] TRANSPORT ENTERPRIS MANAGEMEN ATION; ES T, [facility] S5108 [facility] 4 [facility] AREA CARE AGENCY AGENCY CLIENT PER 15 MIN NONEMERGE A0100 [facility] 4 [facility] TRANSPORT ENTERPRIS MANAGEMEN ATION; ES T, [facility]AXI NONEMERGE A0100 [facility] 4 [facility] TRANSPORT ENTERPRIS MANAGEMEN ATION; ES T, [facility]I NONEMERGE A0100 [facility] 4 [facility] TRANSPORT ENTERPRIS MANAGEMEN ATION; ES T, TAXI NONEMERGE A0100 [facility] 4 [facility] TRANSPORT ENTERPRIS MANAGEMEN ATION; ES T, [facility] O2 CONC 1 E1390 [facility] 4 [facility]ICAL 85%/>02 [facility]; LLC; CON[facility] AT [facility] FLW RATE NONEMERGE A0100 [facility] 4 [facility] TRANSPORT ENTERPRIS MANAGEMEN ATION; ES T, [facility] NONEMERGE A0100 [facility] 4 [facility] ENTERPRIS MANAGEMEN ATION; ES T, TAXI PROTHROMB 41706 [facility] IN TIME 4 O MEDICAL O MEDICAL ASSOC LA ASSOC LA NONEMERGE A0100 [facility] 4 [facility] ENTERPRIS MANAGEMEN ATION; ES T, TAXI NONEMERGE A0100 [facility] 4 [facility] ENTERPRIS MANAGEMEN ATION; ES T, TAXI HOME CARE S5108 [facility] 4 [facility] AREA CARE AGENCY AGENCY CLIENT PER 15 MIN SBSQ 16553 [facility] 4 CARDIOLOG CARE/DAY Y 35 MINUTES ECG 21919 C[facility] ABOU ROUTINE 4 AND TREMAINE ECG ELECTRO TAR W/LEAST SPECIALIS 12 LDS I&R ONLY SBSQ 10640 [facility] 4 CARDIOLOG CARE/DAY Y 35 MINUTES RADIOLOGI 59899 [facility] C EXAM 4 CHEST 2 RADIOLOGY VIEWS ASSOC FRONTAL&L ATERAL ECG 39131 [facility] ROUTINE 4 AND TREMAINE ECG ELECTRO TAR W/LEAST SPECIALIS 12 LDS I&R ONLY NONEMERGE A0100 [facility] 4 [facility] ENTERPRIS MANAGEMEN ATION; ES T, TAXI NONEMERGE A0100 [facility] ENTERPRIS MANAGEMEN ATION; ES T, TAXI NONEMERGE A0100 [facility] 4 [facility] ENTERPRIS MANAGEMEN ATION; ES T, TAXI O2 CONC 1 E1390 [facility] 4 MEDICAL MEDICAL 85%/>02 [facility]; [facility]; CONC AT [facility] FLW RATE NONEMERGE A0100 [facility] 4 [facility] ENTERPRIS MANAGEMEN ATION; ES T, TAXI PROTHROMB 50618 [facility] IN TIME 4 O MEDICAL O MEDICAL ASSOC LA ASSOC LA NONEMERGE A0100 [facility] 4 [facility] ENTERPRIS MANAGEMEN ATION; ES T, [facility] HOME CARE S5108 [facility] [address] [facility] AREA D AREA CARE AGENCY AGENCY CLIENT PER 15 MIN NONEMERGE A0100 [facility] 4 [facility] ENTERPRIS MANAGEMEN ATION; ES T, TAXI PROTHROMB 92959 [facility] IN TIME 4 O MEDICAL O MEDICAL ASSOC LA ASSOC LA A4258 ARRIVA ARRIVA WERED 4 MEDICAL MACHINE WHITENER FOR LANCET EACH REPL LIU A4233 [facility] AR[facility]IV[facility] ALKALINE 4 MEDICAL MEDICAL NOT J CELL MERON BG MON OWND PT LANCETS A4259 [facility]A ARRIVA PER BOX 4 MEDICAL MEDICAL OF 100 BLD GLU A4253 [facility] AR[facility]IVA TEST/REAG 4 MEDICAL MEDICAL T STRIPS HOME BLD GLU MON-50 NORMAL A4256 [facility] AR[facility]IVA LOW AND 4 MEDICAL MEDICAL HIGH CALIBRATO R SOLUTION/ CHIPS NONEMERGE A0100 [facility] 4 [facility] ENTERPRIS MANAGEMEN ATION; ES T, TAXI NONEMERGE A0100 [facility] 4 [facility] ENTERPRIS MANAGEMEN ATION; ES T, TAXI NONEMERGE A0100 [facility] 4 [facility] ENTERPRIS MANAGEMEN ATION; ES T, TAXI NONEMERGE A0100 [facility] 4 [facility] ENTERPRIS MANAGEMEN ATION; ES T, TAXI NONEMERGE A0100 [facility] 4 [facility] ENTERPRIS MANAGEMEN ATION; ES T, TAXI ECG 35700 [facility] ROUTINE 4 HOSP INC HOSP INC ECG W/LEAST 12 LDS TRCG ONLY W/O I&R PROTHROMB 20369 [facility] IN TIME 4 HOSP INC HOSP INC THER 55750 [facility] PROPH/DX 4 HOSP INC HOSP INC NJX IV PUSH SINGLE/1S T SBST/DRUG CREATINE 77603 [facility] KINASE 4 HOSP INC HOSP INC TOTAL CREATINE 43854 [facility] KINASE MB 4 HOSP INC HOSP INC FRACTION ONLY BLOOD 34222 [facility] COUNT 4 HOSP INC HOSP INC COMPLETE AUTO&AUTO DIFRNTL WBC INJECTION J2405 [facility] 4 HOSP INC HOSP INC ONDANSETR ON HCL PER 1 MG COLLECTIO 42912 [facility] N VENOUS 4 HOSP INC [place] [address] [facility] TROPONIN 4 HOSP INC HOSP INC QUANTITAT TIKA COMPREHEN 01744 [facility] SIVE 4 HOSP INC HOSP INC METABOLIC PANEL GROUND A0425 [facility] MILEAGE 4 EMS EMS PER STATUTE MILE AMBULANCE A0429 [facility] SERVICE 4 EMS EMS BLS EMERGENCY TRANSPORT URNLS DIP 23732 [facility] 4 HOSP INC HOSP INC STICK/TAB LET RG[place] [address] [facility] INFUSION 4 HOSP INC HOSP INC HYDRATION INITIAL 31 MIN-1 HOUR THROMBOPL 67049 [facility] ASTIN 4 HOSP INC HOSP INC TIME PARTIAL PLASMA/WH OLE BLOOD RADIOLOGI 06394 [facility] 4 IMAGING & EXAMINATI ON CHEST INTERVENT SINGLE I VIEW FRONTAL NONEMERGE A0100 [facility] 4 [facility] ENTERPRIS MANAGEMEN ATION; ES T, TAXI NONEMERGE A0100 [facility] 4 [facility]SP[facility] ENTERPRIS MANAGEMEN ATION; ES T, TAXI NONEMERGE A0100 [facility] 4 [facility] ENTERPRIS MANAGEMEN ATION; ES T, TAXI NONEMERGE A0100 [facility] 4 [facility] ENTERPRIS MANAGEMEN ATION; ES T, T[facility] HOME CARE S5108 [facility] [address] [facility] AREA D AREA CARE AGENCY AGENCY CLIENT PER 15 MIN O2 CONC 1 E1390 [facility] MEDICAL MEDICAL 85%/>02 LLC; LLC; CONC AT [facility] PRSC FLW RATE NONEMERGE A0100 [facility] 4 [facility] ENTERPRIS MANAGEMEN ATION; ES T, TAXI ECG 96794 [facility] ROUTINE 4 O MEDICAL JUAN ECG W/LEAST ASSOCIATE 12 LDS TRCG ONLY W/O I&R NONEMERGE A0100 [facility] 4 [facility] ENTERPRIS MANAGEMEN ATION; ES T, TAXI PROTHROMB 55552 [facility] IN TIME 4 O MEDICAL O MEDICAL ASSOC LA ASSOC LA COLLECTIO 89854 [facility] N VENOUS 4 O MEDICAL O MEDICAL BLOOD ASSOC LA ASSOC LA VENIPUNCT URE LIPID 85142 [facility] PANEL 4 O MEDICAL O MEDICAL ASSOC LA ASSOC LA COMPREHEN 45606 [facility] SIVE 4 O MEDICAL O MEDICAL METABOLIC ASSOC LA ASSOC LA PANEL NONEMERGE A0100 [facility] 4 [facility] ENTERPRIS MANAGEMEN ATION; ES T, [facility] HOME CARE S5108 [facility] [address] [facility] AREA D AREA CARE AGENCY AGENCY CLIENT PER 15 MIN NONEMERGE A0100 [facility] 4 [facility] ENTERPRIS MANAGEMEN ATION; ES T, TAXI COLLECTIO 70819 [facility] N VENOUS 4 O MEDICAL O MEDICAL BLOOD ASSOC LA ASSOC LA VENIPUNCT URE BLOOD 00346 [facility] COUNT 4 O MEDICAL O MEDICAL COMPLETE ASSOC LA ASSOC LA AUTO&AUTO DIFRNTL WBC CREATININ 50937 [facility] OTHER 4 O MEDICAL O MEDICAL SOURCE ASSOC LA ASSOC LA IAADIADOO 64462 [facility] 4 O MEDICAL O MEDICAL INFLUENZA ASSOC LA ASSOC LA URNLS DIP 86910 [facility] 4 O MEDICAL O MEDICAL STICK/TAB ASSOC LA ASSOC LA LET RGNT AUTO W/O MICROSCOP Y IAADIADOO 60538 [facility] 4 O MEDICAL O MEDICAL STREPTOCO ASSOC LA ASSOC LA CCUS GROUP A NONEMERGE A0100 [facility] 4 [facility] ENTERPRIS MANAGEMEN ATION; ES T, TAXI NONEMERGE A0100 [facility] 4 [facility]SP[facility] ENTERPRIS MANAGEMEN ATION; ES T, TAXI NONEMERGE A0100 [facility] 4 [facility] ENTERPRIS MANAGEMEN ATION; ES T, TAXI PROTHROMB 86975 [facility] IN TIME 4 O MEDICAL [place] [address] LONG AL[facility]ES THYROID 4 O MEDICAL O MEDICAL STIMULATI ASSOC LA ASSOC LA NG HORMONE TSH BLOOD 33012 [facility] COUNT 4 O MEDICAL O MEDICAL COMPLETE ASSOC LA ASSOC LA AUTO&AUTO DIFRNTL WBC COLLECTIO 34614 [facility] N VENOUS 4 O MEDICAL O MEDICAL BLOOD ASSOC LA ASSOC LA VENIPUNCT URE COMPREHEN 30484 [facility] SIVE 4 O MEDICAL O MEDICAL METABOLIC ASSOC LA ASSOC LA PANEL NONEMERGE A0100 [facility] 4 [facility] ENTERPRIS MANAGEMEN ATION; ES T, TAXI NONEMERGE A0100 [facility] 4 [facility] ENTERPRIS MANAGEMEN ATION; ES T, TAXI NONEMERGE A0100 [facility] 4 [facility] ENTERPRIS MANAGEMEN ATION; ES T, TAXI NONEMERGE A0100 [facility] 4 [facility] ENTERPRIS MANAGEMEN ATION; ES T, T[facility]I HOME CARE S5108 [employer] AREA D AREA CARE AGENCY AGENCY CLIENT PER 15 MIN NONEMERGE A0100 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 4 [facility]SP[facility] ENTERPRIS MANAGEMEN ATION; ES T, TAXI NONEMERGE A0100 [facility] 4 [facility] ENTERPRIS MANAGEMEN ATION; ES T, TAXI O2 CONC 1 E1390 [facility] 4 MEDICAL MEDICAL 85%/>02 [facility] CONC AT [facility] FLW RATE NONEMERGE A0100 [facility] 4 [facility] ENTERPRIS MANAGEMEN ATION; ES T, T[facility] HOME CARE S5108 [employer] [place] [address] [facility] [facility] [employer] [facility] AREA D AREA CARE AGENCY AGENCY CLIENT PER 15 MIN NONEMERGE A0100 [facility] 3 [facility]SP[facility] ENTERPRIS MANAGEMEN ATION; ES T, TAXI NONEMERGE A0100 [facility] 3 [facility]SP[facility] ENTERPRIS MANAGEMEN ATION; ES T, TAXI NONEMERGE A0100 [facility] 3 [facility]SP[facility] ENTERPRIS MANAGEMEN ATION; ES T, TAXI NONEMERGE A0100 [facility] 3 [facility]SP[facility] ENTERPRIS MANAGEMEN ATION; ES T, TAXI NONEMERGE A0100 [facility] 3 [facility]SP[facility] ENTERPRIS MANAGEMEN ATION; ES T, TAXI NONEMERGE A0100 [facility] 3 [facility]SP[facility] ENTERPRIS MANAGEMEN ATION; ES T, TAXI NONEMERGE A0100 [facility] 3 [facility]SP[facility] ENTERPRIS MANAGEMEN ATION; ES T, TAXI NONEMERGE A0100 [facility] 3 [facility]SP[facility] ENTERPRIS MANAGEMEN ATION; ES T, TAXI NONEMERGE A0100 [facility] 3 [facility]SP[facility] ENTERPRIS MANAGEMEN ATION; ES T, TAXI NONEMERGE A0100 [facility] 3 [facility] ENTERPRIS MANAGEMEN ATION; ES T, TAXI HOME CARE S[address] AREA D AREA CARE AGENCY AGENCY CLIENT PER 15 MIN NONEMERGE A0100 [facility] 3 [facility] ENTERPRIS MANAGEMEN ATION; ES T, TAXI NONEMERGE A0100 [facility] 3 [facility]SP[facility] ENTERPRIS MANAGEMEN ATION; ES T, TAXI NONEMERGE A0100 [facility] 3 [facility]SP[facility] ENTERPRIS MANAGEMEN ATION; ES T, TAXI NONEMERGE A0100 [facility] 3 [facility]SP[facility] ENTERPRIS MANAGEMEN ATION; ES T, TAXI O2 CONC 1 E1390 [facility] 3 MEDICAL MEDICAL 85%/>02 [facility] FLW RATE NONEMERGE A0100 [facility] 3 [facility]SP[facility] ENTERPRIS MANAGEMEN ATION; ES T, TAXI NONEMERGE A0100 [facility] 3 [facility]SP[facility] ENTERPRIS MANAGEMEN ATION; ES T, TAXI NONEMERGE A0100 [facility] 3 [facility]SP[facility] ENTERPRIS MANAGEMEN ATION; ES T, TAXI NONEMERGE A0100 [facility] 3 [facility] ENTERPRIS MANAGEMEN ATION; ES T, TAXI NORMAL A4256 ARRIVA ARRIVA LOW AND 3 MEDICAL MEDICAL HIGH CALIBRATO R SOLUTION/ CHIPS BLD GLU A4253 ARRIVA ARRIVA TEST/REAG 3 MEDICAL MEDICAL T STRIPS HOME BLD GLU MON-50 LANCETS A4259 ARRIVA ARRIVA PER BOX 3 MEDICAL MEDICAL OF 100 NONEMERGE A0100 [facility] 3 [facility] ENTERPRIS MANAGEMEN ATION; ES T, TAXI NONEMERGE A0100 [facility] 3 [facility]SP[facility] ENTERPRIS MANAGEMEN ATION; ES T, TAXI NONEMERGE A0100 [facility] 3 [facility]SP[facility] ENTERPRIS MANAGEMEN ATION; ES T, TAXI NONEMERGE A0100 [facility] 3 [facility]SP[facility] ENTERPRIS MANAGEMEN ATION; ES T, TAXI NONEMERGE A0100 [facility] 3 [facility]SP[facility] ENTERPRIS MANAGEMEN ATION; ES T, TAXI NONEMERGE A0100 [facility] 3 [facility]SP[facility] ENTERPRIS MANAGEMEN ATION; ES T, TAXI NONEMERGE A0100 [facility] 3 [facility]SP[facility] ENTERPRIS MANAGEMEN ATION; ES T, TAXI NONEMERGE A0100 [facility] 3 [facility]SP[facility] ENTERPRIS MANAGEMEN ATION; ES T, TAXI HOME CARE S5108 [facility] 3 [facility] HOME D AREA D AREA CARE AGENCY AGENCY CLIENT PER 15 MIN NONEMERGE A0100 [facility] 3 [facility]SP[facility] ENTERPRIS MANAGEMEN ATION; ES T, TAXI NONEMERGE A0100 [facility] 3 [facility]SP[facility] ENTERPRIS MANAGEMEN ATION; ES T, TAXI NONEMERGE A0100 [facility] 3 [facility]SP[facility] ENTERPRIS MANAGEMEN ATION; ES T, TAXI NONEMERGE A0100 [facility] 3 [facility]SP[facility] ENTERPRIS MANAGEMEN ATION; ES T, TAXI O2 CONC 1 E1390 [facility] 3 MEDICAL MEDICAL 85%/>02 [facility] CONC AT [facility] FLW RATE NONEMERGE A0100 [facility] 3 [facility]SP[facility] ENTERPRIS MANAGEMEN ATION; ES T, TAXI NONEMERGE A0100 [facility] 3 [facility]SP[facility] ENTERPRIS MANAGEMEN ATION; ES T, TAXI NONEMERGE A0100 [facility] 3 [facility]SP[facility] ENTERPRIS MANAGEMEN ATION; ES T, TAXI NONEMERGE A0100 [facility] 3 [facility]SP[facility] ENTERPRIS MANAGEMEN ATION; ES T, TAXI NONEMERGE A0100 [facility] 3 [facility]SP[facility] ENTERPRIS MANAGEMEN ATION; ES T, TAXI HOME CARE S5108 [facility] 3 [facility] HOME D AREA D AREA CARE AGENCY AGENCY CLIENT PER 15 MIN NONEMERGE A0100 [facility] 3 [facility] ENTERPRIS MANAGEMEN ATION; ES T, TAXI PROTHROMB 19064 [facility] IN TIME 3 O MEDICAL O MEDICAL ASSOC LA ASSOC LA NONEMERGE A0100 [facility] 3 [facility] ENTERPRIS MANAGEMEN ATION; ES T, TAXI NONEMERGE A0100 [facility] 3 [facility]SP[facility] ENTERPRIS MANAGEMEN ATION; ES T, TAXI NONEMERGE A0100 [facility] 3 [facility]SP[facility] ENTERPRIS MANAGEMEN ATION; ES T, TAXI NONEMERGE A0100 [facility] 3 [facility]SP[facility] ENTERPRIS MANAGEMEN ATION; ES T, TAXI NONEMERGE A0100 [facility] 3 [facility] ENTERPRIS MANAGEMEN ATION; ES T, TAXI NONEMERGE A0100 [facility] 3 [facility]SP[facility] ENTERPRIS MANAGEMEN ATION; ES T, TAXI NONEMERGE A0100 [facility] 3 [facility]SP[facility] ENTERPRIS MANAGEMEN ATION; ES T, TAXI PROTHROMB 96143 [facility] IN TIME 3 O MEDICAL O MEDICAL ASSOC LA ASSOC LA ALBUMIN 77427 LAB GALA LAB GALA URINE 3 DAVID DAVID MICROALBU [employer] HOLDINGS MIN QUANTIATI VE COLLECTIO 55934 LONG ALVES N VENOUS 3 O MEDICAL O MEDICAL BLOOD ASSOC LA ASSOC LA VENIPUNCT URE HEMOGLOBI 80802 LONG ALVES N 3 O MEDICAL O MEDICAL GLYCOSYLA ASSOC LA ASSOC LA DOTTIE A1C BLOOD 14253 [facility] COUNT 3 O MEDICAL O MEDICAL COMPLETE ASSOC LA ASSOC LA AUTO&[place] [address] LONG ALVES THYROID 3 O MEDICAL O MEDICAL STIMULATI ASSOC LA ASSOC LA NG HORMONE TSH CREATININ 44660 LAB GALA LAB GALA E OTHER 3 [facility] [employer] HOLDINGS COMPREHEN 00515 LONG ALVES SIVE 3 O MEDICAL O MEDICAL METABOLIC ASSOC LA ASSOC LA PANEL LIPID 37294 LONG AL[facility]ES PANEL 3 O MEDICAL O MEDICAL ASSOC LA ASSOC LA NONEMERGE A0100 [facility] 3 [facility] ENTERPRIS MANAGEMEN ATION; ES T, TAXI NONEMERGE A0100 [facility] 3 [facility]SP[facility] ENTERPRIS MANAGEMEN ATION; ES T, TAXI HOME CARE S5108 [facility] 3 [facility] AREA D AREA CARE AGENCY AGENCY CLIENT PER 15 MIN NONEMERGE A0100 [facility] 3 [facility] ENTERPRIS MANAGEMEN ATION; ES T, TAXI NONEMERGE A0100 [facility] 3 [facility]SP[facility] ENTERPRIS MANAGEMEN ATION; ES T, TAXI NONEMERGE A0100 [facility] 3 TRANS[facility] TRANSPORT ENTERPRIS MANAGEMEN ATION; ES T, TAXI NONEMERGE A0100 [facility] 3 [facility]SP[facility] ENTERPRIS MANAGEMEN ATION; ES T, TAXI O2 CONC 1 E1390 [facility] 3 MEDICAL MEDICAL 85%/>02 [facility] CONC AT [facility] FLW RATE NONEMERGE A0100 [facility] 3 [facility]SP[facility] ENTERPRIS MANAGEMEN ATION; ES T, TAXI NONEMERGE A0100 [facility] 3 [facility]SP[facility] ENTERPRIS MANAGEMEN ATION; ES T, TAXI NONEMERGE A0100 [facility] 3 [facility]SP[facility] ENTERPRIS MANAGEMEN ATION; ES T, TAXI NONEMERGE A0100 [facility] 3 [facility]SP[facility] ENTERPRIS MANAGEMEN ATION; ES T, TAXI NONEMERGE A0100 [facility] 3 [facility]SP[facility] ENTERPRIS MANAGEMEN ATION; ES T, TAXI HOME CARE S5108 [facility] 3 [facility] D AREA D AREA CARE AGENCY AGENCY CLIENT PER 15 MIN NONEMERGE A0100 [facility] 3 [facility]SP[facility] ENTERPRIS MANAGEMEN ATION; ES T, TAXI NONEMERGE A0100 [facility] 3 [facility]SP[facility] ENTERPRIS MANAGEMEN ATION; ES T, TAXI NONEMERGE A0100 [facility] 3 [facility] TRANSP[facility] ENTERPRIS MANAGEMEN ATION; ES T, TAXI NONEMERGE A0100 [facility] 3 [facility]SP[facility] ENTERPRIS MANAGEMEN ATION; ES T, TAXI NONEMERGE A0100 [facility] 3 [facility] TRANSPORT ENTERPRIS MANAGEMEN ATION; ES T, TAXI NONEMERGE A0100 [facility] 3 [facility]SP[facility] ENTERPRIS MANAGEMEN ATION; ES T, TAXI NONEMERGE A0100 [facility] 3 [facility]SP[facility] ENTERPRIS MANAGEMEN ATION; ES T, TAXI NONEMERGE A0100 [facility] 3 [facility] TRANSPORT ENTERPRIS MANAGEMEN ATION; ES T, TAXI NONEMERGE A0100 [facility] 3 [facility] TRANSPORT ENTERPRIS MANAGEMEN ATION; ES T, TAXI NONEMERGE A0100 [facility]SP[facility] ENTERPRIS MANAGEMEN ATION; ES T, T[facility]I HOME CARE S5108 [facility] [employer] TRAINING [address] [facility] AREA D AREA CARE AGENCY AGENCY CLIENT PER 15 MIN NONEMERGE A0100 [facility] 3 [facility]SP[facility] ENTERPRIS MANAGEMEN ATION; ES T, TAXI NONEMERGE A0100 [facility] 3 [facility] TRANSPORT ENTERPRIS MANAGEMEN ATION; ES T, TAXI NONEMERGE A0100 [facility] 3 [facility]SP[facility] ENTERPRIS MANAGEMEN ATION; ES T, TAXI NONEMERGE A0100 [facility] ENTERPRIS MANAGEMEN ATION; ES T, TAXI MISC [place] T1999 [facility] & 3 [facility] D AREA D AREA RETAIL AGENCY AGENCY PURCHASE NOC O2 CONC 1 E1390 [facility] MEDICAL MEDICAL 85%/>02 [facility] [employer] CONC AT [facility] PRSC FLW RATE NONEMERGE A0100 [facility] 3 [facility] ENTERPRIS MANAGEMEN ATION; ES T, TAXI NONEMERGE A0100 [facility] 3 [facility]SP[facility] ENTERPRIS MANAGEMEN ATION; ES T, TAXI NONEMERGE A0100 [facility] 3 [facility] ENTERPRIS MANAGEMEN ATION; ES T, TAXI LIPID 21738 [facility] PANEL 3 O MEDICAL O MEDICAL ASSOC LA ASSOC LA COMPREHEN 50441 [facility] SIVE 3 O MEDICAL O MEDICAL METABOLIC ASSOC LA ASSOC LA PANEL COLLECTIO 55554 [facility] N VENOUS 3 O MEDICAL O MEDICAL BLOOD ASSOC LA ASSOC LA VENIPUNCT URE NONEMERGE A0100 [facility] 3 [facility] ENTERPRIS MANAGEMEN ATION; ES T, TAXI HOME CARE S5108 [facility] TRAINING 3 [facility] D AREA D AREA CARE AGENCY AGENCY CLIENT PER 15 MIN NONEMERGE A0100 [facility] 3 [facility] ENTERPRIS MANAGEMEN ATION; ES T, TAXI BLD GLU A4253 ARRIVA ARRIVA TEST/REAG 3 MEDICAL MEDICAL T STRIPS HOME BLD GLU MON-50 LANCETS A4259 ARRIVA ARRIVA PER BOX 3 MEDICAL MEDICAL OF 100 HOME E0607 ARRIVA ARRIVA BLOOD 3 MEDICAL MEDICAL GLUCOSE MONITOR NONEMERGE A0100 [facility] 3 [facility] ENTERPRIS MANAGEMEN ATION; ES T, TAXI NONEMERGE A0100 [facility]SP[facility] ENTERPRIS MANAGEMEN ATION; ES T, TAXI NONEMERGE A0100 [facility] 3 [facility] TRANSPORT ENTERPRIS MANAGEMEN ATION; ES T, TAXI NONEMERGE A0100 [facility] 3 [facility] TRANSPORT ENTERPRIS MANAGEMEN ATION; ES T, TAXI NONEMERGE A0100 [facility] 3 [facility] TRANSPORT ENTERPRIS MANAGEMEN ATION; ES T, TAXI NONEMERGE A0100 [facility] 3 [facility] TRANSPORT ENTERPRIS MANAGEMEN ATION; ES T, TAXI NONEMERGE A0100 [facility] 3 [facility] TRANSPORT ENTERPRIS MANAGEMEN ATION; ES T, TAXI NONEMERGE A0100 [facility] 3 [facility] TRANSPORT ENTERPRIS MANAGEMEN ATION; ES T, TAXI NONEMERGE A0100 [facility] 3 [facility] TRANSPORT ENTERPRIS MANAGEMEN ATION; ES T, [facility] HOME CARE [id number] [facility] 3 [facility] D AREA D AREA CARE AGENCY AGENCY CLIENT PER 15 MIN NONEMERGE A0100 [facility] TRANSPORT ENTERPRIS MANAGEMEN ATION; ES T, TAXI NONEMERGE A0100 [facility] 3 [facility] TRANSPORT ENTERPRIS MANAGEMEN ATION; ES T, TAXI NONEMERGE A0100 [facility] 3 [facility] TRANSPORT ENTERPRIS MANAGEMEN ATION; ES T, TAXI NONEMERGE A0100 [facility] 3 [facility] TRANSPORT ENTERPRIS MANAGEMEN ATION; ES T, TAXI NONEMERGE A0100 [facility] TRANSPORT ENTERPRIS MANAGEMEN ATION; ES T, TAXI O2 CONC 1 [id number] [facility] 3 MEDICAL MEDICAL 85%/>02 [place] [facility] AT [facility] FLW RATE NONEMERGE A0100 [facility] 3 [facility] TRANSPORT ENTERPRIS MANAGEMEN ATION; ES T, TAXI NONEMERGE A0100 [facility] 3 [facility] TRANSPORT ENTERPRIS MANAGEMEN ATION; ES T, TAXI NONEMERGE A0100 [facility] 3 [facility] TRANSPORT ENTERPRIS MANAGEMEN ATION; ES T, TAXI NONEMERGE A0100 [facility] 3 [facility] TRANSPORT ENTERPRIS MANAGEMEN ATION; ES T, [facility] HOME CARE S5108 [facility] D AREA D AREA CARE AGENCY AGENCY CLIENT PER 15 MIN NONEMERGE A0100 [facility] 3 [facility] TRANSPORT ENTERPRIS MANAGEMEN ATION; ES T, TAXI NONEMERGE A0100 [facility] 3 [facility] TRANSPORT ENTERPRIS MANAGEMEN ATION; ES T, TAXI NONEMERGE A0100 [facility] 3 [facility] TRANSPORT ENTERPRIS MANAGEMEN ATION; ES T, TAXI NONEMERGE A0100 [facility] 3 [facility] TRANSPORT ENTERPRIS MANAGEMEN ATION; ES T, TAXI NONEMERGE A0100 [facility] 3 [facility] TRANSPORT ENTERPRIS MANAGEMEN ATION; ES T, TAXI PROTHROMB [id number] [facility] IN TIME 3 O MEDICAL O MEDICAL ASSOC LA ASSOC LA NONEMERGE A0100 [facility] 3 [facility]SP[facility] ENTERPRIS MANAGEMEN ATION; ES T, TAXI NONEMERGE A0100 [facility] 3 [facility] TRANSPORT ENTERPRIS MANAGEMEN ATION; ES T, TAXI NONEMERGE A0100 [facility] 3 [facility] TRANSPORT ENTERPRIS MANAGEMEN ATION; ES T, TAXI NONEMERGE A0100 [facility] 3 [facility] TRANSPORT ENTERPRIS MANAGEMEN ATION; ES T, TAXI PROTHROMB [id number] [facility] TIME 3 O MEDICAL O MEDICAL ASSOC LA ASSOC LA NONEMERGE A0100 [facility] 3 TRANS[facility] TRANSPORT ENTERPRIS MANAGEMEN ATION; ES T, TAXI NONEMERGE A0100 [facility] TRANSPORT ENTERPRIS MANAGEMEN ATION; ES T, [facility] HOME CARE S5108 [facility] 3 [facility] HOME D AREA D AREA CARE AGENCY AGENCY CLIENT PER 15 MIN NONEMERGE A0100 [facility] 3 [facility] TRANSPORT ENTERPRIS MANAGEMEN ATION; ES T, TAXI NONEMERGE A0100 [facility] 3 [facility] TRANSPORT ENTERPRIS MANAGEMEN ATION; ES T, TAXI PROTHROMB [id number] [facility] IN TIME 3 O MEDICAL O MEDICAL ASSOC LA ASSOC LA HEMOGLOBI 70198 [facility] N 3 O MEDICAL O MEDICAL [facility] LA ASSOC LA DOTTIE A1C COLLECTIO 16019 [facility] N VENOUS 3 O MEDICAL O MEDICAL BLOOD ASSOC LA ASSOC LA VENIPUNCT URE BLOOD 35450 [facility] COUNT 3 O MEDICAL O MEDICAL COMPLETE ASSOC LA ASSOC LA AUTO&AUTO DIFRNTL WBC COMPREHEN 68911 [facility] SIVE 3 O MEDICAL O MEDICAL METABOLIC ASSOC LA ASSOC LA PANEL LIPID 01094 [facility] PANEL 3 O MEDICAL O MEDICAL ASSOC LA ASSOC LA NONEMERGE A0100 [facility] 3 [facility] TRANSPORT ENTERPRIS MANAGEMEN ATION; ES T, TAXI NONEMERGE A0100 [facility] 3 [facility] HE[facility] TRANSPORT ENTERPRIS MANAGEMEN ATION; ES T, TAXI O2 CONC 1 E1390 [facility] 3 MEDICAL MEDICAL 85%/>02 [facility] AT [facility] FLW RATE NONEMERGE A0100 [facility] 3 [facility] HE[facility] TRANSPORT ENTERPRIS MANAGEMEN ATION; ES T, TAXI NONEMERGE A0100 [facility] 3 TRANS[facility] HEALTH TRANSPORT ENTERPRIS MANAGEMEN ATION; ES T, TAXI NONEMERGE A0100 [facility] 3 [facility] TRANSPORT ENTERPRIS MANAGEMEN ATION; ES T, TAXI HOME CARE S5108 [facility] [address] [facility] AREA AREA CARE AGENCY AGENCY CLIENT PER 15 MIN NONEMERGE A0100 [facility] 3 [facility] TRANSPORT ENTERPRIS MANAGEMEN ATION; ES T, TAXI NONEMERGE A0100 [facility] 3 [facility] HE[facility] TRANSPORT ENTERPRIS MANAGEMEN ATION; ES T, TAXI NONEMERGE A0100 [facility] 3 TR[facility] HEALTH TRANSPORT ENTERPRIS MANAGEMEN ATION; ES T, TAXI NONEMERGE A0100 [facility] 3 [facility] HE[facility] TRANSPORT ENTERPRIS MANAGEMEN ATION; ES T, TAXI NONEMERGE A0100 [facility] 3 TR[facility] HEALTH TRANSPORT ENTERPRIS MANAGEMEN ATION; ES T, TAXI NONEMERGE A0100 [facility] 3 TR[facility] HEALTH TRANSPORT ENTERPRIS MANAGEMEN ATION; ES T, TAXI NONEMERGE A0100 [facility] 3 TR[facility] HEALTH TRANSPORT ENTERPRIS MANAGEMEN ATION; ES T, TAXI NONEMERGE A0100 [facility] 3 TRANS[facility] HEALTH TRANSPORT ENTERPRIS MANAGEMEN ATION; ES T, TAXI NONEMERGE A0100 [facility] 3 [facility] HEALTH TRANSPORT ENTERPRIS MANAGEMEN ATION; ES T, T[facility]I HOME CARE S5108 [facility] [address] [facility] AREA AREA CARE AGENCY AGENCY CLIENT PER 15 MIN NONEMERGE A0100 [facility] 3 [facility] TRANSPORT ENTERPRIS MANAGEMEN ATION; ES T, TAXI NONEMERGE A0100 [facility] 3 TR[facility] HEALTH TRANSPORT ENTERPRIS MANAGEMEN ATION; ES T, TAXI NONEMERGE A0100 [facility] 3 TR[facility] HEALTH TRANSPORT ENTERPRIS MANAGEMEN ATION; ES T, TAXI NONEMERGE A0100 [facility] 3 [facility] TRANSPORT ENTERPRIS MANAGEMEN ATION; ES T, TAXI O2 CONC 1 E1390 [facility] 3 MEDICAL MEDICAL 85%/>02 [facility] [facility] [facility] AT [facility] FLW RATE NONEMERGE A0100 [facility] 3 [facility] TRANSPORT ENTERPRIS MANAGEMEN ATION; ES T, TAXI NONEMERGE A0100 [facility] 3 [facility] HEALTH TRANSPORT ENTERPRIS MANAGEMEN ATION; ES T, TAXI NONEMERGE A0100 [facility] 3 TR[facility] HEALTH TRANSPORT ENTERPRIS MANAGEMEN ATION; ES T, TAXI NONEMERGE A0100 [facility] 3 [facility] TRANSPORT ENTERPRIS MANAGEMEN ATION; ES T, TAXI HOME CARE S5108 [facility] 3 [facility] AREA D AREA CARE AGENCY AGENCY CLIENT PER 15 MIN NONEMERGE A0100 [facility] 3 [facility] TRANSPORT ENTERPRIS MANAGEMEN ATION; ES T, TAXI NONEMERGE A0100 [facility] 3 TR[facility] HEALTH TRANSPORT ENTERPRIS MANAGEMEN ATION; ES T, TAXI NONEMERGE A0100 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 3 TR[facility] HEALTH TRANSPORT ENTERPRIS MANAGEMEN ATION; ES T, TAXI NONEMERGE A0100 [facility] 3 TR[facility] HEALTH TRANSPORT ENTERPRIS MANAGEMEN ATION; ES T, TAXI NONEMERGE A0100 [facility] 3 TRANS[facility] HEALTH TRANSPORT ENTERPRIS MANAGEMEN ATION; ES T, TAXI NONEMERGE A0100 [facility] 3 TRANSIT HEALTH TRANSPORT ENTERPRIS MANAGEMEN ATION; ES T, TAXI NONEMERGE A0100 [facility] 3 TRANSIT HEALTH TRANSPORT ENTERPRIS MANAGEMEN ATION; ES T, TAXI NONEMERGE A0100 [facility] 3 TRANS[facility] HEALTH TRANSPORT ENTERPRIS MANAGEMEN ATION; ES T, TAXI NONEMERGE A0100 [facility] 3 TRANSIT HEALTH TRANSPORT ENTERPRIS MANAGEMEN ATION; ES T, TAXI NONEMERGE A0100 [facility] 3 TRANSIT HEALTH TRANSPORT ENTERPRIS MANAGEMEN ATION; ES T, TAXI NONEMERGE A0100 [facility] 3 TRANS[facility] HEALTH TRANSPORT ENTERPRIS MANAGEMEN ATION; ES T, TAXI NONEMERGE A0100 [facility] 3 TRANS[facility] HEALTH TRANSPORT ENTERPRIS MANAGEMEN ATION; ES T, TAXI O2 CONC 1 E1390 [facility] 3 MEDICAL MEDICAL 85%/>02 [facility] AT [facility] FLW RATE NONEMERGE A0100 [facility] 3 TR[facility] HEALTH TRANSPORT ENTERPRIS MANAGEMEN ATION; ES T, TAXI NONEMERGE A0100 [facility] 3 TRANS[facility] HEALTH TRANSPORT ENTERPRIS MANAGEMEN ATION; ES T, TAXI NONEMERGE A0100 [facility] 3 TR[facility] HEALTH TRANSPORT ENTERPRIS MANAGEMEN ATION; ES T, T[facility]I HOME CARE S5108 [facility] 3 [facility] HOME D AREA D AREA CARE AGENCY AGENCY CLIENT PER 15 MIN NONEMERGE A0100 [facility] 3 [facility] TRANSPORT ENTERPRIS MANAGEMEN ATION; ES T, TAXI MISC [place] T1999 [facility] IT[facility] & 3 [facility] C[facility] SPL D AREA D AREA RETAIL AGENCY AGENCY PURCHASE NOC NONEMERGE A0100 [facility] 3 [facility] TRANSPORT ENTERPRIS MANAGEMEN ATION; ES T, TAXI NONEMERGE A0100 [facility] 3 TRANS[facility] HEALTH TRANSPORT ENTERPRIS MANAGEMEN ATION; ES T, TAXI NONEMERGE A0100 [facility] 3 TRANSIT HEALTH TRANSPORT ENTERPRIS MANAGEMEN ATION; ES T, TAXI NONEMERGE A0100 [facility] 3 TRANS[facility] HEALTH TRANSPORT ENTERPRIS MANAGEMEN ATION; ES T, TAXI RADIOLOGI 18037 [facility] C EXAM 3 MEDICINE JENNIFER BOTH & KNEES ORTHOPAED STANDING I ANTEROPOS T INJECTION J1040 [facility] 3 MEDICINE JENNIFER METHYLPRE & DNISOLONE ORTHOPAED ACETATE I 80 MG ARTHROCEN 01988 [facility] TESIS 3 MEDICINE JENNIFER ASPIR&/IN & J MAJOR ORTHOPAED JT/BURSA I W/O US NONEMERGE A0100 [facility] 3 [facility] TRANSPORT ENTERPRIS MANAGEMEN ATION; ES T, TAXI NONEMERGE A0100 [facility] 3 TRANS[facility] HEALTH TRANSPORT ENTERPRIS MANAGEMEN ATION; ES T, TAXI NONEMERGE A0100 [facility] 3 TRANS[facility] HEALTH TRANSPORT ENTERPRIS MANAGEMEN ATION; ES T, TAXI NONEMERGE A0100 [facility] 3 TRANS[facility] HEALTH TRANSPORT ENTERPRIS MANAGEMEN ATION; ES T, TAXI NONEMERGE A0100 [facility] 3 [facility] TRANSPORT ENTERPRIS MANAGEMEN ATION; ES T, TAXI HOME CARE S5108 [facility] 3 [facility] HOME D AREA D AREA CARE AGENCY AGENCY CLIENT PER 15 MIN NONEMERGE A0100 [facility] 3 [facility] HEALTH TRANSPORT ENTERPRIS MANAGEMEN ATION; ES T, TAXI NONEMERGE A0100 [facility] 3 TR[facility] HEALTH TRANSPORT ENTERPRIS MANAGEMEN ATION; ES T, TAXI PROTHROMB 98757 [facility] IN TIME 3 O MEDICAL O MEDICAL ASSOC LA ASSOC LA NONEMERGE A0100 [facility] 3 TRANS[facility] HEALTH TRANSPORT ENTERPRIS MANAGEMEN ATION; ES T, TAXI NONEMERGE A0100 [facility] 3 TRANS[facility] HEALTH TRANSPORT ENTERPRIS MANAGEMEN ATION; ES T, TAXI O2 CONC 1 E1390 [facility] 3 MEDICAL MEDICAL 85%/>02 [facility] [facility] CONC AT [facility] FLW RATE NONEMERGE A0100 [facility] 3 TRANS[facility] HEALTH TRANSPORT ENTERPRIS MANAGEMEN ATION; ES T, TAXI NONEMERGE A0100 [facility] 3 TRANS[facility] HEALTH TRANSPORT ENTERPRIS MANAGEMEN ATION; ES T, TAXI NONEMERGE A0100 [facility] 3 TR[facility] HEALTH TRANSPORT ENTERPRIS MANAGEMEN ATION; ES T, TAXI HOME CARE S5108 [employer] [facility] 3 [facility] AREA D AREA CARE AGENCY AGENCY CLIENT PER 15 MIN NONEMERGE A0100 [facility] 3 TR[facility] HEALTH TRANSPORT ENTERPRIS MANAGEMEN ATION; ES T, TAXI NONEMERGE A0100 [facility] 3 TRANS[facility] HEALTH TRANSPORT ENTERPRIS MANAGEMEN ATION; ES T, TAXI NONEMERGE A0100 [facility] 3 TRANSIT HEALTH TRANSPORT ENTERPRIS MANAGEMEN ATION; ES T, TAXI NONEMERGE A0100 [facility] 3 TRANSIT HEALTH TRANSPORT ENTERPRIS MANAGEMEN ATION; ES T, TAXI NONEMERGE A0100 [facility] 3 TRANSIT HEALTH TRANSPORT ENTERPRIS MANAGEMEN ATION; ES T, TAXI NONEMERGE A0100 [facility] 3 TRANSIT HEALTH TRANSPORT ENTERPRIS MANAGEMEN ATION; ES T, TAXI NONEMERGE A0100 [facility] 3 TRANSIT HEALTH TRANSPORT ENTERPRIS MANAGEMEN ATION; ES T, TAXI NONEMERGE A0100 [facility] 3 TRANSIT HEALTH TRANSPORT ENTERPRIS MANAGEMEN ATION; ES T, TAXI NONEMERGE A0100 [facility] 3 TRANSIT HEALTH TRANSPORT ENTERPRIS MANAGEMEN ATION; ES T, TAXI NONEMERGE A0100 [facility] 3 TRANSIT HEALTH TRANSPORT ENTERPRIS MANAGEMEN ATION; ES T, TAXI HOME CARE S5108 [facility] 3 [facility] D AREA D AREA CARE AGENCY AGENCY CLIENT PER 15 MIN NONEMERGE A0100 [facility] 3 [facility] HEALTH TRANSPORT ENTERPRIS MANAGEMEN ATION; ES T, TAXI DEBRIDEME 70499 [facility] NT NAIL 3 D FOOT & DEN ANY ANKLE METHOD CENT 6/> NONEMERGE A0100 [facility] 3 [facility] TRANSPORT ENTERPRIS MANAGEMEN ATION; ES T, TAXI NONEMERGE A0100 [facility] 3 TR[facility] HE[facility] TRANSPORT ENTERPRIS MANAGEMEN ATION; ES T, TAXI ALBUTEROL J7613 [facility] INHAL 3 DRUG DRUG NON-CP PROD THRU DME U DOSE 1 MG PHRM Q0513 [facility] DISPENSIN 3 DRUG DRUG G FEE INHALATIO N RX; PER 30 DAYS O2 CONC 1 E1390 [facility] 3 MEDICAL MEDICAL 85%/>02 [place] CONC AT [facility] PRSC FLW RATE NONEMERGE A0100 [facility] 3 TRANS[facility] HEALTH TRANSPORT ENTERPRIS MANAGEMEN ATION; ES T, TAXI NONEMERGE A0100 [facility] 3 TRANS[facility] HEALTH TRANSPORT ENTERPRIS MANAGEMEN ATION; ES T, TAXI LIPOPROTE 78416 [facility] IN BLOOD 3 [employer] NUMBERS & SUBCLASSE S LIPID 23011 [facility] PANEL 3 [employer] COLLECTIO 97678 [facility] N VENOUS 3 O MEDICAL O MEDICAL BLOOD ASSOC LA ASSOC LA VENIPUNCT URE NONEMERGE A0100 [facility] 3 [facility] TRANSPORT ENTERPRIS MANAGEMEN ATION; ES T, TAXI NONEMERGE A0100 [facility] 3 TRANS[facility] HEALTH TRANSPORT ENTERPRIS MANAGEMEN ATION; ES T, TAXI HOME CARE S5108 [facility] 3 [facility] D AREA D AREA CARE AGENCY AGENCY CLIENT PER 15 MIN NONEMERGE A0100 [facility] 3 [facility] TRANSPORT ENTERPRIS MANAGEMEN ATION; ES T, TAXI NONEMERGE A0100 [facility] 3 TRANS[facility] HEALTH TRANSPORT ENTERPRIS MANAGEMEN ATION; ES T, TAXI NONEMERGE A0100 [facility] 3 TRANS[facility] HEALTH TRANSPORT ENTERPRIS MANAGEMEN ATION; ES T, TAXI NONEMERGE A0100 [facility] 3 TRANS[facility] HEALTH TRANSPORT ENTERPRIS MANAGEMEN ATION; ES T, TAXI NONEMERGE A0100 [facility] 3 TR[facility] HE[facility] TRANSPORT ENTERPRIS MANAGEMEN ATION; ES T, TAXI HOME CARE S5108 [facility] 3 [facility] D AREA D AREA CARE AGENCY AGENCY CLIENT PER 15 MIN NONEMERGE A0100 [facility] 3 [facility] TRANSPORT ENTERPRIS MANAGEMEN ATION; ES T, TAXI NONEMERGE A0100 [facility] 3 TRANS[facility] HEALTH TRANSPORT ENTERPRIS MANAGEMEN ATION; ES T, TAXI NONEMERGE A0100 [facility] 3 TRANS[facility] HEALTH TRANSPORT ENTERPRIS MANAGEMEN ATION; ES T, TAXI NONEMERGE A0100 [facility] 3 TRANS[facility] HEALTH TRANSPORT ENTERPRIS MANAGEMEN ATION; ES T, TAXI O2 CONC 1 E1390 [facility] 3 MEDICAL MEDICAL 85%/>02 [facility] CONC AT [facility] FLW RATE NONEMERGE A0100 [facility] 3 TRANS[facility] HEALTH TRANSPORT ENTERPRIS MANAGEMEN ATION; ES T, TAXI NONEMERGE A0100 [facility] 3 TR[facility] HEALTH TRANSPORT ENTERPRIS MANAGEMEN ATION; ES T, TAXI HOME CARE S5108 [facility] 3 [facility] D AREA D AREA CARE AGENCY AGENCY CLIENT PER 15 MIN NONEMERGE A0100 [facility] 3 [facility] HE[facility] TRANSPORT ENTERPRIS MANAGEMEN ATION; ES T, TAXI NONEMERGE A0100 [facility] 3 TRANS[facility] HEALTH TRANSPORT ENTERPRIS MANAGEMEN ATION; ES T, TAXI NONEMERGE A0100 [facility] 3 TRANS[facility] HEALTH TRANSPORT ENTERPRIS MANAGEMEN ATION; ES T, TAXI NONEMERGE A0100 [facility] 3 TRANS[facility] HEALTH TRANSPORT ENTERPRIS MANAGEMEN ATION; ES T, TAXI MISC [place] T1999 [facility] ITEMS & 3 [facility] SPL D AREA D AREA RETAIL AGENCY AGENCY PURCHASE NOC NONEMERGE A0100 [facility] 3 [facility] HE[facility] TRANSPORT ENTERPRIS MANAGEMEN ATION; ES T, TAXI NONEMERGE A0100 [facility] 3 TRANS[facility] HEALTH TRANSPORT ENTERPRIS MANAGEMEN ATION; ES T, TAXI HOME CARE S5108 [facility] TRAIN[facility] [address] [facility] AREA D AREA CARE AGENCY AGENCY CLIENT PER 15 MIN NONEMERGE A0100 [facility] 3 [facility] TRANSPORT ENTERPRIS MANAGEMEN ATION; ES T, TAXI NONEMERGE A0100 [facility] 3 [facility] TRANSPORT ENTERPRIS MANAGEMEN ATION; ES T, TAXI NONEMERGE A0100 [facility] 3 [facility] TRANSPORT ENTERPRIS MANAGEMEN ATION; ES T, TAXI ALBUTEROL J7613 F & H F & H INHAL 3 DRUG DRUG NON-CP PROD THRU DME U DOSE 1 MG PHRM Q0513 F & H F & H DISPENSIN 3 DRUG DRUG G FEE INHALATIO N RX; PER 30 DAYS NONEMERGE A0100 [facility] 3 [facility] TRANSPORT ENTERPRIS MANAGEMEN ATION; ES T, TAXI COLONOSCO 78980 AYANNA URENA STAR PY FLX DX 3 W/COLLJ SPEC WHEN PFRMD INJECTION J2250 [facility] BALJIT CO 3 HOSP INC HOSP INC MIDAZOLAM HCL PER 1 MG COLLECTIO 25171 [facility] N VENOUS 3 HOSP INC HOSP INC BLOOD VENIPUNCT URE PROTHROMB 32993 [facility] IN TIME 3 HOSP INC HOSP INC O2 CONC 1 E1390 [facility] 3 MEDICAL MEDICAL 85%/>02 [address] CONC [facility] PRSC FLW RATE COLOREC G0121 [facility] CANCR 3 HOSP INC HOSP INC SCR; COLNSCPY NOT MEET HI RISK NONEMERGE A0100 [facility] 3 [facility] TRANSPORT ENTERPRIS MANAGEMEN ATION; ES T, TAXI SBSQ 24005 [facility] 3 CARDIOLOG CARE/DAY Y 25 MINUTES INITIAL 28539 CARMITA LEIJA STAR OBSERVATI 3 MEDICAL ON GROUP CARE/DAY [place] 50 MINUTES INITIAL 32610 [facility] 3 CARDIOLOG CARE/DAY Y 50 MINUTES MYOCARDIA 27393 [facility] SPECT 3 CARDIOLOG MULTIPLE Y STUDIES ECG 11972 PRIETO ALBERT ROUTINE 3 EMERGENCY I RENEE ECG SERVICES W/LEAST 12 LDS I&R ONLY RADIOLOGI 35829 [facility] C 3 E MAYNOR EXAMINATI RADIOLOGY ON CHEST ASSOC SINGLE VIEW FRONTAL AMB A0427 [facility] SERVICE 3 EMS EMS ALS EMERGENCY TRANSPORT LEVEL 1 HOME CARE S5108 [employer] [facility] 3 [place] AREA D AREA CARE AGENCY AGENCY CLIENT PER 15 MIN GROUND A0425 [facility] MILEAGE 3 EMS EMS PER STATUTE MILE NONEMERGE A0100 [facility] 2 [facility] TRANSPORT ENTERPRIS MANAGEMEN ATION; ES T, TAXI NONEMERGE A0100 [facility] 2 [facility] TRANSPORT ENTERPRIS MANAGEMEN ATION; ES T, TAXI NONEMERGE A0100 [facility] 2 [facility] TRANSPORT ENTERPRIS MANAGEMEN ATION; ES T, TAXI NONEMERGE A0100 [facility] 2 [facility] TRANSPORT ENTERPRIS MANAGEMEN ATION; ES T, TAXI NONEMERGE A0100 [facility] 2 [facility] TRANSPORT ENTERPRIS MANAGEMEN ATION; ES T, TAXI NONEMERGE A0100 [facility] 2 [facility] TRANSPORT ENTERPRIS MANAGEMEN ATION; ES T, TAXI HOME CARE S5108 [employer] TRAIN[facility] 2 [facility] AREA D AREA CARE AGENCY AGENCY CLIENT PER 15 MIN NONEMERGE A0100 [facility] 2 [facility] TRANSPORT ENTERPRIS MANAGEMEN ATION; ES T, TAXI NONEMERGE A0100 [facility] 2 [facility] HE[facility] TRANSPORT ENTERPRIS MANAGEMEN ATION; ES T, TAXI NONEMERGE A0100 [facility] 2 [facility] TRANSPORT ENTERPRIS MANAGEMEN ATION; ES T, TAXI O2 CONC 1 E1390 [facility] 2 MEDICAL MEDICAL 85%/>02 [facility] CONC AT [facility] FLW RATE NONEMERGE A0100 [facility] 2 [facility] TRANSPORT ENTERPRIS MANAGEMEN ATION; ES T, TAXI NONEMERGE A0100 [facility] 2 [facility] HE[facility] TRANSPORT ENTERPRIS MANAGEMEN ATION; ES T, TAXI NONEMERGE A0100 [facility] 2 [facility] TRANSPORT ENTERPRIS MANAGEMEN ATION; ES T, TAXI HOME CARE S5108 [facility] [address] [facility] AREA D AREA CARE AGENCY AGENCY CLIENT PER 15 MIN NONEMERGE A0100 [facility] 2 [facility] TRANSPORT ENTERPRIS MANAGEMEN ATION; ES T, TAXI NONEMERGE A0100 [facility] 2 [facility] TRANSPORT ENTERPRIS MANAGEMEN ATION; ES T, TAXI NONEMERGE A0100 [facility] 2 [facility]SP[facility] ENTERPRIS MANAGEMEN [place]ION; [place], [place] [address] [facility] SKEENS HEAD/BRAI 2 IMAGING & PAUL N W/O CONTRAST INTERVENT MATERIAL I NONEMERGE A0100 [facility] 2 [facility] TRANSP[facility] ENTERPRIS MANAGEMEN ATION; ES T, TAXI COMPREHEN 00425 [facility] SIVE 2 O MEDICAL O MEDICAL METABOLIC ASSOC LA ASSOC LA PANEL PROTHROMB 60397 [facility] IN TIME 2 O MEDICAL O MEDICAL ASSOC LA ASSOC LA COLLECTIO 76863 [facility] N VENOUS 2 O MEDICAL O MEDICAL BLOOD ASSOC LA ASSOC LA VENIPUNCT URE BLOOD 74496 [facility] COUNT 2 O MEDICAL O MEDICAL COMPLETE ASSOC LA ASSOC LA AUTO&AUTO DIFRNTL WBC NONEMERGE A0100 [facility] 2 [facility] TRANSPORT ENTERPRIS MANAGEMEN ATION; ES T, TAXI NONEMERGE A0100 [facility] 2 [facility] TRANSPORT ENTERPRIS MANAGEMEN ATION; ES T, TAXI NONEMERGE A0100 [facility] 2 [facility] TRANSPORT ENTERPRIS MANAGEMEN ATION; ES T, TAXI HOME CARE S5108 [facility] 2 [facility] HOME D AREA D AREA CARE AGENCY AGENCY CLIENT PER 15 MIN NONEMERGE A0100 [facility] 2 [facility] TRANSPORT ENTERPRIS MANAGEMEN ATION; ES T, TAXI NONEMERGE A0100 [facility] 2 [facility] TRANSPORT ENTERPRIS MANAGEMEN ATION; ES T, TAXI NONEMERGE A0100 [facility] 2 [facility] TRANSPORT ENTERPRIS MANAGEMEN ATION; ES T, TAXI NONEMERGE A0100 [facility] 2 TRANS[facility] HEALTH TRANSPORT ENTERPRIS MANAGEMEN ATION; ES T, TAXI NONEMERGE A0100 [facility] 2 TRANS[facility] HEALTH TRANSPORT ENTERPRIS MANAGEMEN ATION; ES T, TAXI O2 CONC 1 E1390 [facility] 2 MEDICAL MEDICAL 85%/>02 [facility] CONC AT [facility] FLW RATE NONEMERGE A0100 [facility] 2 [facility] TRANSPORT ENTERPRIS MANAGEMEN ATION; ES T, TAXI NONEMERGE A0100 [facility] 2 [facility] TRANSPORT ENTERPRIS MANAGEMEN ATION; ES T, TAXI NONEMERGE A0100 [facility] 2 [facility] TRANSPORT ENTERPRIS MANAGEMEN ATION; ES T, TAXI ALBUTEROL J7613 F & H F & H INHAL 2 DRUG DRUG NON-CP PROD THRU DME U DOSE 1 MG PHRM Q0513 F & H F & H DISPENSIN 2 DRUG DRUG G FEE INHALATIO N RX; PER 30 DAYS NONEMERGE A0100 [facility] 2 [facility] TRANSPORT ENTERPRIS MANAGEMEN ATION; ES T, TAXI NONEMERGE A0100 [facility] 2 [facility] TRANSPORT ENTERPRIS MANAGEMEN ATION; ES T, [facility] C[facility] [id number] [facility] 2 [facility] D AREA D AREA CARE AGENCY AGENCY CLIENT PER 15 MIN NONEMERGE A0100 [facility] TRANSPORT ENTERPRIS MANAGEMEN ATION; ES T, [facility] NONEMERGE A0100 [facility] TRANS[facility] HEALTH TRANSPORT ENTERPRIS MANAGEMEN ATION; ES T, TAXI NONEMERGE A0100 [facility] 2 TRANSIT HEALTH TRANSPORT ENTERPRIS MANAGEMEN ATION; ES T, TAXI NONEMERGE A0100 [facility] 2 TRANS[facility] HEALTH TRANSPORT ENTERPRIS MANAGEMEN ATION; ES T, TAXI DEBRIDEME [id number] [facility] NT NAIL 2 D FOOT & DEN ANY ANKLE METHOD CENT 6/> NONEMERGE A0100 [facility] TR[facility] TRANSPORT ENTERPRIS MANAGEMEN ATION; ES T, TAXI NONEMERGE A0100 [facility] TRANS[facility] HE[facility] TRANSPORT ENTERPRIS MANAGEMEN ATION; ES T, T[facility]I COLLECTIO [id number] [facility] N VENOUS 2 O MEDICAL O MEDICAL BLOOD ASSOC LA ASSOC LA VENIPUNCT URE PROTHROMB [id number] [facility] IN TIME 2 O MEDICAL O MEDICAL ASSOC LA ASSOC LA COMPREHEN [id number] [facility] SIVE 2 O MEDICAL O MEDICAL METABOLIC ASSOC LA ASSOC LA PANEL LIPID 12446 [facility] PANEL 2 O MEDICAL O MEDICAL ASSOC LA ASSOC LA NONEMERGE A0100 [facility] TRANS[facility] HE[facility] TRANSPORT ENTERPRIS MANAGEMEN ATION; ES T, TAXI NONEMERGE A0100 [facility] 2 TRANSIT HEALTH TRANSPORT ENTERPRIS MANAGEMEN ATION; ES T, TAXI NONEMERGE A0100 [facility] 2 TRANS[facility] HEALTH TRANSPORT ENTERPRIS MANAGEMEN ATION; ES T, TAXI NONEMERGE A0100 [facility] 2 TRANS[facility] TRANSPORT ENTERPRIS MANAGEMEN ATION; ES T, [facility] [id number] AREA CARE AGENCY AGENCY CLIENT PER 15 MIN NONEMERGE A0100 [facility] 2 TR[facility] TRANSPORT ENTERPRIS MANAGEMEN ATION; ES T, TAXI NONEMERGE A0100 [facility] 2 TRANS[facility] HEALTH TRANSPORT ENTERPRIS MANAGEMEN ATION; ES T, TAXI NONEMERGE A0100 [facility] 2 TRANS[facility] HEALTH TRANSPORT ENTERPRIS MANAGEMEN ATION; ES T, [facility] O2 CONC 1 [id number] [facility] 2 MEDICAL MEDICAL 85%/>02 [facility] CONC AT [facility] FLW RATE NONEMERGE A0100 [facility] 2 TRANS[facility] TRANSPORT ENTERPRIS MANAGEMEN ATION; ES T, T[facility]I PROTHROMB [id number] [facility] 2 O MEDICAL O MEDICAL ASSOC LA ASSOC LA NONEMERGE A0100 [facility] 2 TRANS[facility] TRANSPORT ENTERPRIS MANAGEMEN ATION; ES T, T[facility]I NONEMERGE A0100 [facility] 2 TR[facility] TRANSPORT ENTERPRIS MANAGEMEN ATION; ES T, [facility] [id number] AREA CARE AGENCY AGENCY CLIENT PER 15 MIN NONEMERGE A0100 [facility] TRANSPORT ENTERPRIS MANAGEMEN ATION; ES T, T[facility]I PROTHROMB [id number] [facility] IN TIME 2 O MEDICAL O MEDICAL ASSOC LA ASSOC LA ALBUTEROL J7613 F & H F & H INHAL 2 DRUG DRUG NON-CP PROD THRU DME U DOSE 1 MG PHRM Q0513 F & H F & H DISPENSIN 2 DRUG DRUG G FEE INHALATIO N RX; PER 30 DAYS NONEMERGE A0100 [facility] 2 [facility] TRANSPORT ENTERPRIS MANAGEMEN ATION; ES T, TAXI NONEMERGE A0100 [facility] 2 TRANSIT HEALTH TRANSPORT ENTERPRIS MANAGEMEN ATION; ES T, TAXI NONEMERGE A0100 [facility] 2 TR[facility] TRANSPORT ENTERPRIS MANAGEMEN ATION; ES T, TAXI NONEMERGE A0100 [facility] TR[facility] TRANSPORT ENTERPRIS MANAGEMEN ATION; ES T, [facility] NON-INVAS [id number] [facility] TIKA 2 D FOOT & DEN PHYSIOLOG ANKLE IC STUDY CENT EXTREMITY 3 LEVLS NONEMERGE A0100 [facility] 2 [facility] TRANSPORT ENTERPRIS MANAGEMEN ATION; ES T, TAXI NONEMERGE A0100 [facility] 2 TR[facility] TRANSPORT ENTERPRIS MANAGEMEN ATION; ES T, [facility] S5108 [facility] 2 [facility] HOME D AREA D AREA CARE AGENCY AGENCY CLIENT PER 15 MIN NONEMERGE A0100 [facility] TRANSPORT ENTERPRIS MANAGEMEN ATION; ES T, TAXI NONEMERGE A0100 [facility] TRANSPORT ENTERPRIS MANAGEMEN ATION; ES T, TAXI NONEMERGE A0100 [facility] 2 TRANSIT HEALTH TRANSPORT ENTERPRIS MANAGEMEN ATION; ES T, TAXI O2 CONC 1 E1390 [facility] [place] 2 MEDICAL MEDICAL 85%/>02 [facility] CONC AT [facility] FLW RATE NONEMERGE A0100 [facility] 2 TRANSIT HEALTH TRANSPORT ENTERPRIS MANAGEMEN ATION; ES T, TAXI LANCETS A4259 LIBERTY LIBERTY PER BOX 2 MEDICAL MEDICAL OF 100 SUPPLY SUPPLY INC. INC. NORMAL A4256 LIBERTY LIBERTY LOW AND 2 MEDICAL MEDICAL HIGH SUPPLY SUPPLY [employer]. INC. R SOLUTION/ CHIPS BLD GLU A4253 LIBERTY LIBERTY TEST/REAG 2 MEDICAL MEDICAL T STRIPS SUPPLY SUPPLY HOME [employer] INC. GLU MON-50 NONEMERGE A0100 [facility] 2 TRANSIT HEALTH TRANSPORT ENTERPRIS MANAGEMEN ATION; ES T, TAXI NONEMERGE A0100 [facility] 2 TRANSIT HEALTH TRANSPORT ENTERPRIS MANAGEMEN ATION; ES T, TAXI NONEMERGE A0100 [facility] 2 TRANSIT HEALTH TRANSPORT ENTERPRIS MANAGEMEN ATION; ES T, TAXI HOME CARE S5108 [facility] [address] [facility] AREA AREA CARE AGENCY AGENCY CLIENT PER 15 MIN NONEMERGE A0100 [facility] 2 TRANSIT HEALTH TRANSPORT ENTERPRIS MANAGEMEN ATION; ES T, TAXI NONEMERGE A0100 [facility] 2 TRANSIT HEALTH TRANSPORT ENTERPRIS MANAGEMEN ATION; ES T, TAXI NONEMERGE A0100 [facility] 2 TRANSIT HEALTH TRANSPORT ENTERPRIS MANAGEMEN ATION; ES T, TAXI NONEMERGE A0100 [facility] 2 TRANSIT HEALTH TRANSPORT ENTERPRIS MANAGEMEN ATION; ES T, TAXI NONEMERGE A0100 [facility] 2 TRANSIT HEALTH TRANSPORT ENTERPRIS MANAGEMEN ATION; ES T, TAXI PROTHROMB 50520 LONG ALVES IN TIME 2 O MEDICAL O MEDICAL ASSOC LA ASSOC LA NONEMERGE A0100 [facility] 2 TRANSIT HEALTH TRANSPORT ENTERPRIS MANAGEMEN ATION; ES T, TAXI NONEMERGE A0100 [facility] 2 TRANSIT HEALTH TRANSPORT ENTERPRIS MANAGEMEN ATION; ES T, TAXI NONEMERGE A0100 [facility] 2 TRANSIT HEALTH TRANSPORT ENTERPRIS MANAGEMEN ATION; ES T, TAXI NONEMERGE A0100 [facility] TRANS[facility] HEALTH TRANSPORT ENTERPRIS MANAGEMEN ATION; ES T, TAXI HOME CARE S5108 [facility] 2 [facility] AREA CARE AGENCY AGENCY CLIENT PER 15 MIN NONEMERGE A0100 [facility] 2 TRANSIT HEALTH TRANSPORT ENTERPRIS MANAGEMEN ATION; ES T, TAXI PROTHROMB 92796 LONG [facility] IN TIME 2 O MEDICAL O MEDICAL ASSOC LA ASSOC LA NONEMERGE A0100 [facility] 2 TRANSIT HEALTH TRANSPORT ENTERPRIS MANAGEMEN ATION; ES T, TAXI NONEMERGE A0100 [facility] 2 TRANSIT HEALTH TRANSPORT ENTERPRIS MANAGEMEN ATION; ES T, TAXI O2 CONC 1 E1390 [facility] 2 MEDICAL MEDICAL 85%/>02 LLC LLC CONC AT [facility] FLW RATE NONEMERGE A0100 [facility] 2 TRANSIT HEALTH TRANSPORT ENTERPRIS MANAGEMEN ATION; ES T, TAXI NONEMERGE A0100 [facility] 2 TRANSIT HEALTH TRANSPORT ENTERPRIS MANAGEMEN ATION; ES T, TAXI NONEMERGE A0100 [facility] 2 TRANSIT HEALTH TRANSPORT ENTERPRIS MANAGEMEN ATION; ES T, TAXI HOME CARE S5108 [employer] [facility] [address] Global [employer] D AREA D AREA CARE AGENCY AGENCY CLIENT PER 15 MIN NONEMERGE A0100 [facility] 2 TRANS[facility] HEALTH TRANSPORT ENTERPRIS MANAGEMEN ATION; ES T, TAXI ECG 99201 CHIDI MURILLO ROUTINE 2 CARDIOLOG CARDIOLOG ECG Y Y W/LEAST 12 LDS W/I&R NONEMERGE A0100 [facility] 2 TRANS[facility] HEALTH TRANSPORT ENTERPRIS MANAGEMEN ATION; ES T, TAXI NONEMERGE A0100 [facility] 2 TRANSIT HEALTH TRANSPORT ENTERPRIS MANAGEMEN ATION; ES T, TAXI NONEMERGE A0100 [facility] 2 TRANSIT HEALTH TRANSPORT ENTERPRIS MANAGEMEN ATION; ES T, TAXI NONEMERGE A0100 [facility] TRANSIT HEALTH TRANSPORT ENTERPRIS MANAGEMEN ATION; ES T, TAXI PROTHROMB 26772 [facility] TIME 2 O MEDICAL O MEDICAL ASSOC LA ASSOC LA NONEMERGE A0100 [facility] 2 TRANSIT HEALTH TRANSPORT ENTERPRIS MANAGEMEN ATION; ES T, TAXI NONEMERGE A0100 [facility] 2 TRANSIT HEALTH TRANSPORT ENTERPRIS MANAGEMEN ATION; ES T, TAXI HOME CARE S5108 [employer] TRAINING [address] [facility] [employer] D AREA D AREA CARE AGENCY AGENCY CLIENT PER 15 MIN ECHO 87397 [facility] R-T 2 CARDIOLOG 2D Y W/WOM-MOD E COMPL SPEC&COLR D NONEMERGE A0100 [facility] 2 TRANSIT HEALTH TRANSPORT ENTERPRIS MANAGEMEN ATION; ES T, TAXI NONEMERGE A0100 [facility] 2 TRANSIT HEALTH TRANSPORT ENTERPRIS MANAGEMEN ATION; ES T, TAXI NONEMERGE A0100 [facility] 2 TRANSIT HEALTH TRANSPORT ENTERPRIS MANAGEMEN ATION; ES T, TAXI NONEMERGE A0100 [facility] 2 TRANSIT HEALTH TRANSPORT ENTERPRIS MANAGEMEN ATION; ES T, TAXI O2 CONC 1 E1390 [facility] [place] 2 MEDICAL MEDICAL 85%/>02 [facility] CONC AT [facility] FLW RATE NONEMERGE A0100 [facility] 2 TRANSIT HEALTH TRANSPORT ENTERPRIS MANAGEMEN ATION; ES T, TAXI NONEMERGE A0100 [facility] 2 TRANSIT HEALTH TRANSPORT ENTERPRIS MANAGEMEN ATION; ES T, TAXI HOME CARE S5108 [facility] TRAINING 2 [facility] D AREA D AREA CARE AGENCY AGENCY CLIENT PER 15 MIN INJECTION J1245 SEWANEEET FERNANDEZ JAY JAY 2 CARDIOLOG DIPYRIDAM Y OLE PER 10 MG MYOCARDIA 46706 SEWANEEET FERNANDEZ JAY JAY L SPECT 2 CARDIOLOG MULTIPLE Y STUDIES TECHNETIU A9500 ARGENISSHERIDAN FERNANDEZ JAY JAY M TC-99M 2 CARDIOLOG SESTAMIBI Y DX PER STUDY DOSE ECG 65507 CHIDI KIMBALLA ROUTINE 2 CARDIOLOG ECG Y W/LEAST 12 LDS W/I&R NONEMERGE A0100 [facility] 2 TRANSIT HEALTH TRANSPORT ENTERPRIS MANAGEMEN ATION; ES T, TAXI NONEMERGE A0100 [facility] 2 TRANSIT HEALTH TRANSPORT ENTERPRIS MANAGEMEN ATION; ES T, TAXI INJECTION J1100 ESSIE CALL 2 DEXAMETHO SONE SODIUM PHOSPHATE 1 MG ARTHROCEN 94533 ESSIE CALL TESIS 2 ASPIR&/IN J MAJOR JT/BURSA W/O US NONEMERGE A0100 [facility] 2 TRANSIT HEALTH TRANSPORT ENTERPRIS MANAGEMEN ATION; ES T, TAXI NONEMERGE A0100 [facility] 2 TRANS[facility] HEALTH TRANSPORT ENTERPRIS MANAGEMEN ATION; ES T, TAXI MRI ANY 60539 [facility] JT LOWER 2 CUMBERLAN CUMBERLAN EXTREM D D W/O REGIONAL REGIONAL CONTRAST HOS HOS MATRL NONEMERGE A0100 [facility] 2 TRANSIT HEALTH TRANSPORT ENTERPRIS MANAGEMEN ATION; ES T, TAXI NONEMERGE A0100 [facility] 2 TRANSIT HEALTH TRANSPORT ENTERPRIS MANAGEMEN ATION; ES T, TAXI NONEMERGE A0100 [facility] 2 TRANSIT HEALTH TRANSPORT ENTERPRIS MANAGEMEN ATION; ES T, TAXI PROTHROMB 17717 [facility] IN TIME 2 O MEDICAL O MEDICAL ASSOC LA ASSOC LA HOME CARE S5108 [facility] TRAINING 2 [facility] HOME D AREA D AREA CARE AGENCY AGENCY CLIENT PER 15 MIN NONEMERGE A0100 [facility] 2 TRANSIT HEALTH TRANSPORT ENTERPRIS MANAGEMEN ATION; ES T, TAXI NONEMERGE A0100 [facility] 2 TRANSIT HEALTH TRANSPORT ENTERPRIS MANAGEMEN ATION; ES T, TAXI NONEMERGE A0100 [facility] 2 TRANSIT HEALTH TRANSPORT ENTERPRIS MANAGEMEN ATION; ES T, TAXI PROTHROMB 52669 [facility] IN TIME 2 O MEDICAL O MEDICAL ASSOC LA ASSOC LA DISPBL T4535 PERSONAL PERSONAL LINER/JARED 2 TOUCH TOUCH ELD/GUARD HOME LONGTERM CARE /PAD/UNDG OF OF RMNT INCONT EA O2 CONC 1 E1390 [facility] 2 MEDICAL MEDICAL 85%/>02 [facility] CONC AT [facility] FLW RATE ECG 51443 [facility] ROUTINE 2 [facility] ECG D D W/LEAST REGIONAL REGIONAL 12 LDS HOS HOS TRCG ONLY W/O I&R PROTHROMB 86211 [facility] IN TIME 2 CUMBERLAN CUMBERLAN D D REGIONAL REGIONAL HOS HOS THER 72540 [facility] PROPH/DX 2 CUMBERLAN CUMBERLAN NJX IV D D PUSH REGIONAL REGIONAL SINGLE/1S HOS HOS T SBST/DRUG CREATINE 71573 [facility] KINASE 2 CUM[facility]AN CUM[facility] TOTAL D D REGIONAL [facility] CREATINE 55808 [facility] KINASE MB 2 CUM[facility]AN CUM[facility]AN FRACTION D D ONLY [facility] BLOOD 21210 [facility] COUNT 2 [facility]UM[facility]UM[facility] COMPLETE D D AUTO&AUTO REGIONAL REGIONAL DIFRNTL HOS HOS WBC COLLECTIO 03168 [facility] N VENOUS 2 CUMBERLAN CUMBERLAN BLOOD D D VENIPUNCT [place] [address] [facility] TROPONIN 2 [facility]UM[facility]AN CUM[facility] QUANTITAT D D TIKA [facility] COMPREHEN 03840 [facility] SIVE 2 CUMBER[facility]AN [facility]UM[facility] METABOLIC D D PANEL [facility]AL REG[facility]AL HOS HOS GROUND A0425 [facility] MILEAGE 2 EMS EMS PER STATUTE MILE ECG 18076 PRIETO KELLEY ROUTINE 2 EMERGENCY KOL ECG SERVICES W/LEAST 12 LDS I&R ONLY RADIOLOGI 60384 [facility] C 2 CUMBERLAN CUMBERLAN EXAMINATI D D ON CHEST REGIONAL REGIONAL SINGLE HOS HOS VIEW FRONTAL AMB A0427 [facility] SERVICE 2 EMS EMS ALS EMERGENCY TRANSPORT LEVEL 1 NONEMERGE A0100 [facility] 2 TRANSIT HEALTH TRANSPORT ENTERPRIS MANAGEMEN ATION; ES T, TAXI PROTHROMB 63967 [facility] IN TIME 2 O MEDICAL O MEDICAL ASSOC LA ASSOC LA HOME CARE S5108 [facility] TRAINING 2 [facility] HOME D AREA D AREA CARE AGENCY AGENCY CLIENT PER 15 MIN HOME CARE S5108 [facility] TRAINING 2 [facility] HOME D AREA D AREA CARE AGENCY AGENCY CLIENT PER 15 MIN NONEMERGE A0100 [facility] 2 TRANSIT HEALTH TRANSPORT ENTERPRIS MANAGEMEN ATION; ES T, TAXI NONEMERGE A0100 [facility] TRANSIT HEALTH TRANSPORT ENTERPRIS MANAGEMEN ATION; ES T, TAXI NEBULIZER E0570 CASTRO ERAZO WITH 2 MEDICAL MEDICAL COMPRESSO EQUIPMENT EQUIPMENT R RADEX 66263 [facility] FOREARM 2 2 CUMBERLAN CUMBER[place]AN VIEWS D D REGIONAL REGIONAL HOS HOS RADIOLOGI 29197 [facility] EXAM 2 CUMBERLAN CUMBERLAN KNEE D D COMPLETE REGIONAL REGIONAL 4/MORE HOS HOS VIEWS STRAPPING 42057 PRIETO KIMBLE KNEE 2 EMERGENCY GRE SERVICES GROUND A0425 [facility] MILEAGE 2 EMS EMS PER STATUTE MILE NONEMERG A0120 [facility] TRNSPRT: 2 TRANSIT TRANSIT MINI-BUS [employer] ENTERPRIS MNN ES AREA/OTH SYS AMBULANCE A0429 [facility] SERVICE 2 EMS EMS BLS EMERGENCY TRANSPORT GROUND A0425 [facility] MILEAGE 2 EMS EMS PER STATUTE MILE COMPREHEN 59132 [facility] SIVE 2 HOSP INC HOSP INC METABOLIC PANEL NONINVASI 01586 [facility] VE 2 HOSP INC HOSP INC EAR/PULSE OXIMETRY SINGLE DETER ECG 71967 EMERGENCY SHANKS ROUTINE 2 COVERAGE LYN ECG W/LEAST CORPORATI 12 LDS I&R ONLY ECG 58678 [facility] ROUTINE 2 HOSP INC HOSP INC ECG W/LEAST 12 LDS TRCG ONLY W/O I&R PROTHROMB 52805 [facility] IN TIME 2 HOSP INC HOSP INC CREATINE 12467 [facility] KINASE 2 HOSP INC HOSP INC TOTAL BLOOD 65532 [facility] COUNT 2 HOSP INC HOSP INC COMPLETE AUTO&AUTO DIFRNTL WBC CREATINE 69434 [facility] KINASE MB 2 H[place] [address] [facility] TROPONIN 2 HOSP INC HOSP INC QUANTITAT TIKA COLLECTIO 90944 [facility] N VENOUS 2 HOSP INC HOSP INC BLOOD VENIPUNCT URE NATRIURET 45551 [facility] IC 2 HOSP INC HOSP INC PEPTIDE AMB A0427 [facility] SERVICE 2 EMS EMS ALS EMERGENCY TRANSPORT LEVEL 1 RADIOLOGI 64039 [facility] C 2 HOSP INC HOSP INC EXAMINATI ON CHEST SINGLE VIEW FRONTAL THROMBOPL 20572 [facility] ASTIN 2 HOSP INC HOSP INC TIME PARTIAL PLASMA/WH OLE BLOOD HOME CARE S5108 [facility] TRAINING 2 [facility] D AREA D AREA CARE AGENCY AGENCY CLIENT PER 15 MIN SBSQ 97600 [facility] 2 MEDICAL CARE/DAY GROUP 15 [facility] MINUTES SBSQ 78007 [place] [address] MEDICAL SCO CARE/DAY GROUP 15 [facility] SBSQ 76692 [facility] MEDICAL CARE/DAY GROUP 25 [facility] SBSQ 13342 [facility] 2 MEDICAL CARE/DAY GROUP 25 [facility] MINUTES ARTHROCEN 69449 MICHELLE MARTINEZ TESIS 2 JR [facility] ASPIR&/IN J MAJOR JT/BURSA W/O RADIOLOGI 62933 MICHELLE MARTINEZ C EXAM 2 JR [facility] KNEE COMPLETE 4/MORE VIEWS RADIOLOGI 28789 IZABELA VEGA C 2 D. EXAMINATI RADIOLOGY ON KNEE ASSOC 1/2 VIEWS O2 CONC 1 E1390 [facility] 2 MEDICAL MEDICAL 85%/>02 [facility] CONC AT [facility] FLW RATE SBSQ 22747 [facility] 2 MEDICAL SCO CARE/[facility] GROUP [facility] 29713 [facility] 2 MEDICAL EDW CARE/[facility] GROUP 50 [facility] RADIOLOGI 76425 IZABELA Tyler EXAM 2 KNEE RADIOLOGY COMPLETE ASSOC 4/MORE VIEWS PROTHROMB 94846 LONG ALVES IN TIME 2 O MEDICAL O MEDICAL ASSOC LA ASSOC LA RADIOLOGI 40700 LONG ALFARO C 2 O MEDICAL JUAN EXAMINATI ON KNEE ASSOCIATE 1/2 VIEWS NONEMERGE A0100 [facility] 2 TRANSIT HEALTH TRANSPORT ENTERPRIS MANAGEMEN ATION; ES T, TAXI NONEMERGE A0100 [facility] 2 TRANSIT HEALTH TRANSPORT ENTERPRIS MANAGEMEN ATION; ES T, TAXI PROTHROMB 98360 LONG [facility]VES IN TIME 2 O MEDICAL O MEDICAL ASSOC LA ASSOC LA SKIN TEST 86013 [facility]JIT SMI[facility] 2 [facility] S[facility] DE[facility]PARTM INTRADERM AL NONEMERGE A0100 [facility] 2 TRANSIT HEALTH TRANSPORT ENTERPRIS MANAGEMEN ATION; ES T, TAXI HOME CARE S5108 [facility] TRAINING [address] [facility] HOME D AREA D AREA CARE AGENCY AGENCY CLIENT PER 15 MIN NONEMERGE A0100 [facility] TRANSIT HEALTH TRANSPORT ENTERPRIS MANAGEMEN ATION; ES T, TAXI NONEMERGE A0100 [facility] 2 TRANSIT HEALTH TRANSPORT ENTERPRIS MANAGEMEN ATION; ES T, TAXI NEBULIZER E0570 CASTRO ERAZO WITH 2 MEDICAL MEDICAL COMPRESSO EQUIPMENT EQUIPMENT R BLOOD 55152 [facility] COUNT 2 O MEDICAL O MEDICAL COMPLETE ASSOC LA ASSOC LA AUTO&[place] [address] [facility] THYROID 2 O MEDICAL O MEDICAL STIMULATI ASSOC LA ASSOC LA NG HORMONE TSH COLLECTIO 19631 [facility] N VENOUS 2 O MEDICAL O MEDICAL BLOOD ASSOC LA ASSOC LA VENIPUNCT URE HEMOGLOBI 41147 LONG [facility]AY N 2 O MEDICAL O MEDICAL GLYCOSYLA ASSOC LA ASSOC LA DOTTIE A1C PROTHROMB 06881 LONG ALVES IN TIME 2 O MEDICAL O MEDICAL ASSOC LA ASSOC LA COMPREHEN 61998 [facility] SIVE 2 O MEDICAL O MEDICAL METABOLIC ASSOC LA ASSOC LA PANEL LIPID 72526 LONG ALVES PANEL 2 O MEDICAL O MEDICAL ASSOC LA ASSOC LA NONEMERGE A0100 [facility] 2 TRANSIT HEALTH TRANSPORT ENTERPRIS MANAGEMEN ATION; ES T, TAXI NONEMERGE A0100 [facility] 2 TRANSIT HEALTH TRANSPORT ENTERPRIS MANAGEMEN ATION; ES T, TAXI NONEMERGE A0100 [facility] TRANSIT HEALTH TRANSPORT ENTERPRIS MANAGEMEN ATION; ES T, TAXI NONEMERGE A0100 [facility] 2 TRANSIT HEALTH TRANSPORT ENTERPRIS MANAGEMEN ATION; ES T, TAXI NONEMERGE A0100 [facility] TRANSIT HEALTH TRANSPORT ENTERPRIS MANAGEMEN ATION; ES T, TAXI HOME CARE S5108 [facility] 2 [facility] [facility] Pay-Me[facility] D AREA D AREA CARE AGENCY AGENCY CLIENT PER 15 MIN NONEMERGE A0100 [facility] TRANSIT HEALTH TRANSPORT ENTERPRIS MANAGEMEN ATION; ES T, TAXI PROTHROMB 27433 LONG AL[facility]ES IN TIME 2 O MEDICAL O MEDICAL ASSOC LA ASSOC LA NONEMERGE A0100 [facility] TRANSIT HEALTH TRANSPORT ENTERPRIS MANAGEMEN ATION; ES T, TAXI O2 CONC 1 E1390 [facility] 2 MEDICAL MEDICAL 85%/>02 [facility] CONC AT [facility] FLW RATE NONEMERGE A0100 [facility] TRANSIT HEALTH TRANSPORT ENTERPRIS MANAGEMEN ATION; ES T, TAXI PROTHROMB 53469 LONG [facility] IN TIME 2 O MEDICAL O MEDICAL ASSOC LA ASSOC LA NONEMERGE A0100 [facility] 2 TRANSIT HEALTH TRANSPORT ENTERPRIS MANAGEMEN ATION; ES T, TAXI HOME CARE S5108 [facility] TRAINING 2 [facility] [employer] [place] D AREA D AREA CARE AGENCY AGENCY CLIENT PER 15 MIN NONEMERGE A0100 [facility] 2 TRANSIT HEALTH TRANSPORT ENTERPRIS MANAGEMEN ATION; ES T, TAXI NONEMERGE A0100 [facility] TRANSIT HEALTH TRANSPORT ENTERPRIS MANAGEMEN ATION; ES T, TAXI NONEMERGE A0100 [facility] TRANSIT HEALTH TRANSPORT ENTERPRIS MANAGEMEN ATION; ES T, [facility] [address] [place] [facility] DISCHARGE 2 MEDICAL [facility] DAY GROUP MANAGEMEN [place] T 30 MIN/< NEBULIZER E0570 CASTRO ERAZO WITH 2 MEDICAL MEDICAL COMPRESSO EQUIPMENT EQUIPMENT R SBSQ 26595 [facility] 2 CARDIOLOG CARE/DAY Y 25 MINUTES GROUND A0425 [facility] MILEAGE 2 EMS EMS PER STATUTE MILE INITIAL 21081 [facility] 2 MEDICAL EDW CARE/DAY GROUP 50 [place] MINUTES MYOCARDIA 63336 [facility] L SPECT 2 CARDIOLOG MULTIPLE Y STUDIES DUPLEX 34586 [facility] WOOLDRIDG SCAN 2 E MAYNOR EXTRACRAN RADIOLOGY IAL ART ASSOC COMPL BI STUDY ECHO 67867 [facility] TTHRC R-T 2 CARDIOLOG 2D Y W/WOM-MOD E COMPL SPEC&COLR D INITIAL 02525 [facility] 2 CARDIOLOG CARE/DAY Y 70 MINUTES AMB A0427 [facility] SERVICE 2 EMS EMS ALS EMERGENCY TRANSPORT LEVEL 1 MRI BRAIN 52478 [facility] SHABBIR BRAIN 2 RABIA STEM W/O RADIOLOGY CONTRAST ASSOC MATERIAL THROMBOPL 71214 [facility] ASTIN 2 HOSP INC HOSP INC TIME PARTIAL PLASMA/WH OLE BLOOD RADIOLOGI 21693 [facility] C 2 HOSP INC HOSP INC EXAMINATI ON CHEST SINGLE VIEW FRONTAL THERAPEUT 88770 [facility] IC 2 HOSP INC HOSP INC INJECTION IV PUSH EACH NEW DRUG INJECTION J2270 [facility] MORPHINE 2 HOSP INC HOSP INC SULFATE UP TO 10 [place] [address] [facility] TROPONIN 2 HOSP INC HOSP INC QUANTITAT TIKA COLLECTIO 23762 [facility] N VENOUS 2 HOSP INC HOSP INC BLOOD VENIPUNCT URE BLOOD 96281 [facility] COUNT 2 HOSP INC HOSP INC COMPLETE AUTO&AUTO DIFRNTL WBC CREATINE 83049 [facility] KINASE MB 2 HOSP INC HOSP INC FRACTION ONLY PROTHROMB 46888 [facility] IN TIME 2 HOSP INC HOSP INC THER 75139 [facility] PROPH/DX 2 HOSP INC HOSP INC NJX IV PUSH SINGLE/1S T SBST/DRUG CREATINE 16958 [facility] KINASE 2 HOSP INC HOSP INC TOTAL ECG 16792 [facility] ROUTINE 2 HOSP INC HOSP INC ECG W/LEAST 12 LDS TRCG ONLY W/O I&R ECG 54113 EMERGENCY SHANKS ROUTINE 2 COVERAGE LYN ECG W/LEAST CORPORATI 12 LDS I&R ONLY NONINVASI 44116 [facility] VE 2 HOSP INC HOSP INC EAR/PULSE OXIMETRY SINGLE DETER COMPREHEN 87924 [facility] SIVE 2 HOSP INC HOSP INC METABOLIC PANEL NONEMERGE A0100 [facility] 2 TRANSIT HEALTH TRANSPORT ENTERPRIS MANAGEMEN ATION; ES T, TAXI NONEMERGE A0100 [facility] 2 TRANSIT HEALTH TRANSPORT ENTERPRIS MANAGEMEN ATION; ES T, TAXI NONEMERGE A0100 [facility] TRANSIT HEALTH TRANSPORT ENTERPRIS MANAGEMEN ATION; ES T, TAXI HOME CARE S[address] AREA D AREA CARE AGENCY AGENCY CLIENT PER 15 MIN NONEMERGE A0100 [facility] 2 TRANSIT HEALTH TRANSPORT ENTERPRIS MANAGEMEN ATION; ES T, TAXI NONEMERGE A0100 [facility] 2 TRANSIT HEALTH TRANSPORT ENTERPRIS MANAGEMEN ATION; ES T, TAXI NONEMERGE A0100 [facility] TRANSIT HEALTH TRANSPORT ENTERPRIS MANAGEMEN ATION; ES T, TAXI PROTHROMB 61358 LONG ALVES IN TIME 2 O MEDICAL O MEDICAL ASSOC LA ASSOC LA NONEMERGE A0100 [facility] 2 TRANSIT HEALTH TRANSPORT ENTERPRIS MANAGEMEN ATION; ES T, TAXI O2 CONC 1 E1390 [facility] 2 MEDICAL MEDICAL 85%/>02 [facility] CONC AT [facility] FLW RATE NONEMERGE A0100 [facility] 2 TRANSIT HEALTH TRANSPORT ENTERPRIS MANAGEMEN ATION; ES T, TAXI NONEMERGE A0100 [facility] 2 TRANSIT HEALTH TRANSPORT ENTERPRIS MANAGEMEN ATION; ES T, TAXI PROTHROMB 31308 [facility] IN TIME 2 O MEDICAL O MEDICAL ASSOC LA ASSOC LA NONEMERGE A0100 [facility] 2 TRANSIT HEALTH TRANSPORT ENTERPRIS MANAGEMEN ATION; ES T, TAXI NONEMERGE A0100 [facility] 2 TRANSIT HEALTH TRANSPORT ENTERPRIS MANAGEMEN ATION; ES T, TAXI HOME CARE S5108 [facility] 2 [facility] D AREA D AREA CARE AGENCY AGENCY CLIENT PER 15 MIN NONEMERGE A0100 [facility] 2 TRANSIT TRANSIT TRANSPORT ENTERPRIS ENTERPRIS ATION; ES ES TAXI PROTHROMB 99990 [facility] IN TIME 2 O MEDICAL O MEDICAL ASSOC LA ASSOC LA NEBULIZER E0570 [facility] WITH 2 MEDICAL MEDICAL COMPRESSO EQUIPMENT EQUIPMENT R NONEMERGE A0100 [facility] 2 TRANSIT TRANSIT TRANSPORT ENTERPRIS ENTERPRIS ATION; ES ES TAXI NONEMERGE A0100 [facility]URAL [facility] 2 TRANSIT TRANSIT TRANSPORT ENTERPRIS ENTERPRIS ATION; ES ES TAXI NONEMERGE A0100 [facility] 2 TRANSIT TRANSIT TRANSPORT ENTERPRIS ENTERPRIS ATION; ES ES TAXI NONEMERGE A0100 [facility] 2 TRANSIT TRANSIT TRANSPORT ENTERPRIS ENTERPRIS ATION; ES ES TAXI SPRING-PO A4258 [facility] WERED 2 MEDICAL MACHINE WHITENER SUPPLY SUPPLY FOR LANCET EACH LANCETS A4259 [facility] PER BOX 2 MEDICAL MEDICAL OF 100 SUPPLY SUPPLY BLD GLU A4253 [facility] TEST/REAG 2 MEDICAL MEDICAL T STRIPS SUPPLY SUPPLY HOME BLD GLU MON-50 DISPBL [id number] PERSONAL PERSONAL LINER/JARED 2 TOUCH TOUCH ELD/GUARD HOME LONGTERM CARE /PAD/UNDG OF OF RMNT INCONT EA NONEMERGE A0100 [facility] 2 TRANSIT TRANSIT TRANSPORT ENTERPRIS ENTERPRIS ATION; ES ES TAXI INCONTINE T4541 PERSONAL PERSONAL NCE 2 TOUCH TOUCH PRODUCT HOME LONGTERM CARE DISPOSABL OF OF E UNDPAD LARGE EA HOME CARE S5108 [facility] AREA AREA CARE AGENCY AGENCY CLIENT PER 15 MIN NONEMERGE A0100 [facility] 2 TRANSIT TRANSIT TRANSPORT ENTERPRIS ENTERPRIS ATION; ES ES TAXI NONEMERGE A0100 [facility] 2 TRANSIT TRANSIT TRANSPORT ENTERPRIS ENTERPRIS ATION; ES ES TAXI NONEMERGE A0100 [facility] 2 TRANSIT TRANSIT TRANSPORT ENTERPRIS ENTERPRIS ATION; ES ES TAXI O2 CONC 1 E1390 [facility] MEDICAL MEDICAL 85%/>02 [facility] CONC AT [facility] FLW RATE NONEMERGE A0100 [facility] 2 TRANSIT TRANSIT TRANSPORT ENTERPRIS ENTERPRIS ATION; ES ES TAXI NONEMERGE A0100 [facility] 2 TRANSIT TRANSIT TRANSPORT ENTERPRIS ENTERPRIS ATION; ES ES TAXI NONEMERGE A0100 [facility] 2 TRANSIT TRANSIT TRANSPORT ENTERPRIS ENTERPRIS ATION; ES ES TAXI HOME CARE S5108 [facility] [address] [facility] D AREA CARE AGENCY AGENCY CLIENT PER 15 MIN NONEMERGE A0100 [facility] 2 TRANSIT TRANSIT TRANSPORT ENTERPRIS ENTERPRIS ATION; ES ES TAXI NONEMERGE A0100 [facility] 2 TRANSIT TRANSIT TRANSPORT ENTERPRIS ENTERPRIS ATION; ES ES TAXI PROTHROMB 58168 [facility] IN TIME 2 O MEDICAL O MEDICAL ASSOC LA ASSOC LA ALBUMIN 10692 [facility] URINE 2 [employer] MIN QUANTIATI VE CREATININ 76292 [facility] G[facility] E OTHER 2 [employer] 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 [address] [facility] THYROID 2 O MEDICAL O MEDICAL STIMULATI ASSOC LA ASSOC LA NG HORMONE TSH BLOOD 03986 [facility] COUNT 2 O MEDICAL O MEDICAL COMPLETE ASSOC LA ASSOC LA AUTO&AUTO DIFRNTL WBC COLLECTIO 78875 [facility] N VENOUS 2 O MEDICAL O MEDICAL BLOOD ASSOC LA ASSOC LA VENIPUNCT URE HEMOGLOBI 71943 [facility] N 2 O MEDICAL O MEDICAL GLYCOSYLA ASSOC LA ASSOC LA DOTTIE A1C COMPREHEN 01097 [facility] SIVE 2 O MEDICAL O MEDICAL METABOLIC ASSOC LA ASSOC LA PANEL LIPID 39460 [facility] PANEL 2 O MEDICAL O MEDICAL ASSOC LA ASSOC LA NONEMERGE A0100 [facility] 2 TRANSIT TRANSIT TRANSPORT ENTERPRIS ENTERPRIS ATION; ES ES TAXI NONEMERGE A0100 [facility] 2 TRANSIT TRANSIT TRANSPORT ENTERPRIS ENTERPRIS ATION; ES ES TAXI NONEMERGE A0100 [facility] 2 TRANSIT TRANSIT TRANSPORT ENTERPRIS ENTERPRIS ATION; ES ES TAXI NONEMERGE A0100 [facility] 2 TRANSIT TRANSIT TRANSPORT ENTERPRIS ENTERPRIS ATION; ES ES TAXI NONEMERGE A0100 [facility] 2 TRANSIT TRANSIT TRANSPORT ENTERPRIS ENTERPRIS ATION; ES ES TAXI NONEMERGE A0100 [facility] 2 TRANSIT TRANSIT TRANSPORT ENTERPRIS ENTERPRIS ATION; ES ES [facility] HOME CARE S5108 [facility] 2 [facility] HOME D AREA D AREA CARE AGENCY AGENCY CLIENT PER 15 MIN NONEMERGE A0100 [facility] 2 TRANSIT TRANSIT TRANSPORT ENTERPRIS ENTERPRIS ATION; ES ES TAXI NONEMERGE A0100 [facility] 2 TRANSIT TRANSIT TRANSPORT ENTERPRIS ENTERPRIS ATION; ES ES [facility]I O2 CONC 1 E1390 [facility] MEDICAL MEDICAL 85%/>[facility] CONC AT [facility] FLW RATE NONEMERGE A0100 [facility] 2 TRANSIT TRANSIT TRANSPORT ENTERPRIS ENTERPRIS ATION; ES ES TAXI NONEMERGE A0100 [facility] 2 TRANSIT TRANSIT TRANSPORT ENTERPRIS ENTERPRIS ATION; ES ES TAXI NONEMERGE A0100 [facility] TRANSIT TRANSPORT ENTERPRIS ENTERPRIS ATION; ES ES [facility] HOME CARE S5108 [facility] [address] [facility] AREA D AREA CARE AGENCY AGENCY CLIENT PER 15 MIN NONEMERGE A0100 [facility] 1 TRANSIT HEALTH TRANSPORT ENTERPRIS MANAGEMEN ATION; ES T TAXI NONEMERGE A0100 [facility] 1 TRANSIT HEALTH TRANSPORT ENTERPRIS MANAGEMEN ATION; ES T TAXI NONEMERGE A0100 [facility] 1 TRANSIT HEALTH TRANSPORT ENTERPRIS MANAGEMEN ATION; ES T TAXI NONEMERGE A0100 [facility] HEALTH TRANSPORT ENTERPRIS MANAGEMEN ATION; ES T TAXI NEBULIZER E0570 [facility] WITH 1 MEDICAL MEDICAL COMPRESSO EQUIPMENT EQUIPMENT R NONEMERGE A0100 [facility] 1 TRANSIT HEALTH TRANSPORT ENTERPRIS MANAGEMEN ATION; ES T TAXI NONEMERGE A0100 [facility] 1 TRANSIT HEALTH TRANSPORT ENTERPRIS MANAGEMEN ATION; ES T TAXI NONEMERGE A0100 [facility] 1 TRANSIT HEALTH TRANSPORT ENTERPRIS MANAGEMEN ATION; ES T TAXI NONEMERGE A0100 [facility] TRANSIT HEALTH TRANSPORT ENTERPRIS MANAGEMEN ATION; ES T [facility] HOME CARE S5108 [facility] [address] [facility] AREA AREA CARE AGENCY AGENCY CLIENT PER 15 MIN NONEMERGE A0100 [facility] 1 TRANSIT HEALTH TRANSPORT ENTERPRIS MANAGEMEN ATION; ES T TAXI NONEMERGE A0100 [facility] 1 TRANSIT HEALTH TRANSPORT ENTERPRIS MANAGEMEN ATION; ES T TAXI NONEMERGE A0100 [facility] 1 TRANSIT HEALTH TRANSPORT ENTERPRIS MANAGEMEN ATION; ES T TAXI NONEMERGE A0100 [facility] 1 TRANSIT HEALTH TRANSPORT ENTERPRIS MANAGEMEN ATION; ES T TAXI O2 CONC 1 E1390 [facility] MEDICAL MEDICAL 85%/>[facility] [employer] [facility] CONC AT [facility] FLW RATE NONEMERGE A0100 [facility] 1 TRANSIT HEALTH TRANSPORT ENTERPRIS MANAGEMEN ATION; ES T TAXI NONEMERGE A0100 [facility] 1 TRANSIT HEALTH TRANSPORT ENTERPRIS MANAGEMEN ATION; ES T TAXI NONEMERGE A0100 [facility] 1 TRANSIT HEALTH TRANSPORT ENTERPRIS MANAGEMEN ATION; ES T [facility] HOME CARE S5108 [facility] 1 [facility] D AREA D AREA CARE AGENCY AGENCY CLIENT PER 15 MIN NONEMERGE A0100 [facility] 1 TRANSIT HEALTH TRANSPORT ENTERPRIS MANAGEMEN ATION; ES T TAXI NONEMERGE A0100 [facility] 1 TRANSIT HEALTH TRANSPORT ENTERPRIS MANAGEMEN ATION; ES T [facility] HOME CARE S5108 [facility] TRA[facility] 1 [facility] D AREA D AREA CARE AGENCY AGENCY CLIENT PER 15 MIN PROTHROMB 83579 [facility] IN TIME 1 O MEDICAL O MEDICAL ASSOC LA ASSOC LA REPL LIU A4235 [facility] LITHIUM 1 MEDICAL MEDICAL MED NECES SUPPLY SUPPLY MERON BG MON OWN PT EA BLD GLU A4253 [facility] TEST/REAG 1 MEDICAL MEDICAL T STRIPS SUPPLY SUPPLY HOME BLD GLU MON-50 NORMAL A4256 [facility] LOW AND 1 MEDICAL MEDICAL HIGH SUPPLY SUPPLY CALIBRATO R SOLUTION/ CHIPS LANCETS A4259 [facility] PER BOX 1 MEDICAL MEDICAL OF 100 SUPPLY SUPPLY NEBULIZER E0570 [facility] ERA[facility] WITH 1 MEDICAL MEDICAL COMPRESSO EQUIPMENT EQUIPMENT R HOME CARE S5108 [facility] TRA[facility] 1 [facility] HOME D AREA D AREA CARE AGENCY AGENCY CLIENT PER 15 MIN HOME CARE S5108 [facility] TRA[facility] 1 [facility] D AREA D AREA CARE AGENCY AGENCY CLIENT PER 15 MIN HOME CARE S5108 [facility] TRA[facility] 1 [facility] D AREA D AREA CARE AGENCY AGENCY CLIENT PER 15 MIN NONEMERGE A0100 [facility] 1 TRANSIT HEALTH TRANSPORT ENTERPRIS MANAGEMEN ATION; ES T [facility] HOME CARE S5108 [facility] 1 [facility] D AREA D AREA CARE AGENCY AGENCY CLIENT PER 15 MIN HOME CARE S5108 [facility] 1 [facility] D AREA D AREA CARE AGENCY AGENCY CLIENT PER 15 MIN NONEMERGE A0100 [facility] 1 TRANSIT HEALTH TRANSPORT ENTERPRIS MANAGEMEN ATION; ES T TAXI NONEMERGE A0100 [facility] 1 TRANSIT HEALTH TRANSPORT ENTERPRIS MANAGEMEN ATION; ES T [facility] HOME CARE S5108 [facility] 1 [facility] D AREA D AREA CARE AGENCY AGENCY CLIENT PER 15 MIN PROTHROMB 63728 [facility] IN TIME 1 O MEDICAL O MEDICAL ASSOC LA ASSOC LA HOME CARE S5108 [facility] 1 [facility] D AREA D AREA CARE AGENCY AGENCY CLIENT PER 15 MIN NONEMERGE A0100 [facility] 1 TRANSIT HEALTH TRANSPORT ENTERPRIS MANAGEMEN ATION; ES T TAXI NONEMERGE A0100 [facility] 1 TRANSIT HEALTH TRANSPORT ENTERPRIS MANAGEMEN ATION; ES T TAXI NONEMERGE A0100 [facility] 1 TRANSIT HEALTH TRANSPORT ENTERPRIS MANAGEMEN ATION; ES T [facility] HOME CARE S5108 [facility] 1 [facility] D AREA D AREA CARE AGENCY AGENCY CLIENT PER 15 MIN PROTHROMB [id number] [place] [address] IN TIME 1 O MEDICAL O MEDICAL [...] CLIENT PER 15 MIN HOME CARE S5108 [facility] [address] [facility] D AREA CARE AGENCY AGENCY CLIENT PER 15 MIN HOME CARE S5108 [facility] TRAIN[facility] 1 [facility] HOME D AREA D AREA CARE AGENCY AGENCY CLIENT PER 15 MIN NONEMERGE A0100 [facility] 1 TRANSIT HEALTH TRANSPORT ENTERPRIS MANAGEMEN ATION; ES T TAXI PROTHROMB 25199 [facility] IN TIME 1 O MEDICAL O MEDICAL ASSOC LA ASSOC LA HOME CARE S5108 [facility] TRA[facility] D AREA CARE AGENCY AGENCY CLIENT PER 15 MIN OBSERVATI 27051 MALLY MADELINE [place] CARE 1 MEDICAL DISCHARGE SERV FOUNDATIO MANAGEMEN T ECG 52166 MALLY SHETES ELISA ROUTINE 1 MEDICAL ECG SERV W/LEAST FOUNDATIO 12 LDS I&R ONLY ELECTROEN 58703 MALLY GIUSEPPE GUL CEPHALOGR 1 MEDICAL AM W/REC SERV AWAKE&[place] [address] AMLLY BARNES BAUDILIO HEAD/BRAI 1 MEDICAL N W/[place] [address] IZABELA WOOLDRIDG HEAD/BRAI 1 E MAYNOR N W/O RADIOLOGY CONTRAST ASSOC MATERIAL RADIOLOGI 76897 IZABELA LYN C 1 EXAMINATI RADIOLOGY ON CHEST ASSOC SINGLE VIEW FRONTAL ECG 05398 EMERGENCY ARANA ROUTINE 1 COVERAGE SEA ECG W/LEAST CORPORATI 12 LDS I&R ONLY NONINVASI 95341 [facility] VE 1 HOSP INC HOSP INC EAR/PULSE OXIMETRY SINGLE DETER INSJ TEMP 51440 [facility] NDWELLG 1 HOSP INC HOSP INC 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 SBSQ 97444 [facility] 1 MEDICAL CARE/DAY SERV 25 FOUNDATIO MINUTES INITIAL 81087 [facility] 1 MEDICAL CARE/DAY SERV 70 FOUNDATIO MINUTES MRA HEAD 96404 [place] ASHA KWA W/O 1 MEDICAL CONTRST SERV MATERIAL FOUNDATIO MRA NECK 12031 [place] ASHA KWA W/O 1 MEDICAL CONTRST SERV MATERIAL FOUNDATIO MRI BRAIN 23175 MALLY RENEE BRAIN 1 MEDICAL STEM W/[place] [address] [facility] HEAD/BRAI 1 HOSP INC HOSP INC N W/O CONTRAST MATERIAL DRUG SCR [id number] [facility] NOT 1 HOSP INC HOSP INC CHROMATOG RAPHIC; ANY NUMBER PT ENC AMB [id number] [facility] SERVICE 1 EMS EMS ALS EMERGENCY TRANSPORT LEVEL 1 INJECTION [id number] [facility] 1 HOSP INC HOSP INC KETOROLAC TROMETHAM INE PER 15 MG THROMBOPL 52876 [facility] ASTIN 1 HOSP INC HOSP INC TIME PARTIAL PLASMA/WH OLE BLOOD NONEMERGE A0100 [facility] 1 TRANSIT HEALTH TRANSPORT ENTERPRIS MANAGEMEN ATION; ES T [facility] HOME CARE S5108 [facility] 1 [facility] D AREA D AREA CARE AGENCY AGENCY CLIENT PER 15 MIN BLOOD 41693 [facility] COUNT 1 HOSP INC HOSP INC COMPLETE AUTO&AUTO DIFRNTL WBC COLLECTIO 57695 [facility] N VENOUS 1 HOSP INC HOSP INC BLOOD VENIPUNCT URE PROTHROMB 22776 [facility] IN TIME 1 HOSP INC HOSP INC THER 94317 [facility] PROPH/DX 1 HOSP INC HOSP INC NJX IV PUSH SINGLE/1S T SBST/DRUG GROUND A0425 [facility] MILEAGE 1 EMS EMS PER STATUTE MILE INSJ TEMP 71996 [facility] NDWELLG 1 HOSP INC HOSP INC 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 SIMPLE COMPREHEN 96045 [facility] SIVE 1 HOSP INC HOSP INC METABOLIC PANEL URNLS DIP 34698 [facility] 1 HOSP INC HOSP INC STICK/TAB LET RGNT AUTO W/O MICROSCOP Y NONINVASI 66687 [facility] VE 1 HOSP INC HOSP INC EAR/PULSE OXIMETRY SINGLE DETER NONEMERGE A0100 [facility] 1 TRANSIT HEALTH TRANSPORT ENTERPRIS MANAGEMEN ATION; ES T TAXI NONEMERGE A0100 [facility] 1 TRANSIT HEALTH TRANSPORT ENTERPRIS MANAGEMEN ATION; ES T TAXI NONEMERGE A0100 [facility] 1 TRANSIT HEALTH TRANSPORT ENTERPRIS MANAGEMEN [...] CLIENT PER 15 MIN NONEMERGE A0100 [facility] 1 TRANSIT HEALTH TRANSPORT ENTERPRIS MANAGEMEN ATION; ES T TAXI PROTHROMB 32671 [facility] IN TIME 1 O MEDICAL O [...] MEDICAL MEDICAL COMPRESSO EQUIPMENT EQUIPMENT R PROTHROMB 15882 [facility] IN TIME 1 O MEDICAL O MEDICAL ASSOC LA ASSOC LA HOME CARE S5108 [facility] 1 [facility] D AREA D AREA CARE AGENCY AGENCY CLIENT PER 15 MIN NONEMERGE A0100 [facility] 1 TRANSIT HEALTH TRANSPORT ENTERPRIS MANAGEMEN ATION; ES T [facility]I HOME CARE S5108 [facility] 1 [facility] D AREA D AREA CARE AGENCY AGENCY CLIENT PER 15 MIN NONEMERGE A0100 [facility] 1 TRANSIT HEALTH TRANSPORT ENTERPRIS MANAGEMEN ATION; ES T TAXI NONEMERGE A0100 [facility] 1 TRANSIT HEALTH TRANSPORT ENTERPRIS MANAGEMEN ATION; ES T [facility] HOME CARE S5108 [facility] 1 [facility] D AREA D AREA CARE AGENCY AGENCY CLIENT PER 15 MIN NONEMERGE A0100 [facility] 1 TRANSIT HEALTH TRANSPORT ENTERPRIS MANAGEMEN ATION; ES T TAXI NONEMERGE A0100 [facility] 1 TRANSIT HEALTH TRANSPORT ENTERPRIS MANAGEMEN ATION; ES T [facility]I HOME CARE S5108 [facility] 1 [facility] D AREA D AREA CARE AGENCY AGENCY CLIENT PER 15 MIN NONEMERGE A0100 [facility] 1 TRANSIT HEALTH TRANSPORT ENTERPRIS MANAGEMEN ATION; ES T [facility]I HOME CARE S5108 [facility] 1 [facility] D AREA D AREA CARE AGENCY AGENCY CLIENT PER 15 MIN NONEMERGE A0100 [facility] 1 TRANSIT HEALTH TRANSPORT ENTERPRIS MANAGEMEN ATION; ES T [facility] HOME CARE S5108 [facility] 1 [facility] D AREA D AREA CARE AGENCY AGENCY CLIENT PER 15 MIN HOME CARE S5108 [facility] 1 [facility] D AREA D AREA CARE AGENCY AGENCY CLIENT PER 15 MIN NONEMERGE A0100 [facility] 1 TRANSIT HEALTH TRANSPORT ENTERPRIS MANAGEMEN ATION; ES T TAXI NONEMERGE A0100 [facility] 1 TRANSIT HEALTH TRANSPORT ENTERPRIS MANAGEMEN ATION; ES T TAXI NONEMERGE A0100 [facility] TRANSIT HEALTH TRANSPORT ENTERPRIS MANAGEMEN ATION; ES T [facility] HOME CARE S5108 [facility] 1 [facility] D AREA D AREA CARE AGENCY AGENCY CLIENT PER 15 MIN NONEMERGE A0100 [facility] 1 TRANSIT HEALTH TRANSPORT ENTERPRIS MANAGEMEN ATION; ES T TAXI NONEMERGE A0100 [facility] 1 TRANSIT HEALTH TRANSPORT ENTERPRIS MANAGEMEN ATION; ES T [facility] HOME CARE S5108 [facility] 1 [facility] D AREA D AREA CARE AGENCY AGENCY CLIENT PER 15 MIN NONEMERGE A0100 [facility] 1 TRANSIT HEALTH TRANSPORT ENTERPRIS MANAGEMEN ATION; ES T TAXI NONEMERGE A0100 [facility] 1 TRANSIT HEALTH TRANSPORT ENTERPRIS MANAGEMEN ATION; ES T [facility]I HOME CARE S5108 [facility] AREA D AREA CARE AGENCY AGENCY CLIENT PER 15 MIN NEBULIZER E0570 [facility] ERAZO WITH 1 MEDICAL MEDICAL COMPRESSO EQUIPMENT EQUIPMENT R HOME CARE S5108 [facility] TRA[facility] ARE[facility] D AREA CARE AGENCY AGENCY CLIENT PER 15 MIN NONEMERGE A0100 [facility] 1 TRANSIT HEALTH TRANSPORT ENTERPRIS MANAGEMEN ATION; ES T TAXI NONEMERGE A0100 [facility] 1 TRANSIT HEALTH TRANSPORT ENTERPRIS MANAGEMEN ATION; ES T TAXI NONEMERGE A0100 [facility] 1 TRANSIT HEALTH TRANSPORT ENTERPRIS MANAGEMEN ATION; ES T TAXI NONEMERGE A0100 [facility] 1 TRANSIT HEALTH TRANSPORT ENTERPRIS MANAGEMEN ATION; ES T [facility]I HOME CARE S5108 [facility] TRA[facility] AREA D AREA CARE AGENCY AGENCY CLIENT PER 15 MIN CONTINUOU E0601 [facility] 1 MEDICAL [facility] AIRWAY PRESSURE DEVICE HOME CARE S5108 [facility] AREA D AREA CARE AGENCY AGENCY CLIENT PER 15 MIN NONEMERGE A0100 [facility] 1 TRANSIT HEALTH TRANSPORT ENTERPRIS MANAGEMEN ATION; ES T TAXI NONEMERGE A0100 [facility] 1 TRANSIT HEALTH TRANSPORT ENTERPRIS MANAGEMEN ATION; ES T TAXI LIPID 79090 [facility] PANEL 1 O MEDICAL O MEDICAL ASSOC LA ASSOC LA COMPREHEN 61625 [facility] SIVE 1 O MEDICAL O MEDICAL METABOLIC ASSOC LA ASSOC LA PANEL BLOOD 23701 [facility] COUNT 1 O MEDICAL O MEDICAL COMPLETE ASSOC LA ASSOC LA AUTO&[place] [address] [facility] THYROID 1 O MEDICAL O MEDICAL STIMULATI ASSOC LA ASSOC LA NG HORMONE TSH HEMOGLOBI 86210 [facility] N 1 O MEDICAL O MEDICAL GLYCOSYLA ASSOC LA ASSOC LA DOTTIE A1C COLLECTIO 36228 [facility] N VENOUS 1 O MEDICAL O MEDICAL BLOOD ASSOC LA ASSOC LA VENIPUNCT URE PROTHROMB 41166 [facility] IN TIME 1 O MEDICAL O MEDICAL ASSOC LA ASSOC LA NONEMERGE A0100 [facility] 1 TRANSIT HEALTH TRANSPORT ENTERPRIS MANAGEMEN ATION; ES T TAXI HOME CARE S5108 [facility] 1 [facility] D AREA D AREA CARE AGENCY AGENCY CLIENT PER 15 MIN MISC TX T1999 [facility] & 1 [facility] SPL D AREA D AREA RETAIL AGENCY AGENCY PURCHASE NOC HOME CARE S5108 [facility] 1 [facility] D AREA D AREA CARE AGENCY AGENCY CLIENT PER 15 MIN NONEMERGE A0100 [facility] 1 TRANSIT HEALTH TRANSPORT ENTERPRIS MANAGEMEN ATION; ES T TAXI NONEMERGE A0100 [facility] 1 TRANSIT HEALTH TRANSPORT ENTERPRIS MANAGEMEN ATION; ES T [facility]AXI HOME CARE S5108 [facility] 1 [facility] D AREA D AREA CARE AGENCY AGENCY CLIENT PER 15 MIN NONEMERGE A0100 [facility] 1 TRANSIT HEALTH TRANSPORT ENTERPRIS MANAGEMEN ATION; ES T TAXI HOME CARE S5108 [facility] 1 [facility] D AREA D AREA CARE AGENCY AGENCY CLIENT PER 15 MIN HOME CARE S5108 [facility] 1 [facility] D AREA D AREA CARE AGENCY AGENCY CLIENT PER 15 MIN NONEMERGE A0100 [facility] 1 TRANSIT HEALTH TRANSPORT ENTERPRIS MANAGEMEN ATION; ES T TAXI NONEMERGE A0100 [facility] 1 TRANSIT HEALTH TRANSPORT ENTERPRIS MANAGEMEN ATION; ES T TAXI HOME CARE S5108 [facility] TRAIN[facility] 1 [facility] D AREA D AREA CARE AGENCY AGENCY CLIENT PER 15 MIN HOME CARE S5108 [facility] 1 [facility] D AREA D AREA CARE AGENCY AGENCY CLIENT PER 15 MIN NONEMERGE A0100 [facility] 1 TRANSIT HEALTH TRANSPORT ENTERPRIS MANAGEMEN ATION; ES T TAXI HOME CARE S5108 [facility] TRAINING 1 [facility] D AREA D AREA CARE AGENCY AGENCY CLIENT PER 15 MIN HOME CARE S5108 [facility] 1 [facility] D AREA D AREA CARE AGENCY AGENCY CLIENT PER 15 MIN NONEMERGE A0100 [facility] 1 TRANSIT HEALTH TRANSPORT ENTERPRIS MANAGEMEN ATION; ES T TAXI NONEMERGE A0100 [facility] 1 TRANSIT HEALTH TRANSPORT ENTERPRIS MANAGEMEN ATION; ES T TAXI NEBULIZER E0570 [facility] WITH 1 MEDICAL MEDICAL COMPRESSO EQUIPMEN EQUIPMEN R SCREENING G0202 [facility] CO 1 HOSP INC HOSP INC MAMMOGRAP HY KARLA INCL CAD WHEN PERFORMD COMPUTER 92487 [facility] CO AIDED 1 HOSP INC HOSP INC DETECTION SCREENING MAMMOGRAP HY NONEMERGE A0100 [facility] 1 TRANSIT HEALTH TRANSPORT ENTERPRIS MANAGEMEN ATION; ES T TAXI HOME CARE S5108 [facility] TRAINING 1 [facility] AREA D AREA CARE AGENCY AGENCY CLIENT PER 15 MIN HOME CARE S5108 [facility] 1 [facility] D AREA D AREA CARE AGENCY AGENCY CLIENT PER 15 MIN NONEMERGE A0100 [facility] 1 TRANSIT HEALTH TRANSPORT ENTERPRIS MANAGEMEN ATION; ES T TAXI NONEMERGE A0100 [facility] 1 TRANSIT HEALTH TRANSPORT ENTERPRIS MANAGEMEN ATION; ES T TAXI CONTINUOU E0601 [facility] 1 [facility] AIRWAY PRESSURE DEVICE PROTHROMB 58725 [facility] IN TIME 1 O MEDICAL O MEDICAL ASSOC LA ASSOC LA NONEMERGE A0100 [facility] 1 TRANSIT HEALTH TRANSPORT ENTERPRIS MANAGEMEN ATION; ES T [facility]I HOME CARE S5108 [facility] 1 [facility] D AREA D AREA CARE AGENCY AGENCY CLIENT PER 15 MIN HOME CARE S5108 [facility] 1 [facility] D AREA D AREA CARE AGENCY AGENCY CLIENT PER 15 MIN NONEMERGE A0100 [facility] 1 TRANSIT HEALTH TRANSPORT ENTERPRIS MANAGEMEN ATION; ES T TAXI NONEMERGE A0100 [facility] 1 TRANSIT HEALTH TRANSPORT ENTERPRIS MANAGEMEN ATION; ES T TAXI NONEMERGE A0100 [facility] 1 TRANSIT HEALTH TRANSPORT ENTERPRIS MANAGEMEN ATION; ES T TAXI HOME CARE S5108 [facility] 1 [facility] D AREA D AREA CARE AGENCY AGENCY CLIENT PER 15 MIN HOME CARE S5108 [facility] 1 [facility] D AREA D AREA CARE AGENCY AGENCY CLIENT PER 15 MIN NONEMERGE A0100 [facility] 1 TRANSIT HEALTH TRANSPORT ENTERPRIS MANAGEMEN ATION; ES T TAXI NONEMERGE A0100 [facility] 1 TRANSIT HEALTH TRANSPORT ENTERPRIS MANAGEMEN ATION; ES T [facility] HOME CARE S5108 [facility] 1 [facility] D AREA D AREA CARE AGENCY AGENCY CLIENT PER 15 MIN NONEMERGE A0100 [facility] 1 TRANSIT HEALTH TRANSPORT ENTERPRIS MANAGEMEN ATION; ES T [facility]AXI HOME CARE S5108 [facility] 1 [facility] D AREA D AREA CARE AGENCY AGENCY CLIENT PER 15 MIN PROTHROMB 89161 [facility] TIME 1 HOSP INC HOSP INC CREATINE 46795 [facility] KINASE 1 HOSP INC HOSP INC TOTAL CREATINE 31501 [facility] K[facility] MB 1 HOSP INC HOSP INC FRACTION ONLY BLOOD 72446 [facility] COUNT 1 HOSP INC HOSP INC COMPLETE AUTO&[place] [address] [facility] TROPONIN 1 HOSP INC HOSP INC QUANTITAT TIKA COLLECTIO 29686 [facility] N VENOUS 1 HOSP INC HOSP INC BLOOD VENIPUNCT URE INJECTION J2270 [facility] MORPHINE 1 HOSP INC HOSP INC SULFATE UP TO 10 MG NONINVASI 55776 [facility] VE 1 HOSP INC HOSP INC EAR/PULSE OXIMETRY SINGLE DETER BASIC 79904 [facility] METABOLIC 1 HOSP INC HOSP INC PANEL CALCIUM TOTAL OBSERVATI 25965 [facility] HUSSEIN COR ON CARE 1 HOSPITAL- DISCHARGE HOSPITALI S MANAGEMEN T GROUND A0425 [facility] MILEAGE 1 EMS EMS PER STATUTE MILE COMPREHEN [id number] [facility] SIVE 1 [facility] HOSP INC METABOLIC PANEL NONINVASI 91548 [facility] VE 1 [facility] H[facility] EAR/PULSE OXIMETRY SINGLE DETER ECG 38489 [facility]INE 1 [facility] ELZ ECG W/LEAST CORPORATI 12 LDS I&R ONLY INJECTION [id number] [facility] MORPHINE 1 [facility]P INC [facility] SULFATE UP TO 10 MG COLLECTIO 49122 [facility] N VENOUS 1 [facility] INC [facility] BLOOD VENIPUNCT URE IRON 11867 [facility] BINDING 1 [facility] CAPACITY NATRIURET 16256 [facility] IC [facility] [place] [address] [facility] TROPONIN 1 [facility] QUANTITAT TIKA BLOOD 29263 [facility] COUNT 1 [facility] COMPLETE AUTO&[place] [address] [facility] IRON [place] [address] [facility] THYROID 1 HOSP [facility] HOSP INC STIMULATI NG HORMONE TSH CREATINE 18183 [facility] KINASE MB 1 [facility] FRACTION ONLY CREATINE 61605 [facility] KINASE 1 [facility] TOTAL PROTHROMB 09971 [facility] IN TIME 1 [facility]P INC HOSP INC ECG [id number] [facility] ROUTINE 1 [facility] INC H[facility]P INC ECG W/LEAST 12 LDS TRCG ONLY W/O I&[place] [address] [facility] THYROXINE 1 [facility]P [facility] TOTAL RADIOLOGI 43847 [facility] C 1 [facility] H[facility]P INC EXAMINATI ON CHEST SINGLE VIEW FRONTAL AMB A0427 [facility] SERVICE 1 EMS EMS ALS EMERGENCY TRANSPORT LEVEL 1 HOME CARE S5108 [facility] TRA[facility]ING 1 [facility] D AREA D AREA CARE AGENCY AGENCY CLIENT PER 15 MIN DISPBL T4535 PERSONAL PERSONAL LINER/JARED 1 TOUCH TOUCH ELD/GUARD HOME LONGTERM CARE /PAD/UNDG OF OF RMNT INCONT EA INCONTINE T4541 PERSONAL PERSONAL NCE 1 TOUCH TOUCH PRODUCT HOME LONGTERM CARE DISPOSABL OF OF E UNDPAD LARGE EA NONEMERGE A0100 [facility] NCY 1 [facility] TRANSP[facility] ENTERPRIS MANAGEMEN ATION; ES T TAXI NEBULIZER E0570 [facility] WITH 1 MEDICAL MEDICAL COMPRESSO EQUIPMEN EQUIPMEN R 3D 58212 [employer] R[facility]ERING 1 D. W/INTERP RADIOLOGY & ASSOC POSTPROCE SS SUPERVISI ON CT LUMBAR 69137 [facility] SPINE 1 D. W/O RADIOLOGY CONTRAST ASSOC MATERIAL NONEMERGE A0100 [facility] NCY 1 [facility] TRANSP[facility] ENTERPRIS MANAGEMEN ATION; ES T TAXI HOME CARE S5108 [facility] TRA[facility] 1 [facility] HOME D AREA D AREA CARE AGENCY AGENCY CLIENT PER 15 MIN HOME CARE S5108 [facility] 1 [facility] HOME D AREA D AREA CARE AGENCY AGENCY CLIENT PER 15 MIN FACE MASK A7031 [facility] REPLCMT FULL FACE MASK EA HUMDIFIR E0562 [facility] HEATED 1 [facility] W/POS ARWAY PRESSURE DEVICE CONTINUOU E0601 [facility] S 1 [facility] AIRWAY PRESSURE DEVICE FULL FACE A7030 [facility] MASK 1 [facility] W/POS ARWAY PRESS DEVICE EA FILTER A7038 [facility] DISPBL 1 [facility] W/POS ARWAY PRESSURE DEVICE FILTER A7039 [facility] NON 1 [facility] USED W/POS ARWAY PRESS DEVICE NONINVASI 55325 [facility] VE 1 HOSP INC HOSP INC EAR/PULSE OXIMETRY SINGLE DETER TUBING A7037 [facility] USED WITH 1 [facility] AIRWAY PRESSURE DEVICE GROUND A0425 [facility] MILEAGE 1 EMS EMS PER STATUTE MILE AMBULANCE A0429 [facility] SERVICE 1 EMS EMS BLS EMERGENCY TRANSPORT HEADGEAR A7035 [facility] USED 1 MEDICAL MEDICAL W/POS[employer] [facility] LLC E AIRWAY PRESSURE DEVICE HOME CARE S5108 [facility] TRAINING 1 [facility]UM[facility] HOME D AREA D AREA CARE AGENCY AGENCY CLIENT PER 15 MIN HOME CARE S5108 [facility] TRAINING 1 [facility]UM[facility] HOME D AREA D AREA CARE AGENCY AGENCY CLIENT PER 15 MIN NONEMERGE A0100 [facility] 1 [facility] TRANSPORT ENTERPRIS MANAGEMEN ATION; ES T TAXI NONEMERGE A0100 [facility] 1 [facility] TRANSPORT ENTERPRIS MANAGEMEN ATION; ES T TAXI NONEMERGE A0100 [facility] FLY 1 [facility] TRANSPORT ENTERPRIS MANAGEMEN ATION; ES T TAXI HOME CARE S5108 [facility] TRAINING 1 [facility]UM[facility] HOME D AREA D AREA CARE AGENCY AGENCY CLIENT PER 15 MIN NONINVASI 01607 [facility] VE 1 HOSP INC HOSP INC EAR/PULSE OXIMETRY SINGLE DETER RADEX 07104 [facility] SPINE 1 HOSP INC HOSP INC LUMBOSACR AL MINIMUM 4 VIEWS NONEMERGE A0100 [facility] FLY 1 [facility] TRANSPORT ENTERPRIS MANAGEMEN ATION; ES T TAXI HOME CARE S5108 [facility] TRAINING 1 JOELBERISABEL MALDONADOBERLAN HOME D AREA D AREA CARE AGENCY AGENCY CLIENT PER 15 MIN NONEMERGE A0100 [facility] 1 [facility] TRANSPORT ENTERPRIS MANAGEMEN ATION; ES T TAXI NONEMERGE A0100 [facility]Y 1 [facility] TRANSPORT ENTERPRIS MANAGEMEN ATION; ES T TAXI HOME CARE S5108 [facility]ARE AGENCY AGENCY CLIENT PER 15 MIN NONEMERGE A0100 [facility] NCY 1 [facility] TRANSPORT ENTERPRIS MANAGEMEN ATION; ES T TAXI HOME CARE S5108 [facility] AREA CARE AGENCY AGENCY CLIENT PER 15 MIN NONINVASI 03487 [facility] VE 1 HOSP INC HOSP INC EAR/PULSE OXIMETRY SINGLE DETER OBSERVATI 14509 [facility] HUSSEIN COR ON CARE 1 [facility]OSPITAL- DISCHARGE [facility]PITAL[facility] S MANAGEMEN T COLLECTIO 27316 [facility] N VENOUS 1 HOSP INC HOSP INC BLOOD VENIPUNCT URE INJ J2930 [facility] METHYLPRD 1 HOSP INC HOSP INC NISOLONE SODIUM SUCCNAT TO 125 MG ECG 95331 [facility] ROUTINE 1 HOSP INC HOSP INC ECG W/LEAST 12 LDS TRCG ONLY W/O I&R PROTHROMB 28358 [facility] IN TIME 1 HOSP INC HOSP INC PROTHROMB 55385 [facility] IN TIME 1 [facility]OSP INC HOSP INC CREATINE 27568 [facility] KINASE 1 HOSP INC HOSP INC TOTAL BLOOD 12503 [facility] COUNT 1 HOSP INC HOSP INC COMPLETE AUTOMATED INJ J2930 [facility] METHYLPRD 1 HOSP INC HOSP INC NISOLONE SODIUM SUCCNAT TO 125 MG INJECTION J2270 [facility] MORPHINE 1 HOSP INC HOSP INC SULFATE UP TO 10 MG COLLECTIO 11348 [facility] N VENOUS 1 HOSP INC HOSP INC BLOOD VENIPUNCT URE CREATINE 56985 [facility] KINASE MB 1 HOSP [place] [address] [facility] TROPONIN 1 HOSP INC HOSP INC QUANTITAT TIKA BASIC 34421 [facility] METABOLIC 1 HOSP [facility] HOSP INC PANEL CALCIUM TOTAL INITIAL 75984 [facility] HUSSEIN COR OBSERVATI 1 HOSPITAL- ON HOSPITALI CARE/DAY S 50 MINUTES NONINVASI 07712 [facility] VE 1 HOSP INC HOSP INC EAR/PULSE OXIMETRY SINGLE DETER PRESSURIZ 99889 [facility] ED/NONPRE 1 HOSP [facility] HOSP INC SSURIZED INHALATIO N TREATMENT CULTURE 97819 [facility] BACTERIAL 1 HOSP [facility] HOSP INC BLOOD AEROBIC W/ID ISOLATES BASIC 95022 [facility] METABOLIC 1 HOSP [facility] [place] [place] [address] [facility] TROPONIN 1 HOSP [facility] HOSP INC QUANTITAT TIKA CREATINE 33618 [facility] KINASE MB 1 HOSP [facility] HOSP INC FRACTION ONLY BLOOD 76733 [facility] COUNT 1 HOSP [facility] HOSP INC COMPLETE AUTO&AUTO DIFRNTL WBC COLLECTIO 67642 [facility] N VENOUS 1 HOSP [facility] HOSP INC BLOOD VENIPUNCT URE NONINVASI 26894 [facility] VE 1 HOSP [facility] HOSP INC EAR/PULSE OXIMETRY SINGLE DETER THERAPEUT 01277 [facility] IC 1 HOSP [facility] HOSP INC INJECTION IV PUSH EACH NEW DRUG INJ J2930 [facility] METHYLPRD 1 HOSP [facility] HOSP INC NISOLONE SODIUM SUCCNAT TO 125 MG ARTERIAL 05498 [facility] PUNCTURE 1 HOSP [facility] HOSP INC WITHDRAWA L BLOOD DX BLOOD 14780 [facility] GASES ANY 1 HOSP [facility] HOSP INC COMBINATI ON PH PCO2 PO2 CO2 HCO3 ECG 67376 [facility] ROUTINE 1 HOSP [facility] HOSP INC ECG W/LEAST 12 LDS TRCG ONLY W/O I&R DEMO&/SUKHDEV 92509 [facility] L OF PT 1 HOSP INC HOSP INC UTILIZ AERSL GEN/NEB/I NHLR/IP THER 67530 [facility] PROPH/DX 1 HOSP INC HOSP INC NJX IV PUSH SINGLE/1S T SBST/DRUG CREATINE 20918 [facility] KINASE 1 HOSP INC HOSP INC TOTAL PROTHROMB 28644 [facility] IN TIME 1 HOSP INC HOSP INC RADIOLOGI 80312 [facility] OLVERA JENNIFER C 1 IMAGING & EXAMINATI ON CHEST INTERVENT SINGLE I VIEW FRONTAL INJECTION J1885 [facility] 1 HOSP INC HOSP INC KETOROLAC TROMETHAM INE PER 15 MG THROMBOPL 45301 [facility] ASTIN 1 HOSP INC HOSP INC TIME PARTIAL PLASMA/WH OLE BLOOD HOME CARE S5108 [facility] TRAINING 1 YoubooxBERLAN YoubooxBERLAN HOME D AREA D AREA CARE AGENCY AGENCY CLIENT PER 15 MIN NONEMERGE A0100 [facility] NCY 1 [facility] TRANSPORT ENTERPRIS MANAGEMEN ATION; ES T TAXI NONEMERGE A0100 [facility] FLY 1 [facility] TRANSPORT ENTERPRIS MANAGEMEN ATION; ES T TAXI HOME CARE S5108 [facility] TRAINING 1 YoubooxBERLAN YoubooxBERLAN HOME D AREA D AREA CARE AGENCY AGENCY CLIENT PER 15 MIN NONEMERGE A0100 [facility] FLY 1 [facility] TRANSPORT ENTERPRIS MANAGEMEN ATION; ES T TAXI BLD GLU A4253 [facility] TEST/REAG 1 MEDICAL MEDICAL T STRIPS SUPPLY SUPPLY HOME BLD GLU MON-50 LANCETS A4259 [facility] PER BOX 1 MEDICAL MEDICAL OF 100 SUPPLY SUPPLY NONEMERGE A0100 [facility] FLY 1 [facility] TRANSPORT ENTERPRIS MANAGEMEN ATION; ES T TAXI HOME CARE S5108 [facility] TRAINING 1 YoubooxBERLAN Pay-MeLAN HOME D AREA D AREA CARE AGENCY AGENCY CLIENT PER 15 MIN NONEMERGE A0100 [facility] TRANSPORT ENTERPRIS MANAGEMEN ATION; ES T TAXI PHRM Q0513 F&[facility] DRUGS F&H DRUGS DISPENSIN 1 INC INC G FEE INHALATIO N RX; PER 30 DAYS RADIOLOGI 39368 [facility] SKEENS C EXAM 1 IMAGING & PAUL CHEST 2 VIEWS INTERVENT FRONTAL&L I ATERAL ALBUTEROL J7613 F&H DRUGS F&H DRUGS INHAL 1 INC INC NON-CP PROD THRU DME U DOSE 1 MG NEBULIZER E0570 [facility]STRO ERAZO WITH 1 MEDICAL MEDICAL COMPRESSO EQUIPMEN EQUIPMEN R ADMN SET A7003 CASRTO ERAZO SM VOL 1 MEDICAL MEDICAL NONFILTR EQUIPMEN EQUIPMEN PNEUMAT NEBULIZR DISPBL NONEMERGE A0100 [facility] TRANSPORT ENTERPRIS MANAGEMEN ATION; ES T TAXI HOME CARE S5108 [facility] TRA[facility]ING [address] [facility] Hang w/ D AREA D AREA CARE AGENCY AGENCY CLIENT PER 15 MIN NONEMERGE A0100 [facility] TRANSPORT ENTERPRIS MANAGEMEN ATION; ES T TAXI NONEMERGE A0100 [facility] TRANSPORT ENTERPRIS MANAGEMEN ATION; ES T TAXI HOME CARE S5108 [facility] TRAINING 1 [place] D AREA D AREA CARE AGENCY AGENCY CLIENT PER 15 MIN NONEMERGE A0100 [facility] TRANSPORT ENTERPRIS MANAGEMEN ATION; ES T TAXI NONEMERGE A0100 [facility] TRANSP[facility] ENTERPRIS MANAGEMEN ATION; ES T TAXI HOME CARE S5108 [facility] TRAINING 1 Acorio D AREA D AREA CARE AGENCY AGENCY CLIENT PER 15 MIN SLEEP STD 88123 OSIEL AGUILAR AGUILAR OSIEL AIRFLOW 1 MD HRT CONSULTIN RATE&O2 G SRV SAT EFFORT UNATT NONEMERGE A0100 [facility] TRANSPORT ENTERPRIS MANAGEMEN ATION; ES T TAXI NONEMERGE A0100 [facility] TRANSPORT ENTERPRIS MANAGEMEN ATION; ES T TAXI HOME CARE S5108 [facility] TRAINING 1 Pay-MeLAN JOELBERLAN HOME D AREA D AREA CARE AGENCY AGENCY CLIENT PER 15 MIN HOME CARE S5108 [facility] 1 JOELBERLAN JOELBERLAN HOME D AREA D AREA CARE AGENCY AGENCY CLIENT PER 15 MIN NONEMERGE A0100 [facility] 1 [facility] TRANSPORT ENTERPRIS MANAGEMEN ATION; ES T TAXI NONEMERGE A0100 [facility] 1 [facility] TRANSPORT ENTERPRIS MANAGEMEN ATION; ES T TAXI HOME CARE S5108 [facility] TRAINING 1 JOELBERLAN JOEL[facility]LAN HOME D AREA D AREA CARE AGENCY AGENCY CLIENT PER 15 MIN NONEMERGE A0100 [facility] 1 [facility] TRANSPORT ENTERPRIS MANAGEMEN ATION; ES T TAXI NONEMERGE A0100 [facility] 1 [facility] TRANSPORT ENTERPRIS MANAGEMEN ATION; ES T TAXI HOME CARE S5108 [facility] TRAINING 1 JOELBERISABEL MALDONADOBERLAN HOME D AREA D AREA CARE AGENCY AGENCY CLIENT PER 15 MIN DAY CARE S5100 [facility] 1 ADULT ADULT ADULT; HEALTH HEALTH PER 15 CARE LL CARE LL MINUTES HOME CARE S5108 [facility] TRAINING 1 JOELBERLAN JOELBERLAN HOME D AREA D AREA CARE AGENCY AGENCY CLIENT PER 15 MIN NONEMERGE A0100 [facility] 1 [facility] TRANSPORT ENTERPRIS MANAGEMEN ATION; ES T TAXI NONEMERGE A0100 [facility] 1 [facility] TRANSPORT ENTERPRIS MANAGEMEN ATION; ES T TAXI HOME CARE S5108 [facility] TRAINING 1 JOELBERLAN JOELBERLAN HOME D AREA D AREA CARE AGENCY AGENCY CLIENT PER 15 MIN NONEMERGE A0100 [facility] 1 [facility] TRANSPORT ENTERPRIS MANAGEMEN ATION; ES T TAXI HOME CARE S5108 [facility] TRAINING 1 CUMBERLAN JOELBERLAN HOME D AREA D AREA CARE AGENCY AGENCY CLIENT PER 15 MIN HOME CARE S5108 [facility] 1 CUMBERLAN C[facility] HOME D AREA D AREA CARE AGENCY AGENCY CLIENT PER 15 MIN NONEMERGE A0100 [facility] 1 [facility] TRANSPORT ENTERPRIS MANAGEMEN ATION; ES T TAXI NONEMERGE A0100 [facility] 1 [facility] TRANSPORT ENTERPRIS MANAGEMEN ATION; ES T TAXI NONEMERGE A0100 [facility] 1 [facility] TRANSPORT ENTERPRIS MANAGEMEN ATION; ES T TAXI NONEMERGE A0100 [facility] 1 [facility] TRANSPORT ENTERPRIS MANAGEMEN ATION; ES T TAXI DIAB ONLY A5500 [facility] FIT CSTM 1 D FOOT D FOOT PREP&SPL AND ANKLE AND ANKLE SHOE MX DNSITY INSRT HOME CARE S5108 [facility] TRA[facility] 1 CUMBERLAN C[facility] HOME D AREA D AREA CARE AGENCY AGENCY CLIENT PER 15 MIN FOR DIAB A5512 [facility]UM[facility]AN CUMBERLAN ONLY MX 1 D FOOT D FOOT DNSITY AND ANKLE AND ANKLE INSRT DIR FORMD PRFAB EA HOME CARE S5108 [facility] TRA[facility]ING 1 CUM[facility]LAN [facility] HOME D AREA D AREA CARE AGENCY AGENCY CLIENT PER 15 MIN NONEMERGE A0100 [facility] 1 [facility] TRANSPORT ENTERPRIS MANAGEMEN ATION; ES T TAXI NONEMERGE A0100 [facility] 1 [facility] TRANSPORT ENTERPRIS MANAGEMEN ATION; ES T TAXI HOME CARE S5108 [facility] TRAINING 1 CUM[facility]LAN C[facility] HOME D AREA D AREA CARE AGENCY AGENCY CLIENT PER 15 MIN NONEMERGE A0100 [facility] FLY 1 [facility] TRANSPORT ENTERPRIS MANAGEMEN ATION; ES T TAXI NONEMERGE A0100 [facility] 1 [facility] TRANSPORT ENTERPRIS MANAGEMEN ATION; ES T TAXI HOME CARE S5108 [facility] TRAIN[facility] 1 CUM[facility]LAN C[facility] HOME D AREA D AREA CARE AGENCY AGENCY CLIENT PER 15 MIN NONEMERGE A0100 [facility] 1 [facility] TRANSPORT ENTERPRIS MANAGEMEN ATION; ES T TAXI NONEMERGE A0100 [facility] 1 [facility] TRANSPORT ENTERPRIS MANAGEMEN ATION; ES T TAXI HOME CARE S5108 [facility] TRAINING 1 CUM[facility]LAN C[facility] HOME D AREA D AREA CARE AGENCY AGENCY CLIENT PER 15 MIN NONEMERGE A0100 [facility] 1 [facility] TRANSPORT ENTERPRIS MANAGEMEN ATION; ES T TAXI NONEMERGE A0100 [facility] 1 [facility] TRANSPORT ENTERPRIS MANAGEMEN ATION; ES T TAXI HOME CARE S5108 [facility] TRAINING 1 CUMBERLAN [facility] HOME D AREA D AREA CARE AGENCY AGENCY CLIENT PER 15 MIN HOME CARE S5108 [facility] TRAINING 1 CUM[facility]LAN C[facility] HOME D AREA D AREA CARE AGENCY AGENCY CLIENT PER 15 MIN NONEMERGE A0100 [facility] 1 [facility] TRANSPORT ENTERPRIS MANAGEMEN ATION; ES T TAXI NONEMERGE A0100 [facility] 1 [facility] TRANSPORT ENTERPRIS MANAGEMEN ATION; ES T TAXI HOME CARE S5108 [facility] TRAINING 1 CUMBERLAN [facility] HOME D AREA D AREA CARE AGENCY AGENCY CLIENT PER 15 MIN HOME CARE S5108 [facility] TRAINING 1 CUMBERLAN C[facility] HOME D AREA D AREA CARE AGENCY AGENCY CLIENT PER 15 MIN NONEMERGE A0100 [facility] 1 [facility] TRANSPORT ENTERPRIS MANAGEMEN ATION; ES T TAXI HOME CARE S5108 [facility] TRAINING 1 CUMBERLAN [facility] HOME D AREA D AREA CARE AGENCY AGENCY CLIENT PER 15 MIN THROMBOPL 50679 [facility] ASTIN 1 HOSP INC HOSP INC TIME PARTIAL PLASMA/WH OLE BLOOD NONEMERGE A0100 [facility] 1 [facility] TRANSPORT ENTERPRIS MANAGEMEN ATION; ES T TAXI COMPREHEN 79239 [facility] SIVE 1 HOSP INC HOSP INC METABOLIC PANEL RADIOLOGI 37702 [facility] C EXAM 1 HOSP INC HOSP INC CHEST 2 VIEWS FRONTAL&L ATERAL NONINVASI 12309 [facility] CO VE 1 HOSP INC HOSP INC EAR/PULSE OXIMETRY SINGLE DETER BLOOD 52076 [facility] COUNT 1 HOSP INC HOSP INC COMPLETE AUTO&AUTO DIFRNTL WBC CREATINE 84530 [facility] KINASE MB 1 H[place] [address] [facility] TROPONIN 1 HOSP INC HOSP INC QUANTITAT TIKA COLLECTIO 19042 [facility] N VENOUS 1 HOSP INC HOSP INC BLOOD VENIPUNCT URE PROTHROMB 14032 [facility] IN TIME 1 HOSP INC HOSP INC CREATINE 51286 [facility] KINASE 1 HOSP INC HOSP INC TOTAL ECG 67615 [facility] ROUTINE 1 HOSP INC HOSP INC ECG W/LEAST 12 LDS TRCG ONLY W/O I&R NONEMERGE A0100 [facility] 1 [facility] TRANSPORT ENTERPRIS MANAGEMEN ATION; ES T TAXI HOME CARE S5108 [facility] TRA[facility] 1 [facility] D AREA D AREA CARE AGENCY AGENCY CLIENT PER 15 MIN NONEMERGE A0100 [facility] 1 [facility] TRANSPORT ENTERPRIS MANAGEMEN ATION; ES T TAXI NONEMERGE A0100 [facility] 1 [facility] TRANSPORT ENTERPRIS MANAGEMEN ATION; ES T TAXI HOME CARE S5108 [facility] TRA[facility] 1 [facility] D AREA CARE AGENCY AGENCY CLIENT PER 15 MIN NONEMERGE A0100 [facility] 1 [facility] TRANSPORT ENTERPRIS MANAGEMEN ATION; ES T TAXI NONEMERGE A0100 [facility] TRANSPORT ENTERPRIS MANAGEMEN ATION; ES T TAXI HOME CARE S5108 [facility] TRA[facility] [address] [facility] AREA D AREA CARE AGENCY AGENCY CLIENT PER 15 MIN HOME CARE S5108 [facility] [address] [facility] AREA D AREA CARE AGENCY AGENCY CLIENT PER 15 MIN NONEMERGE A0100 [facility] 1 [facility] TRANSPORT ENTERPRIS MANAGEMEN ATION; ES T TAXI NONEMERGE A0100 [facility] 1 [facility] TRANSPORT ENTERPRIS MANAGEMEN ATION; ES T TAXI NONEMERGE A0100 [facility] 1 [facility] TRANSPORT ENTERPRIS MANAGEMEN ATION; ES T TAXI RADEX 85686 [facility] SPINE 1 O MEDICAL JUAN CERVICAL 2 OR 3 [facility] HOME CARE S5108 [facility] TRA[facility]ING 1 JOELBERLAN JOELBERLAN HOME D AREA D AREA CARE AGENCY AGENCY CLIENT PER 15 MIN BLOOD 93746 [facility] COUNT 1 O MEDICAL O MEDICAL COMPLETE ASSOC LA ASSOC LA AUTO&AUTO DIFRNTL WBC PROTHROMB 51754 [facility] 1 O MEDICAL O MEDICAL ASSOC LA ASSOC LA COLLECTIO 65087 [facility] N VENOUS 1 O MEDICAL O MEDICAL BLOOD ASSOC LA ASSOC LA VENIPUNCT URE HEMOGLOBI 81893 [facility] N 1 O MEDICAL O MEDICAL GLYCOSYLA ASSOC [place] [address] [facility] THYROID 1 O MEDICAL O MEDICAL STIMULATI ASSOC LA ASSOC LA NG HORMONE TSH COMPREHEN 83381 [facility] SIVE 1 O MEDICAL O MEDICAL METABOLIC ASSOC LA ASSOC LA PANEL LIPID 37646 [facility] PANEL 1 O MEDICAL O MEDICAL ASSOC LA ASSOC LA NONEMERGE A0100 [facility] 1 [facility] TRANSPORT ENTERPRIS MANAGEMEN ATION; ES T TAXI NONEMERGE A0100 [facility] 1 [facility] TRANSPORT ENTERPRIS MANAGEMEN ATION; ES T TAXI HOME CARE S5108 [facility] [address] [facility] D AREA D AREA CARE AGENCY AGENCY CLIENT PER 15 MIN HOME CARE S5108 [facility] TRA[facility] 1 YoubooxBERLAN YoubooxBERLAN HOME D AREA D AREA CARE AGENCY AGENCY CLIENT PER 15 MIN NONEMERGE A0100 [facility] 1 [facility] TRANSPORT ENTERPRIS MANAGEMEN ATION; ES T TAXI HOME CARE S5108 [facility] TRAINING 1 CUM[facility]LAN You[facility] HOME D AREA D AREA CARE AGENCY AGENCY CLIENT PER 15 MIN NONEMERGE A0100 [facility] 1 [facility] TRANSPORT ENTERPRIS MANAGEMEN ATION; ES T TAXI NONEMERGE A0100 [facility] 1 [facility] TRANSPORT ENTERPRIS MANAGEMEN ATION; ES T TAXI HOME CARE S5108 [facility] 1 CUM[facility]AN [facility] D AREA D AREA CARE AGENCY AGENCY CLIENT PER 15 MIN NONEMERGE A0100 [facility] 1 [facility] TRANSPORT ENTERPRIS MANAGEMEN ATION; ES T TAXI NONEMERGE A0100 [facility] 1 [facility] TRANSPORT ENTERPRIS MANAGEMEN ATION; ES T TAXI HOME CARE S5108 [facility] 1 CUMBERLAN [facility] HOME D AREA D AREA CARE AGENCY AGENCY CLIENT PER 15 MIN BLD GLU A4253 [facility]ERTY TEST/REAG 1 MEDICAL MEDICAL T STRIPS SUPPLY SUPPLY HOME BLD GLU MON-50 NORMAL A4256 [facility] LOW AND 1 MEDICAL MEDICAL HIGH SUPPLY SUPPLY CALIBRATO R SOLUTION/ CHIPS LANCETS A4259 [facility]ERTY PER BOX 1 MEDICAL MEDICAL OF 100 SUPPLY SUPPLY DISPBL T4535 PERSONAL PERSONAL LINER/JARED 1 TOUCH TOUCH ELD/GUARD HOME LONGTERM CARE /PAD/UNDG OF OF RMNT INCONT EA SPRING-PO A4258 [facility] LIBERTY WERED 1 MEDICAL MACHINE WHITENER SUPPLY SUPPLY FOR LANCET EACH INCONTINE T4541 PERSONAL PERSONAL NCE 1 TOUCH TOUCH PRODUCT HOME LONGTERM CARE DISPOSABL OF OF E UNDPAD LARGE EA NONEMERGE A0100 [facility] 1 [facility] TRANSPORT ENTERPRIS MANAGEMEN ATION; ES T TAXI NONEMERGE A0100 [facility] 1 [facility] TRANSPORT ENTERPRIS MANAGEMEN ATION; ES T TAXI HOME CARE S5108 [facility] 1 CUM[facility]AN [facility] HOME D AREA D AREA CARE AGENCY AGENCY CLIENT PER 15 MIN HOME CARE S5108 [facility] 1 CUMBERLAN CUM[facility] HOME D AREA D AREA CARE AGENCY AGENCY CLIENT PER 15 MIN HOME CARE S5108 [facility] 1 CUMBERLAN C[facility] HOME D AREA D AREA CARE AGENCY AGENCY CLIENT PER 15 MIN HOME CARE S5108 [facility] 1 CUMBERLAN C[facility] HOME D AREA D AREA CARE AGENCY AGENCY CLIENT PER 15 MIN SKIN TEST 11152 [facility] SIS DEPARTM DEPARTM INTRADERM AL HOME CARE S5108 [facility] 1 [...] AGENCY AGENCY CLIENT PER 15 MIN PROTHROMB 83172 [facility] IN TIME 1 O MEDICAL O MEDICAL ASSOC LA ASSOC LA HOME CARE S5108 [facility] 1 [facility] HOME D AREA D AREA CARE AGENCY AGENCY CLIENT PER 15 MIN NONEMERGE A0100 [facility] TRANSP[facility] ENTERPRIS MANAGEMEN ATION; ES T TAXI NONEMERGE A0100 [facility] 1 TRANSIT HEALTH TRANSPORT ENTERPRIS MANAGEMEN ATION; ES T TAXI NONEMERGE A0100 [facility] 1 TRANSIT HEALTH TRANSPORT ENTERPRIS MANAGEMEN ATION; ES T TAXI NONEMERGE A0100 [facility] 1 TRANSIT HEALTH TRANSPORT ENTERPRIS MANAGEMEN ATION; ES T TAXI HOME CARE S5108 [facility] ARE[facility] D AREA CARE AGENCY AGENCY CLIENT PER 15 [place] [address] [facility] LIPASE 1 [facility]P INC HOSP INC BLOOD 64194 [facility] COUNT 1 [facility] H[facility]P INC COMPLETE AUTO&AUTO DIFRNTL WBC RADEX 43637 [facility] ABDOMEN 1 1 IMAGING & ANTEROPOS INTERVENT TERIOR I VIEW RADEX 35455 [facility] ABDOMEN 1 HOSP INC HOSP INC COMPL W/DCBTS&/ [place] [address] [facility] ABDOMEN 1 HOSP INC HOSP INC W/CONTRAS T MATERIAL ECG 64015 [facility] ROUTINE 1 [facility]P INC HOSP INC ECG W/LEAST 12 LDS TRCG ONLY W/O I&[place] [address] [facility] AMYLASE 1 [facility]P INC HOSP INC COLLECTIO 41814 [facility] N VENOUS 1 HOSP INC HOSP INC BLOOD VENIPUNCT URE COMPREHEN 83553 [facility] SIVE 1 HOSP INC HOSP INC METABOLIC PANEL URNLS DIP 43132 [facility] 1 [facility]OSP INC HOSP INC STICK/TAB LET RGNT AUTO W/O MICROSCOP Y NONINVASI 75420 [facility] VE 1 HOSP INC HOSP INC EAR/PULSE OXIMETRY SINGLE DETER CT PELVIS 87046 [facility] 1 HOSP INC HOSP INC W/[place] [address] [facility] JENNIFER ABDOMEN & 1 IMAGING & PELVIS W/CONTRAS INTERVENT T I MATERIAL AMBULANCE [id number] [facility] SERVICE 1 EMS EMS BLS EMERGENCY TRANSPORT GROUND A0425 [facility] MILEAGE 1 EMS EMS PER STATUTE MILE NONEMERGE A0100 [facility] TRANSPORT ENTERPRIS MANAGEMEN ATION; ES T [facility] S5108 [facility] 1 [facility] D AREA D AREA CARE AGENCY AGENCY CLIENT PER 15 MIN HOME CARE S5108 [facility] [employer] HOME D AREA D AREA CARE AGENCY AGENCY CLIENT PER 15 MIN NONEMERGE A0100 [facility] 1 [facility] TRANSPORT ENTERPRIS MANAGEMEN ATION; ES T TAXI NONEMERGE A0100 [facility] 1 TRANS[facility] HEALTH TRANSPORT ENTERPRIS MANAGEMEN ATION; ES T TAXI NONEMERGE A0100 [facility] 1 TRANS[facility] HEALTH TRANSPORT ENTERPRIS MANAGEMEN ATION; [...] CLIENT PER 15 MIN NONEMERGE A0100 [facility] 1 TRANS[facility] HEALTH TRANSPORT ENTERPRIS MANAGEMEN ATION; [...] CLIENT PER 15 MIN NONEMERGE A0100 [facility] 1 [facility] TRANSPORT ENTERPRIS MANAGEMEN ATION; ES T TAXI NONEMERGE A0100 [facility] 1 [facility] TRANSPORT ENTERPRIS MANAGEMEN ATION; ES T [facility] S5108 [facility] 1 [facility] D AREA D AREA CARE AGENCY AGENCY CLIENT PER 15 MIN NONEMERGE A0100 [facility] 1 [facility] TRANSPORT ENTERPRIS MANAGEMEN ATION; ES T TAXI NONEMERGE A0100 [facility] 1 TRANS[facility]ALTH TRANSPORT ENTERPRIS MANAGEMEN ATION; ES T [facility] S5108 [facility] 1 [facility] D AREA D AREA CARE AGENCY AGENCY CLIENT PER 15 MIN NONEMERGE A0100 [facility] 1 [facility] TRANSPORT ENTERPRIS MANAGEMEN ATION; ES T TAXI NONEMERGE A0100 [facility] 0 [facility]ANS[facility]ALTH TRANSPORT ENTERPRIS MANAGEMEN ATION; ES T [facility] S5108 [facility] [address] [facility] YoubooxBERLAN HOME D AREA D AREA CARE AGENCY AGENCY CLIENT PER 15 MIN LIPID 01718 [facility] PANEL 0 O MEDICAL O MEDICAL ASSOC LA ASSOC LA COLLECTIO 94428 [facility] N VENOUS 0 O MEDICAL O MEDICAL BLOOD ASSOC LA ASSOC LA VENIPUNCT URE PROTHROMB [id number] [facility] IN TIME 0 O MEDICAL O MEDICAL ASSOC LA ASSOC LA NONEMERGE A0100 [facility] 0 [facility]SP[facility] ENTERPRIS MANAGEMEN ATION; ES T TAXI NONEMERGE A0100 [facility] 0 [facility] TRANSPORT ENTERPRIS MANAGEMEN ATION; ES T TAXI HOME CARE S5108 [facility] TRA[facility] 0 [facility] [place] [facility] D AREA CARE AGENCY AGENCY CLIENT PER 15 MIN HOME CARE S5108 [facility] TRA[facility] 0 [facility] [place] D AREA D AREA CARE AGENCY AGENCY CLIENT PER 15 MIN HOME CARE S5108 [facility] TRA[facility]ING 0 [facility] AREA D AREA CARE AGENCY AGENCY CLIENT PER 15 MIN NONEMERGE A0100 [facility] NCY 0 [facility] TRANSPORT ENTERPRIS MANAGEMEN ATION; ES T TAXI NONEMERGE A0100 [facility] 0 [facility] TRANSPORT ENTERPRIS MANAGEMEN ATION; ES T TAXI NONEMERGE A0100 [facility] 0 [facility] TRANSPORT ENTERPRIS MANAGEMEN ATION; ES T TAXI PROTHROMB 25928 [facility] IN TIME 0 O MEDICAL O [facility] ASS[facility]OC LA BLOOD 13814 [facility] COUNT 0 O MEDICAL O MEDICAL COMPLETE ASSOC LA ASSOC LA AUTO&AUTO DIFRNTL WBC COLLECTIO 06368 [facility] N VENOUS 0 O MEDICAL O MEDICAL BLOOD ASSOC LA ASSOC LA VENIPUNCT URE HEMOGLOBI 15382 [facility] N 0 O MEDICAL O MEDICAL GLYCOSYLA ASSOC LA ASSOC LA DOTTIE A1C COMPREHEN 53706 LONG ALVES SIVE 0 O MEDICAL O MEDICAL METABOLIC ASSOC LA ASSOC LA PANEL NONEMERGE A0100 [facility]Y 0 [facility] TRANSP[facility] ENTERPRIS MANAGEMEN ATION; ES T [facility] HOME CARE S5108 [facility] 0 [facility] D AREA D AREA CARE AGENCY AGENCY CLIENT PER 15 MIN NONEMERGE A0100 [facility]Y 0 [facility] TRANSPORT ENTERPRIS MANAGEMEN ATION; ES T [facility] HOME CARE S5108 [facility] 0 [facility] D AREA D AREA CARE AGENCY AGENCY CLIENT PER 15 MIN NONEMERGE A0100 [facility] NCY 0 [facility] TRANSPORT ENTERPRIS MANAGEMEN ATION; ES T TAXI NONEMERGE A0100 [facility] 0 [facility] TRANSPORT ENTERPRIS MANAGEMEN ATION; ES T TAXI NONEMERGE A0100 [facility] NCY 0 [facility] TRANSPORT ENTERPRIS MANAGEMEN ATION; ES T TAXI NONEMERGE A0100 [facility] NCY 0 [facility] TRANSPORT ENTERPRIS MANAGEMEN ATION; ES T TAXI NONEMERGE A0100 [facility] 0 [facility] TRANSPORT ENTERPRIS MANAGEMEN ATION; ES T [facility] HOME CARE S5108 [facility] 0 [facility] D AREA D AREA CARE AGENCY AGENCY CLIENT PER 15 MIN NONEMERGE A0100 [facility] NC[facility] 0 [facility] TRANSPORT ENTERPRIS MANAGEMEN ATION; ES T TAXI NONEMERGE A0100 [facility] 0 [facility] TRANSPORT ENTERPRIS MANAGEMEN ATION; ES T [facility] HOME CARE S5108 [facility] 0 [facility] D AREA D AREA CARE AGENCY AGENCY CLIENT PER 15 MIN NONEMERGE A0100 [facility] NC[facility] 0 [facility] TRANSPORT ENTERPRIS MANAGEMEN ATION; ES T TAXI NONEMERGE A0100 [facility] 0 [facility] TRANSPORT ENTERPRIS MANAGEMEN ATION; ES T [facility] HOME CARE S5108 [facility] 0 [facility] D AREA D AREA CARE AGENCY AGENCY CLIENT PER 15 MIN NONEMERGE A0100 [facility] NCY 0 [facility] TRANSPORT ENTERPRIS MANAGEMEN ATION; ES T TAXI NONEMERGE A0100 [facility] NC[facility] 0 [facility] TRANSPORT ENTERPRIS MANAGEMEN ATION; ES T [facility] HOME CARE S5108 [facility] 0 [facility] ARE[facility] D AREA CARE AGENCY AGENCY CLIENT PER 15 MIN HOME CARE S5108 [facility] 0 [facility] ARE[facility] D AREA CARE AGENCY AGENCY CLIENT PER 15 MIN HOME CARE S5108 [facility] 0 [facility] ARE[facility] D AREA CARE AGENCY AGENCY CLIENT PER 15 MIN HOME CARE S5108 [facility] 0 [facility] AREA D AREA CARE AGENCY AGENCY CLIENT PER 15 MIN NONEMERGE A0100 [facility] NCY 0 [facility] TRANSPORT ENTERPRIS MANAGEMEN ATION; ES T TAXI NONEMERGE A0100 [facility] NC[facility] 0 [facility] TRANSPORT ENTERPRIS MANAGEMEN ATION; ES T [facility] HOME CARE S5108 [facility] 0 [facility] D AREA D AREA CARE AGENCY AGENCY CLIENT PER 15 MIN DISPBL [id number] PERSONAL PERSONAL LINER/JARED 0 TOUCH TOUCH ELD/GUARD HOME LONGTERM CARE /PAD/UNDG OF OF RMNT INCONT EA INCONTINE T4541 PERSONAL PERSONAL NCE 0 TOUCH TOUCH PRODUCT HOME LONGTERM CARE DISPOSABL OF OF E UNDPAD LARGE EA NONEMERGE A0100 [facility] NCY 0 [facility] TRANSPORT ENTERPRIS MANAGEMEN ATION; ES T TAXI NONEMERGE A0100 [facility] NCY 0 [facility] TRANSPORT ENTERPRIS MANAGEMEN ATION; ES T T[facility]I HOME CARE S5108 [facility] 0 [facility]A D AREA CARE AGENCY AGENCY CLIENT PER 15 MIN HOME CARE S5108 [facility] 0 [facility] D AREA D AREA CARE AGENCY AGENCY CLIENT PER 15 MIN NONEMERGE A0100 [facility] NCY 0 [facility] TRANSPORT ENTERPRIS MANAGEMEN ATION; ES T TAXI NONEMERGE A0100 [facility] NCY 0 [facility] TRANSPORT ENTERPRIS MANAGEMEN ATION; ES T TAXI NONEMERGE A0100 [facility] NCY 0 [facility] TRANSPORT ENTERPRIS MANAGEMEN ATION; ES T [facility] HOME CARE S5108 [facility] TRA[facility] 0 [facility] D AREA D AREA CARE AGENCY AGENCY CLIENT PER 15 MIN HOSPITAL 10303 [facility] DISCHARGE 0 D [facility] MANAGEMEN PHYSICIA T 30 MIN/< CV STRS 57013 BARB DAY TST 0 PAT PAT XERS&/OR RX CONT ECG W/O I&R SBSQ 75463 [facility] 0 D [facility] 25 PHYSICIA MINUTES OBSERVATI 75556 [facility] JESSFEMOISES ON/INPATI 0 [facility] S CARE 55 MINUTES GROUND A0425 [facility] MILEAGE 0 EMS EMS PER STATUTE MILE BASIC 57113 [facility] METABOLIC 0 HOSP INC HOSP INC PANEL CALCIUM TOTAL NONINVASI 35336 [facility] VE 0 HOSP [facility] HOSP INC EAR/PULSE OXIMETRY SINGLE DETER DUPLEX 69724 ISLIP TERRACE JENNIFER SCAN 0 IMAGING & EXTRACRAN IAL ART INTERVENT COMPL BI I STUDY BLOOD 20285 [facility] BALJIT CO COUNT 0 HOSP INC HOSP INC COMPLETE AUTO&AUTO DIFRNTL WBC PROTHROMB 37422 [facility] IN TIME 0 HOSP INC HOSP INC CREATINE 68631 [facility] KINASE 0 HOSP [facility] HOSP INC TOTAL INITIAL 15879 [facility] 0 D [facility] 70 PHYSICIA MINUTES COLLECTIO 94247 [facility] N VENOUS 0 HOSP INC [place] [address] [facility] THYROID 0 HOSP INC HOSP [place] [address] [facility] TROPONIN 0 HOSP INC HOSP INC QUANTITAT TIKA CREATINE 94092 [facility] KINASE MB 0 HOSP INC HOSP INC FRACTION ONLY AMB A0427 [facility] SERVICE 0 EMS EMS [place] [address] [facility] HEAD/BRAI 0 HOSP INC HOSP INC N W/O CONTRAST MATERIAL THROMBOPL 89283 [facility] ASTIN 0 HOSP INC HOSP INC TIME PARTIAL PLASMA/WH OLE BLOOD NONEMERGE A0100 [facility] 0 [facility]SP[facility] ENTERPRIS MANAGEMEN ATION; ES T TAXI CREATINE 02585 [facility] KINASE MB 0 HOSP [place] [address] [facility] TROPONIN 0 HOSP INC HOSP INC QUANTITAT TIKA COLLECTIO 42179 [facility] N VENOUS 0 HOSP INC HOSP INC BLOOD VENIPUNCT URE CREATINE 62347 [facility] KINASE 0 HOSP INC HOSP INC TOTAL THER 37736 [facility] PROPH/DX 0 HOSP INC HOSP INC NJX IV PUSH SINGLE/1S T SBST/DRUG PROTHROMB 79331 [facility] IN TIME 0 HOSP INC HOSP INC BLOOD 17696 [facility] COUNT 0 HOSP INC HOSP INC COMPLETE AUTO&AUTO DIFRNTL WBC ECG 10654 [facility] ROUTINE 0 HOSP INC HOSP INC ECG W/LEAST 12 LDS TRCG ONLY W/O I&R NONINVASI 78500 [facility] VE 0 HOSP INC HOSP INC EAR/PULSE OXIMETRY SINGLE DETER ECG 44695 [facility] ROUTINE 0 COVERAGE ECG W/LEAST CORPORATI 12 LDS I&R ONLY ECHO 85602 [facility] TTHRC R-T 0 HOSP INC HOSP INC 2D W/WOM-MOD E COMPL SPEC&COLR D COMPREHEN 46721 [facility] SIVE 0 HOSP INC HOSP INC METABOLIC PANEL RADIOLOGI 75582 [facility] C EXAM 0 HOSP INC HOSP INC CHEST 2 VIEWS FRONTAL&L ATERAL CRITICAL 20300 [facility] CARE 0 COVERAGE ILL/INJUR ED CORPORATI PATIENT INIT 30-74 MIN NONEMERGE A0100 [facility] 0 [facility] TRANSPORT ENTERPRIS MANAGEMEN ATION; ES T [facility] HOME CARE S5108 [facility] 0 [facility] D AREA D AREA CARE AGENCY AGENCY CLIENT PER 15 MIN NONEMERGE A0100 [facility] NC[facility] 0 [facility] TRANSPORT ENTERPRIS MANAGEMEN ATION; ES T TAXI NONEMERGE A0100 [facility] NCY 0 [facility] TRANSPORT ENTERPRIS MANAGEMEN ATION; ES T TAXI HOME CARE S5108 [facility] 0 [facility] D AREA D AREA CARE AGENCY AGENCY CLIENT PER 15 MIN HOME CARE S5108 [facility] 0 [facility] D AREA D AREA CARE AGENCY AGENCY CLIENT PER 15 MIN NONEMERGE A0100 [facility] NCY 0 [facility] TRANSPORT ENTERPRIS MANAGEMEN ATION; ES T TAXI NONEMERGE A0100 [facility] NCY 0 [facility] TRANSPORT ENTERPRIS MANAGEMEN ATION; ES T TAXI NONEMERGE A0100 [facility] 0 [facility] TRANSPORT ENTERPRIS MANAGEMEN [...] CLIENT PER 15 MIN NONEMERGE A0100 [facility] NC[facility] 0 [facility] TRANSPORT ENTERPRIS MANAGEMEN ATION; ES T TAXI NONEMERGE A0100 [facility] NC[facility] 0 [facility] TRANSPORT ENTERPRIS MANAGEMEN ATION; ES T TAXI NONEMERGE A0100 [facility] NC[facility] 0 [facility] TRANSPORT ENTERPRIS MANAGEMEN ATION; ES T T[facility]I HOME CARE S5108 [facility] 0 [facility] AREA D AREA CARE AGENCY AGENCY CLIENT PER 15 MIN PROTHROMB 30846 [facility] IN TIME 0 O MEDICAL O MEDICAL ASSOC LA ASSOC LA NONEMERGE A0100 [facility] NCY 0 [facility] TRANSPORT ENTERPRIS MANAGEMEN ATION; ES T TAXI HOME CARE S5108 [facility] 0 [facility] [place] D AREA D AREA CARE AGENCY AGENCY CLIENT PER 15 MIN NONEMERGE A0100 [facility] NCY 0 [facility] TRANSPORT ENTERPRIS MANAGEMEN ATION; ES T TAXI NONEMERGE A0100 [facility] NCY 0 [facility] TRANSPORT ENTERPRIS MANAGEMEN ATION; ES T TAXI HOME CARE S5108 [facility] TRA[facility] 0 [facility] AREA D AREA CARE AGENCY AGENCY CLIENT PER 15 MIN NONEMERGE A0100 [facility] NCY 0 [facility] TRANSPORT ENTERPRIS MANAGEMEN ATION; ES T TAXI NONEMERGE A0100 [facility] NC[facility] 0 [facility] TRANSPORT ENTERPRIS MANAGEMEN ATION; ES T TAXI HOME CARE S5108 [facility] 0 [facility] [place] D AREA D AREA CARE AGENCY AGENCY CLIENT PER 15 MIN HOME CARE S5108 [facility] AREA D AREA CARE AGENCY AGENCY CLIENT PER 15 MIN NONEMERGE A0100 [facility] NCY 0 [facility] TRANSPORT ENTERPRIS MANAGEMEN ATION; ES T TAXI NONEMERGE A0100 [facility] NCY 0 [facility] TRANSPORT ENTERPRIS MANAGEMEN ATION; ES T TAXI HOME CARE S5108 [facility] 0 [facility] AREA D AREA CARE AGENCY AGENCY CLIENT PER 15 MIN NONEMERGE A0100 [facility] NCY 0 [facility] TRANSPORT ENTERPRIS MANAGEMEN ATION; ES T TAXI NONEMERGE A0100 [facility] NC[facility] 0 [facility] TRANSPORT ENTERPRIS MANAGEMEN ATION; ES T TAXI HOME CARE S5108 [facility] 0 [facility] D AREA D AREA CARE AGENCY AGENCY CLIENT PER 15 MIN NONEMERGE A0100 [facility] NCY 0 [facility] TRANSPORT ENTERPRIS MANAGEMEN ATION; ES T TAXI NONEMERGE A0100 [facility] NC[facility] 0 [facility] TRANSPORT ENTERPRIS MANAGEMEN ATION; ES T TAXI HOME CARE S5108 [facility] 0 [facility] D AREA D AREA CARE AGENCY AGENCY CLIENT PER 15 MIN NONEMERGE A0100 [facility] NCY 0 [facility] TRANSPORT ENTERPRIS MANAGEMEN ATION; ES T TAXI NONEMERGE A0100 [facility] 0 [facility] TRANSPORT ENTERPRIS MANAGEMEN ATION; ES T TAXI HOME CARE S5108 [facility] 0 [facility] D AREA D AREA CARE AGENCY AGENCY CLIENT PER 15 MIN NONEMERGE A0100 [facility] NC[facility] 0 [facility] TRANSPORT ENTERPRIS MANAGEMEN ATION; ES T TAXI NONEMERGE A0100 [facility] NC[facility] 0 [facility] TRANSPORT ENTERPRIS MANAGEMEN ATION; ES T TAXI NONEMERGE A0100 [facility] NC[facility] 0 [facility] TRANSPORT ENTERPRIS MANAGEMEN ATION; ES T [facility]I HOME CARE S5108 [facility] 0 [facility] AREA D AREA CARE AGENCY AGENCY CLIENT PER 15 MIN NONEMERGE A0100 [facility] NC[facility] 0 [facility] TRANSPORT ENTERPRIS MANAGEMEN ATION; ES T TAXI NONEMERGE A0100 [facility] NC[facility] 0 [facility] TRANSPORT ENTERPRIS MANAGEMEN ATION; ES T T[facility]I HOME CARE S5108 [facility] 0 [facility] AREA D AREA CARE AGENCY AGENCY CLIENT PER 15 MIN HOME CARE S5108 [facility] 0 [facility] D AREA D AREA CARE AGENCY AGENCY CLIENT PER 15 MIN NONEMERGE A0100 [facility] NCY 0 [facility] TRANSPORT ENTERPRIS MANAGEMEN ATION; ES T TAXI HOME CARE S5108 [facility] 0 [facility]A D AREA CARE AGENCY AGENCY CLIENT PER 15 MIN NONEMERGE A0100 [facility] 0 [facility] TRANSPORT ENTERPRIS MANAGEMEN ATION; ES T TAXI APPL 05177 [facility] CARMINE MODALITY 0 O PT SERV 1/> AREAS ULTRASOUN D EA 15 MIN PHYSICAL 03896 [facility] THERAPY 0 O PT SERV EVALUATIO N THERAPEUT 50281 [facility] IC PX 1/> 0 O PT SERV AREAS EACH 15 MIN EXERCISES APPL 76865 [facility] MODALITY 0 O PT SERV 1/> AREAS TRACTION MECHANICA L PROTHROMB 71114 [facility] IN TIME 0 O MEDICAL O MEDICAL ASSOC LA ASSOC LA NONEMERGE A0100 [facility] NCY 0 [facility] TRANSPORT ENTERPRIS MANAGEMEN ATION; ES T TAXI HOME CARE S5108 [facility] 0 [facility] D AREA CARE AGENCY AGENCY CLIENT PER 15 MIN THROMBOPL 23417 [facility] ASTIN 0 HOSP INC HOSP INC TIME PARTIAL PLASMA/WH OLE BLOOD PROTHROMB 48351 [facility] IN TIME 0 HOSP INC HOSP INC CREATINE 99047 [facility] KINASE 0 HOSP INC HOSP INC TOTAL ECG 73559 [facility] ROUTINE 0 HOSP INC HOSP INC ECG W/LEAST 12 LDS TRCG ONLY W/O I&R BLOOD 82968 [facility] COUNT 0 HOSP INC HOSP INC COMPLETE AUTO&AUTO DIFRNTL WBC COLLECTIO 25078 [facility] N VENOUS 0 HOSP INC [place] [address] [facility] TROPONIN 0 HOSP INC HOSP INC QUANTITAT TIKA CREATINE 84514 [facility] KINASE MB 0 HOSP INC HOSP INC FRACTION ONLY ECG 04233 [facility] ROUTINE 0 COVERAGE ECG W/LEAST CORPORATI 12 LDS I&R ONLY RADIOLOGI 87027 [facility] C EXAM 0 HOSP INC HOSP INC CHEST 2 VIEWS FRONTAL&L ATERAL URNLS DIP 74066 [facility] 0 HOSP INC HOSP INC STICK/TAB LET RGNT AUTO W/O MICROSCOP Y COMPREHEN 10114 [facility] SIVE 0 HOSP INC HOSP INC METABOLIC PANEL AMBULANCE A0429 [facility] SERVICE 0 EMS EMS BLS EMERGENCY TRANSPORT GROUND A0425 [facility] MILEAGE 0 EMS EMS PER STATUTE MILE BLD GLU A4253 [facility] TEST/REAG 0 MEDICAL MEDICAL T STRIPS SUPPLY SUPPLY HOME BLD GLU MON-50 NORMAL A4256 [facility] LOW AND 0 MEDICAL MEDICAL HIGH SUPPLY SUPPLY CALIBRATO R SOLUTION/ CHIPS LANCETS A4259 [facility] PER BOX 0 MEDICAL MEDICAL OF 100 SUPPLY SUPPLY [facility] A4258 [facility] WERED 0 MEDICAL MACHINE WHITENER SUPPLY SUPPLY FOR LANCET EACH NONEMERGE A0100 [facility] 0 [facility]SP[facility] ENTERPRIS MANAGEMEN ATION; ES T TAXI HOME CARE S5108 [facility] 0 [facility] AREA D AREA CARE AGENCY AGENCY CLIENT PER 15 MIN HOME CARE S5108 [facility] 0 [facility] D AREA D AREA CARE AGENCY AGENCY CLIENT PER 15 MIN NONEMERGE A0100 [facility] 0 [facility] TRANSPORT ENTERPRIS MANAGEMEN ATION; ES T TAXI NONEMERGE A0100 [facility] 0 [facility] TRANSPORT ENTERPRIS MANAGEMEN ATION; ES T TAXI NONEMERGE A0100 [facility] 0 [facility] TRANSPORT ENTERPRIS MANAGEMEN ATION; ES T [facility]I HOME CARE S5108 [facility] 0 [facility] AREA D AREA CARE AGENCY AGENCY CLIENT PER 15 MIN HOME CARE S5108 [facility] 0 [facility] D AREA D AREA CARE AGENCY AGENCY CLIENT PER 15 MIN NONEMERGE A0100 [facility] 0 [facility] TRANSPORT ENTERPRIS MANAGEMEN ATION; ES T TAXI NONEMERGE A0100 [facility] 0 [facility] TRANSPORT ENTERPRIS MANAGEMEN ATION; ES T TAXI NONEMERGE A0100 [facility] 0 [facility] TRANSPORT ENTERPRIS MANAGEMEN ATION; ES T TAXI NONEMERGE A0100 [facility] 0 [facility] TRANSPORT ENTERPRIS MANAGEMEN ATION; ES T TAXI HOME CARE S5108 [facility] 0 [facility] D AREA CARE AGENCY AGENCY CLIENT PER 15 MIN HOME CARE S5108 [facility] 0 [facility] AREA D AREA CARE AGENCY AGENCY CLIENT PER 15 MIN NONEMERGE A0100 [facility] 0 [facility] TRANSPORT ENTERPRIS MANAGEMEN ATION; ES T TAXI NONEMERGE A0100 [facility] 0 [facility] TRANSPORT ENTERPRIS MANAGEMEN ATION; ES T T[facility]I HOME CARE S5108 [facility] 0 [facility] D AREA CARE AGENCY AGENCY CLIENT PER 15 MIN NONEMERGE A0100 [facility] 0 [facility] TRANSPORT ENTERPRIS MANAGEMEN [...] AGING PER 15 MIN NONEMERGE A0100 [facility] 0 [facility] TRANSPORT ENTERPRIS MANAGEMEN ATION; ES T TAXI NONEMERGE A0100 [facility] 0 [facility] TRANSPORT ENTERPRIS MANAGEMEN ATION; ES T TAXI NONEMERGE A0100 [facility] 0 [facility] TRANSPORT ENTERPRIS MANAGEMEN [...] AGING PER 15 MIN NONEMERGE A0100 [facility] 0 [facility] TRANSPORT ENTERPRIS MANAGEMEN ATION; ES T TAXI NONEMERGE A0100 [facility] 0 [facility] TRANSPORT ENTERPRIS MANAGEMEN ATION; ES T TAXI HOME CARE S5108 [facility] [address] [facility] AGENCY ON AGENCY ON CLIENT AGING AGING PER 15 MIN NONEMERGE A0100 [facility] 0 [facility] TRANSPORT ENTERPRIS MANAGEMEN ATION; ES T TAXI HOME CARE S5108 [facility] [address] [facility] AGENCY ON AGENCY ON CLIENT AGING AGING PER 15 MIN NONEMERGE A0100 [facility] 0 [facility] TRANSPORT ENTERPRIS MANAGEMEN ATION; ES T TAXI COLLECTIO 11642 [facility] N VENOUS 0 O MEDICAL O MEDICAL BLOOD ASSOC LA ASSOC LA VENIPUNCT URE HEMOGLOBI 18887 [facility] N 0 O MEDICAL O MEDICAL GLYCOSYLA ASSOC LA ASSOC LA DOTTIE A1C BLOOD 43959 [facility] COUNT 0 O MEDICAL O MEDICAL COMPLETE ASSOC LA ASSOC LA AUTO&AUTO DIFRNTL WBC PROTHROMB 41708 [facility] IN TIME 0 O MEDICAL O MEDICAL ASSOC LA ASSOC LA COMPREHEN 08662 [facility] SIVE 0 O MEDICAL O MEDICAL METABOLIC ASSOC LA ASSOC LA PANEL NONEMERGE A0100 [facility] 0 [facility] TRANSPORT ENTERPRIS MANAGEMEN ATION; ES T [facility] HOME C[facility] S5108 [facility] [address] [facility] AGENCY ON AGENCY ON CLIENT AGING AGING PER 15 MIN NONEMERGE A0100 [facility] 0 [facility] TRANSPORT ENTERPRIS MANAGEMEN ATION; ES T TAXI WALKER E0143 [facility] 0 DRUG #1 DRUG #1 WHEELED ADJUSTABL E/FIXED HEIGHT SEAT E0156 [facility] 0 DRUG #1 DRUG #1 T WALKER NONEMERGE A0100 [facility] 0 [facility] TRANSP[facility] ENTERPRIS MANAGEMEN ATION; ES T [facility] HOME CARE S5108 [facility] 0 [facility] CARE AGENCY ON AGENCY ON CLIENT AGING AGING PER 15 MIN NONEMERGE A0100 [facility] 0 [facility] TRANSPORT ENTERPRIS MANAGEMEN ATION; ES T TAXI MISC TX T1999 [facility] & 0 [facility] D AREA D AREA RETAIL AGENCY ON AGENCY ON PURCHASE AGING AGING NOC NONEMERGE A0100 [facility] 0 [facility] TRANSPORT ENTERPRIS MANAGEMEN ATION; ES T TAXI NONEMERGE A0100 [facility] 0 [facility] TRANSPORT ENTERPRIS MANAGEMEN ATION; ES T [facility] HOME C[facility] S5108 [facility] 0 [facility] D AREA CARE AGENCY ON AGENCY ON CLIENT AGING AGING PER 15 MIN NONEMERGE A0100 [facility] 0 [facility] TRANSPORT ENTERPRIS MANAGEMEN ATION; ES T [facility]I NONEMERGE A0100 [facility] 0 [facility] TRANSPORT ENTERPRIS MANAGEMEN ATION; ES T [facility] S5108 [facility] TRAIN[facility] 0 [facility] D AREA CARE AGENCY ON AGENCY ON CLIENT AGING AGING PER 15 MIN NONEMERGE A0100 [facility] 0 [facility] TRANSPORT ENTERPRIS MANAGEMEN [...] AGING PER 15 MIN NONEMERGE A0100 [facility] 0 [facility] TRANSPORT ENTERPRIS MANAGEMEN ATION; ES T TAXI NONEMERGE A0100 [facility] 0 [facility] TRANSPORT ENTERPRIS MANAGEMEN ATION; ES T TAXI NONEMERGE A0100 [facility] 0 [facility] TRANSPORT ENTERPRIS MANAGEMEN ATION; ES T [facility] S5108 [facility] TRAIN[facility] 0 [facility] D [facility]A D AREA CARE AGENCY ON AGENCY ON CLIENT AGING AGING PER 15 MIN NONEMERGE A0100 [facility] 0 [facility] TRANSPORT ENTERPRIS MANAGEMEN ATION; ES T TAXI NONEMERGE A0100 [facility] 0 [facility] TRANSPORT ENTERPRIS MANAGEMEN ATION; ES T TAXI NONEMERGE A0100 [facility] 0 [facility] TRANSPORT ENTERPRIS MANAGEMEN ATION; ES T [facility] S5108 [facility] 0 [facility] D AREA D AREA CARE AGENCY ON AGENCY ON CLIENT AGING AGING PER 15 MIN NONEMERGE A0100 [facility] 0 [facility] TRANSPORT ENTERPRIS MANAGEMEN ATION; ES T TAXI NONEMERGE A0100 [facility] 0 [facility] TRANSPORT ENTERPRIS MANAGEMEN [...] CLIENT AGING AGING PER 15 MIN PROTHROMB [id number] [facility] IN TIME 0 [facility] H[facility] NONEMERGE A0100 [facility] 0 [facility] TRANSPORT ENTERPRIS MANAGEMEN ATION; ES T TAXI THROMBOPL 21997 [facility] ASTIN 0 [facility] INC HOSP INC TIME PARTIAL PLASMA/WH OLE BLOOD RADIOLOGI 11314 [facility] C 0 IMAGING & PAUL EXAMINATI ON CHEST INTERVENT SINGLE I VIEW FRONTAL AMB [id number] [facility] SERVICE 0 EMS EMS ALS EMERGENCY TRANSPORT LEVEL 1 CREATINE 99246 [facility] MB 0 [facility] [place] [address] [facility] [place] [facility]OPONIN 0 [facility] HOSP INC QUANTITAT TIKA COLLECTIO 20634 [facility] N VENOUS 0 HOSP INC [facility] BLOOD VENIPUNCT URE CREATINE 27548 [facility] KINASE 0 HOSP INC HOSP INC TOTAL BLOOD 32159 [facility] COUNT 0 HOSP INC HOSP INC COMPLETE AUTO&AUTO DIFRNTL WBC ECG 53741 [facility] ROUTINE 0 HOSP INC HOSP INC ECG W/LEAST 12 LDS TRCG ONLY W/O I&R NONINVASI 59136 [facility] VE 0 HOSP INC HOSP INC EAR/PULSE OXIMETRY SINGLE DETER COMPREHEN 60084 [facility] SIVE 0 HOSP [facility] HOSP INC METABOLIC PANEL GROUND A0425 [facility] MILEAGE 0 EMS EMS PER STATUTE MILE NONEMERGE A0100 [facility] 0 [facility] TRANSPORT ENTERPRIS MANAGEMEN ATION; ES T [facility] RADIOLOGI 04025 [facility] C EXAM 0 HOSP [facility] H[facility] INC KNEE COMPLETE 4/MORE VIEWS NONINVASI 58036 [facility] VE 0 HOSP INC HOSP INC EAR/PULSE OXIMETRY SINGLE DETER RADIOLOGI 60423 [facility] C 0 IMAGING & PAUL EXAMINATI ON KNEE INTERVENT 1/2 VIEWS I NONEMERGE A0100 [facility] 0 [facility] TRANSPORT ENTERPRIS MANAGEMEN [...] AGING PER 15 MIN NONEMERGE A0100 [facility] 0 [facility] TRANSPORT ENTERPRIS MANAGEMEN ATION; ES T [facility] S5108 [facility] TRAINING 0 [facility] AREA CARE AGENCY ON AGENCY ON CLIENT AGING AGING PER 15 MIN NONEMERGE A0100 [facility] NCY 0 [facility] TRANSPORT ENTERPRIS MANAGEMEN ATION; ES T TAXI NONEMERGE A0100 [facility] NCY 0 [facility] TRANSPORT ENTERPRIS MANAGEMEN ATION; ES T TAXI HOME CARE S5108 [facility] AGENCY ON AGENCY ON CLIENT AGING AGING PER 15 MIN NONEMERGE A0100 [facility] NCY 0 [facility] TRANSPORT ENTERPRIS MANAGEMEN ATION; ES T [facility]I HOME CARE S5108 [facility] WILL[facility] [place] [facility] D AREA CARE AGENCY ON AGENCY ON CLIENT AGING AGING PER 15 MIN NONEMERGE A0100 [facility] NCY 0 [facility] TRANSPORT ENTERPRIS MANAGEMEN ATION; ES T TAXI NONEMERGE A0100 [facility] NCY 0 [facility] TRANSPORT ENTERPRIS MANAGEMEN ATION; ES T T[facility]I HOME CARE S5108 [facility] TRA[facility]ING 0 [facility]ARE AGENCY ON AGENCY ON CLIENT AGING AGING PER 15 MIN NONEMERGE A0100 [facility] NCY 0 [facility] TRANSPORT ENTERPRIS MANAGEMEN ATION; ES T T[facility]I HOME CARE S5108 [facility] TRAINING 0 [facility] [place] D [facility]A D AREA CARE AGENCY ON AGENCY ON CLIENT AGING AGING PER 15 MIN NONEMERGE A0100 [facility] NCY 0 [facility] TRANSPORT ENTERPRIS MANAGEMEN ATION; ES T TAXI NONEMERGE A0100 [facility] NCY 0 [facility] TRANSPORT ENTERPRIS MANAGEMEN ATION; ES T TAXI HOME CARE S5108 [facility] TRAINING 0 [facility] [place] [facility]A D AREA CARE AGENCY ON AGENCY ON CLIENT AGING AGING PER 15 MIN NONEMERGE A0100 [facility] NCY 0 [facility] TRANSPORT ENTERPRIS MANAGEMEN ATION; ES T TAXI NONEMERGE A0100 [facility] NCY 0 [facility] TRANSPORT ENTERPRIS MANAGEMEN ATION; ES T [facility] CARE S5108 [facility] WILLAMS TRAINING 0 [facility] CARE AGENCY ON AGENCY ON CLIENT AGING AGING PER 15 MIN NORMAL A4256 [facility]ERTY LOW AND 0 MEDICAL MEDICAL HIGH SUPPLY SUPPLY CALIBRATO R SOLUTION/ CHIPS BLD GLU A4253 LIBERTY LIBERTY TEST/REAG 0 MEDICAL MEDICAL T STRIPS SUPPLY SUPPLY HOME BLD GLU MON-50 LANCETS A4259 LIBERTY LIBERTY PER BOX 0 MEDICAL MEDICAL OF 100 SUPPLY SUPPLY NONEMERGE A0100 [facility] NCY 0 [facility] TRANSPORT ENTERPRIS MANAGEMEN ATION; ES T [facility]I HOME CARE S5108 WILLAMS WILLAMS TRAINING 0 [facility] D AREA D AREA CARE AGENCY ON AGENCY ON CLIENT AGING AGING PER 15 MIN NONEMERGE A0100 [facility] NCY 0 [facility] TRANSPORT ENTERPRIS MANAGEMEN ATION; ES T TAXI NONEMERGE A0100 [facility] NCY 0 [facility] TRANSPORT ENTERPRIS MANAGEMEN ATION; ES T [facility]I HOME CARE S5108 WILLAMS WILLAMS TRAINING 0 [facility] D AREA D AREA CARE AGENCY ON AGENCY ON CLIENT AGING AGING PER 15 MIN HOME CARE S5108 WILLAMS WILLAMS TRAINING 0 [facility] D AREA D AREA CARE AGENCY ON AGENCY ON CLIENT AGING AGING PER 15 MIN NONEMERGE A0100 [facility] NCY 0 [facility] TRANSPORT ENTERPRIS MANAGEMEN ATION; ES T TAXI NONEMERGE A0100 [facility] NCY 0 [facility] TRANSPORT ENTERPRIS MANAGEMEN ATION; ES T [facility] HOME CARE S5108 WILLAMS WILLAMS TRAINING 0 [facility] D AREA CARE AGENCY ON AGENCY ON CLIENT AGING AGING PER 15 MIN NONEMERGE A0100 [facility] NCY 0 [facility] TRANSPORT ENTERPRIS MANAGEMEN ATION; ES T TAXI NONEMERGE A0100 [facility] NCY 0 [facility] TRANSPORT ENTERPRIS MANAGEMEN ATION; ES T [facility]I HOME CARE S5108 WILLAMS WILLAMS TRAINING 0 [facility] D [facility]A D AREA CARE AGENCY ON AGENCY ON CLIENT AGING AGING PER 15 MIN HOME CARE S5108 WILLAMS WILLAMS TRAINING 0 [facility] D AREA D AREA CARE AGENCY ON AGENCY ON CLIENT AGING AGING PER 15 MIN PROTHROMB 07009 [facility] O 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 A0100 [facility] NCY 0 [facility] TRANSPORT ENTERPRIS MANAGEMEN ATION; ES T TAXI COMPREHEN 91539 LONG [facility] SIVE 0 O MEDICAL 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 Y Y RADIOLOGI 78219 RIMMAJayson SPARKS EXAM 0 IMAGING & MARYAM L CHEST 2 VIEWS INTERVENT FRONTAL&L ION PLLC ATERAL ECG 88015 JARRODITZEL ANGELINA, ROUTINE 0 O MEDICAL YANIRE ECG W/LEAST ASSOCIATE 12 LDS S TRCG ONLY W/O I&R BLOOD 99754 LONG ALVES COUNT 0 O MEDICAL O MEDICAL COMPLETE ASSOC 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 DIFRNTL Y Y WBC COLLECTIO 38772 LONG AL[facility]ES N VENOUS 0 O MEDICAL O MEDICAL BLOOD ASSOC ASSOC 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 URE Y Y NONEMERGE A0100 [facility] NCY 0 [facility] TRANSPORT ENTERPRIS MANAGEMEN ATION; ES T T[facility]I HOME CARE S5108 [facility] WILLAMS [facility] HOME AREA D AREA CARE AGENCY ON AGENCY ON CLIENT AGING AGING PER 15 MIN HOME CARE S5108 WILLAMS WILLAMS TRAINING 0 [facility] D AREA CARE AGENCY ON AGENCY ON CLIENT AGING AGING PER 15 MIN NONEMERGE A0100 [facility] NCY 0 [facility] TRANSPORT ENTERPRIS MANAGEMEN ATION; ES T TAXI NONEMERGE A0100 [facility] NCY 0 [facility] TRANSPORT ENTERPRIS MANAGEMEN ATION; ES T TAXI PROTHROMB 32287 LONG ALVES IN TIME 0 O MEDICAL O 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 RADIOLOGI 88992 RIMMAJANA OLVERA C EXAM 0 IMAGING & HEAVEN B CHEST 2 VIEWS INTERVENT FRONTAL&L ION PLLC ATERAL NONEMERGE A0100 [facility] NCY 0 [facility] TRANSPORT ENTERPRIS MANAGEMEN ATION; ES T TAXI NONEMERGE A0100 [facility] NCY 0 [facility] TRANSPORT ENTERPRIS MANAGEMEN ATION; ES T T[facility]I HOME CARE S5108 WILLAMS WILLAMS TRAINING 0 [facility]ARE AGENCY ON AGENCY ON CLIENT AGING AGING PER 15 MIN NONEMERGE A0100 [facility] ARM[facility]IAN NCY 0 [facility] TRANSPORT ENTERPRIS MANAGEMEN ATION; ES T TAXI NONEMERGE A0100 [facility] NCY 0 [facility] TRANSPORT ENTERPRIS MANAGEMEN ATION; ES T T[facility]I HOME CARE S5108 WILLAMS WILLAMS TRAINING 0 [facility] D AREA CARE AGENCY ON AGENCY ON CLIENT AGING AGING PER 15 MIN NONEMERGE A0100 [facility] ARM[facility]IAN NCY 0 [facility] TRANSPORT ENTERPRIS MANAGEMEN ATION; ES T TAXI NONEMERGE A0100 [facility] NCY 0 [facility] TRANSPORT ENTERPRIS MANAGEMEN ATION; ES T TAXI NONEMERGE A0100 [facility] NCY 0 [facility] TRANSPORT ENTERPRIS MANAGEMEN ATION; ES T TAXI HOME CARE S5108 WILLAMS WILLAMS TRAINING 0 [facility]A D AREA CARE AGENCY ON AGENCY ON CLIENT AGING AGING PER 15 MIN NONEMERGE A0100 [facility] NCY 0 [facility] TRANSPORT ENTERPRIS MANAGEMEN ATION; ES T TAXI NONEMERGE A0100 [facility] NCY 0 [facility] TRANSPORT ENTERPRIS MANAGEMEN [...] CLIENT AGING AGING PER 15 MIN DEBRIDEME 11367 MILADYS HOOK, ABHAY NAIL 0 NATHALIE CRUZ [...] CLIENT AGING AGING PER 15 MIN PROTHROMB 35534 [facility] 0 O MEDICAL O 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 CREATININ 92083 LAB GALA LAB GALA E OTHER 0 AMERIC 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 COLLECTIO 85566 [facility] N VENOUS 0 O MEDICAL O MEDICAL BLOOD ASSOC ASSOC 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 URE Y Y HEMOGLOBI 92163 [facility] N 0 O MEDICAL O MEDICAL GLYCOSYLA ASSOC ASSOC DOTTIE A1C 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 Y Y BLOOD 41717 [facility] COUNT 0 O MEDICAL O MEDICAL COMPLETE ASSOC 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 DIFRNTL Y Y WBC ALBUMIN 35057 LAB GALA LAB GALA URINE 0 AMERIC AMERIC MICROALBU HOLDING HOLDING MIN QUANTIATI VE COMPREHEN 59857 [facility] SIVE 0 O MEDICAL 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 Y Y LIPID 38778 [facility] PANEL 0 O MEDICAL O 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 HOME CARE S5108 [facility] TRAINING 0 [facility] D AREA D AREA CARE AGENCY ON AGENCY ON CLIENT AGING AGING PER 15 MIN HOME CARE S5108 [facility] TRAINING 0 [facility] AREA CARE AGENCY ON AGENCY ON CLIENT AGING AGING PER 15 MIN BLD GLU A4253 LIBERTY LIBERTY TEST/REAG 0 MEDICAL MEDICAL T STRIPS SUPPLY SUPPLY HOME BLD GLU MON-50 NORMAL A4256 LIBERTY LIBERTY LOW AND 0 MEDICAL MEDICAL HIGH SUPPLY SUPPLY CALIBRATO R SOLUTION/ CHIPS LANCETS A4259 LIBERTY LIBERTY PER BOX 0 MEDICAL MEDICAL OF 100 SUPPLY SUPPLY [facility] A4258 LIBERTY LIBERTY WERED 0 MEDICAL MACHINE WHITENER SUPPLY SUPPLY FOR LANCET EACH HOME CARE S5108 WILLAMS WILLAMS TRAINING 0 [facility] AREA AREA CARE AGENCY ON AGENCY ON CLIENT AGING AGING PER 15 MIN HOME CARE S5108 WILLAMS WILLAMS TRAINING 0 [facility] D AREA D AREA CARE AGENCY ON AGENCY ON CLIENT AGING AGING PER 15 MIN HOME CARE S5108 WILLAMS WILLAMS TRAINING 0 [place] [place] D AREA AREA [facility] AGENCY ON AGENCY ON CLIENT AGING AGING PER 15 MIN DIAB ONLY A5500 [facility] FIT CSTM 0 D FOOT D FOOT PREP&SPL AND ANKLE AND ANKLE SHOE MX DNSITY INSRT FOR DIAB A5513 [facility] ONLY MX 0 D FOOT D FOOT DNSITY AND ANKLE AND ANKLE INSRT CSTM MOLD CSTM EA HOME CARE S5108 WILLAMS WILLAMS TRAINING 0 [facility] D AREA D AREA CARE AGENCY ON AGENCY ON CLIENT AGING AGING PER 15 MIN CREATININ 54739 [facility] E OTHER 0 O MEDICAL O MEDICAL SOURCE ASSOC 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 URNLS DIP 13033 [facility] 0 O MEDICAL O MEDICAL STICK/TAB ASSOC ASSOC LET 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 AUTO W/O Y Y MICROSCOP Y HOME CARE S5108 WILLAMS DEERFIELD TRAINING 0 [facility] D AREA D AREA CARE AGENCY ON AGENCY ON CLIENT AGING AGING PER 15 MIN HOME CARE S5108 [facility] TRAINING 0 [facility] AREA CARE AGENCY ON AGENCY ON CLIENT AGING AGING PER 15 MIN HOME CARE S5108 WILLAMS DEERFIELD TRAINING 0 [facility] AREA CARE AGENCY ON AGENCY ON CLIENT AGING AGING PER 15 MIN HOME CARE S5108 WILLAMS WILLAMS TRAINING 0 [facility] AREA CARE AGENCY ON AGENCY ON CLIENT AGING AGING PER 15 MIN HOME CARE S5108 [facility] TRAINING 0 [facility] AREA CARE AGENCY ON AGENCY ON CLIENT AGING AGING PER 15 MIN HOME CARE S5108 [facility] TRAINING 0 [facility] D AREA D AREA CARE AGENCY ON AGENCY ON CLIENT AGING [place] [address] [place] [address] [facility] HEAD/BRAI 0 IMAGING & PAUL N W/O CONTRAST INTERVENT MATERIAL I RADEX 94772 [facility] RIBS UNI 0 HOSP INC HOSP INC W/POSTERO ANT CH MINIMUM 3 VIEWS RADIOLOGI 75236 [facility] C 0 IMAGING & PAUL EXAMINATI ON KNEE 3 INTERVENT VIEWS I THROMBOPL 72607 [facility] ASTIN 0 HOSP INC HOSP INC TIME PARTIAL PLASMA/WH OLE BLOOD INJECTION J1885 [facility] HOSP INC KETOROLAC TROMETHAM INE PER 15 MG PROTHROMB 05382 [facility] IN TIME 0 HOSP INC HOSP INC NONINVASI 55506 [facility] VE 0 HOSP INC HOSP INC EAR/PULSE OXIMETRY SINGLE DETER RADIOLOGI 14432 [facility] C EXAM 0 HOSP INC HOSP INC KNEE COMPLETE 4/MORE VIEWS RADEX 47854 [facility] SPINE 0 IMAGING & PAUL LUMBOSACR AL 2/3 INTERVENT VIEWS I RADEX 51963 [facility] RIBS 0 IMAGING & PAUL UNILATERA L 2 VIEWS INTERVENT I GROUND A0425 [facility] MILEAGE 0 EMS EMS PER STATUTE MILE AMBULANCE A0429 [facility] SERVICE 0 EMS EMS BLS EMERGENCY TRANSPORT COLLECTIO 62879 [facility] N VENOUS 0 HOSP [facility] INC BLOOD VENIPUNCT URE THERAPEUT 09456 [facility] IC 0 HOSP INC HOSP INC PROPHYLAC TIC/DX INJECTION SUBQ/IM HOME CARE S5108 [facility] TRAINING 0 [facility] HOME D AREA [...] CLIENT AGING AGING PER 15 MIN DEBRIDEME 40273 MILADYS HOOK, ABHAY NAIL 0 NATHALIE ZELAYA ANY METHOD 6/> HOME CARE S5108 WILLAMS WILLAMS [...] ON CLIENT AGING AGING PER 15 MIN MIS [place] T1999 WILLAMS WILLAMS ITEMS & 9 [facility] SPL D AREA D AREA [...] CLIENT AGING AGING PER 15 MIN DETERMINA 11509 SHARAN TSANG TION 9 [facility] HOME CARE S5108 WILLAMS WILLAMS TRAINING 9 [...] CLIENT AGING AGING PER 15 MIN ECG 59949 SKY HANNA 9 CARDIOLOG WOOD Jones ECG [...] CLIENT AGING AGING PER 15 MIN PROTHROMB 79881 [facility] IN TIME 9 O MEDICAL O 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 [address] [facility] THYROID 9 O MEDICAL O MEDICAL STIMULATI ASSOC ASSOC NG 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 HORMONE Y Y TSH BLOOD 20537 [facility] COUNT 9 O MEDICAL O MEDICAL COMPLETE ASSOC 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 DIFRNTL Y Y WBC COLLECTIO 52037 [facility] N VENOUS 9 O MEDICAL O MEDICAL BLOOD ASSOC ASSOC 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 URE Y Y HEMOGLOBI 70115 [facility] N 9 O MEDICAL O MEDICAL GLYCOSYLA ASSOC ASSOC DOTTIE A1C 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 Y Y LIPID 27054 [facility] PANEL 9 O MEDICAL O 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 COMPREHEN 60704 [facility] SIVE 9 O MEDICAL 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 Y Y HOME CARE S5108 WILLAMS WILLAMS TRAINING 9 [...] HOME CARE S5108 WILLAMS WILLAMS TRAINING 9 [facility] HOME D [facility] D [facility] AGENCY ON AGENCY ON CLIENT AGING AGING PER 15 MIN HOME CARE S5108 WILLAMS WILLAMS TRAINING 9 [facility] HOME D AREA D [facility] CARE AGENCY ON AGENCY ON CLIENT AGING AGING PER 15 MIN COMPREHEN 07500 [facility] SIVE 9 HOSP INC HOSP INC METABOLIC PANEL LIPID 23742 [facility] PANEL 9 HOSP INC HOSP INC HEMOGLOBI 90859 [facility] N 9 HOSP INC HOSP INC GLYCOSYLA DOTTIE A1C BLOOD 41226 [facility] COUNT 9 HOSP INC HOSP INC COMPLETE AUTO&AUTO DIFRNTL WBC PROTHROMB 92481 LONG [facility] IN TIME 9 O MEDICAL O 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 PROTHROMB 07243 LONG [facility] IN TIME 9 O MEDICAL O 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 ANK FT L1971 [facility] ORTHOTIC 9 D FOOT D FOOT PLSTC/OTH AND ANKLE AND ANKLE MATL W/ANK JNT [facility] A4258 LIBERTY LIBERTY WERED 9 MEDICAL MACHINE WHITENER SUPPLY SUPPLY FOR LANCET EACH BLD GLU A4253 LIBERTY LIBERTY TEST/REAG 9 MEDICAL MEDICAL T STRIPS SUPPLY SUPPLY HOME BLD GLU MON-50 LANCETS A4259 LIBERTY LIBERTY PER BOX 9 MEDICAL MEDICAL OF 100 SUPPLY SUPPLY COLLECTIO 47104 JARRODITZEL WOOMASSIMO N VENOUS 9 O MEDICAL O MEDICAL BLOOD ASSOC ASSOC 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 URE Y Y PROTHROMB 42441 [facility] IN TIME 9 O MEDICAL O 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 PROTHROMB 84442 [facility] IN TIME 9 HOSP INC HOSP INC THROMBOPL 54374 [facility] ASTIN 9 HOSP INC HOSP INC TIME PARTIAL PLASMA/WH OLE BLOOD RADIOLOGI 86410 [facility] C 9 HOSP INC HOSP INC EXAMINATI ON CHEST SINGLE VIEW FRONTAL AMB A0427 [facility] SERVICE 9 EMS EMS ALS EMERGENCY TRANSPORT LEVEL 1 COLLECTIO 84930 [facility] N VENOUS 9 HOSP INC [place] [address] [facility] TROPONIN 9 HOSP INC HOSP INC QUANTITAT TIKA INJECTION J2060 [facility] 9 HOSP INC HOSP INC LORAZEPAM 2 MG CREATINE 54718 [facility] KINASE MB 9 HOSP INC HOSP INC FRACTION ONLY BLOOD 45725 [facility] COUNT 9 HOSP INC HOSP INC COMPLETE AUTO&AUTO DIFRNTL WBC THER 14294 [facility] PROPH/DX 9 HOSP INC HOSP INC NJX IV PUSH SINGLE/1S T SBST/DRUG CREATINE 15977 [facility] KINASE 9 HOSP INC HOSP INC TOTAL ECG 49406 [facility] ROUTINE 9 HOSP INC HOSP INC ECG W/LEAST 12 LDS TRCG ONLY W/O I&R COMPREHEN 90135 [facility] SIVE 9 HOSP INC HOSP INC METABOLIC PANEL NONINVASI 84207 [facility] VE 9 HOSP INC HOSP INC EAR/PULSE OXIMETRY SINGLE DETER GROUND A0425 [facility] MILEAGE 9 EMS EMS PER STATUTE MILE COMPREHEN 53264 [facility] SIVE 9 O MEDICAL 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 Y Y HEMOGLOBI 93078 [facility] N 9 O MEDICAL O MEDICAL GLYCOSYLA ASSOC ASSOC DOTTIE A1C 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 Y Y COLLECTIO 91946 [facility] N VENOUS 9 O MEDICAL O MEDICAL BLOOD ASSOC ASSOC 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 URE Y Y PROTHROMB 07895 [facility] IN TIME 9 O MEDICAL O 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 DUP-SCAN 00844 [facility]NN[facility] VEINS 9 CARLITOS aCge COMPLETE RADIOLOGY ASSOC BILATERAL STUDY DUP-SCAN 10544 [facility] XTR VEINS 9 [facility] JUSTINE D D [facility] L[facility] HOSPITAL STUDY BLOOD 52809 [facility] COUNT 9 HOSP INC HOSP INC COMPLETE AUTOMATED ECG 09577 [facility] ROUTINE 9 HOSP INC HOSP INC ECG W/LEAST 12 LDS TRCG ONLY W/O I&R RADEX 85092 [facility] SPINE 9 HOSP INC HOSP INC CERVICAL 6 OR MORE VIEWS CREATINE 13376 [facility] KINASE 9 HOSP INC HOSP INC TOTAL COLLECTIO 00850 [facility] N VENOUS 9 HOSP [facility] [place] [address] [facility] TROPONIN 9 HOSP INC HOSP INC QUANTITAT TIKA CREATINE 86804 [facility] KINASE MB 9 HOSP INC HOSP INC FRACTION ONLY COMPREHEN 86884 [facility] SIVE 9 HOSP INC HOSP INC METABOLIC PANEL RADEX 19829 [facility] SPINE 9 IMAGING & HEAVEN B CERVICAL 4 OR 5 INTERVENT VIEWS ION PLLC GROUND A0425 [facility] MILEAGE 9 EMS EMS PER STATUTE MILE AMBULANCE A0429 [facility] SERVICE 9 EMS EMS BLS EMERGENCY TRANSPORT THROMBOPL 32731 [facility] ASTIN 9 HOSP INC HOSP INC TIME PARTIAL PLASMA/[place] [address] [facility] HEAD/BRAI 9 HOSP [facility] HOSP INC N W/O CONTRAST MATERIAL PROTHROMB 09831 [facility] IN TIME 9 HOSP INC HOSP INC PROTHROMB 61081 [facility] IN TIME 9 O MEDICAL O 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 COLLECTIO 77308 [facility] N VENOUS 9 O MEDICAL O MEDICAL BLOOD ASSOC ASSOC 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 URE Y Y DEBRIDEME 66233 MILADYS HOOK, NT NAIL 9 NATHALIE ZELAYA ANY METHOD 6/> BLD GLU A4253 LIBERTY LIBERTY TEST/REAG 9 MEDICAL MEDICAL T STRIPS SUPPLY SUPPLY HOME BLD GLU MON-50 LANCETS A4259 LIBERTY LIBERTY PER BOX 9 MEDICAL MEDICAL OF 100 SUPPLY SUPPLY NON-INVAS 91015 [facility] IVE 9 NATHALIE ZELAYA PHYSIOLOG IC STUDY EXTREMITY 3 LEVLS DEBRIDEME 84260 MILADYS HOOK, NT NAIL 9 NATHALIE ZELAYA ANY METHOD 6/> SKIN TEST 24173 [facility] [place] 9 [facility] ACCT DEPARTMEN INTRADERM T AL ANK FT L1940 [facility] ORTHOTIC 9 D FOOT D FOOT PLASTIC/O AND ANKLE AND ANKLE TH MATERIAL CUSTOM YANELI ADD LW L2820 [facility] EXT ORTH 9 D FOOT D FOOT SFT AND ANKLE AND ANKLE INTERFCE MOLD BELW KNEE ADD LOW L2330 [facility] EXT LACER 9 D FOOT D FOOT MOLD PT AND ANKLE AND ANKLE MDL CSTM ORTHOTIC ONLY COLLECTIO 77317 [facility] N VENOUS 9 O MEDICAL O MEDICAL BLOOD ASSOC ASSOC 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 URE Y Y PROTHROMB 39841 [facility] IN TIME 9 O MEDICAL O 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 COLLECTIO 16175 [facility] N VENOUS 9 O MEDICAL O MEDICAL BLOOD ASSOC ASSOC 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 URE Y Y BLOOD 61143 [facility] COUNT 9 O MEDICAL O MEDICAL COMPLETE ASSOC 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 DIFRNTL Y Y WBC PROTHROMB 91111 [facility] IN TIME 9 O MEDICAL O 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 COMPREHEN 61255 [facility] SIVE 9 O MEDICAL 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 Y Y ECG 43008 SK[facility] WANG 9 O MEDICAL YANIRE ECG W/LEAST ASSOCIATE 12 LDS S TRCG ONLY W/O I&R PROTHROMB 01004 [facility] IN TIME 9 O MEDICAL O 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 BLOOD 13089 [facility] COUNT 9 O MEDICAL O MEDICAL COMPLETE ASSOC 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 DIFRNTL Y Y WBC COLLECTIO 42916 [facility] N VENOUS 9 O MEDICAL O MEDICAL BLOOD ASSOC ASSOC 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 URE Y Y COMPREHEN 59534 [facility] SIVE 9 O MEDICAL 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 Y Y NORMAL A4256 [facility] LOW AND 9 MEDICAL MEDICAL HIGH SUPPLY SUPPLY CALIBRATO R SOLUTION/ CHIPS BLD GLU A4253 [facility] LIBERTY TEST/REAG 9 MEDICAL MEDICAL T STRIPS SUPPLY SUPPLY HOME BLD GLU MON-50 LANCETS A4259 [facility] LIBERTY PER BOX 9 MEDICAL MEDICAL OF 100 SUPPLY SUPPLY A4258 LIB[facility] LIBERTY WERED 9 MEDICAL MACHINE WHITENER SUPPLY SUPPLY FOR LANCET EACH DEBRIDEME 94389 WOLFE, WOLFE, NT NAIL 9 ESA ESA ANY ER J ER J METHOD 6/> COLLECTIO 13586 LONG ALVES N VENOUS 9 O MEDICAL O MEDICAL BLOOD ASSOC ASSOC 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 URE Y Y PROTHROMB 76868 LONG ALVES IN TIME 9 O MEDICAL O 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 LIPID 32602 LONG GARAY PANEL 9 O MEDICAL O 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 COMPREHEN 82371 [facility] SIVE 9 O MEDICAL 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 Y Y LUMB-SACR L0631 LYNNCTARAN BRIGGS AL ORTHOS 9 MEDOxxy MEDOxxy SAGIT INC INC CNTRL RIGID A&P PREFAB KNEE L1810 LYNNCORE LYNNCORE ORTHOSIS 9 MEDGROUP MEDOxxy ELASTIC INC INC JOINTS PREFAB CUSTOM FIT ANKLE L1902 LYNNCORE LYNNCORE ORTH 9 [facility]Ox[facility] MED[facility] ANKLE INC INC GAUNT/SIM PREFAB OFF-THE-S HELF HYSTEROSC 33957 ENRIQUE ENRIQUE OPY BX 9 CO CO ENDOMETRI [facility] UM&/POLYP INC INC C W/WO D&C INJECTION J2250 ENRIQUE ENRIQUE 9 [facility] MIDAZOLAM [facility] HCL PER INC INC 1 MG INJECTION J2405 ENRIQUE ENRIQUE 9 [facility] PER 1 MG BLOOD 24505 ENRIQUE ENRIQUE COUNT 9 CO CO COMPLETE [facility] AUTO&AUTO INC INC DIFRNTL WBC GONADOTRO 27120 ENRIQUE ENRIQUE PIN 9 CO CO CHORIONIC [facility] INC INC QUALITATI VE PROTHROMB 28250 ENRIQUE ENRIQUE IN TIME 9 [facility] INC ECG 88881 ENRIQUE ENRIQUE ROUTINE 9 [facility] ECG [facility] W/LEAST INC INC 12 LDS TRCG ONLY W/O I&R COMPREHEN 11834 ENRIQUE ENRIQUE SIVE 9 CO NV METABOLIC [facility] PANEL INC INC RADIOLOGI 47539 ENRIQUE ENRIQUE C EXAM 9 [place] CHEST 2 [facility] VIEWS INC INC FRONTAL&L ATERAL ANES 24400 [facility] [place], HYSTEROSC 9 ANESTHESI BEVERLY Robert OPY&/HYST A PC EROSALPIN GOGRAPHY W/[place] [address] ASSOCIATE DELILAH, SURG 9 D ABDIAZIZ Kamara PATHOLOGY PATHOLOGI [facility] ROSCOPIC EXAM INJECTION J1885 ENRIQUE ENRIQUE 9 [facility] KETOROLAC [facility] INC INC TROMETHAM INE PER 15 MG PROTHROMB 97329 LONG ALVES IN TIME 8 O MEDICAL O 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 COMPREHEN 64251 LONG ALEVS SIVE 8 O MEDICAL 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 Y Y BLOOD 86083 LONG ALVES COUNT 8 O MEDICAL O MEDICAL COMPLETE ASSOC 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 DIFRNTL Y Y WBC CREATINE 56810 LONG ALVES KINASE 8 O MEDICAL O MEDICAL TOTAL ASSOC 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 COLLECTIO 36292 [facility] N VENOUS 8 O MEDICAL O MEDICAL BLOOD ASSOC ASSOC 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 URE Y Y SCREENING 12380 [facility], 8 IMAGING & MARYAM L MAMMOGRAP HY INTERVENT BILATERAL ION PLLC US PELVIC 99663 [facility] [employer], 8 IMAGING & MARYAM L NONOBSTET LUIS INTERVENT REAL-TIME ION PLLC IMAGE COMPLETE BASIC 17997 [facility] METABOLIC 8 O MEDICAL O MEDICAL PANEL ASSOC ASSOC CALCIUM 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 TOTAL Y Y COLLECTIO 01795 [facility] N VENOUS 8 O MEDICAL O MEDICAL BLOOD ASSOC ASSOC 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 URE Y Y BLOOD 23670 [facility] COUNT 8 O MEDICAL O MEDICAL COMPLETE ASSOC 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 DIFRNTL Y Y WBC PROTHROMB 33047 [facility] IN TIME 8 O MEDICAL O 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 STRAPPING 05310 AIDEN WOLFE UNNA 8 [place] [address] PREMIER SKEENS, HEAD/BRAI 8 IMAGING & MARYAM L N W/O CONTRAST INTERVENT MATERIAL ION PLLC AMB A0427 [facility] SERVICE 8 EMS EMS ALS EMERGENCY TRANSPORT LEVEL 1 RADIOLOGI 07425 [facility] C 8 HOSP INC HOSP INC EXAMINATI [place] [address] [facility] TROPONIN 8 HOSP INC HOSP INC QUANTITAT TIKA CREATINE 43933 [facility] KINASE MB 8 HOSP INC HOSP INC FRACTION ONLY COLLECTIO 17340 [facility] N VENOUS 8 HOSP INC HOSP INC BLOOD VENIPUNCT URE BLOOD 12834 [facility] COUNT 8 HOSP INC HOSP INC COMPLETE AUTO&AUTO DIFRNTL WBC ECG 09741 [facility] ROUTINE 8 HOSP INC HOSP INC ECG W/LEAST 12 LDS TRCG ONLY W/O I&R CREATINE 89401 [facility] KINASE 8 HOSP INC HOSP INC TOTAL GROUND A0425 [facility] MILEAGE 8 EMS EMS PER STATUTE MILE COMPREHEN 33014 [facility] SIVE 8 HOSP INC HOSP INC METABOLIC PANEL RADIOLOGI 45465 [facility], C EXAM 8 IMAGING & MARYAM L CHEST 2 VIEWS INTERVENT FRONTAL&L ION PLLC ATERAL GROUND A0425 [facility] MILEAGE 8 EMS EMS PER STATUTE MILE AMBULANCE A0429 [facility] SERVICE 8 EMS [place] [address] PREMIER SKEENS, HEAD/BRAI 8 IMAGING & MARYAM L N W/O CONTRAST INTERVENT MATERIAL ION PLLC BASIC 51175 [facility] METABOLIC 8 HOSP INC HOSP INC PANEL CALCIUM TOTAL NONINVASI 50844 [facility] VE 8 HOSP INC HOSP INC EAR/PULSE OXIMETRY SINGLE DETER CREATINE 200 64795 [facility] KINASE 8 HOSP INC HOSP INC TOTAL BLOOD 200 76920 [facility] COUNT 8 HOSP INC HOSP INC COMPLETE AUTO&AUTO DIFRNTL WBC CREATINE 10-200 41894 [facility] KINASE MB 8 HOSP INC HOSP INC FRACTION ONLY [place] 12-29-200 34012 [facility] TROPONIN 8 HOSP INC HOSP INC QUANTITAT [place] OF 10-200 24716 [facility] TROPONIN 8 HOSP INC HOSP INC QUANTITAT TIKA CREATINE 10--200 82865 [facility] KINASE MB 8 HOSP INC HOSP INC FRACTION ONLY BLOOD --200 51468 [facility] COUNT 8 HOSP INC HOSP INC COMPLETE AUTO&AUTO DIFRNTL WBC ECG 12-28-200 88084 [facility] ROUTINE 8 HOSP INC HOSP INC ECG W/LEAST 12 LDS TRCG ONLY W/O I&R CREATINE 10-200 85329 [facility] KINASE 8 HOSP INC HOSP INC TOTAL NONINVASI 200 65320 [facility] VE 8 HOSP INC HOSP INC EAR/PULSE OXIMETRY SINGLE DETER COMPREHEN 89876 [facility] SIVE 8 HOSP INC HOSP INC METABOLIC PANEL GROUND A0425 [facility] MILEAGE 8 EMS EMS PER STATUTE MILE AMB A0427 [facility] SERVICE 8 EMS EMS ALS EMERGENCY TRANSPORT LEVEL 1 RADIOLOGI 15777 Jayson NEWMAN 8 CAMACHO & MARYAM Boyd EXAMINATI ON CHEST INTERVENT SINGLE ION PLLC VIEW FRONTAL PROTHROMB 11187 [facility] IN TIME 8 HOSP INC HOSP INC ADMINISTR G0008 LONG ALFARO, ATION OF 8 O MEDICAL YANIRE INFLUENZA VIRUS ASSOCIATE VACCINE S IIV3 24962 [facility], VACCINE 8 O MEDICAL YANIRE SPLIT VIRUS 0.5 ASSOCIATE ML S DOSAGE IM USE PROTHROMB 87373 [facility] IN TIME 8 O MEDICAL O 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 COLLECTIO 01651 [facility] N VENOUS 8 O MEDICAL O MEDICAL BLOOD ASSOC ASSOC 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 URE Y Y DEBRIDEME 86766 WOLFE, WOLFE, NT NAIL 8 ESA SEE ANY ER J ER J METHOD 6/> ECG 98458 SKY PERDUE 8 CARDIOLOG KHALED ECG Y W/LEAST 12 LDS W/I&R CTA ABDL 67144 IZABELA BAKER, AORTA&BI 8 CARLITOS Cage ILIOFEM RADIOLOGY W/CONTRAS ASSOC T&POSTP DUPLEX 79401 IZABELA AREVALOERLY, SCAN 8 ULI Cage EXTRACRAN RADIOLOGY [place] [address] [facility] ANGIOGRAP 8 JUSTINE ROWLEY [facility] PROGRAMME 77727 Robert TURPIN STIMJ & 8 D CLINIC VICENTE Cage PACG PLLC AFTER IV DRUG NFS GROUND A0425 [facility] MILEAGE 8 EMS EMS PER STATUTE MILE COMPRE 29435 VALENTINE TURPIN 8 D CLINIC VICENTE Cage YSIOLOGIC PLLC ARRHYTHMI A INDUCTION SBSQ 53502 [facility] 8 D [facility] J 15 PHYSICIAN MINUTES S AMB A0427 [facility] SERVICE 8 EMS EMS ALS EMERGENCY TRANSPORT LEVEL 1 CARD EP 3726 [facility] STIMULATI 8 [facility] ON&RECORD D D ING [facility] ANGIOCARD 8853 [facility] IOGRAPHY 8 [facility] OF LEFT D D HEART [facility] S LEFT 3722 [facility] HEART 8 [facility] CARDIAC D D CATHETERI [facility] CORONARY 8856 [facility] ARTERIOGR 8 [facility] APHY D D USING [facility] CATHETERS INJECTION 40755 [facility] GARCIA CARDIAC 8 D CLINIC VICENTE M CATHJ L PLLC VENTR/L ATR ANGIOGRAP H SBSQ 63644 [facility] 8 D [facility] J 15 PHYSICIAN MINUTES S SBSQ 45153 [facility] 8 D CLINIC VICENTE M CARE/DAY PLLC 25 MINUTES L HRT 78115 JUSTINE GARCIA CATHETERI 8 D CLINIC [facility] M ZATION [place] [address] JUSTINE GARCIA, C-CATHJ 8 D CLINIC VICENTE Niles F/SLCTV C PLLC ANGRPH I SI&R 52712 JUSTINE GARCIA, F/NJX PX 8 D CLINIC VICENTE M DURING PLLC C-CATHJ VENTR&/AT R ANGRPH I SI&R 20726 JUSTINE GARCIA, F/NJX PX 8 D CLINIC VICENTE M DURING PLLC C-CATHJ PULM&/OR SELECT NONINVASI 88983 [facility] VE 8 HOSP INC HOSP INC EAR/PULSE OXIMETRY SINGLE DETER COMPREHEN 40037 [facility] SIVE 8 HOSP INC HOSP INC METABOLIC PANEL INITIAL 05366 [facility] JOSE, INPATIENT 8 D CLINIC VICENTE M CONSULT PLLC NEW/ESTAB PT 80 MIN GROUND A0425 [facility] MILEAGE 8 EMS EMS PER STATUTE MILE INITIAL 11779 [facility] J 50 PHYSICIAN MINUTES S COLLECTIO 68799 [facility] N VENOUS 8 HOSP [facility] HOSP [facility] [place] [address] [facility] TROPONIN 8 HOSP [facility] HOSP INC QUANTITAT TIKA CREATINE 63019 [facility] KINASE MB 8 HOSP [facility] INC FRACTION ONLY ECG 42975 [facility] ROUTINE 8 HOSP [facility] INC ECG W/LEAST 12 LDS TRCG ONLY W/O I&R BLOOD 34477 [facility] COUNT 8 HOSP [facility] HOSP INC COMPLETE AUTO&AUTO DIFRNTL WBC CREATINE 70270 [facility] KINASE 8 HOSP [facility] HOSP INC TOTAL AMB A0427 [facility] SERVICE 8 EMS EMS ALS [place] [address] IZABELA ROCHA, HEAD/BRAI 8 CASTRO N W/O RADIOLOGY CONTRAST ASSOC MATERIAL RADIOLOGI 89333 [facility] C 8 HOSP [facility] HOSP INC EXAMINATI ON CHEST SINGLE VIEW FRONTAL N-INVAS 24366 [facility] FERNANDEZ PHYSIOLOG 8 CARDIOLOG KHALED IC STD Y LXTR ART COMPL BI DUP-SCAN 95970 [facility] XTR VEINS 8 HOSP [facility] INC UNILATERA L/LIMITED STUDY RADEX 96482 [facility] MARILYNN, HAND 8 [facility] [address] RADEX 73725 [facility] MARILYNN ELBOW 2 8 [facility] ECG 40022 [facility]I FERNANDEZ, ROUTINE 8 CARDIOLOG KHALED ECG Y W/LEAST 12 LDS W/I&R PROTHROMB 22349 [facility] IN TIME 8 O MEDICAL O 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 ECG 31398 SOMEMAY FERNANDEZ, ROUTINE 8 CARDIOLOG KHALED ECG Y W/LEAST 12 LDS W/I&R BLOOD 75763 [facility] COUNT 8 HOSP INC HOSP INC COMPLETE AUTO&AUTO DIFRNTL WBC CREATINE 05649 [facility] KINASE 8 HOSP INC HOSP INC TOTAL COLLECTIO 54575 [facility] N VENOUS 8 HOSP INC HOSP INC BLOOD VENIPUNCT URE CREATINE 14586 [facility] KINASE MB 8 HOSP [place] [address] [facility] TROPONIN 8 HOSP INC HOSP INC QUANTITAT TIKA BASIC 01475 [facility] METABOLIC 8 HOSP INC HOSP INC PANEL CALCIUM TOTAL GROUND A0425 [facility] MILEAGE 8 EMS EMS PER STATUTE MILE COMPREHEN 81649 [facility] SIVE 8 HOSP [place] [address] [facility] TROPONIN 8 HOSP INC HOSP INC QUANTITAT TIKA COLLECTIO 07470 [facility] N VENOUS 8 HOSP INC HOSP INC BLOOD VENIPUNCT URE CREATINE 21197 [facility] KINASE MB 8 HOSP INC HOSP INC FRACTION ONLY CREATINE 99253 [facility] KINASE 8 HOSP INC HOSP INC TOTAL BLOOD 99613 [facility] COUNT 8 HOSP INC HOSP INC COMPLETE AUTO&AUTO DIFRNTL WBC ECG 42830 [facility] ROUTINE 8 HOSP INC HOSP INC ECG W/LEAST 12 LDS TRCG ONLY W/O I&R PROTHROMB 61853 [facility] IN TIME 8 HOSP INC HOSP INC RADIOLOGI 28436 [facility] C 8 HOSP INC HOSP INC EXAMINATI ON CHEST SINGLE VIEW FRONTAL AMB A0427 [facility] SERVICE 8 EMS EMS ALS EMERGENCY TRANSPORT LEVEL 1 ECG 90821 MORTE[facility] PRO, ROUTINE 8 ECG BECCA BECCA W/LEAST 12 LDS TRCG ONLY W/O I&R SKIN TEST 68258 [facility] [address] ACCT DEPARTMEN [place] ECG [address] [facility] ROUTINE 8 CARDIOLOG CARDIOLOG ECG Y Y W/LEAST 12 LDS W/I&R ECG 86305 [facility], ROUTINE 8 CARDIOLOG KHALED ECG Y W/LEAST 12 LDS W/I&R HOSPITAL 71651 RAJ ANTHONY, DISCHARGE 8 SADAF SADAF DAY MANAGEMEN T 30 MIN/< COMPRE 03332 THE THE ELECTROPH 8 MEDICAL MEDICAL YSIOLOGIC SPEC [place] ARRHYTHMI A INDUCTION COMPRE 98239 THE THE ELECTROPH MEDICAL MEDICAL YSIOL XM SPEC OF SPEC OF W/LEFT [place] ATRIAL PACNG/REC ICAR CATH 50750 [facility] ARRHYTGNI SPEC OF SPEC OF C FOC [place] SUPVENTR TCHYCAR INITIAL 37031 THE [facility] 8 MEDICAL MEDICAL CARE/DAY SPEC OF SPEC OF 50 [place] MINUTES INTRA-TATIANNA 27389 THE THE TRIC&/ATR MEDICAL MEDICAL IAL MAPG SPEC OF SPEC OF [place] W/CATH MA AMB A0427 [facility] SERVICE 8 FIRE/EMS FIRE/EMS ALS EMERGENCY TRANSPORT LEVEL [address] [facility] MILEAGE 8 FIRE/EMS FIRE/EMS PER STATUTE MILE SBSQ 60599 [facility] 8 CARDIOLOG CARDIOLOG CARE/DAY Y Y 25 MINUTES SBSQ 55113 [facility] 8 CARDIOLOG KHALED CARE/DAY Y 25 MINUTES SBSQ 98995 [place] [address] CARDIOLOG CARDIOLOG CARE/DAY Y Y 25 MINUTES SBSQ 32406 [place] [address] CARDIOLOG CARDIOLOG CARE/DAY Y Y 25 MINUTES CARDIOVER 20487 [facility] TIERRA 8 CARDIOLOG CARDIOLOG ELECTIVE Y Y ARRHYTHMI A EXTERNAL ANES 24409 [facility] INTEG SYS 8 D D ELEC ANESTHESI ANESTHESI CONVERSIO A ASSOC A ASSOC N ARRHYTHMI SBSQ 24535 [facility] 8 CARDIOLOG CARDIOLOG CARE/DAY Y Y 25 MINUTES INITIAL 47118 [facility] INPATIENT 8 FAMILY FAMILY CONSULT CARE CARE NEW/ESTAB PT 55 MIN SBSQ 12715 [facility] 8 CARDIOLOG CARDIOLOG CARE/DAY Y Y [address]ES [address] [facility] INPATIENT 8 CARDIOLOG CARDIOLOG CONSULT Y Y NEW/ESTAB PT 80 MIN CARDIOVER 94530 [facility] 8 CARDIOLOG CARDIOLOG ELECTIVE Y Y ARRHYTHMI A EXTERNAL ANES 30869 [facility] CUMBERLAN INTEG SYS 8 D D ELEC ANESTHESI ANESTHESI CONVERSIO A ASSOC A ASSOC N ARRHYTHMI ECG [address]40 [facility] ROUTINE 8 CARDIOLOG CARDIOLOG ECG Y Y W/LEAST 12 LDS W/I&R Encounters Encounter Start End Date Code Location Performer Type Date DOMICIL/R 72273 [facility] EST HOME 7 7 NEW PT VISIT MOD SEVER 30 MIN EMERGENCY 18836 SAUL MARIEY DEPT 7 7 PHYSICIAN VISIT S, PLL HIGH SEVERITY& THREAT [facility] - 6 6 [facility] MAY - 6 6 [facility] - [facility] 6 [facility] DOM/R-MERON 25594 PAUL Jhonson E/M EST 5 5 [facility] SIGNIF NEW PROB 60 MINUTES EMERGENCY 69327 EMERGENCY [facility] JENNIFER DEPT 5 5 COVERAGE VISIT HIGH CORPORATI SEVERITY& THREAT FUN DOM/R-MERON 28503 PAUL Johnson E/M EST 5 5 [facility] [facility] SIGNIF NEW PROB 60 MINUTES [facility] D [facility] HOS OFFICE 77816 CH[facility]I GOYAL OUTPATIEN 5 5 CARDIOLOG T VISIT Y 25 MINUTES OFFICE 92703 [facility] OUTPATIEN 5 5 AND SLEEP Z BONNER T NEW 30 DISORDER MINUTES OFFICE 01216 [facility] OUTPATIEN 5 5 O MEDICAL T VISIT 15 ASSOCIATE MINUTES CLINIC, [facility] 5 5 O MEDICAL HEALTH ASSOCIATE OFFICE 65869 [facility] 5 5 O MEDICAL T VISIT 15 ASSOCIATE MINUTES CLINIC, [facility] 5 5 O MEDICAL HEALTH ASSOCIATE OFFICE 39348 [facility] GOYAL OUTPATIEN 5 5 CARDIOLOG T VISIT Y 25 MINUTES OFFICE 44086 [facility] GOYAL OUTPATIEN 5 5 CARDIOLOG T VISIT Y 25 MINUTES EMERGENCY 74409 [facility] MEDROSO DEPT 5 5 JACQUIE FLORIN VISIT EMERGENCY HIGH PHYS SEVERITY& THREAT FUNCJ EMERGENCY 90562 EMERGENCY EARL 5 5 [facility] STA DEPARTMEN T VISIT CORPORATI HIGH/URGE NT SEVERITY EMERGENCY 84902 EMERGENCY WOODY II 5 5 COVERAGE JAM DEPARTMEN T VISIT CORPORATI HIGH/URGE NT SEVERITY EMERGENCY 80790 [facility] 5 5 HOSP INC DEPARTMEN T VISIT MODERATE SEVERITY OFFICE 43735 [facility] 5 5 O MEDICAL T VISIT 15 ASSOCIATE MINUTES CRITICAL [facility] ACCESS 5 5 HOSP INC HOSPITAL HOME PERSONAL HEALTH, 4 4 TOUCH OUTPATIEN HOME CARE T OF CLINIC, [facility] 4 4 O MEDICAL HEALTH ASSOCIATE OFFICE 84934 [facility] OUTPATI[facility] 4 4 O MEDICAL T VISIT 15 ASSOCIATE MINUTES OFFICE 65778 [facility] 4 4 O MEDICAL T VISIT 15 ASSOCIATE MINUTES CLINIC, [facility] 4 4 O MEDICAL HEALTH ASSOCIATE OFFICE 54801 EAR NOSE SEBASTIÁN OUTPATIEN 4 4 AND RAN T VISIT THROAT 15 SPECIALI MINUTES CLINIC, [facility] 4 4 O MEDICAL HEALTH ASSOCIATE OFFICE 41984 [facility] 4 4 O MEDICAL T VISIT 15 ASSOCIATE MINUTES EMERGENCY 48901 EMERGENCY WOOD II 4 4 COVERAGE JAM DEPARTMEN T VISIT CORPORATI HIGH/URGE NT SEVERITY HOME PERSONAL HEALTH, 4 4 TOUCH OUTPATIEN HOME CARE T OF OFFICE 97466 LARRYISABEL HARRIS OUTPATIEN 4 4 D FOOT & DEN T VISIT ANKLE 15 CENT MINUTES OFFICE 44430 EAR NOSE SEBASTIÁN OUTPATIEN 4 4 AND RAN T NEW 30 THROAT MINUTES SPECIALI CLINIC, [facility] 4 4 O MEDICAL HEALTH ASSOCIATE OFFICE 39852 [facility] 4 4 O MEDICAL T VISIT 15 ASSOCIATE MINUTES HOME PERSONAL HEALTH, 4 4 TOUCH OUTPATIEN HOME CARE T OF OFFICE 53799 BALJIT SMILEY OUTPATIEN 4 4 CONUNTY CONUNTY T VISIT 5 HEALTH HEALTH MINUTES DEPARTM DEPARTM OFFICE 62512 BALJIT SMILEY OUTPATIEN 4 4 CONUNTY CONUNTY T VISIT HEALTH HEALTH 10 DEPARTM DEPARTM MINUTES OFFICE 17738 CHIDI FERNANDEZ JAY JAY OUTPATIEN 4 4 CARDIOLOG T VISIT Y 25 MINUTES CLINIC, [facility] 4 4 O MEDICAL HEALTH ASSOCIATE OFFICE 19143 JARRODLL OUTPATIEN 4 4 O MEDICAL T VISIT 15 ASSOCIATE MINUTES CLINIC, [facility]URAL 4 4 O MEDICAL HEALTH ASSOCIATE OFFICE 18184 WOOICELL OUTPATIEN 4 4 O MEDICAL T VISIT 15 ASSOCIATE MINUTES OFFICE 06552 [facility] GOYAL OUTPATIEN 4 4 CARDIOLOG T VISIT Y 15 MINUTES OFFICE 27904 JARRODLL OUTPATIEN 4 4 O MEDICAL T VISIT 15 ASSOCIATE MINUTES CLINIC, [facility] RURAL 4 4 O MEDICAL HEALTH ASSOCIATE EMERGENCY 16637 [facility] 4 4 HOSP [facility] DEPARTMEN T VISIT HIGH/URGE NT SEVERITY CRITICAL [facility] ACCESS 4 4 HOSP [facility] HOSPITAL CLINIC, [facility] RURAL 4 4 O MEDICAL HEALTH ASSOCIATE OFFICE 43841 JARRODLL OUTPATIEN 4 4 O MEDICAL T VISIT 15 ASSOCIATE MINUTES OFFICE 13679 JARRODLL OUTPATIEN 4 4 O MEDICAL T VISIT 15 ASSOCIATE MINUTES CLINIC, [facility] RURAL 4 4 O MEDICAL HEALTH ASSOCIATE CLINIC, [facility]URAL 4 4 O MEDICAL HEALTH ASSOCIATE OFFICE 75080 JARRODLL OUTPATIEN 4 4 O MEDICAL T VISIT 15 ASSOCIATE MINUTES OFFICE 54601 JARRODLL OUTPATIEN 4 4 O MEDICAL T VISIT 15 ASSOCIATE MINUTES CLINIC, [facility] RURAL 4 4 O MEDICAL HEALTH ASSOCIATE HOME PERSONAL HEALTH, 4 4 TOUCH OUTPATIEN HOME CARE T OF [facility], [facility] 3 3 O MEDICAL HEALTH ASSOCIATE OFFICE 26317 [facility] OUTPATIEN 3 3 O MEDICAL T VISIT 15 ASSOCIATE MINUTES CLINIC, [facility] 3 3 O MEDICAL HEALTH ASSOCIATE OFFICE 87715 [facility] 3 3 O MEDICAL T VISIT 15 ASSOCIATE MINUTES OFFICE 50104 [facility] GOYAL OUTPATIEN 3 3 CARDIOLOG T VISIT Y 15 MINUTES OFFICE 03441 WOOMASSIMO OUTPATIEN 3 3 O MEDICAL T VISIT 15 ASSOCIATE MINUTES CLINIC, [facility] 3 3 O MEDICAL HEALTH ASSOCIATE HOME PERSONAL HEALTH, 3 3 TOUCH OUTPATIEN HOME CARE T OF OFFICE 57711 SPORTS SUPINSKI OUTPATIEN 3 3 MEDICINE JENNIFER T VISIT & 10 ORTHOPAED MINUTES I CLINIC, [facility] 3 3 O MEDICAL HEALTH ASSOCIATE OFFICE 13930 [facility] 3 3 O MEDICAL T VISIT 15 ASSOCIATE MINUTES OFFICE 36812 ARGENISSHERIDAN OUTPATIEN 3 3 CARDIOLOG T VISIT Y 15 MINUTES CRITICAL [facility] ACCESS 3 3 [facility] 14342 PRIETO ALBERT DEPT 3 3 EMERGENCY I RENEE VISIT SERVICES HIGH SEVERITY& THREAT FUNJ OFFICE 28993 [facility] ANSELMOPATIEN 2 2 O MEDICAL T VISIT 15 ASSOCIATE MINUTES CLINIC, [facility] 2 2 O MEDICAL HEALTH ASSOCIATE OFFICE 41606 URENA STAR URENA STAR OUTPATIEN 2 2 T NEW 45 MINUTES CRITICAL [facility] ACCESS 2 2 [facility] 2 2 O MEDICAL HEALTH ASSOCIATE OFFICE 27476 LONG ANSELMOPATIEN 2 2 O MEDICAL T VISIT 15 ASSOCIATE MINUTES OFFICE 19138 [facility] OUTPATIEN 2 2 CARDIOLOG T VISIT Y 15 MINUTES OFFICE 75040 [facility] OUTPATIEN 2 2 O MEDICAL T VISIT 15 ASSOCIATE MINUTES CLINIC, [facility] RURAL 2 2 O MEDICAL HEALTH ASSOCIATE OFFICE 71751 [facility] OUTPATIEN 2 2 O MEDICAL T VISIT 15 ASSOCIATE MINUTES CLINIC, [facility] 2 2 O MEDICAL HEALTH ASSOCIATE OFFICE 18912 [facility] OUTPATIEN 2 2 O MEDICAL T VISIT 15 ASSOCIATE MINUTES CLINIC, [facility] 2 2 O MEDICAL HEALTH ASSOCIATE OFFICE 66654 [facility]I GOYAL OUTPATIEN 2 2 CARDIOLOG T VISIT Y [address] [facility] 2 2 CARDIOLOG T VISIT Y 15 MINUTES OFFICE 32397 ESSIE CALL OUTPATIEN 2 2 T VISIT 15 MINUTES [facility] - 2 2 CUMBERLAN OUTPATIEN D T [facility] CLINIC, [facility] 2 2 O MEDICAL HEALTH ASSOCIATE OFFICE 00760 [facility] OUTPATIEN 2 2 O MEDICAL T VISIT 15 ASSOCIATE MINUTES OFFICE 46482 ESSIE CALL OUTPATIEN 2 2 T NEW 30 MINUTES OFFICE 58322 [facility] OUTPATIEN 2 2 O MEDICAL T VISIT 15 ASSOCIATE MINUTES CLINIC, [facility] 2 2 O MEDICAL HEALTH ASSOCIATE HOME PERSONAL HEALTH, 2 2 TOUCH OUTPATIEN HOME CARE T OF EMERGENCY 33255 PRIETO KELLEY DEPT 2 2 EMERGENCY KOL VISIT SERVICES HIGH SEVERITY& THREAT [facility] - 2 2 CUMBERLAN OUTPATIEN D T REGIONAL HOS EMERGENCY 70808 [facility] 2 2 [facility] DEPARTMEN D T VISIT REGIONAL HIGH/URGE HOS NT SEVERITY OFFICE 56967 [facility] 2 2 O MEDICAL T VISIT 15 ASSOCIATE MINUTES CLINIC, [facility] 2 2 O MEDICAL HEALTH ASSOCIATE EMERGENCY 18235 PRIETO KIMBLE 2 2 EMERGENCY GRE DEPARTMEN SERVICES T VISIT MODERATE SEVERITY [facility] - 2 2 [facility] OUTPATIEN D T REGIONAL HOS EMERGENCY 24055 [facility] 2 2 [facility] DEPARTMEN D T VISIT REGIONAL HIGH/URGE HOS NT SEVERITY EMERGENCY 27272 [place] 2 2 HOSP INC DEPARTMEN T VISIT HIGH/URGE NT SEVERITY CRITICAL [facility] ACCESS 2 2 HOSP INC HOSPITAL EMERGENCY 32548 EMERGENCY [facility] DEPT 2 2 COVERAGE LYN VISIT HIGH CORPORATI SEVERITY& THREAT FUNCJ CLINIC, [facility] 2 2 O MEDICAL HEALTH ASSOCIATE OFFICE 84297 [facility] O MEDICAL T VISIT 15 ASSOCIATE MINUTES OFFICE 38972 BALJIT SMILEY OUTPATIEN 2 2 CONUNTY CONUNTY T VISIT 5 HEALTH HEALTH MINUTES DEPARTM DEPARTM OFFICE 17946 BALJIT SMILEY OUTPATIEN 2 2 CONUNTY CONUNTY T VISIT HEALTH HEALTH 10 DEPARTM DEPARTM MINUTES CLINIC, [facility] 2 2 O MEDICAL HEALTH ASSOCIATE OFFICE 02820 [facility] 2 O MEDICAL T VISIT 10 ASSOCIATE MINUTES OFFICE 58092 [facility] 2 O MEDICAL T VISIT 25 ASSOCIATE MINUTES CLINIC, [facility] 2 2 O MEDICAL HEALTH ASSOCIATE CLINIC, [facility] 2 2 O MEDICAL HEALTH ASSOCIATE OFFICE 25719 MONTICELL OUTPATIEN 2 2 O MEDICAL T VISIT 15 ASSOCIATE MINUTES OFFICE 47362 SHARAN TSANG OUTPATIEN 2 2 JAM JAM T VISIT 15 MINUTES EMERGENCY 94401 EMERGENCY [facility] DEPT 2 2 COVERAGE LYN VISIT HIGH CORPORATI SEVERITY& THREAT FUNCJ EMERGENCY 66327 [facility] 2 2 HOSP INC DEPARTMEN T VISIT HIGH/URGE NT SEVERITY CRITICAL [facility] CO ACCESS 2 2 [facility] CL[facility], [facility] 2 2 O MEDICAL HEALTH ASSOCIATE OFFICE 65526 JARRODLL OUTPATIEN 2 2 O MEDICAL T VISIT 15 ASSOCIATE MINUTES CLINIC, [facility] 2 2 O MEDICAL HEALTH ASSOCIATE OFFICE 31730 [facility] OUTPATIEN 2 2 O MEDICAL T VISIT 15 ASSOCIATE MINUTES OFFICE 76031 [facility] OUTPATIEN 2 2 O MEDICAL T VISIT 15 ASSOCIATE MINUTES CLINIC, [facility] 2 2 O MEDICAL HEALTH ASSOCIATE HOME PERSONAL HEALTH, 2 2 TOUCH OUTPATIEN HOME CARE T OF CLINIC, [facility] 2 2 O MEDICAL HEALTH ASSOCIATE OFFICE 50321 [facility] 2 O MEDICAL T VISIT 15 ASSOCIATE MINUTES OFFICE 44293 JARRODLL OUTPATIEN 2 2 O MEDICAL T VISIT 10 ASSOCIATE MINUTES CLINIC, [facility] 2 2 O MEDICAL HEALTH ASSOCIATE OFFICE 39008 WOOICELL OUTPATIEN 1 1 O MEDICAL T VISIT 15 ASSOCIATE MINUTES CLINIC, [facility] 1 1 O MEDICAL HEALTH ASSOCIATE OFFICE 13600 MALLY HYLTON OUTPATIEN 1 1 MEDICAL FISTER T VISIT SERV CHRIS 40 FOUNDATIO MINUTES OFFICE 80007 [facility] OUTPATIEN 1 1 O MEDICAL JUAN T VISIT 15 ASSOCIATE MINUTES [facility] 1 O MEDICAL HEALTH ASSOCIATE OFFICE 61426 [facility] 1 1 O MEDICAL T VISIT 15 ASSOCIATE MINUTES CLINIC, [facility] 1 1 O MEDICAL HEALTH ASSOCIATE OFFICE 23579 [facility] 1 1 O MEDICAL T VISIT 15 ASSOCIATE MINUTES OFFICE 55774 [facility] 1 1 O MEDICAL T VISIT 15 ASSOCIATE MINUTES CLINIC, [facility] 1 1 O MEDICAL HEALTH ASSOCIATE OFFICE 30296 [facility] 1 1 O MEDICAL T VISIT 15 ASSOCIATE MINUTES CLINIC, [facility] 1 1 O MEDICAL HEALTH ASSOCIATE EMERGENCY 68745 [place] [facility] DEPT 1 1 HOSP INC VISIT HIGH SEVERITY& THREAT FUNCJ AMBULATOR [facility] Y SURGERY 1 1 HOSP [facility] CENTER EMERGENCY 83641 EMERGENCY ARANA 1 1 [facility] SEA DEPARTMEN T VISIT CORPORATI HIGH/URGE NT SEVERITY HOSPITAL [facility] - 1 1 Y INPATIENT HOSPITAL EMERGENCY 16479 [facility] 1 1 COVERAGE VISIT HIGH CORPORATI SEVERITY& THREAT FUNCJ CRITICAL [facility] ACCESS 1 1 HOSP [facility] H[facility]PITAL EMERGENCY 91275 [facility] 1 1 HOSP INC DEPARTMEN T VISIT MODERATE SEVERITY OFFICE 51163 [facility] ANSELMOPATIEN 1 1 O MEDICAL T VISIT 15 ASSOCIATE MINUTES CLINIC, [facility] 1 1 O MEDICAL HEALTH ASSOCIATE OFFICE 77671 JARRODITZEL ANSELMOPATIEN 1 1 O MEDICAL T VISIT 15 ASSOCIATE MINUTES CLINIC, [facility] 1 1 O MEDICAL HEALTH ASSOCIATE CLINIC, [facility] 1 1 O MEDICAL HEALTH ASSOCIATE OFFICE 53288 WOOICELL OUTPATIEN 1 1 O MEDICAL T VISIT 15 ASSOCIATE MINUTES CLINIC, [facility] 1 1 O MEDICAL HEALTH ASSOCIATE OFFICE 69848 WOO[facility]LL OUTPATIEN 1 1 O MEDICAL T VISIT 15 ASSOCIATE MINUTES CRITICAL [place] ACCESS 1 1 [facility]P [facility] OFFICE 75051 WOOICELL OUTPATIEN 1 1 O MEDICAL T VISIT 15 ASSOCIATE MINUTES CLINIC, [facility] 1 1 O MEDICAL HEALTH ASSOCIATE OFFICE 04594 WOOICELL OUTPATIEN 1 1 O MEDICAL T VISIT 15 ASSOCIATE MINUTES CLINIC, [facility] 1 1 O MEDICAL HEALTH ASSOCIATE EMERGENCY 32392 [place] 1 1 HOSP [facility] DEPARTMEN T VISIT HIGH/URGE NT SEVERITY EMERGENCY 81599 EMERGENCY [place] DEPT 1 1 COVERAGE ELZ VISIT HIGH CORPORATI SEVERITY& THREAT FUNCJ CRITICAL [facility] ACCESS 1 1 [facility] HOME PERSONAL HEALTH, 1 1 TOUCH OUTPATIEN HOME CARE T OF CLINIC, [facility] 1 1 O MEDICAL HEALTH ASSOCIATE OFFICE 53582 WOOICELL OUTPATIEN 1 1 O MEDICAL T VISIT 15 ASSOCIATE MINUTES EMERGENCY 26118 EMERGENCY KNIGHT TATUM 1 1 COVERAGE DEPARTMEN T VISIT CORPORATI MODERATE SEVERITY CRITICAL [place] ACCESS 1 1 HOSP [facility] CRITICAL [place] ACCESS 1 1 HOSP [facility] EMERGENCY 32768 [facility] 1 1 HOSP INC DEPARTMEN T VISIT MODERATE SEVERITY EMERGENCY 53327 EMERGENCY WO[place] JAM 1 1 COVERAGE DEPARTMEN T VISIT CORPORATI HIGH/URGE NT SEVERITY CR[facility]ICAL [place] ACCESS 1 1 [facility]P [facility] EMERGENCY 20568 EMERGENCY KNIGHT TATUM 1 1 COVERAGE DEPARTMEN T VISIT CORPORATI HIGH/URGE NT SEVERITY EMERGENCY 98289 [place] 1 1 HOSP INC DEPARTMEN T VISIT MODERATE SEVERITY OFFICE 35759 LONG OUTPATIEN 1 1 O MEDICAL T VISIT 15 ASSOCIATE MINUTES CLINIC, [facility] RURAL 1 1 O MEDICAL HEALTH ASSOCIATE CRITICAL [facility] ACCESS 1 1 HOSP [facility] EMERGENCY 46497 [place] 1 1 HOSP [facility] DEPARTMEN T VISIT MODERATE SEVERITY EMERGENCY 32654 EMERGENCY [place] COR DEPT 1 1 COVERAGE VISIT HIGH CORPORATI SEVERITY& THREAT FUNCJ OFFICE 36615 [facility] OUTPATIEN 1 1 O MEDICAL T VISIT 15 ASSOCIATE MINUTES CLINIC, [facility] 1 1 O MEDICAL HEALTH ASSOCIATE OFFICE 03373 [place] OUTPATIEN 1 1 O MEDICAL T VISIT 15 ASSOCIATE MINUTES CLINIC, [facility] 1 1 O MEDICAL HEALTH ASSOCIATE HOME PERSONAL HEALTH, 1 1 TOUCH OUTPATIEN HOME CARE T OF OFFICE 10564 BALJIT SMILEY OUTPATIEN 1 1 CONUNTY CONUNTY T VISIT 5 HEALTH HEALTH MINUTES DEPARTM DEPARTM OFFICE 03657 BALJIT SMILEY OUTPATIEN 1 1 CONUNTY CONUNTY T VISIT HEALTH HEALTH 10 DEPARTM DEPART MINUTES CLINIC, [facility] 1 1 O MEDICAL HEALTH ASSOCIATE OFFICE 26542 [place] OUTPATIEN 1 1 O MEDICAL T VISIT 15 ASSOCIATE MINUTES CRITICAL [facility] ACCESS 1 1 HOSP [facility] EMERGENCY 75123 EMERGENCY PROUDFOOT 1 1 COVERAGE GLE DEPARTMEN T VISIT CORPORATI HIGH/URGE NT SEVERITY OFFICE 15892 [place] OUTPATIEN 0 0 O MEDICAL T VISIT 15 ASSOCIATE MINUTES [facility] O MEDICAL HEALTH ASSOCIATE CLINIC, [facility] RURAL 0 0 O MEDICAL HEALTH ASSOCIATE OFFICE 99669 [place] OUTPATIEN 0 0 O MEDICAL T VISIT 15 ASSOCIATE MINUTES CLINIC, [facility] RURAL 0 0 O MEDICAL HEALTH ASSOCIATE OFFICE 57926 [place] OUTPATIEN 0 0 O MEDICAL T VISIT 15 ASSOCIATE MINUTES HOME PERSONAL HEALTH, 0 0 TOUCH OUTPATIEN HOME CARE T [facility] WILL[facility] - [address] [facility] EMERGENCY 57980 [place] 0 0 HOSP INC DEPARTMEN T VISIT HIGH/URGE NT SEVERITY CRITICAL [facility] ACCESS 0 0 [facility] CLINIC, [facility] RURAL 0 0 O MEDICAL HEALTH ASSOCIATE OFFICE 55028 [place] OUTPATIEN 0 0 O MEDICAL T VISIT 15 ASSOCIATE MINUTES OFFICE 74182 [facility] 0 O MEDICAL T VISIT 15 ASSOCIATE MINUTES CLINIC, [facility] RURAL 0 0 O MEDICAL HEALTH ASSOCIATE EMERGENCY 59579 [place] 0 0 HOSP INC DEPARTMEN T VISIT HIGH/URGE NT SEVERITY CRITICAL [place] ACCESS 0 0 HOSP [facility] EMERGENCY 28847 EMERGENCY DUKES JENNIFER DEPT 0 0 COVERAGE VISIT HIGH CORPORATI SEVERITY& THREAT [facility] CLINIC, [facility] RURAL 0 0 O MEDICAL HEALTH ASSOCIATE OFFICE 81529 [facility] 0 0 O MEDICAL T VISIT 15 ASSOCIATE MINUTES CRITICAL [facility] ACCESS 0 0 HOSP INC HOSPITAL EMERGENCY 96777 [place] 0 0 HOSP INC DEPARTMEN T VISIT MODERATE SEVERITY CRITICAL [place] ACCESS 0 0 HOSP INC HOSPITAL EMERGENCY 98671 [place] 0 0 HOSP INC DEPARTMEN T VISIT LIMITED/M INOR PROB CLINIC, [facility] RURAL 0 0 O MEDICAL HEALTH ASSOCIATE S OFFICE 05426 [facility] 0 O MEDICAL T VISIT 15 ASSOCIATE MINUTES S CLINIC, [facility] RURAL 0 0 O MEDICAL HEALTH ASSOCIATE S OFFICE 73043 [facility] 0 0 O MEDICAL T VISIT 15 ASSOCIATE MINUTES S CLINIC, [facility] RURAL 0 0 O MEDICAL HEALTH ASSOCIATE S OFFICE 11110 [facility] O MEDICAL T VISIT 15 ASSOCIATE MINUTES S CLINIC, [facility] RURAL 0 0 O MEDICAL HEALTH ASSOCIATE S EMERGENCY 40196 EMERGENCY [place] COR 0 0 COVERAGE DEPARTMEN T VISIT CORPORATI HIGH/URGE NT SEVERITY CR[facility]ICAL [facility] ACCESS 0 0 HOSP [facility] EMERGENCY 96246 [place] 0 0 HOSP INC DEPARTMEN T VISIT MODERATE SEVERITY OFFICE 90840 SHARAN TSANG OUTPATIEN 0 0 CASTRO Ibrahim T VISIT 15 MINUTES OFFICE 16735 SHARAN TSANG OUTPATIEN 9 9 CASTRO Ibrahim T VISIT 25 MINUTES OFFICE 85067 DAVEY HANNA 9 9 CARDIOLOG WOOD Jones T VISIT Y PSC 15 MINUTES OFFICE 74212 LONG MARISCAL 9 9 O MEDICAL T VISIT 15 ASSOCIATE MINUTES CLINIC, [facility] 9 9 O MEDICAL HEALTH ASSOCIATE HOSPITAL [place] [facility] - OTHER 9 9 HOSP INC OFFICE 18022 DAVEY WANG 9 9 O MEDICAL YANIRE T VISIT 15 ASSOCIATE MINUTES S CRITICAL [facility] ACCESS 9 9 HOSP [facility] EMERGENCY 52370 EMERGENCY [place], DEPT 9 9 COVERAGE ELZER T VISIT HIGH CORPORATI SEVERITY& ON INC THREAT FUN EMERGENCY 21655 [facility] 9 9 HOSP [facility] DEPARTMEN T VISIT HIGH/URGE NT SEVERITY CRITICAL [facility] ACCESS 9 9 [facility] 9 9 O MEDICAL HEALTH ASSOCIATE S OFFICE 72517 DAVEY WANG 9 9 O MEDICAL YANIRE T VISIT 15 ASSOCIATE [facility] - 9 9 [facility] CRITICAL [facility] ACCESS 9 9 HOSP [facility] EMERGENCY 60658 [facility]ERGENCY [place], DEPT 9 9 COVERAGE CASTRO R VISIT HIGH CORPORATI SEVERITY& ON INC THREAT FUN EMERGENCY 41458 [facility] 9 9 HOSP INC DEPARTMEN T VISIT LOW/MODER SEVERITY OFFICE 84882 DAVEY WANG 9 9 O MEDICAL YANIRE T VISIT 15 ASSOCIATE MINUTES CLINIC, [facility] 9 9 O MEDICAL HEALTH ASSOCIATE S OFFICE 41628 MILAYDS HOOK OUTPATIEN 9 9 NATHALIE ZELAYA T VISIT 10 MINUTES OFFICE 31615 DHS/CO [facility] MARISCAL 9 9 HEALTH CONUNTY T VISIT [facility] BANK ACCT DEPARTMEN T OFFICE 17578 DHS/CO BALJIT MARISCAL 9 9 HEALTH CONUNTY T VISIT [facility] 10 [facility] ACCT DEPARTMEN MINUTES T OFFICE 57963 DAVEY WANG 9 9 O MEDICAL YANIRE T VISIT 15 ASSOCIATE MINUTES S OFFICE 22292 DAVEY WANG 9 9 O MEDICAL YANIRE T VISIT 15 ASSOCIATE MINUTES S OFFICE 44998 DAVEY PERDUE 9 9 CARDIOLOG JIGARALED T VISIT Y 15 MINUTES OFFICE 85580 AIDEN WOLFE OUTPATIEN 9 9 ESA SEE T VISIT ER J ER J 10 MINUTES [facility]OSP[facility] 08772 LUPILLO WESLEY OUTPATIEN 9 9 RUSTY Boyd T VISIT 15 MINUTES HOSPITAL [place] - OTHER 8 8 HOSP [facility] OFFICE 82777 DAVEY WANG 8 8 O MEDICAL YANIRE T VISIT 15 ASSOCIATE MINUTES S CRITICAL [facility] ACCESS 8 8 HOSP [facility] OFFICE 89351 LUPILLO WESLEY OUTPATIEN 8 8 RUSTY OJEDA L T NEW 45 MINUTES CRITICAL [facility] ACCESS 8 8 HOSP [facility] OFFICE 45486 SHARAN TSANG OUTPATIEN 8 8 CASTRO Ibrahim T VISIT 25 MINUTES EMERGENCY 92390 [facility] 8 8 HOSP [facility] DEPARTMEN T VISIT MODERATE SEVERITY CRITICAL [facility] ACCESS 8 8 HOSP [facility] OFFICE 50578 DAVEY WANG 8 8 O MEDICAL YANIRE T VISIT 15 ASSOCIATE MINUTES S CRITICAL [facility] ACCESS 8 8 HOSP [facility] EMERGENCY 05217 EMERGENCY [place], DEPT 8 8 COVERAGE CASTRO R VISIT HIGH CORPORATI SEVERITY& ON INC THREAT [facility] EMERGENCY 50292 [facility] 8 8 HOSP INC DEPARTMEN T VISIT HIGH/URGE NT SEVERITY OFFICE 33232 DAVEY WANG 8 8 O MEDICAL YANIRE T VISIT 15 ASSOCIATE MINUTES HOSPITAL [place] - 8 8 [facility] EMERGENCY 89777 [facility] DEPT 8 8 HOSP INC VISIT HIGH SEVERITY& THREAT [facility] H[facility]PITAL [place] - 8 8 [facility] CRITICAL [facility] ACCESS 8 8 HOSP [facility] CLINIC, [facility] 8 8 O MEDICAL HEALTH ASSOCIATE S OFFICE 87673 [facility] 8 8 O MEDICAL T VISIT 15 ASSOCIATE MINUTES S CLINIC, [facility] 8 8 O MEDICAL HEALTH ASSOCIATE S OFFICE 31815 [facility] 8 8 O MEDICAL T VISIT 15 ASSOCIATE MINUTES S OFFICE 10262 SHARAN TSANG OUTPATIEN 8 8 CASTRO H CASTRO H T VISIT 15 MINUTES OFFICE 23104 DAVEY WANG 8 8 O MEDICAL YANIRE T VISIT 15 ASSOCIATE MINUTES S OFFICE 04518 DAVEY EPRDUE 8 8 CARDIOLOG KHALED T VISIT Y 15 MINUTES OFFICE 28970 [facility] OUTPATIEN 8 8 NATHALIE ZELAYA T VISIT 10 MINUTES OFFICE 27999 DAVEY PERDUE 8 8 CARDIOLOG KHALED T VISIT Y 15 MINUTES EMERGENCY 70422 [facility] 8 8 HOSP INC DEPARTMEN T VISIT HIGH/URGE NT SEVERITY CRITICAL [facility] ACCESS 8 8 HOSP INC HOSPITAL OFFICE 99199 DAVEY WANG 8 8 O MEDICAL YANIRE T VISIT 15 ASSOCIATE MINUTES S OFFICE 48756 DHS/CO BALJIT MARISCAL 8 8 HEALTH CONUNTY T VISIT 5 [facility] MINUTES BANK ACCT DEPARTMEN T OFFICE 42095 DHS/CO BALJIT MARISCAL 8 8 HEALTH CONUNTY T VISIT [facility] 10 BANK ACCT DEPARTMEN MINUTES T OFFICE 53890 DAVEY PERDUE 8 8 CARDIOLOG KHALED T VISIT Y 15 MINUTES OFFICE 66718 [facility] OUTPATIEN 8 8 NATHALIE ZELAYA T VISIT 10 MINUTES OFFICE 22658 CHIDI MARISCAL 8 8 CARDIOLOG CARDIOLOG T VISIT Y Y 15 MINUTES
--- OUTSIDE RECORDS SUMMARY | 2016-12-14 01:57 | External Medical Summary Rpt | CCD ---
Author Author , DONNIE Organization DONNIE Address Unknown Phone [email or web address] Care Team Providers Care Server Engineer Name Role Phone JIMI PENALOZA TAR, Unavailable Unavailable ABOU TREMAINE TAR SUSIE MAR, SUSIE MAR Unavailable Unavailable [facility] Unavailable Unavailable MANAGEMENT, [facility] Unavailable Unavailable MANAGEMENT,, [facility], DAVID RUTH, DAVID RUTH Unavailable Unavailable [facility] Unavailable Unavailable [facility], [facility], Unavailable Unavailable [facility] CHINTAN RESENDIZ Unavailable Unavailable YUNIOR NICHOLSON, OLIVIA LYN Unavailable Unavailable CARLITOS BAKER, Unavailable Unavailable CARLITOS BAKER [facility] Unavailable Unavailable MEDICAL GROUP, [facility] JOSE DE JESUS ROGER Unavailable Unavailable CESIA BEINEKE, BEINEKE Unavailable Unavailable BEINEKE CARLTON BEINEKE Unavailable Unavailable CARLTON BESSON, BESSON Unavailable Unavailable BHUTTA, DUKE J, Unavailable Unavailable BHUTTA, DUKE J [facility] Unavailable Unavailable ASSOC, [facility] JONES ALL, JONES ALL Unavailable Unavailable BROWN CARMINE, BROWN CARMINE Unavailable Unavailable [facility] Unavailable Unavailable SERVICE, [facility] Unavailable Unavailable SERVICE, [facility] DELILAH, ABDIAZIZ S, Unavailable Unavailable DEILLAH, ABDIAZIZ S [facility] Unavailable Unavailable SPECIALIS, [facility] Unavailable Unavailable ASSOC, [facility] CHOLERA AUSTIN, CHOLERA Unavailable Unavailable [facility] Unavailable Unavailable INC, [facility] [place] [facility], Unavailable Unavailable [...] [facility] Unavailable Unavailable ANKLE, [facility] AN[facility]LE SEBASTIÁN RAN, SEBASTIÁN [...] [facility] Unavailable Unavailable LLC, [employer] MEDICAL [facility]PPL[facility] [employer] [facility] Unavailable Unavailable LLC, [employer] MEDICAL SUPPL[employer] [facility]OVER[facility] Unavailable Unavailable CORPORATI, EMERGENCY COVERAGE [...] Unavailable CARLITOS SUBRAMANIAN, Unavailable Unavailable CARLITOS SUBRAMANIAN [facility] Unavailable Unavailable INC, [facility] Unavailable Unavailable HOSPITAL P, [facility] HAY, RUSTY L, HAY, Unavailable Unavailable RUSTY L GREGORY, GREGORY Unavailable Unavailable GREGORY, GREGORY Unavailable Unavailable HILTY HOL, HILTY HOL Unavailable Unavailable [facility], Unavailable Unavailable [facility] HOELLEIN AND, Unavailable Unavailable HOELLEIN AND KORTNEY, KORTNEY Unavailable Unavailable KORTNEY ELISA, KORTNEY ELISA Unavailable Unavailable [facility] Unavailable Unavailable CARE [facility], [facility] LOO IBR, LOO [...] FISTER CHRIS, Unavailable Unavailable CONCETTA FISTER CHRIS [facility], Unavailable Unavailable [facility] Unavailable Unavailable IMAGING ASS, [facility] CHIN TRENT, CHIN TRENT [...] Unavailable Unavailable HOLDINGS, [facility] Unavailable Unavailable AGENCY, [facility] Unavailable Unavailable AGENCY[facility] Unavailable Unavailable AGENCY ON AGING, [facility] ON [facility] Unavailable Unavailable HOSPITAL, [facility] Unavailable [facility]available [facility], [facility] Unavailable Unavailable [facility], [facility] LANGFELS SON, Unavailable Unavailable LANGFE SON DAMON JR DWI, DAMON Unavailable Unavailable JR DWI [facility] Unavailable Unavailable SUPPLY, [facility] Unavailable Unavailable SUPPLY INC., [employer] WOOD MCDONALD, Unavailable Unavailable WOOD MCDONALD LUKAT HENRY, LUKAT HENRY Unavailable Unavailable LUKAT HENRY, LUKAT HENRY Unavailable Unavailable [facility] Unavailable Unavailable INC, [facility] Unavailable Unavailable SERVICES, [facility] CASTRO ROCHA, Unavailable Unavailable CASTRO ROCHA, Unavailable Unavailable RALPH JENKINS, Unavailable Unavailable RALPH ALFARO JR CLI, Unavailable Unavailable [facility]OLINE KING CLI RAMEY JR CLI, Unavailable Unavailable RAMEY JR CLI URENA STAR, URENA STAR Unavailable Unavailable URENA STAR, URENA STAR Unavailable Unavailable HARRIS DEN, Unavailable Unavailable STEVEN WHALEY AUSTIN, Unavailable Unavailable REBEL AVLIA [address] [place] [address], Unavailable Unavailable MD2Chaitanya [facility] MED[facility] FLORIN, MEDROSO Unavailable Unavailable FLORIN [facility]available Unavailable SERV NUT STEAMER R, [facility] Unavailable Unavailable SERV NUT STEAMER R, [facility] WOOD CHOLER[facility] DO Unavailable Unavailable INC, [facility] RONALD WOLFE Unavailable Unavailable AIDEN Manuel CHRISTOPHER J [facility] Unavailable Unavailable [facility]OC LA, [facility] Unavailable Unavailable [facility]OC LA, [facility] Unavailable [facility]available ASSOC LABORATORY, [facility] Unavailable Unavailable ASSOCIATE, [facility] Unavailable Unavailable ASSOCIATES, [facility], Unavailable Unavailable [facility] NATHALIE HOOK, Unavailable Unavailable NATHALIE [...] Unavailable [facility] Unavailable [facility]available [facility], [facility] RASLAU FLA, RASLAU Unavailable Unavailable FLA TAVARES MAY, TAVARES MAY Unavailable Unavailable REKHRAJ, SADAF, Unavailable Unavailable REKHRAJ, SADAF KIMBLE GRE, KIMBLE Unavailable Unavailable GRE ARANA SEA, ARANA Unavailable Unavailable SEA [facility], [facility] Unavailable Unavailable LICO JENIFFER, LICO JENIFFER Unavailable Unavailable [facility] Unavailable Unavailable ENTERPRISES, [facility] EN[facility]PR[facility]ES [facility], [facility] Unavailable Unavailable [facility] Unavailable Unavailable PHYSICIA, [facility] FERNANDEZ JAY JAY, FERNANDEZ JAY [...] Unavailable Unavailable EQUIPME, [facility] Unavailable Unavailable EMERGENCY PHYS, [facility] EMERGENCY PHYS [facility] Unavailable Unavailable PHYSICIAN SERVI, [facility] PHYSICIAN SERVI SPORTS MEDICINE & [...] [place] MEI RENATO, MEI RENATO Unavailable Unavailable [facility], Unavailable Unavailable [facility], [place] [facility] [facility], [place] Unavailable [facility]available [facility] H[facility], Unavailable Unavailable [facility] HOSP [facility], [facility] Unavailable Unavailable HOSPITAL-HOSPITALIS, [facility] H[facility]PITAL[facility]PITAL[facility] Unavailable [facility]available DEPARTM, [facility] Unavailable Unavailable DEPARTM, [facility] Unavailable Unavailable DEPARTMENT, [facility] DEPARTMENT [facility], Unavailable Unavailable [facility]; Unavailable Unavailable Margherita InventionsICE, [facility]; [facility]; Unavailable Unavailable MONTICEL, [facility]; [facility] Unavailable Unavailable [facility], [facility] [address] Unavailable Unavailable BREE [...] Provider Status B351 TINEA 08-02-2016 GREGORY UNGUIUM [id number] PAIN IN 08-02-2016 GREGORY RIGHT TOES [id number] PAIN IN 08-02-2016 GREGORY LEFT TOES E119 TYPE 2 06-03-2016 [employer] DIABETES MEDICAL MELLITUS SUPPLY [employer] WITHOUT COMPLICATIO NS I4891 UNSPECIFIED 04-19-2016 [facility] ATRIAL SERV FIBRILLATIO [facility] N R9431 ABNORMAL 04-19-2016 [facility] MEDICAL ELECTROCARD SERV IOGRAM [facility] M1711 UNILATERAL 04-16-2016 [facility] OSTE[facility] TIS RIGHT KNEE M1712 UNILATERAL 04-16-2016 [facility] O[facility]ARTHRI [facility] TIS LEFT KNEE [id number] EFFUSION 04-16-2016 [facility] LEFT KNEE [facility] I482 CHRONIC 03-25-2016 [facility] ATRIAL PHYSICIANS, FIBRILLATIO [facility] N R55 SYNCOPE AND 03-25-2016 [facility] COLLAPSE PHYSICIANS, [facility] Z0389 ENCOUNTER 03-25-2016 PSYCHI[facility]RIC MEDICAL SUSPCT DZ & IMAGING ASS COND RULED OUT I959 HYPOTENSION 02-24-2016 [facility]ING ASS R51 HEADACHE 02-24-2016 [facility] R079 CHEST PAIN 12-06-2015 [facility] UNSPECIFIED [facility] P [id number] CONTUSION 12-06-2015 [facility] INITIAL [facility]OSPITAL P ENCOUNTER E867RGR FALL SAME 12-06-2015 [facility] LEVL [facility] TR[facility] W/O HOSPITAL P SUB STRIK OBJ INIT Q83715 UNS PLACE 12-06-2015 [facility] UNS NON [facility] P PLACE OF OCCUR EXT I10 ESSENTIAL 09-19-2015 [facility] PRIMARY MEM HOSP HYPERTENSIO INC N K319 DISEASE OF 09-19-2015 [facility] STOMACH AND MEM HOSP DUODENUM INC UNSPECIFIED K5900 CONSTIPATIO 09-19-2015 [facility] N MEM HOSP UNSPECIFIED INC N390 URINARY 09-19-2015 [facility] TRACT MEM HOS[facility] INFECTION INC SITE NOT SPECIFIED R630 ANOREXIA 09-19-2015 [facility] R634 ABNORMAL 09-19-2015 [facility] WEIGHT LOSS MEM HOSP INC M68700 PERSONAL 09-19-2015 [facility] HISTORY OF MEM HOSP NICOTINE INC DEPENDENCE R69 ILLNESS 07-06-2015 [facility] UNSPECIFIED TRANSPORTAT ION SER [id number] DSPL OBL FX 07-06-2015 [place] SHAFT LT MEDICAL FIBULA IMAGING ASS SUBSQT CLOS FX RTN [id number] OT FX 07-06-2015 [facility] UPPER & MEM HOSP LOWER UNS INC FIBULA INIT ENC CLOS FX [id number] [facility] FX 06-02-2015 [facility] UPPER & HOME LOWER LT MEDICAL FIBULA INIT EQUIPME ENC CLOS FX [id number] DISPL 05-31-2015 [place] SPIRAL FX MEDICAL SHAFT LT IMAGING ASS FIB SUBS CLOS FX RTN [id number] OT FX 05-31-2015 [facility] UPPER & PHYSICIANS LOWER LT GROUP FIB SUBSQT CLOS RTN HEAL [id number] UNSPECIFIED 05-17-2015 [facility] FALL PHYSICIANS INITIAL GROUP ENCOUNTER L76896 PAIN IN 05-14-2015 [place] LEFT ANKLE MEDICAL IMAGING ASS H26158 PAIN IN 05-14-2015 [place] LEFT LOWER MEDICAL LEG IMAGING ASS K86590 PAIN IN 05-14-2015 [place] LEFT FOOT MEDICAL IMAGING ASS M7989 OTHER 05-14-2015 [place] SPECIFIED MEDICAL SOFT TISSUE IMAGING ASS DISORDERS R600 LOCALIZED 05-14-2015 [facility] EDEMA [facility] SERVICE E039 HYPOTHYROID 05-08-2015 WOOD ISM CHOLERA DO UNSPECIFIED INC I639 CEREBRAL 05-05-2015 [place] INFARCTION MEDICAL UNSPECIFIED IMAGING ASS R4182 ALTERED 05-05-2015 [place] MENTAL MEDICAL STATUS IMAGING ASS UNSPECIFIED G9340 ENCEPHALOPA 04-27-2015 [facility] M179 OSTEOARTHRI 04-25-2015 [facility] TIS OF KNEE RADIOLOGY ASSOC UNSPECIFIED C85796 PAIN IN 04-25-2015 [facility] LEFT HIP RADIOLOGY ASSOC C93220 SPONDYLOSIS 04-25-2015 [facility] W/O RADIOLOGY MYELOPATH/R ASSOC ADICULOPATH Y LUMB RGN M545 LOW BACK 04-25-2015 [facility] PAIN RADIOLOGY ASSOC E74992 PAIN IN 04-25-2015 [facility] LEFT LEG HEALTH MEDICAL GROUP G9341 METABOLIC 04-23-2015 [facility] ENCEPHALOPA HEALTH THY MEDICAL GROUP I313 PERICARDIAL 04-22-2015 [facility] EFFUSION HEALTH NONINFLAMMA MEDICAL TORY GROUP I340 NONRHEUMATI 04-22-2015 [facility] C MITRAL HEALTH VALVE MEDICAL INSUFFICIEN GROUP CY I361 NONRHEUMATI 04-22-2015 [facility] C TRICUSPID HEALTH VALVE MEDICAL INSUFFICIEN GROUP CY I371 NONRHEUMATI 04-22-2015 [facility] C PULMONARY HEALTH VALVE MEDICAL INSUFFICIEN GROUP CY I6523 OCCLUSION & 04-22-2015 [facility] STENOSIS HEALTH BILATERAL MEDICAL CAROTID GROUP ARTERIES R479 UNSPECIFIED 04-21-2015 [facility] SPEECH RADIOLOGY DISTURBANCE ASSOC S R531 WEAKNESS 04-21-2015 [facility] ASSOC [id number] UNS FB 04-21-2015 [facility] LARYNX RADIOLOGY CAUSING ASSOC ASPHYXIATIO N INITIAL ENC P18419 CORTICAL 03-18-2015 SCIFRES ANG AGE-RELATED CATARACT BILATERAL H5202 HYPERMETROP 03-18-2015 SCIFRES ANG IA LEFT EYE H5203 HYPERMETROP 03-18-2015 SCIFRES ANG IA BILATERAL K99712 REGULAR 03-18-2015 SCIFRES ANG ASTIGMATISM BILATERAL E559 VITAMIN D 03-17-2015 COMBINED DEFICIENCY PHYSICIANS UNSPECIFIED [place] E785 HYPERLIPIDE 03-17-2015 COMBINED NAYANA PHYSICIANS UNSPECIFIED [place] 4359 UNSPECIFIED 11-02-2014 [place] MEDICAL TRANSIENT SERV CEREBRAL FOUNDATION ISCHEMIA 71937 OTHER 11-02-2014 [facility] ALTERATION AMBULANCE [place] [address] ATRIAL 10-19-2014 [place] MEDICAL FIBRILLATIO SERV N FOUNDATION 29477 NONSPECIFIC 10-19-2014 [place] MEDICAL ABNORMAL SERV ELECTROCARD FOUNDATION IOGRAM 64422 DIAB W/O 10-12-2014 [facility] COMP TYPE [place] II/UNS NOT LLC STATED UNCNTRL 4019 UNSPECIFIED 10-12-2014 [facility] ESSENTIAL [facility] HYPERTENSIO LLC N 20540 HYPERTONICI 10-12-2014 [facility] TY OF [place] BLADDER LLC 1101 DERMATOPHYT 09-29-2014 [place] OSIS OF FOOT & NAIL ANKLE CENT 65252 DIAB 09-29-2014 [place] W/PERIPH FOOT & CIRC D/O ANKLE CENT TYPE II/UNS NOT UNCNTRL 7295 PAIN IN 09-29-2014 [facility] SOFT FOOT & TISSUES OF ANKLE CENT LIMB 58471 09-24-2014 [facility] ENTERPRISES 7840 HEADACHE 08-29-2014 EMERGENCY COVERAGE CORPORATI 41087 CHEST PAIN 08-29-2014 [facility] UNSPECIFIED HOSPITAL-HO SPITALIS 2724 OTHER AND 08-17-2014 MD2U UNSPECIFIED [facility] HYPERLIPIDE NAYANA 92428 ALTERED 07-17-2014 [facility] MENDOZA MENTAL EMS STATUS 41828 ICI OTH&UNS 07-17-2014 [facility] NATR W/O EMS OPEN ICW UNS STATE CONSC 90682 ACUTE 06-26-2014 [facility] RESPIRATORY MARYAM FAILURE BAR PHYSICIA 9721 POISN 06-26-2014 [facility] CARDIOTONIC MARYAM BAR GLYCOSIDES& PHYSICIA RX SIMILAR ACTION 496 CHRONIC 06-23-2014 [facility] [place] AIR[facility]AY RADIOLOGY OBSTRUCTION NEC 22415 OTHER 06-22-2014 [facility] SPECIFIED RADIOLOGY CARDIAC ASSOC DYSRHYTHMIA S 4279 UNSPECIFIED 06-22-2014 [facility] CARDIAC FIRE/EMS DYSRHYTHMIA 5180 PULMONARY 06-20-2014 [facility] COLLAPSE RADIOLOGY ASSOC 586 UNSPECIFIED 06-19-2014 CARDIO AND RENAL ELECTRO FAILURE SPECIALIS 5119 UNSPECIFIED 06-18-2014 [facility] PLEURAL RADIOLOGY EFFUSION ASSOC 36716 DIAB W/O 06-14-2014 KAROLINE KING MENTION CLI COMP TYPE II/UNS TYPE UNCNTRL 4011 ESSENTIAL 06-14-2014 KAROLINE KING HYPERTENSIO CLI N, BENIGN 18722 SINOATRIAL 06-14-2014 [facility] DYSFUNCTION 5849 ACUTE 06-14-2014 KAROLINE KING KIDNEY CLI FAILURE UNSPECIFIED E9421 CARDIOTONIC 06-14-2014 [facility] GL[place]OS[place] [address] OTHER 06-12-2014 [facility] NONSPECIFIC RADIOLOGY ABNORMAL ASSOC FINDING OF LUNG FIELD 05780 OTHER 06-10-2014 [facility] DISEASES OF RADIOLOGY LUNG NOT ASSOC ELSEWHERE CLASSIFIED V5882 ENCOUNTER 06-10-2014 [facility] FITTING&ADJ RADIOLOGY ASSOC NON-VASCULA R CATHETER NEC 49713 METABOLIC 06-09-2014 [facility] ENCEPHALOPA [facility] THY [facility]IONAL [facility]OS 4240 MITRAL 06-09-2014 [facility] DISORDERS 4241 AORTIC 06-09-2014 [facility] DISORDERS 4242 TRICUSPID 06-09-2014 [facility] DISORDERS SPEC NONRHEUMATI C 68851 ATRIAL 06-09-2014 [facility] FLUTTER [facility] 4299 UNSPECIFIED 06-09-2014 [facility] HEART [facility]POR[facility] DISEASE 21392 METHICILLIN 06-09-2014 [facility] RESISTANT [facility] PNEUMONIA REGIONAL D/T STAPH HOS AUREUS 00827 OTHER SHOCK 06-09-2014 [facility] MENTION OF REGIONAL TRAUMA HOS 48403 OTHER 06-09-2014 [facility] DYSPNEA AND RADIOLOGY ASSOC RESPIRATORY ABNORMALITI ES 7907 BACTEREMIA 06-09-2014 [facility] REGIONAL HOS 9778 POISONING 06-09-2014 [facility] OTHER SPEC MEDICAL DRUGS&MEDIC INAL SUBSTANCES 9779 POISONING 06-09-2014 [facility] UNSPECIFIED EMS DRUG/MEDICI NAL SUBSTANCE 9899 TOX EFF UNS 06-09-2014 [facility] SBSTNC RADIOLOGY CHIEFLY ASSOC NONMEDICINA L SRC E9505 LUCERO&SLF-INF 06-09-2014 [facility] LICT POISN MEDICAL UNS RX/MEDICINA L SBSTNC V5881 FITTING AND 06-09-2014 [facility] ADJUSTMENT RADIOLOGY OF ASSOC VASCULAR CATHETER 250 DIABETES 05-24-2014 [facility] MELLITUS [facility] AREA AGENCY 84708 ATHEROSLERO 05-14-2014 [facility] NATV ART FOOT & EXTREM ANKLE CENT W/INTERMIT CLAUDICAT 36608 MORBID 05-13-2014 [facility] OBESITY CARDIOLOGY 97766 UNSPECIFIED 05-13-2014 [facility] SLEEP CARDIOLOGY APNEA 78171 PRECORDIAL 05-13-2014 [facility] PAIN CARDIOLOGY 02477 HYPERSOMNIA 05-10-2014 THE LUNG AND SLEEP UNSPECIFIED DISORDER 17685 OTHER SLEEP 05-10-2014 THE LUNG AND SLEEP DISTURBANCE DISORDER S 4589 UNSPECIFIED 04-08-2014 [facility] HYPOTENSION REG HOSPITAL V5869 LONG-TERM 04-08-2014 [facility] (CURRENT) [facility] USE OF REG OTHER HOSPITAL MEDICATIONS E9504 LUCERO&SLF-INF 04-07-2014 [facility] LICT POISN N EMERGENCY OTH PHYS RX&MEDICINA L SBSTNC 71583 SPASM OF 03-15-2014 EMERGENCY MUSCLE COVERAGE CORPORATI 7802 SYNCOPE AND 03-15-2014 [facility] COLLAPSE EMS 8242 CLOSED 03-15-2014 [facility] FRACTURE OF IMAGING & LATERAL INTERVENTI MALLEOLUS 78390 UNSPECIFIED 03-15-2014 [facility] SITE OF MEDICAL ANKLE LLC; SPRAIN AND MONTICEL STRAIN 920 CONTUSION 03-15-2014 EMERGENCY OF FACE COVERAGE SCALP AND CORPORATI NECK EXCEPT EYE 07661 HEAD 03-15-2014 EMERGENCY INJURY, COVERAGE UNSPECIFIED CORPORATI V714 OBSERVATION 03-15-2014 [facility] FOLLOWING IMAGING & OTHER INTERVENTI ACCIDENT 86642 UNSPECIFIED 03-11-2014 [facility] VIRAL HOSP INC INFECTION IN CCE & UNS SITE 99681 NAUSEA WITH 03-11-2014 [facility] VOMITING MARINE PILOT 47785 VOMITING 03-11-2014 EMERGENCY ALONE COVERAGE CORPORATI 52732 CORONARY 03-02-2014 [facility] ATHEROSCLER CARDIOLOGY [place] CORONARY ARTERY 11390 SHORTNESS 03-02-2014 [facility] OF BREATH CARDIOLOGY 7140 RHEUMATOID 02-16-2014 P[place] [address] MIXED 02-16-2014 PERSONAL INCONTINENC TOUCH HOME E URGE AND CARE OF STRESS 35074 UNSPECIFIED 01-12-2014 [facility] MEDICAL CONSTIPATIO ASSOCIATE N 7881 DYSURIA 01-12-2014 [facility] MARINE PILOT 28936 OBSTRUCTIVE 01-10-2014 [facility] SLEEP MEDICAL APNEA [facility]; [facility] 50860 HYPOXEMIA 01-10-2014 [facility] MEDICAL [facility]; [facility] 03375 UNSPECIFIED 12-10-2013 [facility] HENRY TINNITUS 20826 SENSORINEUR 12-10-2013 LUKAT HENRY AL HEARING LOSS BILATERAL 3899 UNSPECIFIED 12-10-2013 EAR NOSE HEARING AND THROAT LOSS SPECIALI 2449 UNSPECIFIED 11-21-2013 [place] [facility] HYPOTHYROID FOUNDATION ISM 4139 OTHER AND 11-20-2013 [place] MEDICAL UNSPECIFIED SERV ANGINA FOUNDATION PECTORIS 4293 CARDIOMEGAL 11-20-2013 [place] [facility] Y SERV [facility]ATION 4471 STRICTURE 11-20-2013 [place] [facility]ICAL OF ARTERY SERV FOUNDATION 16330 OTHER 11-20-2013 [facility] MALAISE AND N PHYSICIAN FATIGUE SERVI 7869 OTH 11-20-2013 [place] [facility] SYMPTOMS SERV INVOLVING FOUNDATION RESPIRATORY SYSTEM&CHES T 31431 OTHER 11-19-2013 [facility] CONVULSIONS EMS 7011 ACQUIRED 11-10-2013 [place] KERATODERMA FOOT & ANKLE CENT 68559 UNSPECIFIED 11-09-2013 EAR NOSE OTALGIA AND THROAT SPECIALI 21845 UNSPECIFIED 11-09-2013 E[facility] NOSE AND THROAT TEMPOROMAND SPECIALI IBULAR JOINT DISORDERS 92782 DIAB 10-27-2013 [place] W/NEURO FOOT & MANIFESTS ANKLE CENT TYPE II/UNS NOT UNCNTRL V741 SCREENING 08-19-2013 [facility] EXAMINATION CONUNTY FOR HEALTH PULMONARY DEPARTM TUBERCULOSI S 7850 UNSPECIFIED 05-17-2013 [facility] RADIOLOGY TACHYCARDIA ASSOC 4254 OTHER 05-13-2013 [facility] PRIMARY CARDIOLOGY CARDIOMYOPA HILDA 4619 ACUTE 05-01-2013 KATHERYN SINUSITIS, MEDICAL UNSPECIFIED ASSOCIATE 0088 INTESTINAL 04-24-2013 [facility] INFECTION HOSP INC DUE TO OTHER ORGANISM NEC 06121 UNS 04-24-2013 [facility] GASTRITIS&G EMS ASTRODUODIT IS W/O MENTION HEMORR V5867 LONG-TERM 04-24-2013 [facility] USE OF HOSP INC INSULIN 4658 ACUTE URIS 04-03-2013 KATHERYN OF OTHER MEDICAL MULTIPLE ASSOCIATE SITES 24216 FEVER 04-03-2013 KATHERYN UNSPECIFIED MARINE PILOT 3804 IMPACTED 04-01-2013 KATHERYN CERUMEN MARINE PILOT 4660 ACUTE 01-01-2013 KATHERYN BRONCHITIS MARINE PILOT 2720 PURE 11-05-2012 KATHERY[place] [address] UNSPECIFIED 06-24-2012 [facility] MEDICINE & ARTHROPATHY ORTHOPAEDI , LOWER LEG 10966 OSTEOARTHRO 06-13-2012 AKTHERYN Kamara UNSPEC MEDICAL WHETHER ASSOCIATE GEN/LOC UNSPEC SITE 4550 INTERNAL 03-12-2012 [facility] HEMORRHOIDS HOSP INC WITHOUT MENTION COMP 02407 DIVERTICULO 03-12-2012 [facility] SIS OF HOSP INC COLON 75705 ABDOMINAL 03-12-2012 URENA STAR PAIN RIGHT LOWER QUADRANT 20498 ABDOMINAL 03-12-2012 URENA STAR PAIN, LEFT LOWER QUADRANT V7651 SPECIAL 03-12-2012 [facility] SCREENING HOSP INC FOR MALIGNANT NEOPLASMS COLON 82382 PAIN IN 02-18-2012 KATHERYN JOINT, SITE MARINE PILOT UNSPECIFIED 7810 ABNORMAL 01-30-2012 [facility] INVOLUNTARY HOSP INC MOVEMENTS V5861 LONG-TERM 12-25-2011 KATHERYN (CURRENT) MEDICAL USE OF ASSOC LA ANTICOAGULA NTS 7804 DIZZINESS 10-31-2011 KATHERYN AND MEDICAL GIDDINESS ASSOCIATE 2722 MIXED 08-30-2011 [facility] HYPERLIPIDE CARDIOLOGY NAYANA 60637 OSTEOARTHRO 08-29-2011 ESSIE CALL SIS UNSPEC WHETHER GEN/LOC LOWER LEG 83793 PAIN IN 08-27-[address] [facility] [address] 4919 UNSPECIFIED 07-29-2011 [facility] CHRONIC MEDICAL BRONCHITIS EQUIPMENT 412 OLD 07-23-2011 [facility] MYOCARDIAL [place] [facility] 05548 EFFUSION OF 07-23-2011 [facility] RADIOLOGY JOINT ASSOC 9130 ELB 07-23-2011 [facility] FORARM&WRST [place] [facility] ABRASION/FR HOS ICION BURN W/O INF 9160 HIP THI 07-23-2011 [facility] LEG&ANK [place] ABRASION/FR REGIONAL ICION BURN HOS W/O INF 9190 ABRASION/FR 07-23-2011 [facility] ICION BURN EMERGENCY OTH MX&UNS SERVICES SITE W/O INF 53928 CONTUSION 07-23-2011 [facility] OF FOREARM [place] [facility] 64701 CONTUSION 07-23-2011 [facility] OF [facility]NEE EMERGENCY SERVICES E8859 FALL FROM 07-23-2011 [facility] OTHER EMERGENCY SLIPPING SERVICES TRIPPING OR STUMBLING E8888 OTHER FALL 07-23-2011 [facility] EMS V1254 PERSONAL HX 07-23-2011 [facility] TIA & CI [place] W/O REGIONAL RESIDUAL HOS DEFICITS 64656 ASTHMA, 07-21-2011 [facility] UNSPECIFIED HOSP INC , UNSPECIFIED STATUS 63464 OTHER CHEST 07-21-2011 [facility] PAIN EMS V5883 ENCOUNTER 07-21-2011 [facility] FOR HOSP INC THERAPEUTIC DRUG MONITORING 2869 OTHER AND 07-15-2011 [place] UNSPECIFIED MEDICAL GROUP COAGULATION [place] DEFECTS 24650 PRIMARY 07-12-2011 MICHELLE KING LOCALIZED [place] OSTEOARTHRO SIS LOWER LEG 4779 ALLERGIC 06-14-2011 KATHERYN RHINITIS MEDICAL CAUSE ASSOCIATE UNSPECIFIED 4610 ACUTE 06-07-2011 KATHERYN MAXILLARY MEDICAL SINUSITIS ASSOCIATE 13768 OTHER 06-04-2011 TSANG JOHANNE MUCOPURULEN T CONJUNCTIVI TIS 2727 LIPIDOSES 05-28-2011 [facility] 7820 DISTURBANCE 05-28-2011 [facility] OF SKIN [facility] 1330 SCABIES 03-06-2011 KATHERYN MARINE PILOT 4378 OTHER 02-07-2011 [place] [facility] [place]-DEFINED SERV FOUNDATIO CEREBROVASC ULAR DISEASE 6829 CELLULITIS 01-30-2011 [facility] AND ABSCESS MEDICAL OF ASSOCIATE UNSPECIFIED SITE 02935 TRANSIENT 12-26-2010 [place] [facility] ALTERATION SERV OF FOUNDATIO AWARENESS 48512 OTHER 12-23-2010 [place] [facility] CONDITIONS SERV OF BRAIN FOUNDATIO 4371 OTH 12-23-2010 [place] [facility] GENERALIZED SERV ISCHEMIC FOUNDATIO CEREBROVASC ULAR DISEASE 5990 URINARY 12-23-2010 [facility] INFECTION SITE NOT SPECIFIED 436 ACUTE BUT 12-22-2010 [facility] ILL-DEFINED EMS CEREBROVASC ULAR DISEASE 24005 FACIAL 12-22-2010 [facility] WEAKNESS HOSP INC V7612 OTHER 09-26-2010 [facility] SCREENING HOSP INC MAMMOGRAM 2859 UNSPECIFIED 09-04-2010 [facility] ANEMIA HOSP INC 12007 DISPLCMT 08-23-2010 [facility] LUMBAR RADIOLOGY INTERVERT ASSOC DISC W/O MYELOPATHY 7245 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-2010 [facility] MARINE PILOT 7242 LUMBAGO 08-21-2010 [facility] HOSP INC 01256 CONTUSION 08-15-2010 [facility] OF BACK HOSP INC E8889 UNSPECIFIED 08-15-2010 [facility] FALL HOSP INC 06297 OBSTRUCTIVE 08-07-2010 [facility] BRONCHITIS SPITALIS WITH EXACERBATIO N 486 PNEUMONIA, 08-06-2010 EMERGENCY ORGANISM [facility] UNSPECIFIED CORPORATI 26501 WHEEZING 08-06-2010 [facility] CORPORATI 7862 COUGH 07-28-2010 [facility] INTERVENTI 7231 CERVICALGIA 05-18-2010 [facility] MARINE PILOT 5718 OTHER 03-28-2010 [facility] CHRONIC IMAGING & NONALCOHOLI INTERVENTI C LIVER DISEASE 5968 OTHER 03-28-2010 [facility] SPECIFIED IMAGING & DISORDERS INTERVENTI OF BLADDER 68956 NAUSEA 03-28-2010 [facility] ALONE EMS 88179 ABDOMINAL 03-28-2010 [facility] PAIN, HOSP INC UNSPECIFIED SITE 4111 INTERMEDIAT 12-30-2009 [facility]ON[facility] [facility] 63853 UNSPECIFIED 12-30-2009 [facility] CEREBRAL IMAGING & ARTERY INTERVENTI OCCLUSION W/INFARCT 80732 OTH 12-30-2009 [facility] ETAL SX SPITALIS REFERABLE LIMBS OTH 7851 PALPITATION 12-29-2009 [facility] S HOSP INC 76623 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 [facility] 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 91098 ABDOMINAL 11-06-2009 [facility] PAIN, HOSP INC GENERALIZED 490 BRONCHITIS 07-18-2009 [facility] NOT IMAGING & SPECIFIED INTERVENTIO ACUTE OR N PLLC CHRONIC 4439 UNSPECIFIED 06-02-2009 [facility] VASCULAR DISEASE 8449 SPRAIN&STRA 04-11-2009 [facility] IN OF HOSP INC UNSPECIFIED SITE OF KNEE&LEG 8472 LUMBAR 04-11-2009 [facility] SPRAIN AND HOSP INC STRAIN 54080 HORDEOLUM 03-08-2009 SHARAN, EXTERNUM CASTRO Ibrahim 73267 UNSPECIFIED 02-02-2009 [facility] TSANG ASTIGMATISM 3674 PRESBYOPIA 02-02-2009 [facility] TSANG 3688 OTHER 02-02-2009 SHARAN, SPECIFIED CASTRO Ibrahim VISUAL DISTURBANCE S 09170 OSTEOARTHRO 11-25-2008 [place] SIS UNSPEC FOOT AND WHETHER ANKLE GEN/LOC ANK&FOOT 08618 OTHER JOINT 11-25-2008 [place] FOOT AND DERANGEMENT ANKLE NEC ANKLE AND FOOT 7336 TIETZES 10-21-2008 EMERGENCY DISEASE [facility] [employer] INC 35936 PAINFUL 10-21-2008 EMERGENCY RESPIRATION [facility] [employer] INC 4548 VARICOSE 10-05-2008 [facility] VEINS LOWER RADIOLOGY ASSOC EXTREMITIES W/OTH COMPS 88574 INJURY OF 10-02-2008 [facility] FACE AND IMAGING & NECK OTHER INTERVENTIO AND N PLLC UNSPECIFIED E8881 FALL 10-02-2008 [facility] RESULTING HOSP INC IN STRIKING AGAINST OTHER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 HEALTH TRANSPORT ENTERPRIS MANAGEMEN ATION; ES T, TAXI NONEMERGE A0100 [facility] 4 TRANS[facility] HEALTH TRANSPORT ENTERPRIS MANAGEMEN ATION; ES T, TAXI NONEMERGE A0100 [facility] 4 TRANS[facility] HEALTH TRANSPORT ENTERPRIS MANAGEMEN ATION; ES T, TAXI OBSERVATI 18492 MALLY AMEZQUITA ON CARE 4 MEDICAL AND DISCHARGE SERV FOUNDATIO MANAGEMEN N T INITIAL 65060 [place] [facility] OBSERVATI 4 JACQUIE ON PHYSICIAN CARE/DAY SERVI 70 MINUTES ECHO 89848 MALLY WOODSON TTHRC R-T 4 MEDICAL ALI 2D SERV W/WOM-MOD FOUNDATIO E COMPL N SPEC&COLR D ECG 65069 MALLY MONACO CHI ROUTINE 4 MEDICAL ECG SERV W/LEAST FOUNDATIO 12 LDS N I&R ONLY RADIOLOGI 02890 [place] [facility] C 4 MEDICAL AYA MAR EXAMINATI SERV ON CHEST [place] [address] PREMIER SUSIE MAR HEAD/BRAI 4 IMAGING & N W/O CONTRAST INTERVENT MATERIAL I AMB A0427 [facility] SERVICE 4 EMS EMS ALS EMERGENCY TRANSPORT LEVEL 1 NONEMERGE A0100 [facility] 4 TRANS[facility] HEALTH TRANSPORT ENTERPRIS MANAGEMEN ATION; ES T, TAXI GROUND A0425 [facility] MILEAGE 4 EMS EMS PER STATUTE MILE NONEMERGE A0100 [facility] 4 TRANS[facility] HEALTH TRANSPORT ENTERPRIS MANAGEMEN ATION; ES T, TAXI DISPBL T4535 PERSONAL PERSONAL LINER/JARED 4 TOUCH TOUCH ELD/GUARD HOME FCI CARE /PAD/UNDG OF OF RMNT INCONT EA NONEMERGE A0100 [facility] 4 [facility] HE[facility] TRANSPORT ENTERPRIS MANAGEMEN ATION; ES T, TAXI HOME CARE S5108 [facility] [address] [facility] D AREA D AREA CARE AGENCY AGENCY CLIENT PER 15 MIN NONEMERGE A0100 [facility] 4 TRANS[facility] HEALTH TRANSPORT ENTERPRIS MANAGEMEN ATION; ES T, TAXI NONEMERGE A0100 [facility] TRANSIT HEALTH TRANSPORT ENTERPRIS MANAGEMEN ATION; ES T, TAXI NONEMERGE A0100 [facility] 4 TRANSIT HEALTH TRANSPORT ENTERPRIS MANAGEMEN ATION; ES T, TAXI NONEMERGE A0100 [facility] 4 TRANSIT HEALTH TRANSPORT ENTERPRIS MANAGEMEN ATION; ES T, TAXI NONEMERGE A0100 [facility] 4 TRANSIT HEALTH TRANSPORT ENTERPRIS MANAGEMEN ATION; ES T, TAXI O2 CONC 1 E1390 [facility] 4 MEDICAL MEDICAL 85%/>02 [facility]; [facility]; [facility] AT [facility] FLW RATE NONEMERGE A0100 [facility] 4 TRANSIT HEALTH TRANSPORT ENTERPRIS MANAGEMEN ATION; ES T, TAXI NONEMERGE A0100 [facility] 4 TRANSIT HEALTH TRANSPORT ENTERPRIS MANAGEMEN ATION; ES T, TAXI NONEMERGE A0100 [facility] 4 TRANSIT HEALTH TRANSPORT ENTERPRIS MANAGEMEN ATION; ES T, TAXI NONEMERGE A0100 [facility] 4 TRANSIT HEALTH TRANSPORT ENTERPRIS MANAGEMEN ATION; ES T, TAXI NONEMERGE A0100 [facility] 4 TRANSIT HEALTH TRANSPORT ENTERPRIS MANAGEMEN ATION; ES T, TAXI HOME CARE S5108 [facility] 4 [facility] [place] D AREA D AREA CARE AGENCY AGENCY CLIENT PER 15 MIN NONEMERGE A0100 [facility] 4 TRANS[facility] HEALTH TRANSPORT ENTERPRIS MANAGEMEN ATION; ES T, TAXI NONEMERGE A0100 [facility] 4 TRANSIT HEALTH TRANSPORT ENTERPRIS MANAGEMEN ATION; ES T, TAXI NONEMERGE A0100 [facility] 4 TRANSIT HEALTH TRANSPORT ENTERPRIS MANAGEMEN ATION; ES T, TAXI NONEMERGE A0100 [facility] 4 TRANSIT HEALTH TRANSPORT ENTERPRIS MANAGEMEN ATION; ES T, TAXI DEBRIDEME 14718 [facility] NAIL 4 D FOOT & DEN ANY ANKLE METHOD CENT 6/> NONEMERGE A0100 [facility] 4 TRANSIT HEALTH TRANSPORT ENTERPRIS MANAGEMEN ATION; ES T, TAXI NONEMERGE A0100 [facility] 4 TRANSIT HEALTH TRANSPORT ENTERPRIS MANAGEMEN ATION; ES T, TAXI NONEMERGE A0100 [facility] 4 TRANSIT HEALTH TRANSPORT ENTERPRIS MANAGEMEN ATION; ES T, TAXI NONEMERGE A0100 [facility] 4 TRANSIT HEALTH TRANSPORT ENTERPRIS MANAGEMEN ATION; ES T, TAXI NONEMERGE A0100 [facility] 4 TRANSIT HEALTH TRANSPORT ENTERPRIS MANAGEMEN ATION; ES T, TAXI NONEMERGE A0100 [facility] 4 TRANSIT HEALTH TRANSPORT ENTERPRIS MANAGEMEN ATION; ES T, T[facility]I HOME CARE S5108 [facility] 4 FORMER[facility] NAMED [facility] AREA AREA CARE AGENCY AGENCY CLIENT PER 15 MIN NONEMERGE A0100 [facility] 4 TRANS[facility] HEALTH TRANSPORT ENTERPRIS MANAGEMEN ATION; ES T, TAXI NONEMERGE A0100 [facility] 4 TRANSIT HEALTH TRANSPORT ENTERPRIS MANAGEMEN ATION; ES T, TAXI NONEMERGE A0100 [facility] 4 TRANSIT HEALTH TRANSPORT ENTERPRIS MANAGEMEN ATION; ES T, TAXI NONEMERGE A0100 [facility] 4 TRANSIT HEALTH TRANSPORT ENTERPRIS MANAGEMEN ATION; ES T, TAXI NONEMERGE A0100 [facility] 4 TRANSIT HEALTH TRANSPORT ENTERPRIS MANAGEMEN ATION; ES T, TAXI O2 CONC 1 E1390 [facility] 4 MEDICAL MEDICAL 85%/>02 LLC; LLC; [facility] AT [facility] FLW RATE NONEMERGE A0100 [facility] 4 TRANSIT HEALTH TRANSPORT ENTERPRIS MANAGEMEN ATION; ES T, TAXI NONEMERGE A0100 [facility] 4 TRANSIT HEALTH TRANSPORT ENTERPRIS MANAGEMEN ATION; ES T, TAXI NONEMERGE A0100 [facility] 4 TRANSIT HEALTH TRANSPORT ENTERPRIS MANAGEMEN ATION; ES T, TAXI NONEMERGE A0100 [facility] 4 TRANSIT HEALTH TRANSPORT ENTERPRIS MANAGEMEN ATION; ES T, TAXI NONEMERGE A0100 [facility] 4 TRANSIT HEALTH TRANSPORT ENTERPRIS MANAGEMEN ATION; ES T, TAXI HOME CARE S5108 [facility] TRAINING 4 FORMER[facility] NAMED [facility] AREA AREA CARE AGENCY AGENCY CLIENT PER 15 MIN NONEMERGE A0100 [facility] 4 TRANSIT HEALTH TRANSPORT ENTERPRIS MANAGEMEN ATION; ES T, TAXI NONEMERGE A0100 [facility] 4 TRANSIT HEALTH TRANSPORT ENTERPRIS MANAGEMEN ATION; ES T, TAXI NONEMERGE A0100 [facility] 4 TRANSIT HEALTH TRANSPORT ENTERPRIS MANAGEMEN ATION; ES T, TAXI NONEMERGE A0100 [facility] 4 TRANSIT HEALTH TRANSPORT ENTERPRIS MANAGEMEN ATION; ES T, TAXI NONEMERGE A0100 [facility] 4 TRANSIT HEALTH TRANSPORT ENTERPRIS MANAGEMEN ATION; ES T, TAXI NONEMERGE A0100 [facility] 4 TRANSIT HEALTH TRANSPORT ENTERPRIS MANAGEMEN ATION; ES T, TAXI NONEMERGE A0100 [facility] 4 TRANSIT HEALTH TRANSPORT ENTERPRIS MANAGEMEN ATION; ES T, TAXI NONEMERGE A0100 [facility] 4 TRANSIT HEALTH TRANSPORT ENTERPRIS MANAGEMEN ATION; ES T, TAXI NONEMERGE A0100 [facility] 4 TRANSIT HEALTH TRANSPORT ENTERPRIS MANAGEMEN ATION; ES T, TAXI NONEMERGE A0100 [facility] 4 TRANSIT HEALTH TRANSPORT ENTERPRIS MANAGEMEN ATION; ES T, TAXI NONEMERGE A0100 [facility] 4 TRANSIT HEALTH TRANSPORT ENTERPRIS MANAGEMEN ATION; ES T, TAXI HOME CARE S5108 [facility] 4 FORMER[facility] NAMED [facility] AREA D AREA CARE AGENCY AGENCY CLIENT PER 15 MIN NONEMERGE A0100 [facility] 4 TRANS[facility] HEALTH TRANSPORT ENTERPRIS MANAGEMEN ATION; ES T, TAXI NONEMERGE A0100 [facility] 4 TRANSIT HEALTH TRANSPORT ENTERPRIS MANAGEMEN ATION; ES T, TAXI NONEMERGE A0100 [facility] 4 TRANSIT HEALTH TRANSPORT ENTERPRIS MANAGEMEN ATION; ES T, TAXI NONEMERGE A0100 [facility] 4 TRANSIT HEALTH TRANSPORT ENTERPRIS MANAGEMEN ATION; ES T, TAXI NONEMERGE A0100 [facility] 4 TRANSIT HEALTH TRANSPORT ENTERPRIS MANAGEMEN ATION; ES T, TAXI NONEMERGE A0100 [facility] 4 TRANSIT HEALTH TRANSPORT ENTERPRIS MANAGEMEN ATION; ES T, TAXI O2 CONC 1 E1390 [facility] 4 MEDICAL MEDICAL 85%/>02 LLC; LLC; [facility] AT [facility] FLW RATE NONEMERGE A0100 [facility] 4 TRANSIT HEALTH TRANSPORT ENTERPRIS MANAGEMEN ATION; ES T, TAXI NONEMERGE A0100 [facility] 4 TRANSIT HEALTH TRANSPORT ENTERPRIS MANAGEMEN ATION; ES T, TAXI NONEMERGE A0100 [facility] 4 TRANSIT HEALTH TRANSPORT ENTERPRIS MANAGEMEN ATION; ES T, TAXI NONEMERGE A0100 [facility] 4 TRANSIT HEALTH TRANSPORT ENTERPRIS MANAGEMEN ATION; ES T, TAXI HOME CARE S5108 [facility] 4 FORMERLY NAMED [facility] HOME D AREA D AREA CARE AGENCY AGENCY CLIENT PER 15 MIN NONEMERGE A0100 [facility] 4 TRANSIT HEALTH TRANSPORT ENTERPRIS MANAGEMEN ATION; ES T, TAXI DISPBL T4535 PERSONAL PERSONAL LINER/JARED 4 TOUCH TOUCH ELD/GUARD HOME FCI CARE /PAD/UNDG OF OF RMNT INCONT EA NONEMERGE A0100 [facility] 4 TRANSIT HEALTH TRANSPORT ENTERPRIS MANAGEMEN ATION; ES T, TAXI NONEMERGE A0100 [facility] 4 TRANSIT HEALTH TRANSPORT ENTERPRIS MANAGEMEN ATION; ES T, TAXI NONEMERGE A0100 [facility] 4 TRANSIT HEALTH TRANSPORT ENTERPRIS MANAGEMEN ATION; ES T, TAXI NONEMERGE A0100 [facility] 4 TRANSIT HEALTH TRANSPORT ENTERPRIS MANAGEMEN ATION; ES T, TAXI NONEMERGE A0100 [facility] 4 TRANSIT HEALTH TRANSPORT ENTERPRIS MANAGEMEN ATION; ES T, TAXI NONEMERGE A0100 [facility] 4 TRANSIT HEALTH TRANSPORT ENTERPRIS MANAGEMEN ATION; ES T, TAXI NONEMERGE A0100 [facility] 4 TRANSIT HEALTH TRANSPORT ENTERPRIS MANAGEMEN ATION; ES T, TAXI NONEMERGE A0100 [facility] 4 TRANSIT HEALTH TRANSPORT ENTERPRIS MANAGEMEN ATION; ES T, TAXI NONEMERGE A0100 [facility] 4 TRANSIT HEALTH TRANSPORT ENTERPRIS MANAGEMEN ATION; ES T, TAXI HOME CARE S5108 [facility] TRAIN[facility] 4 [employer] HOME D AREA D AREA CARE AGENCY AGENCY CLIENT PER 15 MIN NONEMERGE A0100 [facility] 4 TRANSIT HEALTH TRANSPORT ENTERPRIS MANAGEMEN ATION; ES T, TAXI SKIN TEST 07742 [facility] DEPARTM INTRADERM AL NONEMERGE A0100 [facility] 4 TRANSIT HEALTH TRANSPORT ENTERPRIS MANAGEMEN ATION; ES T, TAXI NONEMERGE A0100 [facility] 4 TRANSIT HEALTH TRANSPORT ENTERPRIS MANAGEMEN ATION; ES T, TAXI NONEMERGE A0100 [facility] 4 TRANSIT HEALTH TRANSPORT ENTERPRIS MANAGEMEN ATION; ES T, TAXI NONEMERGE A0100 [facility] 4 TRANSIT HEALTH TRANSPORT ENTERPRIS MANAGEMEN ATION; ES T, TAXI NONEMERGE A0100 [facility] 4 TRANSIT HEALTH TRANSPORT ENTERPRIS MANAGEMEN ATION; ES T, TAXI O2 CONC 1 E1390 [facility] 4 MEDICAL MEDICAL 85%/>02 LLC; LLC; [facility] AT [facility] FLW RATE NONEMERGE A0100 [facility] 4 TRANSIT HEALTH TRANSPORT ENTERPRIS MANAGEMEN ATION; ES T, TAXI NONEMERGE A0100 [facility] 4 TRANSIT HEALTH TRANSPORT ENTERPRIS MANAGEMEN ATION; ES T, TAXI NONEMERGE A0100 [facility] 4 TRANSIT HEALTH TRANSPORT ENTERPRIS MANAGEMEN ATION; ES T, TAXI HOME CARE S5108 [facility] TRA[facility] 4 JUST[facility] [employer] HOME D AREA D AREA CARE AGENCY AGENCY CLIENT PER 15 MIN NONEMERGE A0100 [facility] 4 TRANSIT HEALTH TRANSPORT ENTERPRIS MANAGEMEN ATION; ES T, TAXI NONEMERGE A0100 [facility] 4 TRANSIT HEALTH TRANSPORT ENTERPRIS MANAGEMEN ATION; ES T, TAXI NONEMERGE A0100 [facility] 4 TRANSIT HEALTH TRANSPORT ENTERPRIS MANAGEMEN ATION; ES T, TAXI NONEMERGE A0100 [facility] 4 TRANSIT HEALTH TRANSPORT ENTERPRIS MANAGEMEN ATION; ES T, TAXI LANCETS A4259 ARRIVA ARRIVA PER BOX 4 MEDICAL MEDICAL OF 100 NORMAL A4256 ARRIVA ARRIVA LOW AND 4 MEDICAL MEDICAL HIGH CALIBRATO R SOLUTION/ CHIPS BLD GLU A4253 ARRIVA ARRIVA TEST/REAG 4 MEDICAL MEDICAL T STRIPS HOME BLD GLU MON-50 NONEMERGE A0100 [facility] 4 TRANSIT HEALTH TRANSPORT ENTERPRIS MANAGEMEN ATION; ES T, TAXI NONEMERGE A0100 [facility] 4 TRANSIT HEALTH TRANSPORT ENTERPRIS MANAGEMEN ATION; ES T, TAXI NONEMERGE A0100 [facility] 4 TRANSIT HEALTH TRANSPORT ENTERPRIS MANAGEMEN ATION; ES T, TAXI NONEMERGE A0100 [facility] 4 TRANSIT HEALTH TRANSPORT ENTERPRIS MANAGEMEN ATION; ES T, TAXI NONEMERGE A0100 [facility] 4 TRANSIT HEALTH TRANSPORT ENTERPRIS MANAGEMEN ATION; ES T, TAXI NONEMERGE A0100 [facility] 4 TRANSIT HEALTH TRANSPORT ENTERPRIS MANAGEMEN ATION; ES T, TAXI NONEMERGE A0100 [facility] 4 TRANSIT HEALTH TRANSPORT ENTERPRIS MANAGEMEN ATION; ES T, [facility] S5108 [facility] [address] [facility] D AREA D AREA CARE AGENCY AGENCY CLIENT PER 15 MIN NONEMERGE A0100 [facility] 4 TRANSIT HEALTH TRANSPORT ENTERPRIS MANAGEMEN ATION; ES T, TAXI NONEMERGE A0100 [facility] 4 TRANSIT HEALTH TRANSPORT ENTERPRIS MANAGEMEN ATION; ES T, T[facility]I O2 CONC 1 E1390 [facility] MEDICAL MEDICAL 85%/>02 LLC; LLC; CONC AT [facility] FLW RATE NONEMERGE A0100 [facility] 4 TRANSIT HEALTH TRANSPORT ENTERPRIS MANAGEMEN ATION; ES T, [facility] S5108 [facility] 4 [facility] ARE[facility] CARE AGENCY AGENCY CLIENT PER 15 MIN NONEMERGE A0100 [facility] 4 TRANSIT HEALTH TRANSPORT ENTERPRIS MANAGEMEN ATION; ES T, TAXI NONEMERGE A0100 [facility] 4 TRANSIT HEALTH TRANSPORT ENTERPRIS MANAGEMEN ATION; ES T, [facility] S5108 [facility] 4 [facility] ARE[facility] CARE AGENCY AGENCY CLIENT PER 15 MIN NONEMERGE A0100 [facility] 4 TRANS[facility] HEALTH TRANSPORT ENTERPRIS MANAGEMEN ATION; ES T, T[facility]I NONEMERGE A0100 [facility] 4 TRANSIT HEALTH TRANSPORT ENTERPRIS MANAGEMEN ATION; ES T, TAXI NONEMERGE A0100 [facility] 4 TRANSIT HEALTH TRANSPORT ENTERPRIS MANAGEMEN ATION; ES T, TAXI NONEMERGE A0100 [facility] 4 TRANSIT HEALTH TRANSPORT ENTERPRIS MANAGEMEN ATION; ES T, T[facility]I O2 CONC 1 E1390 [facility] MEDICAL 85%/>02 LLC; LLC; CONC AT [facility] FLW RATE NONEMERGE A0100 [facility] 4 TRANSIT HEALTH TRANSPORT ENTERPRIS MANAGEMEN ATION; ES T, TAXI NONEMERGE A0100 [facility] 4 TRANSIT HEALTH TRANSPORT ENTERPRIS MANAGEMEN ATION; ES T, T[facility]I PROTHROMB 41200 [facility] IN TIME 4 O MEDICAL O MEDICAL ASSOC LA ASSOC LA NONEMERGE A0100 [facility] 4 TRANSIT HEALTH TRANSPORT ENTERPRIS MANAGEMEN ATION; ES T, TAXI NONEMERGE A0100 [facility] 4 TRANSIT HEALTH TRANSPORT ENTERPRIS MANAGEMEN ATION; ES T, [facility] S5108 [facility] 4 [facility] AREA CARE AGENCY AGENCY CLIENT PER 15 MIN SBSQ [id number] [facility] 4 CARDIOLOG CARE/DAY Y 35 MINUTES ECG 31436 CARDIO ABOU ROUTINE 4 AND TREMAINE ECG ELECTRO TAR W/LEAST SPECIALIS 12 LDS I&R ONLY SBSQ [id number] [facility] 4 CARDIOLOG CARE/DAY Y 35 MINUTES RADIOLOGI 09256 IZABELA BAKER LYN C EXAM 4 CHEST 2 RADIOLOGY VIEWS ASSOC FRONTAL&L ATERAL ECG 52618 [facility] ROUTINE 4 AND TREMAINE ECG ELECTRO TAR W/LEAST SPECIALIS 12 LDS I&R ONLY NONEMERGE A0100 [facility] 4 [facility] TRANSPORT ENTERPRIS MANAGEMEN ATION; ES T, TAXI NONEMERGE A0100 [facility] 4 [facility] TRANSPORT ENTERPRIS MANAGEMEN ATION; ES T, TAXI NONEMERGE A0100 [facility] 4 [facility] TRANSPORT ENTERPRIS MANAGEMEN ATION; ES T, TAXI O2 CONC 1 E1390 [facility] MEDICAL MEDICAL 85%/>02 [facility]; [facility] AT [facility] FLW RATE NONEMERGE A0100 [facility] 4 [facility] TRANSPORT ENTERPRIS MANAGEMEN ATION; ES T, TAXI PROTHROMB 55174 LONG ALVES IN TIME 4 O MEDICAL O MEDICAL ASSOC LA ASSOC LA NONEMERGE A0100 [facility] 4 [facility] TRANSPORT ENTERPRIS MANAGEMEN ATION; ES T, TAXI HOME CARE S5108 [facility] 4 FORMER[facility] NAMED [facility] AREA D AREA CARE AGENCY AGENCY CLIENT PER 15 MIN NONEMERGE A0100 [facility] 4 [facility] TRANSPORT ENTERPRIS MANAGEMEN ATION; ES T, TAXI PROTHROMB 97933 LONG BERKOWITZMASSIMO IN TIME 4 O MEDICAL O MEDICAL ASSOC LA ASSOC LA A4258 ARRIVA ARRIVA WERED 4 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 LIU A4233 ARRIVA ARRIVA ALKALINE 4 MEDICAL MEDICAL NOT J CELL MERON BG MON OWND PT LANCETS A4259 ARRIVA ARRIVA PER BOX 4 MEDICAL MEDICAL OF 100 BLD GLU A4253 ARRIVA ARRIVA TEST/REAG 4 MEDICAL MEDICAL T STRIPS HOME BLD GLU MON-50 NORMAL A4256 ARRIVA ARRIVA LOW AND 4 MEDICAL MEDICAL HIGH CALIBRATO R SOLUTION/ CHIPS NONEMERGE A0100 [facility] 4 [facility] TRANSPORT ENTERPRIS MANAGEMEN ATION; ES T, TAXI NONEMERGE A0100 [facility] 4 [facility] TRANSPORT ENTERPRIS MANAGEMEN ATION; ES T, TAXI NONEMERGE A0100 [facility] 4 [facility] TRANSPORT ENTERPRIS MANAGEMEN ATION; ES T, TAXI NONEMERGE A0100 [facility] 4 [facility] TRANSPORT ENTERPRIS MANAGEMEN ATION; ES T, TAXI NONEMERGE A0100 [facility] 4 [facility] TRANSPORT ENTERPRIS MANAGEMEN ATION; ES T, TAXI ECG 49799 [facility] ROUTINE 4 HOSP INC HOSP INC ECG W/LEAST 12 LDS TRCG ONLY W/O I&R PROTHROMB 35445 [facility] BALJIT CO IN TIME 4 HOSP INC HOSP INC THER 47370 [facility] PROPH/DX 4 HOSP INC HOSP INC NJX IV PUSH SINGLE/1S T SBST/DRUG CREATINE 18157 [facility] KINASE 4 HOSP INC HOSP INC TOTAL CREATINE 88758 [facility] KINASE MB 4 HOSP INC HOSP INC FRACTION ONLY BLOOD 12037 [facility] COUNT 4 HOSP INC HOSP INC COMPLETE AUTO&AUTO DIFRNTL WBC INJECTION J2405 [facility] 4 HOSP INC HOSP INC ONDANSETR ON HCL PER 1 MG COLLECTIO 27237 [facility] N VENOUS 4 HOSP INC [place] [address] [facility] TROPONIN 4 HOSP INC HOSP INC QUANTITAT TIKA COMPREHEN 32152 [facility] SIVE 4 HOSP INC HOSP INC METABOLIC PANEL GROUND A0425 [facility] MILEAGE 4 EMS EMS PER STATUTE MILE AMBULANCE A0429 [facility] SERVICE 4 EMS EMS BLS EMERGENCY TRANSPORT URNLS DIP 21175 [facility] 4 HOSP INC HOSP INC STICK/TAB [place] RG[place] [address] [facility] INFUSION 4 HOSP INC HOSP INC HYDRATION INITIAL 31 MIN-1 HOUR THROMBOPL 39416 [facility] ASTIN 4 HOSP INC HOSP INC TIME PARTIAL PLASMA/WH OLE BLOOD RADIOLOGI 65438 [facility] 4 IMAGING & EXAMINATI ON CHEST INTERVENT SINGLE I VIEW FRONTAL NONEMERGE A0100 [facility] 4 [facility] TRANSPORT ENTERPRIS MANAGEMEN ATION; ES T, TAXI NONEMERGE A0100 [facility] 4 [facility] TRANSPORT ENTERPRIS MANAGEMEN ATION; ES T, TAXI NONEMERGE A0100 [facility] 4 [facility] TRANSPORT ENTERPRIS MANAGEMEN ATION; ES T, TAXI NONEMERGE A0100 [facility] 4 [facility] TRANSPORT ENTERPRIS MANAGEMEN ATION; ES T, [facility] HOME CARE S5108 [facility] 4 FORMERLY NAMED [facility] AREA D AREA CARE AGENCY AGENCY CLIENT PER 15 MIN O2 CONC 1 E1390 [facility] 4 MEDICAL MEDICAL 85%/>02 LLC; LLC; CONC AT [facility] PRSC FLW RATE NONEMERGE A0100 [facility] 4 [facility] TRANSPORT ENTERPRIS MANAGEMEN ATION; ES T, TAXI ECG 28970 [facility] ROUTINE 4 O MEDICAL JUAN ECG W/LEAST ASSOCIATE 12 LDS TRCG ONLY W/O I&R NONEMERGE A0100 [facility] 4 [facility] TRANSPORT ENTERPRIS MANAGEMEN ATION; ES T, TAXI PROTHROMB 03510 LONG ALVES IN TIME 4 O MEDICAL O [facility]ICAL ASSOC LA ASSOC LA COLLECTIO 30603 LONG ALVES N VENOUS 4 O MEDICAL O MEDICAL BLOOD ASSOC LA ASSOC LA VENIPUNCT URE LIPID 07569 [facility] PANEL 4 O MEDICAL O MEDICAL ASSOC LA ASSOC LA COMPREHEN 90907 [facility] SIVE 4 O MEDICAL O MEDICAL METABOLIC ASSOC LA ASSOC LA PANEL NONEMERGE A0100 [facility] 4 [facility] TRANSPORT ENTERPRIS MANAGEMEN ATION; ES T, [facility] HOME CARE S5108 [facility] 4 FORMERLY NAMED [facility] AREA D AREA CARE AGENCY AGENCY CLIENT PER 15 MIN NONEMERGE A0100 [facility] 4 [facility] TRANSPORT ENTERPRIS MANAGEMEN ATION; ES T, TAXI COLLECTIO 65272 [facility] N VENOUS 4 O MEDICAL O MEDICAL BLOOD ASSOC LA ASSOC LA VENIPUNCT URE BLOOD 65843 [facility] COUNT 4 O MEDICAL O MEDICAL COMPLETE ASSOC LA ASSOC LA AUTO&AUTO DIFRNTL WBC CREATININ 62544 [facility] GARAY E OTHER 4 O MEDICAL O MEDICAL SOURCE ASSOC LA ASSOC LA IAADIADOO 31355 [facility] 4 O MEDICAL O MEDICAL INFLUENZA ASSOC LA ASSOC LA URNLS DIP 71854 [facility] 4 O MEDICAL O MEDICAL STICK/TAB ASSOC LA ASSOC LA LET RGNT AUTO W/O MICROSCOP Y IAADIADOO 73140 [facility] 4 O MEDICAL O MEDICAL STREPTOCO ASSOC LA ASSOC LA CCUS GROUP A NONEMERGE A0100 [facility] 4 [facility]SPORT ENTERPRIS MANAGEMEN ATION; ES T, TAXI NONEMERGE A0100 [facility] 4 [facility] TRANSPORT ENTERPRIS MANAGEMEN ATION; ES T, TAXI NONEMERGE A0100 [facility] 4 [facility] TRANSPORT ENTERPRIS MANAGEMEN ATION; ES T, TAXI PROTHROMB 32460 [facility] IN TIME 4 O MEDICAL [place] [address] LONG ALVES THYROID 4 O MEDICAL O MEDICAL STIMULATI ASSOC LA ASSOC LA NG HORMONE TSH BLOOD 32739 [facility] COUNT 4 O MEDICAL O MEDICAL COMPLETE ASSOC LA ASSOC LA AUTO&AUTO DIFRNTL WBC COLLECTIO 55502 LONG ALVES N VENOUS 4 O MEDICAL O MEDICAL BLOOD ASSOC LA ASSOC LA VENIPUNCT URE COMPREHEN 22862 LONG ALVES SIVE 4 O MEDICAL O MEDICAL METABOLIC ASSOC LA ASSOC LA PANEL NONEMERGE A0100 [facility] 4 [facility] TRANSPORT ENTERPRIS MANAGEMEN ATION; ES T, TAXI NONEMERGE A0100 [facility] 4 [facility] TRANSPORT ENTERPRIS MANAGEMEN ATION; ES T, TAXI NONEMERGE A0100 [facility] 4 [facility] TRANSPORT ENTERPRIS MANAGEMEN ATION; ES T, TAXI NONEMERGE A0100 [facility] 4 [facility] TRANSPORT ENTERPRIS MANAGEMEN ATION; ES T, TAXI HOME CARE S5108 [employer] AREA D AREA CARE AGENCY AGENCY CLIENT PER 15 MIN NONEMERGE A0100 [facility] 4 [facility] TRANSPORT ENTERPRIS MANAGEMEN ATION; ES T, TAXI DISPBL [id number] PERSONAL PERSONAL LINER/JARED 4 TOUCH TOUCH ELD/GUARD HOME FCI CARE /PAD/UNDG OF OF RMNT INCONT EA NONEMERGE A0100 [facility] 4 [facility] TRANSPORT ENTERPRIS MANAGEMEN ATION; ES T, TAXI NONEMERGE A0100 [facility] 4 [facility] TRANSPORT ENTERPRIS MANAGEMEN ATION; ES T, TAXI NONEMERGE A0100 [facility] 4 [facility] TRANSPORT ENTERPRIS MANAGEMEN ATION; ES T, TAXI O2 CONC 1 E1390 [facility] 4 MEDICAL MEDICAL 85%/>02 [facility] AT [facility] FLW RATE NONEMERGE A0100 [facility] 4 [facility] TRANSPORT ENTERPRIS MANAGEMEN ATION; ES T, TAXI HOME CARE S5108 [employer] [place] [address] [employer] [employer] [facility] AREA D AREA CARE AGENCY AGENCY CLIENT PER 15 MIN NONEMERGE A0100 [facility] 3 [facility] TRANSPORT ENTERPRIS MANAGEMEN ATION; ES T, TAXI NONEMERGE A0100 [facility] 3 [facility] TRANSPORT ENTERPRIS MANAGEMEN ATION; ES T, TAXI NONEMERGE A0100 [facility] 3 [facility] HE[facility] TRANSPORT ENTERPRIS MANAGEMEN ATION; ES T, TAXI NONEMERGE A0100 [facility] 3 [facility] TRANSPORT ENTERPRIS MANAGEMEN ATION; ES T, TAXI NONEMERGE A0100 [facility] 3 [facility] TRANSPORT ENTERPRIS MANAGEMEN ATION; ES T, TAXI NONEMERGE A0100 [facility] 3 [facility] TRANSPORT ENTERPRIS MANAGEMEN ATION; ES T, TAXI NONEMERGE A0100 [facility] 3 [facility] TRANSPORT ENTERPRIS MANAGEMEN ATION; ES T, TAXI NONEMERGE A0100 [facility] 3 [facility] TRANSPORT ENTERPRIS MANAGEMEN ATION; ES T, TAXI NONEMERGE A0100 [facility] 3 [facility] TRANSPORT ENTERPRIS MANAGEMEN ATION; ES T, TAXI NONEMERGE A0100 [facility] 3 [facility] TRANSPORT ENTERPRIS MANAGEMEN ATION; ES T, T[facility] HOME CARE S[address] AREA D AREA CARE AGENCY AGENCY CLIENT PER 15 MIN NONEMERGE A0100 [facility] 3 [facility] TRANSPORT ENTERPRIS MANAGEMEN ATION; ES T, TAXI NONEMERGE A0100 [facility] 3 [facility] TRANSPORT ENTERPRIS MANAGEMEN ATION; ES T, TAXI NONEMERGE A0100 [facility] 3 [facility] TRANSPORT ENTERPRIS MANAGEMEN ATION; ES T, TAXI NONEMERGE A0100 [facility] 3 [facility] TRANSPORT ENTERPRIS MANAGEMEN ATION; ES T, TAXI O2 CONC 1 E1390 [facility] 3 MEDICAL MEDICAL 85%/>02 [facility] FLW RATE NONEMERGE A0100 [facility] 3 [facility] TRANSPORT ENTERPRIS MANAGEMEN ATION; ES T, TAXI NONEMERGE A0100 [facility] 3 [facility] TRANSPORT ENTERPRIS MANAGEMEN ATION; ES T, TAXI NONEMERGE A0100 [facility] 3 [facility] TRANSPORT ENTERPRIS MANAGEMEN ATION; ES T, TAXI NONEMERGE A0100 [facility] 3 [facility] TRANSPORT ENTERPRIS MANAGEMEN ATION; ES T, TAXI NORMAL A4256 ARRIVA ARRIVA LOW AND 3 MEDICAL MEDICAL HIGH CALIBRATO R SOLUTION/ CHIPS BLD GLU A4253 ARRIVA ARRIVA TEST/REAG 3 MEDICAL MEDICAL T STRIPS HOME BLD GLU MON-50 LANCETS A4259 ARRIVA ARRIVA PER BOX 3 MEDICAL MEDICAL OF 100 NONEMERGE A0100 [facility] 3 [facility] TRANSPORT ENTERPRIS MANAGEMEN ATION; ES T, TAXI NONEMERGE A0100 [facility] 3 [facility] TRANSPORT ENTERPRIS MANAGEMEN ATION; ES T, TAXI NONEMERGE A0100 [facility] 3 [facility] TRANSPORT ENTERPRIS MANAGEMEN ATION; ES T, TAXI NONEMERGE A0100 [facility] 3 [facility] TRANSPORT ENTERPRIS MANAGEMEN ATION; ES T, TAXI NONEMERGE A0100 [facility] 3 [facility] TRANSPORT ENTERPRIS MANAGEMEN ATION; ES T, TAXI NONEMERGE A0100 [facility] 3 [facility] TRANSPORT ENTERPRIS MANAGEMEN ATION; ES T, TAXI NONEMERGE A0100 [facility] 3 [facility] TRANSPORT ENTERPRIS MANAGEMEN ATION; ES T, TAXI NONEMERGE A0100 [facility] 3 [facility] TRANSPORT ENTERPRIS MANAGEMEN ATION; ES T, TAXI HOME CARE S5108 [facility] 3 FORMERLY NAMED [facility] HOME D AREA D AREA CARE AGENCY AGENCY CLIENT PER 15 MIN NONEMERGE A0100 [facility] 3 [facility] TRANSPORT ENTERPRIS MANAGEMEN ATION; ES T, TAXI NONEMERGE A0100 [facility] 3 [facility] TRANSPORT ENTERPRIS MANAGEMEN ATION; ES T, TAXI NONEMERGE A0100 [facility] 3 TRANS[facility] HE[facility] TRANSPORT ENTERPRIS MANAGEMEN ATION; ES T, TAXI NONEMERGE A0100 [facility] 3 [facility] TRANSPORT ENTERPRIS MANAGEMEN ATION; ES T, TAXI O2 CONC 1 E1390 [facility] 3 MEDICAL MEDICAL 85%/>02 [facility] AT [facility] FLW RATE NONEMERGE A0100 [facility] 3 [facility] TRANSPORT ENTERPRIS MANAGEMEN ATION; ES T, TAXI NONEMERGE A0100 [facility] 3 [facility] TRANSPORT ENTERPRIS MANAGEMEN ATION; ES T, TAXI NONEMERGE A0100 [facility] 3 [facility] TRANSPORT ENTERPRIS MANAGEMEN ATION; ES T, TAXI NONEMERGE A0100 [facility] 3 [facility] TRANSPORT ENTERPRIS MANAGEMEN ATION; ES T, TAXI NONEMERGE A0100 [facility] 3 [facility] TRANSPORT ENTERPRIS MANAGEMEN ATION; ES T, TAXI HOME CARE S5108 [facility] 3 FORMERLY NAMED [facility] HOME D AREA D AREA CARE AGENCY AGENCY CLIENT PER 15 MIN NONEMERGE A0100 [facility] 3 [facility] TRANSPORT ENTERPRIS MANAGEMEN ATION; ES T, TAXI PROTHROMB 31064 LONG ALVES IN TIME 3 O MEDICAL O MEDICAL ASSOC LA ASSOC LA NONEMERGE A0100 [facility] 3 [facility] TRANSPORT ENTERPRIS MANAGEMEN ATION; ES T, TAXI NONEMERGE A0100 [facility] 3 [facility] TRANSPORT ENTERPRIS MANAGEMEN ATION; ES T, TAXI NONEMERGE A0100 [facility] 3 [facility] TRANSPORT ENTERPRIS MANAGEMEN ATION; ES T, TAXI NONEMERGE A0100 [facility] 3 [facility] TRANSPORT ENTERPRIS MANAGEMEN ATION; ES T, TAXI NONEMERGE A0100 [facility] 3 [facility] TRANSPORT ENTERPRIS MANAGEMEN ATION; ES T, TAXI NONEMERGE A0100 [facility] 3 [facility] TRANSPORT ENTERPRIS MANAGEMEN ATION; ES T, TAXI NONEMERGE A0100 [facility] 3 [facility] TRANSPORT ENTERPRIS MANAGEMEN ATION; ES T, TAXI PROTHROMB 49709 LONG ALVES IN TIME 3 O MEDICAL O MEDICAL ASSOC LA ASSOC LA ALBUMIN 12515 LAB GALA LAB GALA URINE 3 DAVID DAV[facility] MICROAL[facility] [employer] MIN QUANTIATI VE COLLECTIO 81806 LONG ALVES N VENOUS 3 O MEDICAL O MEDICAL BLOOD ASSOC LA ASSOC LA VENIPUNCT URE HEMOGLOBI 62731 LONG ALVES N 3 O MEDICAL O MEDICAL GLYCOSYLA ASSOC LA ASSOC LA DOTTIE A1C BLOOD 65565 LONG ALVES COUNT 3 O MEDICAL O MEDICAL COMPLETE ASSOC LA ASSOC LA AUTO&[place] [address] LONG ALVES THYROID 3 O MEDICAL O MEDICAL STIMULATI ASSOC LA ASSOC LA NG HORMONE TSH CREATININ 97719 LAB G[facility] LAB GALA E OTHER [facility] COMPREHEN 88776 LONG ALVES SIVE 3 O MEDICAL O MEDICAL METABOLIC ASSOC LA ASSOC LA PANEL LIPID 70981 LONG ALVES PANEL 3 O MEDICAL O MEDICAL ASSOC LA ASSOC LA NONEMERGE A0100 [facility] 3 [facility] TRANSPORT ENTERPRIS MANAGEMEN ATION; ES T, TAXI NONEMERGE A0100 [facility] 3 [facility] TRANSPORT ENTERPRIS MANAGEMEN ATION; ES T, TAXI HOME CARE S5108 [facility] [address] [facility] D AREA D AREA CARE AGENCY AGENCY CLIENT PER 15 MIN NONEMERGE A0100 [facility] 3 [facility] TRANSPORT ENTERPRIS MANAGEMEN ATION; ES T, TAXI NONEMERGE A0100 [facility] 3 TRANS[facility] HEALTH TRANSPORT ENTERPRIS MANAGEMEN ATION; ES T, TAXI NONEMERGE A0100 [facility] NCY 3 TRANSIT HEALTH TRANSPORT ENTERPRIS MANAGEMEN ATION; ES T, TAXI NONEMERGE A0100 [facility] 3 TRANS[facility] HE[facility] TRANSPORT ENTERPRIS MANAGEMEN ATION; ES T, TAXI O2 CONC 1 E1390 [facility] MEDICAL MEDICAL 85%/>02 [facility] FLW RATE NONEMERGE A0100 [facility] 3 TRANS[facility] HE[facility] TRANSPORT ENTERPRIS MANAGEMEN ATION; ES T, TAXI NONEMERGE A0100 [facility] 3 TRANS[facility] HEALTH TRANSPORT ENTERPRIS MANAGEMEN ATION; ES T, TAXI NONEMERGE A0100 [facility] 3 TRANS[facility] HE[facility] TRANSPORT ENTERPRIS MANAGEMEN ATION; ES T, TAXI NONEMERGE A0100 [facility] 3 TRANS[facility] TRANSPORT ENTERPRIS MANAGEMEN ATION; ES T, TAXI NONEMERGE A0100 [facility] 3 [facility] TRANSPORT ENTERPRIS MANAGEMEN ATION; ES T, TAXI HOME CARE S5108 [facility] [address] [facility] D AREA D AREA CARE AGENCY AGENCY CLIENT PER 15 MIN NONEMERGE A0100 [facility] 3 [facility] TRANSPORT ENTERPRIS MANAGEMEN ATION; ES T, TAXI NONEMERGE A0100 [facility] 3 [facility] TRANSPORT ENTERPRIS MANAGEMEN ATION; ES T, TAXI NONEMERGE A0100 [facility] 3 TRANS[facility] HE[facility] TRANSPORT ENTERPRIS MANAGEMEN ATION; ES T, TAXI NONEMERGE A0100 [facility] 3 TRANS[facility] HEALTH TRANSPORT ENTERPRIS MANAGEMEN ATION; ES T, TAXI NONEMERGE A0100 [facility] 3 TRANSIT HEALTH TRANSPORT ENTERPRIS MANAGEMEN ATION; ES T, TAXI NONEMERGE A0100 [facility] 3 TRANS[facility] HEALTH TRANSPORT ENTERPRIS MANAGEMEN ATION; ES T, TAXI NONEMERGE A0100 [facility] 3 TRANS[facility] HE[facility] TRANSPORT ENTERPRIS MANAGEMEN ATION; ES T, TAXI NONEMERGE A0100 [facility] 3 [facility]ANS[facility] TRANSPORT ENTERPRIS MANAGEMEN ATION; ES T, TAXI NONEMERGE A0100 [facility] 3 [facility] TRANSPORT ENTERPRIS MANAGEMEN ATION; ES T, TAXI NONEMERGE A0100 [facility] 3 TRANS[facility] HEALTH TRANSPORT ENTERPRIS MANAGEMEN ATION; ES T, TAXI HOME CARE S5108 [facility] 3 FORMER[facility] NAMED [facility] AREA D AREA CARE AGENCY AGENCY CLIENT PER 15 MIN NONEMERGE A0100 [facility] 3 [facility]ANS[facility] TRANSPORT ENTERPRIS MANAGEMEN ATION; ES T, TAXI NONEMERGE A0100 [facility] 3 TRANS[facility] HEALTH TRANSPORT ENTERPRIS MANAGEMEN ATION; ES T, TAXI NONEMERGE A0100 [facility] 3 TRANSIT HEALTH TRANSPORT ENTERPRIS MANAGEMEN ATION; ES T, TAXI NONEMERGE A0100 [facility] 3 [facility] TRANSPORT ENTERPRIS MANAGEMEN ATION; ES T, TAXI MISC TX T1999 [facility] & 3 [facility] D AREA D AREA RETAIL AGENCY AGENCY PURCHASE NOC O2 CONC 1 E1390 [facility] MEDICAL MEDICAL 85%/>02 [facility] AT [facility] FLW RATE NONEMERGE A0100 [facility] 3 TRANS[facility] HEALTH TRANSPORT ENTERPRIS MANAGEMEN ATION; ES T, TAXI NONEMERGE A0100 [facility] 3 TRANS[facility] HEALTH TRANSPORT ENTERPRIS MANAGEMEN ATION; ES T, TAXI NONEMERGE A0100 [facility] 3 TRANS[facility] HEALTH TRANSPORT ENTERPRIS MANAGEMEN ATION; ES T, TAXI LIPID 92152 [facility] PANEL 3 O MEDICAL O MEDICAL ASSOC LA ASSOC LA COMPREHEN 15884 [facility] SIVE 3 O MEDICAL O MEDICAL METABOLIC ASSOC LA ASSOC LA PANEL COLLECTIO 78920 [facility] N VENOUS 3 O MEDICAL O MEDICAL BLOOD ASSOC LA ASSOC LA VENIPUNCT URE NONEMERGE A0100 [facility] 3 [facility] TRANSPORT ENTERPRIS MANAGEMEN ATION; ES T, TAXI HOME CARE S5108 [facility] TRAINING [address] [facility] D AREA D AREA CARE AGENCY AGENCY CLIENT PER 15 MIN NONEMERGE A0100 [facility] 3 [facility]SPORT ENTERPRIS MANAGEMEN ATION; ES T, TAXI BLD GLU A4253 ARRIVA ARRIVA TEST/REAG 3 MEDICAL MEDICAL T STRIPS HOME BLD GLU MON-50 LANCETS A4259 ARRIVA ARRIVA PER BOX 3 MEDICAL MEDICAL OF 100 HOME E0607 ARRIVA ARRIVA BLOOD 3 MEDICAL MEDICAL GLUCOSE MONITOR NONEMERGE A0100 [facility] 3 [facility] TRANSPORT ENTERPRIS MANAGEMEN ATION; ES T, TAXI NONEMERGE A0100 [facility] 3 TRANSIT HEALTH TRANSPORT ENTERPRIS MANAGEMEN ATION; ES T, TAXI NONEMERGE A0100 [facility] 3 TRANSIT HEALTH TRANSPORT ENTERPRIS MANAGEMEN ATION; ES T, TAXI NONEMERGE A0100 [facility] 3 TRANS[facility] HEALTH TRANSPORT ENTERPRIS MANAGEMEN ATION; ES T, TAXI NONEMERGE A0100 [facility] 3 TRANS[facility] HEALTH TRANSPORT ENTERPRIS MANAGEMEN ATION; ES T, TAXI NONEMERGE A0100 [facility] 3 TRANS[facility] HEALTH TRANSPORT ENTERPRIS MANAGEMEN ATION; ES T, TAXI NONEMERGE A0100 [facility] 3 TRANSIT HEALTH TRANSPORT ENTERPRIS MANAGEMEN ATION; ES T, TAXI NONEMERGE A0100 [facility] 3 TRANSIT HEALTH TRANSPORT ENTERPRIS MANAGEMEN ATION; ES T, TAXI NONEMERGE A0100 [facility] 3 TRANSIT HEALTH TRANSPORT ENTERPRIS MANAGEMEN ATION; ES T, [facility] HOME CARE S5108 [facility] TRAINING [address] [facility] D AREA D AREA CARE AGENCY AGENCY CLIENT PER 15 MIN NONEMERGE A0100 [facility] 3 [facility] TRANSPORT ENTERPRIS MANAGEMEN ATION; ES T, TAXI NONEMERGE A0100 [facility] 3 TRANS[facility] HEALTH TRANSPORT ENTERPRIS MANAGEMEN ATION; ES T, TAXI NONEMERGE A0100 [facility] 3 TRANS[facility] HEALTH TRANSPORT ENTERPRIS MANAGEMEN ATION; ES T, TAXI NONEMERGE A0100 [facility] 3 TRANS[facility] HEALTH TRANSPORT ENTERPRIS MANAGEMEN ATION; ES T, TAXI NONEMERGE A0100 [facility] 3 TR[facility] TRANSPORT ENTERPRIS MANAGEMEN ATION; ES T, TAXI O2 CONC 1 [id number] [facility] MEDICAL MEDICAL 85%/>02 [facility] FLW RATE NONEMERGE A0100 [facility] 3 TRANS[facility] HEALTH TRANSPORT ENTERPRIS MANAGEMEN ATION; ES T, TAXI NONEMERGE A0100 [facility] 3 [facility] TRANSPORT ENTERPRIS MANAGEMEN ATION; ES T, TAXI NONEMERGE A0100 [facility] 3 [facility] TRANSPORT ENTERPRIS MANAGEMEN ATION; ES T, TAXI NONEMERGE A0100 [facility] 3 [facility] TRANSPORT ENTERPRIS MANAGEMEN ATION; ES T, [facility] HOME CARE S5108 [facility] [address] [facility] D AREA D AREA CARE AGENCY AGENCY CLIENT PER 15 MIN NONEMERGE A0100 [facility] 3 [facility] TRANSPORT ENTERPRIS MANAGEMEN ATION; ES T, TAXI NONEMERGE A0100 [facility] 3 [facility] TRANSPORT ENTERPRIS MANAGEMEN ATION; ES T, TAXI NONEMERGE A0100 [facility] 3 [facility] TRANSPORT ENTERPRIS MANAGEMEN ATION; ES T, TAXI NONEMERGE A0100 [facility] 3 [facility] TRANSPORT ENTERPRIS MANAGEMEN ATION; ES T, TAXI NONEMERGE A0100 [facility] 3 TR[facility] TRANSPORT ENTERPRIS MANAGEMEN ATION; ES T, TAXI PROTHROMB [id number] [facility] IN TIME 3 O MEDICAL O MEDICAL ASSOC LA ASSOC LA NONEMERGE A0100 [facility] 3 [facility] TRANSPORT ENTERPRIS MANAGEMEN ATION; ES T, TAXI NONEMERGE A0100 [facility] 3 [facility] TRANSPORT ENTERPRIS MANAGEMEN ATION; ES T, TAXI NONEMERGE A0100 [facility] 3 TR[facility] HEALTH TRANSPORT ENTERPRIS MANAGEMEN ATION; ES T, TAXI NONEMERGE A0100 [facility] 3 [facility] TRANSPORT ENTERPRIS MANAGEMEN ATION; ES T, TAXI PROTHROMB [id number] [facility] O MEDICAL O MEDICAL ASSOC LA ASSOC LA NONEMERGE A0100 [facility] 3 [facility] TRANSPORT ENTERPRIS MANAGEMEN ATION; ES T, TAXI NONEMERGE A0100 [facility] 3 TRANS[facility] TRANSPORT ENTERPRIS MANAGEMEN ATION; ES T, [facility] HOME CARE S5108 [facility] 3 [facility] [facility] HOME D AREA D AREA CARE AGENCY AGENCY CLIENT PER [address] [facility] 3 [facility] TRANSPORT ENTERPRIS MANAGEMEN ATION; ES T, TAXI NONEMERGE A0100 [facility] 3 [facility] TRANSPORT ENTERPRIS MANAGEMEN ATION; ES T, TAXI PROTHROMB 48107 [facility] IN TIME 3 O MEDICAL O MEDICAL ASSOC LA ASSOC LA HEMOGLOBI 13803 [facility] N 3 O MEDICAL O MEDICAL GLYCOSYLA ASSOC LA ASSOC LA DOTTIE A1C COLLECTIO 35393 [facility] N VENOUS 3 O MEDICAL O MEDICAL BLOOD ASSOC LA ASSOC LA VENIPUNCT URE BLOOD 42599 [facility] COUNT 3 O MEDICAL O MEDICAL COMPLETE ASSOC LA ASSOC LA AUTO&AUTO DIFRNTL WBC COMPREHEN 25172 [facility] SIVE 3 O MEDICAL O MEDICAL METABOLIC ASSOC LA ASSOC LA PANEL LIPID 61483 [facility] PANEL 3 O MEDICAL O MEDICAL ASSOC LA ASSOC LA NONEMERGE A0100 [facility] 3 [facility] TRANSPORT ENTERPRIS MANAGEMEN ATION; ES T, TAXI NONEMERGE A0100 [facility] 3 TRANS[employer] HEALTH TRANSPORT ENTERPRIS MANAGEMEN ATION; ES T, TAXI O2 CONC 1 E1390 [facility] MEDICAL MEDICAL 85%/>02 [facility] AT [facility] FLW RATE NONEMERGE A0100 [facility] 3 [facility] HEALTH TRANSPORT ENTERPRIS MANAGEMEN ATION; ES T, TAXI NONEMERGE A0100 [facility] 3 TR[facility] HEALTH TRANSPORT ENTERPRIS MANAGEMEN ATION; ES T, TAXI NONEMERGE A0100 [facility] 3 TR[facility] HEALTH TRANSPORT ENTERPRIS MANAGEMEN ATION; ES T, TAXI HOME CARE S5108 [facility] 3 FORMERLY NAMED [facility] AREA AREA CARE AGENCY AGENCY CLIENT PER 15 MIN NONEMERGE A0100 [facility] 3 [facility] HEALTH TRANSPORT ENTERPRIS MANAGEMEN ATION; ES T, TAXI NONEMERGE A0100 [facility] 3 TRANS[facility] HEALTH TRANSPORT ENTERPRIS MANAGEMEN ATION; ES T, TAXI NONEMERGE A0100 [facility] 3 TRANS[facility] HEALTH TRANSPORT ENTERPRIS MANAGEMEN ATION; ES T, TAXI NONEMERGE A0100 [facility] 3 [facility] HEALTH TRANSPORT ENTERPRIS MANAGEMEN ATION; ES T, TAXI NONEMERGE A0100 [facility] 3 TRANS[facility] HEALTH TRANSPORT ENTERPRIS MANAGEMEN ATION; ES T, TAXI NONEMERGE A0100 [facility] 3 TRANSIT HEALTH TRANSPORT ENTERPRIS MANAGEMEN ATION; ES T, TAXI NONEMERGE A0100 [facility] 3 TRANS[facility] HEALTH TRANSPORT ENTERPRIS MANAGEMEN ATION; ES T, TAXI NONEMERGE A0100 [facility] 3 TRANS[facility] HEALTH TRANSPORT ENTERPRIS MANAGEMEN ATION; ES T, TAXI NONEMERGE A0100 [facility] 3 [facility] HEALTH TRANSPORT ENTERPRIS MANAGEMEN ATION; ES T, TAXI HOME CARE S5108 [facility] 3 FOR[facility] NAMED [facility] AREA AREA CARE AGENCY AGENCY CLIENT PER 15 MIN NONEMERGE A0100 [facility] 3 [facility] HEALTH TRANSPORT ENTERPRIS MANAGEMEN ATION; ES T, TAXI NONEMERGE A0100 [facility] 3 TRANSIT HEALTH TRANSPORT ENTERPRIS MANAGEMEN ATION; ES T, TAXI NONEMERGE A0100 [facility] 3 TRANSIT HEALTH TRANSPORT ENTERPRIS MANAGEMEN ATION; ES T, TAXI NONEMERGE A0100 [facility] 3 TRANS[facility] HEALTH TRANSPORT ENTERPRIS MANAGEMEN ATION; ES T, TAXI O2 CONC 1 E1390 [facility] 3 MEDICAL MEDICAL 85%/>02 [facility] AT [facility] FLW RATE NONEMERGE A0100 [facility] 3 TRANS[facility] HEALTH TRANSPORT ENTERPRIS MANAGEMEN ATION; ES T, TAXI NONEMERGE A0100 [facility] 3 TRANS[facility] HEALTH TRANSPORT ENTERPRIS MANAGEMEN ATION; ES T, TAXI NONEMERGE A0100 [facility] 3 TRANSIT HEALTH TRANSPORT ENTERPRIS MANAGEMEN ATION; ES T, TAXI NONEMERGE A0100 [facility] 3 TRANS[facility] HEALTH TRANSPORT ENTERPRIS MANAGEMEN ATION; ES T, TAXI HOME CARE S5108 [facility] [address] [facility]A D AREA CARE AGENCY AGENCY CLIENT PER 15 MIN NONEMERGE A0100 [facility] 3 TR[facility] HEALTH TRANSPORT ENTERPRIS MANAGEMEN ATION; ES T, TAXI NONEMERGE A0100 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 3 TRANSIT HEALTH TRANSPORT ENTERPRIS MANAGEMEN ATION; ES T, TAXI NONEMERGE A0100 [facility] 3 TRANSIT HEALTH TRANSPORT ENTERPRIS MANAGEMEN ATION; ES T, TAXI NONEMERGE A0100 [facility] 3 TRANS[facility] HEALTH TRANSPORT ENTERPRIS MANAGEMEN ATION; ES T, TAXI NONEMERGE A0100 [facility] 3 TRANSIT HEALTH TRANSPORT ENTERPRIS MANAGEMEN ATION; ES T, TAXI NONEMERGE A0100 [facility] 3 TRANSIT HEALTH TRANSPORT ENTERPRIS MANAGEMEN ATION; ES T, TAXI NONEMERGE A0100 [facility] 3 TRANSIT HEALTH TRANSPORT ENTERPRIS MANAGEMEN ATION; ES T, TAXI NONEMERGE A0100 [facility] 3 TRANS[facility] HEALTH TRANSPORT ENTERPRIS MANAGEMEN ATION; ES T, TAXI NONEMERGE A0100 [facility] 3 TRANSIT HEALTH TRANSPORT ENTERPRIS MANAGEMEN ATION; ES T, TAXI NONEMERGE A0100 [facility] 3 TRANSIT HEALTH TRANSPORT ENTERPRIS MANAGEMEN ATION; ES T, TAXI NONEMERGE A0100 [facility] 3 TRANSIT HEALTH TRANSPORT ENTERPRIS MANAGEMEN ATION; ES T, TAXI NONEMERGE A0100 [facility] 3 TRANSIT HEALTH TRANSPORT ENTERPRIS MANAGEMEN ATION; ES T, TAXI O2 CONC 1 E1390 [facility] 3 MEDICAL MEDICAL 85%/>02 OmnisioRSET [facility]is[facility] AT [facility] FLW RATE NONEMERGE A0100 [facility] 3 TRANSIT HEALTH TRANSPORT ENTERPRIS MANAGEMEN ATION; ES T, TAXI NONEMERGE A0100 [facility] 3 TRANSIT HEALTH TRANSPORT ENTERPRIS MANAGEMEN ATION; ES T, TAXI NONEMERGE A0100 [facility] 3 TRANS[facility] HEALTH TRANSPORT ENTERPRIS MANAGEMEN ATION; ES T, TAXI HOME CARE S5108 [facility] 3 [employer] HOME D AREA D AREA CARE AGENCY AGENCY CLIENT PER 15 MIN NONEMERGE A0100 [facility] 3 [facility] HEALTH TRANSPORT ENTERPRIS MANAGEMEN ATION; ES T, TAXI MISC [place] T1999 [facility] IT[facility] & 3 CUM[facility] CUM[facility] SPL D AREA D AREA RETAIL AGENCY AGENCY PURCHASE NOC NONEMERGE A0100 [facility] 3 TR[facility] HEALTH TRANSPORT ENTERPRIS MANAGEMEN ATION; ES T, TAXI NONEMERGE A0100 [facility] 3 TRANS[facility] HEALTH TRANSPORT ENTERPRIS MANAGEMEN ATION; ES T, TAXI NONEMERGE A0100 [facility] 3 TRANSIT HEALTH TRANSPORT ENTERPRIS MANAGEMEN ATION; ES T, TAXI NONEMERGE A0100 [facility] 3 TRANSIT HEALTH TRANSPORT ENTERPRIS MANAGEMEN ATION; ES T, TAXI RADIOLOGI 37517 [facility] C EXAM 3 MEDICINE JENNIFER BOTH & KNEES ORTHOPAED STANDING I ANTEROPOS T INJECTION J1040 [facility] 3 MEDICINE JENNIFER METHYLPRE & DNISOLONE ORTHOPAED ACETATE I 80 MG ARTHROCEN 80734 [facility] TESIS 3 MEDICINE JENNIFER ASPIR&/IN & J MAJOR ORTHOPAED JT/BURSA I W/O US NONEMERGE A0100 [facility] 3 [facility] HEALTH TRANSPORT ENTERPRIS MANAGEMEN ATION; ES T, TAXI NONEMERGE A0100 [facility] 3 TRANS[facility] HEALTH TRANSPORT ENTERPRIS MANAGEMEN ATION; ES T, TAXI NONEMERGE A0100 [facility] 3 TRANSIT HEALTH TRANSPORT ENTERPRIS MANAGEMEN ATION; ES T, TAXI NONEMERGE A0100 [facility] 3 TRANSIT HEALTH TRANSPORT ENTERPRIS MANAGEMEN ATION; ES T, TAXI NONEMERGE A0100 [facility] 3 TRANSIT HEALTH TRANSPORT ENTERPRIS MANAGEMEN ATION; ES T, TAXI HOME CARE S5108 [facility] 3 FORMERLY NAMED [facility] HOME D AREA D AREA CARE AGENCY AGENCY CLIENT PER 15 MIN NONEMERGE A0100 [facility] 3 [facility] HEALTH TRANSPORT ENTERPRIS MANAGEMEN ATION; ES T, TAXI NONEMERGE A0100 [facility] 3 TRANSIT HEALTH TRANSPORT ENTERPRIS MANAGEMEN ATION; ES T, TAXI PROTHROMB 86963 [facility] IN TIME 3 O MEDICAL O MEDICAL ASSOC LA ASSOC LA NONEMERGE A0100 [facility] 3 TRANSIT HEALTH TRANSPORT ENTERPRIS MANAGEMEN ATION; ES T, TAXI NONEMERGE A0100 [facility] 3 TRANS[facility] HEALTH TRANSPORT ENTERPRIS MANAGEMEN ATION; ES T, TAXI O2 CONC 1 E1390 [facility] 3 MEDICAL MEDICAL 85%/>02 [facility] [facility] CONC AT [facility] FLW RATE NONEMERGE A0100 [facility] 3 TRANSIT HEALTH TRANSPORT ENTERPRIS MANAGEMEN ATION; ES T, TAXI NONEMERGE A0100 [facility] 3 TRANSIT HEALTH TRANSPORT ENTERPRIS MANAGEMEN ATION; ES T, TAXI NONEMERGE A0100 [facility] 3 TRANSIT HEALTH TRANSPORT ENTERPRIS MANAGEMEN ATION; ES T, TAXI HOME CARE S5108 [facility] 3 [facility] AREA D AREA CARE AGENCY AGENCY CLIENT PER 15 MIN NONEMERGE A0100 [facility] 3 TRANSIT HEALTH TRANSPORT ENTERPRIS MANAGEMEN ATION; ES T, TAXI NONEMERGE A0100 [facility] 3 TRANSIT HEALTH TRANSPORT ENTERPRIS MANAGEMEN ATION; ES T, TAXI NONEMERGE A0100 [facility] 3 TRANSIT HEALTH TRANSPORT ENTERPRIS MANAGEMEN ATION; ES T, TAXI NONEMERGE A0100 [facility] 3 TRANSIT HEALTH TRANSPORT ENTERPRIS MANAGEMEN ATION; ES T, TAXI NONEMERGE A0100 [facility] 3 TRANSIT HEALTH TRANSPORT ENTERPRIS MANAGEMEN ATION; ES T, TAXI NONEMERGE A0100 [facility] 3 TRANSIT HEALTH TRANSPORT ENTERPRIS MANAGEMEN ATION; ES T, TAXI NONEMERGE A0100 [facility] 3 TRANSIT HEALTH TRANSPORT ENTERPRIS MANAGEMEN ATION; ES T, TAXI NONEMERGE A0100 [facility] 3 TRANSIT HEALTH TRANSPORT ENTERPRIS MANAGEMEN ATION; ES T, TAXI NONEMERGE A0100 [facility] 3 TRANSIT HEALTH TRANSPORT ENTERPRIS MANAGEMEN ATION; ES T, TAXI NONEMERGE A0100 [facility] 3 TRANSIT HEALTH TRANSPORT ENTERPRIS MANAGEMEN ATION; ES T, TAXI HOME CARE S5108 [facility] [address] [facility] D AREA D AREA CARE AGENCY AGENCY CLIENT PER 15 MIN NONEMERGE A0100 [facility] 3 [facility] HE[facility] TRANSPORT ENTERPRIS MANAGEMEN ATION; ES T, TAXI DEBRIDEME 12342 JUSTINE HARRIS NT NAIL 3 D FOOT & DEN ANY ANKLE METHOD CENT 6/> NONEMERGE A0100 [facility] 3 TRANSIT HEALTH TRANSPORT ENTERPRIS MANAGEMEN ATION; ES T, TAXI NONEMERGE A0100 [facility] 3 TRANSIT HEALTH TRANSPORT ENTERPRIS MANAGEMEN ATION; [...] MEDICAL MEDICAL 85%/>02 SOM[facility] S[facility]ET CONC AT [facility] FLW RATE NONEMERGE A0100 [facility] 3 TRANSIT HEALTH TRANSPORT ENTERPRIS MANAGEMEN ATION; ES T, TAXI NONEMERGE A0100 [facility] 3 TR[facility] HEALTH TRANSPORT ENTERPRIS MANAGEMEN ATION; ES T, TAXI LIPOPROTE 77947 [facility] IN BLOOD 3 [employer] NUMBERS & SUBCLASSE S LIPID 21479 [facility] PANEL 3 [employer] COLLECTIO 88917 [facility] N VENOUS 3 O MEDICAL O MEDICAL BLOOD ASSOC LA ASSOC LA VENIPUNCT URE NONEMERGE A0100 [facility] 3 [facility] TRANSPORT ENTERPRIS MANAGEMEN ATION; ES T, TAXI NONEMERGE A0100 [facility] 3 TRANS[facility] HEALTH TRANSPORT ENTERPRIS MANAGEMEN ATION; ES T, TAXI HOME CARE S5108 [facility] [address] [facility] D AREA D AREA CARE AGENCY AGENCY CLIENT PER 15 MIN NONEMERGE A0100 [facility] 3 TR[facility] HEALTH TRANSPORT ENTERPRIS MANAGEMEN ATION; ES T, TAXI NONEMERGE A0100 [facility] 3 [facility] HEALTH TRANSPORT ENTERPRIS MANAGEMEN ATION; ES T, TAXI NONEMERGE A0100 [facility] 3 TRANSIT HEALTH TRANSPORT ENTERPRIS MANAGEMEN ATION; ES T, TAXI NONEMERGE A0100 [facility] 3 TRANSIT HEALTH TRANSPORT ENTERPRIS MANAGEMEN ATION; ES T, TAXI NONEMERGE A0100 [facility] 3 TRANSIT HEALTH TRANSPORT ENTERPRIS MANAGEMEN ATION; ES T, TAXI HOME CARE S5108 [facility] TRA[facility] [address] [facility] D AREA D AREA CARE AGENCY AGENCY CLIENT PER 15 MIN NONEMERGE A0100 [facility] 3 [facility] HE[facility] TRANSPORT ENTERPRIS MANAGEMEN ATION; ES T, TAXI NONEMERGE A0100 [facility] 3 TRANS[facility] HEALTH TRANSPORT ENTERPRIS MANAGEMEN ATION; ES T, TAXI NONEMERGE A0100 [facility] 3 TRANSIT HEALTH TRANSPORT ENTERPRIS MANAGEMEN ATION; ES T, TAXI NONEMERGE A0100 [facility] 3 TRANS[facility] HEALTH TRANSPORT ENTERPRIS MANAGEMEN ATION; ES T, TAXI O2 CONC 1 E1390 [facility] 3 MEDICAL MEDICAL 85%/>02 [facility] [facility] CONC AT [facility] FLW RATE NONEMERGE A0100 [facility] 3 TRANS[facility] HEALTH TRANSPORT ENTERPRIS MANAGEMEN ATION; ES T, TAXI NONEMERGE A0100 [facility] 3 TRANSIT HEALTH TRANSPORT ENTERPRIS MANAGEMEN ATION; ES T, TAXI HOME CARE S5108 [facility] TRAIN[facility] 3 [employer] [facility] D AREA D AREA CARE AGENCY AGENCY CLIENT PER 15 MIN NONEMERGE A0100 [facility] 3 TRANSIT HEALTH TRANSPORT ENTERPRIS MANAGEMEN ATION; ES T, TAXI NONEMERGE A0100 [facility] 3 TRANS[facility] HEALTH TRANSPORT ENTERPRIS MANAGEMEN ATION; ES T, TAXI NONEMERGE A0100 [facility] 3 TRANS[facility] HEALTH TRANSPORT ENTERPRIS MANAGEMEN ATION; ES T, TAXI NONEMERGE A0100 [facility] 3 [facility] HE[facility] TRANSPORT ENTERPRIS MANAGEMEN ATION; ES T, TAXI MISC [place] T1999 [facility] ITEMS & 3 FORMER[facility] NAMED [facility] SPL D AREA D AREA RETAIL AGENCY AGENCY PURCHASE NOC NONEMERGE A0100 [facility] 3 [facility] TRANSPORT ENTERPRIS MANAGEMEN ATION; ES T, TAXI NONEMERGE A0100 [facility] 3 TRANS[facility] HEALTH TRANSPORT ENTERPRIS MANAGEMEN ATION; ES T, TAXI HOME CARE S5108 [facility] TRAINING 3 FORMER[facility] NAMED [facility] AREA D AREA CARE AGENCY AGENCY CLIENT PER 15 MIN NONEMERGE A0100 [facility] 3 [facility] TRANSPORT ENTERPRIS MANAGEMEN ATION; ES T, TAXI NONEMERGE A0100 [facility] 3 [facility] HE[facility] TRANSPORT ENTERPRIS MANAGEMEN ATION; ES T, TAXI NONEMERGE A0100 [facility] 3 [facility] TRANSPORT ENTERPRIS MANAGEMEN ATION; ES T, TAXI ALBUTEROL J7613 [facility] & [facility] & H INHAL 3 DRUG DRUG NON-CP PROD THRU DME U DOSE 1 MG PHRM Q0513 F & H F & H DISPENSIN 3 DRUG DRUG G FEE INHALATIO N RX; PER 30 DAYS NONEMERGE A0100 [facility] 3 [facility]SP[facility] ENTERPRIS MANAGEMEN ATION; ES T, TAXI COLONOSCO 20607 AYANNA URENA STAR PY FLX DX 3 W/COLLJ SPEC WHEN PFRMD INJECTION J2250 [facility] BALJIT CO 3 HOSP INC HOSP INC MIDAZOLAM HCL PER 1 MG COLLECTIO 74822 [facility] N VENOUS 3 HOSP INC HOSP INC BLOOD VENIPUNCT URE PROTHROMB 76025 [facility] IN TIME 3 HOSP INC HOSP INC O2 CONC 1 E1390 [facility] 3 MEDICAL MEDICAL 85%/>02 SOMERSET SOMERSET CONC [facility] PRSC FLW RATE COLOREC G0121 [facility] CANCR 3 HOSP INC HOSP INC SCR; COLNSCPY NOT MEET HI RISK NONEMERGE A0100 [facility] 3 [facility]SP[facility] ENTERPRIS MANAGEMEN ATION; ES T, TAXI SBSQ 64387 [facility] 3 CARDIOLOG CARE/DAY Y 25 MINUTES INITIAL 78542 CARMITA LEIJA STAR OBSERVATI 3 MEDICAL ON GROUP CARE/DAY [place] 50 MINUTES INITIAL 71078 [facility] 3 CARDIOLOG CARE/DAY Y 50 MINUTES MYOCARDIA 28657 [facility] SPECT 3 CARDIOLOG MULTIPLE Y STUDIES ECG 47367 PRIETO ALBERT ROUTINE 3 EMERGENCY I RENEE ECG SERVICES W/LEAST 12 LDS I&R ONLY RADIOLOGI 28125 [facility] C 3 E MAYNOR EXAMINATI RADIOLOGY ON CHEST ASSOC SINGLE VIEW FRONTAL AMB A0427 [facility] SERVICE 3 EMS EMS ALS EMERGENCY TRANSPORT LEVEL 1 HOME CARE S5108 [facility] 3 [employer] AREA D AREA CARE AGENCY AGENCY CLIENT PER 15 MIN GROUND A0425 [facility] MILEAGE 3 EMS EMS PER STATUTE MILE NONEMERGE A0100 [facility] 2 [facility]SP[facility] ENTERPRIS MANAGEMEN ATION; ES T, TAXI NONEMERGE A0100 [facility] 2 [facility] TRANSPORT ENTERPRIS MANAGEMEN ATION; ES T, TAXI NONEMERGE A0100 [facility] 2 [facility] TRANSPORT ENTERPRIS MANAGEMEN ATION; ES T, TAXI NONEMERGE A0100 [facility] 2 [facility] TRANSPORT ENTERPRIS MANAGEMEN ATION; ES T, TAXI NONEMERGE A0100 [facility] 2 [facility] TRANSPORT ENTERPRIS MANAGEMEN ATION; ES T, TAXI NONEMERGE A0100 [facility] 2 TRANS[facility] HEALTH TRANSPORT ENTERPRIS MANAGEMEN ATION; ES T, TAXI HOME CARE S5108 [facility] TRAIN[facility] 2 [employer] AREA D AREA CARE AGENCY AGENCY CLIENT PER 15 MIN NONEMERGE A0100 [facility] 2 [facility] TRANSPORT ENTERPRIS MANAGEMEN ATION; ES T, TAXI NONEMERGE A0100 [facility] 2 [facility] TRANSPORT ENTERPRIS MANAGEMEN ATION; ES T, TAXI NONEMERGE A0100 [facility] 2 TRANS[facility] HEALTH TRANSPORT ENTERPRIS MANAGEMEN ATION; ES T, TAXI O2 CONC 1 E1390 [facility] 2 MEDICAL MEDICAL 85%/>02 S[facility] [facility] CONC AT [facility] FLW RATE NONEMERGE A0100 [facility] 2 [facility] TRANSPORT ENTERPRIS MANAGEMEN ATION; ES T, TAXI NONEMERGE A0100 [facility] 2 TRANS[facility] HEALTH TRANSPORT ENTERPRIS MANAGEMEN ATION; ES T, TAXI NONEMERGE A0100 [facility] 2 [facility] TRANSPORT ENTERPRIS MANAGEMEN ATION; ES T, TAXI HOME CARE S5108 [facility] 2 FORMER[facility] NAMED [facility] AREA D AREA CARE AGENCY AGENCY CLIENT PER 15 MIN NONEMERGE A0100 [facility] 2 [facility] TRANSPORT ENTERPRIS MANAGEMEN ATION; ES T, TAXI NONEMERGE A0100 [facility] 2 TRANSIT HEALTH TRANSPORT ENTERPRIS MANAGEMEN ATION; ES T, TAXI NONEMERGE A0100 [facility] 2 [facility] TRANSPORT ENTERPRIS MANAGEMEN [place]; [place] [address] [facility] HEAD/BRAI 2 IMAGING & PAUL N W/O CONTRAST INTERVENT MATERIAL I NONEMERGE A0100 [facility] 2 [facility]SP[facility] ENTERPRIS MANAGEMEN ATION; ES T, TAXI COMPREHEN 72316 [facility] SIVE 2 O MEDICAL O MEDICAL METABOLIC ASSOC LA ASSOC LA PANEL PROTHROMB 39435 [facility] IN TIME 2 O MEDICAL O MEDICAL ASSOC LA ASSOC LA COLLECTIO 40401 [facility] N VENOUS 2 O MEDICAL O MEDICAL BLOOD ASSOC LA ASSOC LA VENIPUNCT URE BLOOD 40353 [facility] COUNT 2 O MEDICAL O MEDICAL COMPLETE ASSOC LA ASSOC LA AUTO&AUTO DIFRNTL WBC NONEMERGE A0100 [facility] 2 [facility] HEALTH TRANSPORT ENTERPRIS MANAGEMEN ATION; ES T, TAXI NONEMERGE A0100 [facility] 2 [facility] TRANSPORT ENTERPRIS MANAGEMEN ATION; ES T, TAXI NONEMERGE A0100 [facility] 2 [facility] TRANSPORT ENTERPRIS MANAGEMEN ATION; ES T, TAXI HOME CARE S5108 [facility] 2 FORMERLY NAMED [facility] HOME D AREA D AREA CARE AGENCY AGENCY CLIENT PER 15 MIN NONEMERGE A0100 [facility] 2 [facility] TRANSPORT ENTERPRIS MANAGEMEN ATION; ES T, TAXI NONEMERGE A0100 [facility] 2 [facility] TRANSPORT ENTERPRIS MANAGEMEN ATION; ES T, TAXI NONEMERGE A0100 [facility] 2 [facility] TRANSPORT ENTERPRIS MANAGEMEN ATION; ES T, TAXI NONEMERGE A0100 [facility] 2 [facility] TRANSPORT ENTERPRIS MANAGEMEN ATION; ES T, TAXI NONEMERGE A0100 [facility] 2 TRANS[facility] HE[facility] TRANSPORT ENTERPRIS MANAGEMEN ATION; ES T, TAXI O2 CONC 1 E1390 [facility] MED[facility] MEDICAL 85%/>02 [facility] FLW RATE NONEMERGE A0100 [facility] 2 TRANS[facility] HEALTH TRANSPORT ENTERPRIS MANAGEMEN ATION; ES T, TAXI NONEMERGE A0100 [facility] 2 TR[facility] TRANSPORT ENTERPRIS MANAGEMEN ATION; ES T, TAXI NONEMERGE A0100 [facility] 2 [facility] TRANSPORT ENTERPRIS MANAGEMEN ATION; ES T, TAXI ALBUTEROL [id number] F & H F & H INHAL 2 DRUG DRUG NON-CP PROD THRU DME U DOSE 1 MG PHRM Q0513 F & H F & H DISPENSIN 2 DRUG DRUG G FEE INHALATIO N RX; PER 30 DAYS NONEMERGE A0100 [facility] 2 [facility] TRANSPORT ENTERPRIS MANAGEMEN ATION; ES T, TAXI NONEMERGE A0100 [facility] 2 TRANSIT HEALTH TRANSPORT ENTERPRIS MANAGEMEN ATION; ES T, TAXI HOME CARE S5108 [facility] TRAINING 2 [facility] D AREA D AREA CARE AGENCY AGENCY CLIENT PER 15 MIN NONEMERGE A0100 [facility] 2 [facility] TRANSPORT ENTERPRIS MANAGEMEN ATION; ES T, TAXI NONEMERGE A0100 [facility] 2 TRANSIT HEALTH TRANSPORT ENTERPRIS MANAGEMEN ATION; ES T, TAXI NONEMERGE A0100 [facility] 2 TRANS[facility] TRANSPORT ENTERPRIS MANAGEMEN ATION; ES T, TAXI NONEMERGE A0100 [facility] 2 [facility] TRANSPORT ENTERPRIS MANAGEMEN ATION; ES T, TAXI DEBRIDEME [id number] [facility] NT NAIL 2 D FOOT & DEN ANY ANKLE METHOD CENT 6/> NONEMERGE A0100 [facility] 2 [facility] TRANSPORT ENTERPRIS MANAGEMEN ATION; ES T, TAXI NONEMERGE A0100 [facility] 2 [facility] TRANSPORT ENTERPRIS MANAGEMEN ATION; ES T, TAXI COLLECTIO [id number] [facility] N VENOUS 2 O MEDICAL O MEDICAL BLOOD ASSOC LA ASSOC LA VENIPUNCT URE PROTHROMB [id number] [facility] IN TIME 2 O MEDICAL O MEDICAL ASSOC LA ASSOC LA COMPREHEN [id number] [facility] SIVE 2 O MEDICAL O MEDICAL METABOLIC ASSOC LA ASSOC LA PANEL LIPID 00395 [facility] PANEL 2 O MEDICAL O MEDICAL ASSOC LA ASSOC LA NONEMERGE A0100 [facility] 2 [facility] TRANSPORT ENTERPRIS MANAGEMEN ATION; ES T, TAXI NONEMERGE A0100 [facility] 2 [facility] TRANSPORT ENTERPRIS MANAGEMEN ATION; ES T, TAXI NONEMERGE A0100 [facility] 2 [facility] TRANSPORT ENTERPRIS MANAGEMEN ATION; ES T, TAXI NONEMERGE A0100 [facility] 2 [facility] TRANSPORT ENTERPRIS MANAGEMEN ATION; ES T, [facility] HOME CARE [id number] AREA CARE AGENCY AGENCY CLIENT PER 15 MIN NONEMERGE A0100 [facility] 2 [facility] TRANSPORT ENTERPRIS MANAGEMEN ATION; ES T, TAXI NONEMERGE A0100 [facility] 2 TRANSIT HEALTH TRANSPORT ENTERPRIS MANAGEMEN ATION; ES T, TAXI NONEMERGE A0100 [facility] 2 [facility] TRANSPORT ENTERPRIS MANAGEMEN ATION; ES T, TAXI O2 CONC 1 E1390 [facility] MEDICAL 85%/>02 [facility] FLW RATE NONEMERGE A0100 [facility] 2 [facility] TRANSPORT ENTERPRIS MANAGEMEN ATION; ES T, TAXI PROTHROMB 17828 [facility] TIME 2 O MEDICAL O [facility] ASSOC LA ASSOC LA NONEMERGE A0100 [facility] 2 [facility] TRANSPORT ENTERPRIS MANAGEMEN ATION; ES T, TAXI NONEMERGE A0100 [facility] 2 [facility]ALTH TRANSPORT ENTERPRIS MANAGEMEN ATION; ES T, [facility] HOME CARE S[address] AREA CARE AGENCY AGENCY CLIENT PER 15 MIN NONEMERGE A0100 [facility] 2 [facility] TRANSPORT ENTERPRIS MANAGEMEN ATION; ES T, TAXI PROTHROMB 32645 [facility] IN TIME 2 O MEDICAL O MEDICAL ASSOC LA ASSOC LA ALBUTEROL J7613 F & H F & H INHAL 2 DRUG DRUG NON-CP PROD THRU DME U DOSE 1 MG PHRM Q0513 [facility] & H F & H DISPENSIN 2 DRUG DRUG G FEE INHALATIO N RX; PER 30 DAYS NONEMERGE A0100 [facility] 2 [facility] TRANSPORT ENTERPRIS MANAGEMEN ATION; ES T, TAXI NONEMERGE A0100 [facility] 2 TRANSIT HEALTH TRANSPORT ENTERPRIS MANAGEMEN ATION; ES T, TAXI NONEMERGE A0100 [facility] 2 TRANSIT HEALTH TRANSPORT ENTERPRIS MANAGEMEN ATION; ES T, TAXI NONEMERGE A0100 [facility] 2 TRANSIT HEALTH TRANSPORT ENTERPRIS MANAGEMEN ATION; ES T, TAXI NON-INVAS 26472 JUST[facility] HARRIS TIKA 2 D FOOT & DEN PHYSIOLOG ANKLE IC STUDY CENT EXTREMITY 3 LEVLS NONEMERGE A0100 [facility] 2 TRANSIT HEALTH TRANSPORT ENTERPRIS MANAGEMEN ATION; ES T, TAXI NONEMERGE A0100 [facility] 2 TRANSIT HEALTH TRANSPORT ENTERPRIS MANAGEMEN ATION; ES T, [facility] HOME CARE S5108 [facility] 2 [facility] FLETCH[facility] HOME D AREA D AREA CARE AGENCY AGENCY CLIENT PER 15 MIN NONEMERGE A0100 [facility] 2 TRANSIT HEALTH TRANSPORT ENTERPRIS MANAGEMEN ATION; ES T, TAXI NONEMERGE A0100 [facility] 2 TRANSIT HEALTH TRANSPORT ENTERPRIS MANAGEMEN ATION; ES T, TAXI NONEMERGE A0100 [facility] 2 TRANSIT HEALTH TRANSPORT ENTERPRIS MANAGEMEN ATION; ES T, TAXI O2 CONC 1 E1390 [facility] MEDICAL MEDICAL 85%/>02 [facility] AT [facility] FLW RATE NONEMERGE A0100 [facility] 2 TRANS[facility] HEALTH TRANSPORT ENTERPRIS MANAGEMEN ATION; ES T, TAXI LANCETS A4259 [facility] LIBERTY PER BOX 2 MEDICAL MEDICAL OF 100 SUP[employer] SUP[employer] INC[employer] INC. NORMAL A4256 [facility] LOW AND 2 MEDICAL MEDICAL HIGH SUPPLY SUPPLY [employer]. R SOLUTION/ CHIPS BLD GLU A4253 [facility] TEST/REAG 2 MEDICAL MEDICAL T STRIPS SUPPLY SUPPLY HOME [employer] INC. GLU MON-50 NONEMERGE A0100 [facility] 2 TRANS[facility] HEALTH TRANSPORT ENTERPRIS MANAGEMEN ATION; ES T, TAXI NONEMERGE A0100 [facility] 2 TRANSIT HEALTH TRANSPORT ENTERPRIS MANAGEMEN ATION; ES T, TAXI NONEMERGE A0100 [facility] 2 TRANSIT HEALTH TRANSPORT ENTERPRIS MANAGEMEN ATION; ES T, [facility] HOME C[facility] S5108 [facility] 2 FORMERLY NAMED [facility] AREA AREA CARE AGENCY AGENCY CLIENT PER 15 MIN NONEMERGE A0100 [facility] 2 [facility] HEALTH TRANSPORT ENTERPRIS MANAGEMEN ATION; ES T, TAXI NONEMERGE A0100 [facility] 2 TRANSIT HEALTH TRANSPORT ENTERPRIS MANAGEMEN ATION; ES T, TAXI NONEMERGE A0100 [facility] 2 TRANSIT HEALTH TRANSPORT ENTERPRIS MANAGEMEN ATION; ES T, TAXI NONEMERGE A0100 [facility] 2 TRANSIT HEALTH TRANSPORT ENTERPRIS MANAGEMEN ATION; ES T, TAXI NONEMERGE A0100 [facility] 2 TRANS[facility] HEALTH TRANSPORT ENTERPRIS MANAGEMEN ATION; ES T, TAXI PROTHROMB 37433 [facility] IN TIME 2 O MEDICAL O MEDICAL ASSOC LA ASSOC LA NONEMERGE A0100 [facility] 2 TRANS[facility] HEALTH TRANSPORT ENTERPRIS MANAGEMEN ATION; ES T, TAXI NONEMERGE A0100 [facility] 2 TRANSIT HEALTH TRANSPORT ENTERPRIS MANAGEMEN ATION; ES T, TAXI NONEMERGE A0100 [facility] 2 TRANSIT HEALTH TRANSPORT ENTERPRIS MANAGEMEN ATION; ES T, TAXI NONEMERGE A0100 [facility] 2 TRANSIT HEALTH TRANSPORT ENTERPRIS MANAGEMEN ATION; ES T, [facility] S5108 [facility] 2 [facility] AREA CARE AGENCY AGENCY CLIENT PER 15 MIN NONEMERGE A0100 [facility] 2 TRANS[facility] HEALTH TRANSPORT ENTERPRIS MANAGEMEN ATION; ES T, TAXI PROTHROMB 97310 [facility] IN TIME 2 O MEDICAL O MEDICAL ASSOC LA ASSOC LA NONEMERGE A0100 [facility] 2 TRANS[facility] HEALTH TRANSPORT ENTERPRIS MANAGEMEN ATION; ES T, TAXI NONEMERGE A0100 [facility] 2 TRANSIT HEALTH TRANSPORT ENTERPRIS MANAGEMEN ATION; ES T, TAXI O2 CONC 1 E1390 [facility] MEDICAL MEDICAL 85%/>02 LLC LLC CONC AT [facility] FLW RATE NONEMERGE A0100 [facility] 2 TRANSIT HEALTH TRANSPORT ENTERPRIS MANAGEMEN ATION; ES T, TAXI NONEMERGE A0100 [facility] 2 TRANSIT HEALTH TRANSPORT ENTERPRIS MANAGEMEN ATION; ES T, TAXI NONEMERGE A0100 [facility] 2 TRANS[facility] HEALTH TRANSPORT ENTERPRIS MANAGEMEN ATION; ES T, [facility] S5108 [employer] TRA[facility]ING 2 [employer] [employer] D AREA D AREA CARE AGENCY AGENCY CLIENT PER 15 MIN NONEMERGE A0100 [facility] 2 [facility] HEALTH TRANSPORT ENTERPRIS MANAGEMEN ATION; ES T, TAXI ECG 70137 [facility] MURILLO ROUTINE 2 CARDIOLOG CARDIOLOG ECG Y Y W/LEAST 12 LDS W/I&R NONEMERGE A0100 [facility] 2 [facility] TRANSPORT ENTERPRIS MANAGEMEN ATION; ES T, TAXI NONEMERGE A0100 [facility] 2 TRANSIT HEALTH TRANSPORT ENTERPRIS MANAGEMEN ATION; ES T, TAXI NONEMERGE A0100 [facility] 2 TRANSIT HEALTH TRANSPORT ENTERPRIS MANAGEMEN ATION; ES T, TAXI NONEMERGE A0100 [facility] 2 TRANSIT HEALTH TRANSPORT ENTERPRIS MANAGEMEN ATION; ES T, TAXI PROTHROMB 80722 [facility] 2 O MEDICAL O MEDICAL ASSOC LA ASSOC LA NONEMERGE A0100 [facility] 2 TRANS[facility] HEALTH TRANSPORT ENTERPRIS MANAGEMEN ATION; ES T, TAXI NONEMERGE A0100 [facility] 2 TRANSIT HEALTH TRANSPORT ENTERPRIS MANAGEMEN ATION; ES T, [facility] HOME CARE S5108 [employer] TRAINING 2 [employer] [employer] D AREA D AREA CARE AGENCY AGENCY CLIENT PER 15 MIN ECHO 82595 [facility] R-T 2 CARDIOLOG 2D Y W/WOM-MOD E COMPL SPEC&COLR D NONEMERGE A0100 [facility] 2 TRANS[facility] HEALTH TRANSPORT ENTERPRIS MANAGEMEN ATION; ES T, TAXI NONEMERGE A0100 [facility] 2 TRANSIT HEALTH TRANSPORT ENTERPRIS MANAGEMEN ATION; ES T, TAXI NONEMERGE A0100 [facility] 2 TRANSIT HEALTH TRANSPORT ENTERPRIS MANAGEMEN ATION; ES T, TAXI NONEMERGE A0100 [facility] 2 TRANSIT HEALTH TRANSPORT ENTERPRIS MANAGEMEN ATION; ES T, TAXI O2 CONC 1 E1390 [facility] 2 MEDICAL MEDICAL 85%/>02 [facility] CONC AT [facility] FLW RATE NONEMERGE A0100 [facility] 2 TRANSIT HEALTH TRANSPORT ENTERPRIS MANAGEMEN ATION; ES T, TAXI NONEMERGE A0100 [facility] 2 TRANSIT HEALTH TRANSPORT ENTERPRIS MANAGEMEN ATION; ES T, [facility] HOME CARE S5108 [facility] TRAINING [address] [facility] D AREA D AREA CARE AGENCY AGENCY CLIENT PER 15 MIN INJECTION J1245 WOODLYNET FERNANDEZ JAY JAY 2 CARDIOLOG DIPYRIDAM Y OLE PER 10 MG MYOCARDIA 78345 WOODLYNET FERNANDEZ JAY JAY L SPECT 2 CARDIOLOG MULTIPLE Y STUDIES TECHNETIU A9500 ARGENISSHERIDAN FERNANDEZ JAY JAY M TC-99M 2 CARDIOLOG SESTAMIBI Y DX PER STUDY DOSE ECG 05117 CH[facility] KIMBALLA ROUTINE 2 CARDIOLOG ECG Y W/LEAST 12 LDS W/I&R NONEMERGE A0100 [facility] 2 TRANSIT HEALTH TRANSPORT ENTERPRIS MANAGEMEN ATION; ES T, TAXI NONEMERGE A0100 [facility] 2 TRANSIT HEALTH TRANSPORT ENTERPRIS MANAGEMEN ATION; ES T, TAXI INJECTION J1100 [facility] CALL 2 DEXAMETHO SONE SODIUM PHOSPHATE 1 MG ARTHROCEN 44419 [facility] CALL TESIS 2 ASPIR&/IN J MAJOR JT/BURSA W/O US NONEMERGE A0100 [facility] 2 [facility] TRANSPORT ENTERPRIS MANAGEMEN ATION; ES T, TAXI NONEMERGE A0100 [facility] 2 [facility] TRANSPORT ENTERPRIS MANAGEMEN ATION; ES T, TAXI MRI ANY 56516 [facility] JT LOWER 2 [facility]UM[facility] CUMBER[facility]AN EXTREM D D W/O REGIONAL REGIONAL CONTRAST HOS HOS MATRL NONEMERGE A0100 [facility] 2 [facility] TRANSPORT ENTERPRIS MANAGEMEN ATION; ES T, TAXI NONEMERGE A0100 [facility] 2 TRANS[facility] HEALTH TRANSPORT ENTERPRIS MANAGEMEN ATION; ES T, TAXI NONEMERGE A0100 [facility] 2 TRANSIT HEALTH TRANSPORT ENTERPRIS MANAGEMEN ATION; ES T, TAXI PROTHROMB 71764 [facility] IN TIME 2 O MEDICAL O MEDICAL ASSOC LA ASSOC LA HOME CARE S5108 [facility] TRAINING 2 FORMERLY NAMED [facility] HOME D AREA D AREA CARE AGENCY AGENCY CLIENT PER 15 MIN NONEMERGE A0100 [facility] 2 TRANS[facility] HEALTH TRANSPORT ENTERPRIS MANAGEMEN ATION; ES T, TAXI NONEMERGE A0100 [facility] 2 TRANSIT HEALTH TRANSPORT ENTERPRIS MANAGEMEN ATION; ES T, TAXI NONEMERGE A0100 [facility] 2 TRANSIT HEALTH TRANSPORT ENTERPRIS MANAGEMEN ATION; ES T, TAXI PROTHROMB 47930 [facility] IN TIME 2 O MEDICAL O MEDICAL ASSOC LA ASSOC LA DISPBL T4535 PERSONAL PERSONAL LINER/JARED 2 TOUCH TOUCH ELD/GUARD HOME FCI CARE /PAD/UNDG OF OF RMNT INCONT EA O2 CONC 1 E1390 [facility] 2 MEDICAL MEDICAL 85%/>02 [facility] CONC AT [facility] FLW RATE ECG 33648 [facility] ROUTINE [address] [facility] 2001LAN ECG D D W/LEAST REGIONAL REGIONAL 12 LDS HOS HOS TRCG ONLY W/O I&R PROTHROMB 35408 [facility] IN TIME 2 [facility] CUM[facility] D D REGIONAL REGIONAL HOS HOS THER 24150 [facility] PROPH/DX 2 [facility]UM[facility] NJX IV D D PUSH REGIONAL REGIONAL SINGLE/1S HOS HOS T SBST/DRUG CREATINE 20561 [facility] KINASE 2 [facility] TOTAL D D REGIONAL [facility]IONAL [facility]OS [facility] CREATINE 64239 [facility] K[facility]ASE MB 2 [place] [place] FRACTION D D ONLY [facility] BLOOD 05038 [facility] COUNT 2 [place] COMPLETE D D AUTO&AUTO REGIONAL REGIONAL DIFRNTL HOS HOS WBC COLLECTIO 03467 [facility] N VENOUS 2 [place] BLOOD D D VENIPUNCT [place] [address] [facility] TROPONIN 2 [facility] [place] QUANTITAT D D TIKA [facility] COMPREHEN 75509 [facility] SIVE 2 [facility] [place] METABOLIC D D PANEL [facility] GROUND A0425 [facility] MILEAGE 2 EMS EMS PER STATUTE MILE ECG 58148 PRIETO KELLEY ROUTINE 2 EMERGENCY KOL ECG SERVICES W/LEAST 12 LDS I&R ONLY RADIOLOGI 73871 [facility] C 2 [place]UM[place] EXAMINATI D D ON CHEST REGIONAL REGIONAL SINGLE HOS HOS VIEW FRONTAL AMB A0427 [facility] SERVICE 2 EMS EMS ALS EMERGENCY TRANSPORT LEVEL 1 NONEMERGE A0100 [facility] 2 [facility]ANS[facility] HEALTH TRANSPORT ENTERPRIS MANAGEMEN ATION; ES T, TAXI PROTHROMB 15647 [facility] IN TIME 2 O MEDICAL O MEDICAL ASSOC LA ASSOC LA HOME CARE S5108 [facility] TRAINING 2 [place] HOME D AREA D AREA CARE AGENCY AGENCY CLIENT PER 15 MIN HOME CARE S5108 [facility] TRAINING 2 [facility] [place] HOME D AREA D AREA CARE AGENCY AGENCY CLIENT PER 15 MIN NONEMERGE A0100 [facility] 2 [facility] TRANSPORT ENTERPRIS MANAGEMEN ATION; ES T, TAXI NONEMERGE A0100 [facility] 2 TRANSIT HEALTH TRANSPORT ENTERPRIS MANAGEMEN ATION; ES T, TAXI NEBULIZER E0570 [facility]STRO ERAZO WITH 2 MEDICAL MEDICAL COMPRESSO EQUIPMENT EQUIPMENT R RADEX 02699 [facility] FOREARM 2 2 [place] VIEWS D D REGIONAL REGIONAL HOS HOS RADIOLOGI 56[address] [facility] EXAM 2 [facility] [place] KNEE D D COMPLETE REGIONAL REGIONAL 4/MORE HOS HOS VIEWS STRAPPING 66432 PRIETO KIMBLE KNEE 2 EMERGENCY GRE SERVICES GROUND A0425 [facility] MILEAGE 2 EMS EMS PER STATUTE MILE NONEMERG A0120 [facility]URAL TRNSPRT: 2 TRANSIT TRANSIT [employer] ENTERPRIS ARN ES AREA/OTH SYS AMBULANCE A0429 [facility] SERVICE 2 EMS EMS BLS EMERGENCY TRANSPORT GROUND A0425 [facility] MILEAGE 2 EMS EMS PER STATUTE MILE COMPREHEN 68113 [facility] SIVE 2 HOSP INC HOSP INC METABOLIC PANEL NONINVASI 90009 [facility] VE 2 HOSP INC HOSP INC EAR/PULSE OXIMETRY SINGLE DETER ECG 63615 [facility] ROUTINE 2 COVERAGE LYN ECG W/LEAST CORPORATI 12 LDS I&R ONLY ECG 25162 [facility] ROUTINE 2 HOSP INC HOSP INC ECG W/LEAST 12 LDS TRCG ONLY W/O I&R PROTHROMB 78498 [facility] IN TIME 2 HOSP INC HOSP INC CREATINE 67976 [facility] KINASE 2 HOSP INC HOSP INC TOTAL BLOOD 17467 [facility] COUNT 2 HOSP INC HOSP INC COMPLETE AUTO&AUTO DIFRNTL WBC CREATINE 25230 [facility] KINASE MB 2 H[place] [address] [facility] TROPONIN 2 HOSP INC HOSP INC QUANTITAT TIKA COLLECTIO 20717 [facility] N VENOUS 2 HOSP INC HOSP INC BLOOD VENIPUNCT URE NATRIURET 27819 [facility] IC 2 HOSP INC HOSP INC PEPTIDE AMB A0427 [facility] SERVICE 2 EMS EMS ALS EMERGENCY TRANSPORT LEVEL 1 RADIOLOGI 84832 [facility] C 2 HOSP INC HOSP INC EXAMINATI ON CHEST SINGLE VIEW FRONTAL THROMBOPL 11283 [facility] ASTIN 2 HOSP INC HOSP INC TIME PARTIAL PLASMA/WH OLE BLOOD HOME CARE S5108 [facility] TRAINING [address] [facility] D AREA D AREA CARE AGENCY AGENCY CLIENT PER 15 MIN SBSQ 65688 [facility] 2 MEDICAL CARE/DAY GROUP 15 [facility] MINUTES SBSQ 75033 [place] [address] MEDICAL SCO CARE/DAY GROUP 15 [facility] SBSQ 67127 [facility] 2 MEDICAL CARE/DAY GROUP 25 [facility] SBSQ 28025 [facility] 2 MEDICAL CARE/DAY GROUP 25 [facility] MINUTES ARTHROCEN 25468 MICHELLE MARTINEZ TESIS 2 JR [facility] ASPIR&/IN J MAJOR JT/BURSA W/O RADIOLOGI 98760 MICHELLE MARTINEZ C EXAM 2 JR [facility] KNEE COMPLETE 4/MORE VIEWS RADIOLOGI 86585 IZABELA VEGA C 2 D. EXAMINATI RADIOLOGY ON KNEE ASSOC 1/2 VIEWS O2 [facility]C 1 E1390 [facility] 2 MEDICAL MEDICAL 85%/>02 [facility] CONC AT [facility] FLW RATE SBSQ 09848 [facility] 2 MEDICAL SCO CARE/[facility] GROUP 25 [facility] MINUTES INITIAL 98173 [facility] 2 MEDICAL EDW CARE/DAY GROUP 50 [facility] MINUTES RADIOLOGI 75032 IZABELA Tyler EXAM 2 KNEE RADIOLOGY COMPLETE ASSOC 4/MORE VIEWS PROTHROMB 10188 [facility] IN TIME 2 O MEDICAL O MEDICAL ASSOC LA ASSOC LA RADIOLOGI 35181 [facility] C 2 O MEDICAL JUAN EXAMINATI ON KNEE ASSOCIATE 1/2 VIEWS NONEMERGE A0100 [facility] 2 [facility] TRANSPORT ENTERPRIS MANAGEMEN ATION; ES T, TAXI NONEMERGE A0100 [facility] 2 [facility]ANS[facility] TRANSPORT ENTERPRIS MANAGEMEN ATION; ES T, TAXI PROTHROMB 96672 [facility] IN TIME 2 O MEDICAL O MEDICAL ASSOC LA ASSOC LA SKIN TEST 12780 [facility] 2 CONUNTY [facility] SIS DEPART[facility] DEPARTM INTRADERM AL NONEMERGE A0100 [facility] 2 [facility]ANS[facility] HEALTH TRANSPORT ENTERPRIS MANAGEMEN ATION; ES T, TAXI HOME CARE S5108 [facility] TRAINING 2 [facility] D AREA D AREA CARE AGENCY AGENCY CLIENT PER 15 MIN NONEMERGE A0100 [facility] 2 TRANSIT HEALTH TRANSPORT ENTERPRIS MANAGEMEN ATION; ES T, TAXI NONEMERGE A0100 [facility] 2 TRANSIT HEALTH TRANSPORT ENTERPRIS MANAGEMEN ATION; ES T, TAXI NEBULIZER E0570 CASTRO ERAZO WITH 2 MEDICAL MEDICAL COMPRESSO EQUIPMENT EQUIPMENT R BLOOD 16664 [facility] COUNT 2 O MEDICAL O MEDICAL COMPLETE ASSOC LA ASSOC LA AUTO&[place] [address] [facility] THYROID 2 O MEDICAL O MEDICAL STIMULATI ASSOC LA ASSOC LA NG HORMONE TSH COLLECTIO 56612 [facility] N VENOUS 2 O MEDICAL O MEDICAL BLOOD ASSOC LA ASSOC LA VENIPUNCT URE HEMOGLOBI 58284 [facility] N 2 O MEDICAL O MEDICAL GLYCOSYLA ASSOC LA ASSOC LA DOTTIE A1C PROTHROMB 45878 [facility] IN TIME 2 O MEDICAL O MEDICAL ASSOC LA ASSOC LA COMPREHEN 80614 [facility] AL[facility] SIVE 2 O MEDICAL O MEDICAL METABOLIC ASSOC LA ASSOC LA PANEL LIPID 77131 [facility] PANEL 2 O MEDICAL O MEDICAL ASSOC LA ASSOC LA NONEMERGE A0100 [facility] 2 TRANSIT HEALTH TRANSPORT ENTERPRIS MANAGEMEN ATION; ES T, TAXI NONEMERGE A0100 [facility] 2 TRANSIT HEALTH TRANSPORT ENTERPRIS MANAGEMEN ATION; ES T, TAXI NONEMERGE A0100 [facility] 2 TRANSIT HEALTH TRANSPORT ENTERPRIS MANAGEMEN ATION; ES T, TAXI NONEMERGE A0100 [facility] 2 TRANSIT HEALTH TRANSPORT ENTERPRIS MANAGEMEN ATION; ES T, TAXI NONEMERGE A0100 [facility] 2 TRANSIT HEALTH TRANSPORT ENTERPRIS MANAGEMEN ATION; ES T, TAXI HOME CARE S5108 [facility] 2 [employer] [employer] D AREA D AREA CARE AGENCY AGENCY CLIENT PER 15 MIN NONEMERGE A0100 [facility] 2 TRANSIT HEALTH TRANSPORT ENTERPRIS MANAGEMEN ATION; ES T, TAXI PROTHROMB 61300 [facility] IN TIME 2 O MEDICAL O MEDICAL ASSOC LA ASSOC LA NONEMERGE A0100 [facility] 2 TRANSIT HEALTH TRANSPORT ENTERPRIS MANAGEMEN ATION; ES T, TAXI O2 CONC 1 E1390 [facility] 2 MEDICAL MEDICAL 85%/>02 [facility] CONC AT [facility] FLW RATE NONEMERGE A0100 [facility] 2 TRANSIT HEALTH TRANSPORT ENTERPRIS MANAGEMEN ATION; ES T, TAXI PROTHROMB 17946 [facility] IN TIME 2 O MEDICAL O MEDICAL ASSOC LA ASSOC LA NONEMERGE A0100 [facility] 2 TRANSIT HEALTH TRANSPORT ENTERPRIS MANAGEMEN ATION; ES T, T[facility] HOME CARE S5108 [facility] TRAINING 2 [employer] [employer] [place] D AREA D AREA CARE AGENCY AGENCY CLIENT PER 15 MIN NONEMERGE A0100 [facility] 2 TRANSIT HEALTH TRANSPORT ENTERPRIS MANAGEMEN ATION; ES T, TAXI NONEMERGE A0100 [facility] 2 TRANSIT HEALTH TRANSPORT ENTERPRIS MANAGEMEN ATION; ES T, TAXI NONEMERGE A0100 [facility] 2 TRANSIT HEALTH TRANSPORT ENTERPRIS MANAGEMEN ATION; ES T, [facility] 28931 [place] [facility] DIS[facility]GE 2 MEDICAL [facility] DAY GROUP MANAGEMEN [place] T 30 MIN/< NEBULIZER E0570 CASTRO ERAZO WITH 2 MEDICAL MEDICAL COMPRESSO EQUIPMENT EQUIPMENT R SBSQ 62070 [facility] 2 CARDIOLOG CARE/DAY Y 25 MINUTES GROUND A0425 [facility] MILEAGE 2 EMS EMS PER STATUTE MILE INITIAL 27635 [facility] 2 MEDICAL EDW CARE/DAY GROUP 50 [place] MINUTES MYOCARDIA 18990 [facility] L SPECT 2 CARDIOLOG MULTIPLE Y STUDIES DUPLEX 14468 [facility] SCAN 2 E MAYNOR EXTRACRAN RADIOLOGY IAL ART ASSOC COMPL BI STUDY ECHO 17365 [facility] TTHRC R-T 2 CARDIOLOG 2D Y W/WOM-MOD E COMPL SPEC&COLR D INITIAL 60293 [facility] 2 CARDIOLOG CARE/DAY Y 70 MINUTES AMB A0427 [facility] SERVICE 2 EMS EMS ALS EMERGENCY TRANSPORT LEVEL 1 MRI BRAIN 72206 [facility] SH[facility] BRAIN 2 RABIA STEM W/O RADIOLOGY CONTRAST ASSOC MATERIAL THROMBOPL 92725 [facility] ASTIN 2 HOSP INC HOSP INC TIME PARTIAL PLASMA/WH OLE BLOOD RADIOLOGI 73564 [facility] C 2 HOSP INC HOSP INC EXAMINATI ON CHEST SINGLE VIEW FRONTAL THERAPEUT 61081 [facility] IC 2 HOSP INC HOSP INC INJECTION IV PUSH EACH NEW DRUG INJECTION J2270 [facility] MORPHINE 2 HOSP INC HOSP INC SULFATE UP TO 10 [place] [address] [facility] TROPONIN 2 HOSP INC HOSP INC QUANTITAT TIKA COLLECTIO 83437 [facility] N VENOUS 2 [facility]P INC [facility] BLOOD VENIPUNCT URE BLOOD 86628 [facility] COUNT 2 [facility] COMPLETE AUTO&AUTO DIFRNTL WBC CREATINE [id number] [facility] KINASE MB 2 [facility]P INC [facility] INC FRACTION ONLY PROTHROMB 89948 [facility] IN TIME 2 HOSP INC H[facility]P INC THER 05484 [facility] PROPH/DX 2 [facility] INC H[facility]P INC NJX IV PUSH SINGLE/1S T SBST/DRUG CREATINE 64665 [facility] KINASE 2 HOSP INC HOSP INC TOTAL ECG 61237 [facility] ROUTINE 2 HOSP INC HOSP INC ECG W/LEAST 12 LDS TRCG ONLY W/O I&R ECG 04458 [facility] ROUTINE 2 COVERAGE [facility]YN ECG W/LEAST CORPORATI 12 LDS I&R ONLY NONINVASI 78929 [facility] VE 2 HOSP INC HOSP INC EAR/PULSE OXIMETRY SINGLE DETER COMPREHEN 90755 [facility] SIVE 2 HOSP INC HOSP INC METABOLIC PANEL NONEMERGE A0100 [facility] 2 TRANSIT HEALTH TRANSPORT ENTERPRIS MANAGEMEN ATION; ES T, [facility]I NONEMERGE A0100 [facility] 2 TRANSIT HEALTH TRANSPORT ENTERPRIS MANAGEMEN ATION; ES T, T[facility]I NONEMERGE A0100 [facility] 2 TRANSIT HEALTH TRANSPORT ENTERPRIS MANAGEMEN ATION; ES T, [facility] HOME CARE [id number] AREA D AREA CARE AGENCY AGENCY CLIENT PER 15 MIN NONEMERGE A0100 [facility] 2 TRANSIT HEALTH TRANSPORT ENTERPRIS MANAGEMEN ATION; ES T, TAXI NONEMERGE A0100 [facility] 2 TRANSIT HEALTH TRANSPORT ENTERPRIS MANAGEMEN ATION; ES T, TAXI NONEMERGE A0100 [facility] 2 TRANSIT HEALTH TRANSPORT ENTERPRIS MANAGEMEN ATION; ES T, TAXI PROTHROMB 95320 [facility] IN TIME 2 O MEDICAL O MEDICAL ASSOC LA ASSOC LA NONEMERGE A0100 [facility] 2 TRANSIT HEALTH TRANSPORT ENTERPRIS MANAGEMEN ATION; ES T, T[facility]I O2 CONC 1 E1390 [facility] 2 MEDICAL MEDICAL 85%/>02 [employer] CONC AT [facility] FLW RATE NONEMERGE A0100 RURAL [facility] 2 TRANSIT HEALTH TRANSPORT ENTERPRIS MANAGEMEN ATION; ES T, TAXI NONEMERGE A0100 [facility] 2 TRANSIT HEALTH TRANSPORT ENTERPRIS MANAGEMEN ATION; ES T, TAXI PROTHROMB 83107 [facility] IN TIME 2 O MEDICAL O MEDICAL ASSOC LA ASSOC LA NONEMERGE A0100 [facility] 2 TRANSIT HEALTH TRANSPORT ENTERPRIS MANAGEMEN ATION; ES T, [facility]I NONEMERGE A0100 [facility] 2 TRANSIT HEALTH TRANSPORT ENTERPRIS MANAGEMEN ATION; ES T, [facility] HOME CARE S5108 [facility] 2 [employer] [employer] [facility] D AREA D AREA CARE AGENCY AGENCY CLIENT PER 15 MIN NONEMERGE A0100 [facility] 2 TRANSIT TRANSIT TRANSPORT ENTERPRIS ENTERPRIS ATION; ES ES TAXI PROTHROMB 62284 [facility] IN TIME 2 O MEDICAL O MEDICAL ASSOC LA ASSOC LA NEBULIZER E0570 [facility] WITH 2 MEDICAL MEDICAL COMPRESSO EQUIPMENT EQUIPMENT R NONEMERGE A0100 [facility]PLACED BY [facility] 2 TRANSIT TRANSIT TRANSPORT ENTERPRIS ENTERPRIS ATION; ES ES TAXI NONEMERGE A0100 RURAL [facility] 2 TRANSIT TRANSIT TRANSPORT ENTERPRIS ENTERPRIS ATION; ES ES TAXI NONEMERGE A0100 [facility]URAL [facility] 2 TRANSIT TRANSIT TRANSPORT ENTERPRIS ENTERPRIS ATION; ES ES TAXI NONEMERGE A0100 [facility]PLACED BY [facility] 2 TRANSIT TRANSIT TRANSPORT ENTERPRIS ENTERPRIS ATION; ES ES TAXI SPRING-PO A4258 [facility] WERED 2 MEDICAL LUMBER CHAIN OFFBEARER SUPPLY SUPPLY FOR LANCET EACH LANCETS A4259 [facility] PER BOX 2 MEDICAL MEDICAL OF 100 SUPPLY SUPPLY BLD GLU [id number] LIBERTY LIBERTY TEST/REAG 2 MEDICAL MEDICAL T STRIPS SUPPLY SUPPLY HOME BLD GLU MON-50 DISPBL [id number] PERSONAL PERSONAL LINER/JARED 2 TOUCH TOUCH ELD/GUARD HOME FCI CARE /PAD/UNDG OF OF RMNT INCONT EA NONEMERGE A0100 [facility] 2 TRANSIT TRANSIT TRANSPORT ENTERPRIS ENTERPRIS ATION; ES ES TAXI INCONTINE T4541 PERSONAL PERSONAL NCE 2 TOUCH TOUCH PRODUCT HOME FCI CARE DISPOSABL OF OF E UNDPAD LARGE EA HOME CARE S5108 [facility] 2 FOR[facility] NAMED [facility] AREA AREA CARE AGENCY AGENCY CLIENT PER 15 MIN NONEMERGE A0100 RURAL [facility]ACED BY [facility] 2 TRANSIT TRANSIT TRANSPORT ENTERPRIS ENTERPRIS ATION; ES ES TAXI NONEMERGE A0100 RURAL REPLACED BY [facility] 2 TRANSIT TRANSIT TRANSPORT ENTERPRIS ENTERPRIS ATION; ES ES TAXI NONEMERGE A0100 [facility] 2 TRANSIT TRANSIT TRANSPORT ENTERPRIS ENTERPRIS ATION; ES ES TAXI O2 CONC 1 E1390 [facility] MEDICAL MEDICAL 85%/>02 [facility] AT [facility] FLW RATE NONEMERGE A0100 [facility] FLY 2 TRANSIT TRANSIT TRANSPORT ENTERPRIS ENTERPRIS ATION; ES ES TAXI NONEMERGE A0100 [facility] FLY 2 TRANSIT TRANSIT TRANSPORT ENTERPRIS ENTERPRIS ATION; ES ES TAXI NONEMERGE A0100 [facility] FLY 2 TRANSIT TRANSIT TRANSPORT ENTERPRIS ENTERPRIS ATION; ES ES TAXI HOME CARE S5108 [facility] 2 [facility] D AREA CARE AGENCY AGENCY CLIENT PER 15 MIN NONEMERGE A0100 RURAL REPLACED BY [facility] 2 TRANSIT TRANSIT TRANSPORT ENTERPRIS ENTERPRIS ATION; ES ES TAXI NONEMERGE A0100 [facility] 2 TRANSIT TRANSIT TRANSPORT ENTERPRIS ENTERPRIS ATION; ES ES TAXI PROTHROMB 42651 [facility] IN TIME 2 O MEDICAL O MEDICAL ASSOC LA ASSOC LA ALBUMIN 81355 LAB G[facility] LAB GALA URINE 2 AMERIC AMERIC MICROALBU HOLDING HOLDING MIN QUANTIATI VE CREATININ 19200 [facility] GALA E OTHER 2 [employer] 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 [address] [facility] THYROID 2 O MEDICAL O MEDICAL STIMULATI ASSOC LA ASSOC LA NG HORMONE TSH BLOOD 66385 [facility] COUNT 2 O MEDICAL O MEDICAL COMPLETE ASSOC LA ASSOC LA AUTO&AUTO DIFRNTL WBC COLLECTIO 18330 [facility] N VENOUS 2 O MEDICAL O MEDICAL BLOOD ASSOC LA ASSOC LA VENIPUNCT URE HEMOGLOBI 12245 [facility] N 2 O MEDICAL O MEDICAL GLYCOSYLA ASSOC LA ASSOC LA DOTTIE A1C COMPREHEN 45380 [facility] SIVE 2 O MEDICAL O MEDICAL METABOLIC ASSOC LA ASSOC LA PANEL LIPID 06960 [facility] PANEL 2 O MEDICAL O MEDICAL ASSOC LA ASSOC LA NONEMERGE A0100 [facility] 2 TRANSIT TRANSIT TRANSPORT ENTERPRIS ENTERPRIS ATION; ES ES TAXI NONEMERGE A0100 [facility] 2 TRANSIT TRANSIT TRANSPORT ENTERPRIS ENTERPRIS ATION; ES ES TAXI NONEMERGE A0100 [facility] 2 TRANSIT TRANSIT TRANSPORT ENTERPRIS ENTERPRIS ATION; ES ES TAXI NONEMERGE A0100 [facility]URAL [facility] 2 TRANSIT TRANSIT TRANSPORT ENTERPRIS ENTERPRIS ATION; ES ES TAXI NONEMERGE A0100 [facility]URAL [facility] 2 TRANSIT TRANSIT TRANSPORT ENTERPRIS ENTERPRIS ATION; ES ES TAXI NONEMERGE A0100 [facility]URAL [facility] 2 TRANSIT TRANSIT TRANSPORT ENTERPRIS ENTERPRIS ATION; ES ES TAXI HOME CARE S5108 [facility] 2 FORMERLY NAMED [facility] HOME D AREA D AREA CARE AGENCY AGENCY CLIENT PER 15 MIN NONEMERGE A0100 [facility] 2 TRANSIT TRANSIT TRANSPORT ENTERPRIS ENTERPRIS ATION; ES ES TAXI NONEMERGE A0100 RURAL RURAL [facility] 2 TRANSIT TRANSIT TRANSPORT ENTERPRIS ENTERPRIS ATION; ES ES TAXI O2 CONC 1 E1390 [facility] MEDICAL MEDICAL 85%/>02 [facility] CONC AT [facility] FLW RATE NONEMERGE A0100 [facility]URAL [facility] 2 TRANSIT TRANSIT TRANSPORT ENTERPRIS ENTERPRIS ATION; ES ES TAXI NONEMERGE A0100 [facility] 2 TRANSIT TRANSIT TRANSPORT ENTERPRIS ENTERPRIS ATION; ES ES TAXI NONEMERGE A0100 RURAL REPLACED BY [facility] 2 TRANSIT TRANSIT TRANSPORT ENTERPRIS ENTERPRIS ATION; ES ES T[facility]I HOME CARE S5108 [facility] 2 FORMERLY NAMED [facility] AREA D AREA CARE AGENCY AGENCY CLIENT PER 15 MIN NONEMERGE A0100 [facility] 1 TRANSIT HEALTH TRANSPORT ENTERPRIS MANAGEMEN ATION; ES T TAXI NONEMERGE A0100 [facility] 1 TRANSIT HEALTH TRANSPORT ENTERPRIS MANAGEMEN ATION; ES T TAXI NONEMERGE A0100 [facility] 1 TRANSIT HEALTH TRANSPORT ENTERPRIS MANAGEMEN ATION; ES T TAXI NONEMERGE A0100 [facility] 1 TRANSIT HEALTH TRANSPORT ENTERPRIS MANAGEMEN ATION; ES T TAXI NEBULIZER E0570 [facility] ERAZO WITH 1 MEDICAL MEDICAL COMPRESSO EQUIPMENT EQUIPMENT R NONEMERGE A0100 [facility] 1 TRANSIT HEALTH TRANSPORT ENTERPRIS MANAGEMEN ATION; ES T TAXI NONEMERGE A0100 [facility] 1 TRANSIT HEALTH TRANSPORT ENTERPRIS MANAGEMEN ATION; ES T TAXI NONEMERGE A0100 [facility] 1 TRANSIT HEALTH TRANSPORT ENTERPRIS MANAGEMEN ATION; ES T TAXI NONEMERGE A0100 [facility] 1 TRANSIT HEALTH TRANSPORT ENTERPRIS MANAGEMEN ATION; ES T [facility] HOME CARE S5108 [facility] 1 FORMERLY NAMED [facility] AREA AREA CARE AGENCY AGENCY CLIENT PER 15 MIN NONEMERGE A0100 [facility] 1 TRANSIT HEALTH TRANSPORT ENTERPRIS MANAGEMEN ATION; ES T TAXI NONEMERGE A0100 [facility] 1 TRANSIT HEALTH TRANSPORT ENTERPRIS MANAGEMEN ATION; ES T TAXI NONEMERGE A0100 [facility] 1 TRANSIT HEALTH TRANSPORT ENTERPRIS MANAGEMEN ATION; ES T TAXI NONEMERGE A0100 [facility] 1 TRANSIT HEALTH TRANSPORT ENTERPRIS MANAGEMEN ATION; ES T TAXI O2 CONC 1 E1390 [facility] MEDICAL MEDICAL 85%/>02 [facility] CONC AT [facility] FLW RATE NONEMERGE A0100 [facility] 1 TRANSIT HEALTH TRANSPORT ENTERPRIS MANAGEMEN ATION; ES T TAXI NONEMERGE A0100 [facility] 1 TRANSIT HEALTH TRANSPORT ENTERPRIS MANAGEMEN ATION; ES T TAXI NONEMERGE A0100 [facility] 1 TRANSIT HEALTH TRANSPORT ENTERPRIS MANAGEMEN ATION; ES T [facility]I HOME CARE S5108 [facility] TRAINING 1 [facility] D AREA D AREA CARE AGENCY AGENCY CLIENT PER 15 MIN NONEMERGE A0100 [facility] 1 TRANSIT HEALTH TRANSPORT ENTERPRIS MANAGEMEN ATION; ES T TAXI NONEMERGE A0100 [facility] 1 TRANSIT HEALTH TRANSPORT ENTERPRIS MANAGEMEN ATION; ES T [facility]I HOME CARE S5108 [facility] TRAINING 1 [facility] D AREA D AREA CARE AGENCY AGENCY CLIENT PER 15 MIN PROTHROMB 72013 [facility] IN TIME 1 O MEDICAL O MEDICAL [...] COMPRESSO EQUIPMENT EQUIPMENT R HOME CARE S5108 [facility] TRA[facility] 1 [facility] D AREA D AREA CARE AGENCY AGENCY CLIENT PER 15 MIN HOME CARE S5108 [facility] TRAINING 1 [facility] D AREA D AREA CARE AGENCY AGENCY CLIENT PER 15 MIN HOME CARE S5108 [facility] TRAINING 1 [facility] D AREA D AREA CARE AGENCY AGENCY CLIENT PER 15 MIN NONEMERGE A0100 [facility] 1 TRANSIT HEALTH TRANSPORT ENTERPRIS MANAGEMEN ATION; ES T TAXI HOME CARE S5108 [facility] 1 [facility] D AREA D AREA CARE AGENCY AGENCY CLIENT PER 15 MIN HOME CARE S5108 [facility] 1 [facility] D AREA D AREA CARE AGENCY AGENCY CLIENT PER 15 MIN NONEMERGE A0100 [facility] 1 TRANSIT HEALTH TRANSPORT ENTERPRIS MANAGEMEN ATION; ES T TAXI NONEMERGE A0100 [facility] 1 TRANSIT HEALTH TRANSPORT ENTERPRIS MANAGEMEN ATION; ES T TAXI HOME CARE S5108 [facility] 1 [facility] D AREA D AREA CARE AGENCY AGENCY CLIENT PER 15 MIN PROTHROMB 90205 [facility] IN TIME 1 O MEDICAL O MEDICAL ASSOC LA ASSOC LA HOME CARE S5108 [facility] D AREA D AREA CARE AGENCY AGENCY CLIENT PER 15 MIN NONEMERGE A0100 [facility] 1 TRANSIT HEALTH TRANSPORT ENTERPRIS MANAGEMEN ATION; ES T TAXI NONEMERGE A0100 [facility] 1 TRANSIT HEALTH TRANSPORT ENTERPRIS MANAGEMEN ATION; ES T TAXI NONEMERGE A0100 [facility] 1 TRANSIT HEALTH TRANSPORT ENTERPRIS MANAGEMEN ATION; ES T T[facility]I HOME CARE S5108 [facility] 1 [facility] D AREA D AREA CARE AGENCY AGENCY CLIENT PER 15 [address]B [id number] [place] [address] IN TIME 1 O MEDICAL O MEDICAL [...] CLIENT PER 15 MIN HOME CARE S5108 [facility] TRA[facility] 1 [facility] D AREA D AREA CARE AGENCY AGENCY CLIENT PER 15 MIN HOME CARE S5108 [facility] TRAIN[facility] 1 FORMERLY NAMED [facility] HOME D AREA D AREA CARE AGENCY AGENCY CLIENT PER 15 MIN NONEMERGE A0100 [facility] 1 TRANSIT HEALTH TRANSPORT ENTERPRIS MANAGEMEN ATION; ES T TAXI PROTHROMB 02441 [facility] IN TIME 1 O MEDICAL O MEDICAL ASSOC LA ASSOC LA HOME CARE S5108 [facility] TRAINING 1 [facility] ARE[facility] D AREA CARE AGENCY AGENCY CLIENT PER 15 MIN OBSERVATI 17942 MALLY MADELINE [place] CARE 1 MEDICAL DISCHARGE SERV FOUNDATIO MANAGEMEN T ECG 60805 MALLY SHEETS ELISA ROUTINE 1 MEDICAL ECG SERV W/LEAST FOUNDATIO 12 LDS I&R ONLY ELECTROEN 00040 MALLY GIUSEPPE GUL CEPHALOGR 1 MEDICAL AM W/REC SERV AWAKE&[place] [address] MALLY BARNES BAUDILIO HEAD/BRAI 1 MEDICAL N W/[place] [address] IZABELA WOOLDRIDG HEAD/BRAI 1 E MAYNOR N W/O RADIOLOGY CONTRAST ASSOC MATERIAL RADIOLOGI 82615 IZABELA LYN C 1 EXAMINATI RADIOLOGY ON CHEST ASSOC SINGLE VIEW FRONTAL ECG 30362 EMERGENCY ARANA ROUTINE 1 COVERAGE SEA ECG W/LEAST CORPORATI 12 LDS I&R ONLY NONINVASI 90166 [facility] CO VE 1 HOSP INC HOSP INC EAR/PULSE OXIMETRY SINGLE DETER INSJ TEMP 33989 [facility] NDWELLG 1 HOSP INC HOSP INC 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 SIMPLE SBSQ 02084 [facility] 1 MEDICAL CARE/DAY SERV 25 FOUNDATIO MINUTES INITIAL 11789 [facility] 1 MEDICAL CARE/DAY SERV 70 FOUNDATIO MINUTES MRA HEAD 17330 [place] ASHA KWA W/O 1 MEDICAL CONTRST SERV MATERIAL FOUNDATIO MRA NECK 76967 [place] ASHA KWA W/O 1 MEDICAL CONTRST SERV MATERIAL FOUNDATIO MRI BRAIN 21882 MALLY RENEE BRAIN 1 MEDICAL STEM W/[place] [address] [facility] HEAD/BRAI 1 HOSP INC HOSP INC N W/O CONTRAST MATERIAL DRUG SCR [id number] [facility] NOT 1 HOSP INC HOSP INC CHROMATOG RAPHIC; ANY NUMBER PT ENC AMB A0427 [facility] SERVICE 1 EMS EMS ALS EMERGENCY TRANSPORT LEVEL 1 INJECTION J1885 [facility] 1 HOSP INC HOSP INC KETOROLAC TROMETHAM INE PER 15 MG THROMBOPL 09096 [facility] ASTIN 1 HOSP INC HOSP INC TIME PARTIAL PLASMA/WH OLE BLOOD NONEMERGE A0100 [facility] 1 TRANSIT HEALTH TRANSPORT ENTERPRIS MANAGEMEN ATION; ES T TAXI HOME CARE S5108 [facility] [address] [facility] D AREA D AREA CARE AGENCY AGENCY CLIENT PER 15 MIN BLOOD 59173 [facility] COUNT 1 HOSP INC HOSP INC COMPLETE AUTO&AUTO DIFRNTL WBC COLLECTIO 59625 [facility] N VENOUS 1 HOSP INC HOSP INC BLOOD VENIPUNCT URE PROTHROMB 00222 [facility] IN TIME 1 HOSP INC HOSP INC THER 48867 [facility] PROPH/DX 1 HOSP INC HOSP INC NJX IV PUSH SINGLE/1S T SBST/DRUG GROUND A0425 [facility] MILEAGE 1 EMS EMS PER STATUTE MILE INSJ TEMP 71259 [facility] NDWELLG 1 HOSP INC HOSP INC 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 SIMPLE COMPREHEN 06609 [facility] SIVE 1 HOSP INC HOSP INC METABOLIC PANEL URNLS DIP 95409 [facility] 1 HOSP INC HOSP INC STICK/TAB LET RGNT AUTO W/O MICROSCOP Y NONINVASI 75126 [facility] VE 1 HOSP INC HOSP INC EAR/PULSE OXIMETRY SINGLE DETER NONEMERGE A0100 [facility] 1 TRANSIT HEALTH TRANSPORT ENTERPRIS MANAGEMEN ATION; ES T TAXI NONEMERGE A0100 [facility] 1 TRANSIT HEALTH TRANSPORT ENTERPRIS MANAGEMEN ATION; ES T TAXI NONEMERGE A0100 [facility] 1 TRANSIT HEALTH TRANSPORT ENTERPRIS MANAGEMEN [...] CLIENT PER 15 MIN NONEMERGE A0100 [facility] 1 TRANSIT HEALTH TRANSPORT ENTERPRIS MANAGEMEN ATION; ES T TAXI PROTHROMB 12113 [facility] IN TIME 1 O MEDICAL O MEDICAL [...] MEDICAL MEDICAL COMPRESSO EQUIPMENT EQUIPMENT R PROTHROMB 46749 [facility] IN TIME 1 O MEDICAL O MEDICAL ASSOC LA ASSOC LA HOME CARE S5108 [facility] D AREA D AREA CARE AGENCY AGENCY CLIENT PER 15 MIN NONEMERGE A0100 [facility] 1 TRANSIT HEALTH TRANSPORT ENTERPRIS MANAGEMEN ATION; ES T [facility]I HOME CARE S5108 [facility] 1 [facility] D AREA D AREA CARE AGENCY AGENCY CLIENT PER 15 MIN NONEMERGE A0100 [facility] 1 TRANSIT HEALTH TRANSPORT ENTERPRIS MANAGEMEN ATION; ES T TAXI NONEMERGE A0100 [facility] 1 TRANSIT HEALTH TRANSPORT ENTERPRIS MANAGEMEN ATION; ES T [facility]I HOME CARE S5108 [facility] 1 [facility] D AREA D AREA CARE AGENCY AGENCY CLIENT PER 15 MIN NONEMERGE A0100 [facility] 1 TRANSIT HEALTH TRANSPORT ENTERPRIS MANAGEMEN ATION; ES T TAXI NONEMERGE A0100 [facility] 1 TRANSIT HEALTH TRANSPORT ENTERPRIS MANAGEMEN ATION; ES T [facility]I HOME CARE S5108 [facility] 1 [facility] D AREA D AREA CARE AGENCY AGENCY CLIENT PER 15 MIN NONEMERGE A0100 [facility] 1 TRANSIT HEALTH TRANSPORT ENTERPRIS MANAGEMEN ATION; ES T TAXI HOME CARE S5108 [facility] 1 [facility] D AREA D AREA CARE AGENCY AGENCY CLIENT PER 15 MIN NONEMERGE A0100 [facility] 1 TRANSIT HEALTH TRANSPORT ENTERPRIS MANAGEMEN ATION; ES T TAXI HOME CARE S5108 [facility] 1 [facility] D AREA D AREA CARE AGENCY AGENCY CLIENT PER 15 MIN HOME CARE S5108 [facility] 1 [facility] D AREA D AREA CARE AGENCY AGENCY CLIENT PER 15 MIN NONEMERGE A0100 [facility] 1 TRANSIT HEALTH TRANSPORT ENTERPRIS MANAGEMEN ATION; ES T TAXI NONEMERGE A0100 [facility] 1 TRANSIT HEALTH TRANSPORT ENTERPRIS MANAGEMEN ATION; ES T TAXI NONEMERGE A0100 [facility] TRANSIT HEALTH TRANSPORT ENTERPRIS MANAGEMEN ATION; ES T [facility]I HOME CARE S5108 [facility] 1 [facility] D AREA D AREA CARE AGENCY AGENCY CLIENT PER 15 MIN NONEMERGE A0100 [facility] 1 TRANSIT HEALTH TRANSPORT ENTERPRIS MANAGEMEN ATION; ES T TAXI NONEMERGE A0100 [facility] 1 TRANSIT HEALTH TRANSPORT ENTERPRIS MANAGEMEN ATION; ES T TAXI HOME CARE S5108 [facility] 1 [facility] D AREA D AREA CARE AGENCY AGENCY CLIENT PER 15 MIN NONEMERGE A0100 [facility] 1 TRANSIT HEALTH TRANSPORT ENTERPRIS MANAGEMEN ATION; ES T TAXI NONEMERGE A0100 [facility] 1 TRANSIT HEALTH TRANSPORT ENTERPRIS MANAGEMEN ATION; ES T TAXI HOME CARE S5108 [facility] TRA[facility] [address] [facility] AREA D AREA CARE AGENCY AGENCY CLIENT PER 15 MIN NEBULIZER E0570 [facility] ERAZO WITH 1 MEDICAL MEDICAL COMPRESSO EQUIPMENT EQUIPMENT R HOME CARE S5108 [facility] TRAINING [address] AREA D AREA CARE AGENCY AGENCY CLIENT PER 15 MIN NONEMERGE A0100 [facility] 1 TRANSIT HEALTH TRANSPORT ENTERPRIS MANAGEMEN ATION; ES T TAXI NONEMERGE A0100 [facility] 1 TRANSIT HEALTH TRANSPORT ENTERPRIS MANAGEMEN ATION; ES T TAXI NONEMERGE A0100 [facility] 1 TRANSIT HEALTH TRANSPORT ENTERPRIS MANAGEMEN ATION; ES T TAXI NONEMERGE A0100 [facility] 1 TRANSIT HEALTH TRANSPORT ENTERPRIS MANAGEMEN ATION; ES T TAXI HOME CARE S5108 [facility] TRAINING [address] [facility] AREA D AREA CARE AGENCY AGENCY CLIENT PER 15 MIN CONTINUOU E0601 [facility] S 1 MEDICAL MEDICAL [employer] [facility] AIRWAY PRESSURE DEVICE HOME CARE S5108 [facility] TRA[facility] [address] [facility] AREA D AREA CARE AGENCY AGENCY CLIENT PER 15 MIN NONEMERGE A0100 [facility] 1 TRANSIT HEALTH TRANSPORT ENTERPRIS MANAGEMEN ATION; ES T TAXI NONEMERGE A0100 [facility] 1 TRANSIT HEALTH TRANSPORT ENTERPRIS MANAGEMEN ATION; ES T TAXI LIPID 71664 [facility] PANEL 1 O MEDICAL O MEDICAL ASSOC LA ASSOC LA COMPREHEN 39624 [facility] SIVE 1 O MEDICAL O MEDICAL METABOLIC ASSOC LA ASSOC LA PANEL BLOOD 55863 [facility] COUNT 1 O MEDICAL O MEDICAL COMPLETE ASSOC LA ASSOC LA AUTO&[place] [address] [facility] THYROID 1 O MEDICAL O MEDICAL STIMULATI ASSOC LA ASSOC LA NG HORMONE TSH HEMOGLOBI 06132 [facility] N 1 O MEDICAL O MEDICAL GLYCOSYLA ASSOC LA ASSOC LA DOTTIE A1C COLLECTIO 10600 [facility] N VENOUS 1 O MEDICAL O MEDICAL BLOOD ASSOC LA ASSOC LA VENIPUNCT URE PROTHROMB 86995 [facility] IN TIME 1 O MEDICAL O MEDICAL ASSOC LA ASSOC LA NONEMERGE A0100 [facility] 1 TRANSIT HEALTH TRANSPORT ENTERPRIS MANAGEMEN [...] CLIENT PER 15 MIN NONEMERGE A0100 [facility] 1 TRANSIT HEALTH TRANSPORT ENTERPRIS MANAGEMEN ATION; ES T TAXI NONEMERGE A0100 [facility] 1 TRANSIT HEALTH TRANSPORT ENTERPRIS MANAGEMEN ATION; ES T TAXI HOME CARE S5108 [facility] 1 [facility] D AREA D AREA CARE AGENCY AGENCY CLIENT PER 15 MIN NONEMERGE A0100 [facility] 1 TRANSIT HEALTH TRANSPORT ENTERPRIS MANAGEMEN ATION; ES T TAXI HOME CARE S5108 [facility] 1 [facility] D AREA D AREA CARE AGENCY AGENCY CLIENT PER 15 MIN HOME CARE S5108 [facility] D AREA D AREA CARE AGENCY AGENCY CLIENT PER 15 MIN NONEMERGE A0100 [facility] 1 TRANSIT HEALTH TRANSPORT ENTERPRIS MANAGEMEN ATION; ES T TAXI NONEMERGE A0100 [facility] 1 TRANSIT HEALTH TRANSPORT ENTERPRIS MANAGEMEN ATION; ES T TAXI HOME CARE S5108 [facility] TRAIN[facility] 1 [facility] D AREA D AREA CARE AGENCY AGENCY CLIENT PER 15 MIN HOME CARE S5108 [facility] TRA[facility] 1 [facility] D AREA D AREA CARE AGENCY AGENCY CLIENT PER 15 MIN NONEMERGE A0100 [facility] 1 TRANSIT HEALTH TRANSPORT ENTERPRIS MANAGEMEN ATION; ES T TAXI HOME CARE S5108 [facility] TRAINING 1 [facility] D AREA D AREA CARE AGENCY AGENCY CLIENT PER 15 MIN HOME CARE S5108 [facility] TRA[facility] D AREA D AREA CARE AGENCY AGENCY CLIENT PER 15 MIN NONEMERGE A0100 [facility] 1 TRANSIT HEALTH TRANSPORT ENTERPRIS MANAGEMEN ATION; ES T TAXI NONEMERGE A0100 [facility] 1 TRANSIT HEALTH TRANSPORT ENTERPRIS MANAGEMEN ATION; ES T TAXI NEBULIZER E0570 [facility]STR[facility] ERAZO WITH 1 MEDICAL MEDICAL COMPRESSO EQUIPMEN EQUIPMEN R SCREENING G0202 [facility] CO 1 HOSP INC HOSP INC MAMMOGRAP HY KARLA INCL CAD WHEN PERFORMD COMPUTER 85005 [facility] CO AIDED 1 HOSP INC HOSP INC DETECTION SCREENING MAMMOGRAP HY NONEMERGE A0100 [facility] 1 TRANSIT HEALTH TRANSPORT ENTERPRIS MANAGEMEN ATION; ES T TAXI HOME CARE S5108 [facility] TRA[facility] 1 [facility] AREA D AREA CARE AGENCY AGENCY CLIENT PER 15 MIN HOME CARE S5108 [facility] TRA[facility] 1 [facility] D AREA D AREA CARE AGENCY AGENCY CLIENT PER 15 MIN NONEMERGE A0100 [facility] 1 TRANSIT HEALTH TRANSPORT ENTERPRIS MANAGEMEN ATION; ES T TAXI NONEMERGE A0100 [facility] 1 TRANSIT HEALTH TRANSPORT ENTERPRIS MANAGEMEN ATION; ES T TAXI CONTINUOU E0601 [facility] 1 [facility] [employer] [facility] AIRWAY PRESSURE DEVICE PROTHROMB 79628 [facility] IN TIME 1 O MEDICAL O MEDICAL ASSOC LA ASSOC LA NONEMERGE A0100 [facility] 1 TRANSIT HEALTH TRANSPORT ENTERPRIS MANAGEMEN ATION; ES T TAXI HOME CARE S5108 [facility] 1 [facility] AREA D AREA CARE AGENCY AGENCY CLIENT PER 15 MIN HOME CARE S5108 [facility] 1 [facility] D AREA D AREA CARE AGENCY AGENCY CLIENT PER 15 MIN NONEMERGE A0100 [facility] 1 [facility] TRANSPORT ENTERPRIS MANAGEMEN ATION; ES T TAXI NONEMERGE A0100 [facility] 1 [facility] TRANSPORT ENTERPRIS MANAGEMEN ATION; ES T TAXI NONEMERGE A0100 [facility] 1 [facility] TRANSPORT ENTERPRIS MANAGEMEN ATION; ES T [facility] S5108 [facility] 1 [facility] D AREA CARE AGENCY AGENCY CLIENT PER 15 MIN HOME CARE S5108 [facility] 1 [facility] D AREA D AREA CARE AGENCY AGENCY CLIENT PER 15 MIN NONEMERGE A0100 [facility] NC[facility] 1 [facility]ANS[facility] TRANSPORT ENTERPRIS MANAGEMEN ATION; ES T TAXI NONEMERGE A0100 [facility] 1 [facility] TRANSPORT ENTERPRIS MANAGEMEN ATION; ES T [facility] S5108 [facility] 1 [facility] D AREA D AREA CARE AGENCY AGENCY CLIENT PER 15 MIN NONEMERGE A0100 [facility] 1 [facility] TRANSPORT ENTERPRIS MANAGEMEN ATION; ES T [facility] S5108 [facility] 1 [facility] D AREA CARE AGENCY AGENCY CLIENT PER 15 MIN PROTHROMB [id number] [facility] CREATINE 33566 [facility] KINASE 1 [facility] TOTAL CREATINE 74688 [facility] K[facility]ASE MB 1 [facility] FRACTION ONLY BLOOD 14296 [facility] COUNT [facility] COMPLETE AUTO&[place] [address] [facility] TROPONIN 1 [facility] QUANTITAT TIKA COLLECTIO 67566 [facility] N VENOUS 1 [facility] BLOOD VENIPUNCT URE INJECTION J2270 [facility] MORPHINE 1 [facility] SULFATE UP TO 10 MG NONINVASI 64726 [facility] VE 1 [facility] EAR/PULSE OXIMETRY SINGLE DETER BASIC 87306 [facility] METABOLIC 1 [facility] INC [facility] PANEL CALCIUM TOTAL OBSERVATI [id number] [facility] HUSSEIN COR ON CARE 1 [facility]OSPITAL- DISCHARGE HOSPITALI S MANAGEMEN T GROUND A0425 [facility] MILEAGE 1 EMS EMS PER STATUTE MILE COMPREHEN [id number] [facility] SIVE 1 [facility] METABOLIC PANEL NONINVASI 20121 [facility] VE 1 [facility] EAR/PULSE OXIMETRY SINGLE DETER ECG 37541 [facility] [place] R[facility]INE 1 [place] ELZ ECG W/LEAST CORPORATI 12 LDS I&R ONLY INJECTION J2270 [facility] MORPHINE 1 [facility]OSP INC [facility] INC SULFATE UP TO 10 MG COLLECTIO 74868 [facility] N VENOUS 1 [facility]OSP INC [facility] INC BLOOD VENIPUNCT URE IRON 67028 [facility] BINDING 1 [facility] HOS[facility] CAPACITY NATRIURET 27328 [facility] IC 1 [place] [address] [facility] TROPONIN 1 HOSP INC HOSP INC QUANTITAT TIKA BLOOD 90975 [facility] COUNT 1 [facility] COMPLETE AUTO&[place] [address] [facility] IRON [place] [address] [facility] THYROID 1 [facility] HOS[facility] INC STIMULATI NG HORMONE TSH CREATINE [id number] [facility] KINASE MB 1 HOSP [facility] HOSP [facility] FRACTION ONLY CREATINE 78675 [facility] KINASE 1 [facility] TOTAL PROTHROMB 44224 [facility] IN TIME 1 [facility] H[facility] INC ECG 45325 [facility] ROUTINE 1 [facility] HOSP INC ECG W/LEAST 12 LDS TRCG ONLY W/O I&[place] [address] [facility] THYROXINE 1 HOSP INC HOSP INC TOTAL RADIOLOGI 17307 [facility] C 1 HOSP INC HOSP INC EXAMINATI ON CHEST SINGLE VIEW FRONTAL AMB A0427 [facility] SERVICE 1 EMS EMS ALS EMERGENCY TRANSPORT LEVEL 1 HOME CARE S5108 [facility] TRAINING 1 [facility] HOME D AREA D AREA CARE AGENCY AGENCY CLIENT PER 15 MIN DISPBL T4535 PERSONAL PERSONAL LINER/JARED 1 TOUCH TOUCH ELD/GUARD HOME FCI CARE /PAD/UNDG OF OF RMNT INCONT EA INCONTINE T4541 PERSONAL PERSONAL NCE 1 TOUCH TOUCH PRODUCT HOME FCI CARE DISPOSABL OF OF E UNDPAD LARGE EA NONEMERGE A0100 [facility] 1 [facility] TRAN[facility] ENTERPRIS MANAGEMEN ATION; ES T TAXI NEBULIZER E0570 [facility] ERAZO WITH 1 MEDICAL MEDICAL COMPRESSO EQUIPMEN EQUIPMEN R 3D [id number] [facility] [employer] RENDERING 1 D. W/INTERP RADIOLOGY & ASSOC POSTPROCE SS SUPERVISI ON CT LUMBAR 70800 [facility] [employer] SPINE 1 D. W/O RADIOLOGY CONTRAST ASSOC MATERIAL NONEMERGE A0100 [facility] 1 [facility] TRANSP[facility] ENTERPRIS MANAGEMEN ATION; ES T TAXI HOME CARE S5108 [facility] TRAINING 1 [facility] D AREA D AREA CARE AGENCY AGENCY CLIENT PER 15 MIN HOME CARE S5108 [facility] TRAINING 1 [facility] HOME D [...] LLC USED W/POS ARWAY PRESS DEVICE NONINVASI 28409 [facility] VE 1 HOSP INC HOSP INC EAR/PULSE OXIMETRY SINGLE DETER TUBING A7037 [facility] USED WITH 1 [facility]ICAL [facility] [employer] [facility] LLC AIRWAY PRESSURE DEVICE GROUND A0425 [facility] MILEAGE 1 EMS EMS PER STATUTE MILE AMBULANCE A0429 [facility] SERVICE 1 EMS EMS BLS EMERGENCY [...] CLIENT PER 15 MIN NONEMERGE A0100 [facility] 1 [facility] TRANSP[facility] ENTERPRIS MANAGEMEN ATION; ES T TAXI NONEMERGE A0100 [facility] NCY 1 [facility] TRANSP[facility] ENTERPRIS MANAGEMEN ATION; ES T TAXI NONEMERGE A0100 [facility] FLY 1 [facility] TRANSPORT ENTERPRIS MANAGEMEN ATION; ES T TAXI HOME CARE S5108 [facility] 1 [facility] HOME D AREA D AREA CARE AGENCY AGENCY CLIENT PER 15 MIN NONINVASI 76982 [facility] VE 1 HOSP INC HOSP INC EAR/PULSE OXIMETRY SINGLE DETER RADEX 05396 [facility] SPINE 1 HOSP INC HOSP INC LUMBOSACR AL MINIMUM 4 VIEWS NONEMERGE A0100 [facility] FLY 1 [facility]SP[facility] ENTERPRIS MANAGEMEN ATION; ES T TAXI HOME CARE S5108 [facility] 1 JOEL[facility]IS[facility]EL [facility]DONAD[facility]ERL[facility] HOME D AREA D AREA CARE AGENCY AGENCY CLIENT PER 15 MIN NONEMERGE A0100 [facility]Y 1 [facility]SP[facility] ENTERPRIS MANAGEMEN ATION; ES T TAXI NONEMERGE A0100 [facility] NCY 1 [facility]SP[facility] ENTERPRIS MANAGEMEN ATION; ES T TAXI HOME CARE S5108 [facility] [address] [facility] AREA CARE AGENCY AGENCY CLIENT PER 15 MIN NONEMERGE A0100 [facility] NCY 1 [facility]SP[facility] ENTERPRIS MANAGEMEN ATION; ES T TAXI HOME CARE S5108 [facility] TRAINING [address] [facility] AREA CARE AGENCY AGENCY CLIENT PER 15 MIN NONINVASI 29945 [facility] VE 1 HOSP INC HOSP INC EAR/PULSE OXIMETRY SINGLE DETER OBSERVATI 66661 [facility] HUSSEIN COR ON CARE 1 HOSPITAL- DISCHARGE HOSPITALI S MANAGEMEN T COLLECTIO 56226 [facility] N VENOUS 1 HOSP INC HOSP INC BLOOD VENIPUNCT URE INJ J2930 [facility] METHYLPRD 1 HOSP INC HOSP INC NISOLONE SODIUM SUCCNAT TO 125 MG ECG 09499 [facility] ROUTINE 1 HOSP INC HOSP INC ECG W/LEAST 12 LDS TRCG ONLY W/O I&R PROTHROMB 66369 [facility] IN TIME 1 HOSP INC HOSP INC PROTHROMB 55748 [facility] IN TIME 1 HOSP INC HOSP INC CREATINE 83179 [facility] KINASE 1 HOSP INC HOSP INC TOTAL BLOOD 39656 [facility] COUNT 1 [facility]OSP INC HOSP INC COMPLETE AUTOMATED INJ J2930 [facility] METHYLPRD 1 HOSP INC HOSP INC NISOLONE SODIUM SUCCNAT TO 125 MG INJECTION J2270 [facility] MORPHINE 1 HOSP INC HOSP INC SULFATE UP TO 10 MG COLLECTIO 98630 [facility] N VENOUS 1 HOSP INC HOSP INC BLOOD VENIPUNCT URE CREATINE 20096 [facility] KINASE MB 1 H[place]P [place] [address] [facility] TROPONIN 1 HOSP INC HOSP INC QUANTITAT TIKA BASIC 50300 [facility] METABOLIC 1 [facility] INC PANEL CALCIUM TOTAL INITIAL 36707 [facility] HUSSEIN COR OBSERVATI 1 HOSPITAL- ON HOSPITALI CARE/DAY S 50 MINUTES NONINVASI 46654 [facility] VE 1 HOSP INC HOSP INC EAR/PULSE OXIMETRY SINGLE DETER PRESSURIZ 36411 [facility] ED/NONPRE 1 HOSP [facility] INC SSURIZED INHALATIO N TREATMENT CULTURE 09357 [facility] BACTERIAL 1 [facility]P [facility] BLOOD AEROBIC W/ID ISOLATES BASIC 48734 [facility] METABOLIC 1 [facility] [place] [address] [facility] TROPONIN 1 HOSP [facility] INC QUANTITAT TIKA CREATINE 40621 [facility] KINASE MB 1 HOSP [facility]P INC FRACTION ONLY BLOOD 56806 [facility] CO COUNT 1 [facility]P [facility] COMPLETE AUTO&AUTO DIFRNTL WBC COLLECTIO 80741 [facility] N VENOUS 1 [facility] INC BLOOD VENIPUNCT URE NONINVASI 78340 [facility] CO VE 1 [facility]P [facility] INC EAR/PULSE OXIMETRY SINGLE DETER THERAPEUT 45813 [facility] CO IC 1 [facility]P [facility] INJECTION IV PUSH EACH NEW DRUG INJ J2930 [facility] BALJIT CO METHYLPRD 1 HOSP [facility] HOSP INC NISOLONE SODIUM SUCCNAT TO 125 MG ARTERIAL 67301 [facility] CO PUNCTURE 1 HOSP [facility] INC WITHDRAWA L BLOOD DX BLOOD 60736 [facility] CO GASES ANY 1 HOSP [facility] COMBINATI ON PH PCO2 PO2 CO2 HCO3 ECG 03758 [facility] CO ROUTINE 1 [facility] ECG W/LEAST 12 LDS TRCG ONLY W/O I&R DEMO&/SUKHDEV 09354 [facility] BALJIT NE L OF PT 1 HOSP INC HOSP INC UTILIZ AERSL GEN/NEB/I NHLR/IP THER 95337 [facility] BALJIT NE PROPH/DX 1 HOSP INC HOSP INC NJX IV PUSH SINGLE/1S T SBST/DRUG CREATINE 63618 [facility] BALJIT NE KINASE 1 HOSP INC HOSP INC TOTAL PROTHROMB 40347 [facility] IN TIME 1 HOSP INC HOSP INC RADIOLOGI 75898 [facility] OLVERA JENNIFER C 1 IMAGING & EXAMINATI ON CHEST INTERVENT SINGLE I VIEW FRONTAL INJECTION J1885 [facility] 1 HOSP INC HOSP INC KETOROLAC TROMETHAM INE PER 15 MG THROMBOPL 73607 [facility] ASTIN 1 HOSP INC HOSP INC TIME PARTIAL PLASMA/WH OLE BLOOD HOME CARE S5108 [facility] TRAINING 1 [employer] HOME D AREA D AREA CARE AGENCY AGENCY CLIENT PER 15 MIN NONEMERGE A0100 [facility] NCY 1 [facility]SP[facility] ENTERPRIS MANAGEMEN ATION; ES T TAXI NONEMERGE A0100 [facility] FLY 1 [facility] TRANSPORT ENTERPRIS MANAGEMEN ATION; ES T TAXI HOME CARE S5108 [facility] 1 [employer] HOME D AREA D AREA CARE AGENCY AGENCY CLIENT PER 15 MIN NONEMERGE A0100 [facility] FLY 1 [facility] TRANSP[facility] ENTERPRIS MANAGEMEN ATION; ES T TAXI BLD GLU A4253 [facility] LIBERTY TEST/REAG 1 MEDICAL MEDICAL T STRIPS SUPPLY SUPPLY HOME BLD GLU MON-50 LANCETS A4259 [facility]ERTY PER BOX 1 MEDICAL MEDICAL OF 100 SUPPLY SUPPLY NONEMERGE A0100 [facility] FLY 1 [facility]SP[facility] ENTERPRIS MANAGEMEN ATION; ES T TAXI HOME CARE S5108 [facility]IN[facility] 1 [employer]LAN HOME D AREA D AREA CARE AGENCY AGENCY CLIENT PER 15 MIN NONEMERGE A0100 [facility] TRANSPORT ENTERPRIS MANAGEMEN ATION; ES T TAXI PHRM Q0513 F&H DRUGS F&H DRUGS DISPENSIN 1 INC INC G FEE INHALATIO N RX; PER 30 DAYS RADIOLOGI 10888 [facility] SKEENS C EXAM 1 IMAGING & PAUL CHEST 2 VIEWS INTERVENT FRONTAL&L I ATERAL ALBUTEROL J7613 F&H DRUGS F&H DRUGS INHAL 1 INC INC NON-CP PROD THRU DME U DOSE 1 MG NEBULIZER E0570 [facility] ERAZO WITH 1 MEDICAL MEDICAL COMPRESSO EQUIPMEN EQUIPMEN R ADMN SET A7003 [facility]ZO SM VOL 1 MEDICAL MEDICAL NONFILTR EQUIPMEN EQUIPMEN PNEUMAT NEBULIZR DISPBL NONEMERGE A0100 [facility] TRANSPORT ENTERPRIS MANAGEMEN ATION; ES T TAXI HOME CARE S5108 [facility] TRAINING 1 [employer] [employer] [email or web address] D AREA D AREA CARE AGENCY AGENCY CLIENT PER 15 MIN NONEMERGE A0100 [facility] TRANSPORT ENTERPRIS MANAGEMEN ATION; ES T TAXI NONEMERGE A0100 [facility] TRANSPORT ENTERPRIS MANAGEMEN ATION; ES T TAXI HOME CARE S5108 [facility] 1 [employer] D AREA D AREA CARE AGENCY AGENCY CLIENT PER 15 MIN NONEMERGE A0100 [facility] 1 [facility] TRANSPORT ENTERPRIS MANAGEMEN ATION; ES T TAXI NONEMERGE A0100 [facility] 1 [facility] TRANSPORT ENTERPRIS MANAGEMEN ATION; ES T TAXI HOME CARE S5108 [facility] 1 [employer] D AREA D AREA CARE AGENCY AGENCY CLIENT PER 15 MIN SLEEP STD 20204 OSIEL AGUILAR AGUILAR OSIEL AIRFLOW 1 MD HRT CONSULTIN RATE&O2 G SRV SAT EFFORT UNATT NONEMERGE A0100 [facility] TRANSPORT ENTERPRIS MANAGEMEN ATION; ES T TAXI NONEMERGE A0100 [facility] 1 [facility] TRANSPORT ENTERPRIS MANAGEMEN ATION; ES T TAXI HOME CARE S5108 [facility] TRAINING 1 [employer]LAN JOELBERL[facility] HOME D AREA D AREA CARE AGENCY AGENCY CLIENT PER 15 MIN HOME CARE S5108 [facility] TRAINING 1 JOELBERLAN JEOLBERLAN HOME D AREA D AREA CARE AGENCY AGENCY CLIENT PER 15 MIN NONEMERGE A0100 [facility] NCY 1 [facility] TRANSPORT ENTERPRIS MANAGEMEN ATION; ES T TAXI NONEMERGE A0100 [facility] NCY 1 [facility] TRANSPORT ENTERPRIS MANAGEMEN ATION; ES T TAXI HOME CARE S5108 [facility] TRAINING 1 JOELBERLAN JOEL[facility] HOME D AREA D AREA CARE AGENCY AGENCY CLIENT PER 15 MIN NONEMERGE A0100 [facility] NCY 1 [facility] TRANSPORT ENTERPRIS MANAGEMEN ATION; ES T TAXI NONEMERGE A0100 [facility] NCY 1 [facility] TRANSPORT ENTERPRIS MANAGEMEN ATION; ES T TAXI HOME CARE S5108 [facility] TRAINING 1 JOELBERISABEL MALDONADOBERLAN HOME D AREA D AREA CARE AGENCY AGENCY CLIENT PER 15 MIN DAY CARE S5100 [facility] 1 ADULT ADULT ADULT; HEALTH HEALTH PER 15 CARE LL CARE LL MINUTES HOME CARE S5108 [facility] TRAINING 1 JOELBERLAN JOELBERLAN HOME D AREA D AREA CARE AGENCY AGENCY CLIENT PER 15 MIN NONEMERGE A0100 [facility] NCY 1 [facility] TRANSPORT ENTERPRIS MANAGEMEN ATION; ES T TAXI NONEMERGE A0100 [facility] NCY 1 [facility] TRANSPORT ENTERPRIS MANAGEMEN ATION; ES T TAXI HOME CARE S5108 [facility] TRAINING 1 JOELBERLAN JOELBERL[facility] HOME D AREA D AREA CARE AGENCY AGENCY CLIENT PER 15 MIN NONEMERGE A0100 [facility] NCY 1 [facility] TRANSPORT ENTERPRIS MANAGEMEN ATION; ES T TAXI HOME CARE S5108 [facility] TRAINING 1 [place] JOELBERLAN HOME D AREA D AREA CARE AGENCY AGENCY CLIENT PER 15 MIN HOME CARE S5108 [facility] TRAINING 1 [place] HOME D AREA D AREA CARE AGENCY AGENCY CLIENT PER 15 MIN NONEMERGE A0100 [facility] NCY 1 [facility] TRANSPORT ENTERPRIS MANAGEMEN ATION; ES T TAXI NONEMERGE A0100 [facility] NCY 1 [facility] TRANSPORT ENTERPRIS MANAGEMEN ATION; ES T TAXI NONEMERGE A0100 [facility] NCY 1 [facility] TRANSPORT ENTERPRIS MANAGEMEN ATION; ES T TAXI NONEMERGE A0100 [facility] NCY 1 [facility] TRANSP[facility] ENTERPRIS MANAGEMEN ATION; ES T TAXI DIAB ONLY A5500 [facility] CUM[facility] CSTM 1 D FOOT D FOOT PREP&SPL AND ANKLE AND ANKLE SHOE MX DNSITY INSRT HOME CARE S5108 [facility] TRAINING 1 [place] HOME D AREA D AREA CARE AGENCY AGENCY CLIENT PER 15 MIN FOR DIAB A5512 [facility] CUMBERLAN ONLY MX 1 D FOOT D FOOT DNSITY AND ANKLE AND ANKLE INSRT DIR FORMD PRFAB EA HOME CARE S5108 [facility] TRAINING 1 [facility] HOME D AREA D AREA CARE AGENCY AGENCY CLIENT PER 15 MIN NONEMERGE A0100 [facility] NCY 1 [facility]SP[facility] ENTERPRIS MANAGEMEN ATION; ES T TAXI NONEMERGE A0100 [facility] NCY 1 [facility]SPORT ENTERPRIS MANAGEMEN ATION; ES T TAXI HOME CARE S5108 [facility] TRAINING 1 [facility] HOME D AREA D AREA CARE AGENCY AGENCY CLIENT PER 15 MIN NONEMERGE A0100 [facility] FLY 1 [facility]SP[facility] ENTERPRIS MANAGEMEN ATION; ES T TAXI NONEMERGE A0100 [facility] NCY 1 [facility]SP[facility] ENTERPRIS MANAGEMEN ATION; ES T TAXI HOME CARE S5108 [facility] TRAINING 1 [facility] HOME D AREA D AREA CARE AGENCY AGENCY CLIENT PER 15 MIN NONEMERGE A0100 [facility] NCY 1 [facility]SP[facility] ENTERPRIS MANAGEMEN ATION; ES T TAXI NONEMERGE A0100 [facility] FLY 1 [facility]SPORT ENTERPRIS MANAGEMEN ATION; ES T TAXI HOME CARE S5108 [facility] TRAINING 1 [facility] HOME D AREA D AREA CARE AGENCY AGENCY CLIENT PER 15 MIN NONEMERGE A0100 [facility] NCY 1 [facility]SP[facility] ENTERPRIS MANAGEMEN ATION; ES T TAXI NONEMERGE A0100 [facility] NCY 1 [facility]SP[facility] ENTERPRIS MANAGEMEN ATION; ES T TAXI HOME CARE S5108 [facility] 1 [facility] HOME D AREA D AREA CARE AGENCY AGENCY CLIENT PER 15 MIN HOME CARE S5108 [facility] 1 [place] [facility] HOME D AREA D AREA CARE AGENCY AGENCY CLIENT PER 15 MIN NONEMERGE A0100 [facility] NCY 1 [facility]SP[facility] ENTERPRIS MANAGEMEN ATION; ES T TAXI NONEMERGE A0100 [facility] NCY 1 [facility]SPORT ENTERPRIS MANAGEMEN ATION; ES T TAXI HOME CARE S5108 [facility] 1 [facility] HOME D AREA D AREA CARE AGENCY AGENCY CLIENT PER 15 MIN HOME CARE S5108 [facility] 1 [place] HOME D AREA D AREA CARE AGENCY AGENCY CLIENT PER 15 MIN NONEMERGE A0100 [facility] NCY 1 [facility]SP[facility] ENTERPRIS MANAGEMEN ATION; ES T TAXI HOME CARE S5108 [facility] 1 [facility] HOME D AREA D AREA CARE AGENCY AGENCY CLIENT PER 15 MIN THROMBOPL 11586 [facility] ASTIN 1 HOSP INC HOSP INC TIME PARTIAL PLASMA/WH OLE BLOOD NONEMERGE A0100 [facility] NCY 1 [facility] ENTERPRIS MANAGEMEN ATION; ES T TAXI COMPREHEN 33929 [facility] BALJIT CO SIVE 1 HOSP INC HOSP INC METABOLIC PANEL RADIOLOGI 22254 [facility] BALJIT CO C EXAM 1 HOSP INC HOSP INC CHEST 2 VIEWS FRONTAL&L ATERAL NONINVASI 76698 [facility] CO VE 1 HOSP INC HOSP INC EAR/PULSE OXIMETRY SINGLE DETER BLOOD 50563 [facility] COUNT 1 HOSP INC HOSP INC COMPLETE AUTO&AUTO DIFRNTL WBC CREATINE 68060 [facility] KINASE MB 1 HOSP [place] [address] [facility] TROPONIN 1 HOSP INC HOSP INC QUANTITAT TIKA COLLECTIO 42563 [facility] N VENOUS 1 HOSP INC HOSP INC BLOOD VENIPUNCT URE PROTHROMB 36786 [facility] IN TIME 1 HOSP INC HOSP INC CREATINE 32735 [facility] KINASE 1 HOSP INC HOSP INC TOTAL ECG 95686 [facility] ROUTINE 1 HOSP INC HOSP INC ECG W/LEAST 12 LDS TRCG ONLY W/O I&R NONEMERGE A0100 [facility] 1 [facility] ENTERPRIS MANAGEMEN ATION; ES T TAXI HOME CARE S5108 [facility] TRAINING [address] [facility] D AREA D AREA CARE AGENCY AGENCY CLIENT PER 15 MIN NONEMERGE A0100 [facility] NCY 1 [facility] ENTERPRIS MANAGEMEN ATION; ES T TAXI NONEMERGE A0100 [facility] FLY 1 [facility]SP[facility] ENTERPRIS MANAGEMEN ATION; ES T TAXI HOME CARE S5108 [facility] TRAINING 1 [facility] [employer] [facility] D AREA D AREA CARE AGENCY AGENCY CLIENT PER 15 MIN NONEMERGE A0100 [facility] NCY 1 [facility]SP[facility] ENTERPRIS MANAGEMEN ATION; ES T TAXI NONEMERGE A0100 [facility] TRANSP[facility] ENTERPRIS MANAGEMEN ATION; ES T TAXI HOME CARE S5108 [facility] TRAINING 1 [facility] AREA D AREA CARE AGENCY AGENCY CLIENT PER 15 MIN HOME CARE S5108 [facility] TRAINING 1 [facility] N[facility] AREA D AREA CARE AGENCY AGENCY CLIENT PER 15 MIN NONEMERGE A0100 [facility] NCY 1 [facility]SP[facility] ENTERPRIS MANAGEMEN ATION; ES T TAXI NONEMERGE A0100 [facility] FLY 1 [facility]SP[facility] ENTERPRIS MANAGEMEN ATION; ES T TAXI NONEMERGE A0100 [facility] FLY 1 [facility]SP[facility] ENTERPRIS MANAGEMEN ATION; ES T TAXI RADEX 28659 [facility] SPINE 1 O MEDICAL JUAN CERVICAL 2 OR 3 ASSOCIATE [facility] HOME CARE S5108 [facility] TRAINING 1 JOELBERLAN JOELBERLAN HOME D AREA D AREA CARE AGENCY AGENCY CLIENT PER 15 MIN BLOOD 39866 [facility] COUNT 1 O MEDICAL O MEDICAL COMPLETE ASSOC LA ASSOC LA AUTO&AUTO DIFRNTL WBC PROTHROMB 00590 [facility] TIME 1 O MEDICAL O MEDICAL ASSOC LA ASSOC LA COLLECTIO 59276 [facility] N VENOUS 1 O MEDICAL O MEDICAL BLOOD ASSOC LA ASSOC LA VENIPUNCT URE HEMOGLOBI 85118 [facility] N 1 O MEDICAL O MEDICAL GLYCOSYLA ASSOC [place] A1[place] [address] [facility] THYROID 1 O MEDICAL O MEDICAL STIMULATI ASSOC LA ASSOC LA NG HORMONE TSH COMPREHEN 31709 [facility] SIVE 1 O MEDICAL O MEDICAL METABOLIC ASSOC LA ASSOC LA PANEL LIPID 60395 [facility] PANEL 1 O MEDICAL O MEDICAL ASSOC LA ASSOC LA NONEMERGE A0100 [facility] NCY 1 [facility] ENTERPR[facility] MANAGEMEN ATION; ES T TAXI NONEMERGE A0100 [facility] NCY 1 [facility] ENTERPRIS MANAGEMEN ATION; ES T TAXI HOME CARE S5108 [facility] TRAINING [address] [facility] D AREA D AREA CARE AGENCY AGENCY CLIENT PER 15 MIN HOME CARE S5108 [facility] TRAINING 1 [employer] HOME D AREA D AREA CARE AGENCY AGENCY CLIENT PER 15 MIN NONEMERGE A0100 [facility] NCY 1 [facility] ENTERPR[facility] MANAGEMEN ATION; ES T TAXI HOME CARE S5108 [facility] TRAINING 1 [place] [employer] HOME D AREA D AREA CARE AGENCY AGENCY CLIENT PER 15 MIN NONEMERGE A0100 [facility] NCY 1 [facility] ENTERPRIS MANAGEMEN ATION; ES T TAXI NONEMERGE A0100 [facility] NCY 1 [facility]SP[facility] ENTERPRIS MANAGEMEN ATION; ES T TAXI HOME CARE S5108 [facility] TRAINING 1 [facility] HOME D AREA D AREA CARE AGENCY AGENCY CLIENT PER 15 MIN NONEMERGE A0100 [facility] NCY 1 [facility] ENTERPRIS MANAGEMEN ATION; ES T TAXI NONEMERGE A0100 [facility] NCY 1 [facility] ENTERPRIS MANAGEMEN [...] PERSONAL LINER/JARED 1 TOUCH TOUCH ELD/GUARD HOME FCI CARE /PAD/UNDG OF OF RMNT INCONT EA SPRING-PO A4258 [employer] WERED 1 MEDICAL LUMBER CHAIN OFFBEARER SUPPLY SUPPLY FOR LANCET EACH INCONTINE T4541 PERSONAL PERSONAL NCE 1 TOUCH TOUCH PRODUCT HOME FCI CARE DISPOSABL OF OF E UNDPAD LARGE EA NONEMERGE A0100 [facility] NCY 1 [facility] ENTERPRIS MANAGEMEN ATION; ES T TAXI NONEMERGE A0100 [facility] NCY 1 [facility]SP[facility] ENTERPRIS MANAGEMEN ATION; ES T TAXI HOME CARE S5108 [facility] TRAINING 1 [facility] D AREA D AREA CARE AGENCY AGENCY CLIENT PER 15 MIN HOME CARE S5108 [facility] TRAINING 1 [place] D AREA D AREA CARE AGENCY AGENCY CLIENT PER 15 MIN HOME CARE S5108 [facility] TRAINING 1 [place] D AREA D AREA CARE AGENCY AGENCY CLIENT PER 15 MIN HOME CARE S5108 [facility] TRAINING 1 [facility] D AREA D AREA CARE AGENCY AGENCY CLIENT PER 15 MIN SKIN TEST 43160 BALJIT SMI[facility] 1 CONUNTY [facility] SIS DEPARTM DEPARTM INTRADERM AL HOME CARE [...] AGENCY AGENCY CLIENT PER 15 MIN PROTHROMB 56038 [facility] IN TIME 1 O MEDICAL O MEDICAL ASSOC LA ASSOC LA HOME CARE S5108 [facility] 1 [place] D AREA D AREA CARE AGENCY AGENCY CLIENT PER 15 MIN NONEMERGE A0100 [facility] 1 TRANS[facility] HEALTH TRANSPORT ENTERPRIS MANAGEMEN ATION; ES T TAXI NONEMERGE A0100 [facility] 1 TRANSIT HEALTH TRANSPORT ENTERPRIS MANAGEMEN ATION; ES T TAXI NONEMERGE A0100 [facility] 1 TRANSIT HEALTH TRANSPORT ENTERPRIS MANAGEMEN ATION; ES T TAXI NONEMERGE A0100 [facility] 1 TRANSIT HEALTH TRANSPORT ENTERPRIS MANAGEMEN ATION; ES T T[facility]I HOME CARE S5108 [facility] 1 [facility] D AREA D AREA CARE AGENCY AGENCY CLIENT PER 15 [place] [address] [facility] LIPASE 1 HOSP INC HOSP INC BLOOD 43531 [facility] COUNT 1 HOSP INC HOSP INC COMPLETE AUTO&AUTO DIFRNTL WBC RADEX 83586 [facility] JENNIFER ABDOMEN 1 1 IMAGING & ANTEROPOS INTERVENT TERIOR I VIEW RADEX 10802 [facility] ABDOMEN 1 HOSP INC HOSP INC COMPL W/DCBTS&/ [place] [address] [facility] ABDOMEN 1 HOSP INC HOSP INC W/CONTRAS T MATERIAL ECG 31873 [facility] ROUTINE 1 HOSP INC HOSP INC ECG W/LEAST 12 LDS TRCG ONLY W/O I&[place] [address] [facility] AMYLASE 1 HOSP INC HOSP INC COLLECTIO 06177 [facility] N VENOUS 1 HOSP INC HOSP INC BLOOD VENIPUNCT URE COMPREHEN 75716 [facility] SIVE 1 HOSP INC HOSP INC METABOLIC PANEL URNLS DIP 52561 [facility] 1 HOSP INC HOSP INC STICK/TAB LET RGNT AUTO W/O MICROSCOP Y NONINVASI 61259 [facility] VE 1 HOSP INC HOSP INC EAR/PULSE OXIMETRY SINGLE DETER CT PELVIS 80321 [facility] 1 HOSP INC HOSP INC W/[place] [address] [facility] OLVERA JENNIFER ABDOMEN & 1 IMAGING & PELVIS W/CONTRAS INTERVENT T I MATERIAL AMBULANCE A0429 [facility] SERVICE 1 EMS EMS BLS EMERGENCY TRANSPORT GROUND A0425 [facility] MILEAGE 1 EMS EMS PER STATUTE MILE NONEMERGE A0100 [facility] FLY 1 [facility] TRANSPORT ENTERPRIS MANAGEMEN ATION; ES T [facility] HOME CARE S5108 [facility] 1 [employer] [facility] D AREA D AREA CARE AGENCY AGENCY CLIENT PER 15 MIN HOME CARE S5108 [facility] 1 [facility] HOME D AREA D AREA CARE AGENCY AGENCY CLIENT PER 15 MIN NONEMERGE A0100 [facility] 1 [facility] TRANSPORT ENTERPRIS MANAGEMEN ATION; ES T TAXI NONEMERGE A0100 [facility] 1 TRANSIT HEALTH TRANSPORT ENTERPRIS MANAGEMEN ATION; ES T TAXI NONEMERGE A0100 [facility] FLY 1 [facility] TRANSPORT ENTERPRIS MANAGEMEN [...] CLIENT PER 15 MIN NONEMERGE A0100 [facility] FLY 1 [facility] TRANSPORT ENTERPRIS MANAGEMEN [...] CLIENT PER 15 MIN NONEMERGE A0100 [facility] NCY 1 [facility]ALTH TRANSPORT ENTERPRIS MANAGEMEN ATION; ES T TAXI NONEMERGE A0100 [facility] FLY 1 [facility] TRANSPORT ENTERPRIS MANAGEMEN ATION; ES T TAXI HOME CARE S5108 [facility] TRAINING 1 [facility] D AREA D AREA CARE AGENCY AGENCY CLIENT PER 15 MIN NONEMERGE A0100 [facility] NCY 1 [facility] TRANSPORT ENTERPRIS MANAGEMEN ATION; ES T TAXI NONEMERGE A0100 [facility] NCY 1 [facility] TRANSPORT ENTERPRIS MANAGEMEN ATION; ES T [facility] HOME C[facility] S5108 [facility] TRAINING 1 [facility] ARE[facility] D AREA CARE AGENCY AGENCY CLIENT PER 15 MIN NONEMERGE A0100 [facility] FLY 1 [facility] HEALTH TRANSPORT ENTERPRIS MANAGEMEN ATION; ES T TAXI NONEMERGE A0100 [facility] NCY 0 [facility]ALTH TRANSPORT ENTERPRIS MANAGEMEN ATION; ES T T[facility] HOME CARE S5108 [facility] TRAINING 0 [place] [facility] [place] [employer] [facility] D AREA D AREA CARE AGENCY AGENCY CLIENT PER 15 MIN LIPID 37448 [facility] PANEL 0 O MEDICAL O [facility] LA ASSOC LA COLLECTIO 05571 [facility] N VENOUS 0 O MEDICAL O MEDICAL BLOOD ASSOC LA ASSOC LA VENIPUNCT URE PROTHROMB 97058 [facility] IN TIME 0 O MEDICAL O MEDICAL ASSOC LA ASSOC LA NONEMERGE A0100 [facility] NCY 0 [facility] TRANSPORT ENTERPRIS MANAGEMEN ATION; ES T TAXI NONEMERGE A0100 [facility] NCY 0 [facility] TRANSPORT ENTERPRIS MANAGEMEN ATION; ES T [facility]I HOME CARE S5108 [facility] TRAINING 0 [place] [employer] [place] [facility] [place] [facility] AREA D AREA CARE AGENCY AGENCY CLIENT PER 15 MIN HOME CARE S5108 [facility] TRAINING 0 [place] [employer] [place] [employer] [place] D AREA D AREA CARE AGENCY AGENCY CLIENT PER 15 MIN HOME CARE S5108 [facility] TRAINING 0 [place] [employer] [place] [facility] ARE[facility] D AREA CARE AGENCY AGENCY CLIENT PER 15 MIN NONEMERGE A0100 [facility] NCY 0 TRANSIT HEALTH TRANSPORT ENTERPRIS MANAGEMEN ATION; ES T TAXI NONEMERGE A0100 [facility] NCY 0 [facility]ALTH TRANSPORT ENTERPRIS MANAGEMEN ATION; ES T TAXI NONEMERGE A0100 [facility] NCY 0 [facility] TRANSPORT ENTERPRIS MANAGEMEN ATION; ES T TAXI PROTHROMB 40730 [facility] IN TIME 0 O MEDICAL O MEDICAL ASSOC LA ASSOC LA BLOOD 67928 [facility] COUNT 0 O MEDICAL O MEDICAL COMPLETE ASSOC LA ASSOC LA AUTO&AUTO DIFRNTL WBC COLLECTIO 23798 [facility] N VENOUS 0 O MEDICAL O MEDICAL BLOOD ASSOC LA ASSOC LA VENIPUNCT URE HEMOGLOBI 33998 [facility] N 0 O MEDICAL O MEDICAL GLYCOSYLA ASSOC LA ASSOC LA DOTTIE A1C COMPREHEN 44739 [facility] SIVE 0 O MEDICAL O MEDICAL METABOLIC ASSOC LA ASSOC LA PANEL NONEMERGE A0100 [facility] NCY 0 [facility] TRANSPORT ENTERPRIS MANAGEMEN ATION; ES T [facility] S5108 [facility] TRAINING 0 [facility] AREA D AREA CARE AGENCY AGENCY CLIENT PER 15 MIN NONEMERGE A0100 [facility] NCY 0 [facility] TRANSPORT ENTERPRIS MANAGEMEN ATION; ES T [facility] HOME CARE S5108 [facility] TRAINING 0 [facility] AREA D AREA CARE AGENCY AGENCY CLIENT PER 15 MIN NONEMERGE A0100 [facility] NCY 0 [facility] TRANSPORT ENTERPRIS MANAGEMEN ATION; ES T TAXI NONEMERGE A0100 [facility] NCY 0 [facility]ALTH TRANSPORT ENTERPRIS MANAGEMEN ATION; ES T TAXI NONEMERGE A0100 [facility] NCY 0 TRANSIT [facility]ALTH TRANSPORT ENTERPRIS MANAGEMEN ATION; ES T TAXI NONEMERGE A0100 [facility] NCY 0 TR[facility]ALTH TRANSPORT ENTERPRIS MANAGEMEN ATION; ES T TAXI NONEMERGE A0100 [facility] NCY 0 [facility] TRANSPORT ENTERPRIS MANAGEMEN ATION; ES T [facility] C[facility] S5108 [facility] TRAINING 0 [facility] AREA D AREA CARE AGENCY AGENCY CLIENT PER 15 MIN NONEMERGE A0100 [facility] NCY 0 [facility] TRANSPORT ENTERPRIS MANAGEMEN ATION; ES T TAXI NONEMERGE A0100 [facility] NCY 0 [facility] TRANSPORT ENTERPRIS MANAGEMEN ATION; ES T [facility] HOME CARE S5108 [facility] TRAINING 0 [facility] AREA D AREA CARE AGENCY AGENCY CLIENT PER 15 MIN NONEMERGE A0100 [facility] NCY 0 [facility] TRANSPORT ENTERPRIS MANAGEMEN ATION; ES T TAXI NONEMERGE A0100 [facility] NCY 0 TRANS[facility]ALTH TRANSPORT ENTERPRIS MANAGEMEN ATION; ES T [facility] HOME CARE S5108 [facility] TRAINING 0 [facility] AREA D AREA CARE AGENCY AGENCY CLIENT PER 15 MIN NONEMERGE A0100 [facility] NCY 0 [facility]ALTH TRANSPORT ENTERPRIS MANAGEMEN ATION; ES T TAXI NONEMERGE A0100 [facility] NCY 0 [facility]ALTH TRANSPORT ENTERPRIS MANAGEMEN [...] [facility] WILLAMS TRAINING 0 [facility] AREA D AREA CARE AGENCY AGENCY CLIENT PER 15 MIN NONEMERGE A0100 [facility] NCY 0 TRANSIT HEALTH TRANSPORT ENTERPRIS MANAGEMEN ATION; ES T TAXI NONEMERGE A0100 [facility] NCY 0 TRANS[facility]ALTH TRANSPORT ENTERPRIS MANAGEMEN ATION; ES T [facility] HOME CARE S5108 [facility] TRAINING 0 [facility] D AREA D AREA CARE AGENCY AGENCY CLIENT PER 15 MIN DISPBL [id number] PERSONAL PERSONAL LINER/JARED 0 TOUCH TOUCH ELD/GUARD HOME FCI CARE /PAD/UNDG OF OF RMNT INCONT EA INCONTINE T4541 PERSONAL PERSONAL NCE 0 TOUCH TOUCH PRODUCT HOME FCI CARE DISPOSABL OF OF E UNDPAD LARGE EA NONEMERGE A0100 [facility] NCY 0 [facility] TRANSPORT ENTERPRIS MANAGEMEN ATION; ES T TAXI NONEMERGE A0100 [facility] NCY 0 TRANSIT HEALTH TRANSPORT ENTERPRIS MANAGEMEN ATION; ES T [facility] HOME CARE S5108 [facility] TRAINING 0 [facility] AREA D AREA CARE AGENCY AGENCY CLIENT PER 15 MIN HOME CARE S5108 [facility] TRAINING 0 [facility] D AREA D AREA CARE AGENCY AGENCY CLIENT PER 15 MIN NONEMERGE A0100 [facility] NCY 0 TRANSIT [facility]ALTH TRANSPORT ENTERPRIS MANAGEMEN ATION; ES T TAXI NONEMERGE A0100 [facility] NCY 0 TRANSIT HEALTH TRANSPORT ENTERPRIS MANAGEMEN ATION; ES T TAXI NONEMERGE A0100 [facility] NCY 0 TRANS[facility]ALTH TRANSPORT ENTERPRIS MANAGEMEN ATION; ES T T[facility]I HOME CARE S5108 [facility] TRAINING [address] [facility] D AREA D AREA CARE AGENCY AGENCY CLIENT PER 15 MIN HOSPITAL 23813 [facility] DISCHARGE 0 D [facility] MANAGEMEN PHYSICIA T 30 MIN/< CV STRS 89211 BARB DAY TST 0 PAT PAT XERS&/OR RX CONT ECG W/O I&R SBSQ 44894 [facility] 0 D [facility] 25 PHYSICIA MINUTES OBSERVATI 19056 [facility] JESSFEMOISES ON/INPATI 0 [facility] S CARE 55 MINUTES GROUND A0425 [facility] MILEAGE 0 EMS EMS PER STATUTE MILE BASIC 11368 [facility] METABOLIC 0 HOSP INC HOSP INC PANEL CALCIUM TOTAL NONINVASI 97105 [facility] VE 0 [facility] EAR/PULSE OXIMETRY SINGLE DETER DUPLEX 34714 TALL TIMBERS JENNIFER SCAN 0 IMAGING & EXTRACRAN IAL ART INTERVENT COMPL BI I STUDY BLOOD 78726 [facility] BALJIT CO COUNT 0 HOSP INC HOSP INC COMPLETE AUTO&AUTO DIFRNTL WBC PROTHROMB 22642 [facility] IN TIME 0 HOSP INC HOSP INC CREATINE 58793 [facility] KINASE 0 [facility] TOTAL INITIAL 83776 [facility] 0 D [facility] 70 PHYSICIA MINUTES COLLECTIO 12221 [facility] N VENOUS 0 HOSP [facility] [place] [address] [facility] THYROID 0 HOSP INC H[facility]P [place] [address] [facility] TROPONIN 0 HOSP INC HOSP INC QUANTITAT TIKA CREATINE 94964 [facility] KINASE MB 0 HOSP INC HOSP INC FRACTION ONLY AMB A0427 [facility] SERVICE 0 EMS EMS [place] [address] [facility] HEAD/BRAI 0 HOSP INC HOSP INC N W/O CONTRAST MATERIAL THROMBOPL 65529 [facility] ASTIN 0 HOSP INC HOSP INC TIME PARTIAL PLASMA/WH OLE BLOOD NONEMERGE A0100 [facility] NCY 0 [facility] TRANSPORT ENTERPRIS MANAGEMEN ATION; ES T TAXI CREATINE 33711 [facility] K[facility]ASE MB 0 [facility] [place] [address] [facility] TROPONIN 0 HOSP INC HOSP INC QUANTITAT TIKA COLLECTIO 52387 [facility] N VENOUS 0 HOSP INC HOSP INC BLOOD VENIPUNCT URE CREATINE 37569 [facility] KINASE 0 HOSP INC HOSP INC TOTAL THER 17193 [facility] PROPH/DX 0 HOSP INC HOSP INC NJX IV PUSH SINGLE/1S T SBST/DRUG PROTHROMB 34202 [facility] IN TIME 0 HOSP INC H[facility]P [facility] BLOOD 45894 [facility] COUNT 0 [facility] INC COMPLETE AUTO&AUTO DIFRNTL WBC ECG 56319 [facility] ROUTINE 0 HOSP INC HOSP INC ECG W/LEAST 12 LDS TRCG ONLY W/O I&R NONINVASI 15981 [facility] VE 0 HOSP INC HOSP INC EAR/PULSE OXIMETRY SINGLE DETER ECG 28192 [facility] ROUTINE 0 COVERAGE ECG W/LEAST CORPORATI 12 LDS I&R ONLY ECHO 33670 [facility] TTHRC R-T 0 HOSP INC HOSP INC 2D W/WOM-MOD E COMPL SPEC&COLR D COMPREHEN 77549 [facility] SIVE 0 HOSP INC HOSP INC METABOLIC PANEL RADIOLOGI 30583 [facility] C EXAM 0 HOSP INC HOSP INC CHEST 2 VIEWS FRONTAL&L ATERAL CRITICAL 17179 [facility] CARE 0 COVERAGE ILL/INJUR ED CORPORATI PATIENT INIT 30-74 MIN NONEMERGE A0100 [facility] NCY 0 [facility] TRANSPORT ENTERPRIS MANAGEMEN ATION; ES T TAXI HOME CARE S5108 [facility] TRAINING 0 [facility] D AREA D AREA CARE AGENCY AGENCY CLIENT PER 15 MIN NONEMERGE A0100 [facility] NCY 0 [facility] TRANSPORT ENTERPRIS MANAGEMEN ATION; ES T TAXI NONEMERGE A0100 [facility] NCY 0 TRANS[facility] TRANSPORT ENTERPRIS MANAGEMEN ATION; ES T TAXI HOME CARE S5108 [facility] TRAINING 0 [facility] D AREA D AREA CARE AGENCY AGENCY CLIENT PER 15 MIN HOME CARE S5108 [facility] TRAINING 0 [facility] D AREA D AREA CARE AGENCY AGENCY CLIENT PER 15 MIN NONEMERGE A0100 [facility] NCY 0 [facility]ANS[facility]ALTH TRANSPORT ENTERPRIS MANAGEMEN ATION; ES T TAXI NONEMERGE A0100 [facility] NCY 0 TRANSIT HEALTH TRANSPORT ENTERPRIS MANAGEMEN ATION; ES T TAXI NONEMERGE A0100 [facility] NCY 0 TRANSIT HEALTH TRANSPORT ENTERPRIS MANAGEMEN [...] CLIENT PER 15 MIN NONEMERGE A0100 [facility] NCY 0 TRANS[facility] HEALTH TRANSPORT ENTERPRIS MANAGEMEN ATION; ES T TAXI NONEMERGE A0100 [facility] NCY 0 TRANSIT HEALTH TRANSPORT ENTERPRIS MANAGEMEN ATION; ES T TAXI NONEMERGE A0100 [facility] NCY 0 TRANS[facility] HEALTH TRANSPORT ENTERPRIS MANAGEMEN ATION; ES T TAXI HOME CARE S5108 [facility] TRAINING [address] [facility] AREA D AREA CARE AGENCY AGENCY CLIENT PER 15 MIN PROTHROMB 15479 [facility] IN TIME 0 O MEDICAL O MEDICAL ASSOC LA ASSOC LA NONEMERGE A0100 [facility] NCY 0 [facility] TRANSPORT ENTERPRIS MANAGEMEN ATION; ES T TAXI HOME CARE S5108 [facility] WILL[facility] TRAINING 0 [facility] [place] [facility] AREA D AREA CARE AGENCY AGENCY CLIENT PER 15 MIN NONEMERGE A0100 [facility] NCY 0 [facility] TRANSPORT ENTERPRIS MANAGEMEN ATION; ES T TAXI NONEMERGE A0100 [facility] NCY 0 TRANS[facility] HEALTH TRANSPORT ENTERPRIS MANAGEMEN ATION; ES T TAXI HOME CARE S5108 [facility] TRAINING [address] AREA D AREA CARE AGENCY AGENCY CLIENT PER 15 MIN NONEMERGE A0100 [facility] NCY 0 [facility] TRANSPORT ENTERPRIS MANAGEMEN ATION; ES T TAXI NONEMERGE A0100 [facility] NCY 0 [facility] TRANSPORT ENTERPRIS MANAGEMEN ATION; ES T TAXI HOME CARE S5108 [facility] TRAINING [address] [place] [address] [facility] [place] D AREA D AREA CARE AGENCY AGENCY CLIENT PER 15 MIN HOME CARE S5108 [facility] TRAINING 0 [place] [facility]AN [facility] AREA D AREA CARE AGENCY AGENCY CLIENT PER 15 MIN NONEMERGE A0100 [facility] NCY 0 [facility] TRANSPORT ENTERPRIS MANAGEMEN ATION; ES T TAXI NONEMERGE A0100 [facility] NCY 0 [facility] TRANSPORT ENTERPRIS MANAGEMEN ATION; ES T TAXI HOME CARE S5108 [facility] TRAINING [address] [facility] AREA D AREA CARE AGENCY AGENCY CLIENT PER 15 MIN NONEMERGE A0100 [facility] NCY 0 [facility] TRANSPORT ENTERPRIS MANAGEMEN ATION; ES T TAXI NONEMERGE A0100 [facility] NCY 0 TRANS[facility] TRANSPORT ENTERPRIS MANAGEMEN ATION; ES T TAXI HOME CARE S5108 [facility] TRAINING 0 [facility] D AREA D AREA CARE AGENCY AGENCY CLIENT PER 15 MIN NONEMERGE A0100 [facility] NCY 0 [facility] TRANSPORT ENTERPRIS MANAGEMEN ATION; ES T TAXI NONEMERGE A0100 [facility] NCY 0 TRANS[facility]ALTH TRANSPORT ENTERPRIS MANAGEMEN ATION; ES T TAXI HOME CARE S5108 [facility] TRAINING 0 [facility] D AREA D AREA CARE AGENCY AGENCY CLIENT PER 15 MIN NONEMERGE A0100 [facility] NCY 0 [facility] TRANSPORT ENTERPRIS MANAGEMEN ATION; ES T TAXI NONEMERGE A0100 [facility] NCY 0 TRANS[facility] TRANSPORT ENTERPRIS MANAGEMEN ATION; ES T TAXI HOME CARE S5108 [facility] TRAINING 0 [facility] AREA D AREA CARE AGENCY AGENCY CLIENT PER 15 MIN NONEMERGE A0100 [facility] NCY 0 [facility] TRANSPORT ENTERPRIS MANAGEMEN ATION; ES T TAXI NONEMERGE A0100 [facility] NCY 0 TRANS[facility]ALTH TRANSPORT ENTERPRIS MANAGEMEN ATION; ES T TAXI NONEMERGE A0100 [facility] NCY 0 TRANS[facility] TRANSPORT ENTERPRIS MANAGEMEN ATION; ES T TAXI HOME CARE S5108 [facility] TRAINING 0 [facility] AREA D AREA CARE AGENCY AGENCY CLIENT PER 15 MIN NONEMERGE A0100 [facility] NCY 0 [facility] TRANSPORT ENTERPRIS MANAGEMEN ATION; ES T TAXI NONEMERGE A0100 [facility] NCY 0 TRANS[facility] TRANSPORT ENTERPRIS MANAGEMEN ATION; ES T TAXI HOME CARE S5108 [facility] TRAINING 0 [facility] AREA D AREA CARE AGENCY AGENCY CLIENT PER 15 MIN HOME CARE S5108 [facility] TRAINING 0 [facility] D AREA D AREA CARE AGENCY AGENCY CLIENT PER 15 MIN NONEMERGE A0100 [facility] NCY 0 [facility] TRANSPORT ENTERPRIS MANAGEMEN ATION; ES T TAXI HOME CARE S5108 [facility] TRAINING 0 [facility] AREA D AREA CARE AGENCY AGENCY CLIENT PER 15 MIN NONEMERGE A0100 [facility] NCY 0 [facility] TRANSPORT ENTERPRIS MANAGEMEN ATION; ES T TAXI APPL 58699 [facility] CARMINE MODALITY 0 O PT SERV 1/> AREAS ULTRASOUN D EA 15 MIN PHYSICAL 67439 [facility] THERAPY 0 O PT SERV EVALUATIO N THERAPEUT 63757 [facility] IC PX 1/> 0 O PT SERV AREAS EACH 15 MIN EXERCISES APPL 04153 [facility] MODALITY 0 O PT SERV 1/> AREAS TRACTION MECHANICA L PROTHROMB 78996 [facility] IN TIME 0 O MEDICAL O MEDICAL ASSOC LA ASSOC LA NONEMERGE A0100 [facility] NCY 0 [facility] TRANSPORT ENTERPRIS MANAGEMEN ATION; ES T TAXI HOME CARE S5108 [facility] [address] [facility] AREA D AREA CARE AGENCY AGENCY CLIENT PER 15 MIN THROMBOPL 74105 [facility] ASTIN 0 HOSP INC HOSP INC TIME PARTIAL PLASMA/WH OLE BLOOD PROTHROMB 75481 [facility] IN TIME 0 HOSP INC HOSP INC CREATINE 05973 [facility] KINASE 0 HOSP INC HOSP INC TOTAL ECG 82281 [facility] ROUTINE 0 HOSP INC HOSP INC ECG W/LEAST 12 LDS TRCG ONLY W/O I&R BLOOD 83935 [facility] COUNT 0 HOSP INC HOSP INC COMPLETE AUTO&AUTO DIFRNTL WBC COLLECTIO 24601 [facility] N VENOUS 0 HOSP INC HOS[place] [address] [facility] TROPONIN 0 HOSP INC HOSP INC QUANTITAT TIKA CREATINE 71784 [facility] KINASE MB 0 HOSP INC HOSP INC FRACTION ONLY ECG 82671 [facility] ROUTINE 0 COVERAGE ECG W/LEAST CORPORATI 12 LDS I&R ONLY RADIOLOGI 61343 [facility] C EXAM 0 HOSP INC HOSP INC CHEST 2 VIEWS FRONTAL&L ATERAL URNLS DIP 13711 [facility] 0 HOSP INC HOSP INC STICK/TAB LET RGNT AUTO W/O MICROSCOP Y COMPREHEN 04063 [facility] SIVE 0 HOSP INC HOSP INC METABOLIC PANEL AMBULANCE A0429 [facility] SERVICE 0 EMS EMS BLS EMERGENCY TRANSPORT GROUND A0425 [facility] MILEAGE 0 EMS EMS PER STATUTE MILE BLD GLU A4253 [facility] TEST/REAG 0 MEDICAL MEDICAL T STRIPS SUPPLY SUPPLY HOME BLD GLU MON-50 NORMAL A4256 [facility] LOW AND 0 MEDICAL MEDICAL HIGH SUPPLY SUPPLY CALIBRATO R SOLUTION/ CHIPS LANCETS A4259 [facility] PER BOX 0 MEDICAL MEDICAL OF 100 SUPPLY SUPPLY [facility] A4258 [facility] WERED 0 MEDICAL LUMBER CHAIN OFFBEARER SUPPLY SUPPLY FOR LANCET EACH NONEMERGE A0100 [facility] NCY 0 [facility] TRANSPORT ENTERPRIS MANAGEMEN ATION; ES T TAXI HOME CARE S5108 [facility] 0 [facility] AREA D AREA CARE AGENCY AGENCY CLIENT PER 15 MIN HOME CARE S5108 [facility] 0 [facility] D AREA D AREA CARE AGENCY AGENCY CLIENT PER 15 MIN NONEMERGE A0100 [facility] NCY 0 [facility] TRANSPORT ENTERPRIS MANAGEMEN ATION; ES T TAXI NONEMERGE A0100 [facility] NCY 0 TRANS[facility] HEALTH TRANSPORT ENTERPRIS MANAGEMEN ATION; ES T TAXI NONEMERGE A0100 [facility] NCY 0 TRANS[facility] TRANSPORT ENTERPRIS MANAGEMEN ATION; ES T TAXI HOME CARE S5108 [facility] 0 [facility] D AREA CARE AGENCY AGENCY CLIENT PER 15 MIN HOME CARE S5108 [facility] 0 [facility] D AREA D AREA CARE AGENCY AGENCY CLIENT PER 15 MIN NONEMERGE A0100 [facility]Y 0 [facility] TRANSPORT ENTERPRIS MANAGEMEN ATION; ES T TAXI NONEMERGE A0100 [facility] NCY 0 TRANS[facility] TRANSPORT ENTERPRIS MANAGEMEN ATION; ES T TAXI NONEMERGE A0100 [facility] NCY 0 TRANS[facility] HE[facility] TRANSPORT ENTERPRIS MANAGEMEN ATION; ES T TAXI NONEMERGE A0100 [facility] NCY 0 TRANS[facility] HE[facility] TRANSPORT ENTERPRIS MANAGEMEN ATION; ES T TAXI HOME CARE S5108 [facility] 0 [facility] D AREA CARE AGENCY AGENCY CLIENT PER 15 MIN HOME CARE S5108 [facility] 0 [facility] D AREA D AREA CARE AGENCY AGENCY CLIENT PER 15 MIN NONEMERGE A0100 [facility] NCY 0 TRANSIT HEALTH TRANSPORT ENTERPRIS MANAGEMEN ATION; ES T TAXI NONEMERGE A0100 [facility] NCY 0 TRANSIT HEALTH TRANSPORT ENTERPRIS MANAGEMEN ATION; ES T TAXI HOME CARE S5108 [facility] 0 [facility] D AREA CARE AGENCY AGENCY CLIENT PER 15 MIN NONEMERGE A0100 [facility] NCY 0 TRANSIT HEALTH TRANSPORT ENTERPRIS MANAGEMEN [...] AGING PER 15 MIN NONEMERGE A0100 [facility] 0 TRANSIT HEALTH TRANSPORT ENTERPRIS MANAGEMEN ATION; ES T TAXI NONEMERGE A0100 [facility] NCY 0 TRANSIT HEALTH TRANSPORT ENTERPRIS MANAGEMEN ATION; ES T TAXI NONEMERGE A0100 [facility] NCY 0 TRANSIT HEALTH TRANSPORT ENTERPRIS MANAGEMEN [...] AGING PER 15 MIN NONEMERGE A0100 [facility] 0 TRANSIT HEALTH TRANSPORT ENTERPRIS MANAGEMEN ATION; ES T TAXI NONEMERGE A0100 [facility] NCY 0 TRANSIT HEALTH TRANSPORT ENTERPRIS MANAGEMEN ATION; ES T TAXI HOME CARE S5108 [facility] [address] [facility] AGENCY ON AGENCY ON CLIENT AGING AGING PER 15 MIN NONEMERGE A0100 [facility] NCY 0 [facility] TRANSPORT ENTERPRIS MANAGEMEN ATION; ES T TAXI HOME CARE S5108 [facility] TRAINING [address] [facility] AGENCY ON AGENCY ON CLIENT AGING AGING PER 15 MIN NONEMERGE A0100 [facility] NCY 0 [facility] TRANSPORT ENTERPRIS MANAGEMEN ATION; ES T TAXI COLLECTIO 73694 [facility] N VENOUS 0 O MEDICAL O MEDICAL BLOOD ASSOC LA ASSOC LA VENIPUNCT URE HEMOGLOBI 29572 [facility] N 0 O MEDICAL O MEDICAL GLYCOSYLA ASSOC LA ASSOC LA DOTTIE A1C BLOOD 06813 [facility] COUNT 0 O MEDICAL O MEDICAL COMPLETE ASSOC LA ASSOC LA AUTO&AUTO DIFRNTL WBC PROTHROMB 21030 [facility] IN TIME 0 O MEDICAL O MEDICAL [facility]OC [facility] COMPREHEN [id number] [facility] SIVE 0 O MEDICAL O MEDICAL METABOLIC ASSOC LA ASSOC LA PANEL NONEMERGE A0100 [facility] 0 [facility] ENTERPR[facility] MANAGEMEN ATION; ES [facility] S5108 [facility] TRAINING [address] [facility] AGENCY ON AGENCY ON CLIENT AGING AGING PER 15 MIN NONEMERGE A0100 [facility] 0 [facility] ENTERPRIS MANAGEMEN ATION; ES T [facility] WALKER [id number] [facility] FOLDING 0 DRUG #1 DRUG #1 WHEELED ADJUSTABL E/FIXED HEIGHT SEAT [id number] [facility] ATTACHMEN 0 DRUG #1 DRUG #1 T WALKER NONEMERGE A0100 [facility] NC[facility] 0 [facility] ENTERPRIS MANAGEMEN ATION; ES [facility] S5108 [facility] 0 [facility] AGENCY ON AGENCY ON CLIENT AGING AGING PER 15 MIN NONEMERGE A0100 [facility] NC[facility] 0 [facility] ENTERPRIS MANAGEMEN ATION; ES T [facility] MISC TX T1999 [facility] ITEMS & 0 [facility] D AREA D AREA RETAIL AGENCY ON AGENCY ON PURCHASE AGING AGING NOC NONEMERGE A0100 [facility] NC[facility] 0 [facility] ENTERPRIS MANAGEMEN ATION; ES T [facility] NONEMERGE A0100 [facility] 0 [facility] ENTERPRIS MANAGEMEN ATION; ES T [facility] S5108 [facility] TRA[facility] 0 [facility] AGENCY ON AGENCY ON CLIENT AGING AGING PER 15 MIN NONEMERGE A0100 [facility] 0 [facility]SP[facility] ENTERPRIS MANAGEMEN ATION; ES T [facility] NONEMERGE A0100 [facility] 0 [facility]SP[facility] ENTERPRIS MANAGEMEN ATION; ES [facility] S5108 [facility] 0 [facility] AGENCY ON AGENCY ON CLIENT AGING AGING PER 15 MIN NONEMERGE A0100 [facility] 0 [facility]SP[facility] ENTERPRIS MANAGEMEN [...] AGING PER 15 MIN NONEMERGE A0100 [facility] 0 [facility]SP[facility] ENTERPRIS MANAGEMEN ATION; ES T [facility] NONEMERGE A0100 [facility] 0 [facility]SP[facility] ENTERPRIS MANAGEMEN ATION; ES T [facility] NONEMERGE A0100 [facility] 0 [facility]SP[facility] ENTERPRIS MANAGEMEN ATION; ES [facility] S5108 [facility] 0 [facility] AGENCY ON AGENCY ON CLIENT AGING AGING PER 15 MIN NONEMERGE A0100 [facility] 0 [facility]SP[facility] ENTERPRIS MANAGEMEN ATION; ES T [facility] NONEMERGE A0100 [facility] 0 [facility]SP[facility] ENTERPRIS MANAGEMEN ATION; ES T [facility] NONEMERGE A0100 [facility] 0 [facility]SP[facility] ENTERPRIS MANAGEMEN ATION; ES [facility] S5108 [facility] 0 [facility] AGENCY ON AGENCY ON CLIENT AGING AGING PER 15 MIN NONEMERGE A0100 [facility] 0 [facility] ENTERPRIS MANAGEMEN ATION; ES T [facility] NONEMERGE A0100 [facility] 0 [facility] ENTERPRIS MANAGEMEN [...] CLIENT AGING AGING PER 15 MIN PROTHROMB [id number] BALJIT MENDOZA IN TIME 0 [facility] NONEMERGE A0100 [facility] 0 [facility]SP[facility] ENTERPRIS MANAGEMEN ATION; ES T TAXI THROMBOPL 62302 [facility] ASTIN 0 [facility]OSP INC HOSP INC TIME PARTIAL PLASMA/WH OLE BLOOD RADIOLOGI 48873 [facility] C 0 IMAGING & PAUL EXAMINATI ON CHEST INTERVENT SINGLE I VIEW FRONTAL AMB A0427 [facility] SERVICE 0 EMS EMS ALS EMERGENCY TRANSPORT LEVEL 1 CREATINE 61216 [facility] KINASE MB 0 [place] [address] [facility] S[facility] NE TROPONIN 0 HOSP INC HOSP INC QUANTITAT TIKA COLLECTIO 87792 [facility] N VENOUS 0 HOSP INC HOSP INC BLOOD VENIPUNCT URE CREATINE 38199 [facility] KINASE 0 HOSP INC HOSP INC TOTAL BLOOD 66686 [facility] COUNT 0 HOSP INC HOSP INC COMPLETE AUTO&AUTO DIFRNTL WBC ECG 87256 [facility] ROUTINE 0 HOSP INC HOSP INC ECG W/LEAST 12 LDS TRCG ONLY W/O I&R NONINVASI 55425 [facility] VE 0 HOSP INC HOSP INC EAR/PULSE OXIMETRY SINGLE DETER COMPREHEN 25779 [facility] SIVE 0 HOSP [facility]P INC METABOLIC PANEL GROUND A0425 [facility] MILEAGE 0 EMS EMS PER STATUTE MILE NONEMERGE A0100 [facility] NCY 0 [facility]SP[facility] ENTERPRIS MANAGEMEN ATION; ES T TAXI RADIOLOGI 77481 [facility] C EXAM 0 HOSP [facility] H[facility] INC KNEE COMPLETE 4/MORE VIEWS NONINVASI 15825 [facility] VE 0 HOSP INC HOSP INC EAR/PULSE OXIMETRY SINGLE DETER RADIOLOGI 25506 [facility] C 0 IMAGING & PAUL EXAMINATI ON KNEE INTERVENT 1/2 VIEWS I NONEMERGE A0100 [facility] NCY 0 [facility] ENTERPRIS MANAGEMEN [...] AGING PER 15 MIN NONEMERGE A0100 [facility] NCY 0 [facility] TRANSP[facility] ENTERPRIS MANAGEMEN ATION; ES T [facility] S5108 [facility] TRAINING 0 [facility] AGENCY ON AGENCY ON CLIENT AGING AGING PER 15 MIN NONEMERGE A0100 [facility] NCY 0 [facility] TRANSP[facility] ENTERPRIS MANAGEMEN ATION; ES T TAXI NONEMERGE A0100 [facility] NCY 0 [facility] TRANSP[facility] ENTERPRIS MANAGEMEN ATION; ES T [facility] S5108 [facility] TRAINING [address] [facility] AGENCY ON AGENCY ON CLIENT AGING AGING PER 15 MIN NONEMERGE A0100 [facility] NCY 0 [facility] TRANSP[facility] ENTERPRIS MANAGEMEN ATION; ES T [facility] S5108 [facility] WILL[facility] TRAINING [address] [place] [facility]ARE AGENCY ON AGENCY ON CLIENT AGING AGING PER 15 MIN NONEMERGE A0100 [facility] NCY 0 [facility] TRANSPORT ENTERPRIS MANAGEMEN ATION; ES T TAXI NONEMERGE A0100 [facility] NCY 0 [facility] TRANSPORT ENTERPRIS MANAGEMEN ATION; ES T [facility] C[facility] S5108 [facility] TRAINING [address] [facility]ARE AGENCY ON AGENCY ON CLIENT AGING AGING PER 15 MIN NONEMERGE A0100 [facility] NCY 0 [facility] TRANSPORT ENTERPRIS MANAGEMEN ATION; ES T [facility] C[facility] S5108 [facility] TRAINING [address] [facility] [place] [facility]A CARE AGENCY ON AGENCY ON CLIENT AGING AGING PER 15 MIN NONEMERGE A0100 [facility] NCY 0 [facility] TRANSPORT ENTERPRIS MANAGEMEN ATION; ES T TAXI NONEMERGE A0100 [facility] NCY 0 [facility] TRANSPORT ENTERPRIS MANAGEMEN ATION; ES T T[facility]I HOME C[facility] S5108 [facility] TRAINING [address] [facility] [place] [facility] D AREA CARE AGENCY ON AGENCY ON CLIENT AGING AGING PER 15 MIN NONEMERGE A0100 [facility] NCY 0 [facility] TRANSPORT ENTERPRIS MANAGEMEN ATION; ES T TAXI NONEMERGE A0100 [facility] NCY 0 [facility] TRANSPORT ENTERPRIS MANAGEMEN ATION; ES T [facility] S5108 [facility] WILL[facility] TRAINING [address] [...] OF 100 SUPPLY SUPPLY NONEMERGE A0100 [facility] NCY 0 [facility] TRANSPORT ENTERPRIS MANAGEMEN ATION; ES T [facility] S5108 WILLAMS WILLAMS TRAINING 0 [place] [employer] [facility] D AREA D AREA CARE AGENCY ON AGENCY ON CLIENT AGING AGING PER 15 MIN NONEMERGE A0100 [facility] NCY 0 [facility] TRANSPORT ENTERPRIS MANAGEMEN ATION; ES T TAXI NONEMERGE A0100 [facility] NCY 0 [facility] TRANSPORT ENTERPRIS MANAGEMEN ATION; ES T [facility]I [facility] S5108 WILLAMS WILLAMS TRAINING 0 [facility] [employer] [facility] D AREA D AREA CARE AGENCY ON AGENCY ON CLIENT AGING AGING PER 15 MIN HOME CARE S5108 WILLAMS WILLAMS TRAINING 0 [employer] [facility] D AREA D AREA CARE AGENCY ON AGENCY ON CLIENT AGING AGING PER 15 MIN NONEMERGE A0100 [facility] NCY 0 [facility] TRANSPORT ENTERPRIS MANAGEMEN ATION; ES T TAXI NONEMERGE A0100 [facility] NCY 0 [facility] TRANSPORT ENTERPRIS MANAGEMEN ATION; ES T T[facility]I [facility] S5108 WILLAMS WILLAMS TRAINING 0 [facility] [employer] [facility] D AREA D AREA CARE AGENCY ON AGENCY ON CLIENT AGING AGING PER 15 MIN NONEMERGE A0100 [facility] NCY 0 [facility] TRANSPORT ENTERPRIS MANAGEMEN ATION; ES T TAXI NONEMERGE A0100 [facility] NCY 0 [facility] TRANSPORT ENTERPRIS MANAGEMEN ATION; ES T TAXI HOME C[facility] S5108 WILLAMS WILLAMS TRAINING 0 [place] [employer] [facility] D AREA D AREA CARE AGENCY ON AGENCY ON CLIENT AGING AGING PER 15 MIN HOME CARE S5108 WILLAMS WILLAMS TRAINING 0 [place] [employer] [facility] D AREA D AREA CARE AGENCY ON AGENCY ON CLIENT AGING AGING PER 15 MIN PROTHROMB 00116 [facility]ISION[facility] IN TIME 0 O 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 A0100 [facility] NCY 0 [facility] TRANSPORT ENTERPRIS MANAGEMEN ATION; ES T TAXI COMPREHEN 51348 [facility] SIVE 0 O MEDICAL 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 Y Y RADIOLOGI 27378 RIMMAJayson SPARKS EXAM 0 IMAGING & MARYAM L CHEST 2 VIEWS INTERVENT FRONTAL&L ION PLLC ATERAL ECG 72116 JARRODITZEL ANGELINA, ROUTINE 0 O MEDICAL YANIRE ECG W/LEAST ASSOCIATE 12 LDS S TRCG ONLY W/O I&R BLOOD 53704 [facility] COUNT 0 O MEDICAL O MEDICAL COMPLETE ASSOC 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 DIFRNTL Y Y WBC COLLECTIO 88991 LNOG ALVES N VENOUS 0 O MEDICAL O MEDICAL BLOOD ASSOC ASSOC 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 URE Y Y NONEMERGE A0100 [facility] NCY 0 [facility] TRANSPORT ENTERPRIS MANAGEMEN ATION; ES T TAXI HOME CARE S5108 [facility] [address] [facility] HOME AREA D AREA CARE AGENCY ON AGENCY ON CLIENT AGING AGING PER 15 MIN HOME CARE S5108 WILLAMS WILLAMS TRAINING [address]ARE AGENCY ON AGENCY ON CLIENT AGING AGING PER 15 MIN NONEMERGE A0100 [facility] NCY 0 [facility] TRANSPORT ENTERPRIS MANAGEMEN ATION; ES T TAXI NONEMERGE A0100 [facility] NCY 0 [facility] TRANSPORT ENTERPRIS MANAGEMEN ATION; ES T TAXI PROTHROMB 38742 [facility] IN TIME 0 O MEDICAL O 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 RADIOLOGI 74472 RIMMAJANA OLVERA C EXAM 0 IMAGING & HEAVEN B CHEST 2 VIEWS INTERVENT FRONTAL&L ION PLLC ATERAL NONEMERGE A0100 [facility] NCY 0 [facility] TRANSPORT ENTERPRIS MANAGEMEN ATION; ES T TAXI NONEMERGE A0100 [facility] NCY 0 [facility] TRANSPORT ENTERPRIS MANAGEMEN ATION; ES T TAXI HOME CARE S5108 WILLAMS WILLAMS TRAINING 0 [employer] [place] [facility] D AREA CARE AGENCY ON AGENCY ON CLIENT AGING AGING PER 15 MIN NONEMERGE A0100 [facility] NCY 0 [facility] TRANSPORT ENTERPRIS MANAGEMEN ATION; ES T TAXI NONEMERGE A0100 [facility] NCY 0 [facility] TRANSPORT ENTERPRIS MANAGEMEN ATION; ES T TAXI HOME CARE S5108 WILLAMS WILLAMS TRAINING 0 [facility] AREA CARE AGENCY ON AGENCY ON CLIENT AGING AGING PER 15 MIN NONEMERGE A0100 [facility] NCY 0 [facility] TRANSPORT ENTERPRIS MANAGEMEN ATION; ES T TAXI NONEMERGE A0100 [facility] NCY 0 [facility] TRANSPORT ENTERPRIS MANAGEMEN ATION; ES T TAXI NONEMERGE A0100 [facility] NCY 0 [facility] TRANSPORT ENTERPRIS MANAGEMEN ATION; ES T TAXI HOME CARE S5108 WILLAMS WILLAMS TRAINING 0 [facility] AREA CARE AGENCY ON AGENCY ON CLIENT AGING AGING PER 15 MIN NONEMERGE A0100 [facility] NCY 0 [facility] TRANSPORT ENTERPRIS MANAGEMEN ATION; ES T TAXI NONEMERGE A0100 [facility] NCY 0 [facility] TRANSPORT ENTERPRIS MANAGEMEN [...] CLIENT AGING AGING PER 15 MIN DEBRIDEME 56510 MILADYS HOOK, ABHAY NAIL 0 NATHALIE CRUZ [...] AGING PER 15 MIN HOME CARE S5108 WILALMS WILLAMS TRAINING 0 [facility] D AREA CARE AGENCY ON AGENCY ON CLIENT AGING AGING PER 15 MIN PROTHROMB 62985 [facility] DIV[facility]ASS[facility] IN TIME 0 O MEDICAL O 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 CREATININ 70293 LAB [facility] LAB GALA E OTHER 0 AMERIC 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 51091 [facility] N VENOUS 0 O MEDICAL O MEDICAL BLOOD ASSOC ASSOC 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 URE Y Y HEMOGLOBI 05157 [facility] N 0 O MEDICAL O MEDICAL GLYCOSYLA ASSOC ASSOC DOTTIE A1C 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 Y Y BLOOD 69316 [facility] COUNT 0 O MEDICAL O MEDICAL COMPLETE ASSOC 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 DIFRNTL Y Y WBC ALBUMIN 49977 [facility] LAB GALA URINE 0 AMERIC AMERIC MICROALBU HOLDING HOLDING MIN QUANTIATI VE COMPREHEN 15838 [facility] SIVE 0 O MEDICAL 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 Y Y LIPID 94258 [facility] PANEL 0 O MEDICAL O 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 HOME CARE S5108 [facility] TRAINING 0 [place] [place] D AREA CARE AGENCY ON AGENCY ON CLIENT AGING AGING PER 15 MIN HOME CARE S5108 [facility] TRAINING 0 [facility] AREA CARE AGENCY ON AGENCY ON CLIENT AGING AGING PER 15 MIN BLD GLU A4253 [facility]ERTY TEST/REAG 0 MEDICAL MEDICAL T STRIPS SUPPLY SUPPLY HOME BLD GLU MON-50 NORMAL A4256 [facility] LOW AND 0 MEDICAL MEDICAL HIGH SUPPLY SUPPLY CALIBRATO R SOLUTION/ CHIPS LANCETS A4259 [facility]ERTY PER BOX 0 MEDICAL MEDICAL OF 100 SUPPLY SUPPLY [facility] A4258 [facility] LIBERTY WERED 0 MEDICAL LUMBER CHAIN OFFBEARER SUPPLY SUPPLY FOR LANCET EACH HOME CARE S5108 WILLAMS WILLAMS TRAINING 0 [place] AREA AREA CARE AGENCY ON AGENCY ON CLIENT AGING AGING PER 15 MIN HOME CARE S5108 WILLAMS WILLAMS TRAINING 0 [facility] AREA CARE AGENCY ON AGENCY ON CLIENT AGING AGING PER 15 MIN HOME CARE S5108 WILLAMS WILLAMS TRAINING 0 [place] [facility] AGENCY ON AGENCY ON CLIENT AGING AGING [...] CLIENT AGING AGING PER 15 MIN CREATININ 52668 [facility] E OTHER 0 O MEDICAL O MEDICAL SOURCE ASSOC 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 URNLS DIP 54351 [facility] 0 O MEDICAL O MEDICAL STICK/TAB ASSOC ASSOC LET 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 AUTO W/O Y Y MICROSCOP Y HOME CARE S5108 [facility] [place] TRAINING 0 [facility] D AREA CARE AGENCY ON AGENCY ON CLIENT AGING AGING PER 15 MIN HOME CARE S5108 [facility] TRAINING 0 [place] [facility] AREA CARE AGENCY ON AGENCY ON CLIENT AGING AGING PER 15 MIN HOME CARE S5108 [facility] [place] [facility] TRAINING 0 [place] [facility] AREA CARE AGENCY ON AGENCY ON CLIENT AGING AGING PER 15 MIN HOME CARE S5108 WILLAMS WILLAMS TRAINING 0 [place] [facility] AREA CARE AGENCY ON AGENCY ON CLIENT AGING AGING PER 15 MIN HOME CARE S5108 [facility] TRAINING 0 [place] [facility] AREA CARE AGENCY ON AGENCY ON CLIENT AGING AGING PER 15 MIN HOME CARE S5108 [facility] TRAINING 0 [facility] D AREA CARE AGENCY ON AGENCY ON CLIENT AGING AGING [place] [address] [place] [address] [facility] HEAD/BRAI 0 IMAGING & PAUL N W/O CONTRAST INTERVENT MATERIAL I RADEX 37978 [facility] CO [facility] CO RIBS UNI 0 HOSP INC HOSP INC W/POSTERO ANT CH MINIMUM 3 VIEWS RADIOLOGI 15659 [facility] C 0 IMAGING & PAUL EXAMINATI ON KNEE 3 INTERVENT VIEWS I THROMBOPL 90159 [facility] ASTIN 0 HOSP INC HOSP INC TIME PARTIAL PLASMA/WH OLE BLOOD INJECTION J1885 [facility] KETOROLAC TROMETHAM INE PER 15 MG PROTHROMB 41097 [facility] IN TIME 0 HOSP INC HOSP INC NONINVASI 59653 [facility] VE 0 HOSP INC HOSP INC EAR/PULSE OXIMETRY SINGLE DETER RADIOLOGI 46523 [facility] C EXAM 0 HOSP INC HOSP INC KNEE COMPLETE 4/MORE VIEWS RADEX 17786 [facility] SPINE 0 IMAGING & PAUL LUMBOSACR AL 2/3 INTERVENT VIEWS I RADEX 70235 [facility] RIBS 0 IMAGING & PAUL UNILATERA L 2 VIEWS INTERVENT I GROUND A0425 [facility] MILEAGE 0 EMS EMS PER STATUTE MILE AMBULANCE A0429 [facility] SERVICE 0 EMS EMS BLS EMERGENCY TRANSPORT COLLECTIO 58146 [facility] N VENOUS 0 [facility] INC BLOOD VENIPUNCT URE THERAPEUT 16338 [facility] IC 0 HOSP INC HOSP INC PROPHYLAC TIC/DX INJECTION SUBQ/IM HOME CARE S5108 [facility] TRAINING 0 [facility] HOME D [...] CLIENT AGING AGING PER 15 MIN DEBRIDEME 59839 MILADYS HOOK, ABHAY NAIL 0 NATHALIE ZELAYA [...] CLIENT AGING AGING PER 15 MIN DETERMINA 47732 SHARAN TSANG TION 9 CASTRO Johnson [facility] HOME CARE S5108 WILLAMS WILLAMS TRAINING 9 [...] CLIENT AGING AGING PER 15 MIN ECG 79823 SKY HANNA 9 CARDIOLOG WOOD Jones ECG [...] CLIENT AGING AGING PER 15 MIN PROTHROMB 38106 [facility] IN TIME 9 O MEDICAL O 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 [address] [facility] THYROID 9 O MEDICAL O MEDICAL STIMULATI ASSOC ASSOC NG 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 HORMONE Y Y TSH BLOOD 81744 [facility] COUNT 9 O MEDICAL O MEDICAL COMPLETE ASSOC 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 DIFRNTL Y Y WBC COLLECTIO 49795 [facility] N VENOUS 9 O MEDICAL O MEDICAL BLOOD ASSOC ASSOC 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 URE Y Y HEMOGLOBI 32023 [facility] N 9 O MEDICAL O MEDICAL GLYCOSYLA ASSOC ASSOC DOTTIE A1C 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 Y Y LIPID 97533 [facility] PANEL 9 O MEDICAL O 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 COMPREHEN 21351 [facility] SIVE 9 O MEDICAL O [...] WILLAMS TRAINING 9 [facility] AGENCY ON AGENCY ON CLIENT AGING AGING PER 15 MIN HOME CARE S5108 WILLAMS WILLAMS TRAINING 9 [place] CARE AGENCY ON AGENCY ON CLIENT AGING AGING PER 15 MIN COMPREHEN 03663 [facility] SIVE 9 HOSP INC HOSP INC METABOLIC PANEL LIPID 59874 [facility] PANEL 9 HOSP INC HOSP INC HEMOGLOBI 97620 [facility] N 9 HOSP INC HOSP INC GLYCOSYLA DOTTIE A1C BLOOD 03121 [facility] COUNT 9 HOSP INC HOSP INC COMPLETE AUTO&AUTO DIFRNTL WBC PROTHROMB 94250 LONG LONG IN TIME 9 O MEDICAL O 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 PROTHROMB 27125 LONG BERKOWITZMASSIMO IN TIME 9 O MEDICAL O 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 ANK FT L1971 [facility]TH[facility] 9 D FOOT D FOOT PLSTC/OTH AND ANKLE AND ANKLE MATL W/ANK [facility] A4258 [facility]ERTY WERED 9 MEDICAL LUMBER CHAIN OFFBEARER SUPPLY SUPPLY FOR LANCET EACH BLD GLU A4253 [facility] LIBERTY TEST/REAG 9 MEDICAL MEDICAL T STRIPS SUPPLY SUPPLY HOME BLD GLU MON-50 LANCETS A4259 [facility] PER BOX 9 MEDICAL MEDICAL OF 100 SUPPLY SUPPLY COLLECTIO 27597 JARRODITZEL WOOMASSIMO N VENOUS 9 O MEDICAL O MEDICAL BLOOD ASSOC ASSOC 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 URE Y Y PROTHROMB 52034 LONG ALVES IN TIME 9 O MEDICAL O 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 PROTHROMB 16934 [facility] IN TIME 9 HOSP INC HOSP INC THROMBOPL 18109 [facility] ASTIN 9 HOSP INC HOSP INC TIME PARTIAL PLASMA/WH OLE BLOOD RADIOLOGI 96420 [facility] C 9 HOSP INC HOSP INC EXAMINATI ON CHEST SINGLE VIEW FRONTAL AMB A0427 [facility] SERVICE 9 EMS EMS ALS EMERGENCY TRANSPORT LEVEL 1 COLLECTIO 87417 [facility] N VENOUS 9 HOSP INC [place] [address] [facility] TROPONIN 9 HOSP INC HOSP INC QUANTITAT TIKA INJECTION J2060 [facility] 9 HOSP INC HOSP INC LORAZEPAM 2 MG CREATINE 88808 [facility] KINASE MB 9 HOSP INC HOSP INC FRACTION ONLY BLOOD 74845 [facility] COUNT 9 HOSP INC HOSP INC COMPLETE AUTO&AUTO DIFRNTL WBC THER 61371 [facility] PROPH/DX 9 HOSP INC HOSP INC NJX IV PUSH SINGLE/1S T SBST/DRUG CREATINE 28419 [facility] KINASE 9 HOSP INC HOSP INC TOTAL ECG 24635 [facility] ROUTINE 9 HOSP INC HOSP INC ECG W/LEAST 12 LDS TRCG ONLY W/O I&R COMPREHEN 31094 [facility] SIVE 9 HOSP INC HOSP INC METABOLIC PANEL NONINVASI 73988 [facility] VE 9 HOSP INC HOSP INC EAR/PULSE OXIMETRY SINGLE DETER GROUND A0425 [facility] MILEAGE 9 EMS EMS PER STATUTE MILE COMPREHEN 40609 [facility] SIVE 9 O MEDICAL 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 Y Y HEMOGLOBI 84791 [facility] N 9 O MEDICAL O MEDICAL GLYCOSYLA ASSOC ASSOC DOTTIE A1C 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 Y Y COLLECTIO 08546 [facility] N VENOUS 9 O MEDICAL O MEDICAL BLOOD ASSOC ASSOC 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 URE Y Y PROTHROMB 81963 [facility]VES IN TIME 9 O MEDICAL O 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 DUP-SCAN 24792 [facility] LYNNR VEINS 9 CARLITOS Cage COMPLETE RADIOLOGY ASSOC BILATERAL STUDY DUP-SCAN 71262 [facility] XTR VEINS 9 [facility] JUSTINE D D [facility] L/LIMITED HOSPITAL HOSPITAL STUDY BLOOD 66792 [facility] COUNT 9 HOSP INC HOSP INC COMPLETE AUTOMATED ECG 13605 [facility] ROUTINE 9 HOSP INC HOSP INC ECG W/LEAST 12 LDS TRCG ONLY W/O I&R RADEX 99125 [facility] SPINE 9 HOSP INC HOSP INC CERVICAL 6 OR MORE VIEWS CREATINE 10002 [facility] KINASE 9 HOSP INC HOSP INC TOTAL COLLECTIO 34833 [facility] N VENOUS 9 [facility] [place] [place] [address] [facility] TROPONIN 9 HOSP INC HOSP INC QUANTITAT TIKA CREATINE 12110 [facility] KINASE MB 9 HOSP INC HOSP INC FRACTION ONLY COMPREHEN 81817 [facility] SIVE 9 HOSP INC HOSP INC METABOLIC PANEL RADEX 41967 [facility] SPINE 9 IMAGING & HEAVEN B CERVICAL 4 OR 5 INTERVENT VIEWS ION PLLC GROUND A0425 [facility] MILEAGE 9 EMS EMS PER STATUTE MILE AMBULANCE A0429 [facility] SERVICE 9 EMS EMS BLS EMERGENCY TRANSPORT THROMBOPL 94997 [facility] ASTIN 9 HOSP INC HOSP INC TIME PARTIAL PLASMA/[place] [address] [facility] HEAD/BRAI 9 HOSP [facility] HOSP INC N W/O CONTRAST MATERIAL PROTHROMB 25290 [facility] IN TIME 9 HOSP INC HOSP INC PROTHROMB 59252 [facility]ES IN TIME 9 O MEDICAL O 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 COLLECTIO 65413 [facility] N VENOUS 9 O MEDICAL O MEDICAL BLOOD ASSOC ASSOC 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 URE Y Y DEBRIDEME 67632 MILADYS HOOK, NT NAIL 9 NATHALIE ZELAYA ANY METHOD 6/> BLD GLU A4253 LIBERTY LIBERTY TEST/REAG 9 MEDICAL MEDICAL T STRIPS SUPPLY SUPPLY HOME BLD GLU MON-50 LANCETS A4259 [facility] LIBERTY PER BOX 9 MEDICAL MEDICAL OF 100 SUPPLY SUPPLY NON-INVAS 10557 [facility] IVE 9 NATHALIE ZELAYA PHYSIOLOG IC STUDY EXTREMITY 3 LEVLS DEBRIDEME 51844 MILADYS HOOK, NT NAIL 9 NATHALIE ZELAYA ANY METHOD 6/> SKIN TEST 97847 DHS/CO [place] 9 [facility] ACCT DEPARTMEN INTRADERM T AL ANK FT [...] AND ANKLE MDL [employer] ORTHOTIC ONLY COLLECTIO 40191 [facility] N VENOUS 9 O MEDICAL O MEDICAL BLOOD ASSOC ASSOC 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 URE Y Y PROTHROMB 06844 [facility] IN TIME 9 O MEDICAL O 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 COLLECTIO 14075 [facility] N VENOUS 9 O MEDICAL O MEDICAL BLOOD ASSOC ASSOC 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 URE Y Y BLOOD 68135 [facility] COUNT 9 O MEDICAL O MEDICAL COMPLETE ASSOC 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 DIFRNTL Y Y WBC PROTHROMB 05664 [facility] IN TIME 9 O MEDICAL O 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 COMPREHEN 00079 [facility] SIVE 9 O MEDICAL 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 Y Y ECG 53533 SKY WANG 9 O MEDICAL YANIRE ECG W/LEAST ASSOCIATE 12 LDS S TRCG ONLY W/O I&R PROTHROMB 11397 [facility] IN TIME 9 O MEDICAL O 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 BLOOD 50753 [facility] COUNT 9 O MEDICAL O MEDICAL COMPLETE ASSOC 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 DIFRNTL Y Y WBC COLLECTIO 84718 [facility] N VENOUS 9 O MEDICAL O MEDICAL BLOOD ASSOC ASSOC 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 URE Y Y COMPREHEN 55632 LONG GARAY SIVE 9 O MEDICAL O [...] SUPPLY [id number] LIBERTY LIBERTY WERED 9 MEDICAL LUMBER CHAIN OFFBEARER SUPPLY SUPPLY FOR LANCET EACH DEBRIDEME 61058 WOLFE, WOLFE, NT NAIL 9 ESA ESA ANY ER J ER J METHOD 6/> COLLECTIO 84173 LONG ALVES N VENOUS 9 O MEDICAL O MEDICAL BLOOD ASSOC ASSOC 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 URE Y Y PROTHROMB 90311 LONG ALVES IN TIME 9 O MEDICAL O 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 LIPID 90003 LONG GARAY PANEL 9 O MEDICAL O 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 COMPREHEN 50903 [facility] SIVE 9 O MEDICAL 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 Y Y LUMB-SACR L0631 LYNNCTARAN BRIGGS AL ORTHOS 9 [employer] SAGIT INC INC CNTRL RIGID A&P PREFAB KNEE L1810 [facility]CORE LYNNCORE ORTHOSIS 9 [facility] [employer] ELASTIC INC INC JOINTS PREFAB CUSTOM FIT ANKLE L1902 [facility] L[facility] ORTH 9 [employer] ANKLE INC INC GAUNT/SIM PREFAB OFF-THE-S HELF HYSTEROSC 51520 ENRIQUE ENRIQUE OPY BX [address] [facility] UM&/POLYP INC INC C W/WO D&C INJECTION J2250 ENRIQUE ENRIQUE 9 [facility] MIDAZOLAM [facility] HCL PER INC INC 1 MG INJECTION J2405 ENRIQUE ENRIQUE 9 [facility] PER 1 MG BLOOD 80074 ENRIQUE ENRIQUE COUNT [address] [facility] AUTO&AUTO INC INC DIFRNTL WBC GONADOTRO 25195 ENRIQUE ENRIQUE PIN [address] [facility] INC INC QUALITATI VE PROTHROMB 75357 ENRIQUE ENRIQUE IN TIME 9 [facility] INC ECG 72447 ENRIQUE ENRIQUE ROUTINE 9 [facility] ECG [facility] W/LEAST INC INC 12 LDS TRCG ONLY W/O I&R COMPREHEN 11127 ENRIQUE ENRIQUE SIVE [address] [facility] PANEL INC INC RADIOLOGI 76644 ENRIQUE ENRIQUE C EXAM [address] [place] [address] CHEST [address] [facility] VIEWS INC INC FRONTAL&L ATERAL ANES 28926 [facility] [place], HYSTEROSC 9 ANESTHESI BEVERLY Robert OPY&/HYST A PC EROSALPIN GOGRAPHY W/[place] [address] ASSOCIATE DELILAH, SURG 9 D ABDIAZIZ Kamara PATHOLOGY PATHOLOGI [facility] ROSCOPIC EXAM INJECTION J1885 ENRIQUE ENRIQUE 9 [facility] KETOROLAC [facility] INC INC TROMETHAM INE PER 15 MG PROTHROMB 68235 LONG ALVES IN TIME 8 O MEDICAL O 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 COMPREHEN 13246 LONG ALVES SIVE 8 O MEDICAL 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 Y Y BLOOD 27047 LONG ALVES COUNT 8 O MEDICAL O MEDICAL COMPLETE ASSOC 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 DIFRNTL Y Y WBC CREATINE 26638 LONG ALVES KINASE 8 O MEDICAL O MEDICAL TOTAL ASSOC 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 COLLECTIO 10948 [facility] N VENOUS 8 O MEDICAL O MEDICAL BLOOD ASSOC ASSOC 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 URE Y Y SCREENING 33189 [employer], 8 IMAGING & MARYAM L MAMMOGRAP HY INTERVENT BILATERAL ION PLLC US PELVIC 13256 [employer] [employer], 8 IMAGING & MARYAM L NONOBSTET LUIS INTERVENT REAL-TIME ION PLLC IMAGE COMPLETE BASIC 15332 [facility] METABOLIC 8 O MEDICAL O MEDICAL PANEL ASSOC ASSOC CALCIUM LABORATOR LABORATOR TOTAL Y Y COLLECTIO 30993 [facility] N VENOUS 8 O MEDICAL O MEDICAL BLOOD ASSOC ASSOC 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 URE Y Y BLOOD 63600 [facility] COUNT 8 O MEDICAL O MEDICAL COMPLETE ASSOC 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 DIFRNTL Y Y WBC PROTHROMB 47109 [facility] IN TIME 8 O MEDICAL O 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 STRAPPING 65569 AIDEN WOLFE UNNA [address] [place] [address] [facility] SKE[facility], HEAD/BRAI 8 IMAGING & MARYAM L N W/O CONTRAST INTERVENT MATERIAL ION PLLC AMB A0427 [facility] SERVICE 8 EMS EMS ALS EMERGENCY TRANSPORT LEVEL 1 RADIOLOGI 99868 [facility] C 8 HOSP INC HOSP INC EXAMINATI [place] [address] [facility] TROPONIN 8 HOSP INC HOSP INC QUANTITAT TIKA CREATINE 16894 [facility] KINASE MB 8 HOSP INC HOSP INC FRACTION ONLY COLLECTIO 82885 [facility] N VENOUS 8 HOSP INC HOSP INC BLOOD VENIPUNCT URE BLOOD 93455 [facility] COUNT 8 HOSP INC HOSP INC COMPLETE AUTO&AUTO DIFRNTL WBC ECG 51044 [facility] ROUTINE 8 HOSP INC HOSP INC ECG W/LEAST 12 LDS TRCG ONLY W/O I&R CREATINE 78765 [facility] KINASE 8 HOSP INC HOSP INC TOTAL GROUND A0425 [facility] MILEAGE 8 EMS EMS PER STATUTE MILE COMPREHEN 15876 [facility] SIVE 8 HOSP INC HOSP INC METABOLIC PANEL RADIOLOGI 35198 [facility], C EXAM 8 IMAGING & MARYAM L CHEST 2 VIEWS INTERVENT FRONTAL&L ION PLLC ATERAL GROUND A0425 [facility] MILEAGE 8 EMS EMS PER STATUTE MILE AMBULANCE A0429 [facility] SERVICE 8 EMS [place] [address] PREMIER SKEENS, HEAD/BRAI 8 IMAGING & MARYAM L N W/O CONTRAST INTERVENT MATERIAL ION PLLC BASIC 82507 [facility] METABOLIC 8 HOSP INC HOSP INC PANEL CALCIUM TOTAL NONINVASI 39242 [facility] VE 8 HOSP INC HOSP INC EAR/PULSE OXIMETRY SINGLE DETER CREATINE 200 44412 [facility] KINASE 8 HOSP INC HOSP INC TOTAL BLOOD 200 15437 [facility] COUNT 8 HOSP INC HOSP INC COMPLETE AUTO&AUTO DIFRNTL WBC CREATINE 10-200 67296 [facility] KINASE MB 8 HOSP INC HOSP INC FRACTION ONLY [place] 12-29-200 94875 [facility] TROPONIN 8 HOSP INC HOSP INC [place]ITAT [place] 10-200 98276 [facility] TROPONIN 8 HOSP INC HOSP INC QUANTITAT TIKA CREATINE 10--200 15757 [facility] KINASE MB 8 HOSP INC HOSP INC FRACTION ONLY BLOOD --200 69104 [facility] COUNT 8 HOSP INC HOSP INC COMPLETE AUTO&AUTO DIFRNTL WBC ECG 12-28-200 15683 [facility] ROUTINE 8 HOSP INC HOSP INC ECG W/LEAST 12 LDS TRCG ONLY W/O I&R CREATINE 10-200 91351 [facility] KINASE 8 HOSP INC HOSP INC TOTAL NONINVASI 200 12850 [facility] VE 8 HOSP INC HOSP INC EAR/PULSE OXIMETRY SINGLE DETER COMPREHEN 90046 [facility] SIVE 8 HOSP INC HOSP INC METABOLIC PANEL GROUND A0425 [facility] MILEAGE 8 EMS EMS PER STATUTE MILE AMB A0427 [facility] SERVICE 8 EMS EMS ALS EMERGENCY TRANSPORT LEVEL 1 RADIOLOGI 57590 Jayson NEWMAN 8 CAMACHO & MARYAM Boyd EXAMINATI ON CHEST INTERVENT SINGLE ION PLLC VIEW FRONTAL PROTHROMB 77798 [facility] IN TIME 8 HOSP INC HOSP INC ADMINISTR G0008 LONG ALFARO, ATION OF 8 O MEDICAL YANIRE INFLUENZA VIRUS ASSOCIATE VACCINE S IIV3 10798 [facility], VACCINE 8 O MEDICAL YANIRE SPLIT VIRUS 0.5 ASSOCIATE ML S DOSAGE IM USE PROTHROMB 24733 [facility] IN TIME 8 O MEDICAL O 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 COLLECTIO 59696 [facility] N VENOUS 8 O MEDICAL O MEDICAL BLOOD ASSOC ASSOC 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 URE Y Y DEBRIDEME 44678 WOLFE, WOLFE, NT NAIL 8 ESA SEE ANY ER J ER J METHOD 6/> ECG 27612 SKY PERDUE 8 CARDIOLOG KHALED ECG Y W/LEAST 12 LDS W/I&R CTA ABDL 69282 IZABELA BAKER, AORTA&BI 8 CARLITOS Cage ILIOFEM RADIOLOGY W/CONTRAS ASSOC T&POSTP DUPLEX 02985 IZABELA AREVALOERLY, SCAN 8 ULI Cage EXTRACRAN RADIOLOGY [place] [address] [facility] ANGIOGRAP 8 JUSTINE ROWLEY LOWER D D [facility] PROGRAMME 12865 Robert TURPIN STIMJ & 8 D CLINIC VICENTE Cage PACG PLLC AFTER IV DRUG NFS GROUND A0425 [facility] MILEAGE 8 EMS EMS PER STATUTE MILE COMPRE 30701 VALENTINE TURPIN 8 D CLINIC VICENTE Cage YSIOLOGIC PLLC ARRHYTHMI A INDUCTION SBSQ 81936 [facility] D [facility] J 15 PHYSICIAN MINUTES S AMB A0427 [facility] SERVICE 8 EMS EMS ALS EMERGENCY TRANSPORT LEVEL 1 CARD EP 3726 [facility] STIMULATI 8 FORMERLY NAMED [facility] ON&RECORD D D ING [facility] ANGIOCARD 8853 [facility] IOGRAPHY 8 FORMERLY NAMED [facility] OF LEFT D D HEART [facility] S LEFT 3722 [facility] HEART 8 FORMERLY NAMED [facility] CARDIAC D D CATHETERI [facility] CORONARY 8856 [facility] ARTERIOGR 8 FORMERLY NAMED [facility] APHY D D USING TWO [facility] CATHETERS INJECTION 94167 [facility] CARDIAC 8 D CLINIC VICENTE M CATHJ L PLLC VENTR/L ATR ANGIOGRAP H SBSQ 40698 PS[facility]IATRIC 8 D [facility] J 15 PHYSICIAN MINUTES S SBSQ 41941 [facility] 8 D CLINIC VICENTE M CARE/DAY PLLC 25 MINUTES L HRT 10463 JUSTINE GARCIA CATHETERI 8 D CLINIC VICENTE M ZATION [place] [address] JUSTINE GARCIA, C-CATHJ 8 D CLINIC VICENTE Niles F/SLCTV C PLLC ANGRPH I SI&R 17497 JUSTINE GARCIA, F/NJX PX 8 D CLINIC VICENTE M DURING PLLC C-CATHJ VENTR&/AT R ANGRPH I SI&R 30854 JUSTINE GARCIA, F/NJX PX 8 D CLINIC VICENTE M DURING PLLC C-CATHJ PULM&/OR SELECT NONINVASI 83083 [facility] VE 8 HOSP INC HOSP INC EAR/PULSE OXIMETRY SINGLE DETER COMPREHEN 54308 [facility] SIVE 8 HOSP INC HOSP INC METABOLIC PANEL INITIAL 58822 [facility] JOSE, INPATIENT 8 D CLINIC VICENTE M CONSULT PLLC NEW/ESTAB PT 80 MIN GROUND A0425 [facility] MILEAGE 8 EMS EMS PER STATUTE MILE INITIAL 92147 [facility] D [facility] J 50 PHYSICIAN MINUTES S COLLECTIO 66747 [facility] N VENOUS 8 [facility] [place] [address] [facility] TROPONIN 8 [facility] HOSP INC QUANTITAT TIKA CREATINE 01417 [facility] KINASE MB 8 [facility]P [facility] INC FRACTION ONLY ECG 29690 [facility] ROUTINE 8 [facility] INC ECG W/LEAST 12 LDS TRCG ONLY W/O I&R BLOOD 52679 [facility] COUNT 8 H[facility] COMPLETE AUTO&AUTO DIFRNTL WBC CREATINE 15043 [facility] KINASE 8 H[facility]P [facility]P INC TOTAL AMB A0427 [facility] SERVICE 8 EMS EMS [place] [address] IZABELA ROCHA, HEAD/BRAI 8 CASTRO N W/O RADIOLOGY CONTRAST ASSOC MATERIAL RADIOLOGI 70531 [facility] C 8 [facility] INC EXAMINATI ON CHEST SINGLE VIEW FRONTAL N-INVAS 81781 [facility] FERNANDEZ PHYSIOLOG 8 CARDIOLOG KHALED IC STD Y LXTR ART COMPL BI DUP-SCAN 79531 [facility] XTR VEINS 8 [facility] INC UNILATERA L/LIMITED STUDY RADEX 96505 [facility] MARILYNN, HAND 8 [facility] [address] RADEX 96837 [facility] MARILYNN ELBOW 2 8 [facility] ECG 45100 [facility] FERNANDEZ, ROUTINE 8 CARDIOLOG KHALED ECG Y W/LEAST 12 LDS W/I&R PROTHROMB 74938 LONG ALVES IN TIME 8 O MEDICAL O 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 ECG 15264 SOMEMAY FERNANDEZ, ROUTINE 8 CARDIOLOG KHALED ECG Y W/LEAST 12 LDS W/I&R BLOOD 60955 [facility] COUNT 8 HOSP INC HOSP INC COMPLETE AUTO&AUTO DIFRNTL WBC CREATINE 96998 [facility] KINASE 8 HOSP INC HOSP INC TOTAL COLLECTIO 01913 [facility] N VENOUS 8 HOSP INC HOSP INC BLOOD VENIPUNCT URE CREATINE 16865 [facility] KINASE MB 8 HOSP [place] [address] [facility] TROPONIN 8 HOSP INC HOSP INC QUANTITAT TIKA BASIC 44301 [facility] METABOLIC 8 HOSP INC HOSP INC PANEL CALCIUM TOTAL GROUND A0425 [facility] MILEAGE 8 EMS EMS PER STATUTE MILE COMPREHEN 17136 [facility] SIVE 8 HOSP [place] [address] [facility] TROPONIN 8 HOSP INC HOSP INC QUANTITAT TIKA COLLECTIO 10246 [facility] N VENOUS 8 HOSP INC HOSP INC BLOOD VENIPUNCT URE CREATINE 87859 [facility] KINASE MB 8 HOSP INC HOSP INC FRACTION ONLY CREATINE 80326 [facility] KINASE 8 HOSP INC HOSP INC TOTAL BLOOD 58131 [facility] COUNT 8 HOSP INC HOSP INC COMPLETE AUTO&AUTO DIFRNTL WBC ECG 61845 [facility] ROUTINE 8 HOSP INC HOSP INC ECG W/LEAST 12 LDS TRCG ONLY W/O I&R PROTHROMB 16672 [facility] IN TIME 8 HOSP INC HOSP INC RADIOLOGI 24769 [facility] C 8 HOSP INC HOSP INC EXAMINATI ON CHEST SINGLE VIEW FRONTAL AMB A0427 [facility] SERVICE 8 EMS EMS ALS EMERGENCY TRANSPORT LEVEL 1 ECG 09605 [facility], ROUTINE 8 ECG BECCA BECCA W/LEAST 12 LDS TRCG ONLY W/O I&R SKIN TEST 56271 [facility] [address] ACCT DEPARTMEN [place]TRADERM T [place] ECG 23521 [facility] ROUTINE 8 CARDIOLOG CARDIOLOG ECG Y Y W/LEAST 12 LDS W/I&R ECG 60125 [facility], ROUTINE 8 CARDIOLOG KHALED ECG Y W/LEAST 12 LDS W/I&R HOSPITAL 29837 RAJ ANTHONY, DISCHARGE 8 SADAF SADAF DAY MANAGEMEN T 30 MIN/< COMPRE 95391 THE THE ELECTROPH 8 MEDICAL MEDICAL YSIOLOGIC SPEC [place] ARRHYTHMI A INDUCTION COMPRE 65335 THE THE ELECTROPH MEDICAL MEDICAL YSIOL XM SPEC OF SPEC OF W/LEFT [place] ATRIAL PACNG/REC ICAR CATH 41455 [facility]ICAL ARRHYTGNI SPEC OF SPEC OF C FOC [place] SUPVENTR TCHYCAR INITIAL 61184 [facility] 8 MEDICAL MEDICAL CARE/DAY SPEC OF SPEC OF 50 [place] MINUTES INTRA-TATIANNA 15233 THE THE TRIC&/ATR MEDICAL MEDICAL IAL MAPG SPEC OF SPEC OF [place] W/CATH MA AMB A0427 [facility] SERVICE 8 FIRE/EMS FIRE/EMS ALS EMERGENCY TRANSPORT LEVEL 1 GROUND A0425 [facility] MILEAGE 8 FIRE/EMS FIRE/EMS PER STATUTE MILE SBSQ 67471 [facility] 8 CARDIOLOG CARDIOLOG CARE/DAY Y Y 25 MINUTES SBSQ 07830 [facility] 8 CARDIOLOG KHALED CARE/DAY Y 25 MINUTES SBSQ 53418 [place] [address] CARDIOLOG CARDIOLOG CARE/DAY Y Y 25 MINUTES SBSQ 65910 [place] [address] CARDIOLOG CARDIOLOG CARE/DAY Y Y 25 MINUTES CARDIOVER 07189 [facility] 8 CARDIOLOG CARDIOLOG ELECTIVE Y Y ARRHYTHMI A EXTERNAL ANES 83827 [facility] 8 D D ELEC ANESTHESI ANESTHESI CONVERSIO A ASSOC A ASSOC N ARRHYTHMI SBSQ 04662 [facility] 8 CARDIOLOG CARDIOLOG CARE/DAY Y Y 25 MINUTES INITIAL 12312 [facility] INPATIENT 8 FAMILY FAMILY CONSULT CARE CARE NEW/ESTAB PT 55 MIN SBSQ 99977 [facility] 8 CARDIOLOG CARDIOLOG CARE/DAY Y Y 25 MINUTES INITIAL 56047 [facility] INPATIENT 8 CARDIOLOG CARDIOLOG CONSULT Y Y NEW/ESTAB PT 80 MIN CARDIOVER 99608 [facility] 8 CARDIOLOG CARDIOLOG ELECTIVE Y Y ARRHYTHMI A EXTERNAL ANES 94578 [facility] INTE[facility] SYS 8 D D ELEC ANESTHESI ANESTHESI CONVERSIO A ASSOC A ASSOC N ARRHYTHMI ECG 75026 [facility] ROUTINE 8 CARDIOLOG CARDIOLOG ECG Y Y W/LEAST 12 LDS W/I&R Encounters Encounter Start End Date Code Location Performer Type Date DOMICIL/R 55162 [facility] EST HOME 7 7 NEW PT VISIT MOD SEVER 30 MIN EMERGENCY 28321 SAUL MARIEY DEPT 7 7 PHYSICIAN VISIT S, PLL HIGH SEVERITY& THREAT [facility] 6 [facility] - 6 [facility] - 6 6 [facility] DOM/R-MERON 77963 PAUL Johnson E/M EST 5 5 [place] [facility] SIGNIF NEW PROB 60 MINUTES EMERGENCY 54368 [facility] 5 5 COVERAGE VISIT HIGH CORPORATI SEVERITY& THREAT FUN DOM/R-MERON 73528 PAUL Johnson E/M EST 5 5 [place] [facility] SIGNIF NEW PROB 60 MINUTES [facility] [address] OFFICE 08979 CHIDI GOYAL OUTPATIEN 5 5 CARDIOLOG T VISIT Y 25 MINUTES OFFICE 63418 [facility] OUTPATIEN 5 5 AND SLEEP Z BONNER T NEW 30 DISORDER MINUTES OFFICE 54298 [facility] OUTPATIEN 5 5 O MEDICAL T VISIT 15 ASSOCIATE MINUTES CLINIC, [facility] 5 5 O MEDICAL HEALTH ASSOCIATE OFFICE 40068 [facility] 5 O MEDICAL T VISIT 15 ASSOCIATE MINUTES CLINIC, [facility] 5 5 O MEDICAL HEALTH ASSOCIATE OFFICE 10524 [facility]IID GOYAL OUTPATIEN 5 5 CARDIOLOG T VISIT Y 25 MINUTES OFFICE 31465 [facility] GOYAL OUTPATIEN 5 5 CARDIOLOG T VISIT Y 25 MINUTES EMERGENCY 79782 [facility] MEDROSO DEPT 5 5 JACQUIE FLORIN VISIT EMERGENCY HIGH PHYS SEVERITY& THREAT FUNCJ EMERGENCY 90102 EMERGENCY EARL 5 5 [facility] STA DEPARTMEN T VISIT CORPORATI HIGH/URGE NT SEVERITY EMERGENCY 55381 EMERGENCY WOODY II 5 5 COVERAGE JAM DEPARTMEN T VISIT CORPORATI HIGH/URGE NT SEVERITY EMERGENCY 74489 [facility] 5 5 HOSP INC DEPARTMEN T VISIT MODERATE SEVERITY OFFICE 60974 [facility] 5 5 O MEDICAL T VISIT 15 ASSOCIATE MINUTES CRITICAL [facility] ACCESS 5 5 HOSP INC HOSPITAL HOME PERSONAL HEALTH, 4 4 TOUCH OUTPATIEN HOME CARE T OF CLINIC, [facility] 4 4 O MEDICAL HEALTH ASSOCIATE OFFICE 13072 [facility] OUTPATIEN 4 4 O MEDICAL T VISIT 15 ASSOCIATE MINUTES OFFICE 11756 [facility] 4 4 O MEDICAL T VISIT 15 ASSOCIATE MINUTES CLINIC, [facility] 4 4 O MEDICAL HEALTH ASSOCIATE OFFICE 92827 EAR NOSE SEBASTIÁN OUTPATIEN 4 4 AND RAN T VISIT THROAT 15 SPECIALI MINUTES CLINIC, [facility] 4 4 O MEDICAL HEALTH ASSOCIATE OFFICE 92010 [facility] OUTPATIEN 4 4 O MEDICAL T VISIT 15 ASSOCIATE MINUTES EMERGENCY 66963 EMERGENCY WOOD II 4 4 COVERAGE JAM DEPARTMEN T VISIT CORPORATI HIGH/URGE NT SEVERITY HOME PERSONAL HEALTH, 4 4 TOUCH OUTPATIEN HOME CARE T OF OFFICE 90512 LARRYISABEL HARRIS OUTPATIEN 4 4 D FOOT & DEN T VISIT ANKLE 15 CENT MINUTES OFFICE 49213 EAR NOSE SEBASTIÁN OUTPATIEN 4 4 AND RAN T NEW 30 THROAT MINUTES SPECIALI CLINIC, [facility] 4 4 O MEDICAL HEALTH ASSOCIATE OFFICE 50527 [facility] 4 4 O MEDICAL T VISIT 15 ASSOCIATE MINUTES HOME PERSONAL HEALTH, 4 4 TOUCH OUTPATIEN HOME CARE T OF OFFICE 09236 BALJIT SMILEY OUTPATIEN 4 4 CONUNTY CONUNTY T VISIT 5 HEALTH HEALTH MINUTES DEPARTM DEPARTM OFFICE 47507 BALJIT SMILEY OUTPATIEN 4 4 CONUNTY CONUNTY T VISIT HEALTH HEALTH 10 DEPARTM DEPARTM MINUTES OFFICE 55457 CHIDI FERNANDEZ JAY JAY OUTPATIEN 4 4 CARDIOLOG T VISIT Y 25 MINUTES CLINIC, [facility] 4 4 O MEDICAL HEALTH ASSOCIATE OFFICE 51613 JARRODLL OUTPATIEN 4 4 O MEDICAL T VISIT 15 ASSOCIATE MINUTES CLINIC, [facility] 4 4 O MEDICAL HEALTH ASSOCIATE OFFICE 82683 WOOICELL OUTPATIEN 4 4 O MEDICAL T VISIT 15 ASSOCIATE MINUTES OFFICE 40618 [facility]I GOYAL OUTPATIEN 4 4 CARDIOLOG T VISIT Y 15 MINUTES OFFICE 78467 JARRODLL OUTPATIEN 4 4 O MEDICAL T VISIT 15 ASSOCIATE MINUTES CLINIC, [facility] 4 4 O MEDICAL HEALTH ASSOCIATE EMERGENCY 38321 [facility] 4 4 [facility] DEPARTMEN T VISIT HIGH/URGE NT SEVERITY CRITICAL [facility] ACCESS 4 4 [facility] CL[facility], [facility] 4 4 O MEDICAL HEALTH ASSOCIATE OFFICE 80939 JARRODLL OUTPATIEN 4 4 O MEDICAL T VISIT 15 ASSOCIATE MINUTES OFFICE 60535 JARRODLL OUTPATIEN 4 4 O MEDICAL T VISIT 15 ASSOCIATE MINUTES CLINIC, [facility] 4 4 O MEDICAL HEALTH ASSOCIATE CLINIC, [facility] 4 4 O MEDICAL HEALTH ASSOCIATE OFFICE 53033 JARRODLL OUTPATIEN 4 4 O MEDICAL T VISIT 15 ASSOCIATE MINUTES OFFICE 33010 JARRODLL OUTPATIEN 4 4 O MEDICAL T VISIT 15 ASSOCIATE MINUTES CLINIC, [facility] 4 4 O MEDICAL HEALTH ASSOCIATE HOME PERSONAL HEALTH, 4 4 TOUCH OUTPATIEN HOME CARE T OF [facility] 3 3 O MEDICAL HEALTH ASSOCIATE OFFICE 97361 [facility] OUTPATIEN 3 3 O MEDICAL T VISIT 15 ASSOCIATE MINUTES CLINIC, [facility] 3 3 O MEDICAL HEALTH ASSOCIATE OFFICE 78587 [facility] OUTPATIEN 3 3 O MEDICAL T VISIT 15 ASSOCIATE MINUTES OFFICE 59074 [facility] GOYAL OUTPATIEN 3 3 CARDIOLOG T VISIT Y 15 MINUTES OFFICE 06506 WOOMASSIMO OUTPATIEN 3 3 O MEDICAL T VISIT 15 ASSOCIATE MINUTES CLINIC, [facility] 3 3 O MEDICAL HEALTH ASSOCIATE HOME PERSONAL HEALTH, 3 3 TOUCH OUTPATIEN HOME CARE T OF OFFICE 48989 SPORTS SUPINSKI OUTPATIEN 3 3 MEDICINE JENNIFER T VISIT & 10 ORTHOPAED MINUTES I CLINIC, [facility] 3 3 O MEDICAL HEALTH ASSOCIATE OFFICE 96352 [facility] OUTPATIEN 3 3 O MEDICAL T VISIT 15 ASSOCIATE MINUTES OFFICE 29395 ARGENISSHERIDAN OUTPATIEN 3 3 CARDIOLOG T VISIT Y 15 MINUTES CRITICAL [facility] ACCESS 3 3 [facility] EMERGENCY 93677 PRIETO ALBERT DEPT 3 3 EMERGENCY I RENEE VISIT SERVICES HIGH SEVERITY& THREAT FUNJ OFFICE 25069 LONG ANSELMOPATIEN 2 2 O MEDICAL T VISIT 15 ASSOCIATE MINUTES CLINIC, [facility] 2 2 O MEDICAL HEALTH ASSOCIATE OFFICE 91659 URENA STAR URENA STAR OUTPATIEN 2 2 T NEW 45 MINUTES CRITICAL [facility] ACCESS 2 2 [facility] CLINIC, [facility] 2 2 O MEDICAL HEALTH ASSOCIATE OFFICE 38161 LONG ANSELMOPATIEN 2 2 O MEDICAL T VISIT 15 ASSOCIATE MINUTES OFFICE 62448 [facility]I OUTPATIEN 2 2 CARDIOLOG T VISIT Y 15 MINUTES OFFICE 81252 [facility] OUTPATIEN 2 2 O MEDICAL T VISIT 15 ASSOCIATE MINUTES CLINIC, [facility]URAL 2 2 O MEDICAL HEALTH ASSOCIATE OFFICE 22378 [facility] OUTPATIEN 2 2 O MEDICAL T VISIT 15 ASSOCIATE MINUTES CLINIC, [facility] 2 2 O MEDICAL HEALTH ASSOCIATE OFFICE 26210 [facility] OUTPATIEN 2 2 O MEDICAL T VISIT 15 ASSOCIATE MINUTES CLINIC, [facility] 2 2 O MEDICAL HEALTH ASSOCIATE OFFICE 91911 CHIDI GOYAL OUTPATIEN 2 2 CARDIOLOG T VISIT Y 15 MINUTES OFFICE 59917 [facility] 2 2 CARDIOLOG T VISIT Y 15 MINUTES OFFICE 33884 ESSIE CALL OUTPATIEN 2 2 T VISIT 15 MINUTES [facility] 2 [address] [facility] [facility] CLINIC, [facility] 2 2 O MEDICAL HEALTH ASSOCIATE OFFICE 86591 [facility] OUTPATIEN 2 2 O MEDICAL T VISIT 15 ASSOCIATE MINUTES OFFICE 39236 ESSIE CALL OUTPATIEN 2 2 T NEW 30 MINUTES OFFICE 66156 [facility] OUTPATIEN 2 2 O MEDICAL T VISIT 15 ASSOCIATE MINUTES CLINIC, [facility] 2 2 O MEDICAL HEALTH ASSOCIATE HOME PERSONAL HEALTH, 2 2 TOUCH OUTPATIEN HOME CARE T OF EMERGENCY 17781 PRIETO KELLEY DEPT 2 2 EMERGENCY KOL VISIT SERVICES HIGH SEVERITY& THREAT [facility] - 2 2 [facility] OUTPATIEN D T [facility] EMERGENCY 40791 [facility] 2 2 [facility] DEPARTMEN D T VISIT REGIONAL HIGH/URGE HOS NT SEVERITY OFFICE 36486 [facility] 2 2 O MEDICAL T VISIT 15 ASSOCIATE MINUTES CLINIC, [facility] 2 2 O MEDICAL HEALTH ASSOCIATE EMERGENCY 76730 PRIETO KIMBLE 2 2 EMERGENCY GRE DEPARTMEN SERVICES T VISIT MODERATE SEVERITY [facility] - 2 2 [facility] OUTPATIEN D T [facility]AL HOS EMERGENCY 85400 [facility] 2 2 [facility] DEPARTMEN D T VISIT REGIONAL HIGH/URGE HOS NT SEVERITY EMERGENCY 23369 [place] [facility] 2 2 HOSP INC DEPARTMEN T VISIT HIGH/URGE NT SEVERITY CRITICAL [facility] ACCESS 2 2 HOSP INC HOSPITAL EMERGENCY 51569 EMERGENCY SHANKS DEPT 2 2 COVERAGE LYN VISIT HIGH CORPORATI SEVERITY& THREAT FUNCJ CLINIC, [facility] 2 2 O MEDICAL HEALTH ASSOCIATE OFFICE 11770 [facility] 2 O MEDICAL T VISIT 15 ASSOCIATE MINUTES OFFICE 69856 BALJIT SMILEY OUTPATIEN 2 2 CONUNTY CONUNTY T VISIT 5 HEALTH HEALTH MINUTES DEPARTM DEPARTM OFFICE 40078 BALJIT SMILEY OUTPATIEN 2 2 CONUNTY CONUNTY T VISIT HEALTH HEALTH 10 DEPARTM DEPARTM MINUTES CLINIC, [facility] 2 2 O MEDICAL HEALTH ASSOCIATE OFFICE 82003 [facility] 2 O MEDICAL T VISIT 10 ASSOCIATE MINUTES OFFICE 76324 [facility] 2 2 O MEDICAL T VISIT 25 ASSOCIATE MINUTES CLINIC, [facility] 2 2 O MEDICAL HEALTH ASSOCIATE CLINIC, [facility] 2 2 O MEDICAL HEALTH ASSOCIATE OFFICE 97502 [facility]ONT[facility] OUTPATIEN 2 2 O MEDICAL T VISIT 15 ASSOCIATE MINUTES OFFICE 25074 SHARAN TSANG OUTPATIEN 2 2 JAM JAM T VISIT 15 MINUTES EMERGENCY 93402 EMERGENCY [facility] DEPT 2 2 COVERAGE LYN VISIT HIGH CORPORATI SEVERITY& THREAT FUNCJ EMERGENCY 78687 [facility] 2 2 HOSP INC DEPARTMEN T VISIT HIGH/URGE NT SEVERITY CRITICAL BALJIT CO ACCESS 2 2 [facility] CLINIC, [facility] 2 2 O MEDICAL HEALTH ASSOCIATE OFFICE 49976 JARRODLL OUTPATIEN 2 2 O MEDICAL T VISIT 15 ASSOCIATE MINUTES CLINIC, [facility] 2 2 O MEDICAL HEALTH ASSOCIATE OFFICE 29549 [facility] OUTPATIEN 2 2 O MEDICAL T VISIT 15 ASSOCIATE MINUTES OFFICE 00016 [facility] OUTPATIEN 2 2 O MEDICAL T VISIT 15 ASSOCIATE MINUTES CLINIC, [facility] 2 2 O MEDICAL HEALTH ASSOCIATE HOME PERSONAL HEALTH, 2 2 TOUCH OUTPATIEN HOME CARE T OF CLINIC, [facility] 2 2 O MEDICAL HEALTH ASSOCIATE OFFICE 57565 [facility] 2 2 O MEDICAL T VISIT 15 ASSOCIATE MINUTES OFFICE 65168 JARRODLL OUTPATIEN 2 2 O MEDICAL T VISIT 10 ASSOCIATE MINUTES CLINIC, [facility] 2 2 O MEDICAL HEALTH ASSOCIATE OFFICE 74525 WOOICELL OUTPATIEN 1 1 O MEDICAL T VISIT 15 ASSOCIATE MINUTES CLINIC, [facility] 1 1 O MEDICAL HEALTH ASSOCIATE OFFICE 82146 MALLY HYLTON OUTPATIEN 1 1 MEDICAL FISTER T VISIT SERV CHRIS 40 FOUNDATIO MINUTES OFFICE 15972 [facility] OUTPATIEN 1 1 O MEDICAL JUAN T VISIT 15 ASSOCIATE MINUTES [facility] O MED[facility] HEALTH ASSOCIATE OFFICE 14987 [facility]ION[facility]ATIEN 1 1 O MEDICAL T VISIT 15 ASSOCIATE MINUTES CLINIC, [facility] 1 1 O MEDICAL HEALTH ASSOCIATE OFFICE 58441 [facility] 1 1 O MEDICAL T VISIT 15 ASSOCIATE MINUTES OFFICE 23200 [facility] 1 1 O MEDICAL T VISIT 15 ASSOCIATE MINUTES CLINIC, [facility] 1 1 O MEDICAL HEALTH ASSOCIATE OFFICE 28157 [facility] 1 1 O MEDICAL T VISIT 15 ASSOCIATE MINUTES CLINIC, [facility] 1 1 O MEDICAL HEALTH ASSOCIATE EMERGENCY 02490 [place] DEPT 1 1 HOSP INC VISIT HIGH SEVERITY& THREAT FUNCJ AMBULATOR [facility] Y SURGERY 1 1 HOSP [facility] EMERGENCY 58832 EMERGENCY ARANA 1 1 [facility]OVER[facility] SEA DEPARTMEN T VISIT CORPORATI HIGH/URGE NT SEVERITY HOSPITAL UNIVERSIT - 1 1 Y INPATIENT HOSPITAL EMERGENCY 58141 EMERGENCY [facility] DEPT 1 1 COVERAGE VISIT HIGH CORPORATI SEVERITY& THREAT FUNCJ CRITICAL [facility] ACCESS 1 1 HOSP [facility] EMERGENCY 48224 [facility] 1 1 HOSP INC DEPARTMEN T VISIT MODERATE SEVERITY OFFICE [id number] LONG ANSELMOPATIEN 1 1 O MEDICAL T VISIT 15 ASSOCIATE MINUTES CLINIC, [facility] 1 1 O MEDICAL HEALTH ASSOCIATE OFFICE 81661 JARRODITZEL ANSELMOPATIEN 1 1 O MEDICAL T VISIT 15 ASSOCIATE MINUTES CLINIC, [facility] 1 1 O MEDICAL HEALTH ASSOCIATE CLINIC, [facility] 1 1 O MEDICAL HEALTH ASSOCIATE OFFICE 84480 WOOICELL OUTPATIEN 1 1 O MEDICAL T VISIT 15 ASSOCIATE MINUTES CLINIC, [facility] 1 1 O MEDICAL HEALTH ASSOCIATE OFFICE 03449 WOOICELL OUTPATIEN 1 1 O MEDICAL T VISIT 15 ASSOCIATE MINUTES CR[facility]ICAL [place] [facility] 1 1 [facility] OFF[facility] 38976 WOOICELL OUTPATIEN 1 1 O MEDICAL T VISIT 15 ASSOCIATE MINUTES CLINIC, [facility] 1 1 O MEDICAL HEALTH ASSOCIATE OFFICE 39893 WOOICELL OUTPATIEN 1 1 O MEDICAL T VISIT 15 ASSOCIATE MINUTES CLINIC, [facility] 1 1 O MEDICAL HEALTH ASSOCIATE EMERGENCY 82665 [facility] 1 1 [facility] DEPARTMEN T VISIT HIGH/URGE NT SEVERITY EMERGENCY 62300 EMERGENCY [place] DEPT 1 1 COVERAGE ELZ VISIT HIGH CORPORATI SEVERITY& THREAT FUNCJ CRITICAL [facility] ACCESS 1 1 [facility] HOME PERSONAL HEALTH, 1 1 TOUCH OUTPATIEN HOME CARE T OF CLINIC, [facility] 1 1 O MEDICAL HEALTH ASSOCIATE OFFICE 11657 WOOICELL OUTPATIEN 1 1 O MEDICAL T VISIT 15 ASSOCIATE MINUTES EMERGENCY 34197 EMERGENCY KNIGHT TATUM 1 1 COVERAGE DEPARTMEN T VISIT CORPORATI MODERATE SEVERITY CRITICAL [facility] ACCESS 1 1 [facility] CR[facility] ACCESS 1 1 [facility] EMERGENCY 17216 [facility] 1 1 HOSP INC DEPARTMEN T VISIT MODERATE SEVERITY EMERGENCY 35931 EMERGENCY [place] JAM 1 1 COVERAGE DEPARTMEN T VISIT CORPORATI HIGH/URGE NT SEVERITY CRITICAL [place] [facility] 1 1 [facility] EMERGENCY 26318 EMERGENCY KNIGHT TATUM 1 1 COVERAGE DEPARTMEN T VISIT CORPORATI HIGH/URGE NT SEVERITY EMERGENCY 63760 [place] [facility] 1 1 [facility] DEPARTMEN T VISIT MODERATE SEVERITY OFFICE 20042 LONG OUTPATIEN 1 1 O MEDICAL T VISIT 15 ASSOCIATE MINUTES CLINIC, [facility] RURAL 1 1 O MEDICAL HEALTH ASSOCIATE CRITICAL [facility] ACCESS 1 1 [facility] EMERGENCY 68600 [place] [facility] 1 1 [facility] DEPARTMEN T VISIT MODERATE SEVERITY EMERGENCY 14860 EMERGENCY HUSSEIN COR DEPT 1 1 COVERAGE VISIT HIGH CORPORATI SEVERITY& THREAT FUNCJ OFFICE 14633 [facility] OUTPATIEN 1 1 O MEDICAL T VISIT 15 ASSOCIATE MINUTES CLINIC, [facility] 1 1 O MEDICAL HEALTH ASSOCIATE OFFICE 04046 [facility] OUTPATIEN 1 1 O MEDICAL T VISIT 15 ASSOCIATE MINUTES CLINIC, [facility] 1 1 O MEDICAL HEALTH ASSOCIATE HOME PERSONAL HEALTH, 1 1 TOUCH OUTPATIEN HOME CARE T OF OFFICE 47141 BALJIT SMILEY OUTPATIEN 1 1 CONUNTY CONUNTY T VISIT 5 HEALTH HEALTH MINUTES DEPARTM DEPARTM OFFICE 57024 BALJIT SMILEY OUTPATIEN 1 1 CONUNTY CONUNTY T VISIT HEALTH HEALTH 10 DEPARTM DEPART MINUTES CLINIC, [facility] 1 1 O MEDICAL HEALTH ASSOCIATE OFFICE 28108 [facility] OUTPATIEN 1 1 O MEDICAL T VISIT 15 ASSOCIATE MINUTES CRITICAL [facility] ACCESS 1 1 [facility] EMERGENCY 92640 EMERGENCY PROUDFOOT 1 1 COVERAGE GLE DEPARTMEN T VISIT CORPORATI HIGH/URGE NT SEVERITY OFFICE 10076 [facility] OUTPATIEN 0 0 O MEDICAL T VISIT 15 ASSOCIATE MINUTES [facility] 0 0 O MEDICAL HEALTH ASSOCIATE CLINIC, [facility] 0 0 O MEDICAL HEALTH ASSOCIATE OFFICE 79852 [facility] OUTPATIEN 0 0 O MEDICAL T VISIT 15 ASSOCIATE MINUTES CLINIC, [facility] 0 0 O MEDICAL HEALTH ASSOCIATE OFFICE 48600 [facility] OUTPATIEN 0 0 O MEDICAL T VISIT 15 ASSOCIATE MINUTES HOME PERSONAL HEALTH, 0 0 TOUCH OUTPATIEN HOME CARE T [facility] - 0 0 [facility] D [facility] EMERGENCY 37807 [place] [facility] 0 0 HOSP INC DEPARTMEN T VISIT HIGH/URGE NT SEVERITY CRITICAL [facility] ACCESS 0 0 [facility] CLINIC, [facility] RURAL 0 0 O MEDICAL HEALTH ASSOCIATE OFFICE 66127 [facility] OUTPATIEN 0 0 O MEDICAL T VISIT 15 ASSOCIATE MINUTES OFFICE 99981 [facility] 0 0 O MEDICAL T VISIT 15 ASSOCIATE MINUTES CLINIC, [facility] 0 0 O MEDICAL HEALTH ASSOCIATE EMERGENCY 97858 [facility] 0 0 HOSP INC DEPARTMEN T VISIT HIGH/URGE NT SEVERITY CRITICAL [facility] ACCESS 0 0 [facility] EMERGENCY 23249 EMERGENCY DUKES JENNIFER DEPT 0 0 COVERAGE VISIT HIGH CORPORATI SEVERITY& THREAT [facility] CLINIC, [facility] 0 0 O MEDICAL HEALTH ASSOCIATE OFFICE 49450 [facility] 0 0 O MEDICAL T VISIT 15 ASSOCIATE MINUTES CRITICAL [facility] ACCESS 0 0 [facility]OSPITAL EMERGENCY 19534 [facility] 0 0 HOSP INC DEPARTMEN T VISIT MODERATE SEVERITY CRITICAL [place] [facility] ACCESS 0 0 [facility] HOSPITAL EMERGENCY 44526 [facility] 0 0 HOSP INC DEPARTMEN T VISIT LIMITED/M INOR PROB CLINIC, [facility] 0 0 O MEDICAL HEALTH ASSOCIATE S OFFICE 90242 [facility] 0 0 O MEDICAL T VISIT 15 ASSOCIATE MINUTES S CLINIC, [facility] 0 0 O MEDICAL HEALTH ASSOCIATE S OFFICE 58640 [facility] 0 0 O MEDICAL T VISIT 15 ASSOCIATE MINUTES S CLINIC, [facility] 0 0 O MEDICAL HEALTH ASSOCIATE S OFFICE 38489 [facility] O MEDICAL T VISIT 15 ASSOCIATE MINUTES S CLINIC, [facility] 0 0 O MEDICAL HEALTH ASSOCIATE S EMERGENCY 86687 EMERGENCY HUSSEIN COR 0 0 COVERAGE DEPARTMEN T VISIT CORPORATI HIGH/URGE NT SEVERITY CRITICAL [facility] ACCESS 0 0 [facility] EMERGENCY 83922 [place] [facility] 0 0 HOSP INC DEPARTMEN T VISIT MODERATE SEVERITY OFFICE 84918 SHARAN TSANG OUTPATIEN 0 0 CASTRO Ibrahim T VISIT 15 MINUTES OFFICE 32688 SHARAN TSANG OUTPATIEN 9 9 CASTRO Ibrahim T VISIT 25 MINUTES OFFICE 54120 DAVEY HANNA 9 9 CARDIOLOG WOOD Jones T VISIT Y PSC 15 MINUTES OFFICE 31509 [facility] MARISCAL 9 9 O MEDICAL T VISIT 15 ASSOCIATE MINUTES CLINIC, [facility] 9 9 O MEDICAL HEALTH ASSOCIATE HOSPITAL [facility] - OTHER 9 9 HOSP INC OFFICE 35092 DAVEY WANG 9 9 O MEDICAL YANIRE T VISIT 15 ASSOCIATE MINUTES S CRITICAL [facility] ACCESS 9 9 [facility] EMERGENCY 51016 EMER[facility] [place], DEPT 9 9 COVERAGE ELZER T VISIT HIGH CORPORATI SEVERITY& ON INC THREAT FUN EMERGENCY 70054 [facility] 9 9 [facility] DEPARTMEN T VISIT HIGH/URGE NT SEVERITY CRITICAL [facility] ACCESS 9 9 [facility] CLINIC, [facility] 9 9 O MEDICAL HEALTH ASSOCIATE S OFFICE 43869 DAVEY WANG 9 9 O MEDICAL YANIRE T VISIT 15 ASSOCIATE FORMERLY [facility] - 9 9 [facility] CR[facility] ACCESS 9 9 [facility] EMERGENCY 88155 [facility]Y [place], DEPT 9 9 COVERAGE CASTRO R VISIT HIGH CORPORATI SEVERITY& ON INC THREAT FUN EMERGENCY 34969 [facility] 9 9 HOSP INC DEPARTMEN T VISIT LOW/MODER SEVERITY OFFICE 74901 DAVEY WANG 9 9 O MEDICAL YANIRE T VISIT 15 ASSOCIATE MINUTES CLINIC, [facility] 9 9 O MEDICAL HEALTH ASSOCIATE S OFFICE 92975 [facility] OUTPATIEN 9 9 NATHALIE ZELAYA T VISIT 10 MINUTES OFFICE 56528 [facility] MARISCAL 9 9 HEALTH CONUNTY T VISIT 5 [facility] MIN[facility] BANK ACCT DEPARTMEN T OFFICE 48003 DHS/CO [facility] MARISCAL 9 9 HEALTH CONUNTY T VISIT [facility] 10 [facility] ACCT DEPARTMEN MINUTES T OFFICE 53978 DAVEY WANG 9 9 O MEDICAL YANIRE T VISIT 15 ASSOCIATE MINUTES S OFFICE 78501 DAVEY WANG 9 9 O MEDICAL YANIRE T VISIT 15 ASSOCIATE MINUTES S OFFICE 89032 DAVEY PERDUE 9 9 CARDIOLOG JIGARALED T VISIT Y 15 MINUTES OFFICE 73624 AIDEN WOLFE OUTPATIEN 9 9 ESA SEE T VISIT ER J ER J 10 MINUTES [facility] 46738 LUPILLO WESLEY OUTPATIEN 9 9 RUSTY Boyd T VISIT 15 MINUTES [facility]OSP[facility] [place] [facility] - OTHER 8 8 [facility] OFF[facility] 97991 DAVEY WANG 8 8 O MEDICAL YANIRE T VISIT 15 ASSOCIATE MINUTES S CRITICAL [facility] ACCESS 8 8 [facility] OFF[facility] 43268 LUPILLO WESLEY OUTPATIEN 8 8 RUSTY OJEDA L T NEW 45 MINUTES CRITICAL [facility] ACCESS 8 8 [facility] OFFICE 28652 SHARAN TSANG OUTPATIEN 8 8 CASTRO Ibrahim T VISIT 25 MINUTES EMERGENCY 23092 [facility] 8 8 [facility] DEPARTMEN T VISIT MODERATE SEVERITY CRITICAL [facility] ACCESS 8 8 [facility] OFFICE 21026 DAVEY WANG 8 8 O MEDICAL YANIRE T VISIT 15 ASSOCIATE MINUTES S CRITICAL [facility] ACCESS 8 8 [facility] EMERGENCY 29381 EMERGENCY [place], DEPT 8 8 COVERAGE CASTRO R VISIT HIGH CORPORATI SEVERITY& ON INC THREAT [facility] EMERGENCY 38142 [facility] 8 8 HOSP INC DEPARTMEN T VISIT HIGH/URGE NT SEVERITY OFFICE 35350 DAVEY WANG 8 8 O MEDICAL YANIRE T VISIT 15 ASSOCIATE MINUTES [facility] 8 8 [facility] EMERGENCY 85459 [facility] DEPT 8 8 HOSP INC VISIT HIGH SEVERITY& THREAT [facility] [place] - 8 8 [facility] CRITICAL [facility] ACCESS 8 8 [facility] CLINIC, [facility] 8 8 O MEDICAL HEALTH ASSOCIATE S OFFICE 49055 [facility] 8 8 O MEDICAL T VISIT 15 ASSOCIATE MINUTES S CLINIC, [facility] 8 8 O MEDICAL HEALTH ASSOCIATE S OFFICE 39957 [facility] 8 8 O MEDICAL T VISIT 15 ASSOCIATE MINUTES S OFFICE 26376 SHARAN TSANG OUTPATIEN 8 8 CASTRO H CASTRO H T VISIT 15 MINUTES OFFICE 47183 DAVEY WANG 8 8 O MEDICAL YANIRE T VISIT 15 ASSOCIATE MINUTES S OFFICE 62125 DAVEY PERDUE 8 8 CARDIOLOG KHALED T VISIT Y 15 MINUTES OFFICE 45676 [facility] OUTPATI[facility] 8 8 NATHALIE ZELAYA T VISIT 10 MINUTES OFFICE 64581 DAVEY PERDUE 8 8 CARDIOLOG KHALED T VISIT Y 15 MINUTES EMERGENCY 57175 [facility] 8 8 HOSP INC DEPARTMEN T VISIT HIGH/URGE NT SEVERITY CRITICAL [facility] ACC[facility] 8 8 [facility] HOSPITAL OFFICE 87605 DAVEY WANG 8 8 O MEDICAL YANIRE T VISIT 15 ASSOCIATE MINUTES S OFFICE 99200 [facility] MARISCAL 8 8 HEALTH CONUNTY T VISIT 5 [facility] MINUTES BANK ACCT DEPARTMEN T OFFICE 62564 DHS/CO [facility] MARISCAL 8 8 HEALTH CONUNTY T VISIT [facility] 10 BANK ACCT DEPARTMEN MINUTES T OFFICE 16433 DAVEY PERDUE 8 8 CARDIOLOG KHALED T VISIT Y 15 MINUTES OFFICE 32862 [facility] 8 8 NATHALIE ZELAYA T VISIT 10 MINUTES OFFICE 78809 CHIDI MARISCAL 8 8 CARDIOLOG CARDIOLOG T VISIT Y Y 15 MINUTES
--- OUTSIDE RECORDS SUMMARY | 2016-12-14 02:04 | External Medical Summary Rpt | CCD ---
Author Author , DONNIE FIELDS Address Unknown Phone [email or web address] Immunization Name Date Rout CVX Reac Dose Comm Prov Is Faci e tion ent ider Refu lity Give sed n Infl 09-2 141 999 Hist RH24 No RH24 uenz 6-20 oric a, 14 al Seas Info onal rmat ion - Sour ce Unsp ecif ied Infl 10-2 141 999 Hist RH24 No RH24 uenz 2-20 oric a, 13 al Seas Info onal rmat ion - Sour ce Unsp ecif ied
--- OUTSIDE RECORDS SUMMARY | 2016-12-14 02:04 | External Medical Summary Rpt | CCD ---
Author Author , DONNIE FIELDS Address Unknown Phone [email or web address] Immunization Name Date Rout CVX Reac Dose [...]
== END 2016-12-07 03:10 | disposition home or self-care (01) ==
LOC: ER 23:50
PROVIDERS: Emergency Medicine
DX: R42 Dizziness and giddiness (principal); S00.93XA Contusion of unspecified part of head, initial encounter; I48.2 Chronic atrial fibrillation; W20.8XXA Other cause of strike by thrown, projected or falling object, initial encounter; Y93.9 Activity, unspecified; Y92.129 Unspecified place in nursing home as the place of occurrence of the external cause; I10 Essential (primary) hypertension; E78.5 Hyperlipidemia, unspecified; E11.9 Type 2 diabetes mellitus without complications; E07.9 Disorder of thyroid, unspecified; F20.0 Paranoid schizophrenia; Z79.01 Long term (current) use of anticoagulants; Z79.84 Long term (current) use of oral hypoglycemic drugs; Z79.891 Long term (current) use of opiate analgesic; Z79.899 Other long term (current) drug therapy